=== PATIENT | female | born 1950 | race Caucasian/White ===

== ENCOUNTER 2016-05-18 14:56 | Outpatient (CLI) ==
[2012-10-30 01:27] VITALS: TEMP 98.6
[2016-04-29 20:22] VITALS: BMI 38.4
[2016-05-18 15:07] LABS: BASOPHILS % (AUTO) 0.2 % (0.0-3.0); EOSINOPHILS # (AUTO) 0.3 K/ul (0.0-0.7); EOSINOPHILS % (AUTO) 2.3 % (0.0-7.0); HEMOGLOBIN 10.3 g/dl (12.0-16.0); IMMATURE GRANULOCYTE % (AUTO) 0.3 % (0.0-5.0); LYMPHOCYTES # (AUTO) 1.9 K/uL (0.60-3.4); LYMPHOCYTES % (AUTO) 13.2 (10.0-50.0); MEAN CORPUSCULAR HEMOGLOBIN 27.5 pg (27.0-31.0); MEAN CORPUSCULAR HGB CONC 30.3 (31.8-35.4); MEAN CORPUSCULAR VOLUME 90.7 fl (81.0-99.0); MONOCYTES # (AUTO) 0.8 K/uL (0.4-2.0); MONOCYTES % (AUTO) 5.1 (0-10); NEUTROPHILS # (AUTO) 11.5 K/ul (2.0-6.9); NEUTROPHILS % (AUTO) 78.9; PLATELET COUNT 269 10^3/uL (140-440); RED BLOOD COUNT 3.75 10^6/ul (4.20-5.40); WHITE BLOOD COUNT 14.58 K/ul (4.6-10.2)
[2016-05-18 15:41] LABS: ALBUMIN/GLOBULIN RATIO 0.83; ANION GAP 12.7; BILIRUBIN,TOTAL 0.35 mg/dL (0.00-1.20); CALCIUM 9.3 mg/dL (8.2-10.2); CREATININE 0.75 mg/dL (0.60-1.30); POTASSIUM 3.7 mmol/L (3.5-5.10); TOTAL PROTEIN 6.6 g/dL (5.8-8.1)
== END 2016-05-18 14:57 | disposition home or self-care (01) ==
LOC: LAB 14:56
PROVIDERS: ATTEND Nurse Practitioner Family
DX: E78.5 Hyperlipidemia, unspecified (principal); E03.9 Hypothyroidism, unspecified; J44.9 Chronic obstructive pulmonary disease, unspecified; D64.9 Anemia, unspecified; R73.9 Hyperglycemia, unspecified; I10 Essential (primary) hypertension
CPT/HCPCS: 36415; 80053; 80061; 83036; 84443; 85025

== ENCOUNTER 2016-06-05 19:04 | Outpatient (CLI) ==
[2012-10-30 01:27] VITALS: TEMP 98.6
[2016-06-05 19:22] VITALS: BMI 38.0
== END 2016-06-05 19:05 | disposition home or self-care (01) ==
LOC: AMBL 19:04
PROVIDERS: ATTEND Emergency Medicine
DX: R06.9 Unspecified abnormalities of breathing (principal); R00.0 Tachycardia, unspecified; J44.9 Chronic obstructive pulmonary disease, unspecified

== ENCOUNTER 2016-06-05 19:16 | Inpatient (IN) ==
[2016-06-05] MEDS ORDERED: DUONEB NEB STA (19:20)
[2016-06-05] MEDS ORDERED: SOLU-MEDROL 125 MG IVP STA (19:20)
[2016-06-05 19:22] VITALS: BMI 38.0
[2016-06-05 19:43] LABS: BASOPHILS # (AUTO) 0.1 K/uL (0-0.2); BASOPHILS % (AUTO) 0.3 % (0.0-3.0); EOSINOPHILS # (AUTO) 0.3 K/ul (0.0-0.7); EOSINOPHILS % (AUTO) 1.8 % (0.0-7.0); HEMATOCRIT 32.9 % (37.0-47.0); HEMOGLOBIN 10.3 g/dl (12.0-16.0); IMMATURE GRANULOCYTE % (AUTO) 0.6 % (0.0-5.0); LYMPHOCYTES # (AUTO) 1.4 K/uL (0.60-3.4); LYMPHOCYTES % (AUTO) 7.9 (10.0-50.0); MEAN CORPUSCULAR HEMOGLOBIN 27.5 pg (27.0-31.0); MEAN CORPUSCULAR HGB CONC 31.3 (31.8-35.4); MEAN CORPUSCULAR VOLUME 87.7 fl (81.0-99.0); MONOCYTES # (AUTO) 0.9 K/uL (0.4-2.0); MONOCYTES % (AUTO) 5.1 (0-10); NEUTROPHILS # (AUTO) 15.4 K/ul (2.0-6.9); NEUTROPHILS % (AUTO) 84.3; PLATELET COUNT 308 10^3/uL (140-440); RED BLOOD COUNT 3.75 10^6/ul (4.20-5.40); WHITE BLOOD COUNT 18.18 K/ul (4.6-10.2)
--- NOTE | 2016-06-05 19:48 | ED.PDOC ---
General ED Provider: Dr. NAVJOT SANCHEZ Chief Complaint: Shortness of Air Stated Complaint: brought by ambulance for the worsening shortness of breath and also abdominal pain. Time Seen by Physician: 19:47 Mode of Arrival: Ambulance Information Source: Patient, EMT Nursing and Triage Documentation Reviewed and Agree: Yes Respiratory Complaint Exam - Shortness of Air Complaint/Exam Symptoms Are: Still present, Resolved Timing: Constant Initial Severity: Moderate Current Severity: Moderate Character: Reports: Dyspnea at rest Aggravating: Reports: Movement Alleviating: Reports: None Associated Signs and Symptoms: Reports: Cough, Wheezing, Calf swelling, Edema Related History: Reports: Similar episode History of Healthcare-Acquired Pneumonia: No Pulmonary Embolism Risk Factors: Reports: None Cardiac Risk Factors: Reports: None Pseudomonas Risk Factors: Reports: None Tuberculosis Risk Factors: Reports: None Home Oxygen Use: Yes Recent Stress Test: No Recent Echo/LV Function: No Respiratory Distress: Mild Stridor Present: No Tracheal Deviation: No Subcutaneous Emphysema: No Accessory Muscle Use: No Retractions: Not Present Diminished Breath Sounds: No Prolonged Expiratory Phase: Yes Unable to Speak Full Sentences: Yes Fatigue: No Leg Swelling: Yes Jt's Sign Present: No Grunting Respirations: No Differential Diagnoses: Pneumonia, Bronchitis, Other (diverticulitis) Review of Systems - Review Of Systems Constitutional: Reports: Fever, Malaise, Weakness Eyes: Reports: No symptoms Ears, Nose, Mouth, Throat: Reports: No symptoms Respiratory: Reports: Cough, Short of air Cardiac: Reports: No symptoms GI: Reports: Abdominal pain : Reports: No symptoms Musculoskeletal: Reports: No symptoms Skin: Reports: No symptoms Neurological: Reports: No symptoms Endocrine: Reports: No symptoms Hematologic/Lymphatic: Reports: No symptoms All Other Systems: Reviewed and Negative Past Medical History - Past Medical History Previously Healthy: Yes Endocrine: Reports: DM 2, Hypothyroid, Dyslipidemia Cardiovascular: Reports: CAD, Hypertension, CHF Respiratory: Reports: COPD Hematological: Reports: None Gastrointestinal: Reports: None Genitourinary: Reports: None Neuro/Psych: Reports: None Musculoskeletal: Reports: Arthritis, Back Pain Cancer: Reports: None Last Menstrual Period: na Other Pertinent Past Medical History: htn thy chol copd diverticulitis, PNA c- section - Surgical History General Surgical History: Reports: Unknown - Family History Family History: Reports: Unknown - Social History Smoking Status: Former smoker Hx Substance Use: Yes Alcohol Screening: None - Immunizations Tetanus Shot up to Date: No (unknown) Physical Exam - Physical Exam Appearance: Ill-appearing, Obese Ill-appearing: Mild Eyes: JM, EOMI, Conjunctiva clear ENT: Ears normal, Nose normal, Oropharynx normal Respiratory: Airway patent, Breath sounds clear, Breath sounds equal, Respirations nonlabored Cardiovascular: RRR, Pulses normal, No rub, No murmur GI/: Soft, No masses, Bowel sounds normal, No Organomegaly, Tender (left lower abdomen, ) Musculoskeletal: Normal strength, ROM intact, No edema, No calf tenderness Skin: Warm (left leg wound 1cm/1 cm, tender, no drainage, ), Dry, Normal color Neurological: Sensation intact, Motor intact, Reflexes intact, Cranial nerves intact, Alert, Oriented Psychiatric: Affect appropriate, Mood appropriate Interpretation - Radiology Interpretation Radiology Interpretation By: Radiologist Radiology Results: Positive (sigmoid diverticulitis) Exam Interpreted: CT Scan Physician Notification - Case Discussed Time of Notification: 21:56 (Dr Santos) Critical Care Note - Critical Care Note Total Time (mins): 0 Course - Course Hematology/Chemistry: 06/05/16 19:35 06/05/16 19:35 Orders, Labs, Meds: Lab Review 06/05/16 06/05/16 06/05/16 19:23 19:30 19:35 WBC 18.18 H RBC 3.75 L Hgb 10.3 L Hct 32.9 L MCV 87.7 MCH 27.5 MCHC 31.3 L RDW Coeff of [place] 16.5 H Plt Count 308 Immature Gran % (Auto) 0.6 Neut % (Auto) 84.3 Lymph % (Auto) 7.9 L [place] % (Auto) 5.1 Eos % (Auto) 1.8 Baso % (Auto) 0.3 Immature Gran # (Auto) 0.1 Neut # 15.4 H Lymph # 1.4 [place] # 0.9 Eos # 0.3 Baso # 0.1 D-Dimer 2.40 Puncture Site Rb O2 Saturation 100.0 ABG pH 7.535 H* ABG pCO2 42.5 ABG pO2 156.0 H ABG HCO3 35.9 H ABG Total CO2 37 H ABG Base Excess 13 H Cm Test + O2 Delivery Device Bnc Oxygen Liter Flow 4.00 FiO2 % 36.0 Sodium 139 Potassium 3.6 Chloride 98 Carbon Dioxide 30 Anion Gap 14.6 BUN 10 Creatinine 0.95 Estimated GFR (MDRD) 59.00 BUN/Creatinine Ratio 10.52 Glucose 135 H Calcium 9.5 Total Bilirubin 0.62 AST 18 ALT 18 Alkaline Phosphatase 75 Total Creatine Kinase 86 Troponin I < 0.0100 B-Natriuretic Peptide < 10 Total Protein 7.0 Albumin 2.8 L Globulin 4.2 Albumin/Globulin Ratio 0.67 Urine Color Urine Clarity Urine pH Ur Specific [place] Urine Protein Urine Glucose (UA) Urine Ketones Urine Blood Urine Nitrite Urine Bilirubin Urine Urobilinogen Ur Leukocyte Esterase Urine Microscopic RBC Ur Squamous Epith Cells Urine Bacteria Influenza A (Rapid) Negative Influenza B (Rapid) Negative 06/05/16 20:53 WBC RBC Hgb Hct MCV MCH MCHC RDW Coeff of [place] Plt Count Immature Gran % (Auto) Neut % (Auto) Lymph % (Auto) [place] % (Auto) Eos % (Auto) Baso % (Auto) Immature Gran # (Auto) Neut # Lymph # [place] # Eos # Baso # D-Dimer Puncture Site O2 Saturation ABG pH ABG pCO2 ABG pO2 ABG HCO3 ABG Total CO2 ABG Base Excess Cm Test O2 Delivery Device Oxygen Liter Flow FiO2 % Sodium Potassium Chloride Carbon Dioxide Anion Gap BUN Creatinine Estimated GFR (MDRD) BUN/Creatinine Ratio Glucose Calcium Total Bilirubin AST ALT Alkaline Phosphatase Total Creatine Kinase Troponin I B-Natriuretic Peptide Total Protein Albumin Globulin Albumin/Globulin Ratio Urine Color Yellow Urine Clarity Cloudy Urine pH 7.0 Ur Specific [place] 1.015 Urine Protein Trace Urine Glucose (UA) Negative Urine Ketones Trace Urine Blood Trace-intact Urine Nitrite Negative Urine Bilirubin 1+ Urine Urobilinogen 4.0 Ur Leukocyte Esterase Negative Urine Microscopic RBC 0-2 Ur Squamous Epith Cells 20-30 Urine Bacteria Trace Influenza A (Rapid) Influenza B (Rapid) Orders Category Date Time Status ABG DRAW REQUEST Stat CARDIO 06/05/16 19:23 Completed EKG-(ED ONLY) Stat CARDIO 06/05/16 19:23 Completed NEBULIZER TREATMENT Stat CARDIO 06/05/16 19:21 Completed ABG Stat LAB 06/05/16 19:23 Completed BLOOD CULTURE Stat LAB 06/05/16 19:27 Received BNP [B-TYPE NATRIURETIC PEPTIDE] Stat LAB 06/05/16 19:35 Completed CBC W/ AUTO DIFF Stat LAB 06/05/16 19:35 Completed COMPREHENSIVE METABOLIC PANEL Stat LAB 06/05/16 19:35 Completed CREATINE KINASE Stat LAB 06/05/16 19:35 Completed D-DIMER Stat LAB 06/05/16 19:35 Completed RAPID FLU A/B Stat LAB 06/05/16 19:30 Completed SPUTUM CULTURE Stat LAB 06/05/16 20:00 Received TROPONIN I Stat LAB 06/05/16 19:35 Completed UA [URINALYSIS C & S IF INDICATED] Stat LAB 06/05/16 20:53 Completed Ipratropium/Albuterol Neb [Duoneb] MEDS 06/05/16 19:20 Discontinued 1 vial NEB ONCE STA Methylprednisolone Sod Succ/Pf [Solu-Medrol 125 mg] MEDS 06/05/16 19:20 Discontinued 80 mg IVP ONCE STA CHEST, 1V AP ONLY Stat RADS 06/05/16 19:[address] ABDOMEN/PELVIS WO CONTRAST Stat RADS 06/05/16 20:03 Completed Medications Discontinued Medications Generic Name Dose Route Start Last Admin Trade Name Freq PRN Reason Stop Dose Admin Albuterol/Ipratropium 1 vial 06/05/16 19:20 06/05/16 19:58 Duoneb NEB 06/05/16 19:21 1 vial ONCE STA Administration Methylprednisolone Sodium Succinate 80 mg 06/05/16 19:20 06/05/16 19:38 Solu-Medrol 125 Mg IVP 06/05/16 19:21 80 mg ONCE STA Administration Vital Signs: Temp Pulse Resp BP Pulse Ox 06/05/16 20:03 100.0 F H 06/05/16 19:17 10.2 F L 110 H 36 H 151/94 H 98 Departure - Departure Time of Disposition: 21:57 Disposition: ADMITTED INPATIENT Discharge Problem: Sigmoid diverticulitis, Cellulitis of left lower extremity Instructions: Diverticulitis (ED) Condition: Stable Pt referred to PMD for follow-up: Yes Additional Instructions: Patient today tell that the left leg open wound is from the dog bite, couple days ago, own dog, it is alive, does not remember when was last tdap. Allergies/Adverse Reactions: Allergies No Known Allergies Allergy (Uncoded 04/29/16 17:28) Home Medications: Ambulatory Orders Albuterol Sulfate [Ventolin Hfa] 2 puff IH Q4HR PRN 02/17/16 Albuterol Sulfate 0.083% Neb [Albuterol 0.083% Neb] 1 vial NEB RTQ4H PRN Calcium Polycarbophil [Fiber-Caps] 4 cap PO DAILY PRN 06/05/16 Docusate Sodium [Colace] 300 mg PO BEDTIME 06/05/16 Ferrous Sulfate 650 mg PO BEDTIME 06/05/16 Levothyroxine Sodium [Synthroid] 75 mcg PO BEDTIME 06/05/16 Disposition Discussed With: Patient
[2016-06-05 19:56] LABS: ABG BASE EXCESS 13 (-2.0-2.0); ABG PCO2 42.5 mmHg (35-45); ABG PH 7.535 (7.35-7.45)
[2016-06-05 19:57] LABS: ABG HCO3 35.9 (22.0-26.0); ABG TCO2 37 (22.0-28.0)
[2016-06-05 19:57] LABS: FLU INTERNAL QC INTERNAL QC VALID; RAPID FLU A NEGATIVE (NEGATIVE); RAPID FLU B NEGATIVE (NEGATIVE)
[2016-06-05 20:10] LABS: ALANINE AMINOTRANSFERASE 18 U/L (12-78); ALBUMIN 2.8 g/dL (3.4-5.0); ALBUMIN/GLOBULIN RATIO 0.67; ALKALINE PHOSPHATASE 75 U/L (53-141); ANION GAP 14.6; ASPARTATE AMINO TRANSFERASE 18 U/L (15-37); BILIRUBIN,TOTAL 0.62 mg/dL (0.00-1.20); BLOOD UREA NITROGEN 10 mg/dL (7-18); BUN/CREATININE RATIO 10.52; CALCIUM 9.5 mg/dL (8.2-10.2); CARBON DIOXIDE 30 mmol/L (23-31); CHLORIDE 98 mmol/L (98-107); CREATINE KINASE 86 U/L; CREATININE 0.95 mg/dL (0.60-1.30); GLUCOSE 135 mg/dL (82-115); POTASSIUM 3.6 mmol/L (3.5-5.10); SODIUM 139 mmol/L (136-145)
--- NOTE | 2016-06-05 20:47 | CT ---
EXAM: CT of the abdomen and pelvis without contrast. HISTORY: Lower abdominal pain. PROCEDURE: Contiguous axial CT images of the abdomen and pelvis without contrast with coronal and s agittal reformats. FINDINGS: There is minimal bibasilar atelectasis. The liver, gallbladder, pancreas, spleen, adrenal glands and left kidney are normal in appearance. There is a fluid density cyst in the right kidney. There is a nonobstructive calcification in the cortex of the right kidney. The abdominal aorta is within normal limits in diameter. The appendix is normal in appearance. There is diverticulosis o f the colon. There is bowel wall thickening in the proximal sigmoid colon measuring up to 1.2 cm wi th adjacent inflammatory stranding consistent with diverticulitis. No free fluid or free air in the abdomen or pelvis. The bladder is minimally filled with no abnormality identified. The uterus is unremarkable. There are degenerative changes in the spine. Impression: Diverticulitis of the sigmoid colon as described. Nonobstructive right nephrolithiasis as described. Minimal bibasilar atelectasis.
--- NOTE | 2016-06-05 20:56 | DI ---
EXAM: Single view of the chest. History: Short of breath Comparison: Chest radiograph 04/29/2016 Findings: Heart size is normal. No focal consolidation. No appreciable pleural fluid and no pneum othorax. Calcified granulomas again seen within the thorax. No acute osseous abnormalities. Impression: No acute cardiopulmonary process.
[2016-06-05 20:58] LABS: BILIRUBIN,URINE 1+ (NEGATIVE); KETONES,URINE Trace (NEGATIVE); LEUKOCYTE ESTERASE ,URINE Negative (NEGATIVE); NITRITE,URINE Negative (NEGATIVE); PROTEIN,URINE Trace (NEGATIVE); URINE, BLOOD Trace-intact (NEGATIVE)
[2016-06-05 21:03] LABS: ADD URINE MICROSCOPIC YES
[2016-06-05 21:04] LABS: BACTERIA,URINE TRACE (NOT PRESENT)
[2016-06-05] MEDS ORDERED: TYLENOL PO PRN (22:02)
[2016-06-05] MEDS ORDERED: BOOSTRIX IM ONE (22:07)
[2016-06-05] MEDS ORDERED: FLAGYL 500 MG/100 ML 100 ML IV ONE (22:55)
[2016-06-05] MEDS ORDERED: FORTAZ ONE (22:56)
[2016-06-05] MEDS: SODIUM CHLORIDE 1,000 ML IV SCH (23:04)
[2016-06-05] MEDS: FLAGYL 500 MG/100 ML 500 MG in PREMIX 100 ML NS 1 BAG IV SCH (23:05)
[2016-06-06] MEDS: DUONEB NEB SCH ×5 (00:10→23:22)
[2016-06-06] MEDS: SODIUM CHLORIDE IV SCH ×4 (01:03→20:39)
[2016-06-06] MEDS: FORTAZ IV SCH ×4 (01:03→20:39)
[2016-06-06] MEDS ORDERED: FORTAZ ONE (04:26)
[2016-06-06] MEDS ORDERED: FLAGYL 500 MG/100 ML 100 ML IV ONE (04:27)
[2016-06-06] MEDS: FLAGYL 500 MG/100 ML 500 MG in PREMIX 100 ML NS 1 BAG IV SCH ×3 (04:33→21:56)
[2016-06-06 05:42] LABS: BASOPHILS % (AUTO) 0.2 % (0.0-3.0); LYMPHOCYTES # (AUTO) 0.8 K/uL (0.60-3.4); LYMPHOCYTES % (AUTO) 4.2 (10.0-50.0); MEAN CORPUSCULAR HEMOGLOBIN 27.6 pg (27.0-31.0); MEAN CORPUSCULAR HGB CONC 31.3 (31.8-35.4); MEAN CORPUSCULAR VOLUME 88.4 fl (81.0-99.0); MONOCYTES # (AUTO) 0.2 K/uL (0.4-2.0); MONOCYTES % (AUTO) 0.8 (0-10); NEUTROPHILS % (AUTO) 93.8; PLATELET COUNT 319 10^3/uL (140-440); RED BLOOD COUNT 3.62 10^6/ul (4.20-5.40); WHITE BLOOD COUNT 18.15 K/ul (4.6-10.2)
[2016-06-06 06:15] LABS: ALANINE AMINOTRANSFERASE 17 U/L (12-78); ALBUMIN 2.7 g/dL (3.4-5.0); ALBUMIN/GLOBULIN RATIO 0.66; ALKALINE PHOSPHATASE 75 U/L (53-141); ANION GAP 13.6; ASPARTATE AMINO TRANSFERASE 14 U/L (15-37); BILIRUBIN,TOTAL 0.65 mg/dL (0.00-1.20); BLOOD UREA NITROGEN 14 mg/dL (7-18); BUN/CREATININE RATIO 15.38; CALCIUM 9.4 mg/dL (8.2-10.2); CARBON DIOXIDE 29 mmol/L (23-31); CHLORIDE 98 mmol/L (98-107); CHOL/HDL RATIO 4.5 (4.5-5.5); CHOLESTEROL 166 mg/dL (0-200); CREATINE KINASE 87 U/L; CREATININE 0.91 mg/dL (0.60-1.30); GLUCOSE 189 mg/dL (82-115); HDL CHOLESTEROL 37 mg/dL (35-80); POTASSIUM 3.6 mmol/L (3.5-5.10); SODIUM 137 mmol/L (136-145); TOTAL PROTEIN 6.8 g/dL (5.8-8.1); TRIGLYCERIDES 78 mg/dL (30-150); VLDL CHOLESTEROL 16 mg/dL (2-30)
[2016-06-06] MEDS: SOLU-MEDROL 125 MG IVP SCH ×2 (08:37→20:40)
[2016-06-06] MEDS: LOVENOX SUBCUT SCH (08:37)
[2016-06-06 13:37] LABS: CREATINE KINASE 91 U/L
--- NOTE | 2016-06-06 16:04 | US ---
EXAM: Bilateral lower extremity venous doppler. HISTORY: Bilateral lower extremity pain and discoloration. COMPARISON: None available. TECHNIQUE: Multiple grayscale and color doppler images were obtained. FINDINGS: There is normal flow, compressibility and augmentation of flow within the right and left common femoral, greater saphenous, profunda, femoral, popliteal, posterior tibial, anterior tibial a nd peroneal veins. IMPRESSION: No evidence for right or left lower extremity deep vein thrombosis at the levels examined.
--- NOTE | 2016-06-06 18:08 | CT ---
EXAM: Noncontrast CT of the chest HISTORY: Cough, fever and shortness of breath COMPARISON: 06/05/2016 chest x-ray, 10/04/2014 CT TECHNIQUE: Noncontrast CT of the chest FINDINGS: There is mild right lower lobe atelectasis. Mild right upper lobe posterior tree in bud type opacit ies are seen on axial images 17 and 18 with a 5 mm nodule seen on axial image 16. Mild inferior rig ht upper lobe tree in bud type opacities are seen on axial images 24-27. Mild right middle lobe and right lower lobe tree in bud type opacities are also present. A right lower lobe calcified granulo ma is again seen. Minimal left upper lobe tree in bud type opacities seen posterior centrally on ax ial images 28-31. There is mild lingular atelectasis. No pneumothorax or pleural effusion is ident ified. Heart size is normal. Atherosclerotic calcifications are present, including the coronary arteries. Calcified mediastinal and right hilar lymph nodes are present. No mediastinal lymphadenopathy is s een. The thyroid is small or surgically absent. The gallbladder is mildly distended and without adjacent inflammatory changes. Splenic calcified gr anulomas are seen. Diverticulosis is partially imaged without evidence of diverticulitis. There ar e mild degenerative changes of the thoracic spine. IMPRESSION: Mild bilateral tree-in-bud type opacities compatible with small airway infection or inflammation. 5 mm right upper lobe pulmonary nodule which may be due to the inflammatory/infectious process. Fol low-up is recommended per the Fleischner Society guidelines as provided below. Mild atelectasis. Evidence of prior granulomatous infection. Atherosclerosis including the coronary arteries. Mildly distended gallbladder without CT evidence of acute cholecystitis. Comment: Fleischner Society Recommendations on Incidental Pulmonary Nodule Follow-up: -measurements are for average length and width, non solid (ground glass) or partly solid nodules may require longer follow-up. Low risk patient: (minimal or absent known risk factors) = 4mm- no follow up needed > 4-6mm- 12 mo, > 6-8mm- initial at 6-12 mo, then 18-24 mo if no change > 8mm- follow up CT at 3, 9, 24 mo, dynamic thin slice contrast CT, PET and/or biopsy High risk patient: (history of smoking or other risk factors) = 4mm- follow up CT at 12 mo > 4-6mm- initial CT at 6-12 mo then 18-24 mo if no change > 6-8mm- initial CT at 3-6, 9-12 then 18-24 mo > 8mm- same as low risk
[2016-06-07] MEDS: FLAGYL 500 MG/100 ML 500 MG in PREMIX 100 ML NS 1 BAG IV SCH ×3 (04:05→20:58)
[2016-06-07] MEDS: FORTAZ IV SCH ×3 (05:09→20:06)
[2016-06-07] MEDS: SODIUM CHLORIDE IV SCH ×3 (05:09→20:06)
[2016-06-07 05:28] LABS: HEMATOCRIT 29.7 % (37.0-47.0); HEMOGLOBIN 9.3 g/dl (12.0-16.0); LYMPHOCYTES # (AUTO) 1.3 K/uL (0.60-3.4); LYMPHOCYTES % (AUTO) 6.4 (10.0-50.0); MEAN CORPUSCULAR HEMOGLOBIN 27.8 pg (27.0-31.0); MEAN CORPUSCULAR HGB CONC 31.3 (31.8-35.4); MEAN CORPUSCULAR VOLUME 88.7 fl (81.0-99.0); MONOCYTES # (AUTO) 0.9 K/uL (0.4-2.0); MONOCYTES % (AUTO) 4.5 (0-10); NEUTROPHILS # (AUTO) 18.3 K/ul (2.0-6.9); NEUTROPHILS % (AUTO) 88.1; PLATELET COUNT 316 10^3/uL (140-440); RED BLOOD COUNT 3.35 10^6/ul (4.20-5.40); WHITE BLOOD COUNT 20.81 K/ul (4.6-10.2)
[2016-06-07] MEDS: DUONEB NEB SCH ×4 (05:35→23:18)
[2016-06-07 05:47] LABS: ALBUMIN 2.7 g/dL (3.4-5.0); ALBUMIN/GLOBULIN RATIO 0.75; ANION GAP 14.9; BILIRUBIN,TOTAL 0.26 mg/dL (0.00-1.20); BUN/CREATININE RATIO 15.21; CALCIUM 9.2 mg/dL (8.2-10.2); CREATININE 0.92 mg/dL (0.60-1.30); POTASSIUM 3.9 mmol/L (3.5-5.10); TOTAL PROTEIN 6.3 g/dL (5.8-8.1)
--- NOTE | 2016-06-07 09:09 | PN ---
CHIEF COMPLAINT: "I'm getting more short of breath", and also abdominal pain. " I had this pain previously." SOURCE OF HISTORY: Patient. HISTORY OF PRESENT ILLNESS: This is a 66 year old female who has chronic obstructive lung disease with respiratory failure with home oxygen. The patient also had a fever of 101.2 on presentation. The emergency room physician, Dr. Bailey, wanted to admit her to the hospital and I did advise him to wait until I get to see the patient, since this patient has an abdominal pain with diverticulitis which may need a surgical consultation. I did talk to the patient about that upon examining her that indeed she had tenderness and the CT scan does also show the diverticulitis. I re-informed the patient repeatedly that there is no surgeon to consult here at [facility] for the problem. She told me, however, that she does not want to be transferred and she will take the responsibility of staying here. I did again inform her that a times when we transfer the patient that the receiving facility or surgeon may make a comment that if she had been there a day or so before that she would not have this problem. The patient does understand that and again repeated her desire to stay at [facility]. Chest x-ray showed no acute cardiopulmonary processes and the Ct scan of the abdomen and pelvis showed diverticulitis of the sigmoid colon proximal portion about 1.2 cm in length with adjacent inflammatory stranding. CBC showed moderate leukocytosis 18,180, neutrophils 15, no immature cells or stabs. The patient was then admitted to the hospital for further treatment and diagnosis. PAST PERSONAL HISTORY: She had ventilation tubes inserted in both ears, hypertension, COPD, history of pneumonia, history of GERD, history of diverticulitis, anemia, . IV, Para IV, 1 , 0. FAMILY HISTORY: Father is still alive at 89 and is still self sufficient. The patient, however, is adopted. SOCIAL HISTORY: The patient is a and resides alone. She stopped smoking several years ago. MEDICATIONS: Prior to this admission Albuterol HFA two puffs every 4 hours prn Hydrochlorothiazide 25 mg daily Symbicort 160/4.5 mcg two puffs twice a day KCL 10 mEq twice a day Albuterol Sulfate 0.083% for nebulization in 3 cc vial one every 4 hours prn Ferrous Sulfate 325 mg tablet, two tablets at bedtime Fiber capsules 625 mg, four capsules daily Docusate Sodium 300 mg at bedtime Levothyroxine 75 mcg daily ALLERGIES: No known drug allergies. REVIEW OF SYSTEMS: CONSTITUTIONAL: The patient is with fever without any chills. She is more or less fatigued because of the shortness of breath that is increasing, as well as abdominal pain. SPEECH CORRECTION CONSULTANT: Denies any significant headaches. No history of seizures and no history of ataxia. VISUAL: Alexandre any double vision, blurred vision or transient loss of vision. AUDITORY: Hearing is adequate. He denies any tinnitus, pain or drainage. RESPIRATORY: The patient has increasing shortness of breath with cough. She had stopped smoking last April after the , so less than a month or a month. CARDIOVASCULAR: Denies any chest pain or chest tightness. GASTROINTESTINAL: The appetite has somewhat decreased. This patient is taking a laxative. She denies any diarrhea. She has abdominal pain, more so on the left lower quadrant. GENITOURINARY: She denies any burning on urination and she does have some frequency. MUSCULOSKELETAL: The patient has some leg cramps at times. She has pain on her knees and hips with getting up. INTEGUMENT: The patient claims to have a dog bite on the left lateral leg some two to three weeks ago. It was a dog that belongs to the family and the dog is still healthy at this time. Skin also on the legs are thicker from the edema. She denies any rash or pruritus. ENDOCRINE: Denies any polyuria, polydipsia. She denies any diabetes. HEMATOLOGIC: Denies any prolonged bleeding. PSYCHIATRIC: The patient's affect seemed to be normal, as well as the thought processes. PHYSICAL EXAMINATION: GENERAL: 66 year old female , obese with a BMI of 38.1 was admitted to the hospital because of increasing shortness of breath and abdominal pain in the last three to four days. VITAL SIGNS: Temperature at presentation 101.2, pulse rate 110, respiratory rate 36, oxygen saturation 98 on room air. Blood pressure 151/94. Pain in the abdomen on the pain scale, maybe one. HEAD: Unremarkable. FACE: Symmetrical and equal with no facial weakness and no remarkable tenderness in the frontal or maxillary sinus areas. EYES: Pupils equal/reactive to light about 3 mm in size. Conjunctivae slightly pale. Sclerae not icteric. EARS: Unremarkable. MOUTH: Unremarkable. THROAT: No inflammation, no tumors. NECK: No masses. No bruit. No tenderness. LUNGS: Breath sounds are heard in both sides with rales at both bases. Minimal expiratory wheeze. HEART: Audible and regular with good tones. No murmurs. ABDOMEN: Flat, protuberant and pendulous with marked tenderness in the left lower quadrant. There is some tenderness to the rest of the abdomen. Bowel sounds are active. LOWER EXTREMITIES: Markedly edematous legs with abnormal skin that has lost texture. The patient had a lacerated skin on the left lateral leg from a dog bite some two to three weeks ago and the dog belongs to the family and the dog still is alive and healthy. Pedal pulses are absent. UPPER EXTREMITIES: Symmetrical and equal. ASSESSMENT: 1. SIGMOID DIVERTICULITIS 2. CHRONIC OBSTRUCTIVE PULMONARY DISEASE WITH EXACERBATION 3. MARKEDLY ELEVATED BMI 4. BILATERAL CHRONIC LEG EDEMA 5. DOG BITE LEFT LATERAL LEG 6. HISTORY OF HYPERTENSION 7. HISTORY OF HYPOTHYROIDISM REPLACED 8. HISTORY OF DYSLIPIDEMIA 9. HISTORY OF MTDD
[2016-06-07] MEDS: LOVENOX SUBCUT SCH (09:43)
[2016-06-07] MEDS: SOLU-MEDROL 125 MG IVP SCH (09:44)
[2016-06-07] MEDS: SODIUM CHLORIDE 1,000 ML IV SCH (10:46)
[2016-06-07 16:29] LABS: C-PEPTIDE 16.6 ng/mL (1.1-4.4); INSULIN 165.8 uIU/mL (2.6-24.9)
[2016-06-08] MEDS: FORTAZ IV SCH ×3 (04:23→20:19)
[2016-06-08] MEDS: SODIUM CHLORIDE IV SCH ×3 (04:23→20:19)
[2016-06-08] MEDS: DUONEB NEB SCH ×4 (05:13→23:08)
[2016-06-08 05:16] LABS: BASOPHILS % (AUTO) 0.1 % (0.0-3.0); EOSINOPHILS % (AUTO) 0.1 % (0.0-7.0); HEMATOCRIT 29.9 % (37.0-47.0); HEMOGLOBIN 9.4 g/dl (12.0-16.0); LYMPHOCYTES # (AUTO) 2.7 K/uL (0.60-3.4); MEAN CORPUSCULAR HEMOGLOBIN 28.1 pg (27.0-31.0); MEAN CORPUSCULAR HGB CONC 31.4 (31.8-35.4); MEAN CORPUSCULAR VOLUME 89.3 fl (81.0-99.0); MONOCYTES % (AUTO) 5.5 (0-10); NEUTROPHILS # (AUTO) 13.9 K/ul (2.0-6.9); NEUTROPHILS % (AUTO) 78.3; PLATELET COUNT 321 10^3/uL (140-440); RED BLOOD COUNT 3.35 10^6/ul (4.20-5.40); WHITE BLOOD COUNT 17.78 K/ul (4.6-10.2)
[2016-06-08] MEDS: FLAGYL 500 MG/100 ML 500 MG in PREMIX 100 ML NS 1 BAG IV SCH ×3 (05:16→21:21)
[2016-06-08 05:38] LABS: ALBUMIN 2.6 g/dL (3.4-5.0); ALBUMIN/GLOBULIN RATIO 0.74; ANION GAP 13.4; BILIRUBIN,TOTAL 0.19 mg/dL (0.00-1.20); BUN/CREATININE RATIO 19.78; CALCIUM 8.8 mg/dL (8.2-10.2); CREATININE 0.91 mg/dL (0.60-1.30); POTASSIUM 3.4 mmol/L (3.5-5.10); TOTAL PROTEIN 6.1 g/dL (5.8-8.1)
--- NOTE | 2016-06-08 08:48 | PN ---
DATE OF VISIT: 06/07/16 The patient, today, is alert and not dyspneic, nor tachypneic. She claims that the pain in the abdomen is much less. The patient had not run any fever since 06/06/16. The patient was sitting on the commode when I examined her. There is still some tenderness in the left lower quadrant. LABS: The CBC today showed increasing WBC and this might be due to the steroid and the steroid is then discontinued today. The Tylenol also was discontinued. The WBC today was 20,810 and it was 18,118 on admission two days ago. The CMP is essentially unremarkable, except for sugar of 147 and Albumin of 2.7. VITAL SIGNS: The patient's vital signs today at 2 p.m. on 06/07/16 shows a temperature of 98.1, pulse 74, blood pressure 132/58, respiratory rate 22, no oxygen saturation recorded. There was one recorded at 10 a.m. at 98 with 2 Liters of nasal oxygen. LUNGS: Still has rales bilaterally, basal. HEART: Normal sinus rhythm. LOWER EXTREMITIES: The legs is still edematous and the patient is noncompliant as to being in bed. She always sits up and hangs her legs and her legs has significant edema now with some hypertrophic skin reaction to the edema. I reiterated to the patient that if she would develop an ulcer on the legs that it would be very difficult to heal. It is better prevented rather than treated. The prevention is to elevate the legs all of the time possible. She can be up and walking when she should be only sitting when she is going for the personal needs to the bathroom and also on eating. She could be up several times a day, as long as she is walking and go back to bed and elevate the legs. PROGNOSIS: Guarded. MTDD
[2016-06-08] MEDS: LOVENOX SUBCUT SCH (09:00)
[2016-06-08] MEDS ORDERED: FORTAZ IV SCH (13:00)
[2016-06-08] MEDS ORDERED: SODIUM CHLORIDE IV SCH (13:00)
[2016-06-08 15:16] LABS: BACTERIA IDENTIFICATION Final report (.)
[2016-06-08] MEDS ORDERED: FORTAZ IV ONE ×2 (16:19→20:19)
[2016-06-08] MEDS ORDERED: SODIUM CHLORIDE IV ONE ×2 (16:19→20:19)
[2016-06-08] MEDS: SODIUM CHLORIDE 1,000 ML IV SCH (20:15)
[2016-06-09] MEDS: SODIUM CHLORIDE 1,000 ML IV SCH (02:34)
[2016-06-09] MEDS ORDERED: SODIUM CHLORIDE IV ONE ×2 (04:02→13:23)
[2016-06-09] MEDS: SODIUM CHLORIDE IV SCH ×2 (04:02→13:23)
[2016-06-09] MEDS: FORTAZ IV SCH ×2 (04:02→13:23)
[2016-06-09] MEDS ORDERED: FORTAZ IV ONE ×2 (04:02→13:23)
[2016-06-09] MEDS: DUONEB NEB SCH ×2 (05:03→11:06)
[2016-06-09] MEDS: FLAGYL 500 MG/100 ML 500 MG in PREMIX 100 ML NS 1 BAG IV SCH ×2 (05:07→14:29)
[2016-06-09 06:47] LABS: BASOPHILS % (AUTO) 0.3 % (0.0-3.0); EOSINOPHILS # (AUTO) 0.2 K/ul (0.0-0.7); EOSINOPHILS % (AUTO) 1.4 % (0.0-7.0); HEMATOCRIT 32.8 % (37.0-47.0); HEMOGLOBIN 10.1 g/dl (12.0-16.0); IMMATURE GRANULOCYTE % (AUTO) 0.9 % (0.0-5.0); LYMPHOCYTES # (AUTO) 2.5 K/uL (0.60-3.4); LYMPHOCYTES % (AUTO) 17.7 (10.0-50.0); MEAN CORPUSCULAR HGB CONC 30.8 (31.8-35.4); MEAN CORPUSCULAR VOLUME 90.9 fl (81.0-99.0); MONOCYTES % (AUTO) 6.7 (0-10); NEUTROPHILS # (AUTO) 10.5 K/ul (2.0-6.9); PLATELET COUNT 309 10^3/uL (140-440); RED BLOOD COUNT 3.61 10^6/ul (4.20-5.40); WHITE BLOOD COUNT 14.39 K/ul (4.6-10.2)
[2016-06-09 07:16] LABS: ALBUMIN 2.7 g/dL (3.4-5.0); ALBUMIN/GLOBULIN RATIO 0.82; ANION GAP 12.5; BILIRUBIN,TOTAL 0.2 mg/dL (0.00-1.20); BUN/CREATININE RATIO 15.21; CALCIUM 8.4 mg/dL (8.2-10.2); CREATININE 0.92 mg/dL (0.60-1.30); POTASSIUM 3.5 mmol/L (3.5-5.10)
--- NOTE | 2016-06-09 09:28 | PN ---
DATE OF VISIT: 06/08/16 66 year old female who was admitted to the hospital because of sigmoid diverticulitis, as well as bronchitis bilateral. The findings were described as tree-in-bud type opacities. VITAL SIGNS: 06/08/16 at 6 p.m. showed a temperature of 98.1, pulse 72, blood pressure 136/64, respiratory rate 18, oxygen saturation 97 at 2 Liters. LUNGS:The patient does have diminished breath sounds with some rales at the left side. No obvious rales on the right. This patient was laying on the left side during auscultation. ABDOMEN: The abdomen is protuberant and she denies any remarkable tenderness to palpation in the left lower quadrant where she was quite exquisitely tender on admission. HEART: The heart is normal sinus rhythm. LOWER EXTREMITIES: Somewhat remarkable edema with thickened skin from a blister. I had advised this patient to be in bed and elevate the legs, but every time I had walked into the room this patient is sitting in the chair. When she is not sitting, she goes out and according to the nurses probably to smoke. She claims that she doesn't smoke. She stopped right after [place]. I had ordered nicotine and metabolite levels. I still do not have the report or results at this time. The WBC is still elevated at 17,780. The hemoglobin is down to 9.4, but more or less essentially the same as admission when you account for the hydration that she had received during this admission. The RDW Coefficient is elevated at 16.8. Electrolytes with slightly lower potassium. Her fasting Insulin level is 165.8 and her plasma C-peptid is 16.6. Her A1C was normal with an elevated sugar. This patient is not on any anti-diabetic medications. PROGNOSIS: Poor, since the patient is not compliant. MTDD
[2016-06-09] MEDS: LOVENOX SUBCUT SCH (09:40)
--- NOTE | 2016-06-09 13:20 | DI ---
EXAM: Two views of the chest. History: Bronchitis. Comparison: Chest radiograph 06/05/2016 Findings: Heart size is normal. No pneumothorax. Interval development of a mild left basilar infi ltrate and trace left pleural effusion. No acute osseous abnormalities. Impression: Interval development of mild left basilar infiltrate and trace left pleural effusion.
--- NOTE | 2016-06-09 13:45 | CT ---
Exam: CT abdomen and pelvis without contrast. Clinical indication: Follow-up sigmoid diverticulitis. TECHNIQUE: Axial unenhanced CT images of the abdomen and pelvis were obtained followed by coronal a nd sagittal reformats. Comparison is made to the prior study dated 06/05/2016. Findings: There is no free intra-abdominal gas or fluid. The previously noted inflammatory changes adjacent the proximal sigmoid colon which contains extensi ve diverticulosis is again seen and grossly unchanged in the short interval. There is no evidence o f acute complication. There is extensive colonic diverticulosis. The remainder of the bowel is unr emarkable. The gallbladder is absent. The liver, adrenals, pancreas, and spleen are unremarkable, other than incidental punctate splenic c alcifications consistent with old healed granulomatous disease. There is a small renal cortical cyst within the mid to inferior right kidney containing some thin pe ripheral calcifications. There is no evidence of renal calculi bilaterally. The bilateral kidneys are unremarkable. There are no enlarged abdominal or pelvic lymph nodes, by size criteria. There is a small calcified involuted uterine fibroid. The pelvic organs are otherwise grossly unremarkable, given the limitat ions of CT for evaluating them. There is a right lower lobe calcified pulmonary granuloma, consistent with incidental old healed gra nulomatous disease. There is some bibasilar areas of scarring. The remainder the visualized portio ns of the lower thorax are within normal limits. There is multilevel lumbar degenerative disc disease. Impression: 1. No gross interval change in the uncomplicated sigmoid diverticulitis. 2. Extensive colonic diverticulosis. 3. Otherwise unremarkable CT of the abdomen and pelvis, given the limitations of an unenhanced CT.
[2016-06-09 15:07] VITALS: BP 128/76
[2016-06-09 15:13] VITALS: TEMP 97
--- NOTE | 2016-06-13 13:12 | DS ---
PATIENT IDENTIFICATION: 66 year old female who is known to have chronic obstructive lung disease with respiratory failure with home oxygen was seen in the emergency room because of increasing shortness of breath, as well as abdominal pain since about three days ago or so. The patient, indeed, had tenderness in the abdomen, more on the left lower quadrant. CT scan of the abdomen showed some acute diverticulitis in the sigmoid colon. Lungs had bilateral basal rales and minimal expiratory wheezing. The patient's abdomen was markedly protuberant with tenderness in the left lower quadrant. The lower extremities were markedly edematous with chronic blisters on both legs, more on the left side. There was an area on the right lower anterior leg which appears to be lichenified. Pedal pulses are absent in the edematous feet. HOSPITAL COURSE: This patient was treated with Ceftazidime 1 gram every 8 hours IV and Flagyl 500 mg every 8 hours. The patient's WBC had remained elevated and a steroid injection was discontinued believing that may have contributed to the leukocytosis. Initial white cell count was 18,180 and did rise to 20,810. On the day of discharge, the WBC was down to 14,390. Arterial blood gases on admission showed a pH of 7.535, PCO2 42, PO2 156, bicarbonate 39.9, total CO2 37, oxygen saturation 100%, FIO2 36. The patient on the following day claimed that her abdomen is better and a less amount of pain and less tenderness. She is still using 2 Liters of oxygen, which she uses at home. The patient was sitting in the chair. I had discussed again with her with regards to her legs that the legs need to be elevated to prevent any ulceration, since there is already blisters and the skin is thickened. Her sugar was slightly elevated and the A1C was 5.4. The fasting Insulin level was 165.8 and the plasma C-peptid level was 16.6, both are markedly elevated. The patient remained afebrile for the rest of the hospital days and the abdomen was without any remarkable tenderness. The patient at the time of discharge was alert, ambulatory. She was not dyspneic, nor tachypneic, but is using 2 Liters of nasal oxygen. LUNGS: The lungs still have rales at the left base and none on the right. HEART: The heart is audible with good tones. ABDOMEN: The abdomen is markedly protuberant with no tenderness in the left lower quadrant. This patient has intertrigo in the abdominal skin folds. This patient was advised to wash it with soap and water and dry it with a liberal arts and human[employer] chair. LOWER EXTREMITIES: The lower extremities were essentially the same. The area of the dog bite on the left lateral leg is scabbing with no signs of active infection. The pedal pulses are still absent. The chemistry on discharge was essentially normal, except for slightly lower Albumin at 2.7. PLAN: 1. The patient is instructed to see the provider at the clinic this coming Monday. 2. She is prescribed Flagyl 500 mg three times a day. 3. Resume previous medications of Avelox 400 mg daily. 4. Keep the foot elevated above the heart as often as possible and as much as possible. FINAL DIAGNOSIS: 1. SIGMOID DIVERTICULITIS, IMPROVED 2. LEFT LOWER LOBE PNEUMONITIS, MAYBE 3. CHRONIC OBSTRUCTIVE PULMONARY DISEASE WITH RESPIRATORY FAILURE 4. ELEVATED BMI 38.1 5. INSULIN RESISTANT SYNDROME 6. BILATERAL LEG EDEMA, SEVERE 7. PERIPHERAL ARTERIAL DISEASE PROGNOSIS: Poor to guarded. MTDD
== END 2016-06-09 17:45 | disposition home or self-care (01) | DRG 391 ==
LOC: ED 19:16 → MEDSURG B 22:03
PROVIDERS: ADMIT General Practice; ATTEND General Practice
DX: K57.32 Diverticulitis of large intestine without perforation or abscess without bleeding (principal); J18.9 Pneumonia, unspecified organism; J44.1 Chronic obstructive pulmonary disease with (acute) exacerbation; J96.10 Chronic respiratory failure, unspecified whether with hypoxia or hypercapnia; L03.116 Cellulitis of left lower limb; R60.0 Localized edema; R23.8 Other skin changes; E88.81 Metabolic syndrome and other insulin resistance; E03.9 Hypothyroidism, unspecified; I73.9 Peripheral vascular disease, unspecified; S80.872A Other superficial bite, left lower leg, initial encounter; W54.0XXA Bitten by dog, initial encounter; Z99.81 Dependence on supplemental oxygen; Z79.899 Other long term (current) drug therapy; Z68.38 Body mass index [BMI] 38.0-38.9, adult; Z91.19 Patient's noncompliance with other medical treatment and regimen; Z87.891 Personal history of nicotine dependence
CPT/HCPCS: 36415; 80053; 80061; 80323; 81001; 82550; 82803; 83036; 83525; 83880; 84484; 84681; 85025; 85379; 87040; 87070; 87077; 87186; 87804; 90471; 93005; 93010; 94640; 96374; 97802; 99223; 99232; 99239; 99284

== ENCOUNTER 2016-08-02 03:57 | Inpatient (IN) | payer OTHER ==
[2016-08-02] MEDS ORDERED: XOPENEX 1.25 MG NEB STA (04:24)
[2016-08-02] MEDS ORDERED: SOLU-MEDROL 125 MG IVP STA (04:24)
[2016-08-02 04:50] LABS: ABG PH 7.474 (7.35-7.45)
[2016-08-02 04:51] LABS: ABG BASE EXCESS 8 (-2.0-2.0); ABG HCO3 31.1 (22.0-26.0); ABG PCO2 42.3 mmHg (35-45); ABG TCO2 32 (22.0-28.0)
[2016-08-02 04:54] LABS: BASOPHILS # (AUTO) 0.1 K/uL (0-0.2); BASOPHILS % (AUTO) 0.3 % (0.0-3.0); EOSINOPHILS # (AUTO) 0.2 K/ul (0.0-0.7); EOSINOPHILS % (AUTO) 1.1 % (0.0-7.0); HEMOGLOBIN 10.1 g/dl (12.0-16.0); IMMATURE GRANULOCYTE % (AUTO) 0.6 % (0.0-5.0); LYMPHOCYTES # (AUTO) 1.8 K/uL (0.60-3.4); LYMPHOCYTES % (AUTO) 10.1 (10.0-50.0); MEAN CORPUSCULAR HEMOGLOBIN 27.4 pg (27.0-31.0); MEAN CORPUSCULAR HGB CONC 31.6 (31.8-35.4); MEAN CORPUSCULAR VOLUME 86.7 fl (81.0-99.0); MONOCYTES # (AUTO) 1.2 K/uL (0.4-2.0); MONOCYTES % (AUTO) 6.8 (0-10); NEUTROPHILS # (AUTO) 14.6 K/ul (2.0-6.9); NEUTROPHILS % (AUTO) 81.1; PLATELET COUNT 326 10^3/uL (140-440); RED BLOOD COUNT 3.69 10^6/ul (4.20-5.40); WHITE BLOOD COUNT 17.98 K/ul (4.6-10.2)
[2016-08-02] MEDS: DUONEB NEB SCH ×4 (05:15→23:13)
[2016-08-02] MEDS ORDERED: DUONEB NEB ONE (05:15)
[2016-08-02 05:20] LABS: ALANINE AMINOTRANSFERASE 37 U/L (12-78); ALBUMIN 2.5 g/dL (3.4-5.0); ALBUMIN/GLOBULIN RATIO 0.51; ALKALINE PHOSPHATASE 106 U/L (53-141); ANION GAP 16.4; ASPARTATE AMINO TRANSFERASE 36 U/L (15-37); BILIRUBIN,TOTAL 0.94 mg/dL (0.00-1.20); BLOOD UREA NITROGEN 12 mg/dL (7-18); BUN/CREATININE RATIO 15.58; CALCIUM 9.6 mg/dL (8.2-10.2); CARBON DIOXIDE 27 mmol/L (23-31); CHLORIDE 95 mmol/L (98-107); CREATINE KINASE 67 U/L; CREATININE 0.77 mg/dL (0.60-1.30); GLUCOSE 111 mg/dL (82-115); POTASSIUM 3.4 mmol/L (3.5-5.10); SODIUM 135 mmol/L (136-145); TOTAL PROTEIN 7.4 g/dL (5.8-8.1)
--- NOTE | 2016-08-02 05:25 | CT ---
Exam: CT of the chest without contrast History: Dyspnea Technique: [address] of the chest without intravascular contrast FINDINGS: Nodular infiltrate in the anterior right upper lobe and right middle lobe. Consolidative change of the right middle lobe. The left lung is clear. Atherosclerotic calcification of the aor ta and coronary arteries. Granulomatous lymph node calcifications of the mediastinum and right hilu m. No pathologic lymph node enlargement or abundance. No acute findings of the chest wall soft tis sues or bony thorax. No acute findings of the upper abdomen. Impression: 1. Nodular and consolidative pneumonia of the right upper and right middle lobe.
--- NOTE | 2016-08-02 05:41 | ED.PDOC ---
General ED Provider: Dr. JULIETA ZAIDI-ER Chief Complaint: Shortness of Air Stated Complaint: im coughing up yellow stuff and im short of air Time Seen by Physician: 04:10 Mode of Arrival: Ambulance Information Source: Patient Exam Limitations: No limitations [facility] and Triage Documentation Reviewed and Agree: Yes Respiratory Complaint Exam - Shortness of Air Complaint/Exam Onset/Duration: 3 days Symptoms Are: Still present Timing: Constant Initial Severity: Mild Current Severity: Moderate Character: Reports: Dyspnea at rest, Dyspnea on exertion Aggravating: Reports: None Alleviating: Reports: Bronchodilators Associated Signs and Symptoms: Reports: Cough, Fever. Denies: Wheezing, Chest pain with cough, Chest pain, Chills, Diaphoresis, Nasal congestion, Dizziness, Calf swelling, Edema, Rapid breathing, Labored breathing, Decreased intake Related History: Reports: Similar episode History of Healthcare-Acquired Pneumonia: No Pseudomonas Risk Factors: Reports: Chronic Lung Disease Tuberculosis Risk Factors: Reports: Chronic Resp. Faliure Recent Stress Test: No Recent Echo/LV Function: No Respiratory Distress: None Stridor Present: No Tracheal Deviation: No Subcutaneous Emphysema: No Accessory Muscle Use: No Prolonged Expiratory Phase: No Unable to Speak Full Sentences: No Fatigue: No Leg Swelling: No Jt's Sign Present: No Grunting Respirations: No Kussmaul Respirations: No Differential Diagnoses: Pneumonia, Bronchitis Quality Indicator For Non-Traumatic Chest Pain/Syncope: EKG Performed Review of Systems - Review Of Systems Constitutional: Reports: Chills, Diaphoresis, Weakness Eyes: Reports: No symptoms Ears, Nose, Mouth, Throat: Reports: No symptoms Respiratory: Reports: Cough Cardiac: Reports: No symptoms GI: Reports: No symptoms : Reports: No symptoms Musculoskeletal: Reports: No symptoms Skin: Reports: No symptoms Neurological: Reports: No symptoms Endocrine: Reports: No symptoms Hematologic/Lymphatic: Reports: No symptoms All Other Systems: Reviewed and Negative Past Medical History - Past Medical History Previously Healthy: Yes Endocrine: Reports: DM 2, Hypothyroid, Dyslipidemia Cardiovascular: Reports: CAD, Hypertension, CHF Respiratory: Reports: COPD Hematological: Reports: None Gastrointestinal: Reports: None Genitourinary: Reports: None Neuro/Psych: Reports: None Musculoskeletal: Reports: Arthritis, Back Pain Cancer: Reports: None Last Menstrual Period: post menopausal Other Pertinent Past Medical History: htn thy chol copd diverticulitis, PNA c- section - Surgical History General Surgical History: Reports: Unknown - Family History Family History: Reports: Unknown - Social History Smoking Status: Former smoker Hx Substance Use: No Alcohol Screening: None - Immunizations Tetanus Shot up to Date: Yes (2016) Physical Exam - Physical Exam Appearance: Well-appearing, No pain distress, Well-nourished Eyes: JM, EOMI, Conjunctiva clear ENT: Ears normal, Nose normal, Oropharynx normal Neck: Supple Respiratory: Crackles, Rhonchi Cardiovascular: RRR, Pulses normal, No rub, No murmur GI/: Soft Musculoskeletal: Normal strength Skin: Warm, Dry, Normal color Neurological: Sensation intact Psychiatric: Affect appropriate, Mood appropriate Interpretation - Radiology Interpretation Radiology Interpretation By: Radiologist Radiology Results: Positive Exam Interpreted: CT Scan - EKG Interpretation Time of EKG #1: 05:40 Rate: Normal Rhythm: Sinus Ectopy: None [place]: NL ST Segment: Normal Physician Notification - Case Discussed Physician Notified: dr vargas Time of Notification: 05:44 Critical Care Note - Critical Care Note Total Time (mins): 0 Course - Course Hematology/Chemistry: 08/02/16 04:54 08/02/16 04:54 Orders, Labs, Meds: Lab Review 08/02/16 08/02/16 04:22 04:54 WBC 17.98 H RBC 3.69 L Hgb 10.1 L Hct 32.0 L MCV 86.7 MCH 27.4 MCHC 31.6 L RDW Coeff of [place] 15.7 H Plt Count 326 Immature Gran % (Auto) 0.6 Neut % (Auto) 81.1 Lymph % (Auto) 10.1 [place] % (Auto) 6.8 Eos % (Auto) 1.1 Baso % (Auto) 0.3 Immature Gran # (Auto) 0.1 Neut # 14.6 H Lymph # 1.8 [place] # 1.2 Eos # 0.2 Baso # 0.1 D-Dimer (Manual) 4194.27 Puncture Site Rb O2 Saturation 95.0 ABG pH 7.474 H ABG pCO2 42.3 ABG pO2 72.0 L ABG HCO3 31.1 H ABG Total CO2 32 H ABG Base Excess 8 H Cm Test + O2 Delivery Device Nc Oxygen Liter Flow 2.00 FiO2 % 28.0 Sodium 135 L Potassium 3.4 L Chloride 95 L Carbon Dioxide 27 Anion Gap 16.4 BUN 12 Creatinine 0.77 Estimated GFR (MDRD) 75.00 BUN/Creatinine Ratio 15.58 Glucose 111 Calcium 9.6 Total Bilirubin 0.94 AST 36 ALT 37 Alkaline Phosphatase 106 Total Creatine Kinase 67 Troponin I < 0.0100 B-Natriuretic Peptide < 10 Total Protein 7.4 Albumin 2.5 L Globulin 4.9 Albumin/Globulin Ratio 0.51 Orders Category Date Time Status ABG DRAW REQUEST Stat CARDIO 08/02/16 04:23 Completed EKG-(ED ONLY) Stat CARDIO 08/02/16 04:23 Completed NEBULIZER TREATMENT Stat CARDIO 08/02/16 04:24 Completed ED IV/MEDIPORT/POWERPORT .ONCE EMERGENCY 08/02/16 04:24 Active ABG Stat LAB 08/02/16 04:22 Completed B-TYPE NATRIURETIC PEPTIDE Stat LAB 08/02/16 04:54 Completed CBC W/ AUTO DIFF Stat LAB 08/02/16 04:54 Completed COMPREHENSIVE METABOLIC PANEL Stat LAB 08/02/16 04:54 Completed CREATINE KINASE Stat LAB 08/02/16 04:54 Completed D-DIMER Stat LAB 08/02/16 04:54 Completed TROPONIN I Stat LAB 08/02/16 04:54 Completed 0.9 % Sodium Chloride [Saline Flush] MEDS 08/02/16 04:24 Ordered 1 syr IVF PRN PRN Levalbuterol HCl [Xopenex 1.25 mg] MEDS 08/02/16 04:24 Discontinued 1 vial NEB ONCE STA Methylprednisolone Sod Succ/Pf [Solu-Medrol 125 mg] MEDS 08/02/16 04:24 Discontinued 125 [address] IVP ONCE [address] CHEST W/O CONTRAST Stat RADS 08/02/16 04:24 Completed Medications Generic Name Dose Route Start Last Admin Trade Name Freq PRN Reason Stop Dose Admin Sodium Chloride 1 syr 08/02/16 04:24 08/02/16 04:56 Saline Flush IVF 1 syr PRN PRN Administration To flush IV Discontinued Medications Generic Name Dose Route Start Last Admin Trade Name Freq PRN Reason Stop Dose Admin Levalbuterol HCl 1 vial 08/02/16 04:24 08/02/16 04:51 Xopenex 1.25 Mg NEB 08/02/16 04:25 1 vial ONCE STA Administration Methylprednisolone Sodium Succinate 125 mg 08/02/16 04:24 08/02/16 04:45 Solu-Medrol 125 Mg IVP 08/02/16 04:25 125 mg ONCE STA Administration Vital Signs: Temp Pulse Resp BP Pulse Ox 08/02/16 04:00 99.3 F 96 H 30 H 113/75 95 Departure - Departure Time of Disposition: 05:44 Disposition: ADMITTED INPATIENT Discharge Problem: Pneumonia Qualifiers: Pneumonia type: due to unspecified organism Laterality: right Lung location: middle lobe of lung Qualifier Code: (J18.1) Lobar pneumonia, unspecified organism Instructions: Community Acquired Pneumonia (ED) Condition: Good Pt referred to PMD for follow-up: Yes Allergies/Adverse Reactions: Allergies No Known Allergies Allergy (Uncoded 08/02/16 05:15) Home Medications: Ambulatory Orders Albuterol Sulfate [Ventolin Hfa] 2 puff IH Q4HR PRN 02/17/16 Calcium Polycarbophil [Fiber-Caps] 4 cap PO DAILY PRN 06/05/16 Docusate Sodium [Colace] 300 mg PO BEDTIME 06/05/16 Levothyroxine Sodium [Synthroid] 75 mcg PO BEDTIME 06/05/16 Disposition Discussed With: Patient
[2016-08-02] MEDS ORDERED: LEVAQUIN 750 MG in PREMIX 150 ML D5W 1 BAG IV STA (05:48)
[2016-08-02] MEDS ORDERED: ANTIVERT PO PRN (05:50)
[2016-08-02] MEDS ORDERED: LEVAQUIN 150 ML IV ONE (05:54)
[2016-08-02] MEDS ORDERED: SODIUM CHLORIDE 1,000 ML IV SCH (06:00)
[2016-08-02 06:39] VITALS: BMI 36.0
[2016-08-02] MEDS: SYMBICORT 160-4.5 MCG INHALER IH SCH ×2 (08:33→20:24)
[2016-08-02] MEDS: MICRO-K CAP PO SCH ×2 (08:33→20:25)
[2016-08-02] MEDS ORDERED: NON-FORMULARY MEDICATION (Potassium Chloride [Potassium Chloride] 10 MEQ) PO SCH ×22 (09:00)
[2016-08-02] MEDS ORDERED: LOVENOX SUBCUT SCH (09:00)
[2016-08-02] MEDS ORDERED: FERROUS SULFATE PO SCH ×2 (21:00)
[2016-08-02] MEDS ORDERED: SYNTHROID PO SCH (21:00)
[2016-08-02] MEDS ORDERED: COLACE PO SCH (21:00)
[2016-08-02] MEDS ORDERED: HYDROCHLOROTHIAZIDE PO SCH (21:00)
[2016-08-02 22:12] VITALS: TEMP 97.3
--- NOTE | 2016-08-02 22:31 | CT ---
EXAM: CT abdomen pelvis without intravenous contrast 08/02/2016. Sagittal and coronal reformatted images obtained HISTORY: Lower abdominal pain COMPARISON: 06/09/2016, 08/02/2016 FINDINGS: Please refer to report of CT chest for findings within the lung bases. The liver shows n o acute abnormality. Gallbladder appears contracted. The adrenal glands and kidneys show no acute abnormality. The spleen and pancreas show no acute abn ormality. There is no evidence of bowel obstruction. Normal appendix. Unremarkable urinary bladder. There is no free fluid. Extensive colonic diverticulosis. No free air identified. There has been interval development of ovoid mottled soft tissue and gas collection within the anter ior abdominal wall musculature. On axial series image 110 this area measures approximately 8.3 x 3. 4 cm diameter. This likely represents abscess. This is not well characterized due to lack of intrav enous contrast. Correlate with surgical history. No surgical history provided. IMPRESSION: 1. Acute diverticulitis of the sigmoid colon. There is no free air or free fluid within the anatom ic abdomen or pelvis. Inflammatory stranding / edema surrounds the sigmoid colon. 2. Interval development of a mixed soft tissue density and gas collection within the anterior abdom inal wall musculature. This likely represents abscess. Limited characterization due to the lack of intravenous contrast. Correlate with surgical history. 3. This would be amendable to percutaneous drainage. Contrast enhanced examination could also be c onsidered for further characterization.
[2016-08-02] MEDS ORDERED: FLAGYL 500 MG/100 ML 500 MG in PREMIX 100 ML NS 1 BAG IV SCH (23:00)
[2016-08-02] MEDS ORDERED: FLAGYL 500 MG/100 ML 100 ML IV ONE (23:04)
[2016-08-02 23:12] LABS: BASOPHILS % (AUTO) 0.1 % (0.0-3.0); EOSINOPHILS % (AUTO) 0.1 % (0.0-7.0); HEMATOCRIT 32.6 % (37.0-47.0); HEMOGLOBIN 10.5 g/dl (12.0-16.0); LYMPHOCYTES # (AUTO) 1.3 K/uL (0.60-3.4); LYMPHOCYTES % (AUTO) 6.7 (10.0-50.0); MEAN CORPUSCULAR HEMOGLOBIN 27.9 pg (27.0-31.0); MEAN CORPUSCULAR HGB CONC 32.2 (31.8-35.4); MEAN CORPUSCULAR VOLUME 86.5 fl (81.0-99.0); MONOCYTES % (AUTO) 5.1 (0-10); NEUTROPHILS # (AUTO) 17.2 K/ul (2.0-6.9); PLATELET COUNT 354 10^3/uL (140-440); RED BLOOD COUNT 3.77 10^6/ul (4.20-5.40); WHITE BLOOD COUNT 19.77 K/ul (4.6-10.2)
--- NOTE | 2016-08-03 00:33 | CT ---
EXAM: CT of the abdomen and pelvis without IV contrast. HISTORY: Abdominal pain. PROCEDURE: After the intravenous injection of contrast contiguous axial CT images of the abdomen an d pelvis were obtained with coronal and sagittal reformats. FINDINGS: Comparison made with CT of 08/02/2016 at 21 15. There is minimal bibasilar consolidation. The liver is normal in appearance. There is a gallstone in the gallbladder. The gallbladder is w ithin normal limits in size. The pancreas, adrenal glands and left kidney are normal in appearance. There is a 1.6 cm complex lesion in the middle pole of the right kidney. There is a fluid density cyst in the lower pole of the right kidney. There are multiple ill-defined low density lesions in t he spleen measuring up to 2.1 cm. The abdominal aorta is within normal limits in diameter. The appen wicho is normal in appearance. There is ill-defined bowel wall thickening in the proximal sigmoid colo n with adjacent inflammatory stranding consistent with diverticulitis. No free fluid or free air in the abdomen or pelvis. Redemonstrated is an intramuscular collection of fluid and air in the anterio r wall of the pelvis measuring 3.7 x 7.9 cm consistent with an abscess. There are degenerative mesa ges in the spine. Impression: Diverticulitis of the sigmoid colon as described. 7.9 x 3.7 cm abscess in the anterior wall of the pelvis as described. 1.6 cm complex lesion in the middle pole of the right kidney. Recommend outpatient ultrasound for f urther evaluation. Multiple ill-defined low density lesions in the spleen measuring up to 2.1 cm. Recommend outpatient ultrasound for further evaluation. Cholelithiasis as described. Minimal bibasilar atelectasis and/or pneumonia.
[2016-08-03 03:03] VITALS: BP 95/63
[2016-08-03] MEDS ORDERED: LEVAQUIN 750 MG in PREMIX 150 ML D5W 1 BAG IV SCH (09:00)
--- NOTE | 2016-08-03 10:45 | HP ---
CHIEF COMPLAINT: Shortness of breath, abdominal pain more on the left side aggravated by coughing. Coughing with some purulent sputum. SOURCE OF HISTORY: Patient and nurse triage at the emergency room and MD notes. HISTORY OF PRESENT ILLNESS: The patient claimed to have experienced increasing shortness of breath with cough in the last two days with slightly pale purulent sputum. She also did mention abdominal pain which more or less was aggravated by coughing. The area is tender to touch. The patient claimed to have been diagnosed with diverticulitis. The last bowel movement was three or four days ago. The patient was evaluated in the emergency room and subsequently admitted. CT scan of the chest showed nodular and consolidated pneumonia of the right upper and middle lobe. CBC was 17,980, neutrophils 14.6, no bands or stabs. D-Dimer was high at 4,194.27. Arterial blood gases acceptable. Cardiac enzymes normal. BNP normal, less than 10. Procalcitonin 0.28, still below normal. PAST PERSONAL HISTORY: The patient had tubes inserted in both ears. Hypertension, COPD with respiratory failure using oxygen two to three liters per minute at home. Past history of pneumonia. History of GERD, history of diverticulitis, anemia, , IV, Para III, -1. FAMILY HISTORY: Father is still alive at 101 and is still self sufficient. The patient, however, is adopted. SOCIAL HISTORY: The patient is a and resides alone. She stopped smoking at the beginning of this year. MEDICATIONS: Prior to this admission. Albuterol Sulfate two puffs every 4 hours prn HCTZ 25 mg daily Symbicort 160/4.5 mcg two puffs twice daily KCL 10 mEq tablet twice a day Fiber-Caps 625 mg tablet, four caps daily Levothyroxine Sodium 75 mcg daily Ferrous Sulfate 325 mg tablet, two tablets at bedtime Albuterol Sulfate 2.5 mg/3 cc per nebulizer every 4 to 6 hours prn Meclizine 25 mg tablet twice a day as needed Colace 100 mg capsule, three capsules daily ALLERGIES: No known drug allergies. REVIEW OF SYSTEMS: CONSTITUTIONAL: The patient had fever and weakness and maybe sweating. No actual shaking chills. FAN BLADE [employer]ER: Denies any headaches or dizziness. VISUAL: Denies any double vision, blurred vision or transient loss of vision. AUDITORY: Denies any pain, tinnitus or drainage in both ears and no significant hearing loss. RESPIRATORY: The patient had been coughing for the last three days with some slightly purulent sputum. She is complaining of increasing shortness of breath in spite of her oxygen use. She stopped smoking in the early part of this year. She denies any hemoptysis. CARDIOVASCULAR: Denies any chest pain or chest tightness. GASTROINTESTINAL: The patient does have pain in the lower abdomen, more on the left lower quadrant. The pain is aggravated by coughing. She denies any diarrhea, but somewhat constipated. Her last BM was three to four days ago. GENITOURINARY: Denies any burning on urination. She does have frequency. MUSCULOSKELETAL: Bilateral knee pain, as well as hips. She has problems getting up. She also does have muscular spasms intermittently. INTEGUMENT: No rash or pruritus. She had a history of dog bite. She says this happened some two to three weeks before the last admission and the dog was still fine at that point in time. ENDOCRINE: Denies any polyuria or polydipsia. HEMATOLOGIC: Denies any prolonged bleeding. PSYCHIATRIC: The patient's affect is normal. PHYSICAL EXAMINATION: GENERAL: We have a 66 year old female admitted to the hospital because of pneumonia on the right upper and middle lobe with increasing shortness of breath, plus low grade temperature. VITAL SIGNS: Temperature on the floor 98, pulse 91, blood pressure 108/69, respiratory rate 24, oxygen saturation 96 at two liters of oxygen per nasal. HEAD: Unremarkable. FACE: Symmetrical and equal with no facial weakness. No remarkable tenderness in the frontal or maxillary sinus areas to palpation under pressure. EYES: Pupils equal/reactive to light about 3 mm in size. Conjunctivae slightly pale. Sclerae not icteric. EARS: Unremarkable. MOUTH: Unremarkable. THROAT: No inflammation, tumors or exudates. NECK: No masses. No bruit. No tenderness. CHEST: Symmetrical and equal with satisfactory expansion. LUNGS: Breath sounds are heard in both sides, diminished. A few rales at both bases and some expiratory wheezing posteriorly. HEART: Audible and regular with good tones. No murmurs. ABDOMEN: Protuberant, pendulous with marked tenderness in the left lower quadrant. No remarkable tenderness in the right, as well as the upper abdomen. Bowel sounds are active. No masses palpable. LOWER EXTREMITIES: Markedly edematous legs with abnormal skin texture. Pedal pulses are absent. UPPER EXTREMITIES: Symmetrical and equal. ASSESSMENT: 1. RIGHT UPPER AND MIDDLE LOBE PNEUMONITIS 2. SIGMOID DIVERTICULITIS 3. CHRONIC OBSTRUCTIVE LUNG DISEASE WITH EXACERBATION 4. CHRONIC RESPIRATORY FAILURE WITH EXACERBATION 5. MARKEDLY ELEVATED BMI 6. BILATERAL CHRONIC LEG EDEMA 7. HISTORY OF HYPERTENSION 8. HISTORY OF HYPOTHYROIDISM, REPLACED 9. HISTORY OF DYSLIPIDEMIA 10. HISTORY OF 11. HISTORY OF CHRONIC TOBACCO USE AND ABUSE, STOPPED BEGINNING OF THIS YEAR PROGNOSIS: Guarded. MTDD
--- NOTE | 2016-08-03 10:51 | PN ---
DATE OF VISIT: 08/02/16 AT 1 P.M. The patient was admitted earlier and the patient claimed that she is feeling better after she had a bowel movement. She still has pain in the lower abdomen with soreness in the left lower quadrant. She is coughing less. She was seen at the emergency room early in the morning at 4:10 a.m. VITAL SIGNS: The last vital signs prior to 1 p.m. was 6:15 a.m. with a temperature 98.4, pulse 98, blood pressure 127/71, respiratory rate 24, oxygen saturation 96 at 2 liters. LUNGS: With diminished breath sounds with a few rales and some expiratory wheezing, but minimal The patient claimed that she is feeling better. JOVANYD
--- NOTE | 2016-08-19 09:03 | DS ---
PATIENT IDENTIFICATION: 66 year old female was admitted to the hospital via the emergency room complaining of increasing shortness of breath in the last two days with some purulent sputum. CT of the chest showed right upper and middle lobe pneumonitis. She also did complain of abdominal pain, more in the lower abdomen aggravated by coughing. This patient was known to have previous episodes of diverticulitis. HOSPITAL COURSE: The patient was alert, oriented and cooperative and not in any distress at the time of examination. LUNGS: Breath sounds were diminished in both sides with rales bilateral, basal and some expiratory wheezing. HEART: Normal sinus rhythm. ABDOMEN: Tender, more on the left lower quadrant. Bowel sounds are active. 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 The patient during midday claimed that she is feeling better, although she still has tenderness. Labs at the emergency room showed a WBC of 17,990 and the lab done in the evening of 08/02/2016 at 23:10 was 19,770, slightly higher than initial. Neutrophils had increased from 14.6 to 17. No significant stabs or bands. The D-Dimer was elevated at 4,194.27. CT ordered was noncontrasted in the emergency. The patient was given Levofloxacin 750 mg IV once in the emergency room and continued on daily. She also was given Lovenox 40 mg subcutaneously daily, as well as Methylprednisolone 125 mg IV once. She was continued on her Albuterol inhaler and Symbicort and the rest of the other medications. The patient on 08/02/2016 at 5:38 p.m. showed a temperature of 98.0, pulse 91, blood pressure 108/69, respiratory rate 24, oxygen saturation 96 at 2 Liters. Before that her temperature was also normal. Because of the persistent abdominal pain and some slightly raised area towards the left side of the abdomen from the midline, a CT scan of the abdomen was done without contrast. The scan was read as acute diverticulitis of the sigmoid colon. No free fluid in the pelvis. Soft tissue mass with gas in the anterior abdominal wall. Most likely represents an abscess. The radiologist mentioned that limited characterization because of lack of contrast. A contrasted study was then done and now shows 7.9 by 3.7 abscess in the anterior abdominal wall of the pelvis. I.6 cm complex lesion in the middle pole of the right kidney. Ultrasound was recommended. Cholelithiasis as described. Because of the abscess formation, this patient would most likely need a surgical consultation and transfer to another facility with surgical availability was pursued. I did talk to the hospitalist at [facility] and then indicated that this patient was admitted for right upper and middle lobe pneumonia with shortness of breath, but also had history of diverticulitis and now has an abdominal wall abscess with source undetermined. The hospitalist graciously accepted the patient for transfer. This patient was then transferred to [facility] with a diagnosis: 1. Right upper and middle lobe pneumonia 2. Abdominal wall abscess 3. Sigmoid diverticulitis, acute 4. History of chronic obstructive lung disease 5. History of chronic respiratory failure 6. Elevated BMI 7. History of hypertension 8. History of hypothyroidism, replaced 9. History of dyslipidemia 10. History of 11. History of chronic tobacco use and abuse, stopped recently PROGNOSIS: Guarded. MTDD
== END 2016-08-03 02:45 | disposition short-term general hospital (02) | DRG 194 ==
LOC: ED 03:57 → MEDSURG B 05:49
PROVIDERS: ADMIT General Practice; ATTEND General Practice
DX: J18.1 Lobar pneumonia, unspecified organism (principal); L02.211 Cutaneous abscess of abdominal wall; K57.32 Diverticulitis of large intestine without perforation or abscess without bleeding; K80.20 Calculus of gallbladder without cholecystitis without obstruction; N28.9 Disorder of kidney and ureter, unspecified; I10 Essential (primary) hypertension; E03.8 Other specified hypothyroidism; R06.02 Shortness of breath; E78.5 Hyperlipidemia, unspecified; R63.8 Other symptoms and signs concerning food and fluid intake; Z79.899 Other long term (current) drug therapy; Z87.09 Personal history of other diseases of the respiratory system; Z99.81 Dependence on supplemental oxygen; Z87.891 Personal history of nicotine dependence
CPT/HCPCS: 36415; 80053; 82550; 82803; 83880; 84145; 84484; 85025; 85379; 87040; 93005; 93010; 94640; 96374; 96375; 99223; 99239; 99285

== ENCOUNTER 2016-08-03 02:48 | Outpatient (CLI) ==
[2012-10-30 01:27] VITALS: TEMP 98.6
[2016-08-02 06:39] VITALS: BMI 36.0
== END 2016-08-03 02:49 | disposition home or self-care (01) ==
LOC: AMBL 02:48
PROVIDERS: ATTEND Emergency Medicine
DX: L02.211 Cutaneous abscess of abdominal wall (principal); J18.9 Pneumonia, unspecified organism; J96.00 Acute respiratory failure, unspecified whether with hypoxia or hypercapnia

== ENCOUNTER 2016-08-23 21:06 | Emergency (ER) | payer OTHER ==
[2016-08-23 21:32] VITALS: BP 82/48; TEMP 101.4; BMI 32.8
[2016-08-23 21:42] LABS: BASOPHILS % (AUTO) 0.2 % (0.0-3.0); EOSINOPHILS # (AUTO) 0.1 K/ul (0.0-0.7); EOSINOPHILS % (AUTO) 1.3 % (0.0-7.0); HEMATOCRIT 29.7 % (37.0-47.0); HEMOGLOBIN 9.6 g/dl (12.0-16.0); IMMATURE GRANULOCYTE % (AUTO) 0.3 % (0.0-5.0); LYMPHOCYTES # (AUTO) 1.3 K/uL (0.60-3.4); LYMPHOCYTES % (AUTO) 12.9 (10.0-50.0); MEAN CORPUSCULAR HEMOGLOBIN 28.5 pg (27.0-31.0); MEAN CORPUSCULAR HGB CONC 32.3 (31.8-35.4); MEAN CORPUSCULAR VOLUME 88.1 fl (81.0-99.0); MONOCYTES # (AUTO) 1.1 K/uL (0.4-2.0); MONOCYTES % (AUTO) 10.9 (0-10); NEUTROPHILS # (AUTO) 7.6 K/ul (2.0-6.9); NEUTROPHILS % (AUTO) 74.4; PLATELET COUNT 271 10^3/uL (140-440); RED BLOOD COUNT 3.37 10^6/ul (4.20-5.40); WHITE BLOOD COUNT 10.19 K/ul (4.6-10.2)
--- NOTE | 2016-08-23 21:50 | CT ---
EXAM: CT abdomen and pelvis without contrast HISTORY: Lower abdominal pain, history of diverticulitis TECHNIQUE: Multi-slice transaxial helical with coronal and sagittal reformed images COMPARISON: CT abdomen/pelvis from 08/02/2016 FINDINGS: There are small alveolar opacities in the right lower lobe, lingula, and middle lobe. Thes e are probably unchanged since the prior CT. The heart size is normal. No pericardial or pleural e ffusions are detected. A calcified granuloma is noted in the right lower lobe. The hepatic attenuation is minimally low diffusely relative to the spleen. The gallbladder is prese nt without biliary dilatation. The pancreas and adrenal glands are grossly normal. Calcified granu gege are detected in the otherwise normal spleen. The kidneys and ureters are grossly normal withi n the confines of a noncontrast exam. Hypodense renal lesions as seen on the prior CT are not visua lized without contrast. The nonopacified bladder is grossly normal. Diverticula arise from the large bowel diffusely. There is suggestion of mild focal fat stranding a djacent to the distal descending colon without drainable fluid collections are free air associated. There is a fluid collection within the ventral lower abdominal wall that is increased in size since the previous examination with multiple foci of gas measuring 16.6 x 5.1 x 8.5 cm. Loops of intesti ne extend close to the region of the ventral abdominal wall. Small bowel loops are mildly dilated d iffusely without distension. The appendix is normal. The uterus and adnexa are grossly normal. The bones are free of suspicious osteolytic or osteoblastic lesions. IMPRESSION: 1. Large gas containing fluid collection in the lower ventral abdominal wall, increased in size sin ce previous study. An abscess is a possibility.? Colocutaneous fistula. 2. Minimal diffuse hepatic steatosis. 3. Old granulomas disease. 4. Colonic diverticulosis and colonic diverticulitis at the distal descending colon.
[2016-08-23 22:04] LABS: ALBUMIN 2.4 g/dL (3.4-5.0); ALBUMIN/GLOBULIN RATIO 0.59; ANION GAP 14.2; BILIRUBIN,TOTAL 0.98 mg/dL (0.00-1.20); BUN/CREATININE RATIO 9.63; CALCIUM 8.8 mg/dL (8.2-10.2); CREATININE 0.83 mg/dL (0.60-1.30); POTASSIUM 3.2 mmol/L (3.5-5.10); TOTAL PROTEIN 6.5 g/dL (5.8-8.1)
[2016-08-23] MEDS ORDERED: MORPHINE 2 MG/ML SYRINGE IVP STA (22:36)
[2016-08-23] MEDS ORDERED: LEVAQUIN 500 MG in PREMIX 100 ML D5W 1 BAG IV STA (22:36)
[2016-08-23] MEDS ORDERED: ZOFRAN 4 MG/2 ML IVP STA (22:37)
--- NOTE | 2016-08-23 22:37 | ED.PDOC ---
General ED Provider: Dr. KARLY POLLOCK Chief Complaint: Abdominal Pain Stated Complaint: Patient states that she had an abdominal abscess 2 weeks ago for which she was seen in [facility]. Jenniferse has pain now across the abdomen and feels like it is Diverticulitis again. Time Seen by Physician: 21:30 Mode of Arrival: Ambulance Information Source: Patient, EMT Exam Limitations: No limitations Primary Care Provider: NAVJOT MCCURDY Nursing and Triage Documentation Reviewed and Agree: Yes GI Complaint Exam - Abdominal Pain Complaint/Exam Onset: Gradual Duration: 2 days Symptoms Are: Still present Timing: Constant Location of Pain: Discrete (lower abdomen) Radiates To: Reports: Back Character: Reports: Dull, Aching, Throbbing Aggravating: Reports: Movement Alleviating: Reports: Rest Associated Signs and Symptoms: Reports: Back pain, Nausea, Decreased activity. Denies: Diaphoresis, Fever, Cough, Chest pain, Dizziness, Constipation, Blood in stool, Dysuria, Urinary frequency, Decreased urine output, Decreased appetite , Vaginal bleeding, Vaginal discharge, Vomiting, Diarrhea, Sore throat AAA Risk Factors: Reports: None Cardiac Risk Factors: Reports: None Ectopic Risk Factors: Reports: None Ovarian Torsion Risk Factors: Reports: None Surgical Obstruction Risk Factors: Reports: Prior abdominal surgery Abdominal Findings: Absent: Pulsatile mass, Abdominal distention, Unequal femoral pulses, Rebound tenderness, Peritoneal signs, [place]'s [place] tender, CVA Tenderness, Hernia, Inguinal swelling Differential Diagnoses: Gastroenteritis Review of Systems - Review Of Systems Constitutional: Reports: No symptoms Eyes: Reports: No symptoms Ears, Nose, Mouth, Throat: Reports: No symptoms Respiratory: Reports: No symptoms Cardiac: Reports: No symptoms GI: Reports: Abdominal pain, Nausea, Poor appetite, Vomiting : Reports: No symptoms Musculoskeletal: Reports: No symptoms Skin: Reports: No symptoms Neurological: Reports: No symptoms Endocrine: Reports: No symptoms Hematologic/Lymphatic: Reports: No symptoms All Other Systems: Reviewed and Negative Past Medical History - Past Medical History Previously Healthy: Yes Endocrine: Reports: DM 2, Hypothyroid, Dyslipidemia Cardiovascular: Reports: CAD, Hypertension, CHF Respiratory: Reports: COPD Hematological: Reports: None Gastrointestinal: Reports: None Genitourinary: Reports: None Neuro/Psych: Reports: None Musculoskeletal: Reports: Arthritis, Back Pain Cancer: Reports: None Last Menstrual Period: UNKNOWN Other Pertinent Past Medical History: htn thy chol copd diverticulitis, PNA c- section - Surgical History General Surgical History: Reports: Other (Abscess drainage from lower abdomen. ) , Unknown - Family History Family History: Reports: Unknown - Social History Smoking Status: Current some day smoker Hx Substance Use: No Alcohol Screening: None - Immunizations Tetanus Shot up to Date: Yes Physical Exam - Physical Exam Appearance: Ill-appearing, Obese Ill-appearing: Mild Pain Distress: Moderate Eyes: JM, EOMI, Conjunctiva clear ENT: Ears normal, Nose normal, Oropharynx normal Neck: Supple Respiratory: Airway patent, Breath sounds clear, Breath sounds equal, Respirations nonlabored Cardiovascular: RRR GI/: Soft, Tender, Bowel sounds hyperactive Musculoskeletal: Normal strength, ROM intact, No edema, No calf tenderness Skin: Warm, Dry, Normal color Neurological: Sensation intact, Motor intact, Reflexes intact, Cranial nerves intact, Alert, Oriented Psychiatric: Anxious Interpretation - Radiology Interpretation Radiology Interpretation By: Radiologist Radiology Results: Positive (Large gas containing fluid collection in the Lower ventral Abdominal wall. increased in size from last study, Colonic diverticulosis and Diverticulitis distal descending colon .) Re-Evaluation - Re-Evaluation Time of Re-Evaluation: 22:52 Status: Improved Vital Signs Stable: Yes (117/66) Physician Notification - Case Discussed Physician Notified: Dr Mcbride Time of Notification: 12:05 (Admit to Hospitalist at [facility]. ) Critical Care Note - Critical Care Note Total Time (mins): 0 Course - Course Hematology/Chemistry: 08/23/16 21:35 08/23/16 21:35 Orders, Labs, Meds: Lab Review 08/23/16 08/23/16 21:35 22:40 WBC 10.19 RBC 3.37 L Hgb 9.6 L Hct 29.7 L MCV 88.1 MCH 28.5 MCHC 32.3 RDW Coeff of [place] 17.3 H Plt Count 271 Immature Gran % (Auto) 0.3 Neut % (Auto) 74.4 Lymph % (Auto) 12.9 [place] % (Auto) 10.9 H Eos % (Auto) 1.3 Baso % (Auto) 0.2 Immature Gran # (Auto) 0.0 Neut # 7.6 H Lymph # 1.3 [place] # 1.1 Eos # 0.1 Baso # 0.0 Sodium 134 L Potassium 3.2 L Chloride 95 L Carbon Dioxide 28 Anion Gap 14.2 BUN 8 Creatinine 0.83 Estimated GFR (MDRD) 69.00 BUN/Creatinine Ratio 9.63 Glucose 128 H Lactic Acid 7.9 Calcium 8.8 Total Bilirubin 0.98 AST 21 ALT 15 Alkaline Phosphatase 73 Total Protein 6.5 Albumin 2.4 L Globulin 4.1 Albumin/Globulin Ratio 0.59 Amylase 16 L Lipase 9 Orders Category Date Time Status ED IV/MEDIPORT/POWERPORT .ONCE EMERGENCY 08/23/16 21:08 Active AMYLASE Stat LAB 08/23/16 21:35 Completed BLOOD CULTURE Stat LAB 08/23/16 22:44 Results CBC W/ AUTO DIFF Stat LAB 08/23/16 21:35 Completed COMPREHENSIVE METABOLIC PANEL Stat LAB 08/23/16 21:35 Completed LACTIC ACID Stat LAB 08/23/16 22:40 Completed LIPASE Stat LAB 08/23/16 21:35 Completed 0.9 % Sodium Chloride [Saline Flush] MEDS 08/23/16 21:07 Discontinued 1 syr IVF PRN PRN Levofloxacin/D5w [Levaquin] 100 ml MEDS 08/23/16 22:42 Discontinued IV .STK-MED Levofloxacin/D5w [Levaquin] 500 mg MEDS 08/23/16 22:36 Discontinued Premix 100 ml D5w 1 bag IV ONCE Metronidazole/Sodium Chloride [Flagyl 500 mg/100 ml] MEDS 08/24/16 01:11 Discontinued 100 ml IV .STK-MED Metronidazole/Sodium Chloride [Flagyl 500 mg/100 ml] MEDS 08/24/16 01:05 Discontinued 500 mg Premix 100 ml Ns 1 bag IV ONCE Morphine Sulfate [Morphine 2 mg/ml Syringe] MEDS 08/23/16 22:36 Discontinued 2 mg IVP ONCE STA Morphine Sulfate [Morphine 2 mg/ml Syringe] MEDS 08/24/16 01:28 Discontinued 2 mg IVP ONCE STA Ondansetron HCl/Pf [Zofran 4 mg/2 ml] MEDS 08/23/16 22:37 Discontinued 4 mg IVP ONCE STA Sodium Chloride 0.9% [Sodium Chloride] 500 ml MEDS 08/23/16 22:52 Discontinued IV 30 mls/hr CT ABDOMEN/PELVIS WO CONTRAST Stat RADS 08/23/16 21:07 Completed Medications Discontinued Medications Generic Name Dose Route Start Last Admin Trade Name Freq PRN Reason Stop Dose Admin Levofloxacin/Dextrose 500 mg/ 100 mls @ 100 mls/hr 08/23/16 22:36 08/23/16 22 :50 Dextrose IV 08/23/16 23:35 100 mls/hr ONCE STA Administration Sodium Chloride 500 mls @ 30 mls/hr 08/23/16 22:52 08/23/16 23:45 Sodium Chloride IV 08/24/16 15:31 30 mls/hr .[id number] STA Administration Metronidazole 500 mg/ Sodium 100 mls @ 100 mls/hr 08/24/16 01:05 08/24/16 01: 17 Chloride IV 08/24/16 02:04 100 mls/hr ONCE STA Administration Morphine Sulfate 2 mg 08/23/16 22:36 08/23/16 22:59 Morphine 2 Mg/Ml Syringe IVP 08/23/16 22:37 2 mg ONCE STA Administration Morphine Sulfate 2 mg 08/24/16 01:28 08/24/16 02:11 Morphine 2 Mg/Ml Syringe IVP 08/24/16 01:29 2 mg ONCE STA Administration Ondansetron HCl 4 mg 08/23/16 22:37 08/23/16 22:58 Zofran 4 Mg/2 Ml IVP 08/23/16 22:38 4 mg ONCE STA Administration Sodium Chloride 1 syr 08/23/16 21:07 08/24/16 02:14 Saline Flush IVF 1 syr PRN PRN Administration To flush IV Vital Signs: Temp Pulse Resp BP Pulse Ox 08/23/16 21:22 101.4 F H 107 H 24 82/48 L 95 Departure - Departure Time of Disposition: 01:19 Disposition: TSF SHORT-TRM HOSP Discharge Problem: Abdominal pain Diverticulitis Qualifiers: Diverticulitis site: large intestine Diverticulitis bleeding: without bleeding Diverticulitis complication: with abscess Qualifier Code: (K57.20) Diverticulitis of large intestine with perforation and abscess without bleeding Condition: Good Pt referred to PMD for follow-up: Yes Allergies/Adverse Reactions: Allergies No Known Allergies Allergy (Uncoded 08/23/16 21:32) Home Medications: Ambulatory Orders Albuterol Sulfate [Ventolin Hfa] 2 puff IH Q4HR PRN 02/17/16 Levothyroxine Sodium [Synthroid] 75 mcg PO BEDTIME 06/05/16 Docusate Sodium [Colace] 300 mg PO DAILY 08/02/16
[2016-08-23] MEDS ORDERED: LEVAQUIN 100 ML IV ONE (22:42)
[2016-08-23] MEDS ORDERED: SODIUM CHLORIDE 500 ML IV STA (22:52)
[2016-08-24] MEDS ORDERED: FLAGYL 500 MG/100 ML 500 MG in PREMIX 100 ML NS 1 BAG IV STA (01:05)
[2016-08-24] MEDS ORDERED: FLAGYL 500 MG/100 ML 100 ML IV ONE (01:11)
[2016-08-24] MEDS ORDERED: MORPHINE 2 MG/ML SYRINGE IVP STA (01:28)
== END 2016-08-24 05:20 | disposition short-term general hospital (02) ==
LOC: ED 21:06
DX: K57.20 Diverticulitis of large intestine with perforation and abscess without bleeding (principal); E11.9 Type 2 diabetes mellitus without complications; I10 Essential (primary) hypertension; E03.9 Hypothyroidism, unspecified; E78.5 Hyperlipidemia, unspecified; I25.10 Atherosclerotic heart disease of native coronary artery without angina pectoris; I50.9 Heart failure, unspecified; J44.9 Chronic obstructive pulmonary disease, unspecified; F17.210 Nicotine dependence, cigarettes, uncomplicated; Z79.899 Other long term (current) drug therapy
CPT/HCPCS: 36415; 80053; 82150; 83605; 83690; 85025; 87040; 96365; 96367; 96375; 96376; 99285

== ENCOUNTER 2016-08-24 05:28 | Outpatient (CLI) ==
[2012-10-30 01:27] VITALS: TEMP 98.6
[2016-08-23 21:32] VITALS: BMI 32.8
== END 2016-08-24 05:29 ==
LOC: AMBL 05:28
PROVIDERS: ATTEND Internal Medicine Geriatric Medicine
DX: R10.30 Lower abdominal pain, unspecified (principal)

== ENCOUNTER 2016-09-14 17:04 | Outpatient (CLI) | payer OTHER ==
[2012-10-30 01:27] VITALS: TEMP 98.6
== END 2016-09-14 17:05 ==
LOC: AMBL 17:04
PROVIDERS: ATTEND Emergency Medicine
DX: Z48.03 Encounter for change or removal of drains (principal)

== ENCOUNTER 2016-09-16 10:54 | Outpatient (CLI) | payer OTHER ==
[2012-10-30 01:27] VITALS: TEMP 98.6
--- NOTE | 2016-09-16 12:08 | CT ---
EXAM: CT Abdomen with contrast. CT Pelvis with contrast. HISTORY: Abscess strain near the bladder. Possible change in position. COMPARISON: 08/23/2016. TECHNIQUE: Multiple axial images of the abdomen and pelvis were obtained following intravenous admi nistration of 75 mL of Omnipaque 350, low osmolar. Images were reformatted in the coronal plane. FINDINGS: Bibasilar scarring and calcified granulomatous changes noted. Degenerative changes prese nt in the spine. The liver, gallbladder, pancreas, spleen, adrenal glands, and kidneys without acute abnormality. Ri ght renal cyst noted in the lower pole cortex. There is moderate wall thickening of the sigmoid colon with adjacent inflammation which occurs in th e setting of diverticulosis. There is no evidence for bowel obstruction. There is evidence for per foration. Uterus demonstrates normal contour. Urinary bladder contains a 2 x 1.4 x 1.1 cm fluid de nsity collection in the superior wall best seen on axial image 73 and sagittal image 71. Circumscri bed fluid collection along the superficial aspect of the the rectus sheath in the midline of the pel vis measures approximately 7 x 2 cm on axial image 68 with some lobular extension into the more supe rficial subcutaneous tissues. Percutaneous pigtail drainage catheter is coiled within the superfici al subcutaneous tissues of the midline of the upper pelvis which appears to be external to the fluid collection. IMPRESSION: 1. Percutaneous drainage catheter appears to be superficial to the large lobular fluid collection/a bscess within the anterior pelvis. Collection has decreased in size since the prior study. 2. Acute sigmoid diverticulitis. 3. Fluid collection within the superior bladder wall likely represents intramural abscess.
== END 2016-09-16 10:55 | disposition home or self-care (01) ==
LOC: RAD 10:54
PROVIDERS: ATTEND Family Medicine
DX: Z46.89 Encounter for fitting and adjustment of other specified devices (principal); K65.1 Peritoneal abscess

== ENCOUNTER 2016-10-27 11:59 | Outpatient (CLI) ==
[2012-10-30 01:27] VITALS: TEMP 98.6
[2016-10-27 12:49] LABS: BASOPHILS # (AUTO) 0.1 K/uL (0-0.2); BASOPHILS % (AUTO) 0.6 % (0.0-3.0); EOSINOPHILS # (AUTO) 0.4 K/ul (0.0-0.7); EOSINOPHILS % (AUTO) 3.7 % (0.0-7.0); HEMATOCRIT 37.4 % (37.0-47.0); HEMOGLOBIN 12.2 g/dl (12.0-16.0); IMMATURE GRANULOCYTE % (AUTO) 0.6 % (0.0-5.0); LYMPHOCYTES # (AUTO) 2.4 K/uL (0.60-3.4); LYMPHOCYTES % (AUTO) 23.1 (10.0-50.0); MEAN CORPUSCULAR HEMOGLOBIN 29.2 pg (27.0-31.0); MEAN CORPUSCULAR HGB CONC 32.6 (31.8-35.4); MEAN CORPUSCULAR VOLUME 89.5 fl (81.0-99.0); MONOCYTES # (AUTO) 0.5 K/uL (0.4-2.0); MONOCYTES % (AUTO) 4.7 (0-10); NEUTROPHILS # (AUTO) 7.1 K/ul (2.0-6.9); NEUTROPHILS % (AUTO) 67.3; PLATELET COUNT 300 10^3/uL (140-440); RED BLOOD COUNT 4.18 10^6/ul (4.20-5.40); WHITE BLOOD COUNT 10.54 K/ul (4.6-10.2)
[2016-10-27 13:06] LABS: ALBUMIN 3.4 g/dL (3.4-5.0); ALBUMIN/GLOBULIN RATIO 0.85; ANION GAP 16.1; BILIRUBIN,TOTAL 0.39 mg/dL (0.00-1.20); BUN/CREATININE RATIO 8.33; CALCIUM 9.7 mg/dL (8.2-10.2); CREATININE 0.96 mg/dL (0.60-1.30); POTASSIUM 3.1 mmol/L (3.5-5.10); TOTAL PROTEIN 7.4 g/dL (5.8-8.1)
== END 2016-10-27 12:00 | disposition home or self-care (01) ==
LOC: LAB 11:59
PROVIDERS: ATTEND Emergency Medicine
DX: R91.1 Solitary pulmonary nodule (principal); J44.9 Chronic obstructive pulmonary disease, unspecified; E78.5 Hyperlipidemia, unspecified; I10 Essential (primary) hypertension
CPT/HCPCS: 36415; 80053; 85025

== ENCOUNTER 2017-01-09 21:43 | Emergency (ER) ==
[2017-01-09 21:58] VITALS: BP 113/70; TEMP 99.7; BMI 35.4
[2017-01-09] MEDS ORDERED: SODIUM CHLORIDE 1,000 ML IV STA (22:08)
[2017-01-09 22:24] LABS: BASOPHILS # (AUTO) 0.1 K/uL (0-0.2); BASOPHILS % (AUTO) 0.4 % (0.0-3.0); EOSINOPHILS # (AUTO) 0.6 K/ul (0.0-0.7); EOSINOPHILS % (AUTO) 4.4 % (0.0-7.0); HEMATOCRIT 31.4 % (37.0-47.0); HEMOGLOBIN 10.3 g/dl (12.0-16.0); IMMATURE GRANULOCYTE % (AUTO) 0.4 % (0.0-5.0); LYMPHOCYTES # (AUTO) 2.6 K/uL (0.60-3.4); MEAN CORPUSCULAR HEMOGLOBIN 29.1 pg (27.0-31.0); MEAN CORPUSCULAR HGB CONC 32.8 (31.8-35.4); MEAN CORPUSCULAR VOLUME 88.7 fl (81.0-99.0); MONOCYTES # (AUTO) 0.9 K/uL (0.4-2.0); MONOCYTES % (AUTO) 6.3 (0-10); NEUTROPHILS # (AUTO) 9.4 K/ul (2.0-6.9); NEUTROPHILS % (AUTO) 69.5; PLATELET COUNT 331 10^3/uL (140-440); RED BLOOD COUNT 3.54 10^6/ul (4.20-5.40); WHITE BLOOD COUNT 13.49 K/ul (4.6-10.2)
[2017-01-09 22:44] LABS: ALBUMIN 2.8 g/dL (3.4-5.0); ALBUMIN/GLOBULIN RATIO 0.6; ANION GAP 17.3; BILIRUBIN,TOTAL 0.6 mg/dL (0.00-1.20); BUN/CREATININE RATIO 7.6; CALCIUM 9.5 mg/dL (8.2-10.2); CREATININE 0.92 mg/dL (0.60-1.30); POTASSIUM 3.3 mmol/L (3.5-5.10); TOTAL PROTEIN 7.5 g/dL (5.8-8.1)
[2017-01-09 23:01] LABS: ERYTHROCYTE SEDIMENTATION RATE 100 mm/hr (0-20); ESR INTERNAL QC INTERNAL QC VALID
--- NOTE | 2017-01-09 23:48 | ED.PDOC ---
General ED Provider: Dr. JULIETA ZAIDI-ER Chief Complaint: Non-specific Complaint Stated Complaint: bk got drainage from my wound in my belly Time Seen by Physician: 21:50 Mode of Arrival: Wheelchair Information Source: Patient Exam Limitations: No limitations [facility] Nursing and Triage Documentation Reviewed and Agree: Yes Skin Complaint Exam - Skin/Soft Tissue Complaint/Exam Onset/Duration: 4 days Symptoms Are: Still present Timing: Constant Initial Severity: Mild Current Severity: Moderate Location: lower abdomen Character: Reports: Redness, Swelling, Raised, Painful Aggravating: Reports: Touch Alleviating: Reports: None Associated Signs and Symptoms: Reports: Drainage, Tenderness. Denies: Fever, Chills, Itching, Bruising, Red streaks, Joint swelling Related Surgical History: Reports: None Recent Exposure to Others w/Similar Symptoms: No Skin Findings: Present: Erythema Joint Tenderness Present: No Differential Diagnoses: Abscess, Infection Review of Systems - Review Of Systems Constitutional: Reports: No symptoms Eyes: Reports: No symptoms Ears, Nose, Mouth, Throat: Reports: No symptoms Respiratory: Reports: No symptoms Cardiac: Reports: No symptoms GI: Reports: No symptoms : Reports: No symptoms Musculoskeletal: Reports: No symptoms Skin: Reports: No symptoms Neurological: Reports: No symptoms Endocrine: Reports: No symptoms Hematologic/Lymphatic: Reports: No symptoms All Other Systems: Reviewed and Negative Past Medical History - Past Medical History Previously Healthy: Yes Endocrine: Reports: DM 2, Hypothyroid, Dyslipidemia Cardiovascular: Reports: CAD, Hypertension, CHF Respiratory: Reports: COPD Hematological: Reports: None Gastrointestinal: Reports: None Genitourinary: Reports: None Neuro/Psych: Reports: None Musculoskeletal: Reports: Arthritis, Back Pain Cancer: Reports: None Last Menstrual Period: UNKNOWN Other Pertinent Past Medical History: htn thy chol copd diverticulitis, PNA c- section - Surgical History General Surgical History: Reports: Other, Unknown - Family History Family History: Reports: Unknown - Social History Smoking Status: Former smoker Hx Substance Use: No Alcohol Screening: None Lives: With family - Immunizations Tetanus Shot up to Date: Yes Physical Exam - Physical Exam Appearance: Well-appearing, No pain distress, Well-nourished Pain Distress: Mild Eyes: JM, EOMI, Conjunctiva clear ENT: Ears normal, Nose normal, Oropharynx normal Neck: Supple Respiratory: Airway patent, Breath sounds clear, Breath sounds equal, Respirations nonlabored Cardiovascular: RRR, Pulses normal, No rub, No murmur GI/: Soft, No masses, Bowel sounds normal, No Organomegaly, Tender Musculoskeletal: Normal strength, ROM intact, No edema, No calf tenderness Skin: Warm Neurological: Sensation intact Psychiatric: Affect appropriate, Mood appropriate Interpretation - Radiology Interpretation Radiology Interpretation By: Radiologist Radiology Results: Positive Exam Interpreted: CT Scan Physician Notification - Case Discussed Physician Notified: [facility]--dr jes ramirez accepted in transfer Critical Care Note - Critical Care Note Total Time (mins): 0 Course - Course Hematology/Chemistry: 01/09/17 22:20 01/09/17 22:20 Orders, Labs, Meds: Lab Review 01/09/17 01/09/17 22:06 22:20 WBC 13.49 H RBC 3.54 L Hgb 10.3 L Hct 31.4 L MCV 88.7 MCH 29.1 MCHC 32.8 RDW Coeff of [place] 15.0 H Plt Count 331 Immature Gran % (Auto) 0.4 Neut % (Auto) 69.5 Lymph % (Auto) 19.0 [place] % (Auto) 6.3 Eos % (Auto) 4.4 Baso % (Auto) 0.4 Immature Gran # (Auto) 0.1 Neut # 9.4 H Lymph # 2.6 [place] # 0.9 Eos # 0.6 Baso # 0.1 ESR 100 H Puncture Site Rb O2 Saturation 99.0 ABG pH 7.460 H ABG pCO2 46.1 H ABG pO2 125.0 H ABG HCO3 32.8 H ABG Total CO2 34 H ABG Base Excess 9 H Cm Test + O2 Delivery Device Nc Oxygen Liter Flow 3.00 FiO2 % 32.0 Sodium 139 Potassium 3.3 L Chloride 97 L Carbon Dioxide 28 Anion Gap 17.3 BUN 7 Creatinine 0.92 Estimated GFR (MDRD) 61.00 BUN/Creatinine Ratio 7.60 Glucose 103 Calcium 9.5 Total Bilirubin 0.60 AST 19 ALT 19 Alkaline Phosphatase 94 Total Protein 7.5 Albumin 2.8 L Globulin 4.7 Albumin/Globulin Ratio 0.60 Amylase 18 L Lipase 13 Orders Category Date Time Status ABG DRAW REQUEST Stat CARDIO 01/09/17 22:06 Completed EKG-(ED ONLY) Stat CARDIO 01/09/17 22:06 Completed NPO REMINDER: IMAGING ONCE CARE 01/09/17 22:08 Completed TRANSFER TO OUTSIDE FACILITY .TO [facility] CARE 01/10/17 00:26 Active [facility] ([place], [place]) WRITE TRANSFER/SBAR NOTE ONCE CARE 01/10/17 00:26 Completed DISCHARGE ASSESSMENT ONCE DISCHARGE 01/10/17 00:26 Completed WRITE DISCHARGE NOTE ONCE DISCHARGE 01/10/17 00:26 Completed IV [ED IV/MEDIPORT/POWERPORT] .ONCE EMERGENCY 01/09/17 22:08 Active ABG Stat LAB 01/09/17 22:06 Completed AMYLASE Stat LAB 01/09/17 22:20 Completed BLOOD CULTURE Stat LAB 01/09/17 22:20 Received CBC W/ AUTO DIFF Stat LAB 01/09/17 22:20 Completed COMPREHENSIVE METABOLIC PANEL Stat LAB 01/09/17 22:20 Completed CRP [C-REACTIVE PROTEIN] Stat LAB 01/09/17 22:20 Received ESR Stat LAB 01/09/17 22:20 Completed LIPASE Stat LAB 01/09/17 22:20 Completed URINALYSIS C & S IF INDICATED Stat LAB 01/09/17 22:06 Uncollected 0.9 % Sodium Chloride [Saline Flush] MEDS 01/09/17 22:08 Ordered 1 syr IVF PRN PRN Sodium Chloride 0.9% [Sodium Chloride] 1,000 ml MEDS 01/09/17 22:08 Active IV 30 mls/hr CT ABDOMEN/PELVIS W CONTRAST Stat RADS 01/09/17 22:07 Completed Medications Generic Name Dose Route Start Last Admin Trade Name Freq PRN Reason Stop Dose Admin Sodium Chloride 1,000 mls @ 30 mls/hr 01/09/17 22:08 01/09/17 22:38 Sodium Chloride IV 01/11/17 07:27 30 mls/hr .[id number] STA Administration Sodium Chloride 1 syr 01/09/17 22:08 01/09/17 22:38 Saline Flush IVF 1 syr PRN PRN Administration To flush IV so after achieving an accepting physician(yogesh has seen before) we exhausted attempts to provide transfer to [facility] including helicopter, fixed wing aircraft- -we even notified the real estate administrator we needed transfer and he okd another crew coming in to take mr dang to [place] however we were notified they "couldnt find anyone to come in"--at this time we are still awaiting ems transfer--5:am" Vital Signs: Temp Pulse Resp BP Pulse Ox 01/09/17 21:46 99.7 F H 92 H 24 113/70 95 Departure - Departure Time of Disposition: 00:25 Disposition: TSF SHORT-TRM HOSP Discharge Problem: Diverticulitis of intestine with abscess Instructions: Abscess (ED) Condition: Fair Pt referred to PMD for follow-up: No Allergies/Adverse Reactions: Allergies No Known Allergies Allergy (Uncoded 01/09/17 21:59) Home Medications: Ambulatory Orders Albuterol Sulfate [Ventolin Hfa] 2 puff IH Q4HR PRN 02/17/16 Docusate Sodium [Colace] 300 mg PO DAILY 08/02/16 Levothyroxine Sodium 75 mcg PO DAILY 10/26/16 Linaclotide [Linzess] 145 mcg PO DAILY 01/09/17 Transfer Form Completed: Yes Disposition Discussed With: Patient
--- NOTE | 2017-01-09 23:56 | CT ---
EXAM: CT scan abdomen pelvis with contrast HISTORY: Possible wound infection COMPARISON: CT scan abdomen pelvis 09/16/2016 FINDINGS: Contiguous axial images were obtained through the abdomen pelvis following uneventful adm inistration intravenous contrast utilizing 3-mm collimation.. Sagittal and coronal reconstructions were imaged and reviewed.. Benign granulomatous changes are noted at the right lung base. The gallb ladder is fluid filled without cholelithiasis. There are benign granulomatous changes in the spleen with several small hypoattenuating lesions which have a benign appearance and are stable. Atheroscl erotic changes are seen involving the aorta without aneurysm. The kidneys excrete contrast in a norm al fashion bilaterally.. There is diverticulitis in the midsigmoid colon without abscess or free flu id.. A previously noted circumscribed fluid collection along the superficial aspect of the midline rectus sheath is not identified. Redemonstrated is a more superficial collection measuring 3.6 x 5.6 cm which tracks to the skin surface in the midline and also to the right of midline. IMPRESSION: Diverticulitis mid sigmoid colon. No free fluid. Resolution of previously noted fluid collection along the rectus sheath. Redemonstrated is a more ji perficial collection which tracks to the skin surface at two separate locations.
[2017-01-10 00:18] LABS: ABG BASE EXCESS 9 (-2.0-2.0); ABG HCO3 32.8 (22.0-26.0); ABG PCO2 46.1 mmHg (35-45); ABG TCO2 34 (22.0-28.0)
[2017-01-10 06:55] LABS: ADD URINE MICROSCOPIC YES; BILIRUBIN,URINE Negative (NEGATIVE); KETONES,URINE Negative (NEGATIVE); LEUKOCYTE ESTERASE ,URINE Negative (NEGATIVE); NITRITE,URINE Negative (NEGATIVE); PROTEIN,URINE Negative (NEGATIVE); URINE, BLOOD Trace-intact (NEGATIVE)
[2017-01-10 06:56] LABS: BACTERIA,URINE 1+ (NOT PRESENT)
[2017-01-10] MEDS ORDERED: ROCEPHIN 2 GM in SODIUM CHLORIDE 100 ML IV STA (07:43)
[2017-01-10] MEDS ORDERED: ROCEPHIN ONE (08:39)
== END 2017-01-10 08:10 | disposition short-term general hospital (02) ==
LOC: ED 21:43
DX: K57.80 Diverticulitis of intestine, part unspecified, with perforation and abscess without bleeding (principal); E11.9 Type 2 diabetes mellitus without complications; E78.5 Hyperlipidemia, unspecified; E03.9 Hypothyroidism, unspecified; I10 Essential (primary) hypertension; I25.10 Atherosclerotic heart disease of native coronary artery without angina pectoris; I50.9 Heart failure, unspecified; J44.9 Chronic obstructive pulmonary disease, unspecified; M19.90 Unspecified osteoarthritis, unspecified site; Z79.899 Other long term (current) drug therapy
CPT/HCPCS: 36415; 80053; 81001; 82150; 82803; 83690; 85025; 85651; 86140; 87040; 87086; 87186; 93005; 93010; 96365; 99285

== ENCOUNTER 2017-01-10 08:13 | Outpatient (CLI) ==
[2012-10-30 01:27] VITALS: TEMP 98.6
[2017-01-09 21:58] VITALS: BMI 35.4
== END 2017-01-10 08:14 | disposition home or self-care (01) ==
LOC: AMBL 08:13
PROVIDERS: ATTEND Internal Medicine
DX: L02.211 Cutaneous abscess of abdominal wall (principal)

== ENCOUNTER 2017-02-07 10:53 | Outpatient (CLI) | payer OTHER ==
[2012-10-30 01:27] VITALS: TEMP 98.6
--- NOTE | 2017-02-07 11:59 | CT ---
EXAM: CT ABDOMEN AND PELVIS HISTORY: Cutaneous abscess of the abdominal wall TECHNIQUE: CT abdomen and pelvis without intravenous contrast. Images were reconstructed using 5 mm section thickness. Reformations were prepared. COMPARISON: 01/09/2017 FINDINGS: Exam demonstrates a focal region of swelling of the mid infraumbilical rectus sheath measuring 2.1 x 2.3 x 2.5 cm. There is a connection between this apparent complex fluid collection and a nearby mid subcutaneous complex fluid collection which measures 3.8 x 1.7 x 3.4 cm. Both of these collections a ppeared to communicate with the cutaneous surface through a single sinuses channel measuring about 0. 82 cm in thickness. No internal gas is identified within the collections. When compared to the prio r exam, the overall appearance of this condition is not significantly improved or worsened. The erika pheral soft tissues were otherwise unremarkable. No ventral hernia is seen. Within limits of this unenhanced exam, no focal hepatic lesions were seen. A few splenic calcificati ons consistent with old granulomatous disease are present. Gallbladder, pancreas and adrenal glands appear normal. There is a small 1.7 cm cystic mass of the inferior right kidney which is probably a cyst. Kidneys and ureters were otherwise unremarkable. Mild atherosclerotic disease. There is no g astric distension. Normal appendix and general bowel gas pattern. There is diffuse colonic diverticu losis becoming more moderate at the distal descending and sigmoid levels. There is fat stranding yosvany und the sigmoid level diverticula. Uterus and urinary bladder are within normal limits. There is no ascites or pneumoperitoneum. Lung bases reveal a few small areas of linear scarring or atelectasis. IMPRESSION: 1. Stable rectus sheath and subcutaneous fluid collections with a sinus to the cutaneous surface. T hese may represent abscesses. 2. Diffuse colonic diverticulosis, moderate at the descending and sigmoid levels. There may be early diverticulitis at the sigmoid level.
== END 2017-02-07 10:54 | disposition home or self-care (01) ==
LOC: RAD 10:53
PROVIDERS: ATTEND Emergency Medicine
DX: L02.211 Cutaneous abscess of abdominal wall (principal)

== ENCOUNTER 2017-02-09 13:58 | Outpatient (CLI) ==
[2012-10-30 01:27] VITALS: TEMP 98.6
== END 2017-02-09 13:59 | disposition home or self-care (01) ==
LOC: LAB 13:58
PROVIDERS: ATTEND Emergency Medicine
DX: L02.211 Cutaneous abscess of abdominal wall (principal)
CPT/HCPCS: 87070; 87186

== ENCOUNTER 2017-05-09 17:21 | Inpatient (IN) ==
[2017-05-09] MEDS ORDERED: DUONEB NEB STA (17:45)
--- NOTE | 2017-05-09 18:51 | ED.PDOC ---
General ED Provider: Dr. MARY JANE PAEZ Chief Complaint: Respiratory Complaint Stated Complaint: respiratory Time Seen by Physician: 17:30 Mode of Arrival: Ambulance Information Source: Patient Exam Limitations: No limitations Primary Care Provider: NAVJOT SCHMIDTRuthann Nursing and Triage Documentation Reviewed and Agree: Yes Reviewed sepsis parameters & appropriate labs ordered?: Yes System Inflammatory Response Syndrome: Not Applicable Sepsis Protocol: For patient's 13 years and over: Temp is 96.8 and below OR 101 and greater Pulse >90 BPM Resp >20/minute Acutely Altered Mental Status Are patient's symptoms suggestive of a new infection, such as: -Pneumonia -Skin, Soft Tissue -Endocarditis -UTI -Bone, Joint Infection -Implantable Device -Acute Abdominal Infection -Wound Infection -Meningitis -Blood Stream Catheter Infection -Unknown System Inflammatory Response Syndrome: Not Applicable Respiratory Complaint Exam - Respiratory Complaint/Exam Onset/Duration: 1day Symptoms Are: Still present Timing: Constant Initial Severity: Moderate Current Severity: Moderate Location: Chest Character: Reports: Non-productive cough Aggravating: Reports: None Alleviating: Reports: None Associated Signs and Symptoms: Denies: Rapid breathing, Dyspnea, Fever, Chills, Chest pain, Pleuritic chest pain, Wheezing, Hemoptysis, Dizziness, Calf pain, Calf swelling, Edema, URI, Nasal congestion, Hoarseness, Sinus discomfort, Vomiting, Sore throat, Weight loss, Decreased oral intake, Increased thirst, Increased appetite, Increased urination Related History: Reports: Similar episode History of Healthcare-Acquired Pneumonia: No Related Surgical History: Reports: None Review of Systems - Review Of Systems Constitutional: Reports: No symptoms Eyes: Reports: No symptoms Ears, Nose, Mouth, Throat: Reports: No symptoms Respiratory: Reports: Cough Cardiac: Reports: No symptoms GI: Reports: No symptoms : Reports: No symptoms Musculoskeletal: Reports: No symptoms Skin: Reports: No symptoms Neurological: Reports: No symptoms Endocrine: Reports: No symptoms Hematologic/Lymphatic: Reports: No symptoms All Other Systems: Reviewed and Negative Past Medical History - Past Medical History Previously Healthy: Yes Endocrine: Reports: DM 2, Hypothyroid, Dyslipidemia Cardiovascular: Reports: CAD, Hypertension, CHF Respiratory: Reports: COPD Hematological: Reports: None Gastrointestinal: Reports: None Genitourinary: Reports: None Neuro/Psych: Reports: None Musculoskeletal: Reports: Arthritis, Back Pain Cancer: Reports: None Last Menstrual Period: n/a Other Pertinent Past Medical History: htn thy chol copd diverticulitis, PNA c- section - Surgical History General Surgical History: Reports: Other, Unknown - Family History Family History: Reports: Unknown - Social History Smoking Status: Former smoker Hx Substance Use: No Alcohol Screening: None Physical Exam - Physical Exam Appearance: Ill-appearing Ill-appearing: Moderate Pain Distress: Moderate Eyes: JM, EOMI, Conjunctiva clear ENT: Ears normal, Nose normal, Oropharynx normal Respiratory: Rhonchi, Wheezes Cardiovascular: RRR, Pulses normal, No rub, No murmur GI/: Soft, Nontender, No masses, Bowel sounds normal, No Organomegaly Musculoskeletal: Normal strength, ROM intact, No edema, No calf tenderness Skin: Warm, Dry, Normal color Neurological: Sensation intact, Motor intact, Reflexes intact, Cranial nerves intact, Alert, Oriented Psychiatric: Affect appropriate, Mood appropriate Critical Care Note - Critical Care Note Total Time (mins): 0 Course - Course Hematology/Chemistry: 05/09/17 18:15 05/09/17 18:15 Orders, Labs, Meds: Lab Review 05/09/17 05/09/17 05/09/17 17:43 18:01 18:15 WBC 7.36 RBC 3.47 L Hgb 10.7 L Hct 32.2 L MCV 92.8 MCH 30.8 MCHC 33.2 RDW Coeff of [place] 15.4 H Plt Count 190 Immature Gran % (Auto) 0.3 Neut % (Auto) 82.1 Lymph % (Auto) 8.6 L [place] % (Auto) 8.6 Eos % (Auto) 0.0 Baso % (Auto) 0.4 Immature Gran # (Auto) 0.0 Neut # 6.1 Lymph # 0.6 Newton # 0.6 Eos # 0.0 Baso # 0.0 Puncture Site R radial O2 Saturation 98.0 ABG pH 7.515 H* ABG pCO2 41.9 ABG pO2 91.0 ABG HCO3 33.8 H ABG Total CO2 35 H ABG Base Excess 11 H Cm Test + O2 Delivery Device nasal cannula Oxygen Liter Flow 3.00 Sodium Potassium Chloride Carbon Dioxide Anion Gap BUN Creatinine Estimated GFR (MDRD) BUN/Creatinine Ratio Glucose Lactic Acid Calcium Total Bilirubin AST ALT Alkaline Phosphatase Total Creatine Kinase CK-MB (CK-2) CK-MB (CK-2) % Troponin I Total Protein Albumin Globulin Albumin/Globulin Ratio Procalcitonin Influenza A (Rapid) Positive by naat H Influenza B (Rapid) Negative by naat 05/09/17 05/09/17 05/09/17 18:15 18:15 18:15 WBC RBC Hgb Hct MCV MCH MCHC RDW Coeff of [place] Plt Count Immature Gran % (Auto) Neut % (Auto) Lymph % (Auto) Newton % (Auto) Eos % (Auto) Baso % (Auto) Immature Gran # (Auto) Neut # Lymph # [place] # Eos # Baso # Puncture Site O2 Saturation ABG pH ABG pCO2 ABG pO2 ABG HCO3 ABG Total CO2 ABG Base Excess Cm Test O2 Delivery Device Oxygen Liter Flow Sodium 134 L Potassium 3.5 Chloride 96 L Carbon Dioxide 30 Anion Gap 11.5 BUN 10 Creatinine 0.82 Estimated GFR (MDRD) 69.00 BUN/Creatinine Ratio 12.19 Glucose 100 Lactic Acid 6.2 Calcium 8.8 Total Bilirubin 0.6 AST 18 ALT 6 L Alkaline Phosphatase 70 Total Creatine Kinase 330 CK-MB (CK-2) 3.4 CK-MB (CK-2) % 1.98180 Troponin I 0.0130 Total Protein 6.7 Albumin 2.9 L Globulin 3.8 Albumin/Globulin Ratio 0.76 Procalcitonin 0.09 Influenza A (Rapid) Influenza B (Rapid) Orders Category Date Time Status ADMIT PATIENT INPATIENT .TO [facility] (MONITORED BED) ADMISSION 05/09/17 18: 36 Active ABG DRAW REQUEST Stat CARDIO 05/09/17 17:43 Completed EKG-(ED ONLY) Stat CARDIO 05/09/17 17:42 Completed EKG-(IP & OP ONLY) DAILY CARDIO 05/10/17 06:00 Completed EKG-(IP & OP ONLY) DAILY CARDIO 05/11/17 06:00 Ordered EKG-(IP & OP ONLY) DAILY CARDIO 05/12/17 06:00 Ordered NEBULIZER TREATMENT Routine CARDIO 05/09/17 18:39 Active NEBULIZER TREATMENT Stat CARDIO 05/09/17 17:45 Completed TELEMETRY MONITORING TELE CARE 05/09/17 18:37 Active VITAL SIGNS Q8HR CARE 05/09/17 18:36 Active REGULAR DIET DIETARY 05/09/17 Dinner Ordered ABG Stat LAB 05/09/17 17:43 Completed BLOOD CULTURE (ED ONLY) Stat LAB 05/09/17 Ordered CBC W/ AUTO DIFF DAILY@0600 LAB 05/11/17 06:00 Ordered CBC W/ AUTO DIFF Stat LAB 05/09/17 18:15 Completed COMPREHENSIVE METABOLIC PANEL DAILY@0600 LAB 05/11/17 06:00 Ordered COMPREHENSIVE METABOLIC PANEL Stat LAB 05/09/17 18:15 Completed CREATINE KINASE Q8H LAB 05/10/17 01:00 Completed CREATINE KINASE Stat LAB 05/09/17 18:15 Completed LACTIC ACID Stat LAB 05/09/17 18:15 Completed MOLECULAR FLU A/B Stat LAB 05/09/17 18:01 Completed MOLECULAR GROUP A STREP Stat LAB 05/09/17 18:01 Completed PROCALCITONIN Stat LAB 05/09/17 18:15 Completed TROPONIN I Q8H LAB 05/10/17 01:00 Completed TROPONIN I Stat LAB 05/09/17 18:15 Completed Ceftriaxone Sodium [Rocephin] MEDS 05/09/17 20:01 Discontinued 1 gm .ROUTE .STK-MED ONE Ceftriaxone Sodium [Rocephin] 1 gm MEDS 05/09/17 19:00 Active 0.9 % Sodium Chloride [Sodium Chloride] 50 ml IV DAILY Docusate Sodium [Colace] MEDS 05/10/17 09:00 Discontinued 300 mg PO DAILY Enoxaparin Sodium [Lovenox] MEDS 05/10/17 09:00 Active 40 mg SUBCUT DAILY Hydrochlorothiazide MEDS 05/09/17 21:00 Active 25 mg PO BEDTIME Ipratropium/Albuterol Neb [Duoneb] MEDS 05/09/17 17:45 Discontinued 1 vial NEB ONCE STA Ipratropium/Albuterol Neb [Duoneb] MEDS 05/10/17 00:00 Active 1 vial NEB RTQ6H Levothyroxine Sodium [Synthroid] MEDS 05/10/17 09:00 Active 75 mcg PO QDAC Methylprednisolone Sod Succ/Pf [Solu-Medrol 40 mg] MEDS 05/09/17 21:00 Active 40 mg IVP Q12HR Potassium Chloride [Potassium Chloride] MEDS 05/09/17 21:00 Discontinued 10 meq PO BID Sodium Chloride 0.9% [Sodium Chloride] 1,000 ml MEDS 05/09/17 19:00 Active IV 75 mls/hr CT CHEST W/O CONTRAST Stat RADS 05/09/17 19:42 Completed Medications Generic Name Dose Route Start Last Admin Trade Name Freq PRN Reason Stop Dose Admin Albuterol/Ipratropium 1 vial 05/10/17 00:00 05/10/17 11:21 Dukenia BOYER 1 vial RTQ6H IBIS Administration Docusate Sodium 200 mg 05/10/17 09:24 05/10/17 09:27 Colace PO 200 mg BID IBIS Administration Enoxaparin Sodium 40 mg 05/10/17 09:00 05/10/17 09:23 Lovenox SUBCUT 40 mg DAILY IBIS Administration Hydrochlorothiazide 25 mg 05/09/17 21:00 05/09/17 21:50 Hydrochlorothiazide PO 25 mg BEDTIME IBIS Administration Ceftriaxone Sodium 1 gm/ 50 mls @ 75 mls/hr 05/09/17 19:00 05/10/17 09:22 Sodium Chloride IV 75 mls/hr DAILY IBIS Administration Sodium Chloride 1,000 mls @ 75 mls/hr 05/09/17 19:00 05/10/17 09:22 Sodium Chloride IV 75 mls/hr .[id number] IBIS Administration Levothyroxine Sodium 75 mcg 05/10/17 09:00 05/10/17 09:22 Synthroid PO 75 mcg QDAC IBIS Administration Methylprednisolone Sodium Succinate 40 mg 05/09/17 21:00 05/10/17 09:22 Solu-Medrol 40 Mg IVP 40 mg Q12HR IBIS Administration Oseltamivir Phosphate 75 mg 05/10/17 11:00 05/10/17 12:47 Tamiflu PO 05/14/17 22:59 75 mg Q12HR IBIS Administration Potassium Chloride 10 meq 05/10/17 09:00 05/10/17 09:22 Micro-K Cap PO 10 meq BID IBIS Administration Discontinued Medications Generic Name Dose Route Start Last Admin Trade Name Freq PRN Reason Stop Dose Admin Albuterol/Ipratropium 1 vial 05/09/17 17:45 05/09/17 18:15 Rula BOYER 05/09/17 17:46 1 vial ONCE STA Administration Docusate Sodium 300 mg 05/10/17 09:00 05/10/17 11:32 Colace PO Not Given DAILY IBIS Non-Formulary Medication 10 meq 05/09/17 21:00 05/09/17 21:51 Potassium Chloride [Potassium Chloride] PO 10 meq BID IBIS Administration Vital Signs: Temp Pulse Resp BP Pulse Ox 05/09/17 17:23 99.5 F 110 H 24 0/0 L 95 Departure - Departure Time of Disposition: 18:51 Disposition: ADMITTED INPATIENT Discharge Problem: COPD (chronic obstructive pulmonary disease) Condition: Good Pt referred to PMD for follow-up: Yes Allergies/Adverse Reactions: Allergies No Known Allergies Allergy (Uncoded 05/09/17 17:28) Home Medications: Ambulatory Orders Albuterol Sulfate [Ventolin Hfa] 2 puff IH Q4HR PRN 02/17/16 Levothyroxine Sodium 75 mcg PO DAILY 10/26/16 Linaclotide [Linzess] 145 mcg PO DAILY 01/09/17 Docusate Sodium [Colace] 200 mg PO BID 05/10/17 Disposition Discussed With: Patient
[2017-05-09] MEDS ORDERED: ROCEPHIN ONE (20:01)
[2017-05-09] MEDS: ROCEPHIN 1 GM in SODIUM CHLORIDE 50 ML IV SCH (20:12)
[2017-05-09] MEDS: SODIUM CHLORIDE 1,000 ML IV SCH (20:13)
--- NOTE | 2017-05-09 20:27 | CT ---
EXAM: CT of the chest without contrast. HISTORY: Shortness of breath. Cough. COMPARISON: 07/25/2016 TECHNIQUE: Continous axial as a 5 mm intervals obtained from the lung apices to the upper abdomen. Study was performed without IV contrast. Sagittal and coronal reformats were reviewed. FINDINGS: The lung windows show no lobar consolidation or effusion. There is thickening of the eder r fissure on the right. No definite pleural effusion. The pulmonary interstitium is normal. The ai rways are widely patent. The heart size is within normal limits. There are heavy coronary calcifica tions. There is no significant mediastinal or hilar adenopathy. There are a few calcified mediastin al lymph nodes. Limited views of the upper abdomen are unremarkable. The gallbladder is mildly distended. No stones are seen. IMPRESSION: 1. No acute pulmonary disease. 2. Coronary artery disease. 3. Distended gallbladder.
[2017-05-09] MEDS ORDERED: NON-FORMULARY MEDICATION (Potassium Chloride [Potassium Chloride] 10 MEQ) PO SCH (21:00)
[2017-05-09 21:38] VITALS: BMI 34.1
[2017-05-09] MEDS ORDERED: K-DUR ONE (21:48)
[2017-05-09] MEDS: HYDROCHLOROTHIAZIDE PO SCH (21:50)
[2017-05-09] MEDS: SOLU-MEDROL 40 MG IVP SCH (21:52)
[2017-05-09] MEDS ORDERED: DUONEB NEB ONE (23:04)
[2017-05-09] MEDS: DUONEB NEB SCH (23:04)
[2017-05-10] MEDS: DUONEB NEB SCH ×4 (04:48→23:32)
[2017-05-10] MEDS ORDERED: COLACE PO SCH (09:00)
[2017-05-10] MEDS: SYNTHROID PO SCH (09:22)
[2017-05-10] MEDS: SODIUM CHLORIDE 1,000 ML IV SCH ×2 (09:22→22:37)
[2017-05-10] MEDS: SOLU-MEDROL 40 MG IVP SCH ×2 (09:22→20:21)
[2017-05-10] MEDS: ROCEPHIN 1 GM in SODIUM CHLORIDE 50 ML IV SCH (09:22)
[2017-05-10] MEDS: MICRO-K CAP PO SCH ×2 (09:22→20:21)
[2017-05-10] MEDS: LOVENOX SUBCUT SCH (09:23)
[2017-05-10] MEDS: COLACE PO SCH ×2 (09:27→20:21)
[2017-05-10] MEDS: TAMIFLU PO SCH ×2 (12:47→20:22)
--- NOTE | 2017-05-10 14:42 | PN ---
DATE OF SERVICE: 05/10/17 SUBJECTIVE: The patient still coughing and congested but feels some better. No fever since admission. REVIEW OF SYSTEMS: CONSTITUTIONAL: No fever, no chills. HEENT: Normal. ENDOCRINE: No weight gain, no weight loss. CVS: No angina symptoms. No CHF symptoms. No palpitations. No atypical chest pain for CAD. No shortness of breath. No PND, no orthopnea. RESPIRATORY: No cough, no hemoptysis. GI: No nausea, no vomiting. No abdominal pain. : No hematuria. No polyuria. MUSCULOSKELETAL: No joint swelling. PSYCHIATRIC: Not anxious. No depression. No suicidal thoughts. No homicidal thoughts. SKIN: Intact. No rash. PHYSICAL EXAMINATION: V/S: Blood pressure 108/64, respiratory rate 16, heart rate 80, temperature 98.0 with saturation 96% on 2 liters. HEENT: Normocephalic, atraumatic. Mucosa dry. NECK: Supple. No JVD, no carotid bruit. No lymphadenopathy. LUNGS: Decreased and basilar crackles. Clear to auscultation. No rales or rhonchi. HEART: S1, S2 normal. No S3. No murmur, gallop or regurgitation. ABDOMEN: Soft, nontender. Bowel sounds active. No rigidity. No rebound or guarding. No CVA tenderness. EXTREMITIES: No clubbing, cyanosis. 1+ edema both longer extremity. MUSCULOSKELETAL: No joint swelling. NEUROLOGIC: Awake, alert, oriented times three. No focal deficit. LYMPHATIC: No lymph nodes palpable. SKIN: Intact. LABS: Sodium 134, potassium 3.5, chloride 96, bicarb 30, BUN 10, creatinine 0.82. Two sets of cardiac enzymes are negative. WBC 7.36, hgb 10.7, hct 32.2 and plt count 190. ASSESSMENT: 1. COPD exacerbation secondary to the influenza A 2. Dehydration 3. Anemia 4. Chronic anterior abdominal wall nonhealing fistula 5. History of diverticulitis 6. Depression 7. COPD 8. Hypertension PLAN: 1. Continue IV fluids 2. Daily I&Os 3. Rocephin 1 gram daily 4. Lovenox 5. DUO NEBS 6. Levothyroxine 7. Tamiflu 8. Potassium 9. IV fluids TIME SPENT: More than 35 minutes MTDD
--- NOTE | 2017-05-10 15:31 | HP ---
DATE OF SERVICE: 05/09/17 CHIEF COMPLAINT: Coughing, congestion and shortness of breath. HISTORY OF PRESENT ILLNESS: This is a 67 year old female with a history of COPD, shortness of breath and multiple medical problems came to the emergency room with the coughing and congestion which started three to four days, cough which is a productive getting yellow/green phlegm. The patient is using the home breathing treatments and not helping. The patient came to the emergency room with shortness of breath. The patient was seen by Dr. Medina in the emergency room. ABG was pH 7.515, pCO2 41.9, pO2 91. CT of the chest done showed no acute problems. Serology was positive for the influenza A. At that time the patient was admitted to the hospital for the dehydration, Flu A positive for the breathing treatments and IV antibiotics and steroids. REVIEW OF SYSTEMS: CONSTITUTIONAL: No fever, no chills. Weakness and tiredness. Aches. HEENT: Normal. ENDOCRINE: No weight gain; no weight loss. CVS: No chest pain. No PND, no orthopnea. No shortness of breath. No PND, no orthopnea. RESPIRATORY: Cough, Congestion. No hemoptysis. GI: No nausea, no vomiting. No abdominal pain. No melena. : No hematuria. No polyuria. MUSCULOSKELETAL: No joint swelling. PSYCHIATRIC: Not anxious. No depression. No suicidal thoughts. No homicidal thoughts. SKIN: Intact, no open lesions. PAST MEDICAL HISTORY: CAD Dyslipidemia Dependent edema COPD oxygen dependant GERD Diverticulosis Osteoarthritis Hypothyroidism Diabetes Depression Anxiety PAST SURGICAL HISTORY: PE tubes in the ears History of diverticulitis with abscess status post partial colectomy complicated with abscess and the fistula which drains to the anterior abdominal wall and the patient still has fistula. PERSONAL HISTORY: The patient does not smoke or drink. Family history is significant for the heart problems. MEDICATIONS: Ventolin Potassium Colace Levothyroxine Symbicort Hydrochlorothiazide Linzess Meclizine Albuterol ALLERGIES: No known medications. PHYSICAL EXAMINATION: V/S: Temperature 100.3, heart rate 110, blood pressure 151/86, respiratory rate 24, saturation 95 on 3 liters. GENERAL: Sick looking lady laying in the bed. HEENT: Atraumatic, normocephalic. No scleral icterus. Pallor positive. Mucosa dry. NECK: Supple. No JVD, no bruit. No lymphadenopathy. No thyromegaly. HEART: S1, S2 normal. No murmur. No cyanosis or clubbing. No ascites. LUNGS: Decreased and basilar crackles. Mild expiratory wheeze. Clear to auscultation. No rales or rhonchi. ABDOMEN: Soft, nontender. Bowel sounds are sluggish. Fistula site is healthy. No CVA tenderness. No rigidity or guarding. EXTREMITIES: No cyanosis, clubbing. 1+ edema. MUSCULOSKELETAL: Normal joints, no swelling. NEUROLOGIC: The patient is awake and alert and oriented times three. SKIN: Intact; no open lesions. LYMPHATIC: No lymph nodes palpable. LABS: WBC 7.36, hgb 10.7, hct 32.2, plt count 190, sodium 134, potassium 3.5, chloride 96, bicarb 30, BUN 10, creatinine 0.82 and glucose is 100. Lactic acid 6.2. ASSESSMENT: 1. Influenza A positive. 2. Dehydration 3. COPD exacerbation secondary to the bronchitis 4. Chronic nonhealing anterior abdominal wall fistula 5. Diabetes 6. Hypertension 7. Hypothyroidism 8. Dependant edema PLAN: 1. Admit patient to the regular floor 2. CBC and CMP today and daily 3. Cardiac enzymes and troponin 4. IV fluids 5. Tamiflu 6. Steroids 7. Breathing treatments 8. Daily I&O's 9. IV Fluids TIME SPENT: MORE THAN 70 minutes for the admission. [facility]
--- NOTE | 2017-05-10 18:23 | CT ---
EXAM: Noncontrast CT of the abdomen and pelvis. HISTORY: Lower midline wound drainage. COMPARISON: 02/07/2017 TECHNIQUE: Contiguous axial images at 3 mm intervals were obtained from lung bases through the pelvi s. No contrast was given. Coronal reformats were reviewed. FINDINGS: The study is limited without contrast. There is a small soft tissue density in the midline of the lower abdomen extend to the umbilicus. The soft tissue density measures 2.1 x 1.7 cm. There is an extension to the right side containing air. Findings suggest a fluid collection and/or absces s. Evaluation is limited with contrast. CHEST: The lung bases show no lobar consolidation or effusion. The heart size is within normal limi ts. ABDOMEN: Evaluation of the soft tissue organs is limited without contrast. LIVER: Noncontrast images of the liver show no solid mass lesion or intrahepatic ductal dilatation. BILIARY: The gallbladder is not well distended. No gallstones are noted. No pericholecystic fluid or inflammation. The common bile duct is normal. SPLEEN: The spleen is unremarkable. PANCREAS: The pancreas shows no mass lesion or peripancreatic inflammation. ADRENAL GLANDS: The adrenal glands are normal. RENAL: The kidneys show no hydronephrosis or nephrolithiasis. There are no obstructing ureteral sto farhan. No solid mass lesions are identified. RETROPERITONEUM: The aorta is unopacified. No aneurysm is identified. calcifications are seen. T here is no retroperitoneal or mesenteric adenopathy. BOWEL: The bowel is unopacified. There is no obstruction or inflammatory change. There is no free fluid or free air. No significant inflammatory changes are seen. Diffuse diverticulosis is seen wi thout evidence of acute diverticulitis. The appendix is identified and is normal. PELVIS: BLADDER: The bladder is not well distended which limits evaluation. GENITOURINARY STRUCTURES: The uterus and ovaries are unremarkable. OSSEOUS STRUCTURES: The osseous structures are normal for age. IMPRESSION 1. Small soft tissue density in the subcutaneous fat extend to the umbilicus which has appearance of a small abscess. Correlate with history and symptoms. No definite drainable fluid collections iden tified. 2. The appendix is normal. 3. Diverticulosis without evidence of acute diverticulitis.
[2017-05-10] MEDS: HYDROCHLOROTHIAZIDE PO SCH (20:22)
[2017-05-11] MEDS: DUONEB NEB SCH ×4 (05:06→23:04)
[2017-05-11] MEDS: SYNTHROID PO SCH (05:34)
[2017-05-11] MEDS: LOVENOX SUBCUT SCH (08:38)
[2017-05-11] MEDS: MICRO-K CAP PO SCH ×2 (08:38→20:54)
[2017-05-11] MEDS: ROCEPHIN 1 GM in SODIUM CHLORIDE 50 ML IV SCH (08:39)
[2017-05-11] MEDS: TAMIFLU PO SCH ×2 (08:39→20:54)
[2017-05-11] MEDS: COLACE PO SCH ×2 (08:39→20:54)
[2017-05-11] MEDS: SOLU-MEDROL 40 MG IVP SCH ×2 (09:24→20:53)
[2017-05-11] MEDS: ANTIVERT PO SCH ×3 (10:53→20:54)
[2017-05-11] MEDS: SODIUM CHLORIDE 1,000 ML IV SCH (11:30)
[2017-05-11] MEDS: FLAGYL 500 MG/100 ML 500 MG in PREMIX 100 ML NS 1 BAG IV SCH ×2 (12:39→20:56)
[2017-05-11] MEDS: NYSTOP POWDER TP SCH ×2 (15:28→20:56)
[2017-05-11] MEDS: HYDROCHLOROTHIAZIDE PO SCH (20:54)
[2017-05-12] MEDS: SODIUM CHLORIDE 1,000 ML IV SCH ×2 (01:54→18:08)
[2017-05-12] MEDS: DUONEB NEB SCH ×4 (03:27→23:50)
[2017-05-12] MEDS: FLAGYL 500 MG/100 ML 500 MG in PREMIX 100 ML NS 1 BAG IV SCH ×3 (05:37→21:02)
[2017-05-12] MEDS: SYNTHROID PO SCH (05:37)
[2017-05-12] MEDS: TAMIFLU PO SCH ×2 (08:28→21:02)
[2017-05-12] MEDS: MICRO-K CAP PO SCH ×2 (08:28→21:02)
[2017-05-12] MEDS: COLACE PO SCH ×2 (08:28→21:01)
[2017-05-12] MEDS: ANTIVERT PO SCH ×3 (08:29→21:02)
[2017-05-12] MEDS: LOVENOX SUBCUT SCH (08:29)
[2017-05-12] MEDS: NYSTOP POWDER TP SCH ×2 (08:30→21:04)
[2017-05-12] MEDS: ROCEPHIN 1 GM in SODIUM CHLORIDE 50 ML IV SCH (08:30)
[2017-05-12] MEDS: SOLU-MEDROL 40 MG IVP SCH ×2 (09:32→21:02)
[2017-05-12] MEDS: TESSALON PERLES PO SCH ×3 (11:50→21:02)
[2017-05-12] MEDS: ROBITUSSIN AC SYRUP PO PRN ×2 (11:50→18:50)
[2017-05-12] MEDS: HYDROCHLOROTHIAZIDE PO SCH (21:01)
[2017-05-13] MEDS: DUONEB NEB SCH ×4 (04:05→20:26)
[2017-05-13] MEDS: SYNTHROID PO SCH (06:05)
[2017-05-13] MEDS: FLAGYL 500 MG/100 ML 500 MG in PREMIX 100 ML NS 1 BAG IV SCH ×3 (06:05→21:05)
[2017-05-13] MEDS: TAMIFLU PO SCH ×2 (08:31→21:07)
[2017-05-13] MEDS: TESSALON PERLES PO SCH ×3 (08:31→21:08)
[2017-05-13] MEDS: SOLU-MEDROL 40 MG IVP SCH ×2 (08:32→20:55)
[2017-05-13] MEDS: ROCEPHIN 1 GM in SODIUM CHLORIDE 50 ML IV SCH (08:32)
[2017-05-13] MEDS: COLACE PO SCH ×2 (08:32→21:07)
[2017-05-13] MEDS: ANTIVERT PO SCH ×3 (08:32→21:08)
[2017-05-13] MEDS: MICRO-K CAP PO SCH ×2 (08:32→21:07)
[2017-05-13] MEDS: LOVENOX SUBCUT SCH (08:33)
[2017-05-13] MEDS: NYSTOP POWDER TP SCH ×2 (08:39→21:07)
[2017-05-13] MEDS: SODIUM CHLORIDE 1,000 ML IV SCH (08:41)
[2017-05-13] MEDS: HYDROCHLOROTHIAZIDE PO SCH (21:08)
[2017-05-13] MEDS ORDERED: SODIUM CHLORIDE 1,000 ML IV SCH (22:02)
[2017-05-14] MEDS: FLAGYL 500 MG/100 ML 500 MG in PREMIX 100 ML NS 1 BAG IV SCH ×3 (04:52→21:26)
[2017-05-14] MEDS: DUONEB NEB SCH ×4 (05:03→20:29)
[2017-05-14] MEDS: SYNTHROID PO SCH (05:47)
[2017-05-14] MEDS ORDERED: LASIX IVP STA (07:48)
[2017-05-14] MEDS: ROCEPHIN 1 GM in SODIUM CHLORIDE 50 ML IV SCH (08:50)
[2017-05-14] MEDS: SOLU-MEDROL 40 MG IVP SCH ×2 (08:51→21:29)
[2017-05-14] MEDS: LOVENOX SUBCUT SCH (08:51)
[2017-05-14] MEDS: NYSTOP POWDER TP SCH ×2 (08:51→21:28)
[2017-05-14] MEDS: ANTIVERT PO SCH ×3 (08:52→21:27)
[2017-05-14] MEDS: COLACE PO SCH ×2 (08:52→21:27)
[2017-05-14] MEDS: TESSALON PERLES PO SCH ×3 (08:52→21:27)
[2017-05-14] MEDS: MICRO-K CAP PO SCH ×2 (08:52→21:28)
[2017-05-14] MEDS: TAMIFLU PO SCH ×2 (08:52→21:27)
[2017-05-14] MEDS: HYDROCHLOROTHIAZIDE PO SCH (21:26)
[2017-05-15] MEDS: FLAGYL 500 MG/100 ML 500 MG in PREMIX 100 ML NS 1 BAG IV SCH ×3 (04:29→21:27)
[2017-05-15] MEDS: DUONEB NEB SCH ×4 (05:29→23:36)
[2017-05-15] MEDS: SYNTHROID PO SCH (05:37)
[2017-05-15] MEDS ORDERED: LASIX IVP STA (08:34)
[2017-05-15] MEDS: LOVENOX SUBCUT SCH (09:45)
[2017-05-15] MEDS: ROCEPHIN 1 GM in SODIUM CHLORIDE 50 ML IV SCH (09:45)
[2017-05-15] MEDS: SOLU-MEDROL 40 MG IVP SCH ×2 (09:46→21:26)
[2017-05-15] MEDS: TESSALON PERLES PO SCH ×3 (09:46→21:26)
[2017-05-15] MEDS: COLACE PO SCH ×2 (09:46→21:26)
[2017-05-15] MEDS: ANTIVERT PO SCH ×3 (09:46→21:26)
[2017-05-15] MEDS: NYSTOP POWDER TP SCH ×2 (09:47→21:27)
[2017-05-15] MEDS: MICRO-K CAP PO SCH ×2 (10:02→21:26)
--- NOTE | 2017-05-15 11:05 | US ---
EXAM: Limited abdominal ultrasound. History: Follow-up abscess. Comparison: CT abdomen pelvis 05/10/2017 Technique: Multiple sonographic images through the abdomen were obtained. Color duplex Doppler was used to interrogate vascular flow. Findings / impression: Within the subcutaneous soft tissues of the midline abdomen, there is a 2.6 c m x 1.1 cm x 1.5 cm area of fluid which could represent a residual abscess or seroma versus resolvin g hematoma.
--- NOTE | 2017-05-15 14:32 | PN ---
DATE OF SERVICE: 05/14/17 SUBJECTIVE: The patient was admitted with Flu and now has intraabdominal wall abscess with the fistula questionable. The patient had history of diverticulosis surgery, it went well. Still draining some clear fluid. Leg edema is worse today. Some shortness of breath. REVIEW OF SYSTEMS: CONSTITUTIONAL: No fever, no chills. HEENT: Normal. ENDOCRINE: No weight gain, no weight loss. CVS: No angina symptoms. No CHF symptoms. No palpitations. No atypical chest pain for CAD. No shortness of breath. No PND, no orthopnea. RESPIRATORY: No cough, no hemoptysis. GI: No nausea, no vomiting. No abdominal pain. : No hematuria. No polyuria. MUSCULOSKELETAL: No joint swelling. PSYCHIATRIC: Not anxious. No depression. No suicidal thoughts. No homicidal thoughts. SKIN: Intact. No rash. PHYSICAL EXAMINATION: V/S: Blood pressure 129/74, respiratory rate 16, heart rate 74 and temperature 97.4 with saturation 99 on 3 liters. HEENT: Normocephalic, atraumatic. Mucosa dry. Pallor positive. No icterus. NECK: Supple. No JVD, no carotid bruit. No lymphadenopathy. LUNGS: Bilateral entry is decreased and basilar crackles. No rales or rhonchi. HEART: S1, S2 normal. No S3. No murmur, gallop or regurgitation. ABDOMEN: Soft, nontender. Wound has some granulation tissue, scanty drainage. Bowel sounds active. No rigidity. No rebound or guarding. No CVA tenderness. EXTREMITIES: No clubbing, cyanosis. 2+ edema. MUSCULOSKELETAL: No joint swelling. NEUROLOGIC: Awake, alert, oriented times three. No focal deficit. LYMPHATIC: No lymph nodes palpable. SKIN: Intact. LABS: WBC 1.43, hgb 3.4, hct 103, bicarb 29, BUN 14, creatinine 0.82, WBC 6.32, hgb 9.5, hct 39.4, plt count 174. ASSESSMENT: 1. COPD exacerbation secondary to Flu A 2. Intraabdominal wall abscess 3. Dependent Edema 4. Hypothyroidism 5. Anemia 6. Depression 7. Noncompliance PLAN: 1. Given Lasix 20mg IV push 2. Stop the IV fluids 3. Continue Tamiflu 75mg Q 12hours 4. Lovenox 40mg daily 5. Rocephin 6. Flagyl 7. Solu-Medrol 40mg Q 12 hours. 8. Daily I&O's Will follow the patient in daily rounds. TIME SPENT: More than 35 minutes MTDD
[2017-05-15] MEDS: SODIUM CHLORIDE 1,000 ML IV SCH (15:32)
[2017-05-15] MEDS: HYDROCHLOROTHIAZIDE PO SCH (21:26)
[2017-05-16] MEDS: DUONEB NEB SCH ×2 (04:08→10:17)
[2017-05-16] MEDS: FLAGYL 500 MG/100 ML 500 MG in PREMIX 100 ML NS 1 BAG IV SCH (05:33)
[2017-05-16] MEDS: SYNTHROID PO SCH (05:33)
[2017-05-16] MEDS: NYSTOP POWDER TP SCH (09:28)
[2017-05-16] MEDS: SOLU-MEDROL 40 MG IVP SCH (09:28)
[2017-05-16] MEDS: ROCEPHIN 1 GM in SODIUM CHLORIDE 50 ML IV SCH (09:28)
[2017-05-16] MEDS: MICRO-K CAP PO SCH (09:28)
[2017-05-16] MEDS: TESSALON PERLES PO SCH (09:28)
[2017-05-16] MEDS: LOVENOX SUBCUT SCH (09:29)
[2017-05-16] MEDS: ANTIVERT PO SCH (09:29)
[2017-05-16] MEDS: COLACE PO SCH (09:29)
[2017-05-16 10:20] VITALS: BP 118/58; TEMP 98.6
--- NOTE | 2017-05-22 11:11 | DS ---
DATE OF SERVICE: 05/16/17 FINAL DIAGNOSIS: 1. COPD EXACERBATION SECONDARY TO INFLUENZA A POSITIVE 2. ANTERIOR ABDOMINAL WALL ABSCESS WITH QUESTIONABLE FISTULA WHICH IS A COMPLICATION FROM HER BOWEL RESECTION SURGERY FOR DIVERTICULITIS 3. DEPENDENT EDEMA 4. COPD 5. NONCOMPLIANCE 6. OBESITY 7. HYPOTHYROIDISM 8. CAD 9. DYSLIPIDEMIA 10. HISTORY OF DIVERTICULOSIS 11. HYPOTHYROIDISM 12. OSTEOARTHRITIS 13. PARTIAL COLECTOMY FOR DIVERTICULAR ABSCESS WITH COMPLICATIONS 14. HYPOKALEMIA WHICH HAS RESOLVED DISCHARGE INSTRUCTIONS: Discharge home. The patient does not want to be transferred for the anterior abdominal wall abscess to the surgeon. Followup appointment: Dr. Bailey at the [facility] at 05/23/17 at 1:30 p.m. Keep appointment with Ean Malik Jr., Surgeon/[facility]/[place], [place]. Ph: . The appointment has been made from the hospital. MEDICATIONS AT DISCHARGE: Albuterol Symbicort Colace Hydrochlorothiazide Levothyroxine Linzess Meclizine NEW PRESCRIPTIONS: Keflex 500 mg take one capsule by mouth twice daily for 5 days Flagyl 500 mg take one tablet by mouth every 8 hours for 5 days Prednisone 10 mg one p.o. twice daily with food for 5 days Nystatin (Nystop powder) apply to reddened skin folds as needed (hospital supply ) DIET INSTRUCTIONS: Cardiac and high protein diet. ACTIVITY: Get plenty of rest at home. Gradually increase your activity level according to your toleration. SMOKING: Former smoker DISEASE SPECIFIC EDUCATION: COPD, NEED FOR PNEUMONIA VACCINATION DISCUSSED AND VERBALIZED UNDERSTANDING. ANTERIOR ABDOMINAL WALL AND COMPLICATIONS DISCUSSED, VERBALIZED UNDERSTANDING HOSPITAL COURSE: This patient is a patient of mine with history of multiple medical problems and COPD, came to the Emergency Room with cough, congestion and shortness of breath , seen by Dr. Medina in the ER. ABG showed pH 7.515, pc02 41.9, p02 91. BUN and creatinine were normal. Influenza was normal. At that time the patient was admitted to the hospital with Influenza A positive, for breathing treatments and steroids. On admission, we noticed that her anterior abdominal wall was still oozing serous and foul-smelling fluid which was sent for culture. CT of abdomen showed abscess and fistula. The patient was started on Rocephin and Flagyl. Tamiflu was given, IV fluids and steroids. With the given treatment she was feeling better. The wound did grow E. coli and was sensitive to Rocephin. The patient clearly refused to be transferred to [facility]. We did explain that as the abscess would need drainage but she clearly mentioned that she did not want to be transferred to [facility] as she has difficulty going back and forth to [facility] because of her socioeconomic status and everything. The patient's request was kept in mind and she was not transferred. Gradually the patient started feeling better. Repeat ultrasound showed only 2 cm wide abscess. At that time, the patient was up and about walking but had some dependent edema, less short of breath. No fever, no chills. At that time she was discharged home with antibiotic Keflex, steroids and Flagyl. We did make an appointment at [facility] and appointment at [facility]. We will be seeing her in one week. TIME SPENT: MORE THAN 60 MINUTES TAMMIE
== END 2017-05-16 13:35 | disposition home or self-care (01) | DRG 191 ==
LOC: ED 17:21 → MEDSURG B 20:19
PROVIDERS: ADMIT Emergency Medicine; ATTEND Emergency Medicine
DX: J44.1 Chronic obstructive pulmonary disease with (acute) exacerbation (principal); T81.83XA Persistent postprocedural fistula, initial encounter; K63.2 Fistula of intestine; L02.211 Cutaneous abscess of abdominal wall; R05 Cough; J11.1 Influenza due to unidentified influenza virus with other respiratory manifestations; R06.02 Shortness of breath; E11.9 Type 2 diabetes mellitus without complications; I10 Essential (primary) hypertension; E03.9 Hypothyroidism, unspecified; B96.20 Unspecified Escherichia coli [E. coli] as the cause of diseases classified elsewhere; R60.0 Localized edema; E66.9 Obesity, unspecified; I25.10 Atherosclerotic heart disease of native coronary artery without angina pectoris; E87.6 Hypokalemia; F32.9 Major depressive disorder, single episode, unspecified; M19.90 Unspecified osteoarthritis, unspecified site; Z90.49 Acquired absence of other specified parts of digestive tract; Z91.19 Patient's noncompliance with other medical treatment and regimen; Z87.19 Personal history of other diseases of the digestive system; Z79.899 Other long term (current) drug therapy; Z16.11 Resistance to penicillins
CPT/HCPCS: 36415; 80053; 82550; 82553; 82803; 83605; 84145; 84484; 85025; 87070; 87186; 87502; 87651; 93005; 93010; 94640; 96365; 99284

== ENCOUNTER 2017-05-23 20:36 | Emergency (ER) | payer OTHER ==
[2017-05-23] MEDS ORDERED: SOLU-MEDROL 125 MG IVP STA (20:52)
[2017-05-23] MEDS ORDERED: DUONEB NEB ONE (20:52)
[2017-05-23 20:53] VITALS: BP 158/96; TEMP 98.7; BMI 30.1
--- NOTE | 2017-05-23 20:56 | ED.PDOC ---
General ED Provider: Dr. KARLY POLLOCK Chief Complaint: Shortness of Air Stated Complaint: Patient states she has a history of COPD was recently discharged from the hospital for copd excercerbation. She received steroids and antiboitcs. States she has anxiety and took someone elses lexapro. Time Seen by Physician: 20:53 Mode of Arrival: Ambulance Information Source: Patient, EMT Primary Care Provider[facility] Nursing and Triage Documentation Reviewed and Agree: Yes Reviewed sepsis parameters & appropriate labs ordered?: Yes System Inflammatory Response Syndrome: Pulse >90 BPM Sepsis Protocol: For patient's 13 years and over: Temp is 96.8 and below OR 101 and greater Pulse >90 BPM Resp >20/minute Acutely Altered Mental Status Are patient's symptoms suggestive of a new infection, such as: -Pneumonia -Skin, Soft Tissue -Endocarditis -UTI -Bone, Joint Infection -Implantable Device -Acute Abdominal Infection -Wound Infection -Meningitis -Blood Stream Catheter Infection -Unknown Review of Systems - Review Of Systems Constitutional: Reports: No symptoms Eyes: Reports: No symptoms Ears, Nose, Mouth, Throat: Reports: No symptoms Respiratory: Reports: Cough, Short of air, Wheezing Cardiac: Reports: No symptoms GI: Reports: No symptoms : Reports: No symptoms Musculoskeletal: Reports: No symptoms Skin: Reports: No symptoms Neurological: Reports: Anxiety Endocrine: Reports: No symptoms Hematologic/Lymphatic: Reports: No symptoms All Other Systems: Reviewed and Negative Past Medical History - Past Medical History Previously Healthy: Yes Endocrine: Reports: DM 2, Hypothyroid, Dyslipidemia Cardiovascular: Reports: CAD, Hypertension, CHF Respiratory: Reports: COPD Hematological: Reports: None Gastrointestinal: Reports: None Genitourinary: Reports: None Neuro/Psych: Reports: None Musculoskeletal: Reports: Arthritis, Back Pain Cancer: Reports: None Last Menstrual Period: YEARS Other Pertinent Past Medical History: htn thy chol copd diverticulitis, PNA c- section - Surgical History General Surgical History: Reports: Other, Unknown - Family History Family History: Reports: Unknown - Social History Smoking Status: Former smoker Hx Substance Use: No Alcohol Screening: None - Immunizations Tetanus Shot up to Date: Yes Physical Exam - Physical Exam Appearance: Ill-appearing Ill-appearing: Mild Eyes: JM, EOMI, Conjunctiva clear Neck: Supple Respiratory: Breath sounds diminished, Rhonchi, Wheezes Cardiovascular: RRR, Pulses normal, No rub, No murmur GI/: Soft, Nontender, No masses, Bowel sounds normal, No Organomegaly Musculoskeletal: Normal strength, ROM intact, No edema, No calf tenderness Skin: Warm, Dry, Normal color Neurological: Sensation intact, Motor intact, Reflexes intact, Cranial nerves intact, Alert, Oriented Psychiatric: Anxious Interpretation - Radiology Interpretation Radiology Interpretation By: ED Physician - EKG Interpretation Time of EKG #1: 21:01 Rate: Normal Rhythm: Sinus Ectopy: None [place]: [place] Interpretation: cannot rule out anterior infact age unknown. Physician Notification - Case Discussed Physician Notified: Dr Bailey Time of Notification: 22:30 (Discharge home with Anxiety medications. Has home health to change dressing. Continue home medications.) Critical Care Note - Critical Care Note Total Time (mins): 30 Course - Course Hematology/Chemistry: 05/23/17 21:10 05/23/17 21:10 Orders, Labs, Meds: Lab Review 05/23/17 05/23/17 05/23/17 21:09 21:10 21:10 WBC 18.47 H RBC 4.11 L Hgb 12.6 Hct 38.7 MCV 94.2 MCH 30.7 MCHC 32.6 RDW Coeff of [place] 15.1 H Plt Count 301 Immature Gran % (Auto) 0.4 Neut % (Auto) 79.3 Lymph % (Auto) 12.8 [place] % (Auto) 4.8 Eos % (Auto) 2.4 Baso % (Auto) 0.3 Immature Gran # (Auto) 0.1 Neut # 14.6 H Lymph # 2.4 [place] # 0.9 Eos # 0.5 Baso # 0.1 Puncture Site Rrrad O2 Saturation 94.0 L ABG pH 7.393 ABG pCO2 55.7 H ABG pO2 73.0 L ABG HCO3 33.9 H ABG Total CO2 36 H ABG Base Excess 9 H Cm Test + O2 Delivery Device Nc Oxygen Liter Flow 3.00 Sodium 139 Potassium 4.1 Chloride 98 Carbon Dioxide 30 Anion Gap 15.1 BUN 11 Creatinine 0.78 Estimated GFR (MDRD) 73.00 BUN/Creatinine Ratio 14.10 Glucose 96 Lactic Acid Calcium 9.5 Total Bilirubin 0.5 AST 15 ALT 16 Alkaline Phosphatase 59 Total Creatine Kinase 44 Troponin I 0.0110 Total Protein 7.2 Albumin 3.4 Globulin 3.8 Albumin/Globulin Ratio 0.89 Procalcitonin 05/23/17 05/23/17 21:10 21:10 WBC RBC Hgb Hct MCV MCH MCHC RDW Coeff of [place] Plt Count Immature Gran % (Auto) Neut % (Auto) Lymph % (Auto) [place] % (Auto) Eos % (Auto) Baso % (Auto) Immature Gran # (Auto) Neut # Lymph # [place] # Eos # Baso # Puncture Site O2 Saturation ABG pH ABG pCO2 ABG pO2 ABG HCO3 ABG Total CO2 ABG Base Excess Cm Test O2 Delivery Device Oxygen Liter Flow Sodium Potassium Chloride Carbon Dioxide Anion Gap BUN Creatinine Estimated GFR (MDRD) BUN/Creatinine Ratio Glucose Lactic Acid 7.5 Calcium Total Bilirubin AST ALT Alkaline Phosphatase Total Creatine Kinase Troponin I Total Protein Albumin Globulin Albumin/Globulin Ratio Procalcitonin < 0.05 Orders Category Date Time Status ABG DRAW REQUEST Stat CARDIO 05/23/17 21:09 Completed EKG-(ED ONLY) Stat CARDIO 05/23/17 20:50 Completed NEBULIZER TREATMENT Stat CARDIO 05/23/17 22:33 Completed ED APPLY O2 .ONCE EMERGENCY 05/23/17 20:50 Active ED IV/MEDIPORT/POWERPORT .ONCE EMERGENCY 05/23/17 20:50 Active ABG Stat LAB 05/23/17 21:09 Completed BLOOD CULTURE (ED ONLY) Stat LAB 05/23/17 21:10 Received CBC W/ AUTO DIFF Stat LAB 05/23/17 21:10 Completed COMPREHENSIVE METABOLIC PANEL Stat LAB 05/23/17 21:10 Completed CREATINE KINASE Stat LAB 05/23/17 21:10 Completed LACTIC ACID Stat LAB 05/23/17 21:10 Completed PROCALCITONIN Stat LAB 05/23/17 21:10 Completed TROPONIN I Stat LAB 05/23/17 21:10 Completed 0.9 % Sodium Chloride [Saline Flush] MEDS 05/23/17 20:50 Ordered 1 syr IVF PRN PRN Alprazolam [Xanax] MEDS 05/23/17 22:43 Discontinued 0.5 mg .ROUTE .STK-MED ONE Alprazolam [Xanax] MEDS 05/23/17 22:37 Discontinued 0.5 mg PO ONCE STA Ipratropium/Albuterol Neb [Duoneb] MEDS 05/23/17 20:52 Discontinued 1 vial NEB .STK-MED ONE Ipratropium/Albuterol Neb [Duoneb] MEDS 05/23/17 22:33 Discontinued 1 vial NEB ONCE STA Methylprednisolone Sod Succ/Pf [Solu-Medrol 125 mg] MEDS 05/23/17 20:52 Discontinued 125 mg IVP ONCE STA CHEST, 1V AP ONLY Stat RADS 05/23/17 20:50 Completed Medications Generic Name Dose Route Start Last Admin Trade Name Freq PRN Reason Stop Dose Admin Sodium Chloride 1 syr 05/23/17 20:50 05/23/17 21:30 Saline Flush IVF 1 syr PRN PRN Administration To flush IV Discontinued Medications Generic Name Dose Route Start Last Admin Trade Name Freq PRN Reason Stop Dose Admin Albuterol/Ipratropium 1 vial 05/23/17 22:33 05/23/17 22:35 Duoneb NEB 05/23/17 22:34 Not Given ONCE STA Alprazolam 0.5 mg 05/23/17 22:37 05/23/17 22:45 Xanax PO 05/23/17 22:38 0.5 mg ONCE STA Administration Methylprednisolone Sodium Succinate 125 mg 05/23/17 20:52 05/23/17 21:30 Solu-Medrol 125 Mg IVP 05/23/17 20:53 125 mg ONCE STA Administration Vital Signs: Temp Pulse Resp BP Pulse Ox 05/23/17 20:37 98.7 F 99 H 22 158/96 H 94 L Departure - Departure Time of Disposition: 22:44 Disposition: HOME SELF-CARE Discharge Problem: Anxiety COPD (chronic obstructive pulmonary disease) Qualifiers: COPD type: chronic bronchitis Chronic bronchitis type: unspecified Qualified Code(s): J42 - Unspecified chronic bronchitis Instructions: COPD (Chronic Obstructive Pulmonary Disease) (ED), Anxiety (ED) Condition: Stable Pt referred to PMD for follow-up: Yes IPMP verified?: No Additional Instructions: continue home medications Follow up with PCP in 1-2 days Take anxiety medications as prescribed. Prescriptions: Lorazepam [Ativan] 0.25 mg PO QID PRN #15 tablet PRN Reason: Anxiety Allergies/Adverse Reactions: Allergies No Known Allergies Allergy (Uncoded 05/09/17 17:28) Home Medications: Ambulatory Orders Albuterol Sulfate [Ventolin Hfa] 2 puff IH Q4HR PRN 10/12/16 Levothyroxine Sodium 75 mcg PO DAILY 10/26/16 Linaclotide [Linzess] 145 mcg PO DAILY 01/09/17 Docusate Sodium [Colace] 200 mg PO BID 05/10/17 Cephalexin [Keflex] 500 mg PO Q12HR #10 capsule 05/16/17 Metronidazole [Flagyl] 500 mg PO Q8HR #15 tablet 05/16/17 Prednisone 10 mg PO BIDWM #10 tablet 05/16/17 Lorazepam [Ativan] 0.25 mg PO QID PRN #15 tablet 05/23/17 Disposition Discussed With: Patient
--- NOTE | 2017-05-23 22:09 | DI ---
EXAM: Single view of the chest. History: Cough. Comparison: Chest radiograph 06/09/2016, chest CT 05/09/2017 Findings: Heart size is upper limits of normal. No focal consolidation. No appreciable pleural flu id and no pneumothorax. Calcified granulomas are again seen within the thorax. No acute osseous abn ormalities. Impression: No acute cardiopulmonary process.
[2017-05-23] MEDS ORDERED: DUONEB NEB STA (22:33)
[2017-05-23] MEDS ORDERED: XANAX PO STA (22:37)
[2017-05-23] MEDS ORDERED: XANAX ONE ×2 (22:43→22:45)
== END 2017-05-24 00:40 | disposition home or self-care (01) ==
LOC: ED 20:36
DX: F41.9 Anxiety disorder, unspecified (principal); J42 Unspecified chronic bronchitis; E11.9 Type 2 diabetes mellitus without complications; E03.9 Hypothyroidism, unspecified; E78.5 Hyperlipidemia, unspecified; I10 Essential (primary) hypertension; I50.9 Heart failure, unspecified; I25.10 Atherosclerotic heart disease of native coronary artery without angina pectoris; Z99.81 Dependence on supplemental oxygen; Z79.899 Other long term (current) drug therapy
CPT/HCPCS: 36415; 80053; 82550; 82803; 83605; 84145; 84484; 85025; 87040; 93005; 93010; 94640; 96374; 99284

== ENCOUNTER 2017-08-03 20:57 | Inpatient (IN) | payer OTHER ==
--- NOTE | 2017-08-03 23:12 | CT ---
Exam: CT of the abdomen and pelvis without contrast History: Constipation Technique: [address] of the abdomen and pelvis without intravascular contrast FINDINGS: The lung bases show scarring on the right. No infiltrative opacities are seen. The gallb ladder is distended without pericholecystic inflammation. The gallbladder long axis is at least 10 c m. The pancreas, spleen and adrenal glands appear normal. Kidneys and proximal collecting system are unremarkable. The appendix is normal. Zambrano colonic diverticulosis. Large stool retention of the tra nsverse and left segments. Pericolonic inflammatory changes present with possible wall thickening. Abrupt transition at the proximal sigmoid without mass. Colonic diverticulosis of the sigmoid. No f ree intraperitoneal gas or ascites. Colonic diverticulosis of the sigmoid. No free pelvic fluid. Normal pelvic genitourinary structures . No acute findings of the skeleton. Impression: 1. Critical result: Colonic obstruction in the proximal sigmoid with abrupt narrowing. No soft tis ave mass is seen. Stricture favored over a obstructing mass. 2. Descending colonic wall thickening and pericolonic edema. Possible obstruction related colitis. 3. Zambrano colonic diverticulosis Discussed with ordering physician at 2304 hours Central time.
--- NOTE | 2017-08-03 23:14 | CT ---
EXAM: CT pulmonary angiogram. HISTORY: Shortness of breath. Evaluate for pulmonary embolism. PROCEDURE: After the intravenous injection of contrast contiguous axial CT images of the chest were obtained with multiplanar and 3-D reformats. FINDINGS: There is normal enhancement of the pulmonary arteries with no evidence of pulmonary embolis m. The heart is within normal limits in size. The thoracic aorta is within normal limits in diamete r. There are calcified mediastinal and hilar lymph nodes and a calcified granuloma in the right lower lobe. There is minimal lingular, right middle lobe and right basilar atelectasis and/or pneumonia. T here are degenerative changes in the spine. The gallbladder is enlarged measuring 4.8 cm in diameter. There is questionable gallbladder wall thickening which is not well visualized by CT. There is feca l stasis in the colon. There is diverticulosis of the colon. Impression: No evidence of pulmonary embolism. Minimal bilateral atelectasis and/or pneumonia as described. Enlarged gallbladder with questionable gallbladder wall thickening as described. Recommend ultrasoun d for further evaluation if clinically indicated. Fecal stasis in the colon. Diverticulosis of the colon.
--- NOTE | 2017-08-03 23:15 | ED.PDOC ---
General ED Provider: Dr. JULIETA ZAIDI-ER Chief Complaint: Constipation Stated Complaint: i cant move my bowels Time Seen by Physician: 20:55 Mode of Arrival: Ambulance Information Source: Patient, EMT Exam Limitations: No limitations [facility] and Triage Documentation Reviewed and Agree: Yes Reviewed sepsis parameters & appropriate labs ordered?: Yes System Inflammatory Response Syndrome: Not Applicable Sepsis Protocol: For patient's 13 years and over: Temp is 96.8 and below OR 101 and greater Pulse >90 BPM Resp >20/minute Acutely Altered Mental Status Are patient's symptoms suggestive of a new infection, such as: -Pneumonia -Skin, Soft Tissue -Endocarditis -UTI -Bone, Joint Infection -Implantable Device -Acute Abdominal Infection -Wound Infection -Meningitis -Blood Stream Catheter Infection -Unknown GI Complaint Exam - Abdominal Pain Complaint/Exam Onset: Gradual Duration: several hours Symptoms Are: Still present Timing: Constant Initial Severity: Mild Current Severity: Mild Character: Reports: Dull Alleviating: Reports: None Associated Signs and Symptoms: Reports: Constipation Related History: Reports: Similar episode Cardiac Risk Factors: Reports: None Ectopic Risk Factors: Reports: None, Tubal ligation Surgical Obstruction Risk Factors: Denies: Bilious emesis, Projectile emesis Patient Rh Status: Unknown Differential Diagnoses: Constipation Review of Systems - Review Of Systems Constitutional: Reports: No symptoms Eyes: Reports: No symptoms Ears, Nose, Mouth, Throat: Reports: No symptoms Respiratory: Reports: No symptoms Cardiac: Reports: No symptoms GI: Reports: Constipated, Nausea : Reports: No symptoms Musculoskeletal: Reports: No symptoms Skin: Reports: No symptoms Neurological: Reports: No symptoms Endocrine: Reports: No symptoms Hematologic/Lymphatic: Reports: No symptoms All Other Systems: Reviewed and Negative Past Medical History - Past Medical History Previously Healthy: Yes Endocrine: Reports: DM 2, Hypothyroid, Dyslipidemia Cardiovascular: Reports: CAD, Hypertension, CHF Respiratory: Reports: COPD Hematological: Reports: None Gastrointestinal: Reports: None Genitourinary: Reports: None Neuro/Psych: Reports: None Musculoskeletal: Reports: Arthritis, Back Pain Cancer: Reports: None Last Menstrual Period: na Other Pertinent Past Medical History: htn thy chol copd diverticulitis, PNA c- section - Surgical History General Surgical History: Reports: Other, Unknown - Family History Family History: Reports: Unknown - Social History Smoking Status: Current some day smoker Hx Substance Use: No Alcohol Screening: Occasionally - Immunizations Tetanus Shot up to Date: No Physical Exam - Physical Exam Appearance: Well-appearing, No pain distress, Well-nourished Eyes: JM, EOMI, Conjunctiva clear ENT: Ears normal, Nose normal, Oropharynx normal Neck: Supple Respiratory: Airway patent, Breath sounds clear, Breath sounds equal, Respirations nonlabored Cardiovascular: RRR, Pulses normal, No rub, No murmur GI/: Soft, Nontender, No masses, Bowel sounds normal, No Organomegaly Musculoskeletal: Normal strength Skin: Warm, Dry, Normal color Neurological: Sensation intact, Motor intact, Reflexes intact, Cranial nerves intact, Alert, Oriented Psychiatric: Affect appropriate, Mood appropriate Interpretation - Radiology Interpretation Radiology Interpretation By: Radiologist Radiology Results: Positive Exam Interpreted: CT Scan - EKG Interpretation Time of EKG #1: 01:41 Rate: Normal Rhythm: Sinus Ectopy: None [place]: [place] ST Segment: Normal Interpretation: nsr Critical Care Note - Critical Care Note Total Time (mins): 1 Course - Course Hematology/Chemistry: 08/03/17 21:08 08/03/17 21:08 Orders, Labs, Meds: Lab Review 08/03/17 08/03/17 08/03/17 20:58 21:08 21:08 WBC 15.89 H RBC 4.00 L Hgb 12.3 Hct 36.0 L MCV 90.0 MCH 30.8 MCHC 34.2 RDW Coeff of [place] 14.4 Plt Count 408 Immature Gran % (Auto) 0.4 Neut % (Auto) 77.3 Lymph % (Auto) 14.3 [place] % (Auto) 6.4 Eos % (Auto) 1.3 Baso % (Auto) 0.3 Immature Gran # (Auto) 0.1 Neut # (Auto) 12.3 H Lymph # (Auto) 2.3 [place] # (Auto) 1.0 Eos # (Auto) 0.2 Baso # (Auto) 0.0 D-Dimer (Manual) Puncture Site Lb O2 Saturation 99.0 ABG pH 7.529 H* ABG pCO2 39.5 ABG pO2 114.0 H ABG HCO3 32.9 H ABG Total CO2 34 H ABG Base Excess 10 H Cm Test + O2 Delivery Device Bnc Oxygen Liter Flow 2.00 FiO2 % 28.0 Sodium 135 L Potassium 3.3 L Chloride 93 L Carbon Dioxide 26 Anion Gap 19.3 BUN 13 Creatinine 0.78 Estimated GFR (MDRD) 73.00 BUN/Creatinine Ratio 16.66 Glucose 118 H Calcium 10.0 Total Bilirubin 0.7 AST 9 L ALT 9 L Alkaline Phosphatase 84 Total Protein 7.0 Albumin 2.7 L Globulin 4.3 Albumin/Globulin Ratio 0.63 08/03/17 21:08 WBC RBC Hgb Hct MCV MCH MCHC RDW Coeff of [place] Plt Count Immature Gran % (Auto) Neut % (Auto) Lymph % (Auto) [place] % (Auto) Eos % (Auto) Baso % (Auto) Immature Gran # (Auto) Neut # (Auto) Lymph # (Auto) [place] # (Auto) Eos # (Auto) Baso # (Auto) D-Dimer (Manual) 3697.86 Puncture Site O2 Saturation ABG pH ABG pCO2 ABG pO2 ABG HCO3 ABG Total CO2 ABG Base Excess Cm Test O2 Delivery Device Oxygen Liter Flow FiO2 % Sodium Potassium Chloride Carbon Dioxide Anion Gap BUN Creatinine Estimated GFR (MDRD) BUN/Creatinine Ratio Glucose Calcium Total Bilirubin AST ALT Alkaline Phosphatase Total Protein Albumin Globulin Albumin/Globulin Ratio Orders Category Date Time Status ABG DRAW REQUEST Stat CARDIO 08/03/17 20:58 Completed EKG-(ED ONLY) Stat CARDIO 08/03/17 20:58 Completed NPO REMINDER: IMAGING ONCE CARE 08/03/17 22:05 Active Enema [ED ENEMA/RECTAL TUBE] .ONCE EMERGENCY 08/03/17 21:00 Active ABG Stat LAB 08/03/17 20:58 Completed CBC W/ AUTO DIFF Stat LAB 08/03/17 21:08 Completed COMPREHENSIVE METABOLIC PANEL Stat LAB 08/03/17 21:08 Completed D-DIMER Stat LAB 08/03/17 21:[address] ABDOMEN/PELVIS WO CONTRAST Stat RADS 08/03/17 20:[address] CHEST PE PROTOCOL Stat RADS 08/03/17 22:05 Completed Vital Signs: Temp Pulse Resp BP Pulse Ox 08/03/17 20:58 97.8 F 112 H 26 H 135/94 H 96 Departure - Departure Time of Disposition: 01:42 Disposition: ADMITTED INPATIENT Discharge Problem: Obstipation Instructions: Obstipation (ED) Condition: Good Pt referred to PMD for follow-up: Yes IPMP verified?: No Allergies/Adverse Reactions: Allergies No Known Allergies Allergy (Uncoded 03/29/18 21:08) Home Medications: Ambulatory Orders Albuterol Sulfate [Ventolin Hfa] 2 puff IH Q4HR PRN 02/17/16 Linaclotide [Linzess] 145 mcg PO DAILY 01/09/17 Docusate Sodium [Colace] 200 mg PO BID 05/10/17 Disposition Discussed With: Patient
[2017-08-04 02:42] VITALS: BMI 27.4
[2017-08-04] MEDS: SODIUM CHLORIDE 1,000 ML IV SCH ×2 (03:00→14:37)
[2017-08-04] MEDS: SYNTHROID PO SCH (05:33)
[2017-08-04] MEDS ORDERED: NON-FORMULARY MEDICATION (Potassium Chloride [Potassium Chloride] 10 MEQ) PO SCH (09:00)
[2017-08-04] MEDS ORDERED: ALBUTEROL SULFATE PO SCH (09:00)
[2017-08-04] MEDS ORDERED: SYNTHROID PO SCH (09:00)
[2017-08-04] MEDS: MICRO-K CAP PO SCH ×2 (09:40→17:32)
[2017-08-04] MEDS: COLACE PO SCH ×2 (09:40→20:26)
[2017-08-04] MEDS: LEXAPRO PO SCH (09:40)
[2017-08-04] MEDS: NON-FORMULARY MEDICATION (Linaclotide [Linzess] 145 MCG) PO SCH (09:42)
[2017-08-04] MEDS: SYMBICORT 160-4.5 MCG INHALER IH SCH ×2 (09:42→20:25)
[2017-08-04] MEDS: LOVENOX SUBCUT SCH (09:50)
[2017-08-04] MEDS: MILK OF MAGNESIA PO PRN (10:56)
[2017-08-04] MEDS ORDERED: ALBUTEROL 0.083% NEB NEB SCH (12:00)
[2017-08-04] MEDS: ROCEPHIN 1 GM in SODIUM CHLORIDE 50 ML IV SCH (14:36)
--- NOTE | 2017-08-04 16:06 | US ---
EXAM: Bilateral lower extremity venous Doppler History: Elevated D-dimer and bilateral leg swelling. Technique: Multiple sonographic images through the bilateral lower extremities were obtained. Color duplex Doppler was used to interrogate vascular flow. Findings: The bilateral common femoral, greater saphenous, profunda, superficial femoral, popliteal, peroneal, posterior tibial and anterior tibial veins demonstrate spontaneous flow with normal compre ssion and normal augmentation. Impression: No sonographic evidence for deep venous thrombosis.
[2017-08-04] MEDS: HYDROCHLOROTHIAZIDE PO SCH (20:26)
[2017-08-04] MEDS: DUONEB NEB SCH (22:12)
[2017-08-05] MEDS: SODIUM CHLORIDE 1,000 ML IV SCH (05:16)
[2017-08-05] MEDS: DUONEB NEB SCH ×3 (05:16→20:50)
[2017-08-05] MEDS: SYNTHROID PO SCH (05:47)
[2017-08-05] MEDS: LEXAPRO PO SCH (08:19)
[2017-08-05] MEDS: ROCEPHIN 1 GM in SODIUM CHLORIDE 50 ML IV SCH (08:19)
[2017-08-05] MEDS: COLACE PO SCH ×2 (08:19→20:30)
[2017-08-05] MEDS: MICRO-K CAP PO SCH ×2 (08:19→16:50)
[2017-08-05] MEDS: SYMBICORT 160-4.5 MCG INHALER IH SCH ×2 (08:19→21:15)
[2017-08-05] MEDS: NON-FORMULARY MEDICATION (Linaclotide [Linzess] 145 MCG) PO SCH (08:20)
[2017-08-05] MEDS: LOVENOX SUBCUT SCH (08:21)
--- NOTE | 2017-08-05 09:54 | CT ---
EXAM: CT ABDOMEN AND PELVIS HISTORY: Obstruction, follow-up TECHNIQUE: CT abdomen and pelvis without intravenous contrast. Images were reconstructed using 3 mm section thickness. Reformations were prepared. COMPARISON: 08/03/2017 FINDINGS: Diagnostic limitations exist without including contrast enhanced images. Liver and spleen reveal no acute abnormality. Mild distension of the gallbladder, nonspecific. Pancreas and adrenal glands wit hin normal limits. No hydronephrosis or evidence of ureteral obstruction. Mild atherosclerotic disea se. Scattered mesenteric lymph nodes. The stomach is within normal limits. Small bowel caliber is grossly within normal limits. Redemonst ration of probable stricture of the lower descending/proximal sigmoid colon best seen on axial image 21. There is diffuse colonic diverticulosis. The colonic wall is moderately thickened involving the transverse and descending with surrounding inflammatory changes of the abdominal fat. The colon debra iber proximal to this stricture is dilated. There is no ascites or definite pneumatosis. Uterus and urinary bladder within normal limits. No free air. IMPRESSION: Similar findings to that seen previously without notable improvement or worsening includi ng probable stricture at the distal descending/proximal sigmoid which may be inflammatory (colitis/di verticulitis) in nature. Other pathology not excluded. The small bowel caliber remains within earle l limits. There is no ascites, definite pneumatosis or free air.
[2017-08-05] MEDS: MILK OF MAGNESIA PO PRN (14:57)
[2017-08-05] MEDS ORDERED: K-DUR PO STA (18:31)
[2017-08-05] MEDS ORDERED: SODIUM CHLORIDE 1,000 ML IV SCH (18:31)
[2017-08-05] MEDS: HYDROCHLOROTHIAZIDE PO SCH (20:30)
[2017-08-06] MEDS: ATIVAN PO PRN ×2 (01:19→22:13)
[2017-08-06] MEDS: SYNTHROID PO SCH (05:40)
[2017-08-06] MEDS: DUONEB NEB SCH ×3 (06:15→22:10)
[2017-08-06] MEDS: SODIUM CHLORIDE 1,000 ML IV SCH (07:11)
[2017-08-06] MEDS: COLACE PO SCH ×2 (09:31→20:32)
[2017-08-06] MEDS: MICRO-K CAP PO SCH ×2 (09:32→16:55)
[2017-08-06] MEDS: LEXAPRO PO SCH (09:32)
[2017-08-06] MEDS: ROCEPHIN 1 GM in SODIUM CHLORIDE 50 ML IV SCH (09:33)
[2017-08-06] MEDS: LOVENOX SUBCUT SCH (09:35)
[2017-08-06] MEDS: NON-FORMULARY MEDICATION (Linaclotide [Linzess] 145 MCG) PO SCH (09:39)
[2017-08-06] MEDS: SYMBICORT 160-4.5 MCG INHALER IH SCH ×2 (09:40→20:33)
[2017-08-06] MEDS: HYDROCHLOROTHIAZIDE PO SCH (20:32)
[2017-08-06] MEDS: OMNICEF PO SCH (20:33)
[2017-08-07] MEDS: DUONEB NEB SCH ×3 (05:08→22:15)
[2017-08-07] MEDS: SYNTHROID PO SCH (05:43)
[2017-08-07] MEDS: COLACE PO SCH ×2 (09:39→20:52)
[2017-08-07] MEDS: SYMBICORT 160-4.5 MCG INHALER IH SCH ×2 (09:39→20:51)
[2017-08-07] MEDS: NON-FORMULARY MEDICATION (Linaclotide [Linzess] 145 MCG) PO SCH (09:40)
[2017-08-07] MEDS: LEXAPRO PO SCH (09:40)
[2017-08-07] MEDS: MICRO-K CAP PO SCH ×2 (09:41→20:52)
[2017-08-07] MEDS: LOVENOX SUBCUT SCH (09:42)
[2017-08-07] MEDS: OMNICEF PO SCH ×2 (09:42→20:52)
[2017-08-07] MEDS: ANTIVERT PO SCH (13:20)
[2017-08-07] MEDS: MILK OF MAGNESIA PO PRN (13:22)
[2017-08-07] MEDS ORDERED: MICRO-K CAP PO STA (14:29)
[2017-08-07] MEDS: HYDROCHLOROTHIAZIDE PO SCH (20:52)
--- NOTE | 2017-08-07 21:34 | CT ---
Exam: CT scan of the abdomen pelvis without contrast. Date: 08/07/2017. Comparison: 08/05/2017. HISTORY: Abdominal pain with small bowel obstruction. TECHNIQUE: Helical scan of the abdomen pelvis was performed without contrast. FINDINGS: The lung bases are clear with granulomatous calcifications. Degenerative changes are seen in the lumbar spine. The bony pelvis is intact. The spleen and liver have a uniform attenuation with granulomatous calcifications. The stomach, panc reas and adrenal glands are normal. The kidneys have a normal morphology. No calculi or hydronephros is is seen. No retroperitoneal adenopathy is present. Aorta has peripheral calcification and does n ot exceed 3 cm. The small bowel is normal. There is a large quantity of fecal material distending t he transverse colon and extending down to the proximal sigmoid colon with numerous diverticula presen t. There is subtle stranding of the fat surrounding the descending colon. There is redemonstration of fat filled descending colon and decompressed sigmoid colon with subtle increased attenuation in th e fat surrounding the sigmoid colon also noted. The bladder and uterus appear normal. There is no f ree pelvic fluid. The rectum inguinal regions are normal. Impression: No significant change when compared with 08/05/2017. There is marked distension of the t ransverse and descending colon with fecal material, down to the transition from the descending colon to the sigmoid colon. There are numerous diverticula with a subtle increased attenuation surrounding the descending and sigmoid colon. The findings are suggestive of a stricture at the descending colo n/sigmoid transition site which may be due to diverticulitis although other etiologies are not exclud ed. Colonoscopy may be necessary for further evaluation and possible decompression. Old granulomatous disease. ASVD.
[2017-08-07] MEDS: ATIVAN PO PRN (23:56)
[2017-08-08] MEDS: DUONEB NEB SCH (05:28)
[2017-08-08] MEDS: SYNTHROID PO SCH (05:33)
--- NOTE | 2017-08-08 09:27 | HP ---
DATE OF SERVICE: 08/04/17 CHIEF COMPLAINT: Shortness of breath. HISTORY OF PRESENT ILLNESS: This is a 67-year-old female who came to the emergency room via ambulance for shortness of breath and did not have breathing treatments. She is constipated, last bowel movement two days before. She has been coughing with congestion, getting clear to yellow phlegm. The patient has extensive medical history of COPD and recently had a bowel surgery for perforated diverticulosis complicated with a fistula. At that time, the patient was seen in the ER by Dr. Tabares. White count had left shift with 15,000, D. dimer 3,697. ABGs showed pH 7.529, pc02 39.5, p02 114. Chemistry potassium 3.3. CT of the chest with contrast showed questionable pneumonia, bibasilar. No pulmonary embolism. CT of abdomen and pelvis done which showed a lot of stool burden with questionable colonic obstruction with proximal sigmoid and abrupt narrowing; descending colonic wall thickening and pericolonic edema, question of colitis seen. Given history of the constipation and CT scan result, Dr. Tabares thought it was obstipation and patient admitted to [facility] for laxative treatments, antibiotics for pneumonia and treatment for shortness of breath. REVIEW OF SYSTEMS: CONSTITUTIONAL: Weakness, tiredness. No fever, no chills. HEENT: Normal. ENDOCRINE: No weight gain; no weight loss. CVS: No chest pain. No PND, no orthopnea. No shortness of breath. No PND, no orthopnea. RESPIRATORY: Cough and congestion. No hemoptysis. GI: Constipation. Abdominal pain. No nausea, no vomiting. No melena. : No hematuria. No polyuria. MUSCULOSKELETAL: No joint swelling. PSYCHIATRIC: Not anxious. No depression. No suicidal thoughts. No homicidal thoughts. SKIN: Intact, no open lesions. PAST MEDICAL HISTORY: CAD Hypertension Dyslipidemia Chronic leg edema COPD History of diverticulosis Osteoarthritis DJD spine Anxiety Depression PAST SURGICAL HISTORY: PE tubes and Patient did have partial colectomy for diverticulitis. After that, the patient was complicated with sinus tract. The patient still has wound on anterior wall of abdomen. PERSONAL HISTORY: Does not smoke; does not drink alcohol. FAMILY HISTORY: Significant for high blood pressure, diabetes. MEDICATIONS: Ventolin Hydrochlorothiazide Linzess Colace Lorazepam Potassium Levothyroxine Symbicort Escitalopram ALLERGIES: NKDA PHYSICAL EXAMINATION: V/S: BP 135/95, respiratory rate 26, heart rate 112, temperature 97.8. Saturation 96 on 2L. HEENT: Atraumatic, normocephalic. No scleral icterus. Mucosa dry. NECK: Supple. No JVD, no bruit. No lymphadenopathy. No thyromegaly. HEART: S1, S2 normal. No murmur. No cyanosis or clubbing. No ascites. LUNGS: Decreased with basilar crackles, mild wheezing. ABDOMEN: Soft, tenderness left upper quadrant. Bowel sounds are sluggish. No CVA tenderness. No rigidity or guarding. EXTREMITIES: 1+ edema. No cyanosis or clubbing MUSCULOSKELETAL: Normal joints, no swelling. NEUROLOGIC: The patient is awake and alert. SKIN: Intact; dry, no open lesions. LYMPHATIC: No lymph nodes palpable. LABS: White count 15.89, hemoglobin 12.3, hematocrit 36.0, platelet count 408. D. dimer 3697. ABG showed pH 7.529, pc02 39.5, p02 114. Sodium 135, potassium 3.3, chloride 93, bicarb 26, BUN 13, creatinine 0.7, glucose 118. ASSESSMENT: 1. OBSTIPATION, DISTAL COLONIC OBSTRUCTION WITH A LOT OF STOOL BURDEN 2. BIBASILAR PNEUMONIA 3. LEG EDEMA 4. ELEVATED D. DIMER 5. HYPERTENSION 6. DYSLIPIDEMIA 7. ANXIETY 8. ANTERIOR ABDOMINAL WALL FISTULA PLAN: 1. Admit patient to regular floor 2. CBC, CMP today and daily 3. Cardiac enzymes and troponin 4. IV fluids 5. Lovenox for DVT prophylaxis 6. Will start the patient on Rocephin 7. Continue Miralax 8. Followup with CT scan until improvement with obstipation TIME SPENT: MORE THAN 70 minutes MTDD
[2017-08-08] MEDS: COLACE PO SCH (09:33)
[2017-08-08] MEDS: ANTIVERT PO SCH (09:33)
[2017-08-08] MEDS: MICRO-K CAP PO SCH (09:33)
[2017-08-08] MEDS: NON-FORMULARY MEDICATION (Linaclotide [Linzess] 145 MCG) PO SCH (09:34)
[2017-08-08] MEDS: LEXAPRO PO SCH (09:34)
[2017-08-08] MEDS: OMNICEF PO SCH (09:34)
[2017-08-08] MEDS: LOVENOX SUBCUT SCH (09:37)
[2017-08-08] MEDS: SYMBICORT 160-4.5 MCG INHALER IH SCH (09:37)
--- NOTE | 2017-08-08 09:38 | PN ---
DATE OF SERVICE: 08/07/17 SUBJECTIVE: The patient is sitting on the bed eating. Still having left upper quadrant pain. Did move the bowel movements yesterday two times, small and liquid. REVIEW OF SYSTEMS: CONSTITUTIONAL: No fever, no chills. HEENT: Normal. ENDOCRINE: No weight gain, no weight loss. CVS: No angina symptoms. No CHF symptoms. No palpitations. No atypical chest pain for CAD. No shortness of breath. No PND, no orthopnea. RESPIRATORY: No cough, no hemoptysis. GI: No nausea, no vomiting. No abdominal pain. : No hematuria. No polyuria. MUSCULOSKELETAL: No joint swelling. PSYCHIATRIC: Not anxious. No depression. No suicidal thoughts. No homicidal thoughts. SKIN: Intact. No rash. PHYSICAL EXAMINATION: V/S: blood pressure 128/77, respiratory 16, heart rate 65, temperature 98.1. HEENT: Normocephalic, atraumatic. Mucosa dry. Pallor positive. No icterus. NECK: Supple. No JVD, no carotid bruit. No lymphadenopathy. LUNGS: Clear to auscultation. No rales or rhonchi. HEART: S1, S2 normal. No S3. No murmur, gallop or regurgitation. ABDOMEN: Soft, tenderness in the left upper quadrant is still present. Bowel sounds hyperactive. No rigidity. No rebound or guarding. No CVA tenderness. EXTREMITIES: No pedal edema. No clubbing or cyanosis MUSCULOSKELETAL: No joint swelling. NEUROLOGIC: Awake, alert, oriented times three. No focal deficit. LYMPHATIC: No lymph nodes palpable. SKIN: Intact. LABS: Sodium 137, potassium 3.3, chloride 101, bicarb 26, BUN 7, creatinine 0.71, WBC 10.20, hgb 10.5, hct 33.0, plt count 363. ASSESSMENT: 1. Questionable small bowel obstruction with obstipation 2. Hypokalemia 3. Anterior abdominal wall wound from fistula 4. History of diverticulitis with abscess drainage and the fistula formation 5. Hypertension 6. Dyslipidemia 7. Dizziness. PLAN: 1. CT abdomen and pelvis 2. Continue Omnicef 3. Lovenox for the DVT prophylaxis 4. Replace the Potassium 5. Out of bed to chair 6. Patient CT abdomen was showing stricture at the distal descending proximal sigmoid which maybe inflammatory colitis and diverticulitis in nature. Other pathology not excluded. The small bowel caliber remains within the normal limits. Given the patient's been moving slowly bowel movements and tolerating the feedings anticipating the bowels to open up but go ahead and get one more CAT scan and see how the patient is progressing. TIME SPENT: More than 35 minutes MTDD
--- NOTE | 2017-08-08 09:46 | PN ---
DATE OF SERVICE: 08/06/17 SUBJECTIVE: The patient was admitted for the obstipation and questionable small bowel obstruction. The patient been having small bowel movements here and there. No vomiting or diarrhea. Eating food and tolerating well but still has left upper quadrant pain. REVIEW OF SYSTEMS: CONSTITUTIONAL: No fever, no chills. HEENT: Normal. ENDOCRINE: No weight gain, no weight loss. CVS: No angina symptoms. No CHF symptoms. No palpitations. No atypical chest pain for CAD. No shortness of breath. No PND, no orthopnea. RESPIRATORY: No cough, no hemoptysis. GI: No nausea, no vomiting. No abdominal pain. : No hematuria. No polyuria. MUSCULOSKELETAL: No joint swelling. PSYCHIATRIC: Not anxious. No depression. No suicidal thoughts. No homicidal thoughts. SKIN: Intact. No rash. PHYSICAL EXAMINATION: V/S: Blood pressure 128/77, respiratory rate 18, heart rate 82 and temperature 99.1 with saturation 100% on 2 liters. HEENT: Normocephalic, atraumatic. Mucosa dry. pallor positive. No icterus. NECK: Supple. No JVD, no carotid bruit. No lymphadenopathy. LUNGS: Decreased and Clear to auscultation. No rales or rhonchi. HEART: S1, S2 normal. No S3. No murmur, gallop or regurgitation. ABDOMEN: Soft, left upper quadrant mild tenderness. Bowel sounds slightly hyperactive. No rigidity. No rebound or guarding. No CVA tenderness. EXTREMITIES: +1 edema. No clubbing or cyanosis MUSCULOSKELETAL: No joint swelling. NEUROLOGIC: Awake, alert, oriented times three. No focal deficit. LYMPHATIC: No lymph nodes palpable. SKIN: Intact. LABS: WBC 14.27, hgb 9.3, hct 27.9, plt count 305, sodium 136, potassium 3.1, chloride 102, bicarb 23, BUN 11, creatinine 0.62 and glucose 86. ASSESSMENT: 1. Questionable small bowel obstruction 2. Obstipation, having small bowel movements 3. Anterior abdominal wall abscess with history of diverticular abscess with abscess drainage with fistula formation 4. Hypothyroidism 5. Dizziness 6. Anxiety disorder PLAN: 1. Continue Lovenox 2. Omnicef 3. IV fluids 4. Replace the Potassium TIME SPENT: More than 35 minutes MTDD
--- NOTE | 2017-08-08 09:57 | PN ---
DATE OF SERVICE: 08/05/17 SUBJECTIVE: The patient is admitted with large bowel obstruction, obstipation and constipation. The patient has been having bowel movements and having some diarrhea, tolerating clear liquid diet. No nausea or vomiting. REVIEW OF SYSTEMS: CONSTITUTIONAL: No fever, no chills. HEENT: Normal. ENDOCRINE: No weight gain, no weight loss. CVS: No angina symptoms. No CHF symptoms. No palpitations. No atypical chest pain for CAD. No shortness of breath. No PND, no orthopnea. RESPIRATORY: No cough, no hemoptysis. GI: Some diarrhea. No nausea, no vomiting. No abdominal pain. : No hematuria. No polyuria. MUSCULOSKELETAL: No joint swelling. PSYCHIATRIC: Not anxious. No depression. No suicidal thoughts. No homicidal thoughts. SKIN: Intact. No rash. PHYSICAL EXAMINATION: V/S: BP 115/68, respiratory rate 20, heart rate 75, temperature 98.2, saturation 98 on 2L. HEENT: Normocephalic, atraumatic. Mucosa dry. Pallor positive. No icterus. NECK: Supple. No JVD, no carotid bruit. No lymphadenopathy. LUNGS: Decreased entry. Basilar crackles. HEART: S1, S2 normal. No S3. No murmur, gallop or regurgitation. ABDOMEN: Abdominal wall - the patient has a fistula - as of today it is not draining any pus. Soft, nontender. Bowel sounds hyperactive. No rigidity. No rebound or guarding. No CVA tenderness. EXTREMITIES: 1+ pedal edema. No clubbing or cyanosis MUSCULOSKELETAL: No joint swelling. NEUROLOGIC: Awake, alert, oriented times three. No focal deficit. LYMPHATIC: No lymph nodes palpable. SKIN: Intact and dry. LABS: White count 14.27, hemoglobin 9.2, hematocrit 27.9, platelet count 305. Sodium 136, potassium 3.1, chloride 102, bicarb 23, BUN 11, creatinine 0.62. ASSESSMENT: 1. OBSTIPATION, DISTAL COLONIC OBSTRUCTION WITH A LOT OF STOOL BURDEN. 2. HYPOKALEMIA 3. BIBASILAR PNEUMONIA PER CT SCAN 4. HISTORY OF DIVERTICULITIS WITH COMPLICATED SURGERY AND FISTULA FORMATION WHICH IS NOT DRAINING ANY PUS NOW 5. DEPRESSION, ANXIETY PLAN: 1. Rocephin 1 gm daily 2. Lovenox for DT prophylaxis 3. Duonebs 4. Synthroid 5. Ativan 6. Will decrease IV fluids to 40 mL/hr 7. Daily I & O's 8. The patient's hemoglobin did drop from 12.3 to 9.2, most likely from hemodilution but will keep monitoring it. Now will give extra dose of potassium today for 3.1 potassium, replace. 9. Will get a KUB in the morning. 10. Up and about walking. 11. CT scan did show bibasilar pneumonia being treated with Rocephin 1 gm daily. TIME SPENT: More than 35 minutes MTDD
[2017-08-08 11:45] VITALS: BP 117/74; TEMP 98.2
--- NOTE | 2017-08-13 22:37 | PCM.HOSP ---
- Initial Hospital Care [id number] 70 Minutes Bedside ([id number]): 08/04 - Subsequent Care [id number] 35 Minutes per Day ([id number]): 08/05. 08/06. 08/07 - Hospital Discharge [id number] More than 30 Minutes ([id number]): 08/08
--- NOTE | 2017-08-16 14:25 | DS ---
DATE OF SERVICE: 08/08/17 FINAL DIAGNOSIS: 1. Colic stricture with diverticulitis 2. Obstipation 3. Moderate to severe stool burden 4. History of diverticulitis with the status post drainage of the abscess with the fistula formation on the anterior abdominal wall. 5. Non-compliance with the treatment 6. COPD 7. Hypothyroidism 8. Dependant leg edema 9. Dizziness 10.Osteoarthritis 11.DJD spine DISCHARGE INSTRUCTIONS: Transfer the patient to [facility] for the higher care. Continue current medications. MEDICATIONS AT DISCHARGE: Breathing treatments Potassium Rocephin 1 gram daily IV fluids Lovenox for the DVT prophylaxis DUO NEBS DIET INSTRUCTIONS: NPO DISEASE SPECIFIC EDUCATION: Colon stricture and needing for the colonoscopy or questionable surgery been discussed with the patient and verbalized understanding. HOSPITAL COURSE: Olive Hansen who is 67 year old female with a complicated history of diverticulitis and abscess formation which needed the drainage and has fistula development. The patient came to the emergency room with being constipated for 4 -[address] abdomen showed the questionable colonic obstruction but with the moderate stool burden. At that time the patient was initially admitted to the [facility] for treating the obstipation and constipation with the questionable colonic obstruction. The patient was given a Mag Citrate and the patient started having the mild to moderate bowel movements. Meanwhile the WBC was getting better and tolerating the food. Did not have any problems. D-Dimer was high so CT chest with the PE protocol was done and did not show any PE. IV fluids were given, Rocephin 1gram was started and DUO NEBS were given. The patient did tolerate the diet well, slowly starting having a very small amount of the stools which is being monitored. The patient still kept having the left upper quadrant discomfort and says that CT scan repeat which again diverticulitis with questionable stricture. At that time we talked to the Dr. Issa at the [facility] as patient may need a colonoscopy or some kind of surgical procedure when she is being transferred. It was courteous enough for Dr. Issa to accept the patient. TIME SPENT: MORE THAN 60 MINUTES MTDD
== END 2017-08-08 10:20 | disposition short-term general hospital (02) | DRG 388 ==
LOC: ED 20:57 → MEDSURG B 08-04 01:45
PROVIDERS: ADMIT Emergency Medicine; ATTEND Emergency Medicine
DX: K56.699 Other intestinal obstruction unspecified as to partial versus complete obstruction (principal); J18.9 Pneumonia, unspecified organism; K57.32 Diverticulitis of large intestine without perforation or abscess without bleeding; K63.2 Fistula of intestine; L02.211 Cutaneous abscess of abdominal wall; K59.00 Constipation, unspecified; R11.0 Nausea; R06.02 Shortness of breath; R79.1 Abnormal coagulation profile; R10.12 Left upper quadrant pain; R10.812 Left upper quadrant abdominal tenderness; R60.0 Localized edema; R42 Dizziness and giddiness; E11.9 Type 2 diabetes mellitus without complications; I50.9 Heart failure, unspecified; J44.9 Chronic obstructive pulmonary disease, unspecified; E03.9 Hypothyroidism, unspecified; E87.6 Hypokalemia; F41.8 Other specified anxiety disorders; F17.210 Nicotine dependence, cigarettes, uncomplicated; M19.90 Unspecified osteoarthritis, unspecified site; M47.9 Spondylosis, unspecified; Z90.49 Acquired absence of other specified parts of digestive tract; Z79.899 Other long term (current) drug therapy; Z98.890 Other specified postprocedural states; Z91.19 Patient's noncompliance with other medical treatment and regimen
CPT/HCPCS: 36415; 80053; 82803; 85007; 85025; 85379; 87070; 87186; 93005; 93010; 94640; 99284

== ENCOUNTER 2017-08-08 10:21 | Outpatient (CLI) | payer OTHER ==
[2012-10-30 01:27] VITALS: TEMP 98.6
== END 2017-08-08 10:22 | disposition short-term general hospital (02) ==
LOC: AMBL 10:21
PROVIDERS: ATTEND Internal Medicine
DX: K59.00 Constipation, unspecified (principal); R10.9 Unspecified abdominal pain

== ENCOUNTER 2017-12-27 15:53 | Outpatient (CLI) | payer OTHER ==
[2012-10-30 01:27] VITALS: TEMP 98.6
== END 2017-12-27 15:54 | disposition home or self-care (01) ==
LOC: RHC-LAB 15:53
PROVIDERS: ATTEND Emergency Medicine
DX: E78.5 Hyperlipidemia, unspecified (principal); I10 Essential (primary) hypertension
CPT/HCPCS: 36415; 80053; 80061; 84443; 85025

== ENCOUNTER 2018-03-13 16:34 | Outpatient (CLI) ==
[2012-10-30 01:27] VITALS: TEMP 98.6
[2018-01-14 08:32] VITALS: BMI 27.8
== END 2018-03-13 16:35 | disposition home or self-care (01) ==
LOC: RHC-LAB 16:34
PROVIDERS: ATTEND Nurse Practitioner Family
DX: J44.9 Chronic obstructive pulmonary disease, unspecified (principal); I10 Essential (primary) hypertension; E03.9 Hypothyroidism, unspecified
CPT/HCPCS: 36415; 80053; 84443; 85025

== ENCOUNTER 2018-05-23 18:16 | Emergency (ER) ==
[2018-05-23 18:29] VITALS: BP 180/93; TEMP 98.4; BMI 26.5
--- NOTE | 2018-05-23 19:16 | ED.PDOC ---
General ED Provider: Dr. KARLY POLLOCK Chief Complaint: Respiratory Complaint Stated Complaint: Patient is a 68 year old Patient who comes to the ER and states that she has copd exaceration and that she has been short of breath with cough for 3 days. Also c/o pain to posterior left ribs when she inhales. c/o cough productive of pale yellow phlegm. Denies any Trauma. Uses her hand inhailer. Time Seen by Physician: 19:15 Mode of Arrival: Walk-In Information Source: Patient Exam Limitations: No limitations Primary Care Provider: NANY ALSTON Nursing and Triage Documentation Reviewed and Agree: Yes Does patient meet sepsis criteria?: No System Inflammatory Response Syndrome: Not Applicable Sepsis Protocol: For patient's 13 years and over: Temp is 96.8 and below OR 101 and greater Pulse >90 BPM Resp >20/minute Acutely Altered Mental Status Are patient's symptoms suggestive of a new infection, such as: -Pneumonia -Skin, Soft Tissue -Endocarditis -UTI -Bone, Joint Infection -Implantable Device -Acute Abdominal Infection -Wound Infection -Meningitis -Blood Stream Catheter Infection -Unknown Review of Systems - Review Of Systems Constitutional: Reports: No symptoms Eyes: Reports: No symptoms Ears, Nose, Mouth, Throat: Reports: No symptoms Respiratory: Reports: Cough, Short of air. Denies: Wheezing Cardiac: Reports: No symptoms GI: Reports: No symptoms Musculoskeletal: Reports: Back pain Neurological: Reports: Anxiety Endocrine: Reports: No symptoms Hematologic/Lymphatic: Reports: No symptoms All Other Systems: Reviewed and Negative Past Medical History - Past Medical History Previously Healthy: Yes Endocrine: Reports: DM 2, Hypothyroid, Dyslipidemia Cardiovascular: Reports: CAD, Hypertension, CHF Respiratory: Reports: COPD, Pneumonia Hematological: Reports: None Gastrointestinal: Reports: Diverticulitis Genitourinary: Reports: None Neuro/Psych: Reports: None Musculoskeletal: Reports: Arthritis, Back Pain Cancer: Reports: None Last Menstrual Period: n/a Other Pertinent Past Medical History: htn thy chol copd diverticulitis, PNA c- section - Surgical History General Surgical History: Reports: , Other (colostomy ) - Family History Family History: Reports: Unknown - Social History Smoking Status: Former smoker Hx Substance Use: No Alcohol Screening: None Physical Exam - Physical Exam Appearance: Well-appearing Eyes: JM, EOMI, Conjunctiva clear Neck: Supple Respiratory: Breath sounds diminished Cardiovascular: RRR, Pulses normal, No rub, No murmur GI/: Soft, Nontender, No masses, Bowel sounds normal, No Organomegaly Musculoskeletal: Normal strength, ROM intact, No edema, No calf tenderness Skin: Warm Neurological: Sensation intact, Alert, Oriented Psychiatric: Anxious Critical Care Note - Critical Care Note Total Time (mins): 0 Comments: Abg done @ 19:45 on 2 lpm bnc: PH 7.441, PCO2 43.9, PaO2 109, BE 6, HCO3 29.9, TCO2 31, SaO2 98%. Course - Course Hematology/Chemistry: 05/23/18 19:48 05/23/18 19:48 Orders, Labs, Meds: Lab Review 05/23/18 05/23/18 05/23/18 19:48 19:48 19:48 WBC 8.67 RBC 4.03 L Hgb 12.2 Hct 37.9 MCV 94.0 MCH 30.3 MCHC 32.2 RDW Coeff of [place] 13.7 Plt Count 255 Immature Gran % (Auto) 0.2 Neut % (Auto) 69.3 Lymph % (Auto) 16.3 [place] % (Auto) 6.6 Eos % (Auto) 7.0 Baso % (Auto) 0.6 Immature Gran # (Auto) 0.0 Neut # (Auto) 6.0 Lymph # (Auto) 1.4 [place] # (Auto) 0.6 Eos # (Auto) 0.6 Baso # (Auto) 0.1 Sodium 136.1 Potassium 3.94 Chloride 97.4 L Carbon Dioxide 32.5 H Anion Gap 10.14 BUN 9.0 Creatinine 0.79 Estimated GFR (MDRD) 72.00 BUN/Creatinine Ratio 11.39 Glucose 101.1 Lactic Acid 1.48 Calcium 9.32 Total Bilirubin 0.52 AST 15.9 ALT 15.1 Alkaline Phosphatase 79.0 Total Creatine Kinase 70.6 Troponin I < 0.012 Total Protein 6.82 Albumin 3.92 Globulin 2.90 Albumin/Globulin Ratio 1.35 Procalcitonin Influ A Molecular Assay Influ B Molecular Assay 05/23/18 05/23/18 19:48 20:20 WBC RBC Hgb Hct MCV MCH MCHC RDW Coeff of [place] Plt Count Immature Gran % (Auto) Neut % (Auto) Lymph % (Auto) [place] % (Auto) Eos % (Auto) Baso % (Auto) Immature Gran # (Auto) Neut # (Auto) Lymph # (Auto) [place] # (Auto) Eos # (Auto) Baso # (Auto) Sodium Potassium Chloride Carbon Dioxide Anion Gap BUN Creatinine Estimated GFR (MDRD) BUN/Creatinine Ratio Glucose Lactic Acid Calcium Total Bilirubin AST ALT Alkaline Phosphatase Total Creatine Kinase Troponin I Total Protein Albumin Globulin Albumin/Globulin Ratio Procalcitonin 0.05 Influ A Molecular Assay Negative by naat Influ B Molecular Assay Negative by naat Orders Category Date Time Status ABG DRAW REQUEST Stat CARDIO 05/23/18 19:27 Completed EKG-(ED ONLY) Stat CARDIO 05/23/18 19:25 Completed NEBULIZER TREATMENT Stat CARDIO 05/23/18 19:27 Completed BLOOD CULTURE (ED ONLY) Stat LAB 05/23/18 19:48 Results CBC W/ AUTO DIFF Stat LAB 05/23/18 19:48 Completed COMPREHENSIVE METABOLIC PANEL Stat LAB 05/23/18 19:48 Completed CREATINE KINASE Stat LAB 05/23/18 19:48 Completed FLU A/B MOLECULAR Stat LAB 05/23/18 20:20 Completed LACTIC ACID Stat LAB 05/23/18 19:48 Completed MOLECULAR GROUP A STREP Stat LAB 05/23/18 20:20 Completed PROCALCITONIN Stat LAB 05/23/18 19:48 Completed TROPONIN I Stat LAB 05/23/18 19:48 Completed 0.9 % Sodium Chloride [Saline Flush] MEDS 05/23/18 19:24 Discontinued 1 syr IVF PRN PRN Ipratropium/Albuterol Neb [Duoneb] MEDS 05/23/18 19:24 Discontinued 1 vial NEB ONCE STA Methylprednisolone Sod Succ/Pf [Solu-Medrol 125 mg] MEDS 05/23/18 19:33 Discontinued 125 [address] IVP ONCE STA CT CHEST W/O CONTRAST Stat RADS 05/23/18 19:28 Completed Medications Discontinued Medications Generic Name Dose Route Start Last Admin Trade Name Freq PRN Reason Stop Dose Admin Albuterol/Ipratropium 1 vial 05/23/18 19:24 05/23/18 20:20 Duoneb NEB 05/23/18 19:25 1 vial ONCE STA Administration Methylprednisolone Sodium Succinate 125 mg 05/23/18 19:33 05/23/18 19:55 Solu-Medrol 125 Mg IVP 05/23/18 19:34 125 mg ONCE STA Administration Sodium Chloride 1 syr 05/23/18 19:24 05/23/18 19:55 Saline Flush IVF 1 syr PRN PRN Administration To flush IV Vital Signs: Temp Pulse Resp BP Pulse Ox 05/23/18 18:18 98.4 F 87 24 180/93 H 96 Departure - Departure Time of Disposition: 20:50 Disposition: HOME SELF-CARE Discharge Problem: Bronchitis Instructions: Chronic Bronchitis (ED) Condition: Stable Pt referred to PMD for follow-up: Yes IPMP verified?: No Additional Instructions: Follow up with PCP in 3 days take Medications as prescribed Prescriptions: Doxycycline Hyclate 100 mg PO BID #14 capsule Prednisone 20 mg PO DAILYWM #5 tablet Allergies/Adverse Reactions: Allergies No Known Allergies Allergy (Uncoded 05/23/18 18:23) Home Medications: Ambulatory Orders Albuterol Sulfate [Ventolin Hfa] 2 puff IH Q4HR PRN 02/17/16 Meclizine HCl 50 mg PO DAILY 08/07/17 Albuterol Sulfate 0.083% Neb [Albuterol 0.083% Neb] 1 vial NEB RTQ4H PRN Doxycycline Hyclate 100 mg PO BID #14 capsule 05/23/18 Prednisone 20 mg PO DAILYWM #5 tablet 05/23/18 Disposition Discussed With: Patient
[2018-05-23] MEDS ORDERED: DUONEB NEB STA (19:24)
[2018-05-23] MEDS ORDERED: SOLU-MEDROL 125 MG IVP STA (19:33)
--- NOTE | 2018-05-23 20:45 | CT ---
EXAM: CT of the chest without contrast. HISTORY: Pain. COMPARISON: 08/03/2017. TECHNIQUE: Contiguous axial images were obtained from lung apices to the upper abdomen. Study was p erformed without contrast. Sagittal and coronal reformats were reviewed. FINDINGS: The lung windows show no definite lobar consolidation or effusion. Linear opacities seen in the lingula which has appearance of atelectasis or fibrosis. There is subpleural ground-glass opa [place] in the superior segment of the left lower lobe. No definite lobar consolidation. Calcified gra nulomas are seen. No suspicious nodules are identified. The airways are patent. There is no pleura l thickening or effusion. Calcified mediastinal lymph nodes seen. Heavy coronary artery calcificati ons are seen involving the left, right and circumflex arteries. Aortic valve is mildly calcified. Limited views of the upper abdomen are unremarkable. There is a right-sided colostomy. IMPRESSION: 1. No acute consolidation or effusion. 2. Subpleural ground-glass opacity in the superior segment left lower lobe may be due to focal infla mmatory process. Recommend short-term follow-up if clinically indicated. 3. Tri-vessel coronary artery calcifications.
== END 2018-05-23 21:00 | disposition home or self-care (01) ==
LOC: ED 18:16
DX: J40 Bronchitis, not specified as acute or chronic (principal); J44.9 Chronic obstructive pulmonary disease, unspecified; I10 Essential (primary) hypertension; R06.02 Shortness of breath; E11.9 Type 2 diabetes mellitus without complications; I25.10 Atherosclerotic heart disease of native coronary artery without angina pectoris; E78.5 Hyperlipidemia, unspecified; E03.9 Hypothyroidism, unspecified; Z87.19 Personal history of other diseases of the digestive system
CPT/HCPCS: 36415; 80053; 82550; 83605; 84145; 84484; 85025; 87040; 87502; 87651; 93005; 93010; 94640; 96374; 96375; 99283

== ENCOUNTER 2018-09-18 15:24 | Outpatient (CLI) | payer OTHER ==
[2012-10-30 01:27] VITALS: TEMP 98.6
== END 2018-09-18 15:25 | disposition home or self-care (01) ==
LOC: RHC-LAB 15:24
PROVIDERS: ATTEND Nurse Practitioner Family
DX: E55.9 Vitamin D deficiency, unspecified (principal); I10 Essential (primary) hypertension; E78.5 Hyperlipidemia, unspecified; E03.9 Hypothyroidism, unspecified
CPT/HCPCS: 36415; 80053; 80061; 82306; 84443; 85025

== ENCOUNTER 2019-02-20 14:56 | Inpatient (IN) ==
[2019-02-20] MEDS ORDERED: DUONEB NEB STA (15:03)
--- NOTE | 2019-02-20 15:58 | DI ---
EXAM: Single view of the chest. History: Short of breath Comparison: Chest radiograph 01/18/2018 Findings: Heart size is within normal limits. No focal consolidation. No appreciable pleural fluid and no pneumothorax. No acute osseous abnormalities. Calcified granuloma is seen within the right lower lobe. Impression: No acute cardiopulmonary process
[2019-02-20] MEDS ORDERED: POTASSIUM CHLORIDE 10 MEQ/100 ML PREMIX 10 MEQ/100 ML BAG IV STA (17:18)
[2019-02-20] MEDS ORDERED: K-DUR PO STA (17:19)
--- NOTE | 2019-02-20 18:35 | ED.PDOC ---
General ED Provider: Dr. MARY JANE PAEZ Chief Complaint: Shortness of Air Stated Complaint: S.O.B X 1 WEEK PROGREESIVELY WORSE ON HOME O2 AT ALL TIMES C/O COUGH AND S.O.B Time Seen by Physician: 15:00 Mode of Arrival: Stretcher Information Source: Patient and EMT Primary Care Provider: NANY ALSTON Nursing and Triage Documentation Reviewed and Agree: Yes Does patient meet sepsis criteria?: No System Inflammatory Response Syndrome: Not Applicable Sepsis Protocol: For patient's 13 years and over: Temp is 96.8 and below OR 101 and greater Pulse >90 BPM Resp >20/minute Acutely Altered Mental Status Are patient's symptoms suggestive of a new infection, such as: -Pneumonia -Skin, Soft Tissue -Endocarditis -UTI -Bone, Joint Infection -Implantable Device -Acute Abdominal Infection -Wound Infection -Meningitis -Blood Stream Catheter Infection -Unknown Respiratory Complaint Exam Respiratory Complaint/Exam Symptoms Are: Still present and Resolved Timing: Intermittent Initial Severity: Mild Current Severity: None Location: Nose, Throat and Chest Character: Reports Non-productive cough and Dry cough Aggravating: Reports None; Denies Weather and Deep breaths Alleviating: Reports Upright position and Spontaneous resolution; Denies Nasal suction and Steriods Associated Signs and Symptoms: Denies Dyspnea, Fever, Chills, Chest pain, Pleuritic chest pain, Wheezing, Hemoptysis, Dizziness, Nasal congestion, Hoarseness, Sinus discomfort, Vomiting and Sore throat Related History: Denies Allergic reaction History of Healthcare-Acquired Pneumonia: No Related Surgical History: Denies Tracheostomy, Valve Replacement, Defibrillator and Thoracotomy Pulmonary Embolism Risk Factors: Bedrest Cardiac Risk Factors: Reports None Pseudomonas Risk Factors: Reports None Tuberculosis Risk Factors: Reports None Status Asthmaticus Risk Factors: Reports None Home Oxygen Use: No Recent Stress Test: No Recent Echo/LV Function: No Current Antibiotic Use: No Current Asthma Medication Use: No Respiratory Distress: None Inadequate Respiratory Effort: No Dysphagia Present: No Stridor Present: No JVD Present: No Accessory Muscle Use: No Retractions: Not Present Diminished Breath Sounds: No Sinus Tenderness: None Grunting Respirations: No Kussmaul Respirations: No Differential Diagnoses: Pulmonary Edema, COPD Exacerbation, Pneumonia, Pulmonary Embolism and Bronchiolitis Review of Systems Review Of Systems Constitutional: Reports No symptoms Eyes: Reports No symptoms Ears, Nose, Mouth, Throat: Reports No symptoms Respiratory: Reports Cough and Short of air Cardiac: Reports No symptoms GI: Reports No symptoms : Reports No symptoms Musculoskeletal: Reports No symptoms Skin: Reports No symptoms Neurological: Reports No symptoms Endocrine: Reports No symptoms Hematologic/Lymphatic: Reports No symptoms All Other Systems: Reviewed and Negative [facility] Social History (Updated 02/20/19 @ 21:37 by Marichuy Martniez RN) Do you feel safe at home: Yes History of physical abuse: No Smoking and tobacco status: Current every day smoker Tobacco type: cigarettes Substance use type: does not use Physical Exam Physical Exam Appearance: Ill-appearing Ill-appearing: None Pain Distress: None Eyes: JM, EOMI and Conjunctiva clear ENT: Ears normal, Nose normal and Oropharynx normal Respiratory: Rhonchi and Wheezes Cardiovascular: RRR, Pulses normal, No rub and No murmur GI/: Soft, Nontender, No masses, Bowel sounds normal and No Organomegaly Musculoskeletal: Normal strength, ROM intact, No edema and No calf tenderness Skin: Warm, Dry and Normal color Neurological: Sensation intact, Motor intact, Reflexes intact, Cranial nerves intact, Alert and Oriented Psychiatric: Affect appropriate and Mood appropriate Interpretation Radiology Interpretation Radiology Interpretation By: Radiologist Radiology Results: No acute changes Re-Evaluation Re-Evaluation Time of Re-Evaluation: 16:00 Pain Level: 0 Appearance: NAD Lungs: Clear Skin: Warm and Dry Neuro: Alert and Oriented X3 CV: RRR Physician Notification Case Discussed Physician Notified: PMD Time of Notification: 19:00 Critical Care Note Critical Care Note Total Time (mins): 0 Course Course Hematology/Chemistry: 02/22/19 05:17 02/22/19 05:17 Orders, Labs, Meds: Lab Review 02/20/19 02/20/19 02/20/19 15:03 15:10 15:10 WBC RBC Hgb Hct MCV MCH MCHC RDW Coeff of [place] Plt Count Immature Gran % (Auto) Neut % (Auto) Lymph % (Auto) Terrell % (Auto) Eos % (Auto) Baso % (Auto) Immature Gran # (Auto) Neut # (Auto) Lymph # (Auto) Terrell # (Auto) Eos # (Auto) Baso # (Auto) D-Dimer (Manual) 623.18 Puncture Site Lbrach O2 Saturation 94.0 L ABG pH 7.436 ABG pCO2 56.6 H ABG pO2 73.0 L ABG HCO3 38.0 H ABG Total CO2 40 H ABG Base Excess 14 H O2 Delivery Device Nc Oxygen Liter Flow 2.50 Sodium 136.2 Potassium 2.99 L Chloride 90.8 L Carbon Dioxide 38.2 H Anion Gap 10.19 BUN 10.0 Creatinine 0.85 Estimated GFR (MDRD) 66.00 BUN/Creatinine Ratio 11.76 Glucose 112.5 H Calcium 8.89 Total Bilirubin 0.53 AST 20.6 ALT 17.7 Alkaline Phosphatase 78.5 Total Creatine Kinase 87.0 Troponin I < 0.012 Total Protein 6.86 Albumin 3.76 Globulin 3.10 Albumin/Globulin Ratio 1.21 Influ A Molecular Assay Influ B Molecular Assay 02/20/19 02/20/19 15:15 15:30 WBC 12.78 H RBC 3.79 L Hgb 11.6 L Hct 36.4 L MCV 96.0 MCH 30.6 MCHC 31.9 RDW Coeff of [place] 14.1 Plt Count 245 Immature Gran % (Auto) 0.4 Neut % (Auto) 73.7 Lymph % (Auto) 15.2 Terrell % (Auto) 7.0 Eos % (Auto) 3.3 Baso % (Auto) 0.4 Immature Gran # (Auto) 0.1 Neut # (Auto) 9.4 H Lymph # (Auto) 1.9 Terrell # (Auto) 0.9 Eos # (Auto) 0.4 Baso # (Auto) 0.1 D-Dimer (Manual) Puncture Site O2 Saturation ABG pH ABG pCO2 ABG pO2 ABG HCO3 ABG Total CO2 ABG Base Excess O2 Delivery Device Oxygen Liter Flow Sodium Potassium Chloride Carbon Dioxide Anion Gap BUN Creatinine Estimated GFR (MDRD) BUN/Creatinine Ratio Glucose Calcium Total Bilirubin AST ALT Alkaline Phosphatase Total Creatine Kinase Troponin I Total Protein Albumin Globulin Albumin/Globulin Ratio Influ A Molecular Assay Negative by naat Influ B Molecular Assay Negative by naat Orders Category Date Time Status ABG DRAW REQUEST Stat CARDIO 02/20/19 15:03 Completed EKG-(ED ONLY) Stat CARDIO 02/20/19 15:03 Completed NEBULIZER TREATMENT Stat CARDIO 02/20/19 15:04 Completed ACTIVITY .Early Mobilization for VTE Prevention CARE 02/20/19 19:25 Active INTAKE & OUTPUT Q8HR CARE 02/20/19 19:26 Active NPO REMINDER: IMAGING ONCE CARE 02/20/19 17:20 Completed VITAL SIGNS Q8HR CARE 02/20/19 19:26 Active REGULAR DIET DIETARY 02/20/19 Breakfast Ordered ABG Stat LAB 02/20/19 15:03 Completed BASIC METABOLIC PANEL DAILY@0600 LAB 02/21/19 07:35 Completed BASIC METABOLIC PANEL DAILY@0600 LAB 02/22/19 05:17 Completed CBC W/ AUTO DIFF DAILY@0600 LAB 02/21/19 07:35 Completed CBC W/ AUTO DIFF DAILY@0600 LAB 02/22/19 05:17 Completed CBC W/ AUTO DIFF Stat LAB 02/20/19 15:30 Completed COMPREHENSIVE METABOLIC PANEL Stat LAB 02/20/19 15:10 Completed CREATINE KINASE Stat LAB 02/20/19 15:10 Completed D-DIMER Stat LAB 02/20/19 15:10 Completed FLU A/B MOLECULAR Stat LAB 02/20/19 15:15 Completed TROPONIN I Stat LAB 02/20/19 15:10 Completed Enoxaparin Sodium [Lovenox] MEDS 02/21/19 09:00 Active 40 mg SUBCUT DAILY Ipratropium/Albuterol Neb [Duoneb] MEDS 02/20/19 15:03 Discontinued 3 ml NEB ONCE STA Potassium Chloride [K-Dur] MEDS 02/20/19 17:19 Discontinued 40 meq PO ONCE STA Potassium Chloride [Potassium Chloride 10 Meq/100 ml MEDS 02/20/19 17:18 Discontinued Premix] 10 meq in 100 ml IV ONCE Potassium Chloride in 0.9%NaCl [Sodium Chloride 0.9%- MEDS 02/20/19 19:30 Active KCl 20 Meq] 1,000 ml IV 75 mls/hr RESUSCITATION STATUS Routine OTHERS 02/20/19 19:25 Completed CHEST, 1V AP ONLY Stat RADS 02/20/19 15:[address] CHEST PE PROTOCOL Stat RADS 02/20/19 17:20 Completed Medications Generic Name Dose Route Start Last Admin Trade Name Freq PRN Reason Stop Dose Admin Albuterol/Ipratropium 3 ml 02/21/19 20:00 02/22/19 04:55 Duoneb NEB 3 ml RTQID IBIS Administration Budesonide/Formoterol Fumarate 2 puff 02/21/19 09:00 02/21/19 20:23 Symbicort 160-4.5 Mcg Inhaler IH 2 puff BID IBIS Administration Enoxaparin Sodium 40 mg 02/21/19 09:00 02/21/19 09:53 Lovenox SUBCUT 40 mg DAILY IBIS Administration Escitalopram Oxalate 20 mg 02/21/19 09:00 02/21/19 09:52 Lexapro PO 20 mg DAILY IBIS Administration Hydrochlorothiazide 25 mg 02/21/19 09:00 02/21/19 09:52 Hydrochlorothiazide PO 25 mg DAILY IBIS Administration Hydrocortisone Sodium Succinate 125 mg 02/20/19 22:00 02/22/19 07:29 Solu-Cortef 250 Mg IVP 125 mg Q8H IBIS Administration Potassium Chloride/Sodium Chloride 1,000 mls @ 75 mls/hr 02/20/19 19:30 02/22/19 04:57 Sodium Chloride 0.9%-Kcl 20 Meq IV 75 mls/hr .[id number] IBIS Administration CEFTRIAXONE/D5W 2 GM PREMIX 2 gm in 50 mls @ 75 mls/hr 02/20/19 22:00 02/21/19 22:00 Rocephin 2 Gm/50 Ml D5w IV 02/23/19 21:59 75 mls/hr BEDTIME IBIS Administration Azithromycin 500 mg/ Sodium 250 mls @ 125 mls/hr 02/20/19 22:00 02/21/19 20:23 Chloride IV 02/23/19 21:59 125 mls/hr BEDTIME IBIS Administration Levothyroxine Sodium 75 mcg 02/22/19 06:30 02/22/19 05:43 Synthroid PO 75 mcg QDAC IBIS Administration Lorazepam 0.5 mg 02/21/19 08:37 02/21/19 20:31 Ativan PO 0.5 mg BEDTIME PRN Administration Anxiety Non-Formulary Medication 10 mg 02/21/19 08:37 Melatonin PO BEDTIME PRN sleep Nystatin 1 applic 02/21/19 21:00 02/21/19 22:18 Nystop Powder TP 1 applic TID IBIS Administration Potassium Chloride 10 meq 02/21/19 09:00 02/21/19 20:23 Micro-K Cap PO 10 meq BID IBIS Administration Discontinued Medications Generic Name Dose Route Start Last Admin Trade Name Freq PRN Reason Stop Dose Admin Albuterol/Ipratropium 3 ml 02/20/19 15:03 02/20/19 15:25 Duoneb NEB 02/20/19 15:04 3 ml ONCE STA Administration Albuterol/Ipratropium 3 ml 02/21/19 12:00 02/21/19 12:10 Duoneb NEB 3 ml RTQ6H IBIS Administration Potassium Chloride 10 meq in 100 mls @ 100 mls/hr 02/20/19 17:18 02/20/19 18:43 Potassium Chloride 10 Meq/100 Ml Premix IV 02/20/19 18:17 100 mls/hr ONCE STA Administration Potassium Chloride 40 meq 02/20/19 17:19 02/20/19 18:40 K-Dur PO 02/20/19 17:20 40 meq ONCE STA Administration Vital Signs: Temp Pulse Resp BP Pulse Ox 02/20/19 14:56 99 F 98 H 30 H 124/76 94 L Discharge Plan Discharge Patient Disposition: ADMITTED INPATIENT Discharge Problem: COPD exacerbation, Acute hypokalemia ED Provider: KARLY POLLOCK Condition: Good Discharge Date/Time: 02/20/19 21:20
--- NOTE | 2019-02-20 19:07 | CT ---
Exam: CT angiography of the chest with intravenous contrast and 3-D MIP reformatted imaging. PE pro tocol Comparison: CT chest performed 05/23/2018. Reason for exam: Short of air. FINDINGS: No pneumothorax, pleural effusion, or focal airspace consolidation. Patchy ground-glass o pacities are seen in the left upper, left lower and right lower lobes. No saddle, large main, or large proximal emboli are seen. Evaluation of the distal pulmonary arteria l vasculature is limited secondary to timing of the contrast bolus. There are prominent appearing ly mph nodes seen in the axilla with a rounded appearance measuring up to 9 mm that do not meet radiogra the medical centerc size criteria for enlargement. The aorta appears normal in course and caliber. The heart is not enlarged. Impression: 1. No saddle, large main or large proximal emboli are seen. Evaluation of the distal and mid pulmon agustin arterial vasculature is limited secondary to timing of the contrast bolus. If clinical concern e xists, VQ imaging could be performed. 2. Patchy ground-glass airspace opacities in the left upper, left lower and right lower lobes likely inflammation or early infection. Consider follow up imaging to document resolution.
[2019-02-20] MEDS ORDERED: SOLU-CORTEF 100 MG 125 MG in SODIUM CHLORIDE 100 ML IV SCH (22:00)
[2019-02-20] MEDS: SODIUM CHLORIDE 0.9%-KCL 20 MEQ 1,000 ML IV SCH (22:07)
[2019-02-20] MEDS: SOLU-CORTEF 250 MG IVP SCH (22:09)
[2019-02-20] MEDS: ROCEPHIN 2 GM/50 ML D5W 2 GM/50 ML BAG IV SCH (22:13)
[2019-02-20 22:20] VITALS: BMI 36.3
[2019-02-20] MEDS: ZITHROMAX 500 MG in SODIUM CHLORIDE 250 ML IV SCH (23:04)
[2019-02-21] MEDS ORDERED: SOLU-MEDROL 125 MG IVP SCH (05:00)
[2019-02-21] MEDS: SOLU-CORTEF 250 MG IVP SCH ×3 (05:04→22:22)
[2019-02-21] MEDS: SYMBICORT 160-4.5 MCG INHALER IH SCH ×2 (09:52→20:23)
[2019-02-21] MEDS: LEXAPRO PO SCH (09:52)
[2019-02-21] MEDS: HYDROCHLOROTHIAZIDE PO SCH (09:52)
[2019-02-21] MEDS: MICRO-K CAP PO SCH ×2 (09:52→20:23)
[2019-02-21] MEDS: LOVENOX SUBCUT SCH (09:53)
[2019-02-21] MEDS ORDERED: DUONEB NEB SCH (12:00)
[2019-02-21] MEDS: SODIUM CHLORIDE 0.9%-KCL 20 MEQ 1,000 ML IV SCH (14:27)
[2019-02-21] MEDS: ZITHROMAX 500 MG in SODIUM CHLORIDE 250 ML IV SCH (20:23)
[2019-02-21] MEDS: ATIVAN PO PRN (20:31)
[2019-02-21] MEDS: ROCEPHIN 2 GM/50 ML D5W 2 GM/50 ML BAG IV SCH (22:00)
[2019-02-21] MEDS: NYSTOP POWDER TP SCH (22:18)
[2019-02-21] MEDS: DUONEB NEB SCH (22:45)
[2019-02-22] MEDS: DUONEB NEB SCH ×4 (04:55→20:28)
[2019-02-22] MEDS: SODIUM CHLORIDE 0.9%-KCL 20 MEQ 1,000 ML IV SCH ×2 (04:57→16:55)
[2019-02-22] MEDS: SYNTHROID PO SCH (05:43)
[2019-02-22] MEDS: SOLU-CORTEF 250 MG IVP SCH ×3 (07:29→22:57)
[2019-02-22] MEDS: HYDROCHLOROTHIAZIDE PO SCH (09:41)
[2019-02-22] MEDS: LEXAPRO PO SCH (09:42)
[2019-02-22] MEDS: LOVENOX SUBCUT SCH (09:43)
[2019-02-22] MEDS: NYSTOP POWDER TP SCH ×3 (09:46→22:57)
[2019-02-22] MEDS: MICRO-K CAP PO SCH ×2 (09:46→20:18)
[2019-02-22] MEDS: SYMBICORT 160-4.5 MCG INHALER IH SCH ×2 (09:51→22:56)
[2019-02-22] MEDS: ZITHROMAX 500 MG in SODIUM CHLORIDE 250 ML IV SCH (20:17)
[2019-02-22] MEDS: ATIVAN PO PRN (20:59)
[2019-02-23] MEDS: ROCEPHIN 2 GM/50 ML D5W 2 GM/50 ML BAG IV SCH ×2 (00:05→20:42)
[2019-02-23] MEDS: SOLU-CORTEF 250 MG IVP SCH ×3 (05:14→20:39)
[2019-02-23] MEDS: SYNTHROID PO SCH (05:51)
[2019-02-23] MEDS: DUONEB NEB SCH ×4 (05:56→19:30)
[2019-02-23] MEDS: SYMBICORT 160-4.5 MCG INHALER IH SCH ×2 (09:02→20:40)
[2019-02-23] MEDS: NYSTOP POWDER TP SCH ×3 (09:02→20:38)
[2019-02-23] MEDS: LOVENOX SUBCUT SCH (09:03)
[2019-02-23] MEDS: MICRO-K CAP PO SCH ×2 (09:03→20:38)
[2019-02-23] MEDS: HYDROCHLOROTHIAZIDE PO SCH (09:03)
[2019-02-23] MEDS: LEXAPRO PO SCH (09:03)
--- NOTE | 2019-02-23 10:21 | DI ---
EXAM: Chest PA and lateral HISTORY: Chronic obstructive pulmonary disease. COMPARRISON: 02/20/2019 FINDINGS: The heart is normal in size. Prominent epicardial fat pad at the left lung base is seen. Pulmonary vascularity is within normal limits. Minimal left basilar opacities are seen. No evidence of pleural effusion or pneumothorax is seen. Osseous structures are unremarkable. IMPRESSION: Minimal left basilar atelectasis versus early infiltrates.
[2019-02-23] MEDS: SODIUM CHLORIDE 0.9%-KCL 20 MEQ 1,000 ML IV SCH ×2 (13:11→13:15)
[2019-02-23] MEDS: ATIVAN PO PRN (20:41)
[2019-02-23] MEDS: ZITHROMAX 500 MG in SODIUM CHLORIDE 250 ML IV SCH (20:42)
[2019-02-24] MEDS: DUONEB NEB SCH ×3 (04:33→14:42)
[2019-02-24] MEDS: SODIUM CHLORIDE 0.9%-KCL 20 MEQ 1,000 ML IV SCH (04:40)
[2019-02-24] MEDS: SOLU-CORTEF 250 MG IVP SCH ×2 (05:44→12:48)
[2019-02-24] MEDS: SYNTHROID PO SCH (05:45)
[2019-02-24] MEDS: SYMBICORT 160-4.5 MCG INHALER IH SCH (09:23)
[2019-02-24] MEDS: LEXAPRO PO SCH (09:24)
[2019-02-24] MEDS: HYDROCHLOROTHIAZIDE PO SCH (09:24)
[2019-02-24] MEDS: MICRO-K CAP PO SCH (09:24)
[2019-02-24] MEDS: LOVENOX SUBCUT SCH (09:24)
[2019-02-24] MEDS: NYSTOP POWDER TP SCH ×2 (09:24→15:10)
[2019-02-24 13:48] VITALS: BP 132/64; TEMP 98.4
--- NOTE | 2019-03-04 13:31 | HP ---
DATE OF SERVICE: 02/20/19 CHIEF COMPLAINT: Shortness of breath, productive cough worse over the past one week. HISTORY OF PRESENT ILLNESS: Ms. Hansen is a pleasant established patient of Nancy Alec, who presented through the Emergency Department with a diagnosis of COPD exacerbation and hypokalemia. She reports a one week increasing shortness of breath with a minimal productive cough of yellow sputum. She does wear chronic 02. She has an established diagnosis of COPD. She did have some wheezing on admission. She did report to Dr. Santos that she is trying to quit smoking. She is down to approximately two cigarettes per day from two packs of cigarettes per day. She did have a CT of the chest done on admission that did show patchy airspace opacities in the left upper, left lower and right lower lobes likely infectious or early infectious. Consider followup imaging to document resolution. She did have labs completed on admission as well. Her white count on admission was elevated at 12.78. Her blood gases were completed. Her 02 saturation was 94%. Her pc02 was 56.6, pH 7.436, p02 73, HC03 was 38. C02 40 and her base excess was 14 on 2.5L/NC. She had a chemistry panel done as well. TSH was mildly abnormal at 0.215. Because of her ongoing symptoms and increasing shortness of breath, a decision was made to admit the patient for further evaluation and treatment of COPD exacerbation. PAST PERSONAL HISTORY: COPD on nasal oxygen History of respiratory failure Hypertension Hypothyroidism Dyslipidemia Anxiety and depression Diverticular disease with diverticulitis and an abscess surgically treated with a colostomy History of pneumonia Tubal ligation section FAMILY HISTORY: Unknown. She was adopted as a child. SOCIAL HISTORY: She is a , residing alone. She does have good support from her family. She continues to smoke approximately two cigarettes per day in spite of her COPD and respiratory failure. She denies any alcohol or ilicit drug use. MEDICATIONS: (CURRENT HOME) Albuterol nebulizers every four hours as needed Ventolin HFA 1-2 puffs every four to six hours as needed Symbicort two puffs inhalation twice a day Lexapro 20 mg daily Hydrochlorothiazide 25 mg daily Levothyroxine 75 mg daily Lorazepam 0.5 mg at bedtime as needed Meclizine 25 mg twice a day Melatonin 10 mg at bedtime Potassium Chloride 10 mEq twice a day ALLERGIES: NKDA REVIEW OF SYSTEMS: GENERAL: She denies any fever, chills, nightsweats or weight changes. HEENT: Denies headache, nasal drainage or sore throat, sinus symptoms or blurred vision. CARDIOVASCULAR: Denies any chest pain, irregular rhythm. No orthopnea. She does complain of chronic peripheral edema for which she takes Hydrochlorothiazide. RESPIRATORY: She does complain of an increase of shortness of breath in the past one week. Also complains of productive cough and congestion. She does have a history of COPD and chronic respiratory failure. GASTROINTESTINAL: No complaints of abdominal pain. She does have a history of diverticular disease. She does have a history of a colostomy. She does have a history of an abscess and rupture producing peritonitis in the past. GENITOURINARY: Denies any complaints of dysuria, hematuria, nocturia or urinary incontinence. MUSCULOSKELETAL: No reports of any unusual muscle pain, joint redness or swelling. NEUROLOGIC: No reports of dizziness, fatigue or neurological deficits. PSYCHIATRIC: Does have a history of depression. Denies any issues with suicidal thoughts or any homicidal thoughts. Denies any mood changes or anxiety. ENDOCRINE: No reports of any diabetes mellitus. Does have a history of hypothyroidism. No reports of increased thirst, urination, heat or cold intolerance. INTEGUMENTARY: No reports of rashes, lesions or skin changes. She does complain of severely dry skin to upper and lower extremities which is chronic for her. PHYSICAL EXAMINATION: GENERAL: She is alert and oriented. She is in no acute distress at this time. VITAL SIGNS: On admission, temperature 99, pulse rate 98, blood pressure 124/76, respiratory rate 30, 02 sat 94% on 2.5L/NC. On telemetry she is running sinus rhythm 79. Height 5'3", Weight 206 lbs. HEENT: Head normocephalic, atraumatic. Pupils equal/reactive to light. Conjunctivae clear. NECK: Supple. No lymphadenopathy or thyromegaly. No carotid bruits auscultated. CARDIOVASCULAR: S1, S2 regular rate and rhythm. Peripheral pulses are palpable. No JVD. She does have 1+ peripheral edema. Lower extremities are dry and scaly. LUNGS: Diminished bilaterally. She does have wheezing bilaterally. [address] at 2L/NC. ABDOMEN: She has a colostomy in the left lower quad, is pendulus. No significant tenderness. Bowel sounds are active. NEUROLOGIC: Cranial nerves 2-12 grossly intact without any overt neurological deficit. SKIN: Warm and dry. She does have scaly dry skin to upper and lower extremities. LABS AND DIAGNOSTIC TESTING: Have already been discussed. Her potassium was a bit low on admission and her chest x-ray and CT abnormalities have already been discussed. ASSESSMENT: 1. COPD EXACERBATION. 2. CHRONIC RESPIRATORY FAILURE. 3. ONGOING TOBACCO USE. THE PATIENT WAS ENCOURAGED AND DISCUSSED WITH REGARDING TOBACCO CESSATION. 4. HYPOKALEMIA. 5. HISTORY OF HYPERTENSION. 6. HISTORY OF HYPOTHYROIDISM. 7. HISTORY OF DIVERTICULITIS WITH ABSCESS WITH RUPTURE WITH COLOSTOMY. 8. HISTORY OF DYSLIPIDEMIA. 9. ANXIETY AND DEPRESSION. PLAN: 1. Potassium has been given for a replacement. 2. She has been started on IV antibiotics of Azithromycin and Ceftriaxone. 3. Nebulizers have been ordered as well as DVT prophylaxis. 4. Home medications have been ordered to be continued. 5. 02 has been continued. 6. Further orders and recommendations per Dr. Santos. TIME SPENT: GREATER THAN 65 MINUTES MTDD
--- NOTE | 2019-03-15 13:34 | DS ---
DATE OF SERVICE: 02/24/19 HISTORY OF PRESENT ILLNESS: 69 year old female who presented to the emergency room because of increasing shortness of breath in the last few days. The ER physician felt that she needed admission. Reason is acute exacerbation of chronic obstructive lung disease. The patient is still smoking. The patient on examination was alert, responsive, oriented and cooperative. She is dyspneic and tachypneic in spite of the nasal oxygen. The breath sounds are diminished both side with expiratory wheezing. Heart is audible with good tones. Sputum culture plus gram stain was obtained including a blood culture. This patient was then given 2 grams Rocephin initially and Zithromax 500mg intervenously daily and if not available oral 500mg daily for 3 days. The Rocephin is given 1 gram after the initially 2mg loading dose daily. The patient's temperature had been towards normal and the respiratory rate also had been in the upper normal. Her blood pressure was stable and the patient was eating mostly 75% of the meals. The wheezing has decreased remarkably and the patient the day before and on the day of discharge has practically no wheezing at all. The breath sounds are still diminished. The patient told me that she wants to go home because she feels much better. The patient indeed on examination is alert and feeling better and cheerful. Lungs has no wheezing, breath sounds are markedly diminished. Heart is normal sinus rhythm. Abdomen has no tenderness. The patient was instructed to follow with Nancy Michael and continue all her medications. FINAL DIAGNOSES: 1. COPD with acute exacerbation 2. Chronic respiratory failure 3. Chronic tobacco use and abuse, persistent 4. Mild hypokalemia 5. History of abdominal surgery secondary to diverticulitis with abscess with colostomy left lower quadrant. 6. History of hypertension 7. History of hyperthyroidism, elevated BMI PLAN: 1. This patient was advised to stop smoking Since medication whether two kinds or three kinds of medication does not change the prognosis. The only treatment that might change to the trajectory is change in lifestyle. This consists of stopping smoking, decreasing weight. The patient seems to be nonchalant about these advised. Her lungs problems are significant. The problem will probably continue to deteriorate without the patient's participation in the treatment of her problems. TIME SPENT: GREATER THAN 30 MINUTES MTDD
--- NOTE | 2019-03-21 09:26 | PN ---
DATE OF SERVICE: 02/21/19 SUBJECTIVE: The patient today is alert and oriented times four still with nasal oxygen. She claimed that she is some slightly better. Temperature 99 orally, pulse 91, blood pressure 124/71, respiratory rate 18 and no oxygen saturation recorded. Telemetry heart rate is 101, GA interval, EKG 0.14, EKG QRS 0.12. LUNGS: breath sounds are markedly diminished bilaterally. She also has some expiratory wheezing posteriorly. Wheezing is more in the upper posterior chest wall. ABDOMEN: Protuberant. Colostomy left lower quadrant. Bowel sounds are active. No remarkable tenderness in the abdomen. LOWER EXTREMITY: 1+ pitting edema. The patient did consume 75% of lunch. She did 20cc of fluid, 75% of dinner and 240cc of fluid. MTDD
--- NOTE | 2019-03-21 09:47 | PN ---
DATE OF SERVICE: 02/22/19 SUBJECTIVE: The patient continued to improve and she is afebrile today. Still using nasal oxygen. Her temperature is 98.1 at 2pm orally and pulse rate was 93, blood pressure 121/61, respiratory rate 20 and oxygen saturation is 100% on 2 liters of oxygen. She always had been on 2 liters of nasal canula. LUNGS: Breath sounds are still diminished with minimal wheezing expiratory. HEART: Audible with good tones. ABDOMEN: Nontender LOWER EXTREMITIES: No tenderness in the calf muscles. The patient denies any nausea or diarrhea and had been eating. The patient will be continued on the antibiotics. The patient is also receiving Methylprednisolone 125mg every 8 hours intervenously. She is also on Azithromycin 500mg IV, Ceftriaxone 2 grams initially and then 1 grams Q 24 hours. The patient's CBC showed slight to moderate increase in WBC probably secondary to the steroid injection every 8 hours. Chemistry shows electrolytes are normal., CO2 slightly elevated 33.6 this is lower than yesterday. Blood sugar is 164 probably secondary to steroid medications. Lungs have minimal wheeze in the left upper posterior chest urias. Breath sounds are still markedly diminished. The patient is feeling better. MTDD
--- NOTE | 2019-03-21 09:59 | PN ---
DATE OF SERVICE: 02/23/19 SUBJECTIVE: The patient is alert, oriented with movement of all extremities. She claimed to be feeling better. She did eat and has no diarrhea per colostomy. She denies any chest pain or abdominal pain. She has no problems swallowing food. Electrolytes today 02/23/19 is normal with slightly elevated CO2 30.5 much lower than yesterday. Her blood sugar is 144.7 and serum calcium is lower 8.30. The rest of the chemistries are unremarkable. The Procalcitonin is less than 0.05. No urinalysis done today. WBC 16,080. Moderate anemia 10.6 grams hgb, 34.6 hct. MCV slightly elevated 991, MCH is 30.4. She claims to be feeling much better and appetite is better and no abdominal pain, still with nasal oxygen. VITAL SIGNS: Temperature 98.3 orally, pulse rate 79, blood pressure 122/70, oxygen saturation 96 at 2 liters of nasal oxygen. LUNGS: still has moderately diminished breath sounds. Very Minimal expiratory wheeze on the right upper posterior chest field. No rales. HEART: Audible with good tones. ABDOMEN: Protuberant with no significant tenderness and no bruit. Bowel sounds are active. CONDITION: Improved. MTDD
== END 2019-02-24 16:22 | disposition home or self-care (01) | DRG 191 ==
LOC: ED 14:56 → MEDSURG A 19:59 → MEDSURG B 02-23 10:04
PROVIDERS: ADMIT General Practice; ATTEND General Practice
DX: F41.3 Other mixed anxiety disorders; E78.5 Hyperlipidemia, unspecified; J96.10 Chronic respiratory failure, unspecified whether with hypoxia or hypercapnia; Z72.0 Tobacco use; J44.1 Chronic obstructive pulmonary disease with (acute) exacerbation; R06.02 Shortness of breath; E87.6 Hypokalemia; I10 Essential (primary) hypertension; R05 Cough

== ENCOUNTER 2019-05-14 23:31 | Inpatient (IN) ==
[2019-05-14 23:40] VITALS: BMI 41.8
[2019-05-14] MEDS ORDERED: DUONEB NEB STA (23:51)
[2019-05-14] MEDS ORDERED: XOPENEX 1.25 MG NEB STA (23:51)
--- NOTE | 2019-05-15 00:45 | CT ---
EXAM: CT scan thorax without contrast HISTORY: Dyspnea COMPARISON: CT scan thorax 02/20/2019 FINDINGS: Contiguous axial images obtained through the thorax without contrast utilizing 5-mm collim ation. Sagittal and coronal reconstructions were imaged and reviewed.. The thoracic inlet is unremar kable. The heart is normal in size with coronary calcification. Calcified lymph nodes are seen in t he pretracheal right hilar region. Benign granulomatous changes at the right lung base.. There is s carring versus atelectasis within the inferior lingular segment.. Pleural-based nodular opacity [place] uring 1.5 cm medial right lung base may represent round atelectasis and merits follow-up.. There is a right upper quite colostomy.. Bone windows reveals no evidence of lytic or blastic lesions. IMPRESSION: Atelectasis versus scarring inferior lingular segment. Probable round atelectasis medial right lung base which merits follow-up. No consolidation or effusion. Coronary ASVD.
--- NOTE | 2019-05-15 00:48 | ED.PDOC ---
General ED Provider: Dr. JULIETA VILLEDA Chief Complaint: Extremity Swelling/Pain Stated Complaint: im sob and my legs are swelling Time Seen by Physician: 01:24 Mode of Arrival: Ambulance Information Source: Patient and EMT Primary Care Provider: NANY ALSTON APRN Nursing and Triage Documentation Reviewed and Agree: Yes Does patient meet sepsis criteria?: No System Inflammatory Response Syndrome: Not Applicable Sepsis Protocol: For patient's 13 years and over: Temp is 96.8 and below OR 101 and greater Pulse >90 BPM Resp >20/minute Acutely Altered Mental Status Are patient's symptoms suggestive of a new infection, such as: -Pneumonia -Skin, Soft Tissue -Endocarditis -UTI -Bone, Joint Infection -Implantable Device -Acute Abdominal Infection -Wound Infection -Meningitis -Blood Stream Catheter Infection -Unknown Respiratory Complaint Exam Respiratory Complaint/Exam Onset/Duration: 24 hrs Symptoms Are: Still present Timing: Constant Initial Severity: Mild Current Severity: Moderate Location: Chest Character: Reports Non-productive cough Aggravating: Reports None Alleviating: Reports Bronchodilators Associated Signs and Symptoms: Reports Wheezing and Calf swelling Status Asthmaticus Risk Factors: Reports None Home Oxygen Use: Yes Recent Stress Test: No Recent Echo/LV Function: No Current Antibiotic Use: No Current Asthma Medication Use: Yes Respiratory Distress: Mild Inadequate Respiratory Effort: No Dysphagia Present: No Stridor Present: No JVD Present: No Accessory Muscle Use: No Retractions: Not Present Diminished Breath Sounds: Yes Sinus Tenderness: None Grunting Respirations: No Kussmaul Respirations: No Differential Diagnoses: Pulmonary Edema Non-Traumatic Chest Pain Syncope: EKG Performed Review of Systems Review Of Systems Constitutional: Reports No symptoms Eyes: Reports No symptoms Ears, Nose, Mouth, Throat: Reports No symptoms Respiratory: Reports No symptoms Cardiac: Reports No symptoms GI: Reports No symptoms : Reports No symptoms Musculoskeletal: Reports No symptoms Skin: Reports No symptoms Neurological: Reports No symptoms Endocrine: Reports No symptoms Hematologic/Lymphatic: Reports No symptoms All Other Systems: Reviewed and Negative [facility] Medical History Chronic obstructive pulmonary disease Hypokalemia Hypothyroidism Obesity Social History Smoking and tobacco status: Current every day smoker Tobacco type: cigarettes Smoking cigarettes per day: 3 Substance use type: does not use Female Reproductive History Menstrual Hx Hysterectomy: No Hx Tubal Ligation: Yes Physical Exam Physical Exam Appearance: Well-appearing Ill-appearing: Mild Pain Distress: Mild Eyes: JM, EOMI and Conjunctiva clear ENT: Ears normal, Nose normal and Oropharynx normal Neck: Supple Respiratory: Airway patent, Breath sounds clear, Breath sounds equal and Breath sounds diminished Cardiovascular: RRR and Pulses normal GI/: Soft, Nontender, No masses and Bowel sounds normal Musculoskeletal: Normal strength, ROM intact, No edema, Limited ROM and Edema Skin: Warm, Dry and Normal color Neurological: Sensation intact Psychiatric: Affect appropriate and Mood appropriate Interpretation Radiology Interpretation Radiology Interpretation By: ED Physician Radiology Results: Negative Exam Interpreted: CT Scan EKG Interpretation Time of EKG #1: 01:23 Rate: Tachy Rhythm: Sinus Ectopy: None [place]: NL ST Segment: Normal Interpretation: sinus tachy Critical Care Note Critical Care Note Total Time (mins): 0 Course Course Hematology/Chemistry: 05/15/19 00:05 05/15/19 00:05 Orders, Labs, Meds: Lab Review 05/15/19 05/15/19 05/15/19 00:05 00:05 01:03 WBC 12.84 H RBC 3.70 L Hgb 10.9 L Hct 35.5 L MCV 95.9 MCH 29.5 MCHC 30.7 L RDW Coeff of [place] 15.9 H Plt Count 251 Immature Gran % (Auto) 0.3 Neut % (Auto) 72.9 Lymph % (Auto) 16.3 [place] % (Auto) 6.2 Eos % (Auto) 4.0 Baso % (Auto) 0.3 Immature Gran # (Auto) 0.0 Neut # (Auto) 9.4 H Lymph # (Auto) 2.1 [place] # (Auto) 0.8 Eos # (Auto) 0.5 Baso # (Auto) 0.0 Puncture Site Rbrac O2 Saturation 95.0 ABG pH 7.422 ABG pCO2 52.0 H ABG pO2 73.0 L ABG HCO3 33.9 H ABG Total CO2 35 H ABG Base Excess 9 H Cm Test + O2 Delivery Device Bnc Oxygen Liter Flow 3.00 FiO2 % 32.0 Sodium 137.6 Potassium 3.66 Chloride 94.8 L Carbon Dioxide 37.1 H Anion Gap 9.36 BUN 14.3 Creatinine 0.96 Estimated GFR (MDRD) 57.00 BUN/Creatinine Ratio 14.89 Glucose 139.0 H Calcium 9.01 Total Bilirubin 0.45 AST 20.0 ALT 13.9 Alkaline Phosphatase 89.7 NT-Pro-B Natriuret Pep 30.000 Total Protein 7.09 Albumin 3.83 Globulin 3.26 Albumin/Globulin Ratio 1.17 Orders Category Date Time Status ABG DRAW REQUEST Stat CARDIO 05/14/19 23:51 Completed EKG-(ED ONLY) Stat CARDIO 05/15/19 01:10 Completed NEBULIZER TREATMENT Stat CARDIO 05/14/19 23:51 Completed ED PROJECT SAFETY MANAGER APPLIED .ONCE EMERGENCY 05/14/19 23:50 Active ED IV/MEDIPORT/POWERPORT .ONCE EMERGENCY 05/14/19 23:51 Active ABG Stat LAB 05/14/19 23:51 Completed CBC W/ AUTO DIFF Stat LAB 05/14/19 23:50 Completed COMPREHENSIVE METABOLIC PANEL Stat LAB 05/14/19 23:50 Completed NT-PROBNP Stat LAB 05/14/19 23:50 Completed 0.9 % Sodium Chloride [Saline Flush] MEDS 05/14/19 23:51 Active 1 syr IVF PRN PRN Ipratropium/Albuterol Neb [Duoneb] MEDS 05/14/19 23:51 Discontinued 3 ml NEB ONCE STA Levalbuterol HCl [Xopenex 1.25 mg] MEDS 05/14/19 23:51 Discontinued 1.25 mg NEB ONCE STA CT CHEST W/O CONTRAST Stat RADS 05/14/19 23:50 Completed Medications Generic Name Dose Route Start Last Admin Trade Name Freq PRN Reason Stop Dose Admin Sodium Chloride 1 syr 05/14/19 23:51 Saline Flush IVF PRN PRN To flush IV Discontinued Medications Generic Name Dose Route Start Last Admin Trade Name Freq PRN Reason Stop Dose Admin Albuterol/Ipratropium 3 ml 05/14/19 23:51 05/15/19 00:23 Duoneb NEB 05/14/19 23:52 3 ml ONCE STA Administration Levalbuterol HCl 1.25 mg 05/14/19 23:51 05/15/19 01:03 Xopenex 1.25 Mg NEB 05/14/19 23:52 1.25 mg ONCE STA Administration Vital Signs: Temp Pulse Resp BP Pulse Ox 05/14/19 23:31 98.4 F 117 H 24 119/72 97 Discharge Plan Discharge Patient Disposition: ADMITTED INPATIENT Discharge Problem: COPD exacerbation, Edema of lower extremity Prescriptions: No Action levothyroxine 75 MCG tablet 75 mcg PO DAILY Qty: 30 RF: 1 potassium chloride 10 mEq tablet extended release 10 meq PO BID Qty: 180 RF: 0 albuterol sulfate [Ventolin HFA] 90 mcg/actuation HFA aerosol inhaler 1 - 2 puff inhalation Q4-6H PRN (Reason: shortness of breath or wheezing) Qty: 1 RF: 5 albuterol sulfate 1 VIAL solution for nebulization 1 vial NEB RTQ4H PRN (Reason: shortness of air) RF: 0 melatonin 10 mg Tablet 10 mg PO BEDTIME PRN (Reason: Sleep) RF: 0 nystatin [Nystop] 100,000 unit/gram Powder 1 applic topical TID Qty: 1 RF: 0 lorazepam [Ativan] 0.5 mg Tablet 0.5 mg PO BEDTIME PRN (Reason: SLEEP/ANXIETY) RF: 0 furosemide [Lasix] 20 mg Tablet 20 mg PO DAILY RF: 0 Symbicort 160-4.5 mcg/actuation Hfa Aerosol Inhaler 2 puff INHALATION BID RF: 0 meclizine 25 mg tablet 25 mg PO BID Qty: 60 RF: 2 escitalopram oxalate [Lexapro] 20 mg tablet 10 mg PO QDAY RF: 0 silver sulfadiazine [Silvadene] 1 % cream 1 applic TP BID Qty: 400 RF: 0 ED Provider: JULIETA VILLEDA Condition: Fair
[2019-05-15] MEDS ORDERED: ANCEF 1 GM in SODIUM CHLORIDE 50 ML IV SCH ×2 (01:30→13:00)
[2019-05-15] MEDS ORDERED: ANCEF ONE (01:46)
[2019-05-15] MEDS: SOLU-MEDROL 40 MG IVP SCH ×3 (02:34→17:45)
[2019-05-15] MEDS: ATIVAN PO PRN ×2 (04:53→23:30)
[2019-05-15] MEDS: SYNTHROID PO SCH (05:53)
[2019-05-15] MEDS: ANTIVERT PO SCH ×2 (08:13→21:37)
[2019-05-15] MEDS: LEXAPRO PO SCH (08:14)
[2019-05-15] MEDS: SYMBICORT 160-4.5 MCG INHALER IH SCH ×2 (08:15→21:37)
[2019-05-15] MEDS: LOVENOX SUBCUT SCH (08:16)
[2019-05-15] MEDS: NYSTOP POWDER TP SCH ×3 (08:16→21:37)
[2019-05-15] MEDS ORDERED: LASIX TAB PO SCH (09:00)
[2019-05-15] MEDS ORDERED: MICRO-K CAP PO SCH (09:00)
[2019-05-15] MEDS: ANCEF 1 GM/50 ML D5W 1 GM/50 ML BAG IV SCH ×2 (13:30→21:38)
--- NOTE | 2019-05-15 13:32 | US ---
EXAM: Ultrasound venous Doppler right and left lower extermity HISTORY: Leg swelling COMPARISON: 08/04/2017 TECHNIQUE: Venous duplex ultrasound of the right and left lower extremity was performed using color, carlisle-scale, and Doppler flow imaging. FINDINGS: There is normal color flow and compression of the right and left common femoral, greater s aphenous, profunda femoral, femoral, popliteal, (right) peroneal veins without evidence of intralumin al thrombus. The left peroneal vein and the bilateral posterior tibial and anterior tibial veins not visualized. IMPRESSION: No evidence for right or left lower extremity deep venous thrombosis at the visualized l evels, with veins in the bilateral calf not visualized
[2019-05-15] MEDS: MICRO-K CAP PO SCH (16:35)
--- NOTE | 2019-05-15 17:47 | PCM ---
Chief Complaint Chief Complaint: "Couldn't breathe & my legs---swelling and redness getting worse" History of Present Illness History of Present Illness: Olive Hansen is a 69 yo female patient of Nancy Michael APRN, presenting to [facility] 05/14/2019 approx. 23:00 via EMS w/ dyspnea and increasing edema and redness of bilateral lower extremities w/ onset in last 3-5 days. Patient notes increasing difficulty sleeping in her home hospital bed the last 3-5 days w/ SOB and recliner orthopnea. There has also been associated worsening of her chronic stasis dermatitis, and probable PAD per ER physician, Dr. Tabares. Pt. notes "elevate my head and then my legs, but I could never get comfortable enough to breath" w/ home O2 @ 3L/NC. There is associated intermittent fatigue and weakness, rare cough w/ small amount clear sputum, BRIGGS, wheezing, and unknown amount of wt. gain per pt. "d/t increased swelling" in BLE over the last 2-4 weeks. Patient has chronic stasis dermatitis and probable PAD; notes tightness in BLE w/ clear fluid weeping intermittently (not enough for dressings??) but denies pain. Legs are swollen enough that she has difficulty ambulating at home, but feels she is stable. Old records reviewed and note patient saw her PCP, Ms Michael, recently w/ stable COPD at that time but treated for BLE cellulitis w/ Doxycycline & Silvadene cream w/ symptoms now worsening. 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 ), shortness of air and wheeze; No hemoptysis and pain with breathing Cardiovascular: orthopnea and edema; No chest pain, left arm pain, diaphoresis, palpitations and syncope Gastrointestinal: other (Has 08/07/2017 colostomy -- no issues.); No abdominal pain, nausea, vomiting, diarrhea, melena, hematemesis, hematochezia and constipation Genitourinary: frequency (d/t Lasix.) and pelvic pain; No dysuria, hematuria, incontinence and flank pain Last Menstrual Cycle: Post Menopausal Neurological: numbness (Chronic numbness Left little finger & lateral ring finger), weakness (Uses walker when out in public w/ a seat; usually stays at home.), problems with walking (see weakness comment.), tremor (" a little shaky at times") and other; No headache, dizziness, seizure, speech difficulty and fainting Musculoskeletal: No pain and swelling in joints Skin: rash, pruritus (bilateral LE's at times. ), wounds (Chronic stasis dermatitis BLE's. ) and other; No lacerations and bruising Hematology: easy bruising and other; No easy bleeding and swollen glands Endocrine: weight changes ("extra fluid in my lower legs for 2-4 weeks---not sure."), excessive thirst and polyuria (Lasix use.) Psychiatric: depression (mild) and anxiety ("Sometimes" ); No sleeplessness, hopelessness, suicidal and hallucinations Habits: tobacco use ("1/3 PPD --1 - 1.5 PPD for 50 yrs and sometimes less."); No substance use and alcohol use Allergies Allergies Allergy/AdvReac Type Severity Reaction Status Date / Time No Known Allergies Allergy Uncoded 05/14/19 23:40 Medications Medications: Medications Generic Name Dose Route Start Last Admin Trade Name Freq PRN Reason Stop Dose Admin Albuterol Sulfate 2.5 mg 05/15/19 18:00 Albuterol 0.083% Neb NEB RTQ4H IBIS Budesonide/Formoterol Fumarate 2 puff 05/15/19 09:00 05/15/19 08:15 Symbicort 160-4.5 Mcg Inhaler IH 2 puff BID IBIS Administration Enoxaparin Sodium 40 mg 05/15/19 09:00 05/15/19 08:16 Lovenox SUBCUT 40 mg DAILY IBIS Administration Escitalopram Oxalate 10 mg 05/15/19 09:00 05/15/19 08:14 Lexapro PO 10 mg DAILY IBIS Administration Furosemide 20 mg 05/16/19 06:30 Lasix Tab PO QDAC IBIS Cefazolin Sodium/Dextrose 1 gm in 50 mls @ 75 mls/hr 05/15/19 13:00 05/15/19 13:30 Ancef 1 Gm/50 Ml D5w IV 05/18/19 12:59 75 mls/hr Q8HR IBIS Administration Levothyroxine Sodium 75 mcg 05/15/19 06:30 05/15/19 05:53 Synthroid PO 75 mcg DAILY@0630 IBIS Administration Lorazepam 0.5 mg 05/15/19 01:31 05/15/19 04:53 Ativan PO 0.5 mg BEDTIME PRN Administration Anxiety Meclizine HCl 25 mg 05/15/19 09:00 05/15/19 08:13 Antivert PO 25 mg BID IBIS Administration Methylprednisolone Sodium Succinate 40 mg 05/15/19 01:30 05/15/19 09:14 Solu-Medrol 40 Mg IVP 40 mg Q8H IBIS Administration Nystatin 1 applic 05/15/19 09:00 05/15/19 14:24 Nystop Powder TP 1 applic TID IBIS Administration Potassium Chloride 10 meq 05/15/19 17:30 05/15/19 16:35 Micro-K Cap PO 10 meq BIDWM IBIS Administration Sodium Chloride 1 syr 05/14/19 23:51 05/15/19 09:15 Saline Flush IVF 1 syr PRN PRN Administration To flush IV Body Composition Height: 5 ft 3 in Weight: 235 lb Body Mass Index (BMI): 41.8 Physical Examination Head: Normocephalic. NO signs of injury or trauma. Ears: Bilateral canals patent w/o inflammation, drainage, or cerumen. TM's w/ landmarks and w/o erythema, bulging, or fluid. Hearing very limited to loud speech; no hearing aids. Eyes: PERRLA. Vision w/o glasses/contacts. No conjunctival erythema, cobblestoning, or icterus. No discharge or periorbital edema. Nose: Nasal mucosa pink, moist, w/o d/c or bleeding. No sneezing. Throat: Pharynx moderately injected in smoker; no lesions; scant pale lt. [place] PND; Tonsils w/o enlargement or abnormalities. Mouth: Oral mucosa pink & moist. NO lesions. Few noted dental carries. Neurological: A/OX4. Ambulation w/ 1 assist. Waddling gait slightly unsteady. Cranial nerves II-XII intact. Sensation L little finger and lateral ring finger w/ paraethesias (chronic). No tremors noted. Reflexes intact 1+/4+ and =. Neck: Supple, soft, and NT. NO lymphadenopathy. No masses. Chest: No Chest wall tenderness to palpation. NO deformities noted. Lungs: Diminished breath sounds bilaterally ++ No wheezes, rales, rhonci, or crackles. Respiration regular w/ increased dyspnea with major movements. O2 at 3L/NC at present. No retractions noted. NB blance briskly. Heart: RRR. NO murmurs or gallops. S1, S2 present. PPP and equal 1+/2+. 1+ bilateral feet and ankle edema. Abdomen: Obese, soft, NT, NM, No organomegaly. JOCELIN/SO present. RUQ Colostomy present w/ bag intact over healthy stoma w/ moderate amount deep medium soft to watery stool present in bag. Upper Extremities: HERNANDEZ well w/o discomfort. No swelling. No joint tenderness, redness, or swelling. Spine non-tender to palpation w/ some arthritic deformity. Lower Extremities: Moves BLE slowly and w/ effort. Swelling bilateral lower leg, ankle and feet w/ edema. (see SKIN). Very mild tenderness over bilateral gao areas. SKIN: Generally very dry & flaky. Erythematous w/ stasis dermatitis changes of bilateral lower legs w/ edema and clear serous occasional oozing higinio. when moving/ambulating. No blatant lesions/ulcers noted. Lab/Tests/Diagnostic Imaging Lab/Tests/Diagnostic Imaging: Lab Review 05/15/19 05/15/19 05/15/19 00:05 00:05 01:03 WBC 12.84 H RBC 3.70 L Hgb 10.9 L Hct 35.5 L MCV 95.9 MCH 29.5 MCHC 30.7 L RDW Coeff of [place] 15.9 H Plt Count 251 Immature Gran % (Auto) 0.3 Neut % (Auto) 72.9 Lymph % (Auto) 16.3 Mora % (Auto) 6.2 Eos % (Auto) 4.0 Baso % (Auto) 0.3 Immature Gran # (Auto) 0.0 Neut # (Auto) 9.4 H Lymph # (Auto) 2.1 Mora # (Auto) 0.8 Eos # (Auto) 0.5 Baso # (Auto) 0.0 Puncture Site Rbrac O2 Saturation 95.0 ABG pH 7.422 ABG pCO2 52.0 H ABG pO2 73.0 L ABG HCO3 33.9 H ABG Total CO2 35 H ABG Base Excess 9 H Cm Test + O2 Delivery Device Bnc Oxygen Liter Flow 3.00 FiO2 % 32.0 Sodium 137.6 Potassium 3.66 Chloride 94.8 L Carbon Dioxide 37.1 H Anion Gap 9.36 BUN 14.3 Creatinine 0.96 Estimated GFR (MDRD) 57.00 BUN/Creatinine Ratio 14.89 Glucose 139.0 H Calcium 9.01 Total Bilirubin 0.45 AST 20.0 ALT 13.9 Alkaline Phosphatase 89.7 NT-Pro-B Natriuret Pep 30.000 Total Protein 7.09 Albumin 3.83 Globulin 3.26 Albumin/Globulin Ratio 1.17 05/15/19 05/15/19 04:10 04:10 WBC 13.07 H RBC 3.66 L Hgb 10.7 L Hct 34.9 L MCV 95.4 MCH 29.2 MCHC 30.7 L RDW Coeff of [place] 15.7 H Plt Count 267 Immature Gran % (Auto) 0.5 Neut % (Auto) 82.4 H Lymph % (Auto) 10.1 Mora % (Auto) 3.7 Eos % (Auto) 2.8 Baso % (Auto) 0.5 Immature Gran # (Auto) 0.1 Neut # (Auto) 10.8 H Lymph # (Auto) 1.3 Mora # (Auto) 0.5 Eos # (Auto) 0.4 Baso # (Auto) 0.1 Puncture Site O2 Saturation ABG pH ABG pCO2 ABG pO2 ABG HCO3 ABG Total CO2 ABG Base Excess Cm Test O2 Delivery Device Oxygen Liter Flow FiO2 % Sodium 136.2 Potassium 3.73 Chloride 95.3 L Carbon Dioxide 35.9 H Anion Gap 8.73 BUN 13.4 Creatinine 0.93 Estimated GFR (MDRD) 60.00 BUN/Creatinine Ratio 14.40 Glucose 126.1 H Calcium 8.93 Total Bilirubin 0.46 AST 18.3 ALT 13.8 Alkaline Phosphatase 91.7 NT-Pro-B Natriuret Pep Total Protein 7.12 Albumin 3.91 Globulin 3.21 Albumin/Globulin Ratio 1.21 Orders Category Date Time Status ADMIT PATIENT INPATIENT .TO [facility] (MONITORED BED) ADMISSION 05/15/19 01:24 Active ABG DRAW REQUEST Stat CARDIO 01/07/20 23:51 Completed EKG-(ED ONLY) Stat CARDIO 05/15/19 01:10 Completed NEBULIZER TREATMENT Stat CARDIO 05/14/19 23:51 Completed OXYGEN Routine CARDIO 05/15/19 01:26 Active ACTIVITY .BR with BRP CARE 05/15/19 01:25 Completed ELEVATE AFFECTED EXTREMITY .ONCE CARE 05/15/19 01:29 Active INTAKE & OUTPUT Q8HR CARE 05/15/19 01:25 Completed TELEMETRY MONITORING TELE CARE 05/15/19 01:24 Active VITAL SIGNS Q8HR CARE 05/15/19 01:25 Completed CARDIAC DIET DIETARY 05/15/19 Breakfast Ordered CONSULT INFIRMARY ATTENDANT ONCE INFIRMARY ATTENDANT 05/15/19 02:49 Active ED SIEVE MAKER APPLIED .ONCE EMERGENCY 05/14/19 23:50 Active ED IV/MEDIPORT/POWERPORT .ONCE EMERGENCY 05/14/19 23:51 Active ABG Stat LAB 05/14/19 23:51 Completed CBC W/ AUTO DIFF DAILY@0600 LAB 05/15/19 04:10 Completed CBC W/ AUTO DIFF DAILY@0600 LAB 05/16/19 06:00 Ordered CBC W/ AUTO DIFF Stat LAB 05/14/19 23:50 Completed COMPREHENSIVE METABOLIC PANEL DAILY@0600 LAB 05/15/19 04:10 Completed COMPREHENSIVE METABOLIC PANEL DAILY@0600 LAB 05/16/19 06:00 Ordered COMPREHENSIVE METABOLIC PANEL Stat LAB 05/14/19 23:50 Completed NT-PROBNP Stat LAB 05/14/19 23:50 Completed 0.9 % Sodium Chloride [Saline Flush] MEDS 05/14/19 23:51 Active 1 syr IVF PRN PRN Albuterol Sulfate 0.083% Neb [Albuterol 0.083% Neb] MEDS 05/15/19 18:00 Ordered 2.5 mg NEB RTQ4H Budesonide/Formoterol Fumarate [Symbicort 160-4.5 Mcg MEDS 05/15/19 09:00 Active Inhaler] 2 puff IH BID Cefazolin Sodium [Ancef] MEDS 05/15/19 01:46 Discontinued 1 gm .ROUTE .STK-MED ONE Cefazolin Sodium [Ancef] 1 gm MEDS 05/15/19 01:30 Discontinued 0.9 % Sodium Chloride [Sodium Chloride] 50 ml IV Q8H Cefazolin Sodium/Dextrose,Iso [Ancef 1 gm/50 ml D5w] MEDS 05/15/19 13:00 Active 1 gm in 50 ml IV Q8HR Enoxaparin Sodium [Lovenox] MEDS 05/15/19 09:00 Active 40 mg SUBCUT DAILY Escitalopram Oxalate [Lexapro] MEDS 05/15/19 09:00 Active 10 mg PO DAILY Furosemide [Lasix Tab] MEDS 05/15/19 09:00 Discontinued 20 mg PO DAILY Furosemide [Lasix Tab] MEDS 05/16/19 06:30 Active 20 mg PO QDAC Ipratropium/Albuterol Neb [Duoneb] MEDS 05/14/19 23:51 Discontinued 3 ml NEB ONCE STA Levalbuterol HCl [Xopenex 1.25 mg] MEDS 05/14/19 23:51 Discontinued 1.25 mg NEB ONCE STA Levothyroxine Sodium [Synthroid] MEDS 05/15/19 06:30 Active 75 mcg PO DAILY@0630 Lorazepam [Ativan] MEDS 05/15/19 01:31 Active 0.5 mg PO BEDTIME PRN Meclizine HCl [Antivert] MEDS 05/15/19 09:00 Active 25 mg PO BID Methylprednisolone Sod Succ/Pf [Solu-Medrol 40 mg] MEDS 05/15/19 01:30 Active 40 mg IVP Q8H Nystatin [Nystop Powder] MEDS 05/15/19 09:00 Active 1 applic TP TID Potassium Chloride [Micro-K Cap] MEDS 05/15/19 09:00 Discontinued 10 meq PO BID Potassium Chloride [Micro-K Cap] MEDS 05/15/19 17:30 Active 10 meq PO BIDWM RESUSCITATION STATUS Routine OTHERS 05/15/19 01:[address] CHEST W/O CONTRAST Stat RADS 05/14/19 23:50 Completed U/S VENOUS SCAN JESSE LEGS Routine RADS 05/15/19 01:30 Completed PT CONSULT Routine THERAPIES 05/15/19 Ordered Medications Generic Name Dose Route Start Last Admin Trade Name Freq PRN Reason Stop Dose Admin Albuterol Sulfate 2.5 mg 05/15/19 18:00 Albuterol 0.083% Neb NEB RTQ4H IBIS Budesonide/Formoterol Fumarate 2 puff 05/15/19 09:00 05/15/19 08:15 Symbicort 160-4.5 Mcg Inhaler IH 2 puff BID IBIS Administration Enoxaparin Sodium 40 mg 05/15/19 09:00 05/15/19 08:16 Lovenox SUBCUT 40 mg DAILY IBIS Administration Escitalopram Oxalate 10 mg 05/15/19 09:00 05/15/19 08:14 Lexapro PO 10 mg DAILY IBIS Administration Furosemide 20 mg 05/16/19 06:30 Lasix Tab PO QDAC IBIS Cefazolin Sodium/Dextrose 1 gm in 50 mls @ 75 mls/hr 05/15/19 13:00 05/15/19 13:30 Ancef 1 Gm/50 Ml D5w IV 05/18/19 12:59 75 mls/hr Q8HR IBIS Administration Levothyroxine Sodium 75 mcg 05/15/19 06:30 05/15/19 05:53 Synthroid PO 75 mcg DAILY@0630 IBIS Administration Lorazepam 0.5 mg 05/15/19 01:31 05/15/19 04:53 Ativan PO 0.5 mg BEDTIME PRN Administration Anxiety Meclizine HCl 25 mg 05/15/19 09:00 05/15/19 08:13 Antivert PO 25 mg BID IBIS Administration Methylprednisolone Sodium Succinate 40 mg 05/15/19 01:30 05/15/19 09:14 Solu-Medrol 40 Mg IVP 40 mg Q8H IBIS Administration Nystatin 1 applic 05/15/19 09:00 05/15/19 14:24 Nystop Powder TP 1 applic TID IBIS Administration Potassium Chloride 10 meq 05/15/19 17:30 05/15/19 16:35 Micro-K Cap PO 10 meq BIDWM IBIS Administration Sodium Chloride 1 syr 05/14/19 23:51 05/15/19 09:15 Saline Flush IVF 1 syr PRN PRN Administration To flush IV Discontinued Medications Generic Name Dose Route Start Last Admin Trade Name Freq PRN Reason Stop Dose Admin Albuterol/Ipratropium 3 ml 05/14/19 23:51 05/15/19 00:23 Duoneb NEB 05/14/19 23:52 3 ml ONCE STA Administration Furosemide 20 mg 05/15/19 09:00 05/15/19 08:13 Lasix Tab PO 20 mg DAILY IBIS Administration Cefazolin Sodium 1 gm/ Sodium 50 mls @ 75 mls/hr 05/15/19 01:30 05/15/19 02:33 Chloride IV 05/18/19 01:29 75 mls/hr Q8H IBIS Administration Levalbuterol HCl 1.25 mg 05/14/19 23:51 05/15/19 01:03 Xopenex 1.25 Mg NEB 05/14/19 23:52 1.25 mg ONCE STA Administration Potassium Chloride 10 meq 05/15/19 09:00 05/15/19 08:14 Micro-K Cap PO 10 meq BID IBIS Administration Vital Signs Temp Pulse Pulse Resp BP Pulse Ox 05/15/19 13:45 98.6 F 100 H 18 128/64 95 05/15/19 10:19 98 05/15/19 08:00 3 L 05/15/19 05:20 98.7 F 105 H 22 145/75 H 93 L 05/15/19 02:19 98.7 F 118 H 110 H 24 96 05/14/19 23:31 98.4 F 117 H 24 119/72 97 Assessment (1) COPD with acute bronchitis: Status: Chronic Code(s): J44.1 - Chronic obstructive pulmonary disease with (acute) exacerbation SNOMED Code(s): 39540045 (2) Chronic respiratory failure with hypoxia, on home oxygen therapy: Status: Chronic Code(s): J96.11 - Chronic respiratory failure with hypoxia; Z99.81 - Dependence on supplemental oxygen SNOMED Code(s): 311116853 (3) Bilateral lower leg cellulitis: Status: Acute Code(s): L03.116 - Cellulitis of left lower limb SNOMED Code(s): 814380131 (4) Stasis dermatitis of both legs: Status: Chronic Code(s): I83.11 - Varicose veins of right lower extremity with inflammation; I83.12 - Varicose veins of left lower extremity with inflammation SNOMED Code(s): 32507729 (5) Tobacco abuse disorder: Status: Chronic Code(s): Z72.0 - Tobacco use SNOMED Code(s): 65142278 (6) Tobacco abuse counseling: Status: Acute Code(s): Z71.6 - Tobacco abuse counseling SNOMED Code(s): 760408761 (7) Hypertension, essential, benign: Status: Chronic Code(s): I10 - Essential (primary) hypertension SNOMED Code(s): 5050302 (8) Hypothyroidism: Status: Chronic SNOMED Code(s): 83807205 Qualifiers: Hypothyroidism type: unspecified Qualified Code(s): E03.9 - Hypothyroidism, unspecified (9) Colostomy care: Status: Acute Code(s): Z43.3 - Encounter for attention to colostomy SNOMED Code(s): 382485139 (10) Colostomy present on admission: Status: Chronic Code(s): Z93.3 - Colostomy status SNOMED Code(s): 692553237 (11) Depression with anxiety: Status: Acute Code(s): F41.8 - Other specified anxiety disorders SNOMED Code(s): 57375859 (12) Decreased mobility and endurance: Status: Acute Code(s): Z74.09 - Other reduced mobility SNOMED Code(s): 3039797 (13) Edema of both lower extremities due to peripheral venous insufficiency: Status: Acute Code(s): I87.2 - Venous insufficiency (chronic) (peripheral) SNOMED Code(s): 82880350443287122 Plan Plan: Chronic Resp Failure with hypoxia, on constant home --O2 per protocol; Patient has heavy smell of tobacco smoke w/ toxic house of same smell reported to ER MD. No nicotine patch on as ordered per PCP.: Will discuss Smoking Cessation tomorrow as patient not willing for more conversation at this time.; Monitor labs, VS & O2 Sat. Exacerbation COPD--See #1.; Note chronic anemia d/t chronic disease COPD. Will con't IV steroids as benefits outweigh risks at this time.; Con't Symbicort (home med) w/ Albuterol HHN Q4hr.; Con't O2 per protocol/NC at present. BLE cellulitis w/ Chronic Stasis Dermatitis--Just completed Doxycycline tx for 10 days. Con't Cefazolin IV ordered per ER and transition to PO ATB upon d/c as indicated.; nursing staff to assist with needed body cleanliness; Cont. home Nystatin powder tid; Wound clinic referral upon d/c. Edema BLE likely d/t peripheral Venous Insufficiency--Pending results for admission Venous US BLE. DVT prophylaxis at present Lovenox; refuses TEDS or SCD's at present. Con't home meds (Lasix); Lovenox while in hospital. Nursing staff to ambulate patient to chair and 5 other times a day w/ assistance. Benign Essential HTN--Stable.; Monitor VS; Con't home meds; Cardiac diet. Decreased Mobility & Endurance w/ High Risk Falls--HFR precautions; PT evaluation ordered. Patient seems to be content to just sit all the time and go from bed to bedside commode; admits to very limited physical activity at home. Case mgmt, Johnny, present during SUBSTANCE ABUSE THERAPIST visit and will look at other alternatives for asst. w/ ADL's upon d/c. Patient is intent on returning home to live by herself and she thinks she is doing okay. Have talked briefly of fall risk complications--fx hip, fx bones, SDH, and other complications. Patient thinks she is managind well by herself. Tobacco Abuse Disorder w/ Counseling -- See #1. Due to patient disposition today, will have counseling talk tomorrow; hopefully will be more receptive then. No smoking zone w/ nicotine patch refused. Depression w/ Anxiety--Stable at present. NO SI or hallucinations.; Con't home meds. Hypothyroidism --Con't home meds. Colostomy POA--Site appears healthy. Colostomy care given w/ nursing asst. No issues at present. Disposition Expected length of stay 48-72 hrs. Pt. Care Time today : 1 hr. including Case Management and Nurse Huddle. [facility] Medical History (Updated 05/16/19 @ 14:27 by ASHLEY GUZMAN) BPV (benign positional vertigo) (Chronic) Chronic obstructive pulmonary disease Chronic respiratory failure with hypoxia, on home oxygen therapy (Chronic) Colostomy present on admission (Chronic ~05/16/19) Decreased mobility and endurance (Acute) Depression with anxiety (Acute) Diverticular disease (Inactive) Dyslipidemia (Inactive) Edema of both lower extremities due to peripheral venous insufficiency (Acute) History of home oxygen therapy (Inactive) History of pneumonia (Acute) Hypertension, essential, benign (Chronic) Hypothyroidism (Chronic) Obesity Stasis dermatitis of both legs (Chronic) Tobacco abuse disorder (Chronic) Social History (Updated 05/15/19 @ 03:12 by MEKHI KUMARI RN) Smoking and tobacco status: Current every day smoker Tobacco type: cigarettes Smoking cigarettes per day: 7 Substance use type: does not use Adopted: Yes Household members: children Housing: house Lives independently: No (lives with family) Current diet type/program: regular Caffeine: Yes Female Reproductive History Menstrual Hx Hysterectomy: No Hx Tubal Ligation: Yes
[2019-05-15] MEDS: ALBUTEROL 0.083% NEB NEB SCH ×2 (19:00→21:10)
[2019-05-16] MEDS: SOLU-MEDROL 40 MG IVP SCH ×3 (01:19→18:27)
[2019-05-16] MEDS: ALBUTEROL 0.083% NEB NEB SCH ×6 (02:05→21:30)
[2019-05-16] MEDS: SYNTHROID PO SCH (05:50)
[2019-05-16] MEDS: LASIX TAB PO SCH (05:50)
[2019-05-16] MEDS: ANCEF 1 GM/50 ML D5W 1 GM/50 ML BAG IV SCH ×3 (05:50→20:56)
--- NOTE | 2019-05-16 07:31 | PCM.PROG ---
Time Seen by Provider: 05/15/19 01:35 Subjective: Patient seen for daily rounds @ 6:20AM 05/16/2019. Patient sitting up at bedside noting she is breathing easier this AM. Cough is still present higinio after Q4hr neb treatments w/ occasional clear sputum. O2 remains at 3L/NC. Patient complains that she is hungry, but otherwise denies any other issues at this time. Denies pain, headache, dizziness, SOB except her "usual" BRIGGS, N/V, abdominal pain, diarrhea, constipation, BLE discomfort, or other new issues. Sleep is usual as at home w/ occasional restlessness. Notes her legs don't feel as swollen today. Nursing staff reports patient is mainly staying in bed and is upset that she has to call them when she wants to move to the commode. Concerns by HS nurse that her 2 family members will soon be moving out of the patient residence and patient will be left alone w/ poor mobility. Patient remains on HFR protocol. Objective: Vitals: T=97.9 F, P=85, R=20, PO=536/73, SPO2=95 General: Sitting up at bedside w/ O2 NC intact. HEENT: PERRLA: No redness or discharge. Pharynx w/o injection, PND, lesions. No nasal discharge or sneezing. Very ALTURAS. Neck: Supple; NT. No masses or lymphadenopathy. Lungs: BS present throughout w/ bibasilar crackles s/p recent Albuterol Neb [place]. No cough, wheezing, or rhonchi. Resp. easy and regular at rest w/ O2 @ 3L/NC. CVS: RRR; No murmurs, gallops, or irregularities. PPP 1+/4+ w/ 1+ to trace edema. Abdomen: Obese. Colostomy bag intact RUQ area w/ healthy pink stoma and moderate amt med-dark brown liquid stool. NT, NM, JOCELIN/SO present. M/S: HERNANDEZ fairly well w/ BLE limited due to edema, osteoarthritis, obesity, and mild weakness. BLE w/ tenderness to palpation of gao areas and 1+ edema. Neurological: A/O X4. Responds when spoken to (visitor using a loud voice). Responds best when addressed from her front and able to see you are speaking with her. Gait waddling w/ needed rollator for stability and 1 asst staff. No evidence of pain at present. Skin: Generalized dryness of skin w/ flaking. BLE mild nielsen red stasis dermatitis presentation w/ mild intermittent clear serous weepage increased w/ movement. No ulcerations. Last Vital Signs Temp 97.9 F 05/16/19 04:54 Pulse 85 05/16/19 04:54 Resp 20 05/16/19 04:54 BP 134/73 05/16/19 04:54 Pulse Ox 95 05/16/19 04:54 Lab/Tests/Diagnostic Imaging: [] Laboratory Last Values WBC 19.53 K/ul (4.6-10.2) H D 05/16/19 05:03 RBC 3.30 10^6/ul (4.20-5.40) L 05/16/19 05:03 Hgb 9.6 g/dl (12.0-16.0) L 05/16/19 05:03 Hct 31.5 % (37.0-47.0) L 05/16/19 05:03 MCV 95.5 fl (81.0-99.0) 05/16/19 05:03 MCH 29.1 pg (27.0-31.0) 05/16/19 05:03 MCHC 30.5 (31.8-35.4) L 05/16/19 05:03 RDW Coeff of [place] 15.3 % (11.6-14.8) H 05/16/19 05:03 Plt Count 260 10^3/uL (140-440) 05/16/19 05:03 Immature Gran % (Auto) 0.9 % (0.0-5.0) 05/16/19 05:03 Neut % (Auto) 91.3 % (42.2-75.2) H 05/16/19 05:03 Lymph % (Auto) 4.7 (10.0-50.0) L 05/16/19 05:03 [place] % (Auto) 2.9 (0-10) 05/16/19 05:03 Eos % (Auto) 0.0 % (0.0-7.0) 05/16/19 05:03 Baso % (Auto) 0.2 % (0.0-3.0) 05/16/19 05:03 Immature Gran # (Auto) 0.2 (0.0-1.0) 05/16/19 05:03 Neut # (Auto) 17.9 K/ul (2.0-6.9) H 05/16/19 05:03 Lymph # (Auto) 0.9 K/uL (0.60-3.4) 05/16/19 05:03 [place] # (Auto) 0.6 K/uL (0.4-2.0) 05/16/19 05:03 Eos # (Auto) 0.0 K/ul (0.0-0.7) 05/16/19 05:03 Baso # (Auto) 0.0 K/uL (0-0.2) 05/16/19 05:03 Puncture Site Rbrac 05/15/19 01:03 O2 Saturation 95.0 % (95-100) 05/15/19 01:03 ABG pH 7.422 (7.35-7.45) 05/15/19 01:03 ABG pCO2 52.0 mmHg (35-45) H 05/15/19 01:03 ABG pO2 73.0 mmHg (85-100) L 05/15/19 01:03 ABG HCO3 33.9 (22.0-26.0) H 05/15/19 01:03 ABG Total CO2 35 (22.0-28.0) H 05/15/19 01:03 ABG Base Excess 9 (-2.0-2.0) H 05/15/19 01:03 Cm Test + 05/15/19 01:03 O2 Delivery Device [facility] 05/15/19 01:03 Oxygen Liter Flow 3.00 05/15/19 01:03 FiO2 % 32.0 % 05/15/19 01:03 Sodium 136.6 mmol/L (134.5-145) 05/16/19 05:03 Potassium 4.62 mmol/L (3.5-5.1) 05/16/19 05:03 Chloride 96.4 mmol/L (98-107) L 05/16/19 05:03 Carbon Dioxide 34.0 mmol/L (22-30.0) H 05/16/19 05:03 Anion Gap 10.82 05/16/19 05:03 BUN 19.4 mg/dL (7-17) H 05/16/19 05:03 Creatinine 0.90 mg/dL (0.60-1.30) 05/16/19 05:03 Estimated GFR (MDRD) 62.00 mL/min 05/16/19 05:03 BUN/Creatinine Ratio 21.55 05/16/19 05:03 Glucose 192.9 mg/dL (74-106) H 05/16/19 05:03 Hemoglobin A1c 5.78 (4.0-6.0) 05/16/19 05:03 Calcium 9.04 mg/dL (8.4-10.2) 05/16/19 05:03 Total Bilirubin 0.32 mg/dL (0.2-1.3) 05/16/19 05:03 AST 16.8 U/L (14-36) 05/16/19 05:03 ALT 13.9 U/L (0-35) 05/16/19 05:03 Alkaline Phosphatase 66.4 U/L (53-141) D 05/16/19 05:03 NT-Pro-B Natriuret Pep 30.000 pg/mL (0-124) 05/15/19 00:05 Total Protein 6.54 g/dL (6.3-8.2) 05/16/19 05:03 Albumin 3.44 g/dL (3.5-5.0) L 05/16/19 05:03 Globulin 3.10 05/16/19 05:03 Albumin/Globulin Ratio 1.10 05/16/19 05:03 Urine Color Yellow (YELLOW) 05/16/19 07:53 Urine Clarity Clear (CLEAR) 05/16/19 07:53 Urine pH 5.5 (5-9) 05/16/19 07:53 Ur Specific [place] 1.025 (1.005-1.030) 05/16/19 07:53 Urine Protein Negative (NEGATIVE) 05/16/19 07:53 Urine Glucose (UA) Negative (NEGATIVE) 05/16/19 07:53 Urine Ketones Negative (NEGATIVE) 05/16/19 07:53 Urine Blood Negative (NEGATIVE) 05/16/19 07:53 Urine Nitrite Negative (NEGATIVE) 05/16/19 07:53 Urine Bilirubin Negative (NEGATIVE) 05/16/19 07:53 Urine Urobilinogen 0.2 (0.2) 05/16/19 07:53 Ur Leukocyte Esterase Negative (NEGATIVE) 05/16/19 07:53 Diagnostic Imaging U/S REPORT : [id number] Patient: LUISA CHAVARRIA Acct:[id number] Medical Record: [id number] : 1950 Loc: [facility] Room/Bed: Age/Sex: 69 / F ADM Status: ADM IN Date of Service: 05/15/19 Ordering Physician: JULIETA VILLEDA MD Procedure(s): U/S VENOUS SCAN JESSE LEGS Report Number(s): [id number] Accession Number(s): [id number] cc: NANY ALSTON APRN; JULIETA VILLEDA MD EXAM: Ultrasound venous Doppler right and left lower extremity HISTORY: Leg swelling COMPARISON: 08/04/2017 TECHNIQUE: Venous duplex ultrasound of the right and left lower extremity was performed using color, carlisle-scale, and Doppler flow imaging. FINDINGS: There is normal color flow and compression of the right and left common femoral, greater saphenous, profunda femoral, femoral, popliteal, (right) peroneal veins without evidence of intraluminal thrombus. The left peroneal vein and the bilateral posterior tibial and anterior tibial veins not visualized. IMPRESSION: No evidence for right or left lower extremity deep venous thrombosis at the visualized levels, with veins in the bilateral calf not visualized Dictated By: ION VERMA Signed By: ION VERMA MD Dictated Date/Time: 05/15/19 1326 (1) Hyperglycemia, drug-induced: Status: Acute Code(s): R73.9 - Hyperglycemia, unspecified; T50.905A - Adverse effect of unspecified drugs, medicaments and biological substances, initial encounter SNOMED Code(s): 501597342 (2) Chronic respiratory failure with hypoxia, on home oxygen therapy: Status: Chronic Code(s): J96.11 - Chronic respiratory failure with hypoxia; Z99.81 - Dependence on supplemental oxygen SNOMED Code(s): 546658663 (3) COPD with acute bronchitis: Status: Chronic Code(s): J44.1 - Chronic obstructive pulmonary disease with (acute) exacerbation SNOMED Code(s): 80477508 (4) Bilateral lower leg cellulitis: Status: Acute Code(s): L03.116 - Cellulitis of left lower limb SNOMED Code(s): 125195486 (5) Edema of both lower extremities due to peripheral venous insufficiency: Status: Acute Code(s): I87.2 - Venous insufficiency (chronic) (peripheral) SNOMED Code(s): 88586688168613773 (6) Stasis dermatitis of both legs: Status: Chronic Code(s): I83.11 - Varicose veins of right lower extremity with inflammation; I83.12 - Varicose veins of left lower extremity with inflammation SNOMED Code(s): 40372927 (7) Hypertension, essential, benign: Status: Chronic Code(s): I10 - Essential (primary) hypertension SNOMED Code(s): 9341608 (8) Decreased mobility and endurance: Status: Acute Code(s): Z74.09 - Other reduced mobility SNOMED Code(s): 9994516 (9) Tobacco abuse disorder: Status: Chronic Code(s): Z72.0 - Tobacco use SNOMED Code(s): 00149474 (10) Tobacco abuse counseling: Status: Acute Code(s): Z71.6 - Tobacco abuse counseling SNOMED Code(s): 744506304 (11) Depression with anxiety: Status: Acute Code(s): F41.8 - Other specified anxiety disorders SNOMED Code(s): 52923998 (12) Hypothyroidism: Status: Chronic SNOMED Code(s): 42435439 (13) Colostomy care: Status: Acute Code(s): Z43.3 - Encounter for attention to colostomy SNOMED Code(s): 203495210 (14) Colostomy present on admission: Status: Chronic Code(s): Z93.3 - Colostomy status SNOMED Code(s): 843494112 Plan: Hyperglycemia d/t drugs--FBS this AM 192 w/ pt. denying DM hx. Suspect elevation d/t steroid IV tx. Will add Metformin ER 500mg PO QAM at present as pt. unwilling to do insulin. SBGM AC & HS. Will check Hgb A1C w/ this AM labs. Chronic Resp Failure with hypoxia, on constant home --O2 Patient again counseled on need for smoking cessation and education for family living with her for a few days to be smoking outside the home. Nursing staff has been diligent bathing and washing patient hair to get all smoke off her body. Secondary smoke exposure avoidance emphasized. Patient has tried nicotine patch but unwilling at present. Chantix has been denied recently via her insurance plan. 25 minutes on Tobacco Cessation plan.; Monitor VS & O2 Sat.; Con't O2 per protocol to also be used when ad tyesha. Exacerbation COPD--See #1.; Note chronic anemia d/t chronic disease COPD and Leukocytosis increasing w/ additional doses of steroids as expected. Will con't IV steroids as benefits outweigh risks at this time.; Con't Symbicort w/ Albuterol HHN Q4hr.; Con't O2 per protocol/NC at present.; Serious COPD issues that needs stop tobacco, secondary smoke exposure, and overeating. BLE cellulitis w/ Chronic Stasis Dermatitis--Con't Cefazolin IV and transition to PO ATB upon d/c as indicated.; Gentle Aquatic type soap cleanser to legs BID w/Nystatin powder tid; Wound clinic referral upon d/c. Edema BLE likely d/t peripheral Venous Insufficiency--Admit Venous US BLE negative for DVT. Con't home meds (Lasix); Lovenox while in hospital. No TEDS d/t cellulitis/dermatitis; nursing staff to ambulate patient to chair and 5 other times a day w/ assistance. Benign Essential HTN--Stable.; Monitor VS; Con't home meds; Cardiac diet. Decreased Mobility & Endurance w/ High Risk Falls--Con't HFR precautions; PT evaluation and then increase patient activity. These will all be challenging goals as the patient complains frequently re: having to call for assistance for bedside commode w/ safety concerns and HFR protocol explained numerous times to her by all staff. Case mgmt, Johnny, aware of challenges w/ mobility and family soon moving out to leave patient on her own. Patient reality concerning her safety seems to be mainly denial. Discussed w/ [facility] staff and they will consult patient for evaluation and assist as allowed for the patient. Tobacco Abuse Disorder w/ Counseling -- See #1. Depression w/ Anxiety--Stable at present. NO SI or hallucinations.; Con't home meds. Hypothyroidism --Con't home meds. Colostomy POA--Site appears healthy. Colostomy care given w/ nursing asst. No issues at present. Disposition Expected length of stay 48-72 hrs. Pt. Care Time today : 1 hr. 30minutes including Case Management, Nurse Huddle, and [facility] di scussions/planning.
[2019-05-16] MEDS: NYSTOP POWDER TP SCH ×3 (08:02→20:55)
[2019-05-16] MEDS: SYMBICORT 160-4.5 MCG INHALER IH SCH ×2 (08:02→20:55)
[2019-05-16] MEDS: GLUCOPHAGE PO SCH (08:03)
[2019-05-16] MEDS: MICRO-K CAP PO SCH ×2 (08:03→16:36)
[2019-05-16] MEDS: LOVENOX SUBCUT SCH (08:04)
[2019-05-16] MEDS: ANTIVERT PO SCH ×2 (08:04→22:00)
[2019-05-16] MEDS: LEXAPRO PO SCH (08:04)
--- NOTE | 2019-05-16 15:35 | RS.PTINEVL ---
Subjective - Patient information Date of Evaluation: 05/16/19 Date of Arrival on Unit: 05/15/19 Admitted From:: Home Diagnosis: COPD exacerbation, cellulitis BLE Usual Living Arrangement: Alone Living Arrangement Comments: lives in small apt alone, has 4 hours a week of homemaking assist. Home Environment: Apartment, Level/No stairs Medical History: Hypertension, COPD, Arthritis Medical History Comments:: depression, anxiety Surgical History: Colostomy Medications: see chart Subjective Information/ Patient Comments:: pt states that she gets SOA when walking. States she uses O2 at home and has RWX at home. - Level of function Abilities prior to this admission: pt amb short distances with rwx. Current Level of Function: Partially Dependent Current Equipment Used at Home: Oxygen, colostomy supplies Interventions - Objective Patient Orientation: Person, Place, Time Current Interventions: IV's, Oxygen, Telemetry Observation: pt with pitting edema BLE with erythema and dry flaky skin Range of Motion - ROM Right Upper Extremity AROM: WFL's Left Upper Extremity AROM: WFL's Right Lower Extremity AROM: WFL's Left Lower Extremity AROM: WFL's Muscle Strength - Muscle Strength Right Upper Extremity Strength: Mild Weakness (grossly 4-/5) Left Upper Extremity Strength: Mild Weakness (grossly 4-/5) Right Lower Extremity Strength: Mild Weakness (hip flex 4-/5, knee flex/ext 4/5, ankle DF/PF 4/5) Left Lower Extremity Strength: Mild Weakness (hip flex 4-/5, knee flex/ext 4/5, ankle DF/PF 4/5) Sensation - Sensation Right Upper Extremity Sensation: Intact/Normal Left Upper Extremity Sensation: Intact/Normal Right Lower Extremity Sensation: Impaired Left Lower Extremity Sensation: Impaired Comments: n/t BLE Palpation Palpation Findings: Tenderness Comments:: BLE tender to palpation Balance - Sitting Balance and Reactions Static Sitting Balance: Good Dynamic Sitting Balance: Fair - Standing Balance and Reactions Static Standing Balance: Fair Dynamic Standing Balance: Poor Standing Equilibrium Reactions: Delayed Left, Delayed Right Standing Protective Reactions: Delayed Left, Delayed Right Functional Mobility - Bed Mobility Comments:: pt seen sitting up at edge of bed - Transfers Sit to Stand: CGA Stand to Sit: CGA - Safety Awareness Safety Awareness: Poor ISAIAS INDEX SCORE: n/a Ambulation - Ambulation Assistive Device Used: Rolling Walker Orthotic/Prosthetic Device: No Distance: 95ft with O2 3liters Assistance needed with Ambulation: CGA Gait Deviations: Forward posture, Short stride Ambulation Comments: pt requires cues for PLB, and step length. Factors Affecting Ambulation: Decreased Balance, Breathing/O2 Saturation, Weakness, Decreased Safety, Limited Endurance Treatment time - Time with patient Length of Evaluation: 21 Total treatment time: 27 Patient Education - Education Patient Education: Activity Modification, Education of Plan of Care Teaching Recipient: Patient Teaching Methods: Discussion Comments: discussion with patient regarding importance of participating with PT to improve her strength. Assessment - Assessment Problem List:: Decreased level of function, Requires training/education, Decreased safety/Risk of falls, Weakness Rehab Potential: Fair Further Therapy Indicated?: Yes Candidate for Swing Bed for Therapy Services?: Do not feel pt would be a candidate for swing bed due to being close to baseline level of function and history of noncompliance. Evaluation Complexity: HISTORY: Medium, EXAM OF BODY SYSTEMS: Medium, CLINICAL PRESENTATION: Medium, CLINICAL DECISION MAKING: Medium Patient's Goal(s): Go home Short Term Goals GOAL #1: pt demonstrate independence with rolling and bridging Goal to be met by: 05/18/19 GOAL #2: Transfer sup to/from sit CGA Goal to be met by: 05/18/19 GOAL #3: Transfer sit to/from stand CGA Goal to be met by: 05/18/19 GOAL #4: pt amb with rwx and O2 110ft with CGA with no LOB Goal to be met by: 05/18/19 Nursing Home Goals GOAL #1: Sup to/from sit to/from stand SBA Goal to be met by: 05/20/19 GOAL #2: pt amb functional household distances with rwx and O2 independently Goal to be met by: 05/20/19 GOAL #3: Improve dyn stand balance fair Goal to be met by: 05/20/19 Plan Plan of Care: Therapeutic EX, Therapeutic Activity Other:: gait training Frequency of Treatment: 1-2 X day, as tolerated Duration of Treatment: 4 days Treatment Diagnosis (ICD 10 Codes): R 26.2 difficulty walking. R 26.81 impaired balance Has the Physician been added for Co-signature?: Yes
[2019-05-17] MEDS: ATIVAN PO PRN ×2 (00:14→23:01)
[2019-05-17] MEDS: ALBUTEROL 0.083% NEB NEB SCH ×6 (01:04→21:25)
[2019-05-17] MEDS: SOLU-MEDROL 40 MG IVP SCH ×3 (02:15→17:10)
[2019-05-17] MEDS: ANCEF 1 GM/50 ML D5W 1 GM/50 ML BAG IV SCH ×3 (04:37→20:56)
[2019-05-17] MEDS: SYNTHROID PO SCH (05:35)
[2019-05-17] MEDS: LASIX TAB PO SCH (05:35)
[2019-05-17] MEDS: ANTIVERT PO SCH ×2 (09:37→20:57)
[2019-05-17] MEDS: SYMBICORT 160-4.5 MCG INHALER IH SCH ×2 (09:37→20:55)
[2019-05-17] MEDS: GOLD BOND ULTIMATE HEALING TP SCH ×2 (09:37→20:56)
[2019-05-17] MEDS: MICRO-K CAP PO SCH ×2 (09:37→17:10)
[2019-05-17] MEDS: LEXAPRO PO SCH (09:37)
[2019-05-17] MEDS: GLUCOPHAGE PO SCH (09:37)
[2019-05-17] MEDS: LOVENOX SUBCUT SCH (09:39)
[2019-05-17] MEDS: NYSTOP POWDER TP SCH ×3 (09:46→20:56)
--- NOTE | 2019-05-17 16:52 | PCM.PROG ---
Date Seen by Provider: 05/17/19 Time Seen by Provider: 16:10 Subjective: Olive Hansen found resting in bed in semi-shah's position. States she slept better last night and that her day was good. Notes intermittent tight cough w/ occasional production of clear thick sputum. Denies SOB at rest. BRIGGS has slightly lessened w/ O2 per NC @ 3L. She has been up in chair for meals and walked only a few times in her room declining her nurse. She denies fever, N/V, abdominal pain, diarrhea, constipation, dysuria, or other new symptoms. Her BLE cellulitis is behzad red w/ increased warmth to touch today and slight weeping of clear serous fluid. Her bilateral feet and lower leg edema is 1+ and much unchanged from yesterday. She denies leg pain, or itching. Legs have been frequently resting in bed instead of dependent to reduce the swelling. Remains on HFR precautions. Nursing staff reports SBGM readings after starting Metformin now 137-224 w/ patient still refusing SSI; O2 Sats last 24 hrs 90-98% on O2 3L/NC; patient reported resistant to ambulating w/ asst in room despite lots of staff encouragement for same. Objective: Vitals: T=98 F, P=106, R=22, BJ=040/76, SPO2=98 General: Lying semi-fowlers position in bed w/ feet up in bed. No signs of distress or discomfort noted. Speaks freely when ASSISTANT IN NURSING enters room. In good spirits. HEENT: PERRLA: No redness or discharge. Pharynx w/o injection, PND, lesions. No nasal discharge or sneezing. Very [place]. Neck: Supple; NT. No masses or lymphadenopathy. Lungs: BS somewhat diminished throughout w/ bibasilar crackles. Rare TNP cough on exam. No wheezing, or rhonchi. Respiration easy and regular w/o retractions at rest. O2 Sat currently 83% after coughing spell w/ increase 92% in 2-3 minutes w/ O2 @ 3L/NC. CVS: RRR; No murmurs, gallops, or irregularities. PPP 1+/4+ w/ 1+ bilateral edema. Abdomen: Obese. Colostomy bag intact RUQ area w/ healthy pink stoma and moderate amt med-dark brown liquid stool. NT, NM, JOCELIN/SO present. M/S: HERNANDEZ fairly well w/ BLE limited due to edema, osteoarthritis, obesity, and mild weakness. BLE w/ no tenderness to palpation of gao areas and 1+ edema bilaterally knees to feet. Neurological: A/O X4. Responds when spoken to (visitor using a loud voice). Responds best when addressed from her front and able to see you are speaking with her. No evidence of pain at present. Skin: Generalized dryness of skin w/ notable Rx cream BLE w/ recent flaky skin in region removed w/ nurse gentle cleansing of the area. No bleeding. LLE has 2 10cent size dried old scabs w/ mild serous fluid oozing. BLE mild nielsen red stasis dermatitis slightly warmer to touch than yesterday. Lab/Tests/Diagnostic Imaging: No new result for radiology today. Laboratory Results WBC 20.87 K/ul (4.6-10.2) H 05/17/19 05:12 RBC 3.39 10^6/ul (4.20-5.40) L 05/17/19 05:12 Hgb 9.9 g/dl (12.0-16.0) L 05/17/19 05:12 Hct 32.0 % (37.0-47.0) L 05/17/19 05:12 MCV 94.4 fl (81.0-99.0) 05/17/19 05:12 MCH 29.2 pg (27.0-31.0) 05/17/19 05:12 MCHC 30.9 (31.8-35.4) L 05/17/19 05:12 RDW Coeff of [place] 15.8 % (11.6-14.8) H 05/17/19 05:12 Plt Count 301 10^3/uL (140-440) 05/17/19 05:12 Immature Gran % (Auto) 1.5 % (0.0-5.0) 05/17/19 05:12 Neut % (Auto) 89.9 % (42.2-75.2) H 05/17/19 05:12 Lymph % (Auto) 4.9 (10.0-50.0) L 05/17/19 05:12 [place] % (Auto) 3.6 (0-10) 05/17/19 05:12 Eos % (Auto) 0.0 % (0.0-7.0) 05/17/19 05:12 Baso % (Auto) 0.1 % (0.0-3.0) 05/17/19 05:12 Immature Gran # (Auto) 0.3 (0.0-1.0) 05/17/19 05:12 Neut # (Auto) 18.8 K/ul (2.0-6.9) H 05/17/19 05:12 Lymph # (Auto) 1.0 K/uL (0.60-3.4) 05/17/19 05:12 [place] # (Auto) 0.8 K/uL (0.4-2.0) 05/17/19 05:12 Eos # (Auto) 0.0 K/ul (0.0-0.7) 05/17/19 05:12 Baso # (Auto) 0.0 K/uL (0-0.2) 05/17/19 05:12 Puncture Site Rbrac 05/15/19 01:03 O2 Saturation 95.0 % (95-100) 05/15/19 01:03 ABG pH 7.422 (7.35-7.45) 05/15/19 01:03 ABG pCO2 52.0 mmHg (35-45) H 05/15/19 01:03 ABG pO2 73.0 mmHg (85-100) L 05/15/19 01:03 ABG HCO3 33.9 (22.0-26.0) H 05/15/19 01:03 ABG Total CO2 35 (22.0-28.0) H 05/15/19 01:03 ABG Base Excess 9 (-2.0-2.0) H 05/15/19 01:03 Cm Test + 05/15/19 01:03 O2 Delivery Device [facility] 05/15/19 01:03 Oxygen Liter Flow 3.00 05/15/19 01:03 FiO2 % 32.0 % 05/15/19 01:03 Sodium 136.4 mmol/L (134.5-145) 05/17/19 05:12 Potassium 4.41 mmol/L (3.5-5.1) 05/17/19 05:12 Chloride 98.3 mmol/L (98-107) 05/17/19 05:12 Carbon Dioxide 31.2 mmol/L (22-30.0) H 05/17/19 05:12 Anion Gap 11.31 05/17/19 05:12 BUN 19.1 mg/dL (7-17) H 05/17/19 05:12 Creatinine 0.83 mg/dL (0.60-1.30) 05/17/19 05:12 Estimated GFR (MDRD) 68.00 mL/min 05/17/19 05:12 BUN/Creatinine Ratio 23.01 05/17/19 05:12 Glucose 151.0 mg/dL (74-106) H 05/17/19 05:12 Hemoglobin A1c 5.78 (4.0-6.0) 05/16/19 05:03 Calcium 8.90 mg/dL (8.4-10.2) 05/17/19 05:12 Total Bilirubin 0.29 mg/dL (0.2-1.3) 05/17/19 05:12 AST 18.2 U/L (14-36) 05/17/19 05:12 ALT 11.6 U/L (0-35) 05/17/19 05:12 Alkaline Phosphatase 64.7 U/L (53-141) 05/17/19 05:12 NT-Pro-B Natriuret Pep 30.000 pg/mL (0-124) 05/15/19 00:05 Total Protein 6.82 g/dL (6.3-8.2) 05/17/19 05:12 Albumin 3.67 g/dL (3.5-5.0) 05/17/19 05:12 Globulin 3.15 05/17/19 05:12 Albumin/Globulin Ratio 1.16 05/17/19 05:12 Urine Color Yellow (YELLOW) 05/16/19 07:53 Urine Clarity Clear (CLEAR) 05/16/19 07:53 Urine pH 5.5 (5-9) 05/16/19 07:53 Ur Specific [place] 1.025 (1.005-1.030) 05/16/19 07:53 Urine Protein Negative (NEGATIVE) 05/16/19 07:53 Urine Glucose (UA) Negative (NEGATIVE) 05/16/19 07:53 Urine Ketones Negative (NEGATIVE) 05/16/19 07:53 Urine Blood Negative (NEGATIVE) 05/16/19 07:53 Urine Nitrite Negative (NEGATIVE) 05/16/19 07:53 Urine Bilirubin Negative (NEGATIVE) 05/16/19 07:53 Urine Urobilinogen 0.2 (0.2) 05/16/19 07:53 Ur Leukocyte Esterase Negative (NEGATIVE) 05/16/19 07:53 (1) COPD with acute bronchitis: Status: Chronic Code(s): J44.1 - Chronic obstructive pulmonary disease with (acute) exacerbation SNOMED Code(s): 20596153 (2) Chronic respiratory failure with hypoxia, on home oxygen therapy: Status: Chronic Code(s): J96.11 - Chronic respiratory failure with hypoxia; Z99.81 - Dependence on supplemental oxygen SNOMED Code(s): 181345802 (3) Bilateral lower leg cellulitis: Status: Acute Code(s): L03.116 - Cellulitis of left lower limb SNOMED Code(s): 618557768 (4) Stasis dermatitis of both legs: Status: Chronic Code(s): I83.11 - Varicose veins of right lower extremity with inflammation; I83.12 - Varicose veins of left lower extremity with inflammation SNOMED Code(s): 99641588 (5) Tobacco abuse disorder: Status: Chronic Code(s): Z72.0 - Tobacco use SNOMED Code(s): 97794945 (6) Tobacco abuse counseling: Status: Acute Code(s): Z71.6 - Tobacco abuse counseling SNOMED Code(s): 467588695 (7) Hypertension, essential, benign: Status: Chronic Code(s): I10 - Essential (primary) hypertension SNOMED Code(s): 4062897 (8) Hypothyroidism: Status: Chronic SNOMED Code(s): 03911362 (9) Colostomy care: Status: Acute Code(s): Z43.3 - Encounter for attention to colostomy SNOMED Code(s): 310869313 (10) Colostomy present on admission: Status: Chronic Code(s): Z93.3 - Colostomy status SNOMED Code(s): 327118835 (11) Depression with anxiety: Status: Acute Code(s): F41.8 - Other specified anxiety disorders SNOMED Code(s): 02261991 (12) Decreased mobility and endurance: Status: Acute Code(s): Z74.09 - Other reduced mobility SNOMED Code(s): 9032995 (13) Edema of both lower extremities due to peripheral venous insufficiency: Status: Acute Code(s): I87.2 - Venous insufficiency (chronic) (peripheral) SNOMED Code(s): 26865771827000728 Plan: * Hyperglycemia d/t drugs--BGM 137-224 w/ recent 120's for last 24 hrs after starting Metformin ER 500mg PO daily. Somewhat improving w/ pt. denying DM hx. Suspect elevation d/t steroid IV tx. Will add Metformin ER 500mg PO QAM at present as pt. unwilling to do insulin. SBGM AC & HS. Hgb A1C result 5.78. Hyperglycemia 2/t steroid therapy. * Chronic Resp Failure with hypoxia, on constant home --O2 protocol w/ 3L/NC working well. Patient has been counseled on need for smoking cessation and education for family living with her for a few days to be smoking outside the home. Emphasized the need again for pt. smoking cessation and no one smoking in her home; dangers of smoking reinforced. (Chantix has been denied recently via her insurance plan.) Monitor VS & O2 Sat.; Con't O2 per protocol to also be used when ad tyesha. * Exacerbation COPD--See #1.; Note stable chronic anemia d/t chronic disease COPD and Leukocytosis increasing w/ additional doses of steroids as expected. Will con't IV steroids as benefits outweigh risks at this time.; Con't Symbicort w/ Albuterol HHN Q4hr.; Con't O2 per protocol/NC at present.; Serious COPD issues that needs stop tobacco, secondary smoke exposure, and overeating. * BLE cellulitis w/ Chronic Stasis Dermatitis--Con't Cefazolin IV and transition to PO ATB upon d/c as indicated.; Gentle Aquatic type soap cleanser to legs BID w/Gold Franco Cream followed by Nystatin powder tid; Wound clinic referral upon d/c. * Edema BLE likely d/t peripheral Venous Insufficiency--Admission Venous US BLE negative for DVT. Con't home meds (Lasix); Lovenox while in hospital. Patient refusing TEDS d/t cellulitis/dermatitis; nursing staff to ambulate patient to chair and 5 other times a day w/ assistance w/ patient not always participating. However, she has started ambulation and exercise w/ pt. walking 75 feet in the hallway and able to rest in chair and then return to her room w/ 1 asst and using rollator. Would be beneficial for [facility] w/ PT at home upon d/c. Will discuss w/ PT. * Benign Essential HTN--Stable.; Monitor VS; Con't home meds; Cardiac diet. * Decreased Mobility & Endurance w/ High Risk Falls--Con't HFR precautions; PT evaluation and then increase patient activity. These will all be challenging goals as the patient complains frequently re: having to call for assistance for bedside commode w/ safety concerns and HFR protocol explained numerous times to her by all staff. Case mgmt, Johnny, aware of challenges w/ mobility and family soon moving out to leave patient on her own. Patient reality concerning her safety seems to be mainly denial. Discussed w/ [facility] staff and they will consult patient for evaluation and assist as allowed for the patient. PT as ordered see Edema BLE entry & PT documentation. * Tobacco Abuse Disorder w/ Counseling -- See #1. * Depression w/ Anxiety--Stable at present. NO SI or hallucinations.; Con't home meds. * Hypothyroidism --Con't home meds. * Colostomy POA--Site appears healthy. Colostomy care given w/ nursing asst. No issues at present. Disposition Expected length of stay 48-72 hrs. Plan d/c tomorrow w/ 3rd day of IV antibiotic therapy completed. Home RX Keflex 500mg PO QID X 5 days w/ Diflucan 400mg PO daily now, then d/c w/ 200mg PO daily X 14 days; this may also help with the current BLE cellulitis. Will need steroids w/o taper on d/c and follow-up w/ PCP in 3days to adjust meds as needed. Will send home as refuses SNF or any other living arrangements---requesting help from Case Mgmt for [facility] animal care giver and will benefit w/ nurse evaluation and medication management. Pt. Care Time today : 55 minutes including Case Management, Nurse Huddle, and discharge discussions/plans.
[2019-05-17] MEDS ORDERED: DIFLUCAN PO ONE (18:06)
[2019-05-18] MEDS: SOLU-MEDROL 40 MG IVP SCH ×2 (01:02→09:01)
[2019-05-18] MEDS: ALBUTEROL 0.083% NEB NEB SCH ×4 (02:09→13:49)
[2019-05-18] MEDS: SYNTHROID PO SCH (05:51)
[2019-05-18] MEDS: LASIX TAB PO SCH (05:51)
[2019-05-18] MEDS: ANCEF 1 GM/50 ML D5W 1 GM/50 ML BAG IV SCH (05:51)
[2019-05-18] MEDS: GOLD BOND ULTIMATE HEALING TP SCH (09:02)
[2019-05-18] MEDS: SYMBICORT 160-4.5 MCG INHALER IH SCH (09:03)
[2019-05-18] MEDS: NYSTOP POWDER TP SCH (09:03)
[2019-05-18] MEDS: ANTIVERT PO SCH (09:04)
[2019-05-18] MEDS: LEXAPRO PO SCH (09:04)
[2019-05-18] MEDS: GLUCOPHAGE PO SCH (09:04)
[2019-05-18] MEDS: MICRO-K CAP PO SCH (09:04)
[2019-05-18] MEDS: LOVENOX SUBCUT SCH (09:04)
[2019-05-18 14:20] VITALS: BP 124/68; TEMP 98.1
--- NOTE | 2019-05-18 15:06 | PCM.DC ---
Final Diagnosis: Acute exacerbation of COPD complicated w/ chronic respiratory failure Bilateral LE Cellulitis. (1) COPD with acute bronchitis: Status: Chronic Code(s): J44.1 - Chronic obstructive pulmonary disease with (acute) exacerbation SNOMED Code(s): 65319282 (2) Chronic respiratory failure with hypoxia, on home oxygen therapy: Status: Chronic Code(s): J96.11 - Chronic respiratory failure with hypoxia; Z99.81 - Dependence on supplemental oxygen SNOMED Code(s): 040657779 (3) Bilateral lower leg cellulitis: Status: Acute Code(s): L03.116 - Cellulitis of left lower limb SNOMED Code(s): 023777220 (4) Edema of both lower extremities due to peripheral venous insufficiency: Status: Acute Code(s): I87.2 - Venous insufficiency (chronic) (peripheral) SNOMED Code(s): 60540446094427430 (5) Stasis dermatitis of both legs: Status: Chronic Code(s): I83.11 - Varicose veins of right lower extremity with inflammation; I83.12 - Varicose veins of left lower extremity with inflammation SNOMED Code(s): 49906725 (6) Tobacco abuse disorder: Status: Chronic Code(s): Z72.0 - Tobacco use SNOMED Code(s): 31773735 (7) Tobacco abuse counseling: Status: Acute Code(s): Z71.6 - Tobacco abuse counseling SNOMED Code(s): 346618838 (8) Hypertension, essential, benign: Status: Chronic Code(s): I10 - Essential (primary) hypertension SNOMED Code(s): 8988186 (9) Hypothyroidism: Status: Chronic SNOMED Code(s): 60036930 Qualifiers: Hypothyroidism type: unspecified Qualified Code(s): E03.9 - Hypothyroidism, unspecified (10) Colostomy care: Status: Acute Code(s): Z43.3 - Encounter for attention to colostomy SNOMED Code(s): 199661001 (11) Colostomy present on admission: Status: Chronic Code(s): Z93.3 - Colostomy status SNOMED Code(s): 822897009 (12) Depression with anxiety: Status: Acute Code(s): F41.8 - Other specified anxiety disorders SNOMED Code(s): 24700640 (13) Decreased mobility and endurance: Status: Acute Code(s): Z74.09 - Other reduced mobility SNOMED Code(s): 0835377 Reason for Hospitalization: Shortness of Breath increasing w/ use of chronic home O@ per NC. Not responding to steroids and antibiotics. Needed further antibiotics, IV Steroids and round the clock nebulizer treatments. Most si gnificant was for patient to get out of her home environment where her temporary live-in daughter who is a heavy smoker and smokes in the house would not be around her to improve her lung function. Patient has considerably cut down on her tobacco use and doesn't smoke in hospital w/ Nicotine patch use. Prognosis at Discharge: Prognosis is fair due to patient muliple health issues, living environment that is smoke filled, limited exercise and socialization, fatigue due to disease w/ difficulty taking nebs and probably medications, and likely poor living conditions w/ limited finances. Case Management has a Senior program that hopefully help her with some MD visits and continue or increase her home helper services. Patient was not receptive to [facility] program, but was introduced to it by their staff and may be her next admission will consider the program. She a frequent and well-known to this facility and probably return unless major changes happen in her life. Condition at Discharge: Physical had been improving w/ the first noted episode of late night confusion, anxiety, yelling and anger with the nurses over bed alarm going off, and having to be held in the hospital. Patient became very angry, called her daughter and said she was going home NOW! Daughter came to hospital and slept at her bedside w/ the patient rescued with a familiar face of a daughter she obviously loves very much. By morning she settled and was ready for transfer by her daughter to SNF. Since she has been living at home alone with much interaction with her daughter, there may have been masking in the past of some serious dementia or other physical or mental health issues. Condition will be guarded because of these events. Hopefully she will continue to improve as she absorbs more antibiotics in her system. Medications at Discharge: Ambulatory Orders Medication Instructions Recorded albuterol sulfate 1 vial NEB RTQ4H PRN 05/23/18 levothyroxine 75 mcg PO DAILY #30 tab-cap 12/26/18 melatonin 10 mg PO BEDTIME PRN 02/21/19 nystatin [Nystop] 1 applic TOPICAL TID #1 g 02/24/19 meclizine 25 mg tablet 25 mg PO BID #60 tab-cap 02/27/19 escitalopram oxalate 20 mg tablet 10 mg PO QDAY 03/06/19 silver sulfadiazine 1 % topical 1 applic TP BID #400 gm 03/06/19 cream potassium chloride 10 mEq 10 meq PO BID #180 tab-cap 04/12/19 tablet,extended release albuterol sulfate 90 mcg/actuation 1 - 2 puff INHALATION Q4-6H PRN #1 05/13/19 aerosol inhaler ih Symbicort 2 puff INHALATION BID 05/14/19 furosemide [Lasix] 20 mg PO DAILY 05/14/19 lorazepam [Ativan] 0.5 mg PO BEDTIME PRN 05/14/19 cephalexin 500 mg PO QID #20 cap 05/18/19 fluconazole 200 mg PO ONCE #1 tab NS MDD Take 05/18/19 after antibiotics done metformin 500 mg PO DAILY #10 tab 05/18/19 prednisone 40 mg PO DAILY #20 tab NS 05/18/19 Lab/Diagnostics: Laboratory Results WBC 16.15 K/ul (4.6-10.2) H 05/18/19 07:08 RBC 3.10 10^6/ul (4.20-5.40) L 05/18/19 07:08 Hgb 9.1 g/dl (12.0-16.0) L 05/18/19 07:08 Hct 29.3 % (37.0-47.0) L 05/18/19 07:08 MCV 94.5 fl (81.0-99.0) 05/18/19 07:08 MCH 29.4 pg (27.0-31.0) 05/18/19 07:08 MCHC 31.1 (31.8-35.4) L 05/18/19 07:08 RDW Coeff of [place] 15.9 % (11.6-14.8) H 05/18/19 07:08 Plt Count 259 10^3/uL (140-440) 05/18/19 07:08 Immature Gran % (Auto) 3.7 % (0.0-5.0) 05/18/19 07:08 Neut % (Auto) 85.6 % (42.2-75.2) H 05/18/19 07:08 Lymph % (Auto) 6.2 (10.0-50.0) L 05/18/19 07:08 Gilchrist % (Auto) 4.3 (0-10) 05/18/19 07:08 Eos % (Auto) 0.1 % (0.0-7.0) 05/18/19 07:08 Baso % (Auto) 0.1 % (0.0-3.0) 05/18/19 07:08 Immature Gran # (Auto) 0.6 (0.0-1.0) 05/18/19 07:08 Neut # (Auto) 13.8 K/ul (2.0-6.9) H 05/18/19 07:08 Lymph # (Auto) 1.0 K/uL (0.60-3.4) 05/18/19 07:08 Gilchrist # (Auto) 0.7 K/uL (0.4-2.0) 05/18/19 07:08 Eos # (Auto) 0.0 K/ul (0.0-0.7) 05/18/19 07:08 Baso # (Auto) 0.0 K/uL (0-0.2) 05/18/19 07:08 Puncture Site Rbrac 05/15/19 01:03 O2 Saturation 95.0 % (95-100) 05/15/19 01:03 ABG pH 7.422 (7.35-7.45) 05/15/19 01:03 ABG pCO2 52.0 mmHg (35-45) H 05/15/19 01:03 ABG pO2 73.0 mmHg (85-100) L 05/15/19 01:03 ABG HCO3 33.9 (22.0-26.0) H 05/15/19 01:03 ABG Total CO2 35 (22.0-28.0) H 05/15/19 01:03 ABG Base Excess 9 (-2.0-2.0) H 05/15/19 01:03 Cm Test + 05/15/19 01:03 O2 Delivery Device Banner 05/15/19 01:03 Oxygen Liter Flow 3.00 05/15/19 01:03 FiO2 % 32.0 % 05/15/19 01:03 Sodium 135.8 mmol/L (134.5-145) 05/18/19 07:08 Potassium 4.05 mmol/L (3.5-5.1) 05/18/19 07:08 Chloride 98.1 mmol/L (98-107) 05/18/19 07:08 Carbon Dioxide 30.2 mmol/L (22-30.0) H 05/18/19 07:08 Anion Gap 11.55 05/18/19 07:08 BUN 18.8 mg/dL (7-17) H 05/18/19 07:08 Creatinine 0.78 mg/dL (0.60-1.30) 05/18/19 07:08 Estimated GFR (MDRD) 73.00 mL/min 05/18/19 07:08 BUN/Creatinine Ratio 24.10 05/18/19 07:08 Glucose 178.7 mg/dL (74-106) H 05/18/19 07:08 Hemoglobin A1c 5.78 (4.0-6.0) 05/16/19 05:03 Calcium 8.13 mg/dL (8.4-10.2) L 05/18/19 07:08 Total Bilirubin 0.25 mg/dL (0.2-1.3) 05/18/19 07:08 AST 15.0 U/L (14-36) 05/18/19 07:08 ALT 11.6 U/L (0-35) 05/18/19 07:08 Alkaline Phosphatase 63.4 U/L (53-141) 05/18/19 07:08 NT-Pro-B Natriuret Pep 30.000 pg/mL (0-124) 05/15/19 00:05 Total Protein 6.06 g/dL (6.3-8.2) L 05/18/19 07:08 Albumin 3.24 g/dL (3.5-5.0) L 05/18/19 07:08 Globulin 2.82 05/18/19 07:08 Albumin/Globulin Ratio 1.14 05/18/19 07:08 Urine Color Yellow (YELLOW) 05/16/19 07:53 Urine Clarity Clear (CLEAR) 05/16/19 07:53 Urine pH 5.5 (5-9) 05/16/19 07:53 Ur Specific [place]ma 1.025 (1.005-1.030) 05/16/19 07:53 Urine Protein Negative (NEGATIVE) 05/16/19 07:53 Urine Glucose (UA) Negative (NEGATIVE) 05/16/19 07:53 Urine Ketones Negative (NEGATIVE) 05/16/19 07:53 Urine Blood Negative (NEGATIVE) 05/16/19 07:53 Urine Nitrite Negative (NEGATIVE) 05/16/19 07:53 Urine Bilirubin Negative (NEGATIVE) 05/16/19 07:53 Urine Urobilinogen 0.2 (0.2) 05/16/19 07:53 Ur Leukocyte Esterase Negative (NEGATIVE) 05/16/19 07:53 The following are radiology results from tests performed this visit at [facility]: Diagnostic Imaging CT Report : [id number] Patient: LUISA CHAVARRIA Acct:[id number] Medical Record: [id number] : 1950 Loc: ED Age/Sex: 69 / F ADM Status: REG ER Date of Service: 05/14/19 Ordering Physician: JULIETA VILLEDA MD Procedure(s): CT CHEST W/O CONTRAST Report Number(s): [id number] Accession Number(s): [id number] cc: NANY MICHAEL APRN; JULIETA VILLEDA MD EXAM: CT scan thorax without contrast HISTORY: Dyspnea COMPARISON: CT scan thorax 02/20/2019 FINDINGS: Contiguous axial images obtained through the thorax without contrast utilizing 5-mm collimation. Sagittal and coronal reconstructions were imaged and reviewed.. The thoracic inlet is unremarkable. The heart is normal in size with coronary calcification. Calcified lymph nodes are seen in the pretracheal right hilar region. Benign granulomatous changes at the right lung base.. There is scarring versus atelectasis within the inferior lingular segment.. Pleural-based nodular opacity measuring 1.5 cm medial right lung base may represent round atelectasis and merits follow-up.. There is a right upper quite colostomy.. Bone windows reveals no evidence of lytic or blastic lesions. IMPRESSION: Atelectasis versus scarring inferior lingular segment. Probable round atelectasis medial right lung base which merits follow-up. No consolidation or effusion. Coronary ASVD. Dictated and Signed By: TERESA KOVACS Dictated Date/Time: 05/15/1933 Transcribed Date/Time: 01/08/20 0034 Signed Date/Time: 05/15/19 0045 Bilateral Venous Doppler Study Lower Extremities Patient: LUISA CHAVARRIA Acct:[id number] Medical Record: [id number] : 1950 Loc: [facility] Room/Bed: Age/Sex: 69 / F ADM Status: ADM IN Date of Service: 05/15/19 Ordering Physician: JULIETA VILLEDA MD Procedure(s): U/S VENOUS SCAN JESSE LEGS Report Number(s): [id number] Accession Number(s): [id number] cc: NANY MICHAEL APRN; JULIETA VILLEDA MD EXAM: Ultrasound venous Doppler right and left lower extermity HISTORY: Leg swelling COMPARISON: 08/04/2017 TECHNIQUE: Venous duplex ultrasound of the right and left lower extremity was performed using color, carlisle-scale, and Doppler flow imaging. FINDINGS: There is normal color flow and compression of the right and left common femoral, greater saphenous, profunda femoral, femoral, popliteal, (right) peroneal veins without evidence of intraluminal thrombus. The left peroneal vein and the bilateral posterior tibial and anterior tibial veins not visualized. IMPRESSION: No evidence for right or left lower extremity deep venous thrombosis at the visualized levels, with veins in the bilateral calf not visualized Dictated and Signed By: ION VERMA MD Dictated Date/Time: 05/15/19 1326 Transcribed Date/Time: 05/15/19 1326 Signed Date/Time: 05/15/19 1332 Education Provided to Patient and Family: 1. Medications on d/c, activity, smoking cessation, secondary smoking exposure cessation, setting alarm for nebulizer treatments every 4 hrs when her cough, chest congestio, or SOB are worsening, and medication compliance discussed at length with patient at is assocation with her staying well and out of breathing distress. Wear O2/NC @ 2L all the time even when outside the home. 2. Important to call PCP Nany Michael APRN and make appt. for 3 days or sooner problems. Importance of keeping appts. and working with her provider as a team. Together Everyone Achieves More--and the goal is to keep her at her best help! 3. Refused Flu & Pneumovax again this visit---recommend talking w/ PCP next visit and get her vaccinations up to date for her wellness and health safety. Says she will. 4. Force fluids. Eat healthy as directed --COPD diet. 5. Recommend referral from her PCP to see higher level of wound care as present treatments are not responding well. Wound culture was done in hospital and is so far showing No growth. Needs help at home with wound care, but per patient that will never happen. [facility] nurse if available to assess her skin and help with dressings and also assess patient and monitor meds. 6. Handouts also given for most of these education points. Patient verbalizes understanding and except for vaccines on d/c agrees w/ plan of care. Unfortunately her family was never present while she was hospitalized and only came very briefly a few minutes before leaving for d/c. Follow-ups: 1. F-U w/ PCP, Nany Michael APRN, in 3 days or sooner problems. 2. F-U in ER or call 911 if symptoms return and are worsened. See symptoms to call PCP for and those to come to ER in handouts given and discussed. 3. Referral to grants specialist for chronic cellulitis not responding to current therapies. Discharge Disposition: Home Hospital Course: Day 1 05/15/2019 Luisa Chavarria is a 69 yo female patient of Nany Michael APRN, presenting to [facility] ER 05/14/2019 approx. 23:00 via EMS w/ dyspnea and increasing edema and redness of bilateral lower extremities w/ onset in last 3-5 days. Patient notes increasing difficulty sleeping in her home hospital bed the last 3-5 days w/ SOB and recliner orthopnea. There has also been associated worsening of her chronic stasis dermatitis, and probable PAD per ER physician, Dr. Tabares. Pt. notes "elevate my head and then my legs, but I could never get comfortable enough to breath" w/ home O2 @ 3L/NC. There is associated intermittent fatigue and weakness, rare cough w/ small amount clear sputum, BRIGGS, wheezing, and unknown amount of wt. gain per pt. "d/t increased swelling" in BLE over the last 2-4 weeks. Patient has chronic stasis dermatitis and probable PAD; notes tightness in BLE w/ clear fluid weeping intermittently (not enough for dressings??) but denies pain. Legs are swollen enough that she has difficulty ambulating at home, but feels she is stable. Old records reviewed and note patient saw her PCP, Ms Michael, recently w/ stable COPD at that time but treated for BLE cellulitis w/ Doxycycline & Silvadene cream w/ symptoms now worsening. Plan: Chronic Resp Failure with hypoxia, on constant home --O2 per protocol; Patient has heavy smell of tobacco smoke w/ toxic house of same smell reported to ER MD. No nicotine patch on as ordered per PCP.: Will discuss Smoking Cessation tomorrow as patient not willing for more conversation at this time.; Monitor labs, VS & O2 Sat. Exacerbation COPD--See #1.; Note chronic anemia d/t chronic disease COPD. Will con't IV steroids as benefits outweigh risks at this time.; Con't Symbicort (home med) w/ Albuterol HHN Q4hr.; Con't O2 per protocol/NC at present. BLE cellulitis w/ Chronic Stasis Dermatitis--Just completed Doxycycline tx for 10 days. Con't Cefazolin IV ordered per ER and transition to PO ATB upon d/c as indicated.; nursing staff to assist with needed body cleanliness; Cont. home Nystatin powder tid; Wound clinic referral upon d/c. Edema BLE likely d/t peripheral Venous Insufficiency--Pending results for admission Venous US BLE. DVT prophylaxis at present Lovenox; refuses TEDS or SCD's at present. Con't home meds (Lasix); Lovenox while in hospital. Nursing staff to ambulate patient to chair and 5 other times a day w/ assistance. Benign Essential HTN--Stable.; Monitor VS; Con't home meds; Cardiac diet. Decreased Mobility & Endurance w/ High Risk Falls--HFR precautions; PT evaluation ordered. Patient seems to be content to just sit all the time and go from bed to bedside commode; admits to very limited physical activity at home. Case mgmt, Johnny, present during [employer] visit and will look at other alternatives for asst. w/ ADL's upon d/c. Patient is intent on returning home to live by herself and she thinks she is doing okay. Have talked briefly of fall risk complications--fx hip, fx bones, SDH, and other complications. Patient thinks she is managind well by herself. Tobacco Abuse Disorder w/ Counseling -- See #1. Due to patient disposition today, will have counseling talk tomorrow; hopefully will be more receptive then. No smoking zone w/ nicotine patch refused. Depression w/ Anxiety--Stable at present. NO SI or hallucinations.; Con't home meds. Hypothyroidism --Con't home meds. Colostomy POA--Site appears healthy. Colostomy care given w/ nursing asst. No issues at present. Day 2 05/16/2019 Patient seen for daily rounds @ 6:20AM 05/16/2019. Patient sitting up at bedside noting she is breathing easier this AM. Cough is still present higinio after Q4hr neb treatments w/ occasional clear sputum. O2 remains at 3L/NC. Patient complains that she is hungry, but otherwise denies any other issues at this time. Denies pain, headache, dizziness, SOB except her "usual" BRIGGS, N/V, abdominal pain, diarrhea, constipation, BLE discomfort, or other new issues. Sleep is usual as at home w/ occasional restlessness. Notes her legs don't feel as swollen today. Nursing staff reports patient is mainly staying in bed and is upset that she has to call them when she wants to move to the commode. Concerns by HS nurse that her 2 family members will soon be moving out of the patient residence and patient will be left alone w/ poor mobility. Patient remains on HFR protocol. Objective: Vitals: T=97.9 F, P=85, R=20, TU=834/73, SPO2=95 General: Sitting up at bedside w/ O2 NC intact. HEENT: PERRLA: No redness or discharge. Pharynx w/o injection, PND, lesions. No nasal discharge or sneezing. Very [place]. Neck: Supple; NT. No masses or lymphadenopathy. Lungs: BS present throughout w/ bibasilar crackles s/p recent Albuterol Neb [place]. No cough, wheezing, or rhonchi. Resp. easy and regular at rest w/ O2 @ 3L/NC. CVS: RRR; No murmurs, gallops, or irregularities. PPP 1+/4+ w/ 1+ to trace edema. Abdomen: Obese. Colostomy bag intact RUQ area w/ healthy pink stoma and moderate amt med-dark brown liquid stool. NT, NM, JOCELIN/SO present. M/S: HERNANDEZ fairly well w/ BLE limited due to edema, osteoarthritis, obesity, and mild weakness. BLE w/ tenderness to palpation of gao areas and 1+ edema. Neurological: A/O X4. Responds when spoken to (visitor using a loud voice). Responds best when addressed from her front and able to see you are speaking with her. Gait waddling w/ needed rollator for stability and 1 asst staff. No evidence of pain at present. Skin: Generalized dryness of skin w/ flaking. BLE mild nielsen red stasis dermatitis presentation w/ mild intermittent clear serous weepage increased w/ movement. No ulcerations. Plan: Hyperglycemia d/t drugs--FBS this AM 192 w/ pt. denying DM hx. Suspect elevation d/t steroid IV tx. Will add Metformin ER 500mg PO QAM at present as pt. unwilling to do insulin. SBGM AC & HS. Will check Hgb A1C w/ this AM labs. Chronic Resp Failure with hypoxia, on constant home --O2 Patient again counseled on need for smoking cessation and education for family living with her for a few days to be smoking outside the home. Nursing staff has been diligent bathing and washing patient hair to get all smoke off her body. Secondary smoke exposure avoidance emphasized. Patient has tried nicotine patch but unwilling at present. Chantix has been denied recently via her insurance plan. 25 minutes on Tobacco Cessation plan.; Monitor VS & O2 Sat.; Con't O2 per protocol to also be used when ad tyesha. Exacerbation COPD--See #1.; Note chronic anemia d/t chronic disease COPD and Leukocytosis increasing w/ additional doses of steroids as expected. Will con't IV steroids as benefits outweigh risks at this time.; Con't Symbicort w/ A lbuterol HHN Q4hr.; Con't O2 per protocol/NC at present.; Serious COPD issues that needs stop tobacco, secondary smoke exposure, and overeating. BLE cellulitis w/ Chronic Stasis Dermatitis--Con't Cefazolin IV and transition to PO ATB upon d/c as indicated.; Gentle Aquatic type soap cleanser to legs BID w/Nystatin powder tid; Wound clinic referral upon d/c. Edema BLE likely d/t peripheral Venous Insufficiency--Admit Venous US BLE negative for DVT. Con't home meds (Lasix); Lovenox while in hospital. No TEDS d/t cellulitis/dermatitis; nursing staff to ambulate patient to chair and 5 other times a day w/ assistance. Benign Essential HTN--Stable.; Monitor VS; Con't home meds; Cardiac diet. Decreased Mobility & Endurance w/ High Risk Falls--Con't HFR precautions; PT evaluation and then increase patient activity. These will all be challenging goals as the patient complains frequently re: having to call for assistance for bedside commode w/ safety concerns and HFR protocol explained numerous times to her by all staff. Case mgmt, Johnny, aware of challenges w/ mobility and family soon moving out to leave patient on her own. Patient reality concerning her safety seems to be mainly denial. Discussed w/ [facility] staff and they will consult patient for evaluation and assist as allowed for the patient. Tobacco Abuse Disorder w/ Counseling -- See #1. Depression w/ Anxiety--Stable at present. NO SI or hallucinations.; Con't home meds. Hypothyroidism --Con't home meds. Colostomy POA--Site appears healthy. Colostomy care given w/ nursing asst. No issues at present. Day 3 05/17/2019 Luisa Chavarria found resting in bed in semi-shah's position. States she slept better last night and that her day was good. Notes intermittent tight cough w/ occasional production of clear thick sputum. Denies SOB at rest. BRIGGS has slightly lessened w/ O2 per NC @ 3L. She has been up in chair for meals and walked only a few times in her room declining her nurse. However, PT notes she walked [address], sat in chair and rested, and then walked 35 feet back to her room w/ O2. She denies fever, N/V, abdominal pain, diarrhea, constipation, dysuria, or other new symptoms. Her BLE cellulitis is behzad red w/ increased warmth to touch today and slight weeping of clear serous fluid. Her bilateral feet and lower leg edema is 1+ and much unchanged from yesterday. She denies leg pain, or itching. Legs have been frequently resting in bed instead of dependent to reduce the swelling. Remains on HFR precautions. Nursing staff reports SBGM readings after starting Metformin now 137-224 w/ patient still refusing SSI; O2 Sats last 24 hrs 96-98% on O2 3L/NC; patient reported resistant to ambulating w/ asst in room despite lots of staff encouragement for same. Objective: Vitals: T=98 F, P=106, R=22, AH=368/76, SPO2=98 General: Lying semi-fowlers position in bed w/ feet up in bed. No signs of distress or discomfort noted. Good eye contact. Speaks w/o difficulty. HEENT: PERRLA: No redness or discharge. Pharynx w/o injection, PND, lesions. No nasal discharge or sneezing. Very [place]IK. Neck: Supple; NT. No masses or lymphadenopathy. Lungs: CTA w/ good breath sounds. No wheezing or rales. Note faint diminished bibasilar crackles. Rare TNP cough on exam. Wearing O2 @ 3L/NC. CVS: RRR; No murmurs, gallops, or irregularities. PPP 1+/4+ w/ 1+ bilateral edema. Abdomen: Obese. Colostomy bag intact RUQ area w/ healthy pink stoma and moderate amt med-dark brown liquid stool. NT, NM, JOCELIN/SO present. M/S: HERNANDEZ fairly well w/ BLE limited due to edema, osteoarthritis, obesity, and mild weakness. BLE w/ no tenderness to palpation of gao areas and 1+ edema bilaterally knees to feet. Neurological: A/O X4. Responds when spoken to (visitor using a loud voice). Responds best when addressed from her front and able to see you are speaking with her. No evidence of pain at present. Skin: Generalized dryness of skin w/ notable Rx cream BLE w/ recent flaky skin in region removed w/ nurse gentle cleansing of the area. No bleeding. LLE has 2 10cent size dried old scabs w/ mild serous fluid oozing. BLE mild nielsen red stasis dermatitis slightly warmer to touch than yesterday. Plan: *Hyperglycemia d/t drugs--BGM 137-224 w/ recent 120's for last 24 hrs after starting Metformin ER 500mg PO daily. Somewhat improving w/ pt. denying DM hx. Suspect elevation d/t steroid IV tx. Will add Metformin ER 500mg PO QAM at present as pt. unwilling to do insulin. SBGM AC & HS. Hgb A1C result 5.78. Hyperglycemia 2/t steroid therapy. *Chronic Resp Failure with hypoxia, on constant home --O2 protocol w/ 3L/NC working well. Patient has been counseled on need for smoking cessation and education for family living with her for a few days to be smoking outside the home. Emphasized the need again for pt. smoking cessation and no one smoking in her home; dangers of smoking reinforced. (Chantix has been denied recently via her insurance plan.) Monitor VS & O2 Sat.; Con't O2 per protocol to also be used when ad tyesha. *Exacerbation COPD--See #1.; Note stable chronic anemia d/t chronic disease COPD and Leukocytosis increasing w/ additional doses of steroids as expected. Will con't IV steroids as benefits outweigh risks at this time.; Con't Symbicort w/ Albuterol HHN Q4hr.; Con't O2 per protocol/NC at present.; Serious COPD issues that needs stop tobacco, secondary smoke exposure, and overeating. * BLE cellulitis w/ Chronic Stasis Dermatitis--Con't Cefazolin IV and transition to PO ATB upon d/c as indicated.; Gentle Aquatic type soap cleanser to legs BID w/Gold Franco Cream followed by Nystatin powder tid; Wound clinic referral upon d/c. *Edema BLE likely d/t peripheral Venous Insufficiency--Admission Venous US BLE negative for DVT. Con't home meds (Lasix); Lovenox while in hospital. Patient refusing TEDS d/t cellulitis/dermatitis; nursing staff to ambulate patient to chair and 5 other times a day w/ assistance w/ patient not always participating. However, she has started ambulation and exercise w/ pt. walking 75 feet in the hallway and able to rest in chair and then return to her room w/ 1 asst and using rollator. Would be beneficial for HHC w/ PT at home upon d/c. Will discuss w/ PT. *Benign Essential HTN--Stable.; Monitor VS; Con't home meds; Cardiac diet. *Decreased Mobility & Endurance w/ High Risk Falls--Con't HFR precautions; PT evaluation and then increase patient activity. These will all be challenging goals as the patient complains frequently re: having to call for assistance for bedside commode w/ safety concerns and HFR protocol explained numerous times to her by all staff. Case mgmt, Johnny, aware of challenges w/ mobility and family soon moving out to leave patient on her own. Patient reality concerning her safety seems to be mainly denial. Discussed w/ [facility] staff and they will consult patient for evaluation and assist as allowed for the patient. PT as ordered see Edema BLE entry & PT documentation. *Tobacco Abuse Disorder w/ Counseling -- See #1. *Depression w/ Anxiety--Stable at present. NO SI or hallucinations.; Con't home meds. *Hypothyroidism --Con't home meds. *Colostomy POA--Site appears healthy. Colostomy care given w/ nursing asst. No issues at present. Disposition Expected length of stay 48-72 hrs. Plan d/c tomorrow w/ 3rd day of IV antibiotic therapy completed. Home RX Keflex 500mg PO QID X 5 days w/ Diflucan 400mg PO daily now, then d/c w/ 200mg PO daily X 14 days; this may also help with the current BLE cellulitis. Will need steroids w/o taper on d/c and follow-up w/ PCP in 3days to adjust meds as needed. Will send home as refuses SNF or any other living arrangements---requesting help from Case Malachi for [facility] care services manager and will benefit w/ nurse evaluation and medication management Plan: Plan is unchanged from entry for Day #3 in above HOSPITAL COURSE note. See PATIENT EDUCATION section, also Disposition Time 75 minutes for travel arrangements as patient was noting she couldn't go home due to a dirty home and then next time because she had no one to come and get her. She had begun first thing in the AM telling WINDOWS SECURITY ANALYST and nurses that she wasn't going home today as her house wasn't clean. WINDOWS SECURITY ANALYST examined patient and talked with her 3-4 times assuring her that her lungs were clear now and pulse Ox was reading 96,97, and 98% each time we checked her. Time spent in reviewing chart, lab and radiology reports this visit and past to reassure patient of her improvement of COPD and that her BLE edema and cellulitis were chronic issues needing a second opinion and some [facility] assistance for her. Patient left in good spirits and was stable.
== END 2019-05-18 15:07 | disposition home or self-care (01) | DRG 204 ==
LOC: ED 23:31 → MEDSURG B 05-15 01:41
PROVIDERS: ADMIT Nurse Practitioner Family; ATTEND Nurse Practitioner Family
DX: J44.1 Chronic obstructive pulmonary disease with (acute) exacerbation; I83.11 Varicose veins of right lower extremity with inflammation; Z93.3 Colostomy status; L03.116 Cellulitis of left lower limb; Z99.81 Dependence on supplemental oxygen; I10 Essential (primary) hypertension; Z43.3 Encounter for attention to colostomy; T50.905A Adverse effect of unspecified drugs, medicaments and biological substances, initial encounter; I87.2 Venous insufficiency (chronic) (peripheral); Z71.6 Tobacco abuse counseling; Z72.0 Tobacco use; F41.8 Other specified anxiety disorders; Z74.09 Other reduced mobility; I83.12 Varicose veins of left lower extremity with inflammation; E03.9 Hypothyroidism, unspecified; J96.11 Chronic respiratory failure with hypoxia; R06.02 Shortness of breath

== ENCOUNTER 2019-06-10 23:20 | Inpatient (IN) ==
[2019-06-11] LABS: HEMATOCRIT 33.5 % (37.0-47.0)
--- NOTE | 2019-06-11 00:57 | ED.PDOC ---
General ED Provider: Dr. JULIETA VILLEDA Chief Complaint: Extremity Swelling/Pain Stated Complaint: my legs are swollen and red----the insurance company told me to come to the er Time Seen by Physician: 00:59 Mode of Arrival: Ambulance Information Source: Patient Primary Care Provider: NANY ALSTON APRN Nursing and Triage Documentation Reviewed and Agree: Yes Does patient meet sepsis criteria?: No System Inflammatory Response Syndrome: Not Applicable Sepsis Protocol: For patient's 13 years and over: Temp is 96.8 and below OR 101 and greater Pulse >90 BPM Resp >20/minute Acutely Altered Mental Status Are patient's symptoms suggestive of a new infection, such as: -Pneumonia -Skin, Soft Tissue -Endocarditis -UTI -Bone, Joint Infection -Implantable Device -Acute Abdominal Infection -Wound Infection -Meningitis -Blood Stream Catheter Infection -Unknown Skin Complaint Exam Skin Rash/Itching Complaint/Exam Onset/Duration: 3 days Symptoms Are: Still present Initial Severity: Mild Current Severity: Mild Location: lower extremities Aggravating: Reports None Alleviating: Reports None Skin Findings: Present Dry scaly skin and Weeping skin Review of Systems Review Of Systems Constitutional: Reports No symptoms Eyes: Reports No symptoms Ears, Nose, Mouth, Throat: Reports No symptoms Respiratory: Reports No symptoms Cardiac: Reports No symptoms GI: Reports No symptoms : Reports No symptoms Musculoskeletal: Reports No symptoms Skin: Reports Rash Neurological: Reports No symptoms Endocrine: Reports No symptoms Hematologic/Lymphatic: Reports No symptoms All Other Systems: Reviewed and Negative [facility] Medical History (Updated 06/11/19 @ 00:59 by JULIETA VILLEDA MD) BPV (benign positional vertigo) (Chronic) Chronic obstructive pulmonary disease Chronic respiratory failure with hypoxia, on home oxygen therapy (Chronic) Colostomy present on admission (Chronic ~05/16/19) Decreased mobility and endurance (Acute) Depression with anxiety (Acute) Diverticular disease (Inactive) Dyslipidemia (Inactive) Edema of both lower extremities due to peripheral venous insufficiency (Acute) History of home oxygen therapy (Inactive) History of pneumonia (Acute) Hypertension, essential, benign (Chronic) Hypothyroidism (Chronic) Obesity Stasis dermatitis of both legs (Chronic) Tobacco abuse disorder (Chronic) Social History (Updated 05/15/19 @ 03:12 by MEKHI KUMARI RN) Smoking and tobacco status: Current every day smoker Tobacco type: cigarettes Smoking cigarettes per day: 7 Substance use type: does not use Adopted: Yes Household members: children Housing: house Lives independently: No (lives with family) Current diet type/program: regular Caffeine: Yes Female Reproductive History Menstrual Hx Hysterectomy: No Hx Tubal Ligation: Yes Physical Exam Physical Exam Appearance: Reports Well-appearing Ill-appearing: Severe Pain Distress: None Eyes: Reports JM, EOMI and Conjunctiva clear ENT: Reports Ears normal, Nose normal and Oropharynx normal Neck: Supple Respiratory: Reports Airway patent, Breath sounds clear, Breath sounds equal and Breath sounds diminished Cardiovascular: Reports RRR and Pulses normal GI/: Reports Soft and Nontender Musculoskeletal: Reports Normal strength, ROM intact, Limited ROM and Edema Skin: Reports Warm Neurological: Reports Sensation intact, Motor intact, Reflexes intact, Cranial nerves intact, Alert and Oriented Psychiatric: Reports Affect appropriate and Mood appropriate Interpretation Radiology Interpretation Radiology Interpretation By: ED Physician Radiology Results: Negative Exam Interpreted: CXR Critical Care Note Critical Care Note Total Time (mins): 0 Course Course Hematology/Chemistry: 06/10/19 23:50 06/10/19 23:50 Orders, Labs, Meds: Lab Review 06/10/19 06/10/19 06/10/19 23:35 23:50 23:50 WBC 9.10 RBC 3.53 L Hgb 10.4 L Hct 33.5 L MCV 94.9 MCH 29.5 MCHC 31.0 L RDW Coeff of [place] 16.7 H Plt Count 259 Immature Gran % (Auto) 0.5 Neut % (Auto) 69.8 Lymph % (Auto) 18.4 [place] % (Auto) 6.6 Eos % (Auto) 4.5 Baso % (Auto) 0.2 Immature Gran # (Auto) 0.1 Neut # (Auto) 6.4 Lymph # (Auto) 1.7 [place] # (Auto) 0.6 Eos # (Auto) 0.4 Baso # (Auto) 0.0 Puncture Site Lbrach O2 Saturation 96.0 ABG pH 7.432 ABG pCO2 52.6 H ABG pO2 83.0 L ABG HCO3 35.1 H ABG Total CO2 37 H ABG Base Excess 11 H Cm Test + O2 Delivery Device Nc Oxygen Liter Flow 2.00 FiO2 % 28.0 Sodium 135.8 Potassium 3.64 Chloride 95.4 L Carbon Dioxide 35.3 H Anion Gap 8.74 BUN 10.0 Creatinine 0.77 Estimated GFR (MDRD) 74.00 BUN/Creatinine Ratio 12.98 Glucose 128.2 H Calcium 9.01 Total Bilirubin 0.40 AST 23.3 ALT 17.9 Alkaline Phosphatase 105.6 NT-Pro-B Natriuret Pep 45.900 Total Protein 6.56 Albumin 3.77 Globulin 2.79 Albumin/Globulin Ratio 1.35 Orders Category Date Time Status ABG DRAW REQUEST Stat CARDIO 06/10/19 23:36 Completed EKG-(ED ONLY) Stat CARDIO 06/10/19 23:35 Completed ED IV/MEDIPORT/POWERPORT .ONCE EMERGENCY 06/10/19 23:35 Active ABG Stat LAB 06/10/19 23:35 Completed CBC W/ AUTO DIFF Stat LAB 06/10/19 23:50 Completed COMPREHENSIVE METABOLIC PANEL Stat LAB 06/10/19 23:50 Completed NT-PROBNP Stat LAB 06/10/19 23:50 Completed 0.9 % Sodium Chloride [Saline Flush] MEDS 06/10/19 23:35 Active 1 syr IVF PRN PRN CHEST, 2 VIEWS PA & LAT Stat RADS 06/11/19 00:02 Ordered Medications Generic Name Dose Route Start Last Admin Trade Name Freq PRN Reason Stop Dose Admin Sodium Chloride 1 syr 06/10/19 23:35 Saline Flush IVF PRN PRN To flush IV Vital Signs: Temp Pulse Resp BP Pulse Ox 06/10/19 23:21 99.4 F 109 H 36 H 125/79 97 Discharge Plan Discharge Patient Disposition: ADMITTED INPATIENT Discharge Problem: Cellulitis of both lower extremities Prescriptions: No Action levothyroxine 75 MCG tablet 75 mcg PO DAILY Qty: 30 RF: 1 potassium chloride 10 mEq tablet extended release 10 meq PO BID Qty: 180 RF: 0 albuterol sulfate [Ventolin HFA] 90 mcg/actuation HFA aerosol inhaler 1 - 2 puff inhalation Q4-6H PRN (Reason: shortness of breath or wheezing) Qty: 1 RF: 5 albuterol sulfate 2.5 mg /3 mL (0.083 %) solution for nebulization 2.5 mg NEB Q4-6H PRN (Reason: shortness of air) Qty: 180 RF: 3 escitalopram oxalate [Lexapro] 20 mg tablet 10 mg PO QDAY Qty: 30 RF: 2 melatonin 10 mg Tablet 10 mg PO BEDTIME PRN (Reason: Sleep) RF: 0 lorazepam [Ativan] 0.5 mg Tablet 0.5 mg PO BEDTIME PRN (Reason: SLEEP/ANXIETY) RF: 0 Symbicort 160-4.5 mcg/actuation Hfa Aerosol Inhaler 2 puff INHALATION BID RF: 0 meclizine 25 mg Tablet 25 mg PO BID RF: 0 furosemide 20 mg Tablet 20 mg PO QAM RF: 0 silver sulfadiazine [Silvadene] 1 % cream 1 applic TP BID PRN (Reason: ON LEGS) RF: 0 nystatin [Nystop] 100,000 unit/gram powder 1 applic topical TID PRN (Reason: TO EXCORIATED AREAS) RF: 0 ED Provider: JULIETA VILLEDA Condition: Fair
[2019-06-11] MEDS ORDERED: TYLENOL PO PRN (01:02)
[2019-06-11] MEDS ORDERED: SILVADENE CREAM TP PRN (01:04)
--- NOTE | 2019-06-11 01:04 | DI ---
EXAM: Two-view chest HISTORY: Shortness of breath COMPARISON: Two-view chest 02/23/19 FINDINGS: The heart is normal in size. Atherosclerotic changes are seen involving the aortic arch. Patchy densities at the left lung base. The right lung is clear. No acute osseous abnormalities. IMPRESSION: Stable cardiomediastinal silhouette. Patchy consolidation left lung base.
[2019-06-11] MEDS ORDERED: CLEOCIN IV SCH (01:30)
[2019-06-11] MEDS ORDERED: CLEOCIN 600 MG/50 ML D5W 600 MG/50 ML BAG IV SCH ×2 (01:30→02:30)
[2019-06-11] MEDS: ALBUTEROL 0.083% NEB NEB PRN ×5 (01:40→23:07)
[2019-06-11 01:44] VITALS: BMI 42.7
[2019-06-11] MEDS ORDERED: CLEOCIN IV ONE (02:14)
[2019-06-11] MEDS ORDERED: [UNRECOGNIZED DRUG - OTHER] IV ONE (02:14)
[2019-06-11] MEDS: ATIVAN PO PRN ×2 (02:23→20:29)
[2019-06-11 05:35] LABS: HEMATOCRIT 34.1 % (37.0-47.0)
[2019-06-11] MEDS: LASIX TAB PO SCH (06:22)
[2019-06-11] MEDS: SYNTHROID PO SCH (06:22)
[2019-06-11] MEDS ORDERED: LASIX TAB PO SCH (09:00)
[2019-06-11] MEDS ORDERED: SYNTHROID PO SCH (09:00)
[2019-06-11] MEDS: MICRO-K CAP PO SCH ×2 (09:35→17:55)
[2019-06-11] MEDS: ANTIVERT PO SCH ×2 (09:35→20:29)
[2019-06-11] MEDS: SYMBICORT 160-4.5 MCG INHALER IH SCH ×2 (09:35→20:29)
[2019-06-11] MEDS: LEXAPRO PO SCH (09:35)
[2019-06-11] MEDS: LOVENOX SUBCUT SCH (09:37)
--- NOTE | 2019-06-11 12:49 | PCM ---
Chief Complaint Chief Complaint: "My legs were draining and cracking open." History of Present Illness History of Present Illness: Olive Hansen is a 69 yo female patient of Nancy Michael APRN, well-known to [facility] w/ hx of Cellulitis BLE, Peripheral BLE edema d/t peripheral venous insufficiency, Chronic respiratory failure on home O2 (3L/NC), COPD, HTN, Colostomy POA, Hypothyroidism, Decreased mobility & endurance, Hypothyroidism, and Tobacco abuse disorder who presented to [facility] ER 06/10/19 23:21 w/ c/o's gradual worsening BLE cellulitis "pain, clear serous weeping & cracking sores" over the last week. She notes mild-moderate intermittent aching BLE w/ increasing tightness of entire lower extremities. She denies any skipping of doses of lasix; compliance w/ low sodium diet is questionable. Patient notes she is unable to do her routine BLE wound care as most of the time there is no one there to help her apply the Silvadene cream. Her legs are swollen enough that she has difficulty ambulating at home, but feels she is stable. ER MD noted in report that he saw bedbugs on her legs and signs of cockroaches, not a new finding with this patient. Patient adamantly denies bedbugs or cockroaches. She primarily lives by herself with family moving in and out when they have no other means for housing. Family does not help her with her healthcare. [facility] in the [place] area provides her a caregiver a couple times a week. She needs more wound care support, but states she has no transportation to even see her PCP. [facility] reviewed w/ patient; she is adopted w/ no known siblings and no known family history information. Review of Systems Constitutional: Reports fatigue ("all the time"-chronic); Denies fever, chills, weakness, sweats and loss of appetite Eyes: Denies blurred vision, double-vision, discharge, itching, pain and redness Ears: Reports hearing loss ([place] bilaterally; no hearing aids; states she gets fluid behind her eardrums.); Denies pain, bleeding, drainage and ringing Nose: Denies bleeding, congestion and discharge Throat: Denies pain, swelling and voice change Mouth: Denies bleeding, pain and swelling Respiratory: Reports cough ("usual cough" w/ occasional clear sticky sputum higinio in AM.), shortness of air (at times and BRIGGS; uses home O2 ) and wheeze (" a little bit"); Denies hemoptysis and pain with breathing Cardiovascular: Reports orthopnea (usual 2 pillow orthopnea "for yrs.") and edema ("huge swelling for a week or so"); Denies chest pain, left arm pain, diaphoresis, PND, palpitations and syncope Gastrointestinal: Reports other (Has colostomy w/ no problems.); Denies abdominal pain, nausea, vomiting, diarrhea, melena, hematemesis, hematochezia, dysphagia and constipation Genitourinary: Denies dysuria, hematuria, frequency, incontinence, flank pain, vaginal discharge, abnormal bleeding and pelvic pain Last Menstrual Cycle: Post-menopausal Neurological: Reports headache (rare headache ), problems with walking (walks slowly holding on to items; rolling walker only when goes out in the public. ) and tremor (occasional intentional tremors.); Denies dizziness, seizure, numbness, weakness, speech difficulty and fainting Musculoskeletal: Denies pain and swelling in joints Skin: Reports rash (chronic cellulitis BLE w/ weeping, cracking, and scaling skin. ) and pruritus (intermittent BLE); Denies lacerations, wounds, bruising and other Hematology: Reports easy bruising; Denies easy bleeding and swollen glands Endocrine: Denies weight changes, cold intolerance, heat intolerance, excessive thirst, excessive hunger and polyuria Psychiatric: Reports depression (fairly controlled w/ meds), anxiety (fairly controlled w/ meds) and sleeplessness (Uses melatonin to get to sleep, but sometimes has troubles falling back asleep.); Denies hopelessness, suicidal and hallucinations Habits: Reports tobacco use (2 cigarettes /day w/o patches or other aids at present. ); Denies substance use and alcohol use Allergies Allergies Allergy/AdvReac Type Severity Reaction Status Date / Time No Known Allergies Allergy Uncoded 06/10/19 23:37 [facility] Medical History Bilateral lower leg cellulitis (Inactive) BPV (benign positional vertigo) (Chronic) Chronic obstructive pulmonary disease Chronic respiratory failure with hypoxia, on home oxygen therapy (Chronic) Colostomy present on admission (Chronic ~01/09/20) Decreased mobility and endurance (Acute) Depression with anxiety (Acute) Diverticular disease (Inactive) Edema of both lower extremities due to peripheral venous insufficiency (Acute) History of home oxygen therapy (Inactive) History of pneumonia (Acute) Hyperlipidemia (Acute) Hypertension, essential, benign (Chronic) Hypothyroidism (Chronic) Obesity Stasis dermatitis of both legs (Chronic) Tobacco abuse disorder (Chronic) Surgical History History of section (Unknown) History of intestinal surgery (Acute) History of tubal ligation (Acute) Social History Smoking and tobacco status: Current every day smoker Tobacco type: cigarettes Smoking cigarettes per day: 7 Substance use type: does not use Adopted: Yes Household members: children Housing: house Lives independently: No (lives with family) Number of children: 4 Highest education level completed: some college, no degree Current occupational status: retired History of recent travel: No Do you think of yourself as: straight/heterosexual Current gender identity: female Current diet type/program: regular Caffeine: Yes Medications Medications: Medications Generic Name Dose Route Start Last Admin Trade Name Freq PRN Reason Stop Dose Admin Acetaminophen 650 mg 06/11/19 01:02 Tylenol PO Q4H PRN Mild Pain Albuterol Sulfate 2.5 mg 06/11/19 01:04 06/11/19 10:01 Albuterol 0.083% Neb NEB 2.5 mg Q4-6H PRN Administration Wheezing Budesonide/Formoterol Fumarate 2 puff 06/11/19 09:00 06/11/19 09:35 Symbicort 160-4.5 Mcg Inhaler IH 2 puff BID IBIS Administration Enoxaparin Sodium 40 mg 06/11/19 09:00 06/11/19 09:37 Lovenox SUBCUT 40 mg DAILY IBIS Administration Escitalopram Oxalate 10 mg 06/11/19 09:00 06/11/19 09:35 Lexapro PO 10 mg DAILY IBIS Administration Furosemide 20 mg 06/11/19 06:30 06/11/19 06:22 Lasix Tab PO 20 mg QDAC IBIS Administration Clindamycin Phosphate 600 mg in 50 mls @ 100 mls/hr 06/11/19 12:00 Cleocin 600 Mg/50 Ml D5w IV 06/14/19 02:29 Q6HR IBIS Levothyroxine Sodium 75 mcg 06/11/19 06:30 06/11/19 06:22 Synthroid PO 75 mcg QDAC IBIS Administration Lorazepam 0.5 mg 06/11/19 01:04 06/11/19 02:23 Ativan PO 0.5 mg BEDTIME PRN Administration Anxiety Meclizine HCl 25 mg 06/11/19 09:00 06/11/19 09:35 Antivert PO 25 mg BID IBIS Administration Non-Formulary Medication 10 mg 06/11/19 01:04 Melatonin PO BEDTIME PRN Insomnia Potassium Chloride 10 meq 06/11/19 08:00 06/11/19 09:35 Micro-K Cap PO 10 meq BIDWM IBIS Administration Silver Sulfadiazine 1 applic 06/11/19 01:04 Silvadene Cream TP BID PRN Rash Sodium Chloride 1 syr 06/10/19 23:35 Saline Flush IVF PRN PRN To flush IV Body Composition Height: 5 ft 3 in Weight: 241 lb 10.026 oz Body Mass Index (BMI): 42.7 Vital Signs Temperature: 98.6 F Pulse Rate: 90 Respiratory Rate: 18 Blood Pressure: 150/90 O2 Sat by Pulse Oximetry: 95 Physical Examination Appearance: Reports Well-appearing, No pain distress and Obese Ill-appearing: None Pain Distress: Mild (BLE knees down.) Eyes: Reports JM, Conjunctiva clear, Conjunctiva inflammed and Conjunctiva pale ENT: Reports Ears normal, Nose normal and Oropharynx normal; Denies Rhinorrhea, Epistaxis, Erythema, Exudate and Dry mucosa Neck: Supple Respiratory: Reports Airway patent, Breath sounds clear, Breath sounds equal, Breath sounds diminished and Respirations nonlabored; Denies Crackles, Rhonchi, Wheezes and Retractions Cardiovascular: Reports RRR, Pulses normal, No rub and No murmur GI/: Reports Soft, Nontender, No masses, Bowel sounds normal (Colostomy present on exam w/ healthy stoma; colostomy bag filled w/ medium brown soft to liquid stool.) and No Organomegaly Musculoskeletal: Reports No edema (1+ edema BLE), Limited ROM (moderately limited d/t obesity and lower extremity edema and COPD BRIGGS) and Limited strength (1+/4+ all 4 extremities. ) Skin: Reports Warm, Dry and Normal color (BLE knees down w/ large scaling areas on erythematous base w/ clear serous weeping superficial areas; no scabbing.); Denies Diaphoretic and Cyanotic Neurological: Reports Sensation intact, Motor intact, Reflexes intact, Cranial nerves intact, Alert and Oriented (X4) Psychiatric: Reports Affect appropriate and Mood appropriate; Denies Anxious and Depressed Lab/Tests/Diagnostic Imaging Lab/Tests/Diagnostic Imaging: Lab Review 06/10/19 06/10/19 06/10/19 23:35 23:50 23:50 WBC 9.10 RBC 3.53 L Hgb 10.4 L Hct 33.5 L MCV 94.9 MCH 29.5 MCHC 31.0 L RDW Coeff of [place] 16.7 H Plt Count 259 Immature Gran % (Auto) 0.5 Neut % (Auto) 69.8 Lymph % (Auto) 18.4 [place] % (Auto) 6.6 Eos % (Auto) 4.5 Baso % (Auto) 0.2 Immature Gran # (Auto) 0.1 Neut # (Auto) 6.4 Lymph # (Auto) 1.7 [place] # (Auto) 0.6 Eos # (Auto) 0.4 Baso # (Auto) 0.0 Puncture Site Lbrach O2 Saturation 96.0 ABG pH 7.432 ABG pCO2 52.6 H ABG pO2 83.0 L ABG HCO3 35.1 H ABG Total CO2 37 H ABG Base Excess 11 H Cm Test + O2 Delivery Device Nc Oxygen Liter Flow 2.00 FiO2 % 28.0 Sodium 135.8 Potassium 3.64 Chloride 95.4 L Carbon Dioxide 35.3 H Anion Gap 8.74 BUN 10.0 Creatinine 0.77 Estimated GFR (MDRD) 74.00 BUN/Creatinine Ratio 12.98 Glucose 128.2 H Calcium 9.01 Total Bilirubin 0.40 AST 23.3 ALT 17.9 Alkaline Phosphatase 105.6 NT-Pro-B Natriuret Pep 45.900 Total Protein 6.56 Albumin 3.77 Globulin 2.79 Albumin/Globulin Ratio 1.35 06/11/19 06/11/19 05:25 05:25 WBC 9.57 RBC 3.57 L Hgb 10.3 L Hct 34.1 L MCV 95.5 MCH 28.9 MCHC 30.2 L RDW Coeff of [place] 16.6 H Plt Count 249 Immature Gran % (Auto) 0.7 Neut % (Auto) 72.2 Lymph % (Auto) 17.0 [place] % (Auto) 5.9 Eos % (Auto) 4.0 Baso % (Auto) 0.2 Immature Gran # (Auto) 0.1 Neut # (Auto) 6.9 Lymph # (Auto) 1.6 [place] # (Auto) 0.6 Eos # (Auto) 0.4 Baso # (Auto) 0.0 Puncture Site O2 Saturation ABG pH ABG pCO2 ABG pO2 ABG HCO3 ABG Total CO2 ABG Base Excess Cm Test O2 Delivery Device Oxygen Liter Flow FiO2 % Sodium 137.9 Potassium 3.69 Chloride 95.3 L Carbon Dioxide 37.1 H Anion Gap 9.19 BUN 9.8 Creatinine 0.79 Estimated GFR (MDRD) 72.00 BUN/Creatinine Ratio 12.40 Glucose 131.5 H Calcium 9.18 Total Bilirubin 0.36 AST 23.0 ALT 18.6 Alkaline Phosphatase 95.1 NT-Pro-B Natriuret Pep Total Protein 6.32 Albumin 3.61 Globulin 2.71 Albumin/Globulin Ratio 1.33 06/11/2019 CXR Stable cardiomediastinal silhouette; Patchy consolidation left lung base. VITAL SIGNS Vital Signs Temp Pulse Resp BP Pulse Ox 06/11/19 12:48 98.6 F 90 18 150/90 H 95 06/11/19 06:00 98.6 F 90 18 150/90 H 95 06/11/19 01:39 98.3 F 100 H 20 96 06/10/19 23:21 99.4 F 109 H 36 H 125/79 97 Orders Category Date Time Status ADMIT PATIENT INPATIENT .TO [facility] (MONITORED BED) ADMISSION 06/11/19 01:00 Active ABG DRAW REQUEST Stat CARDIO 06/10/19 23:36 Completed EKG-(ED ONLY) Stat CARDIO 06/10/19 23:35 Completed NEBULIZER TREATMENT Routine CARDIO 06/11/19 01:04 Active NEBULIZER TREATMENT Routine CARDIO 06/11/19 01:04 Completed OXYGEN Routine CARDIO 06/11/19 01:03 Active ACTIVITY .BR with BRP CARE 06/11/19 01:02 Active ELEVATE AFFECTED EXTREMITY .ONCE CARE 06/11/19 01:02 Active INTAKE & OUTPUT Q8HR CARE 06/11/19 01:02 Active NEW BEGINNINGS SCREEN .PRN CARE 06/11/19 01:44 Active PHARMACIST CONSULT ONCE CARE 06/11/19 01:44 Active TELEMETRY MONITORING TELE CARE 06/11/19 01:00 Active VITAL SIGNS Q8HR CARE 06/11/19 01:02 Active CARDIAC DIET DIETARY 06/11/19 Breakfast Ordered CONSULT LABORER SHAFT SINKING ONCE LABORER SHAFT SINKING 06/11/19 01:44 Active ED IV/MEDIPORT/POWERPORT .ONCE EMERGENCY 06/10/19 23:35 Active ABG Stat LAB 06/10/19 23:35 Completed CBC W/ AUTO DIFF DAILY@0600 LAB 06/11/19 05:25 Completed CBC W/ AUTO DIFF DAILY@0600 LAB 06/12/19 06:00 Ordered CBC W/ AUTO DIFF Stat LAB 06/10/19 23:50 Completed COMPREHENSIVE METABOLIC PANEL DAILY@0600 LAB 06/11/19 05:25 Completed COMPREHENSIVE METABOLIC PANEL DAILY@0600 LAB 06/12/19 06:00 Ordered COMPREHENSIVE METABOLIC PANEL Stat LAB 06/10/19 23:50 Completed NT-PROBNP Stat LAB 06/10/19 23:50 Completed 0.9 % Sodium Chloride [Saline Flush] MEDS 06/10/19 23:35 Active 1 syr IVF PRN PRN Acetaminophen [Tylenol] MEDS 06/11/19 01:02 Active 650 mg PO Q4H PRN Albuterol Sulfate 0.083% Neb [Albuterol 0.083% Neb] MEDS 06/11/19 01:04 Active 2.5 mg NEB Q4-6H PRN Budesonide/Formoterol Fumarate [Symbicort 160-4.5 Mcg MEDS 06/11/19 09:00 Active Inhaler] 2 puff IH BID Clindamycin Phosphate Inj [Cleocin] MEDS 06/11/19 01:30 Discontinued 600 mg IV Q6H Clindamycin Phosphate/D5w [Cleocin 300 mg/50 ml D5w] MEDS 06/11/19 02:14 Discontinued 600 mg in 100 ml IV .STK-MED Clindamycin Phosphate/D5w [Cleocin 600 mg/50 ml D5w] MEDS 06/11/19 01:30 Di scontinued 600 mg in 50 ml IV Q6H Clindamycin Phosphate/D5w [Cleocin 600 mg/50 ml D5w] MEDS 06/11/19 02:30 Discontinued 600 mg in 50 ml IV Q6H Clindamycin Phosphate/D5w [Cleocin 600 mg/50 ml D5w] MEDS 06/11/19 12:00 Active 600 mg in 50 ml IV Q6HR Enoxaparin Sodium [Lovenox] MEDS 06/11/19 09:00 Active 40 mg SUBCUT DAILY Escitalopram Oxalate [Lexapro] MEDS 06/11/19 09:00 Active 10 mg PO DAILY Furosemide [Lasix Tab] MEDS 06/11/19 09:00 Discontinued 20 mg PO QAM Furosemide [Lasix Tab] MEDS 06/11/19 06:30 Active 20 mg PO QDAC Levothyroxine Sodium [Synthroid] MEDS 06/11/19 09:00 Discontinued 75 mcg PO DAILY Levothyroxine Sodium [Synthroid] MEDS 06/11/19 06:30 Active 75 mcg PO QDAC Lorazepam [Ativan] MEDS 06/11/19 01:04 Active 0.5 mg PO BEDTIME PRN Meclizine HCl [Antivert] MEDS 06/11/19 09:00 Active 25 mg PO BID Potassium Chloride [Micro-K Cap] MEDS 06/11/19 08:00 Active 10 meq PO BIDWM Silver Sulfadiazine [Silvadene Cream] MEDS 06/11/19 01:04 Active 1 applic TP BID PRN melatonin MEDS 06/11/19 01:04 Active 10 mg PO BEDTIME PRN RESUSCITATION STATUS Routine OTHERS 06/11/19 01:02 Completed RESUSCITATION STATUS Routine OTHERS 06/11/19 01:44 Ordered CHEST, 2 VIEWS PA & LAT Stat RADS 06/11/19 00:02 Completed Medications Generic Name Dose Route Start Last Admin Trade Name Alfredoq PRN Reason Stop Dose Admin Acetaminophen 650 mg 06/11/19 01:02 Tylenol PO Q4H PRN Mild Pain Albuterol Sulfate 2.5 mg 06/11/19 01:04 06/11/19 10:01 Albuterol 0.083% Neb NEB 2.5 mg Q4-6H PRN Administration Wheezing Budesonide/Formoterol Fumarate 2 puff 06/11/19 09:00 06/11/19 09:35 Symbicort 160-4.5 Mcg Inhaler IH 2 puff BID IBIS Administration Enoxaparin Sodium 40 mg 06/11/19 09:00 06/11/19 09:37 Lovenox SUBCUT 40 mg DAILY IBIS Administration Escitalopram Oxalate 10 mg 06/11/19 09:00 06/11/19 09:35 Lexapro PO 10 mg DAILY IBIS Administration Furosemide 20 mg 06/11/19 06:30 06/11/19 06:22 Lasix Tab PO 20 mg QDAC IBIS Administration Clindamycin Phosphate 600 mg in 50 mls @ 100 mls/hr 06/11/19 12:00 Cleocin 600 Mg/50 Ml D5w IV 06/14/19 02:29 Q6HR IBIS Levothyroxine Sodium 75 mcg 06/11/19 06:30 06/11/19 06:22 Synthroid PO 75 mcg QDAC IBIS Administration Lorazepam 0.5 mg 06/11/19 01:04 06/11/19 02:23 Ativan PO 0.5 mg BEDTIME PRN Administration Anxiety Meclizine HCl 25 mg 06/11/19 09:00 06/11/19 09:35 Antivert PO 25 mg BID IBIS Administration Non-Formulary Medication 10 mg 06/11/19 01:04 Melatonin PO BEDTIME PRN Insomnia Potassium Chloride 10 meq 06/11/19 08:00 06/11/19 09:35 Micro-K Cap PO 10 meq BIDWM IBIS Administration Silver Sulfadiazine 1 applic 06/11/19 01:04 Silvadene Cream TP BID PRN Rash Sodium Chloride 1 syr 06/10/19 23:35 Saline Flush IVF PRN PRN To flush IV Discontinued Medications Generic Name Dose Route Start Last Admin Trade Name Freq PRN Reason Stop Dose Admin Clindamycin Phosphate 600 mg 06/11/19 01:30 Cleocin IV 06/14/19 01:29 Q6H IBIS Furosemide 20 mg 06/11/19 09:00 Lasix Tab PO QAM IBIS Clindamycin Phosphate 600 mg in 50 mls @ 100 mls/hr 06/11/19 01:30 06/11/19 03:38 Cleocin 600 Mg/50 Ml D5w IV 06/14/19 01:29 Not Given Q6H IBIS Clindamycin Phosphate 600 mg in 50 mls @ 100 mls/hr 06/11/19 02:30 06/11/19 02:18 Cleocin 600 Mg/50 Ml D5w IV 06/14/19 02:29 100 mls/hr Q6H IBIS Administration Levothyroxine Sodium 75 mcg 06/11/19 09:00 Synthroid PO DAILY IBIS Assessment (1) Cellulitis of both lower extremities: Status: Acute Code(s): L03.115 - Cellulitis of right lower limb SNOMED Code(s): 458624757 (2) Edema of both lower extremities due to peripheral venous insufficiency: Status: Acute Code(s): I87.2 - Venous insufficiency (chronic) (peripheral) SNOMED Code(s): 48622873025566419 (3) Chronic obstructive pulmonary disease: Status: None SNOMED Code(s): 27710237 Qualifiers: COPD type: unspecified COPD Qualified Code(s): J44.9 - Chronic obstructive pulmonary disease, unspecified (4) Chronic respiratory failure with hypoxia, on home oxygen therapy: Status: Chronic Code(s): J96.11 - Chronic respiratory failure with hypoxia; Z99.81 - Dependence on supplemental oxygen SNOMED Code(s): 027036433 (5) Hypertension, essential, benign: Status: Chronic Code(s): I10 - Essential (primary) hypertension SNOMED Code(s): 2427704 (6) Hypothyroidism: Status: Chronic SNOMED Code(s): 23541040 Qualifiers: Hypothyroidism type: unspecified Qualified Code(s): E03.9 - Hypothyroidism, unspecified (7) Tobacco abuse disorder: Status: Chronic Code(s): Z72.0 - Tobacco use SNOMED Code(s): 89607448 (8) Tobacco abuse counseling: Status: Acute Code(s): Z71.6 - Tobacco abuse counseling SNOMED Code(s): 729452428 (9) Decreased mobility and endurance: Status: Acute Code(s): Z74.09 - Other reduced mobility SNOMED Code(s): 5561877 (10) Hyperlipidemia: Status: Acute Code(s): E78.5 - Hyperlipidemia, unspecified SNOMED Code(s): 30656236 Qualifiers: Hyperlipidemia type: unspecified Qualified Code(s): E78.5 - Hyperlipidemia, unspecified (11) Depression with anxiety: Status: Acute Code(s): F41.8 - Other specified anxiety disorders SNOMED Code(s): 57977507 (12) Colostomy care: Status: Acute Code(s): Z43.3 - Encounter for attention to colostomy SNOMED Code(s): 008247528 (13) Colostomy present on admission: Status: Chronic Code(s): Z93.3 - Colostomy status SNOMED Code(s): 308156492 (14) BPV (benign positional vertigo): Status: Chronic Code(s): H81.13 - Benign paroxysmal vertigo, bilateral SNOMED Code(s): 845062472 Qualifiers: Laterality: unspecified laterality Qualified Code(s): H81.10 - Benign paroxysmal vertigo, unspecified ear Plan Plan: BLE cellulitis, Chronic w/ worsening inflammation likely aggravated by bedbug & heart infestation at home per ER MD. Last hospitalization included cellulitis tx w/ IV Cefazolin and d/c on 5 days of Keflex 500mg PO QID.; Con't Clindamycin 600mg IV Q6hrs; nursing staff to assist with needed body cleanliness but patient has already delayed her bath twice today. Not likely that she has done any significant wound care at home as she has difficulty caring for herself due to morbid obesity, COPD, and other comorbidities (see PMH). If any drainage from legs, do wound culture prior to starting any antibiotics or treatment; Wound care IBIS TID =Cleanse BLE gently w/ warm NS or [place] using wetted gauze, pat dry, then apply Triamcinolone acetonide ointment 0.1% sparingly to entire area of dermatitis, apply saturated but not dripping 4X4 gauze pads entire area and wrap w/ 6 Carloz gauze wrap in figure 8 fashion not so tightly to diminish circulation. Apply SCDs over dressings. The wet dressing & SCDs are left in place for two to three hours. Apply light application of Barrier ointment after removal of dressings to moisturize and seal in attained hydration. Then re-apply SCDs.; elevate the affected extremity/extremities when seated and avoid prolonged standing; Keep TEDs & SCDs on patient at all times Appreciate Case Management assistance in health dept notification of infestations and approaching patient for at least 2-3 month SNF care where she can get assistance w/ her wound care; patient seems somewhat agreeable at present. Going to OP wound clinic or other medical visits are very challenging w/ her resources and lack of family support. Will keep her legs elevated as much as possible and SCD's to assist w/ edema. Edema BLE likely d/t peripheral Venous Insufficiency-- Con't home Lasix; add spiranolactone 12.5mg Q AM X 2 doses. No signs of DVT at this time; Lovenox while in hospital. Nursing staff to ambulate patient to chair and 5 other times a day w/ assistance. Keep legs elevated most of the time. Monitor labs & VS. Chronic Resp Failure with hypoxia, on constant home --O2 per protocol; Patient has heavy smell of tobacco smoke w/ toxic house of same smell reported to ER . No nicotine patch on as ordered per PCP.: Will discuss Smoking Cessation tomorrow as patient not willing for more conversation at this time.; Monitor labs, VS & O2 Sat. COPD --Stable at present w/ O2 cont'd @ 3L/NC; Note chronic anemia d/t chronic disease COPD. No steroids needed at present. Con't nebs as ordered for home. O2 per protocol. Hold Symbicort at present; past hospitalizations does well for a few days w/ nebs. Benign Essential HTN--Stable.; Monitor VS; Con't home meds; Cardiac diet. Hypothyroidism --Stable w/o symptoms or c/o's; Con't home meds. Tobacco Abuse Disorder w/ Counseling --Improving. Patient now decreased to 2 cigarettes per day and does not reak of tobacco smoke as on her previous admission. Tobacco cessation reviewed briefly w/ patient verbalizing understanding and refusing Nicotine patch at this time. Wants to go w/o smoking w/o tx. Praised patient for decreasing her smoking and encouraged to continue to completely d/c tobacco use and secondary smoke during this hospitalization or shortly after. Decreased Mobility & Endurance w/ High Risk Falls--Unchanged from previous hospitalization. HFR precautions; Patient seems to be content to just sit all the time and go from bed to bedside commode; admits to very limited physical activity at home. Case mgmt, Johnny, present during [employer] visit and will look at other alternatives for asst. w/ ADL's upon d/c and including d/c to SNF. Have talked briefly of fall risk complications--fx hip, fx bones, SDH, and other complications. Patient thinks she is managing well by herself. Depression w/ Anxiety--Stable at present. NO SI or hallucinations.; Con't home meds. Colostomy POA--Stable; Site appears healthy. Colostomy care given w/ nursing asst. No issues at present. BPV --stable; no symptoms at present; Cont home meclizine. Disposition Expected length of stay 48-72 hrs. Pt. Care Time today : 1 hr. including Case Management and Nurse Huddle. [facility] Medical History Bilateral lower leg cellulitis (Inactive) BPV (benign positional vertigo) (Chronic) Chronic obstructive pulmonary disease Chronic respiratory failure with hypoxia, on home oxygen therapy (Chronic) Colostomy present on admission (Chronic ~05/16/19) Decreased mobility and endurance (Acute) Depression with anxiety (Acute) Diverticular disease (Inactive) Edema of both lower extremities due to peripheral venous insufficiency (Acute) History of home oxygen therapy (Inactive) History of pneumonia (Acute) Hyperlipidemia (Acute) Hypertension, essential, benign (Chronic) Hypothyroidism (Chronic) Obesity Stasis dermatitis of both legs (Chronic) Tobacco abuse disorder (Chronic) Social History Smoking and tobacco status: Current every day smoker Tobacco type: cigarettes Smoking cigarettes per day: 7 Substance use type: does not use Adopted: Yes Household members: children Housing: house Lives independently: No (lives with family) Number of children: 4 Highest education level completed: some college, no degree Current occupational status: retired History of recent travel: No Do you think of yourself as: straight/heterosexual Current gender identity: female Current diet type/program: regular Caffeine: Yes Female Reproductive History Menstrual Hx Hysterectomy: No Hx Tubal Ligation: Yes
[2019-06-11] MEDS: CLEOCIN 600 MG/50 ML D5W 600 MG/50 ML BAG IV SCH ×3 (13:27→23:04)
[2019-06-11] MEDS: KENALOG 0.1% TP SCH ×2 (17:57→21:28)
[2019-06-12 04:43] LABS: HEMATOCRIT 32.8 % (37.0-47.0)
[2019-06-12] MEDS: ALBUTEROL 0.083% NEB NEB PRN ×4 (04:52→23:05)
[2019-06-12] MEDS: LASIX TAB PO SCH (05:56)
[2019-06-12] MEDS: CLEOCIN 600 MG/50 ML D5W 600 MG/50 ML BAG IV SCH ×5 (05:57→23:44)
[2019-06-12] MEDS: SYNTHROID PO SCH (05:57)
[2019-06-12] MEDS: SYMBICORT 160-4.5 MCG INHALER IH SCH ×2 (09:20→21:19)
[2019-06-12] MEDS: MICRO-K CAP PO SCH ×2 (09:20→17:04)
[2019-06-12] MEDS: LEXAPRO PO SCH (09:21)
[2019-06-12] MEDS: LOVENOX SUBCUT SCH (09:21)
[2019-06-12] MEDS: ANTIVERT PO SCH ×2 (09:21→21:19)
[2019-06-12] MEDS: KENALOG 0.1% TP SCH ×3 (09:30→21:20)
--- NOTE | 2019-06-12 12:41 | PCM.PROG ---
Date Seen by Provider: 06/12/19 Time Seen by Provider: 11:05 Subjective: Patient sitting up at bedside taking neb tx. States she is feeling "fine." No c/o's offered. Notes her leg swelling is going down some and she has her leg dressings 2-3 times/day. Denies BLE pain except to touch, itching, or increased clear fluid weeping. Is happy to have nursing staff helping her with her dressings. Denies breathing problems, CP, palpitations, abdominal pain, N/V, diarrhea or other new symptoms. Using O2 chronically at 2-3 L/NC. Appetite very good. Patient is still optomistic and discussing ST SNF transfer to assist with her wounds and ADL's; Johnny, case management, assisting w/ SNF. Objective: Vitals: T=98.1 F, P=97, R=19, IZ=813/81, SPO2=97 General: Sitting up at bedside w/ O2 NC intact. HEENT: PERRLA: No redness or discharge. Pharynx w/o injection, PND, lesions. No nasal discharge or sneezing. Very AKUTAN. Neck: Supple; NT. No masses or lymphadenopathy. Lungs: BS present throughout w/ scattered faint wheezes during Albuterol Neb TX. No cough, crackles, or rhonchi. Resp. easy and regular at rest w/ O2 @ 2L/NC. CVS: RRR; No murmurs, gallops, or irregularities. PPP 1+/4+ w/ 1+ lower extremities edema. Abdomen: Obese. Colostomy bag intact RUQ area w/ healthy pink stoma and moderate amt med-dark brown liquid stool. NT, NM, JOCELIN/SO present. M/S: HERNANDEZ fairly well w/ BLE limited due to edema, osteoarthritis, obesity, and mild weakness. BLE w/ tenderness to palpation of gao areas and 1+ edema. Neurological: A/O X4. Responds when spoken to (visitor using a loud voice). Responds best when addressed from her front and able to see you are speaking with her. No evidence of pain at present. Skin: Generalized dryness of skin w/ flaking. BLE mild nielsen red stasis dermatitis presentation w/ mild intermittent clear serous weeping increased w/ movement. No ulcerations. Lab/Tests/Diagnostic Imaging: Laboratory Last Values WBC 7.90 K/ul (4.6-10.2) 06/12/19 04:20 RBC 3.44 10^6/ul (4.20-5.40) L 06/12/19 04:20 Hgb 10.0 g/dl (12.0-16.0) L 06/12/19 04:20 Hct 32.8 % (37.0-47.0) L 06/12/19 04:20 MCV 95.3 fl (81.0-99.0) 06/12/19 04:20 MCH 29.1 pg (27.0-31.0) 06/12/19 04:20 MCHC 30.5 (31.8-35.4) L 06/12/19 04:20 RDW Coeff of [place] 17.0 % (11.6-14.8) H 06/12/19 04:20 Plt Count 258 10^3/uL (140-440) 06/12/19 04:20 Immature Gran % (Auto) 0.5 % (0.0-5.0) 06/12/19 04:20 Neut % (Auto) 66.3 % (42.2-75.2) 06/12/19 04:20 Lymph % (Auto) 19.6 (10.0-50.0) 06/12/19 04:20 [place] % (Auto) 7.5 (0-10) 06/12/19 04:20 Eos % (Auto) 5.8 % (0.0-7.0) 06/12/19 04:20 Baso % (Auto) 0.3 % (0.0-3.0) 06/12/19 04:20 Immature Gran # (Auto) 0.0 (0.0-1.0) 06/12/19 04:20 Neut # (Auto) 5.2 K/ul (2.0-6.9) 06/12/19 04:20 Lymph # (Auto) 1.6 K/uL (0.60-3.4) 06/12/19 04:20 [place] # (Auto) 0.6 K/uL (0.4-2.0) 06/12/19 04:20 Eos # (Auto) 0.5 K/ul (0.0-0.7) 06/12/19 04:20 Baso # (Auto) 0.0 K/uL (0-0.2) 06/12/19 04:20 Puncture Site Lbrach 06/10/19 23:35 O2 Saturation 96.0 % (95-100) 06/10/19 23:35 ABG pH 7.432 (7.35-7.45) 06/10/19 23:35 ABG pCO2 52.6 mmHg (35-45) H 06/10/19 23:35 ABG pO2 83.0 mmHg (85-100) L 06/10/19 23:35 ABG HCO3 35.1 (22.0-26.0) H 06/10/19 23:35 ABG Total CO2 37 (22.0-28.0) H 06/10/19 23:35 ABG Base Excess 11 (-2.0-2.0) H 06/10/19 23:35 Cm Test + 06/10/19 23:35 O2 Delivery Device Nc 06/10/19 23:35 Oxygen Liter Flow 2.00 06/10/19 23:35 FiO2 % 28.0 % 06/10/19 23:35 Sodium 137.5 mmol/L (134.5-145) 06/12/19 04:20 Potassium 4.01 mmol/L (3.5-5.1) 06/12/19 04:20 Chloride 96.5 mmol/L (98-107) L 06/12/19 04:20 Carbon Dioxide 36.3 mmol/L (22-30.0) H 06/12/19 04:20 Anion Gap 8.71 06/12/19 04:20 BUN 14.3 mg/dL (7-17) 06/12/19 04:20 Creatinine 0.88 mg/dL (0.60-1.30) 06/12/19 04:20 Estimated GFR (MDRD) 64.00 mL/min 06/12/19 04:20 BUN/Creatinine Ratio 16.25 06/12/19 04:20 Glucose 154.2 mg/dL (74-106) H 06/12/19 04:20 Calcium 8.64 mg/dL (8.4-10.2) 06/12/19 04:20 Total Bilirubin 0.41 mg/dL (0.2-1.3) 02/05/20 04:20 AST 17.4 U/L (14-36) 06/12/19 04:20 ALT 16.6 U/L (0-35) 06/12/19 04:20 Alkaline Phosphatase 92.9 U/L (53-141) 06/12/19 04:20 NT-Pro-B Natriuret Pep 45.900 pg/mL (0-124) 06/10/19 23:50 Total Protein 6.29 g/dL (6.3-8.2) L 06/12/19 04:20 Albumin 3.51 g/dL (3.5-5.0) 06/12/19 04:20 Globulin 2.78 06/12/19 04:20 Albumin/Globulin Ratio 1.26 06/12/19 04:20 (1) Cellulitis of both lower extremities: Status: Acute Code(s): L03.115 - Cellulitis of right lower limb SNOMED Code(s): 854955355 (2) Edema of both lower extremities due to peripheral venous insufficiency: Status: Acute Code(s): I87.2 - Venous insufficiency (chronic) (peripheral) SNOMED Code(s): 62823547291151456 (3) Chronic obstructive pulmonary disease: Status: None SNOMED Code(s): 61793747 (4) Chronic respiratory failure with hypoxia, on home oxygen therapy: Status: Chronic Code(s): J96.11 - Chronic respiratory failure with hypoxia; Z99.81 - Dependence on supplemental oxygen SNOMED Code(s): 898312192 (5) Hypertension, essential, benign: Status: Chronic Code(s): I10 - Essential (primary) hypertension SNOMED Code(s): 4754696 (6) Hypothyroidism: Status: Chronic SNOMED Code(s): 72191793 (7) Tobacco abuse disorder: Status: Chronic Code(s): Z72.0 - Tobacco use SNOMED Code(s): 53447655 (8) Tobacco abuse counseling: Status: Acute Code(s): Z71.6 - Tobacco abuse counseling SNOMED Code(s): 250048497 (9) Decreased mobility and endurance: Status: Acute Code(s): Z74.09 - Other reduced mobility SNOMED Code(s): 3228468 (10) Hyperlipidemia: Status: Acute Code(s): E78.5 - Hyperlipidemia, unspecified SNOMED Code(s): 74905970 (11) Depression with anxiety: Status: Acute Code(s): F41.8 - Other specified anxiety disorders SNOMED Code(s): 73573600 (12) Colostomy care: Status: Acute Code(s): Z43.3 - Encounter for attention to colostomy SNOMED Code(s): 538811851 (13) Colostomy present on admission: Status: Chronic Code(s): Z93.3 - Colostomy status SNOMED Code(s): 370891361 (14) BPV (benign positional vertigo): Status: Chronic Code(s): H81.13 - Benign paroxysmal vertigo, bilateral SNOMED Code(s): 636169623 Plan: BLE cellulitis, Chronic slightly improved since admission and 2-3 dressing changes. w/ worsening inflammation likely aggravated by bedbug & heart infestation at home per ER MD. Con't Clindamycin 600mg IV Q6hrs; Wound culture BLE still needs to be obtained w/ RN reminded per Case Management, Johnny; Con't w/ needed body cleanliness and avoid patient manipulation to delay her care. Con't wound care as directed---Not done appropriately earlier today from scant wraps---Nursing to please read and follow this directions as they are proven effective by best care-- Wound care IBIS TID =Cleanse BLE gently w/ warm NS or Burows using wetted gauze, pat dry, then apply Triamcinolone acetonide ointment 0.1% sparingly to entire area of dermatitis, apply saturated but not dripping 4X4 gauze pads entire area and wrap w/ 6 Carloz gauze wrap in figure 8 fashion not so tightly to diminish circulation. Apply SCDs over dressings. The wet dressing & SCDs are left in place for two to three hours. Apply light application of Barrier ointment after removal of dressings to moisturize and seal in attained hydration. Then re-apply SCDs.; elevate the affected extremity/extremities when seated and avoid prolonged standing; Keep TEDs & SCDs on patient at all times Appreciate Case Management assistance in health dept notification of infestations and approaching patient for at least 2-3 month SNF care where she can get assistance w/ her wound care; patient seems somewhat agreeable at present. Going to OP wound clinic or other medical visits are very challenging w/ her resources and lack of family support. Will keep her legs elevated as much as possible and SCD's to assist w/ edema. Edema BLE likely d/t peripheral Venous Insufficiency-- Very slowly improving. Con't Lasix and spiranolactone 12.5mg Q AM X 2 doses. No signs of DVT at this time; Lovenox while in hospital. Nursing staff to ambulate patient to chair and 5 other times a day w/ assistance. Keep legs elevated most of the time. Monitor labs & VS. Chronic Resp Failure with hypoxia, on constant home --Stable. O2 per protocol; D/C Tobacco; Decline nicotine patch; Monitor labs, VS & O2 Sat. COPD --Stable at present w/ O2 cont'd @ 2L/NC; Note chronic anemia d/t chronic disease COPD. No steroids needed at present. Con't nebs as ordered for home. O2 per protocol. Hold Symbicort at present; past hospitalizations does well for a few days w/ nebs; pt is doing well at this time. Benign Essential HTN--Stable.; Monitor VS; Con't home meds; Cardiac diet. Hypothyroidism --Stable w/o symptoms or c/o's; Con't home meds. Tobacco Abuse Disorder w/ Counseling - STable w/o tobacco use as per pt. plan. Decreased Mobility & Endurance w/ High Risk Falls--Unchanged from yesterday. HFR precautions. Keep legs elevated; up in chair w/ legs elevated for all meals. Depression w/ Anxiety--Stable at present. NO SI or hallucinations.; Con't home meds. Colostomy POA--Stable; Site appears healthy. Colostomy care given w/ nursing asst. No issues at present. BPV --stable; no symptoms at present; Cont home meclizine.
[2019-06-12] MEDS: ATIVAN PO PRN (23:51)
[2019-06-13] MEDS: ALBUTEROL 0.083% NEB NEB PRN ×2 (04:55→10:11)
[2019-06-13] MEDS: LASIX TAB PO SCH (05:39)
[2019-06-13] MEDS: SYNTHROID PO SCH (05:39)
[2019-06-13] MEDS: CLEOCIN 600 MG/50 ML D5W 600 MG/50 ML BAG IV SCH ×2 (05:39→11:54)
[2019-06-13] MEDS: SYMBICORT 160-4.5 MCG INHALER IH SCH (08:08)
[2019-06-13] MEDS: MICRO-K CAP PO SCH (08:09)
[2019-06-13] MEDS: LEXAPRO PO SCH (08:09)
[2019-06-13] MEDS: ANTIVERT PO SCH (08:09)
[2019-06-13] MEDS: LOVENOX SUBCUT SCH (08:12)
--- NOTE | 2019-06-13 10:38 | PCM.DC ---
Final Diagnosis: Chronic BLE Cellulitis BLE, exacerbation (1) Cellulitis of both lower extremities: Status: Acute Code(s): L03.115 - Cellulitis of right lower limb SNOMED Code(s): 926924255 (2) Edema of both lower extremities due to peripheral venous insufficiency: Status: Acute Code(s): I87.2 - Venous insufficiency (chronic) (peripheral) SNOMED Code(s): 94412278996262361 (3) Chronic obstructive pulmonary disease: Status: None SNOMED Code(s): 39151330 Qualifiers: COPD type: unspecified COPD Qualified Code(s): J44.9 - Chronic obstructive pulmonary disease, unspecified (4) Chronic respiratory failure with hypoxia, on home oxygen therapy: Status: Chronic Code(s): J96.11 - Chronic respiratory failure with hypoxia; Z99.81 - Dependence on supplemental oxygen SNOMED Code(s): 824903556 (5) Hypertension, essential, benign: Status: Chronic Code(s): I10 - Essential (primary) hypertension SNOMED Code(s): 1506262 (6) Hypothyroidism: Status: Chronic SNOMED Code(s): 92729034 Qualifiers: Hypothyroidism type: unspecified Qualified Code(s): E03.9 - Hypothyro idism, unspecified (7) Tobacco abuse disorder: Status: Chronic Code(s): Z72.0 - Tobacco use SNOMED Code(s): 72394404 (8) Tobacco abuse counseling: Status: Acute Code(s): Z71.6 - Tobacco abuse counseling SNOMED Code(s): 816676966 (9) Decreased mobility and endurance: Status: Acute Code(s): Z74.09 - Other reduced mobility SNOMED Code(s): 5690372 (10) Hyperlipidemia: Status: Acute Code(s): E78.5 - Hyperlipidemia, unspecified SNOMED Code(s): 89934698 Qualifiers: Hyperlipidemia type: unspecified Qualified Code(s): E78.5 - Hyperlipidemia, unspecified (11) Depression with anxiety: Status: Acute Code(s): F41.8 - Other specified anxiety disorders SNOMED Code(s): 07796804 (12) Colostomy care: Status: Acute Code(s): Z43.3 - Encounter for attention to colostomy SNOMED Code(s): 666704727 (13) Colostomy present on admission: Status: Chronic Code(s): Z93.3 - Colostomy status SNOMED Code(s): 286599009 (14) BPV (benign positional vertigo): Status: Chronic Code(s): H81.13 - Benign paroxysmal vertigo, bilateral SNOMED Code(s): 466074137 Qualifiers: Laterality: unspecified laterality Qualified Code(s): H81.10 - Benign paroxysmal vertigo, unspecified ear Reason for Hospitalization: Worsening BLE cellulitis w/ bedbugs and heart irritation noted by ER MD. Patient is unable to do her TID wound care w/ status worsening. Prognosis at Discharge: Stable and hopeful w/ transfer to SNF and routine wound care, personal hygiene assistance, and medication management as very needed. Condition at Discharge: Fair--Chronic condition affected by personal cleanliness and inability to do her needed wound care chronically. Medications at Discharge: Ambulatory Orders Medication Instructions Recorded levothyroxine 75 mcg PO DAILY #30 tab-cap 12/26/18 melatonin 10 mg PO BEDTIME PRN 02/21/19 potassium chloride 10 mEq 10 meq PO BID #180 tab-cap 04/12/19 tablet,extended release albuterol sulfate 90 mcg/actuation 1 - 2 puff INHALATION Q4-6H PRN #1 05/13/19 aerosol inhaler ih Symbicort 2 puff INHALATION BID 05/14/19 lorazepam [Ativan] 0.5 mg PO BEDTIME PRN 05/14/19 albuterol sulfate 2.5 mg NEB Q4-6H PRN #180 ml 05/20/19 escitalopram oxalate 20 mg tablet 10 mg PO QDAY #30 tab 05/22/19 furosemide 20 mg PO QAM 06/10/19 meclizine 25 mg PO BID 06/10/19 nystatin [Nystop] 1 applic TOPICAL TID PRN 06/10/19 silver sulfadiazine [Silvadene] 1 applic TP BID PRN 06/10/19 levothyroxine 06/11/19 Lab/Diagnostics: Laboratory Results WBC 7.90 K/ul (4.6-10.2) 06/12/19 04:20 RBC 3.44 10^6/ul (4.20-5.40) L 06/12/19 04:20 Hgb 10.0 g/dl (12.0-16.0) L 06/12/19 04:20 Hct 32.8 % (37.0-47.0) L 06/12/19 04:20 MCV 95.3 fl (81.0-99.0) 06/12/19 04:20 MCH 29.1 pg (27.0-31.0) 06/12/19 04:20 MCHC 30.5 (31.8-35.4) L 06/12/19 04:20 RDW Coeff of [place] 17.0 % (11.6-14.8) H 06/12/19 04:20 Plt Count 258 10^3/uL (140-440) 06/12/19 04:20 Immature Gran % (Auto) 0.5 % (0.0-5.0) 06/12/19 04:20 Neut % (Auto) 66.3 % (42.2-75.2) 06/12/19 04:20 Lymph % (Auto) 19.6 (10.0-50.0) 06/12/19 04:20 [place] % (Auto) 7.5 (0-10) 06/12/19 04:20 Eos % (Auto) 5.8 % (0.0-7.0) 06/12/19 04:20 Baso % (Auto) 0.3 % (0.0-3.0) 06/12/19 04:20 Immature Gran # (Auto) 0.0 (0.0-1.0) 06/12/19 04:20 Neut # (Auto) 5.2 K/ul (2.0-6.9) 06/12/19 04:20 Lymph # (Auto) 1.6 K/uL (0.60-3.4) 06/12/19 04:20 [place] # (Auto) 0.6 K/uL (0.4-2.0) 06/12/19 04:20 Eos # (Auto) 0.5 K/ul (0.0-0.7) 06/12/19 04:20 Baso # (Auto) 0.0 K/uL (0-0.2) 06/12/19 04:20 Puncture Site Lbrach 06/10/19 23:35 O2 Saturation 96.0 % (95-100) 06/10/19 23:35 ABG pH 7.432 (7.35-7.45) 06/10/19 23:35 ABG pCO2 52.6 mmHg (35-45) H 06/10/19 23:35 ABG pO2 83.0 mmHg (85-100) L 06/10/19 23:35 ABG HCO3 35.1 (22.0-26.0) H 06/10/19 23:35 ABG Total CO2 37 (22.0-28.0) H 06/10/19 23:35 ABG Base Excess 11 (-2.0-2.0) H 06/10/19 23:35 Cm Test + 06/10/19 23:35 O2 Delivery Device Nc 06/10/19 23:35 Oxygen Liter Flow 2.00 06/10/19 23:35 FiO2 % 28.0 % 06/10/19 23:35 Sodium 137.5 mmol/L (134.5-145) 06/12/19 04:20 Potassium 4.01 mmol/L (3.5-5.1) 06/12/19 04:20 Chloride 96.5 mmol/L (98-107) L 06/12/19 04:20 Carbon Dioxide 36.3 mmol/L (22-30.0) H 06/12/19 04:20 Anion Gap 8.71 06/12/19 04:20 BUN 14.3 mg/dL (7-17) 06/12/19 04:20 Creatinine 0.88 mg/dL (0.60-1.30) 06/12/19 04:20 Estimated GFR (MDRD) 64.00 mL/min 06/12/19 04:20 BUN/Creatinine Ratio 16.25 06/12/19 04:20 Glucose 154.2 mg/dL (74-106) H 06/12/19 04:20 Calcium 8.64 mg/dL (8.4-10.2) 06/12/19 04:20 Total Bilirubin 0.41 mg/dL (0.2-1.3) 06/12/19 04:20 AST 17.4 U/L (14-36) 06/12/19 04:20 ALT 16.6 U/L (0-35) 06/12/19 04:20 Alkaline Phosphatase 92.9 U/L (53-141) 06/12/19 04:20 NT-Pro-B Natriuret Pep 45.900 pg/mL (0-124) 06/10/19 23:50 Total Protein 6.29 g/dL (6.3-8.2) L 06/12/19 04:20 Albumin 3.51 g/dL (3.5-5.0) 06/12/19 04:20 Globulin 2.78 06/12/19 04:20 Albumin/Globulin Ratio 1.26 06/12/19 04:20 Education Provided to Patient and Family: Transfer to [place] w/ care per SNF MD. BLE Wound C&S from clear serous drainage pending 06/12/19; last hospitalization culture was negative 05/17/19. Continue Clindamycin 600mg PO Q 6 hrs X10 days and then re-evaluation per MD. Wound care TID=Cleanse BLE gently w/ warm NS or Burows using wetted gauze, pat dry, then apply Triamcinolone acetonide ointment 0.1% sparingly to entire area of dermatitis, apply saturated but not dripping 4X4 gauze pads entire area and wrap w/ 6 Carloz gauze wrap in figure 8 fashion not so tightly to diminish circulation. Apply SCDs over dressings. The wet dressing & SCDs are left in place for two to three hours. Apply light application of Barrier ointment after removal of dressings to moisturize and seal in attained hydration. Then re-apply SCDs.or if not available PRETTY's--not too tight; elevate the affected extremity/extremities when seated and avoid prolonged standing; Keep TEDs & SCDs on patient at all times. Have encouraged patient to be compliant w/ treatments and her care. She tends to be very manipulative at times. Continue home O2 therapy 2-3L/NC. Follow-ups: F-U w/ [facility], after d/c from SNF. [facility]charge Disposition: [facility] Hospital Course: Olive Hansen is a 69 yo female patient of Nancy Michael APRN, well-known to [facility] w/ hx of Cellulitis BLE, Peripheral BLE edema d/t peripheral venous insufficiency, Chronic respiratory failure on home O2 (3L/NC), COPD, HTN, Colostomy POA, Hypothyroidism, Decreased mobility & endurance, Hypothyroidism, and Tobacco abuse disorder who presented to [facility] ER 06/10/19 23:21 w/ c/o's gradual worsening BLE cellulitis "pain, clear serous weeping & cracking sores" over the last week. She notes mild-moderate intermittent aching BLE w/ increasing tightness of entire lower extremities. She denies any skipping of doses of lasix; compliance w/ low sodium diet is questionable. It did not appear that she had been doing any wound care w/ her Silvadene. She is now living alone w/ multiple health issues and very limited mobility due to morbid obesity, also. She had no complaints re: respiratory/COPD issues upon admission. Her legs have been swollen tight and red w/ clear serous oozing. She has been afebrile and only complaint was BLE TTT gao/dermatitis areas. Since Day 1 the patient has been pleasant, but manipulative w/ her care. ER MD noted in report that he saw bedbugs on her legs and signs of cockroaches, not a new finding with this patient. [facility] in the [place] area provides her a caregiver a couple times a week. She needs more wound care support, but states she has no transportation to even see her PCP. Day 2 revealed no changes in her status except that her BLE edema had lessened some. 06/11/19 wt 241 lbs. Pt. was to be daily weights, but was refusing weight 06/12 & 06/13. Spironolactone was not added to her regimen w/ Lasix 20mg given PO daily. This seemed to be helping as edema did subside some, but do to wt. refusal cannot accurately assess. Clinadmycin 600mg IV Q 6 hrs. due to the limited administration time is also difficult to assess at this time, but per her Wound cultures w/ preliminary findings Heavy growth of both Gram+ Cocci and Gram-Rods was agreed to be the best choice per pharmacy consult at this time. Plan: [facility] to assume care w/ transfer to SNF today per facility transport. Edema BLE likely d/t peripheral Venous Insufficiency -- Chronic w/ exacerbation; Stable w/Very slowly improving. Con't Lasix; may need another agent, i.e spironolactone . No signs of DVT at this time; Lovenox while in hospital;last dose 06/13/2019 AM. Chronic Resp Failure with hypoxia, on constant home --Stable. O2 per protocol; Patient was down to 2 cigarettes/day and has declined nicotine patch. states she is stopping her nicotine use. COPD --Stable at present w/ O2 cont'd @ 2L/NC; Note chronic anemia d/t chronic disease COPD. No steroids were needed this hospitalization. Pt. COPD seems best controlled when she is doing nebs routinely and is able to omit her Symbicort inhaler when in hospital. Benign Essential HTN--Stable.; Does well w/ home meds; Heart healthy diet. Hypothyroidism --Stable w/o symptoms or c/o's; Con't home meds. Tobacco Abuse Disorder w/ Counseling - STable w/o tobacco use as per pt. plan. Decreased Mobility & Endurance w/ High Risk Falls--May benefit from PT. Patient lives alone and mainly stays isolated moving not very far from one little area at home. HFR precautions advised w/ her medications taken. Depression w/ Anxiety--Stable at present. NO SI or hallucinations.; Con't home meds. Colostomy POA--Stable; Site appears healthy. Colostomy care given w/ nursing asst. No issues at present. BPV --stable; no symptoms at present; Cont home meclizine.
[2019-06-13] MEDS ORDERED: NYSTOP POWDER TP PRN (11:47)
[2019-06-13] MEDS: KENALOG 0.1% TP SCH (11:51)
[2019-06-13 14:34] VITALS: BP 140/75; TEMP 98
== END 2019-06-13 16:30 | DRG 300 ==
LOC: ED 23:20 → MEDSURG B 06-11 01:02
PROVIDERS: ADMIT Nurse Practitioner Family; ATTEND Nurse Practitioner Family
DX: Z68.41 Body mass index [BMI] 40.0-44.9, adult; R53.83 Other fatigue; H81.10 Benign paroxysmal vertigo, unspecified ear; Z74.09 Other reduced mobility; A49.01 Methicillin susceptible Staphylococcus aureus infection, unspecified site; Z99.81 Dependence on supplemental oxygen; I87.2 Venous insufficiency (chronic) (peripheral); D64.9 Anemia, unspecified; Z79.899 Other long term (current) drug therapy; L03.115 Cellulitis of right lower limb; E66.01 Morbid (severe) obesity due to excess calories; Z93.3 Colostomy status; F17.210 Nicotine dependence, cigarettes, uncomplicated; J44.9 Chronic obstructive pulmonary disease, unspecified; F41.8 Other specified anxiety disorders; E03.9 Hypothyroidism, unspecified; E78.5 Hyperlipidemia, unspecified; Z71.6 Tobacco abuse counseling; J96.11 Chronic respiratory failure with hypoxia; I10 Essential (primary) hypertension; L03.116 Cellulitis of left lower limb

== ENCOUNTER 2020-04-24 17:04 | Inpatient (IN) ==
--- NOTE | 2020-04-24 17:38 | ED.PDOC ---
General <HUMBERTO EMERSON MD - Last Filed: 04/24/20 19:00> ED Provider: Dr. HUMBERTO EMERSON Chief Complaint: Shortness of Air Stated Complaint: 70 year old female smoker presents with increasing SOB, cough and BRIGGS over last 5-7 days. She stopped smoking 4-5 days ago but has continued to have SOB. Denies, fever, chills or sweats, n/v/d, chest pains, or urinary sx. She does note productive cough with increasing SOB and BRIGGS. PMH + for COPD, last admitted 8-9 months ago for similar exacerbation. Time Seen by Physician: 17:35 Mode of Arrival: Stretcher Information Source: Patient Exam Limitations: No limitations Primary Care Provider: LIZA MOSS MD Referred to ED by: Other (self) Nursing and Triage Documentation Reviewed and Agree: Yes Does patient meet sepsis criteria?: No System Inflammatory Response Syndrome: Not Applicable Sepsis Protocol: For patient's 13 years and over: Temp is 96.8 and below OR 101 and greater Pulse >90 BPM Resp >20/minute Acutely Altered Mental Status Are patient's symptoms suggestive of a new infection, such as: -Pneumonia -Skin, Soft Tissue -Endocarditis -UTI -Bone, Joint Infection -Implantable Device -Acute Abdominal Infection -Wound Infection -Meningitis -Blood Stream Catheter Infection -Unknown Respiratory Complaint Exam <HUMBERTO EMERSON MD - Last Filed: 04/24/20 19:00> Shortness of Air Complaint/Exam Onset/Duration: 4-5 days onset with acute exacerbation over last few days Symptoms Are: Worse Timing: Constant Initial Severity: Mild Current Severity: Moderate Character: Reports Dyspnea at rest, Dyspnea on exertion and Orthopnea Aggravating: Reports Movement, Deep breaths and URI Alleviating: Reports None Associated Signs and Symptoms: Reports Cough, Wheezing and Labored breathing Related History: Reports Similar episode History of Healthcare-Acquired Pneumonia: No Pulmonary Embolism Risk Factors: Reports Smoking Cardiac Risk Factors: Reports Smoking Pseudomonas Risk Factors: Reports Chronic Lung Disease Tuberculosis Risk Factors: Reports Chronic Resp. Faliure Home Oxygen Use: Yes Recent Stress Test: No Recent Echo/LV Function: No Respiratory Distress: Moderate Stridor Present: No Tracheal Deviation: No Accessory Muscle Use: No Retractions: Not Present Diminished Breath Sounds: Yes Prolonged Expiratory Phase: Yes Unable to Speak Full Sentences: Yes Leg Swelling: Yes Jt's Sign Present: No Grunting Respirations: No Kussmaul Respirations: No Differential Diagnoses: CHF, COPD Exacerbation and Pneumonia Quality Indicator For Non-Traumatic Chest Pain/Syncope: EKG Performed Review of Systems <HUMBERTO EMERSON MD - Last Filed: 04/24/20 19:00> Review Of Systems Constitutional: Reports Malaise and Weakness Eyes: Reports No symptoms Ears, Nose, Mouth, Throat: Reports No symptoms Respiratory: Reports Cough, Short of air and Wheezing Cardiac: Reports No symptoms GI: Reports No symptoms : Reports No symptoms Musculoskeletal: Reports No symptoms Skin: Reports No symptoms Neurological: Reports No symptoms Endocrine: Reports No symptoms Hematologic/Lymphatic: Reports No symptoms All Other Systems: Reviewed and Negative PFSH <HUMBERTO EMERSON MD - Last Filed: 04/24/20 19:00> Medical History Acquired hypothyroidism Acute anemia Acute respiratory failure with hypoxia Benzodiazepine dependence Bilateral lower leg cellulitis BPV (benign positional vertigo) Bronchopneumonia, unspecified organism Chronic obstructive pulmonary disease Chronic respiratory failure with hypoxia, on home oxygen therapy Colostomy present on admission (~05/16/19) Decreased mobility and endurance Depression with anxiety Diverticular disease Edema of both lower extremities due to peripheral venous insufficiency Elevated white blood cell count, unspecified Encounter for tobacco use cessation counseling Foul smelling vaginal discharge Generalized edema Hematuria Hematuria History of home oxygen therapy History of pneumonia Hyperlipidemia Hypertension, essential, benign 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 Major depressive disorder, recurrent, unspecified Obesity Respiratory syncytial virus as the cause of diseases classified elsewhere Stasis dermatitis of both legs Tobacco abuse Tobacco abuse disorder Venous insufficiency (chronic) (peripheral) Vitamin D deficiency Social History (Updated 11/06/19 @ 14:10 by DESTINI FULLER LPN) Smoking and tobacco status: Current every day smoker Tobacco type: cigarettes Smoking cigarettes per day: 7 Tobacco: How many years used: 50 Second hand smoke exposure: Yes Smoking risk assessment performed: No Alcohol intake: never Substance use type: does not use Yanira/buddhism: SHINTO Special yanira needs: No Agree to transfusion: Yes Adopted: Yes Caregiver/support person: Yes Household members: children Housing: house Lives independently: No (lives with family) Number of children: 4 Highest education level completed: some college, no degree Financial difficulty paying for basics: not applicable service: No Current occupational status: retired Current occupational exposures/hazards: No Pets and animals: Yes Leisure activites: other History of recent travel: No Sexually active: No Do you think of yourself as: straight/heterosexual Current gender identity: female Seatbelt use: never Helmet use: No (N/A) Drives intoxicated or rides with intoxicated feedmobile driver: No Current diet type/program: regular Caffeine: Yes Water heater temperature set < 120 degrees: Yes Working smoke detector in home: Yes Fire extinguisher in home: Yes Carbon monoxide detector in home: Yes Firearms in home: No Surgical History (Updated 11/18/19 @ 09:02 by VeriTran PR) History of section (Unknown) History of intestinal surgery History of tubal ligation Female Reproductive History Menstrual Hx Hysterectomy: No Hx Tubal Ligation: Yes Physical Exam <HUMBERTO EMERSON MD - Last Filed: 04/24/20 19:00> Physical Exam Appearance: Reports Ill-appearing and Obese Ill-appearing: Moderate Pain Distress: Moderate Eyes: Reports JM, EOMI and Conjunctiva clear ENT: Reports Ears normal, Nose normal and Oropharynx normal Neck: Supple Respiratory: Reports Airway patent, Breath sounds equal, Breath sounds diminishe d, Wheezes and Other (labored breathing) Cardiovascular: Reports RRR, Pulses normal, No rub, No murmur and Tachycardia GI/: Reports Soft, Nontender, No masses, Bowel sounds normal and No Organomegaly Musculoskeletal: Reports ROM intact, No edema, No calf tenderness and Limited ROM Skin: Reports Warm, Dry and Normal color Neurological: Reports Sensation intact, Motor intact, Reflexes intact, Cranial nerves intact, Alert and Oriented Psychiatric: Reports Affect appropriate and Mood appropriate Interpretation <HUMBERTO EMERSON MD - Last Filed: 04/24/20 19:00> Radiology Interpretation Radiology Interpretation By: Radiologist Exam Interpreted: Portable CXR [place] Reporter Time of [place]creage Reporter Interpretation: 17:35 Rate: Tachy Rhythm: Sinus Ectopy: None EKG Interpretation Time of EKG #1: 17:51 Rate: Tachy Rhythm: Sinus Ectopy: None [place]: NL ST Segment: Other Interpretation: Nonspecific changes Re-Evaluation <HUMBERTO EMERSON MD - Last Filed: 04/24/20 19:00> Re-Evaluation Time of Re-Evaluation: 18:30 Status: Improved Vital Signs Stable: Yes Appearance: NAD Lungs: Other (decreased BS) Skin: Warm and Dry Neuro: Alert and Oriented X3 CV: Other (tachycardic) Critical Care Note <HUMBERTO EMERSON MD - Last Filed: 04/24/20 19:00> Critical Care Note Total Critical Care Time (mins): 20 Course <HUMBERTO EMERSON MD - Last Filed: 04/24/20 19:00> Course Hematology/Chemistry: 04/24/20 17:53 04/24/20 17:53 Orders, Labs, Meds: Lab Review 04/24/20 04/24/20 04/24/20 17:53 17:53 17:53 WBC 16.60 H RBC 4.12 L Hgb 11.4 L Hct 37.2 MCV 90.3 MCH 27.7 MCHC 30.6 L RDW Coeff of [place] 17.6 H Plt Count 276 Immature Gran % (Auto) 0.4 Neut % (Auto) 84.7 H Lymph % (Auto) 6.0 L [place] % (Auto) 7.3 Eos % (Auto) 1.4 Baso % (Auto) 0.2 Neut # (Auto) 14.0 H Lymph # (Auto) 1.0 [place] # (Auto) 1.2 Eos # (Auto) 0.2 Baso # (Auto) 0.0 Immature Gran # (Auto) 0.1 PT 11.3 H INR 1.07 Puncture Site Base Excess O2 Saturation ABG pH ABG pCO2 ABG pO2 ABG HCO3 ABG Total CO2 Hemoglobin Oxyhemoglobin Carboxyhemoglobin Total Hemoglobin O2 Delivery Device Oxygen Liter Flow Sodium 138.0 Potassium 3.97 Chloride 92.7 L Carbon Dioxide 37.7 H Anion Gap 11.57 BUN 12.3 Creatinine 0.89 Estimated GFR (MDRD) 63.00 BUN/Creatinine Ratio 13.82 Glucose 132.3 H Lactic Acid Calcium 10.06 Total Bilirubin 0.96 AST 24.0 ALT 15.3 Alkaline Phosphatase 126.1 Total Creatine Kinase 74.5 Troponin I < 0.012 NT-Pro-B Natriuret Pep 48.300 Total Protein 8.52 H Albumin 4.24 Globulin 4.28 Albumin/Globulin Ratio 0.99 Procalcitonin D-Dimer Adenovirus (PCR) B. pertussis DNA (PCR) B.parapertussis DNA PCR C. pneumoniae DNA (PCR) Coronavirus OC43 (PCR) Coronavirus HKU1 (PCR) Coronavirus 229E (PCR) Coronavirus NL63 (PCR) Human Metapneumovir PCR Influenza Type A (PCR) Influenza B (RT-PCR) M. pneumoniae (PCR) Parainfluenza 1 (PCR) Parainfluenza 2 (PCR) Parainfluenza 3 (PCR) Parainfluenza 4 (PCR) RSV (PCR) Entero/Rhino (PCR) SARS-CoV-2 (PCR) 04/24/20 04/24/20 04/24/20 17:53 17:53 17:53 WBC RBC Hgb Hct MCV MCH MCHC RDW Coeff of [place] Plt Count Immature Gran % (Auto) Neut % (Auto) Lymph % (Auto) [place] % (Auto) Eos % (Auto) Baso % (Auto) Neut # (Auto) Lymph # (Auto) [place] # (Auto) Eos # (Auto) Baso # (Auto) Immature Gran # (Auto) PT INR Puncture Site Base Excess O2 Saturation ABG pH ABG pCO2 ABG pO2 ABG HCO3 ABG Total CO2 Hemoglobin Oxyhemoglobin Carboxyhemoglobin Total Hemoglobin O2 Delivery Device Oxygen Liter Flow Sodium Potassium Chloride Carbon Dioxide Anion Gap BUN Creatinine Estimated GFR (MDRD) BUN/Creatinine Ratio Glucose Lactic Acid 1.78 Calcium Total Bilirubin AST ALT Alkaline Phosphatase Total Creatine Kinase Troponin I NT-Pro-B Natriuret Pep Total Protein Albumin Globulin Albumin/Globulin Ratio Procalcitonin 0.87 D-Dimer 765.47 H Adenovirus (PCR) B. pertussis DNA (PCR) B.parapertussis DNA PCR C. pneumoniae DNA (PCR) Coronavirus OC43 (PCR) Coronavirus HKU1 (PCR) Coronavirus 229E (PCR) Coronavirus NL63 (PCR) Human Metapneumovir PCR Influenza Type A (PCR) Influenza B (RT-PCR) M. pneumoniae (PCR) Parainfluenza 1 (PCR) Parainfluenza 2 (PCR) Parainfluenza 3 (PCR) Parainfluenza 4 (PCR) RSV (PCR) Entero/Rhino (PCR) SARS-CoV-2 (PCR) 04/24/20 04/24/20 18:14 19:30 WBC RBC Hgb Hct MCV MCH MCHC RDW Coeff of [place] Plt Count Immature Gran % (Auto) Neut % (Auto) Lymph % (Auto) [place] % (Auto) Eos % (Auto) Baso % (Auto) Neut # (Auto) Lymph # (Auto) [place] # (Auto) Eos # (Auto) Baso # (Auto) Immature Gran # (Auto) PT INR Puncture Site Rbrach Base Excess 17.4 H O2 Saturation 96.7 ABG pH 7.39 ABG pCO2 70.0 H ABG pO2 88.0 ABG HCO3 42.4 H ABG Total CO2 44.5 H Hemoglobin 0.9 Oxyhemoglobin 95.6 Carboxyhemoglobin 2.7 H Total Hemoglobin 11.2 L O2 Delivery Device Nc Oxygen Liter Flow 6.00 Sodium Potassium Chloride Carbon Dioxide Anion Gap BUN Creatinine Estimated GFR (MDRD) BUN/Creatinine Ratio Glucose Lactic Acid Calcium Total Bilirubin AST ALT Alkaline Phosphatase Total Creatine Kinase Troponin I NT-Pro-B Natriuret Pep Total Protein Albumin Globulin Albumin/Globulin Ratio Procalcitonin D-Dimer Adenovirus (PCR) Not detected B. pertussis DNA (PCR) Not detected B.parapertussis DNA PCR Not detected C. pneumoniae DNA (PCR) Not detected Coronavirus OC43 (PCR) Not detected Coronavirus HKU1 (PCR) Not detected Coronavirus 229E (PCR) Not detected Coronavirus NL63 (PCR) Not detected Human Metapneumovir PCR Not detected Influenza Type A (PCR) Not detected Influenza B (RT-PCR) Not detected M. pneumoniae (PCR) Not detected Parainfluenza 1 (PCR) Not detected Parainfluenza 2 (PCR) Not detected Parainfluenza 3 (PCR) Not detected Parainfluenza 4 (PCR) Not detected RSV (PCR) Not detected Entero/Rhino (PCR) Not detected SARS-CoV-2 (PCR) Not detected Orders Category Date Time Status ABG DRAW REQUEST Stat CARDIO 04/24/20 17:40 Completed EKG-(ED ONLY) Stat CARDIO 20 17:39 Completed METERED DOSE INHALATION Routine CARDIO 04/24/20 19:15 Ordered ED APPLY O2 .ONCE EMERGENCY 1820 17:40 Active ED APPLY O2 .ONCE EMERGENCY 20 18:07 Active ED BELT LOOP CUTTER APPLIED .ONCE EMERGENCY 1820 17:40 Active ED VITAL SIGNS Q1HR EMERGENCY 18 17:40 Active ABG COOX Stat LAB 04/24/20 18:14 Completed BLOOD CULTURE (ED ONLY) Stat LAB 04/24/20 17:53 Received CBC W/ AUTO DIFF Stat LAB 04/24/20 17:53 Completed COMPREHENSIVE METABOLIC PANEL Stat LAB 04/24/20 17:53 Completed CREATINE KINASE Stat LAB 04/24/20 17:53 Completed D-DIMER Stat LAB 04/24/20 17:53 Completed LACTIC ACID Stat LAB 04/24/20 17:53 Completed NT-PROBNP Stat LAB 04/24/20 17:53 Completed PROCALCITONIN Stat LAB 04/24/20 17:53 Completed PT WITH INR Stat LAB 04/24/20 17:53 Completed RESPIRATORY PANEL 2.1 (PCR) Stat LAB 04/24/20 19:30 Completed SPUTUM CULTURE Stat LAB 04/24/20 18:15 Received TROPONIN I Stat LAB 04/24/20 17:53 Completed URINALYSIS C & S IF INDICATED Stat LAB 04/24/20 17:39 Uncollected Albuterol Inhaler(with Spacer) [Ventolin Hfa (Per Puff- MEDS 04/24/20 17:43 Discontinued with Spacer)] 2 puff IH ONCE STA Ceftriaxone/D5w 1 gm Premix [Rocephin 1 gm/50 ml D5w] MEDS 04/24/20 19:00 Active 1 gm in 50 ml IV DAILY Ipratropium Inhaler(Spacer) [Atrovent Hfa Inhaler (Per MEDS 04/24/20 18:15 Discontinued Puff-with Spacer)] 2 puff IH ONCE STA Methylprednisolone Sod Succ/Pf [Solu-Medrol 125 mg] MEDS 04/24/20 17:43 Discontinued 125 mg IVP ONCE STA Ringers Lactated Solution [Lactated Ringers] 1,000 ml MEDS 04/24/20 17:39 Discontinued IV BOLUS Vancomycin 1 gm MEDS 04/24/20 18:31 Discontinued 0.9 % Sodium Chloride [Sodium Chloride] 250 ml IV ONCE CHEST, 1V AP ONLY Stat RADS 04/24/20 17:39 Completed Medications Generic Name Dose Route Start Last Admin Trade Name Freq PRN Reason Stop Dose Admin CEFTRIAXONE/D5W 1 GM PREMIX 1 gm in 50 mls @ 75 mls/hr 04/24/20 19:00 04/24/20 20:20 Rocephin 1 Gm/50 Ml D5w IV 04/27/20 18:59 75 mls/hr DAILY IBIS Administration Discontinued Medications Generic Name Dose Route Start Last Admin Trade Name Freq PRN Reason Stop Dose Admin Albuterol Sulfate 2 puff 04/24/20 17:43 04/24/20 18:55 Albuterol Sulfate (Ventolin Hfa) 18 Gm 1 Puff With Spacer IH 04/24/20 17:44 2 puff ONCE STA Administration Lactated Ringer's 1,000 mls @ 1,000 mls/hr 04/24/20 17:39 04/24/20 18:39 Lactated Ringers IV 04/24/20 18:38 150 mls/hr BOLUS STA Administration Vancomycin HCl 1 gm/ Sodium 250 mls @ 250 mls/hr 04/24/20 18:31 Chloride IV 04/24/20 19:30 ONCE STA Ipratropium Hulbert 2 puff 04/24/20 18:15 04/24/20 18:55 Ipratropium [place]bert 12.9 Gm Hfa Inhaler Per Puff With Spacer IH 04/24/20 18:16 2 puff ONCE STA Administration Methylprednisolone Sodium Succinate 125 mg 04/24/20 17:43 04/24/20 18:55 Methylprednisolone Sod Succ/Pf 125 Mg/2 Ml Vial IVP 04/24/20 17:44 125 mg ON[place] [address] Diagnostic Imaging Diagnostic Imaging Report : [id number] Signed Patient: LUISA CHAVARRIA CAcct:[id number] Record: [id number] : 1950Loc: EDRoom/Bed: Age/Sex: 70 / FADM Status: REG ERDate of Service: 04/24/20 Ordering Physician: HUMBERTO EMERSON MD Procedure(s): CHEST, 1V AP ONLY Report Number(s): [id number] Accession Number(s): [id number] cc: LIZA MOSS MD; HUMBERTO EMERSON MD EXAM: Single view of the chest. History: Short of breath Comparison: Chest radiograph 06/11/2019 Findings: Heart is mildly enlarged. Patchy bilateral lung infiltrates. No appreciable pleural fluid and no pneumothorax. No acute osseous abnormalities. Impression: Patchy bilateral lung infiltrates suspicious for pneumonia Dictated By:KALEIGH ESCAMILLA Signed By:KALEIGH ESCAMILLA Dictated Date/Time: 04/24/201814 Transcribed Date/Time: 04/24/201814 Signed Date/Time: 04/24/201819 Vital Signs: Temp Pulse Resp BP Pulse Ox 04/24/20 17:05 98.6 F 107 H 32 H 158/107 H 97 <JULIETA VILLEDA MD - Last Filed: 04/24/20 21:00> Course Orders, Labs, Meds: Lab Review 04/24/20 04/24/20 04/24/20 17:53 17:53 17:53 WBC 16.60 H RBC 4.12 L Hgb 11.4 L Hct 37.2 MCV 90.3 MCH 27.7 MCHC 30.6 L RDW Coeff of [place] 17.6 H Plt Count 276 Immature Gran % (Auto) 0.4 Neut % (Auto) 84.7 H Lymph % (Auto) 6.0 L [place] % (Auto) 7.3 Eos % (Auto) 1.4 Baso % (Auto) 0.2 Neut # (Auto) 14.0 H Lymph # (Auto) 1.0 [place] # (Auto) 1.2 Eos # (Auto) 0.2 Baso # (Auto) 0.0 Immature Gran # (Auto) 0.1 PT 11.3 H INR 1.07 Puncture Site Base Excess O2 Saturation ABG pH ABG pCO2 ABG pO2 ABG HCO3 ABG Total CO2 Hemoglobin Oxyhemoglobin Carboxyhemoglobin Total Hemoglobin O2 Delivery Device Oxygen Liter Flow Sodium 138.0 Potassium 3.97 Chloride 92.7 L Carbon Dioxide 37.7 H Anion Gap 11.57 BUN 12.3 Creatinine 0.89 Estimated GFR (MDRD) 63.00 BUN/Creatinine Ratio 13.82 Glucose 132.3 H Lactic Acid Calcium 10.06 Total Bilirubin 0.96 AST 24.0 ALT 15.3 Alkaline Phosphatase 126.1 Total Creatine Kinase 74.5 Troponin I < 0.012 NT-Pro-B Natriuret Pep 48.300 Total Protein 8.52 H Albumin 4.24 Globulin 4.28 Albumin/Globulin Ratio 0.99 Procalcitonin D-Dimer Adenovirus (PCR) B. pertussis DNA (PCR) B.parapertussis DNA PCR C. pneumoniae DNA (PCR) Coronavirus OC43 (PCR) Coronavirus HKU1 (PCR) Coronavirus 229E (PCR) Coronavirus NL63 (PCR) Human Metapneumovir PCR Influenza Type A (PCR) Influenza B (RT-PCR) M. pneumoniae (PCR) Parainfluenza 1 (PCR) Parainfluenza 2 (PCR) Parainfluenza 3 (PCR) Parainfluenza 4 (PCR) RSV (PCR) Entero/Rhino (PCR) SARS-CoV-2 (PCR) 04/24/20 04/24/20 04/24/20 17:53 17:53 17:53 WBC RBC Hgb Hct MCV MCH MCHC RDW Coeff of [place] Plt Count Immature Gran % (Auto) Neut % (Auto) Lymph % (Auto) [place] % (Auto) Eos % (Auto) Baso % (Auto) Neut # (Auto) Lymph # (Auto) [place] # (Auto) Eos # (Auto) Baso # (Auto) Immature Gran # (Auto) PT INR Puncture Site Base Excess O2 Saturation ABG pH ABG pCO2 ABG pO2 ABG HCO3 ABG Total CO2 Hemoglobin Oxyhemoglobin Carboxyhemoglobin Total Hemoglobin O2 Delivery Device Oxygen Liter Flow Sodium Potassium Chloride Carbon Dioxide Anion Gap BUN Creatinine Estimated GFR (MDRD) BUN/Creatinine Ratio Glucose Lactic Acid 1.78 Calcium Total Bilirubin AST ALT Alkaline Phosphatase Total Creatine Kinase Troponin I NT-Pro-B Natriuret Pep Total Protein Albumin Globulin Albumin/Globulin Ratio Procalcitonin 0.87 D-Dimer 765.47 H Adenovirus (PCR) B. pertussis DNA (PCR) B.parapertussis DNA PCR C. pneumoniae DNA (PCR) Coronavirus OC43 (PCR) Coronavirus HKU1 (PCR) Coronavirus 229E (PCR) Coronavirus NL63 (PCR) Human Metapneumovir PCR Influenza Type A (PCR) Influenza B (RT-PCR) M. pneumoniae (PCR) Parainfluenza 1 (PCR) Parainfluenza 2 (PCR) Parainfluenza 3 (PCR) Parainfluenza 4 (PCR) RSV (PCR) Entero/Rhino (PCR) SARS-CoV-2 (PCR) 04/24/20 04/24/20 18:14 19:30 WBC RBC Hgb Hct MCV MCH MCHC RDW Coeff of [place] Plt Count Immature Gran % (Auto) Neut % (Auto) Lymph % (Auto) [place] % (Auto) Eos % (Auto) Baso % (Auto) Neut # (Auto) Lymph # (Auto) [place] # (Auto) Eos # (Auto) Baso # (Auto) Immature Gran # (Auto) PT INR Puncture Site Rbrach Base Excess 17.4 H O2 Saturation 96.7 ABG pH 7.39 ABG pCO2 70.0 H ABG pO2 88.0 ABG HCO3 42.4 H ABG Total CO2 44.5 H Hemoglobin 0.9 Oxyhemoglobin 95.6 Carboxyhemoglobin 2.7 H Total Hemoglobin 11.2 L O2 Delivery Device Nc Oxygen Liter Flow 6.00 Sodium Potassium Chloride Carbon Dioxide Anion Gap BUN Creatinine Estimated GFR (MDRD) BUN/Creatinine Ratio Glucose Lactic Acid Calcium Total Bilirubin AST ALT Alkaline Phosphatase Total Creatine Kinase Troponin I NT-Pro-B Natriuret Pep Total Protein Albumin Globulin Albumin/Globulin Ratio Procalcitonin D-Dimer Adenovirus (PCR) Not detected B. pertussis DNA (PCR) Not detected B.parapertussis DNA PCR Not detected C. pneumoniae DNA (PCR) Not detected Coronavirus OC43 (PCR) Not detected Coronavirus HKU1 (PCR) Not detected Coronavirus 229E (PCR) Not detected Coronavirus NL63 (PCR) Not detected Human Metapneumovir PCR Not detected Influenza Type A (PCR) Not detected Influenza B (RT-PCR) Not detected M. pneumoniae (PCR) Not detected Parainfluenza 1 (PCR) Not detected Parainfluenza 2 (PCR) Not detected Parainfluenza 3 (PCR) Not detected Parainfluenza 4 (PCR) Not detected RSV (PCR) Not detected Entero/Rhino (PCR) Not detected SARS-CoV-2 (PCR) Not detected Orders Category Date Time Status ABG DRAW REQUEST Stat CARDIO 04/24/20 17:40 Completed EKG-(ED ONLY) Stat CARDIO 04/24/20 17:39 Completed METERED DOSE INHALATION Routine CARDIO 04/24/20 19:15 Ordered ED APPLY O2 .ONCE EMERGENCY 20 17:40 Active ED APPLY O2 .ONCE EMERGENCY 20 18:07 Active ED BELT LOOP CUTTER APPLIED .ONCE EMERGENCY 04/24/20 17:40 Active ED VITAL SIGNS Q1HR EMERGENCY 04/24/20 17:40 Active ABG COOX Stat LAB 04/24/20 18:14 Completed BLOOD CULTURE (ED ONLY) Stat LAB 04/24/20 17:53 Received CBC W/ AUTO DIFF Stat LAB 04/24/20 17:53 Completed COMPREHENSIVE METABOLIC PANEL Stat LAB 04/24/20 17:53 Completed CREATINE KINASE Stat LAB 04/24/20 17:53 Completed D-DIMER Stat LAB 04/24/20 17:53 Completed LACTIC ACID Stat LAB 04/24/20 17:53 Completed NT-PROBNP Stat LAB 04/24/20 17:53 Completed PROCALCITONIN Stat LAB 04/24/20 17:53 Completed PT WITH INR Stat LAB 04/24/20 17:53 Completed RESPIRATORY PANEL 2.1 (PCR) Stat LAB 04/24/20 19:30 Completed SPUTUM CULTURE Stat LAB 04/24/20 18:15 Received TROPONIN I Stat LAB 04/24/20 17:53 Completed URINALYSIS C & S IF INDICATED Stat LAB 04/24/20 17:39 Uncollected Albuterol Inhaler(with Spacer) [Ventolin Hfa (Per Puff- MEDS 04/24/20 17:43 Discontinued with Spacer)] 2 puff IH ONCE STA Ceftriaxone/D5w 1 gm Premix [Rocephin 1 gm/50 ml D5w] MEDS 04/24/20 19:00 Active 1 gm in 50 ml IV DAILY Ipratropium Inhaler(Spacer) [Atrovent Hfa Inhaler (Per MEDS 04/24/20 18:15 Discontinued Puff-with Spacer)] 2 puff IH ONCE STA Methylprednisolone Sod Succ/Pf [Solu-Medrol 125 mg] MEDS 04/24/20 17:43 Discontinued 125 mg IVP ONCE STA Ringers Lactated Solution [Lactated Ringers] 1,000 ml MEDS 04/24/20 17:39 Discontinued IV BOLUS Vancomycin 1 gm MEDS 04/24/20 18:31 Discontinued 0.9 % Sodium Chloride [Sodium Chloride] 250 ml IV ONCE CHEST, 1V AP ONLY Stat RADS 04/24/20 17:39 Completed Medications Generic Name Dose Route Start Last Admin Trade Name Freq PRN Reason Stop Dose Admin CEFTRIAXONE/D5W 1 GM PREMIX 1 gm in 50 mls @ 75 mls/hr 04/24/20 19:00 04/24/20 20:20 Rocephin 1 Gm/50 Ml D5w IV 04/27/20 18:59 75 mls/hr DAILY IBIS Administration Discontinued Medications Generic Name Dose Route Start Last Admin Trade Name Freq PRN Reason Stop Dose Admin Albuterol Sulfate 2 puff 04/24/20 17:43 04/24/20 18:55 Albuterol Sulfate (Ventolin Hfa) 18 Gm 1 Puff With Spacer IH 04/24/20 17:44 2 puff ONCE STA Administration Lactated Ringer's 1,000 mls @ 1,000 mls/hr 04/24/20 17:39 04/24/20 18:39 Lactated Ringers IV 04/24/20 18:38 150 mls/hr BOLUS STA Administration Vancomycin HCl 1 gm/ Sodium 250 mls @ 250 mls/hr 04/24/20 18:31 Chloride IV 04/24/20 19:30 ONCE STA Ipratropium Hulbert 2 puff 04/24/20 18:15 04/24/20 18:55 Ipratropium Hulbert 12.9 Gm Hfa Inhaler Per Puff With Spacer IH 04/24/20 18:16 2 puff ONCE STA Administration Methylprednisolone Sodium Succinate 125 mg 04/24/20 17:43 04/24/20 18:55 Methylprednisolone Sod Succ/Pf 125 Mg/2 Ml Vial IVP 04/24/20 17:44 125 mg ONCE STA Administration Vital Signs: Temp Pulse Resp BP Pulse Ox 04/24/20 17:05 98.6 F 107 H 32 H 158/107 H 97 Discharge Plan Discharge Patient Disposition: ADMITTED INPATIENT Discharge Problem: Bronchopneumonia, unspecified organism Prescriptions: No Action albuterol sulfate 2.5 mg /3 mL (0.083 %) solution for nebulization 2.5 mg NEB Q4-6H PRN (Reason: shortness of air) Qty: 180 RF: 3 potassium chloride 10 mEq tablet extended release 10 meq PO BID Qty: 60 RF: 1 furosemide 20 mg tablet 20 mg PO QAM Qty: 90 RF: 0 budesonide-formoterol [Symbicort] 160-4.5 mcg/actuation HFA aerosol inhaler 2 puff INHALATION BID Qty: 10.2 RF: 2 nystatin [Nystop] 100,000 unit/gram powder 1 applic topical TID PRN (Reason: TO EXCORIATED AREAS) Qty: 60 RF: 0 hydroxyzine HCl 50 mg tablet 50 mg PO .daily Qty: 30 RF: 1 meclizine 25 mg tablet 25 mg PO BID PRN (Reason: dizziness) Qty: 60 RF: 0 escitalopram oxalate [Lexapro] 20 mg tablet 20 mg PO QDAY Qty: 90 RF: 0 acetaminophen 325 mg capsule 650 mg PO Q4H PRN (Reason: PAin or fever) RF: 0 levothyroxine 75 mcg tablet 75 mcg PO DAILY Qty: 90 RF: 1 albuterol sulfate [Ventolin HFA] 90 mcg/actuation HFA aerosol inhaler 1 - 2 puff inhalation Q4-6H PRN (Reason: shortness of breath or wheezing) Qty: 1 RF: 5 ED Provider: DEJUAN-JULIETA LANGLEY Condition: Fair <HUMBERTO EMERSON MD - Last Filed: 04/24/20 19:00> Physician Progress Note: 70 year old female smoker presents with increasing SOB, cough and BRIGGS for lst 7 days, acutely worse over last 4-5 days. Stopped smoking 4-5 days ago, no known covid exposures with negative COVID screen. Will need full ED workup, possible transfer to higher level of care depending on transfer availability and resuscitation status. Will start tx for CAP and see how she progresses. Case will be signed out to Dr. Tabares for final disposition and/or transfer pending Covid Testing.
[2020-04-24] MEDS ORDERED: LACTATED RINGERS 1,000 ML IV STA (17:39)
[2020-04-24] MEDS ORDERED: SOLU-MEDROL 125 MG IVP STA (17:43)
[2020-04-24] MEDS ORDERED: VENTOLIN HFA (PER PUFF-WITH SPACER) IH STA (17:43)
[2020-04-24 17:57] LABS: BASOPHILS % (AUTO) 0.2 % (0.0-3.0); EOSINOPHILS # (AUTO) 0.2 K/ul (0.0-0.7); EOSINOPHILS % (AUTO) 1.4 % (0.0-7.0); HEMATOCRIT 37.2 % (37.0-47.0); HEMOGLOBIN 11.4 g/dl (12.0-16.0); IMMATURE GRANULOCYTE # (AUTO) 0.1 (0.0-1.0); IMMATURE GRANULOCYTE % (AUTO) 0.4 % (0.0-5.0); MEAN CORPUSCULAR HEMOGLOBIN 27.7 pg (27.0-31.0); MEAN CORPUSCULAR HGB CONC 30.6 (31.8-35.4); MEAN CORPUSCULAR VOLUME 90.3 fl (81.0-99.0); MONOCYTES # (AUTO) 1.2 K/uL (0.4-2.0); MONOCYTES % (AUTO) 7.3 (0-10); NEUTROPHILS % (AUTO) 84.7 % (42.2-75.2); PLATELET COUNT 276 10^3/uL (140-440); RDW COEFFICIENT OF VARIATION 17.6 % (11.6-14.8); RED BLOOD COUNT 4.12 10^6/ul (4.20-5.40)
[2020-04-24] MEDS ORDERED: COMBIVENT RESPIMAT INHALER IH SCH (18:00)
[2020-04-24 18:10] LABS: ALANINE AMINOTRANSFERASE 15.3 U/L (0-35); ALBUMIN 4.24 g/dL (3.5-5.0); ALKALINE PHOSPHATASE 126.1 U/L (53-141); BILIRUBIN,TOTAL 0.96 mg/dL (0.2-1.3); BLOOD UREA NITROGEN 12.3 mg/dL (7-17); CALCIUM 10.06 mg/dL (8.4-10.2); CHLORIDE 92.7 mmol/L (98-107); CREATINE KINASE 74.5 U/L (30-135); CREATININE 0.89 mg/dL (0.60-1.30); GLUCOSE 132.3 mg/dL (74-106); POTASSIUM 3.97 mmol/L (3.5-5.1); TOTAL PROTEIN 8.52 g/dL (6.3-8.2)
[2020-04-24 18:15] LABS: ABG PH 7.39 (7.35-7.45)
[2020-04-24] MEDS ORDERED: ATROVENT HFA INHALER (PER PUFF-WITH SPACER) IH STA (18:15)
[2020-04-24 18:16] LABS: PROTHROMBIN TIME 11.3 SEC (9.3-11.0)
[2020-04-24 18:17] LABS: CARBON DIOXIDE 37.7 mmol/L (22-30.0)
--- NOTE | 2020-04-24 18:20 | DI ---
EXAM: Single view of the chest. History: Short of breath Comparison: Chest radiograph 06/11/2019 Findings: Heart is mildly enlarged. Patchy bilateral lung infiltrates. No appreciable pleural flui d and no pneumothorax. No acute osseous abnormalities. Impression: Patchy bilateral lung infiltrates suspicious for pneumonia
[2020-04-24 18:22] LABS: TROPONIN I < 0.012 ng/ml (0.0000-0.120)
[2020-04-24] MEDS ORDERED: VANCOMYCIN 1 GM in SODIUM CHLORIDE 250 ML IV STA (18:31)
[2020-04-24] MEDS: ROCEPHIN 1 GM/50 ML D5W 1 GM/50 ML BAG IV SCH (20:20)
[2020-04-24] MEDS ORDERED: TYLENOL PO PRN ×2 (21:01→21:13)
[2020-04-24] MEDS ORDERED: ANTIVERT PO PRN (21:06)
--- NOTE | 2020-04-24 21:53 | PCM ---
Chief Complaint Chief Complaint: i am sob History of Present Illness History of Present Illness: THIs is a 70 yr old lady with hx of tobacco use and chronic resp failure on home oxygen who presented to the ed with 4 days of cough productive of yellow sputum and dyspnea. Cxr revealed pneumonia and gases revealed hypoxia wiht hypercarbia. Review of Systems Constitutional: Reports Weakness Eyes: Reports No symptoms Nose: Reports No symptoms Throat: Reports No symptoms Mouth: Reports No symptoms Respiratory: Reports Cough and Shortness of air Cardiovascular: Reports No symptoms Gastrointestinal: Reports No symptoms Genitourinary: Reports No symptoms Neurological: Reports No symptoms Musculoskeletal: Reports No symptoms Skin: Reports No symptoms Immunology: Reports No symptoms Hematology: Reports No symptoms Endocrine: Reports No symptoms Psychiatric: Reports No symptoms Habits: Reports Tobacco use Allergies Allergies Allergy/AdvReac Type Severity Reaction Status Date / Time No Known Allergies Allergy Uncoded 04/24/20 17:20 [facility] Medical History Acquired hypothyroidism Acute anemia Acute respiratory failure with hypoxia Benzodiazepine dependence Bilateral lower leg cellulitis BPV (benign positional vertigo) Bronchopneumonia, unspecified organism Chronic obstructive pulmonary disease Chronic respiratory failure with hypoxia, on home oxygen therapy Colostomy present on admission (~05/16/19) Decreased mobility and endurance Depression with anxiety Diverticular disease Edema of both lower extremities due to peripheral venous insufficiency Elevated white blood cell count, unspecified Encounter for tobacco use cessation counseling Foul smelling vaginal discharge Generalized edema Hematuria Hematuria History of home oxygen therapy History of pneumonia Hyperlipidemia Hypertension, essential, benign Hypothyroidism FCI use of drug Major depressive disorder, recurrent, unspecified Obesity Respiratory syncytial virus as the cause of diseases classified elsewhere Stasis dermatitis of both legs Tobacco abuse Tobacco abuse disorder Venous insufficiency (chronic) (peripheral) Vitamin D deficiency Surgical History History of section (Unknown) History of intestinal surgery History of tubal ligation Social History Smoking and tobacco status: Current every day smoker Tobacco type: cigarettes Smoking cigarettes per day: 7 Tobacco: How many years used: 50 Second hand smoke exposure: Yes Smoking risk assessment performed: No Alcohol intake: never Substance use type: does not use Yanira/restorationist: EPISCOPAL Special yanira needs: No Agree to transfusion: Yes Adopted: Yes Caregiver/support person: Yes Household members: children Housing: house Lives independently: No (lives with family) Number of children: 4 Highest education level completed: some college, no degree Financial difficulty paying for basics: not applicable service: No Current occupational status: retired Current occupational exposures/hazards: No Pets and animals: Yes Leisure activites: other History of recent travel: No Sexually active: No Do you think of yourself as: straight/heterosexual Current gender identity: female Seatbelt use: never Helmet use: No (N/A) Drives intoxicated or rides with intoxicated rear load truck driver: No Current diet type/program: regular Caffeine: Yes Water heater temperature set < 120 degrees: Yes Working smoke detector in home: Yes Fire extinguisher in home: Yes Carbon monoxide detector in home: Yes Firearms in home: No Medications Medications: Medications Generic Name Dose Route Start Last Admin Trade Name Freq PRN Reason Stop Dose Admin Acetaminophen 650 mg 04/24/20 21:01 Acetaminophen 325 Mg Tablet PO Q4H PRN Mild Pain Acetaminophen 650 mg 04/24/20 21:13 Acetaminophen 325 Mg Tablet PO Q4H PRN Mild Pain Albuterol Sulfate 2 puff 04/25/20 09:00 Albuterol Sulfate 8.5 Gm Inhaler (Single Patient Use) IH QID IBIS Budesonide/Formoterol Fumarate 2 puff 04/25/20 09:00 Budesonide/Formoterol Fumarate 160/4.5 Mcg Inhaler IH BID IBIS Enoxaparin Sodium 40 mg 04/25/20 09:00 Enoxaparin Sodium 40 Mg/0.4 Ml Syr SUBCUT DAILY IBIS Escitalopram Oxalate 20 mg 04/25/20 09:00 Escitalopram Oxalate 10 Mg Tablet PO DAILY IBIS Furosemide 20 mg 04/25/20 09:00 Furosemide 20 Mg Tablet PO QAM IBIS Hydroxyzine HCl 50 mg 04/24/20 21:30 Hydroxyzine Hcl 25 Mg Tablet PO DAILY IBIS CEFTRIAXONE/D5W 1 GM PREMIX 1 gm in 50 mls @ 75 mls/hr 04/24/20 19:00 04/24/20 20:20 Rocephin 1 Gm/50 Ml D5w IV 04/27/20 18:59 75 mls/hr DAILY IBIS Administration Doxycycline Hyclate 100 mg/ 100 mls @ 50 mls/hr 12/18/20 22:30 Sodium Chloride IV 04/27/20 22:29 Q12HR [facility] Ipratropium Bosler 2 puff 04/25/20 09:00 Ipratropium Bosler 12.9 Gm Inhaler Single Patient Use IH QID IBIS Levothyroxine Sodium 75 mcg 04/25/20 06:30 Levothyroxine Sodium 75 Mcg Tablet PO QDAC IBIS Meclizine HCl 25 mg 04/24/20 21:06 Meclizine Hcl 25 Mg Tablet PO BID PRN Vertigo Methylprednisolone Sodium Succinate 40 mg 04/25/20 05:00 Methylprednisolone Sod Succ/Pf 40 Mg/Ml Vial IVP Q8HR IBIS Nystatin 1 applic 04/24/20 21:06 Nystatin 15 Gm Powder TP TID PRN Rash Potassium Chloride 10 meq 04/25/20 09:00 Potassium Chloride 10 Meq Capsule.Er PO BID IBIS Body Composition Height: 5 ft 3 in Weight: 221 lb 1.978 oz Body Mass Index (BMI): 39.2 Vital Signs Temperature: 98.6 F Pulse Rate: 107 Respiratory Rate: 32 Blood Pressure: 158/107 O2 Sat by Pulse Oximetry: 97 Physical Examination Appearance: Reports Ill-appearing Ill-appearing: Mild Pain Distress: None Eyes: Reports JM, EOMI and Conjunctiva clear ENT: Reports Ears normal Neck: Supple Respiratory: Reports Crackles and Rhonchi Cardiovascular: Reports RRR, Pulses normal and No rub GI/: Reports Soft and Nontender Musculoskeletal: Reports Normal strength Skin: Reports Warm, Dry and Normal color Neurological: Reports Sensation intact, Motor intact, Reflexes intact, Cranial nerves intact, Alert and Oriented Psychiatric: Reports Affect appropriate and Mood appropriate Lab/Tests/Diagnostic Imaging Lab/Tests/Diagnostic Imaging: Lab Review 04/24/20 04/24/20 04/24/20 17:53 17:53 17:53 WBC 16.60 H RBC 4.12 L Hgb 11.4 L Hct 37.2 MCV 90.3 MCH 27.7 MCHC 30.6 L RDW Coeff of [place] 17.6 H Plt Count 276 Immature Gran % (Auto) 0.4 Neut % (Auto) 84.7 H Lymph % (Auto) 6.0 L [place] % (Auto) 7.3 Eos % (Auto) 1.4 Baso % (Auto) 0.2 Neut # (Auto) 14.0 H Lymph # (Auto) 1.0 [place] # (Auto) 1.2 Eos # (Auto) 0.2 Baso # (Auto) 0.0 Immature Gran # (Auto) 0.1 PT 11.3 H INR 1.07 Puncture Site Base Excess O2 Saturation ABG pH ABG pCO2 ABG pO2 ABG HCO3 ABG Total CO2 Hemoglobin Oxyhemoglobin Carboxyhemoglobin Total Hemoglobin O2 Delivery Device Oxygen Liter Flow Sodium 138.0 Potassium 3.97 Chloride 92.7 L Carbon Dioxide 37.7 H Anion Gap 11.57 BUN 12.3 Creatinine 0.89 Estimated GFR (MDRD) 63.00 BUN/Creatinine Ratio 13.82 Glucose 132.3 H Lactic Acid Calcium 10.06 Total Bilirubin 0.96 AST 24.0 ALT 15.3 Alkaline Phosphatase 126.1 Total Creatine Kinase 74.5 Troponin I < 0.012 NT-Pro-B Natriuret Pep 48.300 Total Protein 8.52 H Albumin 4.24 Globulin 4.28 Albumin/Globulin Ratio 0.99 Procalcitonin D-Dimer Adenovirus (PCR) B. pertussis DNA (PCR) B.parapertussis DNA PCR C. pneumoniae DNA (PCR) Coronavirus OC43 (PCR) Coronavirus HKU1 (PCR) Coronavirus 229E (PCR) Coronavirus NL63 (PCR) Human Metapneumovir PCR Influenza Type A (PCR) Influenza B (RT-PCR) M. pneumoniae (PCR) Parainfluenza 1 (PCR) Parainfluenza 2 (PCR) Parainfluenza 3 (PCR) Parainfluenza 4 (PCR) RSV (PCR) Entero/Rhino (PCR) SARS-CoV-2 (PCR) 04/24/20 04/24/20 04/24/20 17:53 17:53 17:53 WBC RBC Hgb Hct MCV MCH MCHC RDW Coeff of [place] Plt Count Immature Gran % (Auto) Neut % (Auto) Lymph % (Auto) [place] % (Auto) Eos % (Auto) Baso % (Auto) Neut # (Auto) Lymph # (Auto) [place] # (Auto) Eos # (Auto) Baso # (Auto) Immature Gran # (Auto) PT INR Puncture Site Base Excess O2 Saturation ABG pH ABG pCO2 ABG pO2 ABG HCO3 ABG Total CO2 Hemoglobin Oxyhemoglobin Carboxyhemoglobin Total Hemoglobin O2 Delivery Device Oxygen Liter Flow Sodium Potassium Chloride Carbon Dioxide Anion Gap BUN Creatinine Estimated GFR (MDRD) BUN/Creatinine Ratio Glucose Lactic Acid 1.78 Calcium Total Bilirubin AST ALT Alkaline Phosphatase Total Creatine Kinase Troponin I NT-Pro-B Natriuret Pep Total Protein Albumin Globulin Albumin/Globulin Ratio Procalcitonin 0.87 D-Dimer 765.47 H Adenovirus (PCR) B. pertussis DNA (PCR) B.parapertussis DNA PCR C. pneumoniae DNA (PCR) Coronavirus OC43 (PCR) Coronavirus HKU1 (PCR) Coronavirus 229E (PCR) Coronavirus NL63 (PCR) Human Metapneumovir PCR Influenza Type A (PCR) Influenza B (RT-PCR) M. pneumoniae (PCR) Parainfluenza 1 (PCR) Parainfluenza 2 (PCR) Parainfluenza 3 (PCR) Parainfluenza 4 (PCR) RSV (PCR) Entero/Rhino (PCR) SARS-CoV-2 (PCR) 04/24/20 04/24/20 18:14 19:30 WBC RBC Hgb Hct MCV MCH MCHC RDW Coeff of [place] Plt Count Immature Gran % (Auto) Neut % (Auto) Lymph % (Auto) [place] % (Auto) Eos % (Auto) Baso % (Auto) Neut # (Auto) Lymph # (Auto) [place] # (Auto) Eos # (Auto) Baso # (Auto) Immature Gran # (Auto) PT INR Puncture Site Rbrach Base Excess 17.4 H O2 Saturation 96.7 ABG pH 7.39 ABG pCO2 70.0 H ABG pO2 88.0 ABG HCO3 42.4 H ABG Total CO2 44.5 H Hemoglobin 0.9 Oxyhemoglobin 95.6 Carboxyhemoglobin 2.7 H Total Hemoglobin 11.2 L O2 Delivery Device Nc Oxygen Liter Flow 6.00 Sodium Potassium Chloride Carbon Dioxide Anion Gap BUN Creatinine Estimated GFR (MDRD) BUN/Creatinine Ratio Glucose Lactic Acid Calcium Total Bilirubin AST ALT Alkaline Phosphatase Total Creatine Kinase Troponin I NT-Pro-B Natriuret Pep Total Protein Albumin Globulin Albumin/Globulin Ratio Procalcitonin D-Dimer Adenovirus (PCR) Not detected B. pertussis DNA (PCR) Not detected B.parapertussis DNA PCR Not detected C. pneumoniae DNA (PCR) Not detected Coronavirus OC43 (PCR) Not detected Coronavirus HKU1 (PCR) Not detected Coronavirus 229E (PCR) Not detected Coronavirus NL63 (PCR) Not detected Human Metapneumovir PCR Not detected Influenza Type A (PCR) Not detected Influenza B (RT-PCR) Not detected M. pneumoniae (PCR) Not detected Parainfluenza 1 (PCR) Not detected Parainfluenza 2 (PCR) Not detected Parainfluenza 3 (PCR) Not detected Parainfluenza 4 (PCR) Not detected RSV (PCR) Not detected Entero/Rhino (PCR) Not detected SARS-CoV-2 (PCR) Not detected Orders Category Date Time Status ADMIT PATIENT INPATIENT .TO MEDSURG (MONITORED BED) ADMISSION 04/24/20 21: 00 Active ABG DRAW REQUEST DAILY@0600 CARDIO 04/25/20 06:00 Ordered ABG DRAW REQUEST DAILY@0600 CARDIO 04/26/20 06:00 Ordered ABG DRAW REQUEST DAILY@0600 CARDIO 04/27/20 06:00 Ordered ABG DRAW REQUEST DAILY@0600 CARDIO 04/28/20 06:00 Ordered ABG DRAW REQUEST Stat CARDIO 04/24/20 17:40 Completed EKG-(ED ONLY) Stat CARDIO 04/24/20 17:39 Completed METERED DOSE INHALATION Routine CARDIO 04/24/20 19:15 Ordered OXYGEN Routine CARDIO 04/24/20 21:02 Ordered VAPOTHERM Routine CARDIO 04/24/20 21:09 Ordered ACTIVITY .BR with BRP CARE 04/24/20 21:01 Active INTAKE & OUTPUT Q8HR CARE 04/24/20 21:01 Active TELEMETRY MONITORING TELE CARE 04/24/20 21:00 Active VITAL SIGNS Q8HR CARE 04/24/20 21:01 Active REGULAR DIET DIETARY 04/24/20 Breakfast Ordered ED APPLY O2 .ONCE EMERGENCY 04/24/20 17:40 Active ED APPLY O2 .ONCE EMERGENCY 04/24/20 18:07 Active ED LEVER TENDER APPLIED .ONCE EMERGENCY 04/24/20 17:40 Active ED VITAL SIGNS Q1HR EMERGENCY 04/24/20 17:40 Active ABG COOX DAILY@0600 LAB 04/25/20 06:00 Ordered ABG COOX DAILY@0600 LAB 04/26/20 06:00 Ordered ABG COOX Stat LAB 04/24/20 18:14 Completed BLOOD CULTURE (ED ONLY) Stat LAB 04/24/20 17:53 Received CBC W/ AUTO DIFF DAILY@0600 LAB 04/25/20 06:00 Ordered CBC W/ AUTO DIFF DAILY@0600 LAB 04/26/20 06:00 Ordered CBC W/ AUTO DIFF Stat LAB 04/24/20 17:53 Completed COMPREHENSIVE METABOLIC PANEL DAILY@0600 LAB 04/25/20 06:00 Ordered COMPREHENSIVE METABOLIC PANEL DAILY@0600 LAB 04/26/20 06:00 Ordered COMPREHENSIVE METABOLIC PANEL Stat LAB 04/24/20 17:53 Completed CREATINE KINASE Stat LAB 04/24/20 17:53 Completed D-DIMER Stat LAB 04/24/20 17:53 Completed LACTIC ACID Stat LAB 04/24/20 17:53 Completed NT-PROBNP Stat LAB 04/24/20 17:53 Completed PROCALCITONIN Stat LAB 04/24/20 17:53 Completed PT WITH INR Stat LAB 04/24/20 17:53 Completed RESPIRATORY PANEL 2.1 (PCR) Stat LAB 04/24/20 19:30 Completed SPUTUM CULTURE Stat LAB 04/24/20 18:15 Received TROPONIN I Stat LAB 04/24/20 17:53 Completed URINALYSIS C & S IF INDICATED Stat LAB 04/24/20 17:39 Uncollected Acetaminophen [Tylenol] MEDS 04/24/20 21:01 Active 650 mg PO Q4H PRN Acetaminophen [Tylenol] MEDS 04/24/20 21:13 Active 650 mg PO Q4H PRN Albuterol Inhaler (Single Pt) [Proair Hfa (Single MEDS 04/25/20 09:00 Active Patient Use)] 2 puff IH QID Albuterol Inhaler(with Spacer) [Ventolin Hfa (Per Puff- MEDS 04/24/20 17:43 Discontinued with Spacer)] 2 puff IH ONCE STA Budesonide/Formoterol Fumarate [Symbicort 160-4.5 Mcg MEDS 04/25/20 09:00 Active Inhaler] 2 puff IH BID Ceftriaxone/D5w 1 gm Premix [Rocephin 1 gm/50 ml D5w] MEDS 04/24/20 19:00 Active 1 gm in 50 ml IV DAILY Ceftriaxone/D5w 1 gm Premix [Rocephin 1 gm/50 ml D5w] MEDS 04/25/20 09:00 Discontinued 1 gm in 50 ml IV DAILY Doxycycline Hyclate Inj [Doxy-100] 100 mg MEDS 04/24/20 22:30 Active 0.9 % Sodium Chloride [Sodium Chloride] 100 ml IV Q12HR Enoxaparin Sodium [Lovenox] MEDS 04/25/20 09:00 Active 40 mg SUBCUT DAILY Escitalopram Oxalate [Lexapro] MEDS 04/25/20 09:00 Active 20 mg PO DAILY Furosemide [Lasix Tab] MEDS 04/25/20 09:00 Active 20 mg PO QAM Hydroxyzine HCl [Atarax] MEDS 04/24/20 21:30 Active 50 mg PO DAILY Ipratropium Inhaler(Single Pt) [Atrovent Hfa Inhaler ( MEDS 04/25/20 09:00 Active Single Patient Use)] 2 puff IH QID Ipratropium Inhaler(Spacer) [Atrovent Hfa Inhaler (Per MEDS 04/24/20 18:15 Discontinued Puff-with Spacer)] 2 puff IH ONCE STA Levothyroxine Sodium [Synthroid] MEDS 04/25/20 06:30 Active 75 mcg PO QDAC Meclizine HCl [Antivert] MEDS 04/24/20 21:06 Active 25 mg PO BID PRN Methylprednisolone Sod Succ/Pf [Solu-Medrol 125 mg] MEDS 04/24/20 17:43 Discontinued 125 mg IVP ONCE STA Methylprednisolone Sod Succ/Pf [Solu-Medrol 40 mg] MEDS 04/25/20 05:00 Active 40 mg IVP Q8HR Nystatin [Nystop Powder] MEDS 04/24/20 21:06 Active 1 applic TP TID PRN Potassium Chloride [Micro-K Cap] MEDS 04/25/20 09:00 Active 10 meq PO BID Ringers Lactated Solution [Lactated Ringers] 1,000 ml MEDS 04/24/20 17:39 Discontinued IV BOLUS Vancomycin 1 gm MEDS 04/24/20 18:31 Discontinued 0.9 % Sodium Chloride [Sodium Chloride] 250 ml IV ONCE RESUSCITATION STATUS Routine OTHERS 04/24/20 21:01 Ordered CHEST, 1V AP ONLY Stat RADS 04/24/20 17:39 Completed CHEST, 2 VIEWS PA & LAT Stat RADS 04/25/20 07:00 Ordered Medications Generic Name Dose Route Start Last Admin Trade Name Freq PRN Reason Stop Dose Admin Acetaminophen 650 mg 04/24/20 21:01 Acetaminophen 325 Mg Tablet PO Q4H PRN Mild Pain Acetaminophen 650 mg 04/24/20 21:13 Acetaminophen 325 Mg Tablet PO Q4H PRN Mild Pain Albuterol Sulfate 2 puff 04/25/20 09:00 Albuterol Sulfate 8.5 Gm Inhaler (Single Patient Use) IH QID IBIS Budesonide/Formoterol Fumarate 2 puff 04/25/20 09:00 Budesonide/Formoterol Fumarate 160/4.5 Mcg Inhaler IH BID IBIS Enoxaparin Sodium 40 mg 04/25/20 09:00 Enoxaparin Sodium 40 Mg/0.4 Ml Syr SUBCUT DAILY [facility] Escitalopram Oxalate 20 mg 04/25/20 09:00 Escitalopram Oxalate 10 Mg Tablet PO DAILY IBIS Furosemide 20 mg 04/25/20 09:00 Furosemide 20 Mg Tablet PO QAM [facility] Hydroxyzine HCl 50 mg 04/24/20 21:30 Hydroxyzine Hcl 25 Mg Tablet PO DAILY IBIS CEFTRIAXONE/D5W 1 GM PREMIX 1 gm in 50 mls @ 75 mls/hr 04/24/20 19:00 04/24/20 20:20 Rocephin 1 Gm/50 Ml D5w IV 04/27/20 18:59 75 mls/hr DAILY [facility] Administration Doxycycline Hyclate 100 mg/ 100 mls @ 50 mls/hr 04/24/20 22:30 Sodium Chloride IV 04/27/20 22:29 Q12HR [facility] Ipratropium [place] 2 puff 04/25/20 09:00 Ipratropium [place] 12.9 Gm Inhaler Single Patient Use IH QID [facility] Levothyroxine Sodium 75 mcg 04/25/20 06:30 Levothyroxine Sodium 75 Mcg Tablet PO QDAC [facility] Meclizine HCl 25 mg 04/24/20 21:06 Meclizine Hcl 25 Mg Tablet PO BID PRN Vertigo Methylprednisolone Sodium Succinate 40 mg 04/25/20 05:00 Methylprednisolone Sod Succ/Pf 40 Mg/Ml Vial IVP Q8HR [facility] Nystatin 1 applic 04/24/20 21:06 Nystatin 15 Gm Powder TP TID PRN Rash Potassium Chloride 10 meq 04/25/20 09:00 Potassium Chloride 10 Meq Capsule.Er PO BID IBIS Discontinued Medications Generic Name Dose Route Start Last Admin Trade Name Freq PRN Reason Stop Dose Admin Albuterol Sulfate 2 puff 04/24/20 17:43 04/24/20 18:55 Albuterol Sulfate (Ventolin Hfa) 18 Gm 1 Puff With Spacer IH 04/24/20 17:44 2 puff ONCE STA Administration Lactated Ringer's 1,000 mls @ 1,000 mls/hr 04/24/20 17:39 04/24/20 18:39 Lactated Ringers IV 04/24/20 18:38 150 mls/hr BOLUS STA Administration Vancomycin HCl 1 gm/ Sodium 250 mls @ 250 mls/hr 04/24/20 18:31 04/24/20 21:31 Chloride IV 04/24/20 19:30 250 mls/hr ONCE STA Administration CEFTRIAXONE/D5W 1 GM PREMIX 1 gm in 50 mls @ 75 mls/hr 04/25/20 09:00 Rocephin 1 Gm/50 Ml D5w IV 04/28/20 08:59 DAILY IBIS Ipratropium [place] 2 puff 04/24/20 18:15 04/24/20 18:55 Ipratropium [place] 12.9 Gm Hfa Inhaler Per Puff With Spacer IH 04/24/20 18:16 2 puff ONCE STA Administration Methylprednisolone Sodium Succinate 125 mg 04/24/20 17:43 04/24/20 18:55 Methylprednisolone Sod Succ/Pf 125 Mg/2 Ml Vial IVP 04/24/20 17:44 125 mg ONCE STA Administration Assessment (1) Acute respiratory failure: Status: Acute Code(s): J96.00 - Acute respiratory failure, unspecified whether with hypoxia or hypercapnia SNOMED Code(s): 83484197 (2) Community acquired bacterial pneumonia: Status: Acute Code(s): J15.9 - Unspecified bacterial pneumonia SNOMED Code(s): 171072661 Plan Plan: antbx, steroids, vapotherm for oxygenation, dnr----see orders
[2020-04-24 22:34] VITALS: BMI 39.1
[2020-04-24] MEDS: DOXY-100 100 MG in SODIUM CHLORIDE 100 ML IV SCH (22:59)
[2020-04-24] MEDS: ATARAX PO SCH (22:59)
[2020-04-25] MEDS: VENTOLIN HFA (PER PUFF-WITH SPACER) IH SCH ×5 (05:00→19:20)
[2020-04-25] MEDS: SOLU-MEDROL 40 MG IVP SCH ×3 (05:00→21:18)
[2020-04-25] MEDS ORDERED: VENTOLIN HFA (PER PUFF-WITH SPACER) IH SCH ×2 (06:00→10:00)
[2020-04-25 06:18] LABS: BASOPHILS # (AUTO) 0.1 K/uL (0-0.2); BASOPHILS % (AUTO) 0.3 % (0.0-3.0); EOSINOPHILS # (AUTO) 0.1 K/ul (0.0-0.7); EOSINOPHILS % (AUTO) 0.3 % (0.0-7.0); HEMATOCRIT 35.2 % (37.0-47.0); HEMOGLOBIN 10.7 g/dl (12.0-16.0); IMMATURE GRANULOCYTE # (AUTO) 0.1 (0.0-1.0); IMMATURE GRANULOCYTE % (AUTO) 0.8 % (0.0-5.0); LYMPHOCYTES # (AUTO) 0.8 K/uL (0.60-3.4); LYMPHOCYTES % (AUTO) 4.9 (10.0-50.0); MEAN CORPUSCULAR HEMOGLOBIN 27.3 pg (27.0-31.0); MEAN CORPUSCULAR HGB CONC 30.4 (31.8-35.4); MEAN CORPUSCULAR VOLUME 89.8 fl (81.0-99.0); MONOCYTES # (AUTO) 0.3 K/uL (0.4-2.0); MONOCYTES % (AUTO) 1.8 (0-10); NEUTROPHILS # (AUTO) 14.8 K/ul (2.0-6.9); NEUTROPHILS % (AUTO) 91.9 % (42.2-75.2); PLATELET COUNT 281 10^3/uL (140-440); RDW COEFFICIENT OF VARIATION 17.4 % (11.6-14.8); RED BLOOD COUNT 3.92 10^6/ul (4.20-5.40); WHITE BLOOD COUNT 16.08 K/ul (4.6-10.2)
[2020-04-25] MEDS: SYNTHROID PO SCH (06:18)
[2020-04-25 06:25] LABS: ALBUMIN 3.93 g/dL (3.5-5.0); ALKALINE PHOSPHATASE 109.7 U/L (53-141); BILIRUBIN,TOTAL 0.61 mg/dL (0.2-1.3); BLOOD UREA NITROGEN 15.1 mg/dL (7-17); CALCIUM 9.7 mg/dL (8.4-10.2); CARBON DIOXIDE 35.2 mmol/L (22-30.0); CREATININE 0.76 mg/dL (0.60-1.30); GLUCOSE 153.1 mg/dL (74-106); POTASSIUM 4.38 mmol/L (3.5-5.1); SODIUM 136.4 mmol/L (134.5-145); TOTAL PROTEIN 7.8 g/dL (6.3-8.2)
[2020-04-25] MEDS: SYMBICORT 160-4.5 MCG INHALER IH SCH ×2 (08:17→20:40)
[2020-04-25] MEDS: LEXAPRO PO SCH (08:18)
[2020-04-25] MEDS: ATARAX PO SCH (08:18)
[2020-04-25] MEDS: LASIX TAB PO SCH (08:18)
[2020-04-25] MEDS: MICRO-K CAP PO SCH ×2 (08:18→20:39)
[2020-04-25] MEDS: LOVENOX SUBCUT SCH (08:19)
[2020-04-25] MEDS ORDERED: PROAIR HFA (SINGLE PATIENT USE) IH SCH (09:00)
[2020-04-25] MEDS ORDERED: ROCEPHIN 1 GM/50 ML D5W 1 GM/50 ML BAG IV SCH (09:00)
[2020-04-25] MEDS ORDERED: ATROVENT HFA INHALER (SINGLE PATIENT USE) IH SCH (09:00)
[2020-04-25] MEDS: DOXY-100 100 MG in SODIUM CHLORIDE 100 ML IV SCH ×2 (09:11→20:39)
--- NOTE | 2020-04-25 09:41 | DI ---
EXAM: Chest two views HISTORY: Pneumonia, follow-up FINDINGS: Compared to 04/24/2020. Prominent heart size is again noted. There is diffuse, chronic a ppearing interstitial accentuation. There is mild left base density probably improved since prior st udy. This could represent residual pneumonia. Probable trace left pleural effusion, decreased. No pneumothorax. Mild interstitial accentuation in the central lung zones IMPRESSION: 1. Improving left base density.
[2020-04-25] MEDS: ATROVENT HFA INHALER (PER PUFF-WITH SPACER) IH SCH ×3 (09:55→19:20)
[2020-04-25 11:11] LABS: ABG PH 7.43 (7.35-7.45)
[2020-04-25] MEDS: ROCEPHIN 1 GM/50 ML D5W 1 GM/50 ML BAG IV SCH (11:18)
[2020-04-25 12:49] LABS: BILIRUBIN,URINE Negative (NEGATIVE); CLARITY,URINE Clear (CLEAR); COLOR,URINE Yellow (YELLOW); GLUCOSE, URINE (UA) Negative (NEGATIVE); KETONES,URINE Negative (NEGATIVE); LEUKOCYTE ESTERASE ,URINE Negative (NEGATIVE); NITRITE,URINE Negative (NEGATIVE); PROTEIN,URINE 2+ (NEGATIVE); URINE, BLOOD Trace-intact (NEGATIVE); UROBILINOGEN,URINE 0.2 (0.2)
[2020-04-25 12:58] LABS: BACTERIA,URINE 1+ (NOT PRESENT); SQUAMOUS EPITHELIAL CELL,UR 0-2 (0-5); URINE RBC, MICROSCOPIC 0-2 (0-2)
--- NOTE | 2020-04-25 16:56 | PCM.PROG ---
Objective: Vitals: T=97.7 F, P=101, R=20, XF=070/66, SPO2=93 HEENT: ATNC, EOMI Neck: supple Lungs: better air movement, still wheezing CVS: RRR Abdomen: Obese, nontender, colostomy working well Extremities: No CCRP. 2+ edema bilaterally Neurological: no focal deficits Skin: Inframammary candidiasis Lab/Tests/Diagnostic Imaging: CBC WBC 16.1, H/H: 10.7/35.2 Na: 136, K: 4.4, CL: 97, C02: 35 ABG on 5L NC: pH: 7.43 P02:62, PC02: 61 [place] [address] Diagnostic Imaging Diagnostic Imaging Report : [id number] Signed Patient: LUISA CHAVARRIA CAcct:[id number] Record: [id number] : 1950Loc: [facility] ARoom/Bed: 1 Age/Sex: 70 / FADM Status: ADM INDate of Service: 04/25/20 Ordering Physician: JULIETA VILLEDA MD Procedure(s): CHEST, 2 VIEWS PA & LAT Report Number(s): [id number] Accession Number(s): [id number] cc: LIZA MOSS MD; JULIETA VILLEDA MD EXAM: Chest two views HISTORY: Pneumonia, follow-up FINDINGS: Compared to 04/24/2020. Prominent heart size is again noted. There is diffuse, chronic appearing interstitial accentuation. There is mild left base density probably improved since prior study. This could represent residual pneumonia. Probable trace left pleural effusion, decreased. No pneumothorax. Mild interstitial accentuation in the central lung zones IMPRESSION: 1. Improving left base density. Dictated By:LUCY LAW Signed By:LUCY LAW Dictated Date/Time: 04/25/20933 Transcribed Date/Time: 04/25/20933 Signed Date/Time: 04/25/20940 Assesmment: Slowly improving on current tx. Will CPM and re-asses in am. (1) Acute respiratory failure: Status: Acute Code(s): J96.00 - Acute respiratory failure, unspecified whether with hypoxia or hypercapnia SNOMED Code(s): 70007830 (2) Community acquired bacterial pneumonia: Status: Acute Code(s): J15.9 - Unspecified bacterial pneumonia SNOMED Code(s): 188946037
[2020-04-26] MEDS: ATROVENT HFA INHALER (PER PUFF-WITH SPACER) IH SCH ×4 (04:50→19:20)
[2020-04-26] MEDS: VENTOLIN HFA (PER PUFF-WITH SPACER) IH SCH ×4 (04:50→19:20)
[2020-04-26] MEDS: SOLU-MEDROL 40 MG IVP SCH ×3 (05:31→20:15)
[2020-04-26] MEDS: SYNTHROID PO SCH (05:36)
[2020-04-26] MEDS: LASIX TAB PO SCH (05:36)
[2020-04-26 07:04] LABS: ALANINE AMINOTRANSFERASE 18.5 U/L (0-35); ALBUMIN 3.86 g/dL (3.5-5.0); ALKALINE PHOSPHATASE 98.5 U/L (53-141); ASPARTATE AMINO TRANSFERASE 28.9 U/L (14-36); BILIRUBIN,TOTAL 0.4 mg/dL (0.2-1.3); BLOOD UREA NITROGEN 26.7 mg/dL (7-17); CALCIUM 9.73 mg/dL (8.4-10.2); CHLORIDE 97.7 mmol/L (98-107); CREATININE 0.98 mg/dL (0.60-1.30); GLUCOSE 148.2 mg/dL (74-106); POTASSIUM 4.32 mmol/L (3.5-5.1); SODIUM 139.1 mmol/L (134.5-145); TOTAL PROTEIN 7.69 g/dL (6.3-8.2)
[2020-04-26 07:06] LABS: BASOPHILS # (AUTO) 0.1 K/uL (0-0.2); BASOPHILS % (AUTO) 0.3 % (0.0-3.0); HEMATOCRIT 36.9 % (37.0-47.0); HEMOGLOBIN 11.1 g/dl (12.0-16.0); IMMATURE GRANULOCYTE # (AUTO) 0.5 (0.0-1.0); IMMATURE GRANULOCYTE % (AUTO) 2.5 % (0.0-5.0); LYMPHOCYTES # (AUTO) 1.4 K/uL (0.60-3.4); LYMPHOCYTES % (AUTO) 7.1 (10.0-50.0); MEAN CORPUSCULAR HEMOGLOBIN 27.3 pg (27.0-31.0); MEAN CORPUSCULAR HGB CONC 30.1 (31.8-35.4); MEAN CORPUSCULAR VOLUME 90.9 fl (81.0-99.0); NEUTROPHILS # (AUTO) 16.4 K/ul (2.0-6.9); NEUTROPHILS % (AUTO) 85.1 % (42.2-75.2); PLATELET COUNT 324 10^3/uL (140-440); RDW COEFFICIENT OF VARIATION 17.4 % (11.6-14.8); RED BLOOD COUNT 4.06 10^6/ul (4.20-5.40); WHITE BLOOD COUNT 19.27 K/ul (4.6-10.2)
[2020-04-26] MEDS: LOVENOX SUBCUT SCH (08:57)
[2020-04-26] MEDS: DOXY-100 100 MG in SODIUM CHLORIDE 100 ML IV SCH ×2 (08:57→20:15)
[2020-04-26] MEDS: LEXAPRO PO SCH (08:59)
[2020-04-26] MEDS: ATARAX PO SCH ×3 (08:59→20:14)
[2020-04-26] MEDS: MICRO-K CAP PO SCH ×2 (08:59→20:15)
--- NOTE | 2020-04-26 08:59 | PCM.PROG ---
Objective: S: "I feel better today" Much more alert, breathing improved, less labored O: Vitals: T=98.0 F, P=78, R=20, FX=245/68, SPO2=93 HEENT: ATNC, EOMI, PERRLA Neck: supple, pharynx clear Lungs: Better air exchange today, less congestion. Mild to moderate inframammary candidiasis CVS: RRR Abdomen: Soft, nontender Extremities: No CCRP, edema down to 1+ Neurological: No focal deficits Skin: Inframammary candidiasis Lab/Tests/Diagnostic Imaging: CBC: Wbc: 19.2, H/H: 11.1/36.9, NA: 139, K+:4.3, Cl:97, C02: 39, BUN: 26 Cr: 0.98 A/P: COPD exacerbation: Improving slowly. Increased WBC most likely related to steroids, will follow as she is improving clinically. Anticipate discharge in 24-48 hours. (1) Acute respiratory failure: Status: Acute Code(s): J96.00 - Acute respiratory failure, unspecified whether with hypoxia or hypercapnia SNOMED Code(s): 63993607 (2) Community acquired bacterial pneumonia: Status: Acute Code(s): J15.9 - Unspecified bacterial pneumonia SNOMED Code(s): 700583625
[2020-04-26] MEDS: NYSTOP POWDER TP PRN (09:00)
[2020-04-26] MEDS: SYMBICORT 160-4.5 MCG INHALER IH SCH ×2 (09:02→20:15)
[2020-04-26] MEDS: ROCEPHIN 1 GM/50 ML D5W 1 GM/50 ML BAG IV SCH (11:13)
[2020-04-26] MEDS: LOTRISONE 45 GM TP SCH ×2 (14:39→20:33)
[2020-04-27] MEDS: ATROVENT HFA INHALER (PER PUFF-WITH SPACER) IH SCH ×4 (04:55→20:00)
[2020-04-27] MEDS: VENTOLIN HFA (PER PUFF-WITH SPACER) IH SCH ×4 (04:55→20:00)
[2020-04-27] MEDS: LASIX TAB PO SCH (05:37)
[2020-04-27] MEDS: SOLU-MEDROL 40 MG IVP SCH ×3 (05:37→22:41)
[2020-04-27] MEDS: SYNTHROID PO SCH (05:37)
--- NOTE | 2020-04-27 07:48 | PCM.PROG ---
S: Patient improving, does not feel that she is yet at/near baseline. O: T: 97.7 P: 67 R: 21 BP: 144/71 Labs/CXR: ordered, pending A: HEENT: NCAT, PERRLA, EOMI Neck: normal appearance Lungs: lung sounds significantly diminished but likely at/near baseline, mild wheezing CVS: RRR Abdomen: Obese, NABS, nontender, colostomy working well Extremities: 2+ edema bilaterally Neurological: no focal deficits noted Skin: Inflamammary candidiasis noted, likely at/near her baseline P: Labs/CXR ordered Patient feels that another day of IV antibiotics/steroids would bring her back to near her baseline. She said she would arrange transportation home tomorrow at about 1000, assuming her condition warrants discharge. She accidentally discontinued her IV overnight, will have another started. Continue current treatment. Would consider discharge in the AM with PO abx/steroid pack to taper. Gomez Rosales MD
[2020-04-27] MEDS: NYSTOP POWDER TP PRN (09:03)
[2020-04-27] MEDS: SYMBICORT 160-4.5 MCG INHALER IH SCH ×2 (09:03→20:19)
[2020-04-27] MEDS: LOTRISONE 45 GM TP SCH ×2 (09:03→20:21)
[2020-04-27] MEDS: LOVENOX SUBCUT SCH (09:04)
[2020-04-27] MEDS: MICRO-K CAP PO SCH ×2 (09:04→17:01)
[2020-04-27] MEDS: LEXAPRO PO SCH (09:04)
--- NOTE | 2020-04-27 09:49 | DI ---
EXAM: CHEST FRONTAL VIEW HISTORY: Cough. COMPARISON: 04/25/2020 FINDINGS: Prominent heart size is stable. There is at least mild density over the left base which m ay represent atelectasis or pneumonia. Questionable trace left pleural effusion. Lungs are otherwis e grossly clear. IMPRESSION: Left base density may represent atelectasis or pneumonia.
[2020-04-27 09:52] LABS: HEMATOCRIT 34.3 % (37.0-47.0); HEMOGLOBIN 10.4 g/dl (12.0-16.0); MEAN CORPUSCULAR HEMOGLOBIN 27.4 pg (27.0-31.0); MEAN CORPUSCULAR HGB CONC 30.3 (31.8-35.4); MEAN CORPUSCULAR VOLUME 90.5 fl (81.0-99.0); PLATELET COUNT 317 10^3/uL (140-440); RDW COEFFICIENT OF VARIATION 17.5 % (11.6-14.8); RED BLOOD COUNT 3.79 10^6/ul (4.20-5.40); WHITE BLOOD COUNT 22.12 K/ul (4.6-10.2)
[2020-04-27 10:01] LABS: BLOOD UREA NITROGEN 31.4 mg/dL (7-17); CALCIUM 9.07 mg/dL (8.4-10.2); CHLORIDE 95.7 mmol/L (98-107); CREATININE 0.98 mg/dL (0.60-1.30); GLUCOSE 175.4 mg/dL (74-106); POTASSIUM 4.37 mmol/L (3.5-5.1); SODIUM 138.8 mmol/L (134.5-145)
[2020-04-27 10:20] LABS: ANISOCYTOSIS NOT PRESENT (NOT PRESENT)
[2020-04-27] MEDS: ROCEPHIN 1 GM/50 ML D5W 1 GM/50 ML BAG IV SCH (10:21)
[2020-04-27] MEDS: DOXY-100 100 MG in SODIUM CHLORIDE 100 ML IV SCH ×2 (11:06→20:18)
[2020-04-27] MEDS: ATARAX PO SCH (20:18)
[2020-04-27] MEDS: NYSTOP POWDER TP SCH (20:22)
[2020-04-28] MEDS: ATROVENT HFA INHALER (PER PUFF-WITH SPACER) IH SCH ×3 (04:50→14:34)
[2020-04-28] MEDS: VENTOLIN HFA (PER PUFF-WITH SPACER) IH SCH ×3 (04:50→14:34)
[2020-04-28] MEDS: SOLU-MEDROL 40 MG IVP SCH ×2 (05:46→14:21)
[2020-04-28] MEDS: SYNTHROID PO SCH (05:47)
[2020-04-28] MEDS: LASIX TAB PO SCH (05:47)
[2020-04-28] MEDS: DOXY-100 100 MG in SODIUM CHLORIDE 100 ML IV SCH (09:07)
[2020-04-28] MEDS: NYSTOP POWDER TP SCH (09:08)
[2020-04-28] MEDS: LEXAPRO PO SCH (09:08)
[2020-04-28] MEDS: LOTRISONE 45 GM TP SCH ×2 (09:08→09:43)
[2020-04-28] MEDS: SYMBICORT 160-4.5 MCG INHALER IH SCH (09:09)
[2020-04-28] MEDS: LOVENOX SUBCUT SCH (09:09)
[2020-04-28] MEDS: MICRO-K CAP PO SCH (09:27)
[2020-04-28] MEDS: ROCEPHIN 1 GM/50 ML D5W 1 GM/50 ML BAG IV SCH (10:58)
[2020-04-28 14:56] VITALS: BP 139/78; TEMP 99.3
--- NOTE | 2020-06-30 15:28 | PCM.DC ---
Final Diagnosis:Lt Basilar Pneumonia-Community Aquired Pneumoni Respiratory Failure - Resolved (1) Acute respiratory failure: Status: Acute Code(s): J96.00 - Acute respiratory failure, unspecified whether with hypoxia or hypercapnia SNOMED Code(s): 31801935 (2) Community acquired bacterial pneumonia: Status: Acute Code(s): J15.9 - Unspecified bacterial pneumonia SNOMED Code(s): 172151890 Medications at Discharge: Ambulatory Orders Medication Instructions Recorded albuterol sulfate 2.5 mg NEB Q4-6H PRN #180 ml 05/20/19 albuterol sulfate 90 mcg/actuation 1 - 2 puff INHALATION Q4-6H PRN #1 11/06/19 aerosol inhaler ih potassium chloride 10 mEq 10 meq PO BID #60 tab 11/15/19 tablet,extended release nystatin 100,000 unit/gram topical 1 applic TOPICAL TID PRN #60 gm 02/27/20 powder escitalopram oxalate 20 mg tablet 20 mg PO QDAY #90 tab 04/09/20 furosemide 20 mg tablet 20 mg PO QAM #90 tab 04/27/20 levothyroxine 75 mcg tablet 75 mcg PO DAILY #90 tab-cap 04/27/20 guaifenesin [Mucinex] 600 mg PO BID #14 tab 04/28/20 budesonide-formoterol HFA 160 2 puff INHALATION BID #10.2 gm 05/04/20 mcg-4.5 mcg/actuation aerosol inhaler meclizine 25 mg tablet 25 mg PO BID PRN #60 tab 06/01/20 lorazepam 0.5 mg tablet 0.5 mg PO QHS PRN #30 tab 06/15/20 cephalexin 500 mg capsule 500 mg PO BID 10 Days #20 cap 06/25/20
--- NOTE | 2020-06-30 15:37 | PCM.DC ---
Final Diagnosis: Community Acquired Pneumonia Respiratory Failure-Resolved Status at time of Discharge: Stable and improved (1) Acute respiratory failure: Status: Acute Code(s): J96.00 - Acute respiratory failure, unspecified whether with hypoxia or hypercapnia SNOMED Code(s): 72494705 (2) Community acquired bacterial pneumonia: Status: Acute Code(s): J15.9 - Unspecified bacterial pneumonia SNOMED Code(s): 862075632 Reason for Hospitalization: Presented to the emergency room prior to admission for evaluation and treatment for acute worsening shortness of breath. Hx of COPD and hypercarbic respiratory distress In the ER was treated with Respiratory therapy treatments, IV Steroids and antibiotics Patient made progressive improvement and indicated on day of discharge she was feeling much better and ready to go home Prognosis at Discharge: Fair Condition at Discharge: Stable and improved Medications at Discharge: Ambulatory Orders Medication Instructions Recorded albuterol sulfate 2.5 mg NEB Q4-6H PRN #180 ml 05/20/19 albuterol sulfate 90 mcg/actuation 1 - 2 puff INHALATION Q4-6H PRN #1 11/06/19 aerosol inhaler ih potassium chloride 10 mEq 10 meq PO BID #60 tab 11/15/19 tablet,extended release nystatin 100,000 unit/gram topical 1 applic TOPICAL TID PRN #60 gm 02/27/20 powder escitalopram oxalate 20 mg tablet 20 mg PO QDAY #90 tab 04/09/20 furosemide 20 mg tablet 20 mg PO QAM #90 tab 04/27/20 levothyroxine 75 mcg tablet 75 mcg PO DAILY #90 tab-cap 04/27/20 guaifenesin [Mucinex] 600 mg PO BID #14 tab 04/28/20 budesonide-formoterol HFA 160 2 puff INHALATION BID #10.2 gm 05/04/20 mcg-4.5 mcg/actuation aerosol inhaler meclizine 25 mg tablet 25 mg PO BID PRN #60 tab 06/01/20 lorazepam 0.5 mg tablet 0.5 mg PO QHS PRN #30 tab 06/15/20 cephalexin 500 mg capsule 500 mg PO BID 10 Days #20 cap 06/25/20 Lab/Diagnostics: see results on chart Follow-ups: Follow up PCP in 1 week
== END 2020-04-28 16:43 | disposition home or self-care (01) | DRG 195 ==
LOC: ED 17:04 → MEDSURG A 21:33
PROVIDERS: ADMIT Family Medicine Addiction Medicine; ATTEND Family Medicine
DX: J44.9 Chronic obstructive pulmonary disease, unspecified; R05 Cough; R53.1 Weakness; R06.02 Shortness of breath; J18.0 Bronchopneumonia, unspecified organism

== ENCOUNTER 2021-03-01 08:47 | Inpatient (IN) ==
[2021-03-01] MEDS ORDERED: DUONEB NEB ONE (08:56)
--- NOTE | 2021-03-01 09:02 | ED.PDOC ---
General ED Provider: Dr. RUBÉN CHING MD Chief Complaint: Shortness of Air Stated Complaint: shortness of breath Time Seen by Provider: 03/01/21 09:01 Mode of Arrival: Ambulance Information Source: Patient Primary Care Provider: EFREN CABALLERO PA-C Nursing and Triage Documentation Reviewed and Agree: Yes Does patient meet sepsis criteria?: No System Inflammatory Response Syndrome: Not Applicable Sepsis Protocol: For patient's 13 years and over: Temp is 96.8 and below OR 101 and greater Pulse >90 BPM Resp >20/minute Acutely Altered Mental Status Are patient's symptoms suggestive of a new infection, such as: -Pneumonia -Skin, Soft Tissue -Endocarditis -UTI -Bone, Joint Infection -Implantable Device -Acute Abdominal Infection -Wound Infection -Meningitis -Blood Stream Catheter Infection -Unknown Respiratory Complaint Exam Shortness of Air Complaint/Exam Onset/Duration: yesterday Symptoms Are: Worse Timing: Constant (progressively worsening) Initial Severity: Mild Current Severity: Moderate Character: Reports Dyspnea at rest and Orthopnea Aggravating: Reports Movement, Deep breaths and Recumbent position Alleviating: Reports Bronchodilators, Oxygen and Upright position Associated Signs and Symptoms: Reports Cough, Wheezing, Nasal congestion, Calf pain (chronic), Calf swelling (chronic with cellulitis), Edema (chronic to knee), Rapid breathing and Labored breathing; Denies Chest pain with cough, Fever, Chills, Diaphoresis or Dizziness Related History: Reports Similar episode and Obesity History of Healthcare-Acquired Pneumonia: No Pulmonary Embolism Risk Factors: Reports Smoking (<1/2 ppd) Cardiac Risk Factors: Reports Smoking, Elevated lipids, Hypertension and CHF Pseudomonas Risk Factors: Reports Chronic Lung Disease and Repeat Antibx in 3 months Tuberculosis Risk Factors: Reports Smoking Respiratory Distress: Moderate Stridor Present: No Tracheal Deviation: Yes Subcutaneous Emphysema: No Accessory Muscle Use: Yes Retractions: Supraclavicular, Intercostal, Diaphragmatic and Inadequate effort Prolonged Expiratory Phase: Yes Unable to Speak Full Sentences: Yes Fatigue: Yes Leg Swelling: Yes Review of Systems Review Of Systems Constitutional: Reports No symptoms Respiratory: Reports Short of air and Wheezing All Other Systems: Reviewed and Negative [facility] Medical History Acquired hypothyroidism Acute anemia Acute respiratory failure with hypoxia Benzodiazepine dependence Bilateral lower leg cellulitis BPV (benign positional vertigo) Bronchopneumonia, unspecified organism Chronic obstructive pulmonary disease Chronic obstructive pulmonary disease Chronic respiratory failure with hypoxia, on home oxygen therapy Colostomy present on admission (~05/16/19) Current every day nicotine vaping Decreased mobility and endurance Depression with anxiety Diverticular disease Edema of both lower extremities due to peripheral venous insufficiency Elevated white blood cell count, unspecified Encounter for tobacco use cessation counseling Fatigue Foul smelling vaginal discharge Generalized anxiety disorder Generalized edema Hematuria Hematuria History of epistaxis History of home oxygen therapy History of pneumonia Hospital discharge follow-up Hyperlipidemia Hypertension, essential, benign 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 Major depressive disorder, recurrent, unspecified Obesity Respiratory syncytial virus as the cause of diseases classified elsewhere Stasis dermatitis of both legs Tachycardia Tobacco abuse Tobacco abuse disorder Tobacco use Venous insufficiency (chronic) (peripheral) Vitamin D deficiency Social History Smoking and tobacco status: Current every day smoker Tobacco type: cigarettes Smoking cigarettes per day: 7 Tobacco: How many years used: 50 Second hand smoke exposure: Yes Smoking risk assessment performed: No Alcohol intake: never Substance use type: does not use Yanira/religious: JUDAISM Special yanira needs: No Agree to transfusion: Yes Adopted: Yes Caregiver/support person: Yes Household members: children Housing: house Lives independently: No (lives with family) Number of children: 4 Highest education level completed: some college, no degree Financial difficulty paying for basics: not applicable service: No Current occupational status: retired Current occupational exposures/hazards: No Pets and animals: Yes Leisure activites: other History of recent travel: No Sexually active: No Do you think of yourself as: straight/heterosexual Current gender identity: female Seatbelt use: never Helmet use: No (N/A) Drives intoxicated or rides with intoxicated package car driver: No Current diet type/program: regular Caffeine: Yes Water heater temperature set < 120 degrees: Yes Working smoke detector in home: Yes Fire extinguisher in home: Yes Carbon monoxide detector in home: Yes Firearms in home: No Surgical History History of section (Unknown) History of intestinal surgery History of tubal ligation Female Reproductive History Menstrual Hx Hysterectomy: No Hx Tubal Ligation: No Physical Exam Physical Exam Appearance: Reports Obese Ill-appearing: Moderate Pain Distress: None Eyes: Reports JM, EOMI and Conjunctiva clear ENT: Reports Nose normal Neck: Nonsupple (age-appropriate) Respiratory: Reports Airway patent Cardiovascular: Reports RRR GI/: Reports Soft, Nontender and Bowel sounds normal Musculoskeletal: Reports Normal strength and ROM intact Skin: Reports Warm, Dry and Normal color Neurological: Reports Sensation intact, Motor intact, Cranial nerves intact, Alert and Oriented Psychiatric: Reports Affect appropriate and Mood appropriate Interpretation EKG Interpretation Time of EKG #1: 09:29 Rate: Tachy (105) Rhythm: Other (Accelerated Junctional (105)) Ectopy: None [place]: NL ST Segment: Normal (appears WNL, but difficult to fully assess due to the presence of signficant artifact) Interpretation: significant artifact present Critical Care Note Critical Care Note Total Critical Care Time (mins): 0 Course Course Hematology/Chemistry: 03/02/21 05:05 03/02/21 05:05 Orders, Labs, Meds: Lab Review 03/01/21 03/01/21 03/01/21 09:05 09:15 09:15 WBC 20.05 H RBC 4.05 L Hgb 11.4 L Hct 36.7 L MCV 90.6 MCH 28.1 MCHC 31.1 L RDW Coeff of [place] 15.1 H Plt Count 204 Immature Gran % (Auto) 0.3 Neut % (Auto) 89.8 H Lymph % (Auto) 3.4 L [place] % (Auto) 5.3 Eos % (Auto) 1.0 Baso % (Auto) 0.2 Neut # (Auto) 18.0 H Lymph # (Auto) 0.7 [place] # (Auto) 1.1 Eos # (Auto) 0.2 Baso # (Auto) 0.1 Immature Gran # (Auto) 0.1 Puncture Site R rad Base Excess 9.1 H O2 Saturation 94.3 ABG pH 7.36 ABG pCO2 61.0 H ABG pO2 75.0 L ABG HCO3 34.5 H ABG Total CO2 36.4 H Cm Test Y Hemoglobin 0.9 Oxyhemoglobin 93.8 L Carboxyhemoglobin 2.6 H Total Hemoglobin 12.0 O2 Delivery Device Cannula Oxygen Liter Flow 4.00 Sodium 133.9 L Potassium 4.02 Chloride 92.0 L Carbon Dioxide 33.4 H Anion Gap 12.52 BUN 14.6 Creatinine 0.97 Estimated GFR (MDRD) 57.00 BUN/Creatinine Ratio 15.05 Glucose 158.2 H Lactic Acid Calcium 8.96 Magnesium 1.96 Total Bilirubin 1.09 AST 25.9 ALT 15.1 Alkaline Phosphatase 82.5 Total Creatine Kinase 118.2 CK-MB (CK-2) 2.730 H CK-MB (CK-2) % 2.3000 NT-Pro-B Natriuret Pep 411.000 H Total Protein 7.67 Albumin 4.16 Globulin 3.51 Albumin/Globulin Ratio 1.18 Procalcitonin TSH 1.350 Urine Color Urine Clarity Urine pH Ur Specific [place] Urine Protein Urine Glucose (UA) Urine Ketones Urine Blood Urine Nitrite Urine Bilirubin Urine Urobilinogen Ur Leukocyte Esterase Urine Microscopic RBC Urine Microscopic WBC Ur Squamous Epith Cells Hyaline Casts Urine Mucus Adenovirus (PCR) B. pertussis DNA (PCR) B.parapertussis DNA PCR C. pneumoniae DNA (PCR) Coronavirus OC43 (PCR) Coronavirus HKU1 (PCR) Coronavirus 229E (PCR) Coronavirus NL63 (PCR) Human Metapneumovir PCR Influenza Type A (PCR) Influenza B (RT-PCR) M. pneumoniae (PCR) Parainfluenza 1 (PCR) Parainfluenza 2 (PCR) Parainfluenza 3 (PCR) Parainfluenza 4 (PCR) RSV (PCR) Entero/Rhino (PCR) SARS-CoV-2 (PCR) 03/01/21 03/01/21 03/01/21 09:15 09:15 10:53 WBC RBC Hgb Hct MCV MCH MCHC RDW Coeff of [place] Plt Count Immature Gran % (Auto) Neut % (Auto) Lymph % (Auto) [place] % (Auto) Eos % (Auto) Baso % (Auto) Neut # (Auto) Lymph # (Auto) [place] # (Auto) Eos # (Auto) Baso # (Auto) Immature Gran # (Auto) Puncture Site Base Excess O2 Saturation ABG pH ABG pCO2 ABG pO2 ABG HCO3 ABG Total CO2 Cm Test Hemoglobin Oxyhemoglobin Carboxyhemoglobin Total Hemoglobin O2 Delivery Device Oxygen Liter Flow Sodium Potassium Chloride Carbon Dioxide Anion Gap BUN Creatinine Estimated GFR (MDRD) BUN/Creatinine Ratio Glucose Lactic Acid 1.94 Calcium Magnesium Total Bilirubin AST ALT Alkaline Phosphatase Total Creatine Kinase CK-MB (CK-2) CK-MB (CK-2) % NT-Pro-B Natriuret Pep Total Protein Albumin Globulin Albumin/Globulin Ratio Procalcitonin 2.10 H TSH Urine Color Urine Clarity Urine pH Ur Specific [place] Urine Protein Urine Glucose (UA) Urine Ketones Urine Blood Urine Nitrite Urine Bilirubin Urine Urobilinogen Ur Leukocyte Esterase Urine Microscopic RBC Urine Microscopic WBC Ur Squamous Epith Cells Hyaline Casts Urine Mucus Adenovirus (PCR) Not detected B. pertussis DNA (PCR) Not detected B.parapertussis DNA PCR Not detected C. pneumoniae DNA (PCR) Not detected Coronavirus OC43 (PCR) Not detected Coronavirus HKU1 (PCR) Not detected Coronavirus 229E (PCR) Not detected Coronavirus NL63 (PCR) Not detected Human Metapneumovir PCR Not detected Influenza Type A (PCR) Not detected Influenza B (RT-PCR) Not detected M. pneumoniae (PCR) Not detected Parainfluenza 1 (PCR) Not detected Parainfluenza 2 (PCR) Not detected Parainfluenza 3 (PCR) Not detected Parainfluenza 4 (PCR) Detected H RSV (PCR) Not detected Entero/Rhino (PCR) Not detected SARS-CoV-2 (PCR) Not detected 03/01/21 14:10 WBC RBC Hgb Hct MCV MCH MCHC RDW Coeff of [place] Plt Count Immature Gran % (Auto) Neut % (Auto) Lymph % (Auto) [place] % (Auto) Eos % (Auto) Baso % (Auto) Neut # (Auto) Lymph # (Auto) [place] # (Auto) Eos # (Auto) Baso # (Auto) Immature Gran # (Auto) Puncture Site Base Excess O2 Saturation ABG pH ABG pCO2 ABG pO2 ABG HCO3 ABG Total CO2 Cm Test Hemoglobin Oxyhemoglobin Carboxyhemoglobin Total Hemoglobin O2 Delivery Device Oxygen Liter Flow Sodium Potassium Chloride Carbon Dioxide Anion Gap BUN Creatinine Estimated GFR (MDRD) BUN/Creatinine Ratio Glucose Lactic Acid Calcium Magnesium Total Bilirubin AST ALT Alkaline Phosphatase Total Creatine Kinase CK-MB (CK-2) CK-MB (CK-2) % NT-Pro-B Natriuret Pep Total Protein Albumin Globulin Albumin/Globulin Ratio Procalcitonin TSH Urine Color Yellow Urine Clarity Clear Urine pH 7.0 Ur Specific [place] 1.015 Urine Protein Negative Urine Glucose (UA) Negative Urine Ketones Negative Urine Blood 1+ H Urine Nitrite Negative Urine Bilirubin Negative Urine Urobilinogen 0.2 Ur Leukocyte Esterase Negative Urine Microscopic RBC 5-10 Urine Microscopic WBC 2-5 Ur Squamous Epith Cells 5-10 Hyaline Casts 2-5 Urine Mucus 2+ Adenovirus (PCR) B. pertussis DNA (PCR) B.parapertussis DNA PCR C. pneumoniae DNA (PCR) Coronavirus OC43 (PCR) Coronavirus HKU1 (PCR) Coronavirus 229E (PCR) Coronavirus NL63 (PCR) Human Metapneumovir PCR Influenza Type A (PCR) Influenza B (RT-PCR) M. pneumoniae (PCR) Parainfluenza 1 (PCR) Parainfluenza 2 (PCR) Parainfluenza 3 (PCR) Parainfluenza 4 (PCR) RSV (PCR) Entero/Rhino (PCR) SARS-CoV-2 (PCR) Orders Category Date Time Status ABG DRAW REQUEST Stat CARDIO 03/01/21 09:02 Completed EKG-(ED ONLY) Stat CARDIO 03/01/21 08:59 Completed OXYGEN Routine CARDIO 03/01/21 15:58 Active INTAKE & OUTPUT Q8HR CARE 03/01/21 15:56 Active IP: INSERT SALINE LOCK ONCE CARE 03/01/21 15:56 Active NPO REMINDER: IMAGING ONCE CARE 03/01/21 12:12 Completed NPO REMINDER: IMAGING ONCE CARE 03/01/21 13:19 Completed VITAL SIGNS Q8HR CARE 03/01/21 15:56 Active ABG COOX Stat LAB 03/01/21 09:05 Completed BLOOD CULTURE (ED ONLY) Stat LAB 03/01/21 11:30 Received CBC W/ AUTO DIFF Stat LAB 03/01/21 09:15 Completed COMPREHENSIVE METABOLIC PANEL Stat LAB 03/01/21 09:15 Completed CREATINE KINASE Stat LAB 03/01/21 09:15 Completed LACTIC ACID Stat LAB 03/01/21 10:53 Completed MAGNESIUM Stat LAB 03/01/21 09:15 Completed MOLECULAR GROUP A STREP Stat LAB 03/01/21 10:40 Completed NT-PROBNP Stat LAB 03/01/21 09:15 Completed PROCALCITONIN Stat LAB 03/01/21 09:15 Completed RESPIRATORY PANEL 2.1 (PCR) Stat LAB 03/01/21 09:15 Completed THYROID STIMULATING HORMONE Stat LAB 03/01/21 09:15 Completed URINALYSIS C & S IF INDICATED Stat LAB 03/01/21 14:10 Completed Ceftriaxone/D5w 1 gm Premix [Rocephin 1 gm/50 ml D5w] MEDS 03/01/21 11:07 Discontinued 1 gm in 50 ml IV ONCE Diphenhydramine Inj [Benadryl] MEDS 03/01/21 11:04 Discontinued 50 mg IVP ONCE ONE Famotidine Inj [Pepcid] MEDS 03/01/21 11:04 Discontinued 20 mg IVP ONCE ONE Furosemide [Lasix] MEDS 03/01/21 11:04 Discontinued 40 mg IVP ONCE ONE Ipratropium/Albuterol Neb [Duoneb] MEDS 03/01/21 08:56 Discontinued 3 ml NEB ONCE ONE Methylprednisolone Sod Succ/Pf [Solu-Medrol 125 mg] MEDS 03/01/21 11:08 Discontinued 125 mg IVP ONCE STA RESUSCITATION STATUS Routine OTHERS 03/01/21 15:56 Completed CHEST, 1V AP ONLY Stat RADS 03/01/21 08:[address] ABDOMEN/PELVIS W CONTRAST Stat RADS 03/01/21 12:[address] CHEST W/CONTRAST Stat RADS 03/01/21 13:19 Completed Medications Generic Name Dose Route Start Last Admin Trade Name Freq PRN Reason Stop Dose Admin Albuterol Sulfate 2 puff 03/01/21 18:01 Albuterol Sulfate (Ventolin Hfa) 18 Gm 1 Puff With Spacer IH RTQID PRN Bronchodialation Budesonide/Formoterol Fumarate 2 puff 03/01/21 21:00 03/01/21 20:41 Budesonide/Formoterol Fumarate 160/4.5 Mcg Inhaler IH 2 puff BID IBIS Administration Cholecalciferol 1,000 unit 03/01/21 17:30 03/01/21 17:43 Cholecalciferol (Vitamin D3) 1,000 Unit (25 Mcg) Tablet PO 1,000 unit DAILY IBIS Administration Diphenhydramine HCl 25 mg 03/01/21 17:09 03/02/21 00:00 Diphenhydramine Hcl 25 Mg Capsule PO 25 mg Q6H PRN Administration Allergy Symptoms Fluoxetine HCl 40 mg 03/01/21 17:30 03/01/21 17:43 Fluoxetine Hcl 20 Mg Capsule PO 40 mg DAILY IBIS Administration Guaifenesin 600 mg 03/01/21 21:00 03/01/21 20:40 Guaifenesin 600 Mg Tablet.Er PO 600 mg BID IBIS Administration Hydroxyzine HCl 50 mg 03/01/21 21:00 03/01/21 20:40 Hydroxyzine Hcl 25 Mg Tablet PO 50 mg BEDTIME IBIS Administration Levofloxacin/Dextrose 750 mg in 150 mls @ 100 mls/hr 03/01/21 16:30 03/01/21 17:16 Levaquin 750 Mg/150 Ml D5w IV 03/05/21 10:29 100 mls/hr DAILY IBIS Administration CEFEPIME 2 GM/D5W 2 gm in 50 mls @ 100 mls/hr 03/01/21 19:00 03/02/21 03:49 Maxipime 2 Gm/50 Ml D5w IV 03/04/21 18:59 100 mls/hr Q8H IBIS Administration Levothyroxine Sodium 75 mcg 03/02/21 06:30 03/02/21 06:01 Levothyroxine Sodium 75 Mcg Tablet PO 75 mcg QDAC IBIS Administration Meclizine HCl 25 mg 03/01/21 17:09 Meclizine Hcl 25 Mg Tablet PO BID PRN Dizziness Metoprolol Succinate 25 mg 03/01/21 17:30 03/01/21 17:43 Metoprolol Succinate 25 Mg Tab.Er.24h PO 25 mg DAILY IBIS Administration Multivitamins 1 tab 03/02/21 09:00 Multivitamin 1 Tab PO DAILY IBIS Mupirocin 1 applic 03/01/21 21:00 03/01/21 20:40 Mupirocin 22 Gm Oint TP 03/04/21 20:59 Not Given BID IBIS Nystatin 1 applic 03/01/21 17:09 Nystatin 15 Gm Powder TP TID PRN Rash Potassium Chloride 10 meq 03/01/21 17:30 03/01/21 20:40 Potassium Chloride 10 Meq Capsule.Er PO 10 meq BID IBIS Administration Discontinued Medications Generic Name Dose Route Start Last Admin Trade Name Freq PRN Reason Stop Dose Admin Albuterol Sulfate 2 puff 03/01/21 17:09 Albuterol Sulfate (Ventolin Hfa) 18 Gm 1 Puff With Spacer IH Q4-6H PRN Bronchodialation Albuterol/Ipratropium 3 ml 03/01/21 08:56 03/01/21 09:18 Ipratropium/Albuterol Vial.Neb NEB 03/01/21 08:57 3 ml ONCE ONE Administration Diphenhydramine HCl 50 mg 03/01/21 11:04 03/01/21 11:45 Diphenhydramine Inj 50 Mg/Ml Vial IVP 03/01/21 11:05 50 mg ONCE ONE Administration Famotidine 20 mg 03/01/21 11:04 03/01/21 11:44 Famotidine Inj 20 Mg/2 Ml Vial IVP 03/01/21 11:05 20 mg ONCE ONE Administration Furosemide 40 mg 03/01/21 11:04 03/01/21 11:45 Furosemide Inj 40 Mg/4 Ml Vial IVP 03/01/21 11:05 40 mg ONCE ONE Administration CEFTRIAXONE/D5W 1 GM PREMIX 1 gm in 50 mls @ 75 mls/hr 03/01/21 11:07 03/01/21 11:47 Rocephin 1 Gm/50 Ml D5w IV 03/01/21 11:46 75 mls/hr ONCE ONE Administration Methylprednisolone Sodium Succinate 125 mg 03/01/21 11:08 03/01/21 11:43 Methylprednisolone Sod Succ/Pf 125 Mg/2 Ml Vial IVP 03/01/21 11:09 125 mg ONCE STA Administration Vital Signs: Temp Pulse Resp BP Pulse Ox 03/01/21 08:47 97.6 F 116 H 28 H 153/69 H 95 Discharge Plan Discharge Patient Disposition: ADMITTED INPATIENT Discharge Problem: Pneumonia ED Provider: RUBÉN CHING Condition: Good Physician Progress Note: []
[2021-03-01 09:12] LABS: ABG O2 HGB 93.8 % (95-100); ABG PH 7.36 (7.35-7.45); BEecf 9.1 (-2.0-3.0); COHb 2.6 (0.5-1.5); HCO3 34.5 (21-28); MetHb 0.9 (0-1.5); TCO2 36.4 (19-24); sO2 94.3 % (94-98)
[2021-03-01 09:20] LABS: BORDETELLA PARAPERTUSSIS (PCR) NOT DETECTED (NOT DETECT); BORDETELLA PERTUSSIS (PCR) NOT DETECTED (NOT DETECT); CHLAMYDIA PNEUMONIAE (PCR) NOT DETECTED (NOT DETECT); CORONAVIRUS 229E (PCR) NOT DETECTED (NOT DETECT); CORONAVIRUS HKU1 (PCR) NOT DETECTED (NOT DETECT); CORONAVIRUS NL63 (PCR) NOT DETECTED (NOT DETECT); CORONAVIRUS OC43 (PCR) NOT DETECTED (NOT DETECT); HUMAN METAPNEUMOVIRUS (PCR) NOT DETECTED (NOT DETECT); HUMAN RHINOVIRUS/ENTEROV (PCR) NOT DETECTED (NOT DETECT); INFLUENZA B (PCR) NOT DETECTED (NOT DETECT); MYCOPLASMA PNEUMONIAE (PCR) NOT DETECTED (NOT DETECT); PARAINFLUENZA VIRUS 1 (PCR) NOT DETECTED (NOT DETECT); PARAINFLUENZA VIRUS 2 (PCR) NOT DETECTED (NOT DETECT); PARAINFLUENZA VIRUS 3 (PCR) NOT DETECTED (NOT DETECT); RESPIRATORY SYNCYTIAL V (PCR) NOT DETECTED (NOT DETECT); SARS_COV_2 (PCR) NOT DETECTED (NOT DETECT)
[2021-03-01 09:21] LABS: BASOPHILS # (AUTO) 0.1 K/uL (0-0.2); BASOPHILS % (AUTO) 0.2 % (0.0-3.0); EOSINOPHILS # (AUTO) 0.2 K/ul (0.0-0.7); HEMATOCRIT 36.7 % (37.0-47.0); HEMOGLOBIN 11.4 g/dl (12.0-16.0); IMMATURE GRANULOCYTE # (AUTO) 0.1 (0.0-1.0); IMMATURE GRANULOCYTE % (AUTO) 0.3 % (0.0-5.0); LYMPHOCYTES # (AUTO) 0.7 K/uL (0.60-3.4); LYMPHOCYTES % (AUTO) 3.4 (10.0-50.0); MEAN CORPUSCULAR HEMOGLOBIN 28.1 pg (27.0-31.0); MEAN CORPUSCULAR HGB CONC 31.1 (31.8-35.4); MEAN CORPUSCULAR VOLUME 90.6 fl (81.0-99.0); MONOCYTES # (AUTO) 1.1 K/uL (0.4-2.0); MONOCYTES % (AUTO) 5.3 (0-10); NEUTROPHILS % (AUTO) 89.8 % (42.2-75.2); PLATELET COUNT 204 10^3/uL (140-440); RDW COEFFICIENT OF VARIATION 15.1 % (11.6-14.8); RED BLOOD COUNT 4.05 10^6/ul (4.20-5.40); WHITE BLOOD COUNT 20.05 K/ul (4.6-10.2)
[2021-03-01 09:31] LABS: ALANINE AMINOTRANSFERASE 15.1 U/L (0-35); ALBUMIN 4.16 g/dL (3.5-5.0); ALKALINE PHOSPHATASE 82.5 U/L (53-141); ASPARTATE AMINO TRANSFERASE 25.9 U/L (14-36); BILIRUBIN,TOTAL 1.09 mg/dL (0.2-1.3); BLOOD UREA NITROGEN 14.6 mg/dL (7-17); CALCIUM 8.96 mg/dL (8.4-10.2); CARBON DIOXIDE 33.4 mmol/L (22-30.0); CREATINE KINASE 118.2 U/L (30-135); CREATININE 0.97 mg/dL (0.60-1.30); GLUCOSE 158.2 mg/dL (74-106); MAGNESIUM 1.96 mg/dL (1.6-2.3); POTASSIUM 4.02 mmol/L (3.5-5.1); SODIUM 133.9 mmol/L (134.5-145); TOTAL PROTEIN 7.67 g/dL (6.3-8.2)
--- NOTE | 2021-03-01 09:42 | DI ---
EXAM: Single frontal view of the chest HISTORY: Shortness of breath. COMPARISON: Chest x-ray 05/29/[address] chest 07/12/2020 FINDINGS: Cardiomediastinal silhouette is unremarkable and unchanged. There is no pneumothorax. The re is bilateral lower lobe ground-glass. This has worsened since 05/29/2020. The osseous structures are unchanged. IMPRESSION: Worsening bilateral lower lobe ground-glass opacities suggestive of worsening edema vers us infection.
[2021-03-01 09:46] LABS: CREATINE KINASE MB 2.73 ng/ml (0.0-2.38)
[2021-03-01 10:01] LABS: THYROID STIMULATING HORMONE 1.35 uIU/L (0.465-4.68)
[2021-03-01 10:08] LABS: ADENOVIRUS (PCR) NOT DETECTED (NOT DETECT); PARAINFLUENZA VIRUS 4 (PCR) DETECTED (NOT DETECT)
[2021-03-01] MEDS ORDERED: SOLU-MEDROL 125 MG 125 MG in SODIUM CHLORIDE 50 ML IV ONE (11:04)
[2021-03-01] MEDS ORDERED: PEPCID IVP ONE (11:04)
[2021-03-01] MEDS ORDERED: BENADRYL IVP ONE (11:04)
[2021-03-01] MEDS ORDERED: LASIX IVP ONE (11:04)
[2021-03-01] MEDS ORDERED: ROCEPHIN 1 GM/50 ML D5W 1 GM/50 ML BAG IV ONE (11:07)
[2021-03-01] MEDS ORDERED: SOLU-MEDROL 125 MG IVP STA (11:08)
[2021-03-01 14:31] LABS: BILIRUBIN,URINE Negative (NEGATIVE); CLARITY,URINE Clear (CLEAR); COLOR,URINE Yellow (YELLOW); GLUCOSE, URINE (UA) Negative (NEGATIVE); KETONES,URINE Negative (NEGATIVE); LEUKOCYTE ESTERASE ,URINE Negative (NEGATIVE); NITRITE,URINE Negative (NEGATIVE); PROTEIN,URINE Negative (NEGATIVE); URINE, BLOOD 1+ (NEGATIVE); UROBILINOGEN,URINE 0.2 (0.2)
--- NOTE | 2021-03-01 14:38 | CT ---
EXAM: CT chest with contrast. HISTORY: Shortness of breath. COMPARISON: 07/12/2020. TECHNIQUE: Multiple axial images of the chest were obtained following intravenous administration of 100 mL Visipaque 320, low osmolar. Images were reformatted in the sagittal and coronal planes. FINDINGS: Calcified mediastinal and hilar lymph nodes present. Heart mildly enlarged. Atherosclerotic calcifications in the aorta and coronary arteries. No perica rdial effusion. No aortic dissection. No large pulmonary arterial filling defect. There is extensive right lower lobe with more diffuse ground glass opacities and nodular densities in the right lower lobe. There is consolidation in the right middle lobe with air bronchograms which h as increased from prior chest CT. There is stable lingular consolidation. A few small foci of conso lidation noted in the left lower lobe. Small nodular densities throughout remainder of the lungs. No pleural effusion or the pneumothorax. Limited images of the upper abdomen demonstrate several ill-defined low density splenic lesions which have been present previously, including abdominal CT dated 01/09/2017. Refer same day abdominal CT report for details. There is no acute osseous abnormality. IMPRESSION: Extensive bilateral pneumonia, greatest in the right lower lobe. Follow up within 3 months recommend ed for reassessment. All CT scans are performed using dose optimization techniques as appropriate to the performed exam an d include at least one of the following: Automated exposure control, adjustment of the mA and/or kV according t o size, and the use of iterative reconstruction technique.
[2021-03-01 14:40] LABS: MUCUS,URINE 2+ (NOT PRESENT)
--- NOTE | 2021-03-01 14:42 | CT ---
EXAM: CT abdomen pelvis with contrast HISTORY: Perirectal versus pilonidal cyst/abscess COMPARISON: CT abdomen pelvis 08/07/2017 TECHNIQUE: Serial axial images of the abdomen pelvis were performed after 100 mL is of Visipaque IV contrast was administered. These were obtained from the lung bases through the inferior pelvis. FINDINGS: The lung bases demonstrate dependent left lower lobe consolidation. There is mild scatter ed ground-glass and extensive consolidation in the right lower lobe and right middle lobe.. The liver is unremarkable. The gallbladder is distended. Adrenal glands are unremarkable. The kidn eys are normal. Spleen is unremarkable. Pancreas is unremarkable. The stomach is mildly distended. There is a right lateral abdominal wall defect with hernia containing bowel. This is consistent with a partial colectomy and colostomy. The distal colon in the pelvis is unremarkable with few divertic lotus. Urinary bladder is distended. The os is unremarkable. There is no free air, free fluid or lym phadenopathy. There is no visualized abscess or fluid collection with minimal skin thickening near t he rectum. The osseous structures demonstrate mild degenerative disease. IMPRESSION: 1. There is no visualized abscess in the abdomen, pelvis or peroneal region. There is mild skin thi ckening in the region of the rectum that may represent a component of mild inflammation. 2. Lower lobe ground-glass and consolidations concerning for pneumonia. 3. Right colostomy with herniation of bowel and fat at the ostomy site. All CT scans are performed using dose optimization techniques as appropriate to the performed exam an d include at least one of the following: Automated exposure control, adjustment of the mA and/or kV according t o size, and the use of iterative reconstruction technique.
[2021-03-01 16:52] VITALS: BMI 42.4
[2021-03-01] MEDS ORDERED: BENADRYL PO PRN (17:09)
[2021-03-01] MEDS ORDERED: VENTOLIN HFA (PER PUFF-WITH SPACER) IH PRN ×2 (17:09→18:01)
[2021-03-01] MEDS ORDERED: NYSTOP POWDER TP PRN (17:09)
[2021-03-01] MEDS ORDERED: ANTIVERT PO PRN (17:09)
[2021-03-01] MEDS: LEVAQUIN 750 MG/150 ML D5W 750 MG/150 ML BAG IV SCH (17:16)
--- NOTE | 2021-03-01 17:28 | PCM ---
Chief Complaint Chief Complaint: Cough shortness of breath pneumonia History of Present Illness History of Present Illness: 70-year-old female presented to the emergency room on March 01 at 9:00 in the morning. Patient is a primary patient of [facility]. The patient vitals show temperature 97.6, pulse 116, respiratory rate 28, blood pressure 153/69 and pulse ox of 95.She presented with shortness of breath starting yesterday worsening in the last 24 hours. Symptoms are constant and worsening. Initial severity was mild and has progressed to moderate. She reports dyspnea at rest and orthopnea. Deep breaths and recumbent position aggr avate the symptoms and they are improved by bronchodilators oxygen and being upright position. The patient has cough, wheezing, nasal congestion, chronic calf pain, chronic calf pain with a chronic cellulitic/stasis dermatitis/edematous process. Patient has rapid breathing labored breathing and denied chest pain with cough denied fever, denied chills, denied diaphoresis. Similar history of pneumonia. Patient has smoked less than half pack per day for a long time. Cardiac risk factors include smoking, elevated lipids, hypertension and CHF. Patient has chronic lung disease and antibiotics in the last 3 months. She has moderate respiratory distress, they listed tracheal deviation as yes on the respiratory complaint. Retractions include supraclavicular, intercostal, diaphragmatic and an inadequate effort for breathing. She has a prolonged respiratory phase and difficulty speaking sentences with fatigue as well. Patient has known history of hypothyroidism, anemia, acute respiratory failure with hypoxia, benzodiazepine dependence, bilateral lower leg cellulitis, benign positional vertigo, bronchopneumonia, COPD, chronic respiratory failure with hypoxia, colostomy, nicotine vaping use, decreased mobility and endurance, depression with anxiety, diverticular disease, edema bilateral lower extremities, chronic elevated white blood cell count unspecified, fatigue, recurrent hematuria, home oxygen therapy, hypertension, hyperlipidemia, long-term use of controlled medications, vitamin D deficiency, venous insufficiency. Current everyday smoker vaping more than 50 years. Surg ical history reviewed and noncontributory. EKG was completed and she had an accelerated junctional rhythm at 105. Tachycardia noted. No ectopy. Mildred was normal. EKG ST appear within normal limits she had artifact present. Labs showed white blood cell count 20.05 which is longstanding. Hemoglobin 11.4, hematocrit of 36.7 and platelets of 204. RDW 15.1 MCV normal at 90.6. Neutrophils 89.8% with an elevated neutrophil count and a lymphocytopenia. The patient had a ABG with pH of 7.368 PCO2 of 61 and HCO3 of 34.5 and a total CO2 of 36.4. Sodium 133.9 chloride listed as 92 carbon dioxide 33.4, BUN 14.6, creatinine 0.97, glucose 158.2, calcium 8.96, magnesium 1.96, AST 25.9, ALT 15.1, NT proBNP of 411, albumin of 4.16 and a TSH of 1.35 which is normal. The patient had a PCR test which showed positive parainfluenza 4 and negative COVID- 19. ABG interpretation of chronic compensated primary respiratory acidosis with metabolic alkalosis. The patient was given a DuoNeb in the ER. ER physician reached out to me around 2:00 today and noted the patient has been having the symptoms since yesterday. Worsening dyspnea. There was no D-dimer collected. Labs as noted above she just finished a Levaquin course for bilateral lower extremity cellulitis. Her procalcitonin was elevated at 2.10 with a lactic acid of 1.94. She has a history of Pseudomonas listed. He noted as they sat her down to get her into the emergency room that she had some purulent drainage from the rectal region. She has had an ostomy and does not have a open anus. These regions were CAT scan to include the chest and abdomen pelvis. Chest x-ray showed worsening bilateral lobe groundglass opacities edema versus infection noted at [address] results returned IMPRESSION: Extensive bilateral pneumonia, greatest in the right lower lobe. Follow up within 3 months recommended for reassessment. Abd IMPRESSION:1. There is no visualized abscess in the abdomen, pelvis or peroneal region. There is mild skin thickening in the region of the rectum that may represent a component of mild inflammation. 2. Lower lobe ground-glass and consolidations concerning for pneumonia. 3. Right colostomy with herniation of bowel and fat at the ostomy site. I will cover patient for Pseudomonas but not necessarily MRSA. She has no known history of colonization, no received IV antibiotics during the hospitalization in the last 3 months, no recent influenza-like illness, no presence of empyema, no end-stage renal disease, no living in crowded conditions, no incarceration or injection drug use. I will cover for the Pseudomonas because she has had this historically. I will thus cover with Levaquin 750 mg IV daily x5 days as well as cefepime 2 g every 8 hours. I will get blood cultures x2, sputum culture x1 labs in the morning CBC CMP. I will add a D-dimer to now. We will continue using albuterol and ipratropium through shared canister. Differential includes PE based on sudden onset elevated blood pressure. I did not have the EKG to review for S1Q3T3 phenomenon. Lovenox 40mg subcut daily encouraged for DVT prophy. REVIEW OF SYMPTOMS: (Positives bolded) General: weight loss,fever, chills, night sweats, fatigue,appetite loss HEENT: blurry vision, eye pain, eye discharge, dry eyes, decreased vision,sore throattinnitus, bloody nose, hearing loss, sinus pain/pressure, ear pain/pressure. Respiratory: shortness of breath,cough,hemoptysis, wheezing, pleurisy,BRIGGS Cardiovascular:chest pain, PND, palpitation, edema,orthopnea,syncope, swelling of extremities Gastro:Nausea, vomiting, diarrhea, hematemesis, abdominal pain, constipation Genito:hematuria, dysuria, glycosuria, hesitancy, frequency, incontinence [place]:Arthralgia, myalgia, muscle weakness, joint swelling, NSAID use Skin:rash, pruritis, sores, nail changes, skin thickening, change in wart/mole, itching, rash, new lesions,pruritus, nail changes Neuro: Migraine, numbness, ataxia, tremor, vertigo,weakness, memory loss, Irritability, dizziness Endocrine:excessive thirst, polyuria, cold intolerance, heat intolerance, goiter Psychiatric: depression, anxiety, anti-depressants,alcohol abuse, drug abuse, insomnia,change in sleep pattern and mood changes Heme/lymph:easy bruising, bleeding gums, blood clots, swollen glands, lymphedema, Allergic/immune:allergic rhinitis, hay fever, asthma, hives Vital Signs - 24 hr 03/01/21 08:47 03/01/21 16:42 03/01/21 17:28 Temperature 97.6 F 98.0 F 98.0 F Pulse Rate 116 H 104 H 104 H Respiratory Rate 28 H 28 H 28 H Blood Pressure 153/69 H 153/69 H O2 Sat by Pulse Oximetry 95 98 98 Constitutional:Appearance-Respiratory distress mild to moderate, sitting in bedside chair, cannot lay flat. Using NC, pursed lip breathing. Accessory muscle use for neck and chest. Orientation- Oriented x 3, alert Build and Nutrition-[morbidly obese]General- Patient is pleasant and cooperative with the interview and exam. Hard of hearing is present. Integumentary: General-No rashes, ulcers or lesions above waist. Unable to evaluate buttock as patient would not stand, did not want support/assistance. Bilateral LE with chronic lymphedematous changes, chronic stasis, stasis dermatitis, hemosiderin staining. Nails thickened, long and e/o alf, chronic insufficiency.. DP pulse 1+, PT 1+. Palpation- Normal skin mois ture/turgor wrists/hands/arms. thickened/coarse, dry skin beyond knees bilaterally. Skin is warm to touch, appropriate. Capillary refill is normal bilateral Upper and lower extremity. Head/Neck:Head- normocephalic and atraumatic.Neck- without visible/palpable lumps or pulsations.Palpation- No bony tenderness about head/neck along frontal, occipital, temporal, parietal, mastoid, jawline, zygoma, orbit or any other location. NO temporal artery tenderness. No TMJ tenderness. Neck Supple.Thyroid-No thyromegaly, no nodules Eye:Bilaterally PERRLA, EOMI. No discharge. Upper and lower eyelids are normal. Sclera/conjunctiva normal without discharge. Cornea is normal and clear. Lens is normal. Eyeball appears normal. No ciliary flushing, no conjunctival injection. ENMT:Pinna- normal without tenderness or erythema.External auditory canal Left-normal without erythema or discharge, no excessive cerumen.External auditory canal Right-normal without erythema or discharge, no excessive cerumen.TM left- Whitaker/pearly, normal light reflex and anatomyTM Right- Whitaker/pearly, normal light reflex and anatomyHearing Assessment-normal to conversational speech.Nose and sinus- No sinus tenderness along frontal/maxillary region. External appearance normal and midline.Nares- bilateral quiet airflow, no discharge.Nasal mucosa- No bleeding noted and no ulcerations observed. [place], moist. Turbinates non boggy.Lips-normal color, moist without cracks/lesionsOral Cavity/Palate- hard/soft palate intact without lesions, oral mucosa pink and moist. Dentition assessed [] and discussed appropriate oral care. Tongue normal midline.Oropharynx- no pharyngeal erythema, Uvula midline. No post nasal drip. No exudate.Salivary glands- Non tender to palpation CHEST/LUNG:Inspection- symmetric chest wall no pectus deformity. increased effort, Distant heart sounds. Wheezes, crackles and rhonchi throughout. E/O chronic lung related disease. Accessory muscles utilzed. Palpation- nontender sternum, ribline. No abnormal pulsations.Auscultation- Breath sounds coarse throughout tracheal sounds, bronchial sounds overlying sternum, Bronchovessicular sounds between scapulae posteriorly, vessicular breath sounds heard throughout periphery. Adventitious sounds- wheezes, rales, rhonchi.throughout. Coarse. I:E 1:2. Pursed lip. Wet sounds. No egophany. CARDIOVASCULAR:Carotid artery-normal, no bruits or abnormal pulsations. Jugular vein- no pulsations.Palpation/Percussion- Normal PMI, no palpable thrill Auscultation- Regular rate and rhythm. No murmur noted in sitting, supine positions.Extremities- no digital clubbing, cyanosis, edema, increased warmth. ABDOMEN:Inspection- normal and no visible pulsations. Normal contour. Auscultation- Bowel sounds normal, no abdominal bruits.Palpation/Percussion- soft, non-tender, no rebound tenderness, no rigidity (guarding), no jar tenderness, no masses.Ostomy site RLQ abdomen. [place] in place. Peripheral Vascular:Upper extremityLeft- Normal temperature with pink nailbeds and no ulcerations.Upper extremity Right-Normal temperature with pink nailbeds and no ulcerations.Lower extremity- coarse, thickened skiin, chronic changes present. Chronic 2+ edema, pitting edema, thickened skin, scaley. Edema- 2+ pitting edema. Musculoskeletal:Generalized-No generalized swelling or edema of upper extremities, Lower extremities as noted above. Limited ROM of bilateral shoulders/hips. Limited ambuiation. normal high climber, normal elbow extension/flexion. Limited ROM of knees and ankles as well due to chronic changes in skin. Upper extremity- Symmetrical posture. Forward sitting. No visible deformity. Reduced Shoulder ROM. Reduced shoulder abduction/foward flexion. NO tenderness overlying shoulder, lateral/medial epicondyle. Jack Machine Operator 5/5 and strength 5/5 bilateral UE. Elbow palpated, no tenderness overlying olecranon. Normal supination, pronation to active/passive ROM and to resisted rotation. Lower extremity- Hip: Not tender to palpation, no pain. Chronic bilateral LE s welling, edema and erythema of surrounding tissue/. Reduced hip ROM. Reduced knee extension/flexion. Ankle:ROM reduced. Bilateral LE tender to palpation along foot to knee. Neurological:General- Moves all 4 extremities symmetrically. Symmetrical face and body posture.Cranial nerves- individually evaluated II-XII and intact. PERRLA, Normal EOMI, visual/special senses appear intact, Face is symmetrical and normal sensation/movement, normal tongue, normal strength/posture of neck musculature. Neuropsych:Oriented- Person, place, time. (AAOx3),Mood/affect- normal and congruent. Able to articulate well.Speech-Normal speech, normal rate, normal tone, normal use of language, volume and coherence.Thought content- normal with ability to perform basic computations and apply abstract thought/reason. Associations- intact, no SI/HI, no hallucinations, delusions, obsessions. Judgment/insight- Appropriate.Memory-Recall intact, remote and recent memory intact.Knowledge- Age appropriate fund of knowledge, concentration and attention span normal. Lymphatic: Head/Neck- normal size and non tender to palpation. Allergies Allergies Allergy/AdvReac Type Severity Reaction Status Date / Time No Known Allergies Allergy Unknown Uncoded 03/01/21 08:58 [facility] Medical History (Updated 03/03/21 @ 10:30 by LUIS MIGUEL FONG MD) Anemia Bilateral lower leg cellulitis BPV (benign positional vertigo) CHF (congestive heart failure) Chronic obstructive pulmonary disease Chronic respiratory failure with hypoxia, on home oxygen therapy Chronic venous stasis dermatitis of both lower extremities Colostomy present on admission (~05/16/19) COVID-19 Decreased mobility and endurance Diverticular disease Edema of both lower extremities due to peripheral venous insufficiency Elevated white blood cell count, unspecified Generalized anxiety disorder History of epistaxis Hyperlipidemia Hypertension, essential, benign Hypothyroidism Major depressive disorder, recurrent, unspecified Morbid obesity with BMI of 40.0-44.9, adult On home oxygen therapy Stasis dermatitis of both legs Tobacco abuse disorder Tobacco use Venous insufficiency (chronic) (peripheral) Vitamin D deficiency Surgical History (Updated 03/02/21 @ 11:39 by HEATHER MAHONEY, RN) History of section (Unknown) History of intestinal surgery History of tubal ligation Social History Smoking and tobacco status: Current every day smoker Tobacco type: cigarettes Smoking cigarettes per day: 7 Tobacco: How many years used: 50 Second hand smoke exposure: Yes Smoking risk assessment performed: No Alcohol intake: never Substance use type: does not use Yanira/buddhism: ROMAN CATHOLIC Special yanira needs: No Agree to transfusion: Yes Adopted: Yes Caregiver/support person: Yes Household members: children Housing: house Lives independently: No (lives with family) Number of children: 4 Highest education level completed: some college, no degree Financial difficulty paying for basics: not applicable service: No Current occupational status: retired Current occupational exposures/hazards: No Pets and animals: Yes Leisure activites: other History of recent travel: No Sexually active: No Do you think of yourself as: straight/heterosexual Current gender identity: female Seatbelt use: never Helmet use: No (N/A) Drives intoxicated or rides with intoxicated taxi driver: No Current diet type/program: regular Caffeine: Yes Water heater temperature set < 120 degrees: Yes Working smoke detector in home: Yes Fire extinguisher in home: Yes Carbon monoxide detector in home: Yes Firearms in home: No Medications Medications: Medications Generic Name Dose Route Start Last Admin Trade Name Freq PRN Reason Stop Dose Admin Albuterol Sulfate 2 puff 03/01/21 17:09 Albuterol Sulfate (Ventolin Hfa) 18 Gm 1 Puff With Spacer IH Q4-6H PRN Bronchodialation Budesonide/Formoterol Fumarate 2 puff 03/01/21 21:00 Budesonide/Formoterol Fumarate 160/4.5 Mcg Inhaler IH BID IBIS Cholecalciferol 1,000 unit 03/01/21 17:30 Cholecalciferol (Vitamin D3) 1,000 Unit (25 Mcg) Tablet PO DAILY IBIS Diphenhydramine HCl 25 mg 03/01/21 17:09 Diphenhydramine Hcl 25 Mg Capsule PO Q6H PRN Allergy Symptoms Fluoxetine HCl 40 mg 03/01/21 17:30 Fluoxetine Hcl 20 Mg Capsule PO DAILY IBIS Guaifenesin 600 mg 03/01/21 21:00 Guaifenesin 600 Mg Tablet.Er PO BID IBIS Hydroxyzine HCl 50 mg 03/01/21 21:00 Hydroxyzine Hcl 25 Mg Tablet PO BEDTIME IBIS Levofloxacin/Dextrose 750 mg in 150 mls @ 100 mls/hr 03/01/21 16:30 03/01/21 17:16 Levaquin 750 Mg/150 Ml D5w IV 03/05/21 10:29 100 mls/hr DAILY IBIS Administration CEFTRIAXONE/D5W 1 GM PREMIX 1 gm in 50 mls @ 75 mls/hr 03/02/21 09:00 Rocephin 1 Gm/50 Ml D5w IV 03/05/21 08:59 DAILY IIBS Levothyroxine Sodium 75 mcg 03/02/21 06:30 Levothyroxine Sodium 75 Mcg Tablet PO QDAC IBIS Meclizine HCl 25 mg 03/01/21 17:09 Meclizine Hcl 25 Mg Tablet PO BID PRN Dizziness Metoprolol Succinate 25 mg 03/01/21 17:30 Metoprolol Succinate 25 Mg Tab.Er.24h PO DAILY IBIS Multivitamins 1 tab 03/02/21 09:00 Multivitamin 1 Tab PO DAILY IBIS Mupirocin 1 applic 03/01/21 21:00 Mupirocin 22 Gm Oint TP 03/04/21 20:59 BID IBIS Nystatin 1 applic 03/01/21 17:09 Nystatin 15 Gm Powder TP TID PRN Rash Potassium Chloride 10 meq 03/01/21 17:30 Potassium Chloride 10 Meq Capsule.Er PO BID IBIS Body Composition Height: 5 ft 2 in Weight: 232 lb Body Mass Index (BMI): 42.4 Vital Signs Temperature: 98.0 F Pulse Rate: 104 Respiratory Rate: 28 Blood Pressure: 153/69 O2 Sat by Pulse Oximetry: 98 Lab/Tests/Diagnostic Imaging Lab/Tests/Diagnostic Imaging: Lab Review 03/01/21 03/01/21 03/01/21 09:05 09:15 09:15 WBC 20.05 H RBC 4.05 L Hgb 11.4 L Hct 36.7 L MCV 90.6 MCH 28.1 MCHC 31.1 L RDW Coeff of [place] 15.1 H Plt Count 204 Immature Gran % (Auto) 0.3 Neut % (Auto) 89.8 H Lymph % (Auto) 3.4 L Stanley % (Auto) 5.3 Eos % (Auto) 1.0 Baso % (Auto) 0.2 Neut # (Auto) 18.0 H Lymph # (Auto) 0.7 Stanley # (Auto) 1.1 Eos # (Auto) 0.2 Baso # (Auto) 0.1 Immature Gran # (Auto) 0.1 Puncture Site R rad Base Excess 9.1 H O2 Saturation 94.3 ABG pH 7.36 ABG pCO2 61.0 H ABG pO2 75.0 L ABG HCO3 34.5 H ABG Total CO2 36.4 H Cm Test Y Hemoglobin 0.9 Oxyhemoglobin 93.8 L Carboxyhemoglobin 2.6 H Total Hemoglobin 12.0 O2 Delivery Device Cannula Oxygen Liter Flow 4.00 Sodium 133.9 L Potassium 4.02 Chloride 92.0 L Carbon Dioxide 33.4 H Anion Gap 12.52 BUN 14.6 Creatinine 0.97 Estimated GFR (MDRD) 57.00 BUN/Creatinine Ratio 15.05 Glucose 158.2 H Lactic Acid Calcium 8.96 Magnesium 1.96 Total Bilirubin 1.09 AST 25.9 ALT 15.1 Alkaline Phosphatase 82.5 Total Creatine Kinase 118.2 CK-MB (CK-2) 2.730 H CK-MB (CK-2) % 2.3000 NT-Pro-B Natriuret Pep 411.000 H Total Protein 7.67 Albumin 4.16 Globulin 3.51 Albumin/Globulin Ratio 1.18 Procalcitonin TSH 1.350 Urine Color Urine Clarity Urine pH Ur Specific [place] Urine Protein Urine Glucose (UA) Urine Ketones Urine Blood Urine Nitrite Urine Bilirubin Urine Urobilinogen Ur Leukocyte Esterase Urine Microscopic RBC Urine Microscopic WBC Ur Squamous Epith Cells Hyaline Casts Urine Mucus Adenovirus (PCR) B. pertussis DNA (PCR) B.parapertussis DNA PCR C. pneumoniae DNA (PCR) Coronavirus OC43 (PCR) Coronavirus HKU1 (PCR) Coronavirus 229E (PCR) Coronavirus NL63 (PCR) Human Metapneumovir PCR Influenza Type A (PCR) Influenza B (RT-PCR) M. pneumoniae (PCR) Parainfluenza 1 (PCR) Parainfluenza 2 (PCR) Parainfluenza 3 (PCR) Parainfluenza 4 (PCR) RSV (PCR) Entero/Rhino (PCR) SARS-CoV-2 (PCR) 03/01/21 03/01/21 03/01/21 09:15 09:15 10:53 WBC RBC Hgb Hct MCV MCH MCHC RDW Coeff of [place] Plt Count Immature Gran % (Auto) Neut % (Auto) Lymph % (Auto) Stanley % (Auto) Eos % (Auto) Baso % (Auto) Neut # (Auto) Lymph # (Auto) Stanley # (Auto) Eos # (Auto) Baso # (Auto) Immature Gran # (Auto) Puncture Site Base Excess O2 Saturation ABG pH ABG pCO2 ABG pO2 ABG HCO3 ABG Total CO2 Cm Test Hemoglobin Oxyhemoglobin Carboxyhemoglobin Total Hemoglobin O2 Delivery Device Oxygen Liter Flow Sodium Potassium Chloride Carbon Dioxide Anion Gap BUN Creatinine Estimated GFR (MDRD) BUN/Creatinine Ratio Glucose Lactic Acid 1.94 Calcium Magnesium Total Bilirubin AST ALT Alkaline Phosphatase Total Creatine Kinase CK-MB (CK-2) CK-MB (CK-2) % NT-Pro-B Natriuret Pep Total Protein Albumin Globulin Albumin/Globulin Ratio Procalcitonin 2.10 H TSH Urine Color Urine Clarity Urine pH Ur Specific [place] Urine Protein Urine Glucose (UA) Urine Ketones Urine Blood Urine Nitrite Urine Bilirubin Urine Urobilinogen Ur Leukocyte Esterase Urine Microscopic RBC Urine Microscopic WBC Ur Squamous Epith Cells Hyaline Casts Urine Mucus Adenovirus (PCR) Not detected B. pertussis DNA (PCR) Not detected B.parapertussis DNA PCR Not detected C. pneumoniae DNA (PCR) Not detected Coronavirus OC43 (PCR) Not detected Coronavirus HKU1 (PCR) Not detected Coronavirus 229E (PCR) Not detected Coronavirus NL63 (PCR) Not detected Human Metapneumovir PCR Not detected Influenza Type A (PCR) Not detected Influenza B (RT-PCR) Not detected M. pneumoniae (PCR) Not detected Parainfluenza 1 (PCR) Not detected Parainfluenza 2 (PCR) Not detected Parainfluenza 3 (PCR) Not detected Parainfluenza 4 (PCR) Detected H RSV (PCR) Not detected Entero/Rhino (PCR) Not detected SARS-CoV-2 (PCR) Not detected 03/01/21 14:10 WBC RBC Hgb Hct MCV MCH MCHC RDW Coeff of [place] Plt Count Immature Gran % (Auto) Neut % (Auto) Lymph % (Auto) Stanley % (Auto) Eos % (Auto) Baso % (Auto) Neut # (Auto) Lymph # (Auto) Stanley # (Auto) Eos # (Auto) Baso # (Auto) Immature Gran # (Auto) Puncture Site Base Excess O2 Saturation ABG pH ABG pCO2 ABG pO2 ABG HCO3 ABG Total CO2 Cm Test Hemoglobin Oxyhemoglobin Carboxyhemoglobin Total Hemoglobin O2 Delivery Device Oxygen Liter Flow Sodium Potassium Chloride Carbon Dioxide Anion Gap BUN Creatinine Estimated GFR (MDRD) BUN/Creatinine Ratio Glucose Lactic Acid Calcium Magnesium Total Bilirubin AST ALT Alkaline Phosphatase Total Creatine Kinase CK-MB (CK-2) CK-MB (CK-2) % NT-Pro-B Natriuret Pep Total Protein Albumin Globulin Albumin/Globulin Ratio Procalcitonin TSH Urine Color Yellow Urine Clarity Clear Urine pH 7.0 Ur Specific [place] 1.015 Urine Protein Negative Urine Glucose (UA) Negative Urine Ketones Negative Urine Blood 1+ H Urine Nitrite Negative Urine Bilirubin Negative Urine Urobilinogen 0.2 Ur Leukocyte Esterase Negative Urine Microscopic RBC 5-10 Urine Microscopic WBC 2-5 Ur Squamous Epith Cells 5-10 Hyaline Casts 2-5 Urine Mucus 2+ Adenovirus (PCR) B. pertussis DNA (PCR) B.parapertussis DNA PCR C. pneumoniae DNA (PCR) Coronavirus OC43 (PCR) Coronavirus HKU1 (PCR) Coronavirus 229E (PCR) Coronavirus NL63 (PCR) Human Metapneumovir PCR Influenza Type A (PCR) Influenza B (RT-PCR) M. pneumoniae (PCR) Parainfluenza 1 (PCR) Parainfluenza 2 (PCR) Parainfluenza 3 (PCR) Parainfluenza 4 (PCR) RSV (PCR) Entero/Rhino (PCR) SARS-CoV-2 (PCR) Orders Category Date Time Status [facility] ADMISSION 03/01/21 16:51 Active ABG DRAW REQUEST Stat CARDIO 03/01/21 09:02 Completed EKG-(ED ONLY) Stat CARDIO 03/01/21 08:59 Completed METERED DOSE INHALATION Routine CARDIO 03/01/21 17:12 Ordered OXYGEN Routine CARDIO 03/01/21 15:58 Active INTAKE & OUTPUT Q8HR CARE 03/01/21 15:56 Active IP: INSERT SALINE LOCK ONCE CARE 03/01/21 15:56 Active NPO REMINDER: IMAGING ONCE CARE 03/01/21 12:12 Completed NPO REMINDER: IMAGING ONCE CARE 03/01/21 13:19 Completed TELEMETRY MONITORING TELE CARE 03/01/21 16:53 Active VITAL SIGNS Q8HR CARE 03/01/21 15:56 Active VTE PREVENTION .SCD On AM/Off PM CARE 03/01/21 16:01 Active VTE PREVENTION .PRETTY 24 Hours CARE 03/01/21 16:01 Active CARDIAC DIET DIETARY 03/01/21 Dinner Ordered ABG COOX Stat LAB 03/01/21 09:05 Completed BASIC METABOLIC PANEL DAILY@0600 LAB 03/02/21 06:00 Ordered BASIC METABOLIC PANEL DAILY@0600 LAB 03/03/21 06:00 Ordered BLOOD CULTURE (ED ONLY) Stat LAB 03/01/21 11:30 Received CBC W/ AUTO DIFF DAILY@0600 LAB 03/02/21 06:00 Ordered CBC W/ AUTO DIFF DAILY@0600 LAB 03/03/21 06:00 Ordered CBC W/ AUTO DIFF Stat LAB 03/01/21 09:15 Completed COMPREHENSIVE METABOLIC PANEL Stat LAB 03/01/21 09:15 Completed CREATINE KINASE Stat LAB 03/01/21 09:15 Completed LACTIC ACID Stat LAB 03/01/21 10:53 Completed MAGNESIUM Stat LAB 03/01/21 09:15 Completed MOLECULAR GROUP A STREP Stat LAB 03/01/21 10:40 Completed NT-PROBNP Stat LAB 03/01/21 09:15 Completed PROCALCITONIN Stat LAB 03/01/21 09:15 Completed RESPIRATORY PANEL 2.1 (PCR) Stat LAB 03/01/21 09:15 Completed THYROID STIMULATING HORMONE Stat LAB 03/01/21 09:15 Completed URINALYSIS C & S IF INDICATED Stat LAB 03/01/21 14:10 Completed Albuterol Inhaler(with Spacer) [Ventolin Hfa (Per Puff- MEDS 03/01/21 17:09 Active with Spacer)] 2 puff IH Q4-6H PRN Budesonide/Formoterol Fumarate [Symbicort 160-4.5 Mcg MEDS 03/01/21 21:00 Active Inhaler] 2 puff IH BID Ceftriaxone/D5w 1 gm Premix [Rocephin 1 gm/50 ml D5w] MEDS 03/02/21 09:00 Active 1 gm in 50 ml IV DAILY Ceftriaxone/D5w 1 gm Premix [Rocephin 1 gm/50 ml D5w] MEDS 03/01/21 11:07 Discontinued 1 gm in 50 ml IV ONCE Cholecalciferol (Vitamin D3) [Vitamin D] MEDS 03/01/21 17:30 Active 1,000 unit PO DAILY Diphenhydramine HCl [Benadryl] MEDS 03/01/21 17:09 Active 25 mg PO Q6H PRN Diphenhydramine Inj [Benadryl] MEDS 03/01/21 11:04 Discontinued 50 mg IVP ONCE ONE Famotidine Inj [Pepcid] MEDS 03/01/21 11:04 Discontinued 20 mg IVP ONCE ONE Fluoxetine HCl [Prozac] MEDS 03/01/21 17:30 Active 40 mg PO DAILY Furosemide [Lasix] MEDS 03/01/21 11:04 Discontinued 40 mg IVP ONCE ONE Guaifenesin [Mucinex] MEDS 03/01/21 21:00 Active 600 mg PO BID Hydroxyzine HCl [Atarax] MEDS 03/01/21 21:00 Active 50 mg PO BEDTIME Ipratropium/Albuterol Neb [Duoneb] MEDS 03/01/21 08:56 Discontinued 3 ml NEB ONCE ONE Levofloxacin/D5w [Levaquin 750 mg/150 ml D5w] MEDS 03/01/21 16:30 Active 750 mg in 150 ml IV DAILY Levothyroxine Sodium [Synthroid] MEDS 03/02/21 06:30 Active 75 mcg PO QDAC Meclizine HCl [Antivert] MEDS 03/01/21 17:09 Active 25 mg PO BID PRN Methylprednisolone Sod Succ/Pf [Solu-Medrol 125 mg] MEDS 03/01/21 11:08 Discontinued 125 mg IVP ONCE STA Metoprolol Succinate [Toprol Xl] MEDS 03/01/21 17:30 Active 25 mg PO DAILY Multivitamin [Multivitamin Tablet] MEDS 03/02/21 09:00 Active 1 tab PO DAILY Mupirocin [Bactroban] MEDS 03/01/21 21:00 Active 1 applic TP BID Nystatin [Nystop Powder] MEDS 03/01/21 17:09 Active 1 applic TP TID PRN Potassium Chloride [Micro-K Cap] MEDS 03/01/21 17:30 Active 10 meq PO BID RESUSCITATION STATUS Routine OTHERS 03/01/21 15:56 Completed RESUSCITATION STATUS Routine OTHERS 03/01/21 16:52 Ordered CHEST, 1V AP ONLY Stat RADS 03/01/21 08:[address] ABDOMEN/PELVIS W CONTRAST Stat RADS 03/01/21 12:[address] CHEST W/CONTRAST Stat RADS 03/01/21 13:19 Completed Medications Generic Name Dose Route Start Last Admin Trade Name Freq PRN Reason Stop Dose Admin Albuterol Sulfate 2 puff 03/01/21 17:09 Albuterol Sulfate (Ventolin Hfa) 18 Gm 1 Puff With Spacer IH Q4-6H PRN Bronchodialation Budesonide/Formoterol Fumarate 2 puff 03/01/21 21:00 Budesonide/Formoterol Fumarate 160/4.5 Mcg Inhaler IH BID IBIS Cholecalciferol 1,000 unit 03/01/21 17:30 Cholecalciferol (Vitamin D3) 1,000 Unit (25 Mcg) Tablet PO DAILY IBIS Diphenhydramine HCl 25 mg 03/01/21 17:09 Diphenhydramine Hcl 25 Mg Capsule PO Q6H PRN Allergy Symptoms Fluoxetine HCl 40 mg 03/01/21 17:30 Fluoxetine Hcl 20 Mg Capsule PO DAILY IBIS Guaifenesin 600 mg 03/01/21 21:00 Guaifenesin 600 Mg Tablet.Er PO BID IBIS Hydroxyzine HCl 50 mg 03/01/21 21:00 Hydroxyzine Hcl 25 Mg Tablet PO BEDTIME IBIS Levofloxacin/Dextrose 750 mg in 150 mls @ 100 mls/hr 03/01/21 16:30 03/01/21 17:16 Levaquin 750 Mg/150 Ml D5w IV 03/05/21 10:29 100 mls/hr DAILY IBIS Administration CEFTRIAXONE/D5W 1 GM PREMIX 1 gm in 50 mls @ 75 mls/hr 03/02/21 09:00 Rocephin 1 Gm/50 Ml D5w IV 03/05/21 08:59 DAILY IBIS Levothyroxine Sodium 75 mcg 03/02/21 06:30 Levothyroxine Sodium 75 Mcg Tablet PO QDAC IBIS Meclizine HCl 25 mg 03/01/21 17:09 Meclizine Hcl 25 Mg Tablet PO BID PRN Dizziness Metoprolol Succinate 25 mg 03/01/21 17:30 Metoprolol Succinate 25 Mg Tab.Er.24h PO DAILY [facility] Multivitamins 1 tab 03/02/21 09:00 Multivitamin 1 Tab PO DAILY IBIS Mupirocin 1 applic 03/01/21 21:00 Mupirocin 22 Gm Oint TP 03/04/21 20:59 BID IBIS Nystatin 1 applic 03/01/21 17:09 Nystatin 15 Gm Powder TP TID PRN Rash Potassium Chloride 10 meq 03/01/21 17:30 Potassium Chloride 10 Meq Capsule.Er PO BID IBIS Discontinued Medications Generic Name Dose Route Start Last Admin Trade Name Freq PRN Reason Stop Dose Admin Albuterol/Ipratropium 3 ml 03/01/21 08:56 03/01/21 09:18 Ipratropium/Albuterol Vial.Neb NEB 03/01/21 08:57 3 ml ONCE ONE Administration Diphenhydramine HCl 50 mg 03/01/21 11:04 03/01/21 11:45 Diphenhydramine Inj 50 Mg/Ml Vial IVP 03/01/21 11:05 50 mg ONCE ONE Administration Famotidine 20 mg 03/01/21 11:04 03/01/21 11:44 Famotidine Inj 20 Mg/2 Ml Vial IVP 03/01/21 11:05 20 mg ONCE ONE Administration Furosemide 40 mg 03/01/21 11:04 03/01/21 11:45 Furosemide Inj 40 Mg/4 Ml Vial IVP 03/01/21 11:05 40 mg ONCE ONE Administration CEFTRIAXONE/D5W 1 GM PREMIX 1 gm in 50 mls @ 75 mls/hr 03/01/21 11:07 03/01/21 11:47 Rocephin 1 Gm/50 Ml D5w IV 03/01/21 11:46 75 mls/hr ONCE ONE Administration Methylprednisolone Sodium Succinate 125 mg 03/01/21 11:08 03/01/21 11:43 Methylprednisolone Sod Succ/Pf 125 Mg/2 Ml Vial IVP 03/01/21 11:09 125 mg ONCE STA Administration Assessment (1) Pneumonia: Status: Acute Code(s): J18.9 - Pneumonia, unspecified organism SNOMED Code(s): 467843178 (2) Pseudomonas infection: Status: Acute Code(s): A49.8 - Other bacterial infections of unspecified site SNOMED Code(s): 75375656 (3) Boil of buttock: Status: Acute Code(s): L02.32 - Furuncle of buttock SNOMED Code(s): 94856104 (4) Leukocytosis: Status: Acute Code(s): D72.829 - Elevated white blood cell count, unspecified SNOMED Code(s): 499808829 (5) SIRS (systemic inflammatory response syndrome): Status: Acute Code(s): R65.10 - Systemic inflammatory response syndrome (SIRS) of non-infectious origin without acute organ dysfunction SNOMED Code(s): 907508307 (6) Body mass index (BMI) of 40.1 to 44.9 in adult: Status: Acute Code(s): Z68.41 - Body mass index [BMI] 40.0-44.9, adult SNOMED Code(s): 173645940 (7) Abscess of buttock: Status: Acute Code(s): L02.31 - Cutaneous abscess of buttock SNOMED Code(s): 13338180 (8) Anemia: Status: Acute Code(s): D64.9 - Anemia, unspecified SNOMED Code(s): 309715286 (9) Hyponatremia: Status: Acute Code(s): E87.1 - Hypo-osmolality and hyponatremia SNOMED Code(s): 62851824 (10) Hyperglycemia: Status: Acute Code(s): R73.9 - Hyperglycemia, unspecified SNOMED Code(s): 13047576 (11) Elevated d-dimer: Status: Acute Code(s): R79.89 - Other specified abnormal findings of blood chemistry SNOMED Code(s): 724703201 (12) Acquired hypothyroidism: Status: Acute Code(s): E03.9 - Hypothyroidism, unspecified SNOMED Code(s): 931772248 (13) Venous stasis: Status: Acute Code(s): I87.8 - Other specified disorders of veins SNOMED Code(s): 60972136 (14) Hyperlipidemia: Status: Acute Code(s): E78.5 - Hyperlipidemia, unspecified SNOMED Code(s): 77793044 Qualifiers: Hyperlipidemia type: unspecified Qualified Code(s): E78.5 - Hyperlipidemia, unspecified (15) Hypertension, essential, benign: Status: Acute Code(s): I10 - Essential (primary) hypertension SNOMED Code(s): 3099961 (16) Hypothyroidism: Status: Acute Code(s): E03.9 - Hypothyroidism, unspecified SNOMED Code(s): 19377706 Qualifiers: Hypothyroidism type: unspecified Qualified Code(s): E03.9 - Hypothyroidism, unspecified (17) Electronic cigarette use: Status: Acute Code(s): Z78.9 - Other specified health status SNOMED Code(s): 628808760 Plan Plan: Pneumonia/SIRS/Elevated Procalcitonin/History of COPD: The patient presented to the emergency room today with evidence of pneumonia and worsening respiratory status. The patient has a port score of at least 81 with risk class III 0.9 to 3% mortality. Outpatient or inpatient treatment is reasonable. I do not believe she needs the SCU but I do believe based on her COPD CHF and buttock a bscess that she will require IV antibiotics. I have reviewed her labs and she has a chronic leukocytosis in the 20-22 range. Chronic anemia in the 8.3-11.4 range. Normal platelets. ABG looked okay. pH was 7.36. She did have some hypoxia with PO2 of 75 and CO2 was at 61. Patient has numerous medical problems which increases the concern for her pneumonia. Mild hyponatremia is present renal function is okay. Her lactic acid was negative at 1.94 but her procalcitonin was positive at 2.10. She had a history of Pseudomonas infection of the skin and because of this I will cover her with Levaquin and cefepime. She has not had any IV antibiotics she has not reported any history of staph infection. We will not need to cover at this time for MRSA pneumonia. Imaging was reviewed and chest x-ray showed worsening bilateral lower lobe groundglass opacities suggesting of edema and/or infection. She was given some Lasix and some fluid diuresis occurred. She was started on antibiotics as requested. She did receive a CT of the abdomen and pelvis with contrast. No abscess noted. Pneumonia noted. Chest CT extensive bilateral pneumonia greatest in the right lower lobe. Initial vital signs are reassuring. I will start patient on Levaquin 750 mg IV daily x5 days and we will use cefepime 2 g every 8 hours. This should cover for Pseudomonas as well as possibly for the buttock abscess. Chronic leukocytosis etiology unknown. Chronic major medical problems reviewed with patient and nursing. Patient does have numerous medical problems that increase likelihood of complications. Covid negative. - Admit to inpatient status - Telemetery - am cbc/cmp - F/U with sputum and blood cultures. - Colostomy care - DASH diet encouraged. - OOB, incentive spirometry - Albuterol q 4 hours prn - Lovenox 40 mg subcutaneously daily for DVT Prophy -Continue budesonide Po medication. Continue Mucinex twice daily Buttock boil: Await culture. We will cover with Levaquin and cefepime for now. History of Pseudomonas. This should cover pseudomonal infection. Imaging did not show any concerning process. -Continue to monitor Antibiotics as listed Venous stasis/stasis dermatitis/lymphedema: Just finished a round of Levaquin. I have continued another round of Levaquin. We will continue to follow-up with patient. At present legs are chronically edematous, chronically thickened scales and she has evidence of chronic lymphedema. I do not suspect any secondary infection. We will add some Bactroban to the legs. We will try to ke ep the legs elevated. History of Pseudomonas skin infection. Cefepime added. So far no area to culture. We will continue to monitor. Leukocytosis: I believe a peripheral smear and possibly flow cytometry may be beneficial to the patient as an outpatient. Etiology unknown. This may be a result of chronic venous stasis and chronic skin changes of the lower extremities. - Monitor CBC CHF: Limit fluids via IV. We will monitor fluids and daily weights. Hypokalemia: K+cl- 10meq BID w/meals. Stable at present monitor. BMI 42.4: Discussed the federal guidelines suggest a healthy goal BMI of 18.5- 24.9 for people 18 65 and 23-30 for people age 65 and older. Overweight is considered BMI 25-30, Obesity 30-40 and Morbid obesity is defined as >100 lb overweight or BMI >40. With a BMI above goal, it is recommended to utilize a diet/exercise program to get back into the appropriate range. Consider referral to transit operator. For BMI >40 consider referral to bariatrics. If not already monitoring intake. I would recommend at least to keep a food diary. Document everything that is consumed into a food diary. Studies have shown that patients can lose up to 2x the weight by keeping track of foods. Offered handout on weight loss techniques. Apps that may be of benefit include [employer], Lose it. Regular exercise encouraged. Start with walking 5-10 minutes at a pace that is difficult to carry a conversation. - F/U as outpatient Anemia: Normocytic anemia. We will continue to monitor. - Daily CBC - Monitor for worsening. Hyponatremia: Patient has a mild hyponatremia. We will monitor with daily CMP. - CMP daily. Hyperglycemia: Sugars <126 fasting <200 random. MOnitor w/ CMP. Goal <150. - Monitor CMP daily. Depression/anxeity: Continue home medications to include Prozac 40 mg daily. Continue Atarax at bedtime. HLD: Patient is not currently on a statin. We will address this as an outpatient. Blood pressure is controlled. Home medications reviewed with patient today. She is on metoprolol succinate 25 mg daily we will continue this during hospital stay. Monitor blood pressure. Patient goal of less than 150/90 at this time as she has no history of diabetes. Essential HTN: Acquired hypothyroidism: Most recent TSH 1.350 normal. Goal TSH for patient 1- 3. We will continue home medications levothyroxine 75 mcg daily. Diet: Cardiac 1800kcl DASH DVT Prophy: 40mg subcut lovenox. Nicotine dependence/Vaping: Tobacco Cessation discussed today for 2 minutes. We reviewed lifestyle choices and discussed quitting. Ready to quit status discussed. The risks and hazards of continued tobacco abuse were discussed with the patient today and total tobacco cessation as recommended. It was clearly and unambiguously explained that continued tobacco usage will adversely affect overall morbidity and mortality of the patient. Patient was informed that tobacco use can lead to numerous cancers, worsening of cardiovascular and pulmonary systems and that lung damage is often permanent and irreversible. I advised the patient to inform me if any further assistance is requested, as we can offer counseling services, nicotine replacement inhaled, patch, lozenge, gum, or prescription medications to include Chantix or Wellbutrin for assistance. I will reassess the interest in tobacco cessation at the next and all subsequent visit. - Nicotine d/w patient - Patches d/w patient. Decline Disposition: Expected length of stay 3 to 4 days. Patient has bilateral pneumonia and buttock abscess. We are waiting on cultures of sputum as well as of purulent drainage from the buttock. I will check a D-dimer and if positive will consider CT PE protocol chest. The patient is expected to stay as noted above 3 to 4 days. We will continue to work on weight. We will diurese with Jackie. We will focus on overall care. Patient has numerous medical problems that need to be addressed as an outpatient. 70 minutes spent rounding with patient today, d/w ER, review labs, imaging, telemetry, review w/ nursing. Not including documentation time.
[2021-03-01] MEDS: TOPROL XL PO SCH (17:43)
[2021-03-01] MEDS: MICRO-K CAP PO SCH ×2 (17:43→20:40)
[2021-03-01] MEDS: VITAMIN D PO SCH (17:43)
[2021-03-01] MEDS: PROZAC PO SCH (17:43)
[2021-03-01] MEDS: MAXIPIME 2 GM/50 ML D5W 2 GM/50 ML BAG IV SCH (20:39)
[2021-03-01] MEDS: BACTROBAN TP SCH (20:40)
[2021-03-01] MEDS: ATARAX PO SCH (20:40)
[2021-03-01] MEDS: MUCINEX PO SCH (20:40)
[2021-03-01] MEDS: SYMBICORT 160-4.5 MCG INHALER IH SCH (20:41)
[2021-03-02] MEDS: MAXIPIME 2 GM/50 ML D5W 2 GM/50 ML BAG IV SCH ×3 (03:49→20:58)
[2021-03-02 05:08] LABS: HEMATOCRIT 33.4 % (37.0-47.0); HEMOGLOBIN 10.6 g/dl (12.0-16.0); MEAN CORPUSCULAR HEMOGLOBIN 28.6 pg (27.0-31.0); MEAN CORPUSCULAR HGB CONC 31.7 (31.8-35.4); PLATELET COUNT 181 10^3/uL (140-440); RDW COEFFICIENT OF VARIATION 14.8 % (11.6-14.8); RED BLOOD COUNT 3.71 10^6/ul (4.20-5.40); WHITE BLOOD COUNT 20.24 K/ul (4.6-10.2)
[2021-03-02 05:33] LABS: ALBUMIN 3.73 g/dL (3.5-5.0); ALKALINE PHOSPHATASE 51.2 U/L (53-141); ASPARTATE AMINO TRANSFERASE 34.7 U/L (14-36); BILIRUBIN,TOTAL 0.92 mg/dL (0.2-1.3); BLOOD UREA NITROGEN 25.6 mg/dL (7-17); CALCIUM 9.09 mg/dL (8.4-10.2); CARBON DIOXIDE 33.2 mmol/L (22-30.0); CHLORIDE 91.4 mmol/L (98-107); CREATININE 0.98 mg/dL (0.60-1.30); GLUCOSE 108.1 mg/dL (74-106); POTASSIUM 4.54 mmol/L (3.5-5.1); TOTAL PROTEIN 7.19 g/dL (6.3-8.2)
[2021-03-02 05:34] LABS: ALANINE AMINOTRANSFERASE 14.2 U/L (0-35)
[2021-03-02 05:35] LABS: SODIUM 131.8 mmol/L (134.5-145)
[2021-03-02 05:40] LABS: ANISOCYTOSIS NOT PRESENT (NOT PRESENT)
[2021-03-02] MEDS: SYNTHROID PO SCH (06:01)
--- NOTE | 2021-03-02 06:49 | PCM.PROG ---
Date Seen by Provider: 03/02/21 Time Seen by Provider: 06:45 Subjective: 70-year-old female hospital day #2 with suspected CHF exacerbation as well as pneumonia. Patient has chronic poor health body mass index 42.4 and evidence of chronic venous stasis with stasis dermatitis of bilateral lower extremities. I was able to obtain EKG from the patient ER stay. Ventricular rate 105, quite a bit of artifact. [place] appears normal QRS appears normal. P waves are hidden within the artifact. I do not appreciate Q waves. There is no evidence of ST changes that are acute. The patient is currently on Levaquin and cefepime to cover for history of Pseudomonas and current pneumonia. This is now antibiotic day #2 hospital day #2. Overnight vitals showed afebrile status 97.6 to 99.6. Pulse rate has ranged from 100-1 16 yesterday and is 83 this morning. Blood pressures were elevated 133/69 141/75 and was 124/66 this morning. Patient has a respiratory rate of 20 and she was 28 in the emergency room. O2 saturations 95 to 98% on 4 L nasal cannula. Telemetry junctional rhythm QRS interval 0.06. Labs this morning continue to show a markedly elevated white blood cell count of 20.24, hemoglobin of 10.6 and a platelet count of 181. She has a predominant neutrophilia and a lymphocytosis. Mild hyponatremia with sodium of 131.8, potassium normal 4.54, chloride low at 91.4 and creatinine 0.98 and stable. GFR 56. Glucose 108.1. Calcium 9.09. AST ALT normal at 34.7 14.2 with alk phos mildly low at 51.2. Her D-dimer was elevated yesterday at 1210.64. With her sudden onset of symptoms I was concerned with possibility of PE. She has pain in bilateral calves and has been following with wound care. Chronic venous stasis stasis dermatitis and evidence of lymphedematous changes. Urine yesterday 1+ blood 5-10 reds 2-5 whites 5-10 squamous and hyaline and mucus present. She does have parainfluenza for infection as noted at admit. Chest CT was done yesterday with contrast but not a CTA. Extensive bilateral pneumonia was noted greatest in the right lower lobe. She denied any aspirat ion. We are still waiting for the CTA to make sure that there is no evidence of pulmonary embolism. I received a call from nursing last night noting they did not have a big enough IV to give her the contrast. I asked for them to try again in the morning. Blood cultures and sputum cultures were collected. The patient noted yesterday evening legs are always tender. Chronic venous stasis. She has not had any changes to diet recently. During the encounter last night she did ask for regular sugar instead of artificial sweetener. We will provide this. She has recently completed a course of Levaquin as noted due to leg infection concern through wound care. She now has evidence of pneumonia. I have her on Levaquin and cefepime to cover for Pseudomonas. She remains dyspneic and has difficulty tolerating liquids and foods. Port Score for patient 81 points Risk Class III mortality 0.9-2.8%. recommended outpatient vs inpatient treatment depending on clinical judgement. She was poorly tolerating liquids, BRIGGS at rest and worsening. Based on presentation inpatient admission criteria were met. SIRS criteria were met with Pulse >100, WBC >12 (but chronically), RR >20. Overnight nursing notes were reviewed suspected viral and secondary bacterial pneumonia. Patient alert and oriented up with assist x1. She has colostomy bag right lower abdomen. She remains on 4 L and is short of breath at rest. Lungs are quite coarse and wheezy and scattered rhonchi. Chronic tobacco use chronic COPD. Bilateral lower extremities 2+ pitting edema chronically with lymphedematous changes as noted. DANIEL Olson note [id number] reviewed patient remains alert oriented fully speech clear respiratory labor as seen before. Increases with any exertion. Diminished bases productive cough white sputum. Telemetry in place. We discussed compression during evaluation patient noted it was too painful. We discussed elevation of legs as able. Ap[place]aca was placed in the emergency room and patient requested this to remain we will monitor this. Colostomy intact liquid brown stool nondiarrhea. Fall precautions remain. 22-gauge saline lock right hand. Note at 2048 suggested that the Maxipime was little bit late due to the Levaquin infusion. This was documented appropriately. Patient is being rolled over a couple hours to prevent sores. Patient was unable to stand during evaluation yesterday and did not want to get into the bed. I have asked nursing if they are going to do a buttock evaluation these let me know. I was informed of the patient's elevated D-dimer last night around 2240. We will attempt a larger IV this morning. To nurses attempted last night were unsuccessful. We may consider having [employer] DEVELOPER come in today for larger. Patient slept from midnight. Attempted daily weight this morning and patient declined due to feeling short of breath. We will continue using inhalers while in hospital. I will add prednisone 40 mg daily p.o. Expected length of stay another 48 hours or until blood/sputum cultures returned and patient showing signs of improvement. Abx Day 2: Levaquin 750mg IV, cefepime 2grams q 8 hours. New Problem: Elevated Ddimer (many reasons as to why, pending CTA) Pending Sputum/Blood culture. REVIEW OF SYMPTOMS: (Positives bolded) General: weight loss,fever, chills, night sweats, fatigue,appetite loss HEENT: blurry vision, eye pain, eye discharge, dry eyes, decreased vision,sore throattinnitus, bloody nose, hearing loss, sinus pain/pressure, ear pain/pressure. Respiratory: shortness of breath,cough,hemoptysis, wheezing, pleurisy,BRIGGS Cardiovascular:chest pain, PND, palpitation, edema,orthopnea,syncope, swelling of extremities Gastro:Nausea, vomiting, diarrhea, hematemesis, abdominal pain, constipation Genito:hematuria, dysuria, glycosuria, hesitancy, frequency, incontinence, +Colostomy, [place]:Arthralgia, myalgia, muscle weakness, joint swelling, NSAID use Skin:rash bilateral LE chronic venous stasis/stasiis derm, pruritis, sores, nail changes, skin thickening, change in wart/mole, itching, rash, new lesions, pruritus, nail changes Neuro: Migraine, numbness, ataxia, tremor, vertigo,weakness, memory loss, Irritability, dizziness Endocrine:excessive thirst, polyuria, cold intolerance, heat intolerance, goiter Psychiatric: depression, anxiety, anti-depressants,alcohol abuse, drug abuse, insomnia,change in sleep pattern and mood changes Heme/lymph:easy bruising, bleeding gums, blood clots, swollen glands, lymphedema, Allergic/immune:allergic rhinitis, hay fever, asthma, hives Objective: Vital Signs - 24 hr 03/01/21 08:47 03/01/21 16:42 03/01/21 17:28 Temperature 97.6 F 98.0 F 98.0 F Pulse Rate 116 H 104 H 104 H Respiratory Rate 28 H 28 H 28 H Blood Pressure 153/69 H 153/69 H O2 Sat by Pulse Oximetry 95 98 98 03/01/21 20:00 03/01/21 21:10 03/02/21 05:13 Temperature 99.6 F 98.0 F Pulse Rate 100 H 83 Respiratory Rate 20 20 Blood Pressure 141/75 H 124/66 O2 Sat by Pulse Oximetry 97 95 95 Constitutional:Appearance-Respiratory distress mild to moderate, Using NC, pursed lip breathing. Accessory muscle use for neck and chest. Unchanged from 03/01/21. Orientation- Oriented x 3, alert Build and Nutrition-[morbidly obese]General- Patient is pleasant and cooperative with the interview and exam. Hard of hearing is present. Integumentary: General-No rashes, ulcers or lesions above waist. Unable to evaluate buttock as patient would not stand, did not want support/assistance. Bilateral LE with chronic lymphedematous changes, chronic stasis, stasis dermatitis, hemosiderin staining. Nails thickened, long and e/o half-way, chronic insufficiency.. DP pulse 1+, PT 1+. Palpation- Normal skin moisture/turgor wrists/hands/arms. thickened/coarse, dry skin beyond knees bilaterally. Skin is warm to touch, appropriate. Capillary refill is normal bilateral Upper and lower extremity. Head/Neck:Head- normocephalic and atraumatic.Neck- without visible/palpable lumps or pulsations.Palpation- No bony tenderness about head/neck along frontal, occipital, temporal, parietal, mastoid, jawline, zygoma, orbit or any other location. NO temporal artery tenderness. No TMJ tenderness. Neck Supple.Thyroid-No thyromegaly, no nodules Eye:Bilaterally PERRLA, EOMI. No discharge. Upper and lower eyelids are earle l. Sclera/conjunctiva normal without discharge. Cornea is normal and clear. Lens is normal. Eyeball appears normal. No ciliary flushing, no conjunctival injection. ENMT:Oropharynx- no pharyngeal erythema, Uvula midline. No post nasal drip. No exudate.Salivary glands- Non tender to palpation CHEST/LUNG:Inspection- symmetric chest wall no pectus deformity. increased effort, Distant heart sounds. Wheezes, crackles and rhonchi throughout. E/O chronic lung related disease. Accessory muscles utilzed. Palpation- nontender sternum, ribline. No abnormal pulsations.Auscultation- Breath sounds coarse throughout tracheal sounds, bronchial sounds overlying sternum, Bronchovessicular sounds between scapulae posteriorly, vessicular breath sounds heard throughout periphery. Adventitious sounds- wheezes, rales, rhonchi.throughout. Coarse. CARDIOVASCULAR:Carotid artery-normal, no bruits or abnormal pulsations. Jugular vein- no pulsations.Palpation/Percussion- Normal PMI, no palpable thrill Auscultation- Regular rate and rhythm. No murmur noted in sitting, supine positions.Extremities- no digital clubbing, cyanosis, edema, increased warmth. ABDOMEN:Inspection- normal and no visible pulsations. Normal contour. Auscultation- Bowel sounds normal, no abdominal bruits.Palpation/Percussion- soft, non-tender, no rebound tenderness, no rigidity (guarding), no jar tenderness, no masses.Ostomy site RLQ abdomen. Apodaca in place. Gastrostomy site RLQ intact c/d/i. Non tender. Peripheral Vascular:Upper extremityLeft- Normal temperature with pink nailbeds and no ulcerations.Upper extremity Right-Normal temperature with pink nailbeds and no ulcerations.Lower extremity- coarse, thickened skiin, chronic changes present. Chronic 2+ edema, pitting edema, thickened skin, scaley. Edema- 3+ pitting edema. Musculoskeletal:Generalized-No generalized swelling or edema of upper extremities, Lower extremities as noted above. Limited ROM of bilateral shoulders/hips. Limited ambuiation. 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 Limited ROM of knees and ankles as well due to chronic changes in skin. Neurological:General- Moves all 4 extremities symmetrically. Symmetrical face and body posture.Cranial nerves- individually evaluated II-XII and intact. PERRLA, Normal EOMI, visual/special senses appear intact, Face is symmetrical and normal sensation/movement, normal tongue, normal strength/posture of neck musculature. Neuropsych:Oriented- Person, place, time. (AAOx3),Mood/affect- normal and congruent. Able to articulate well.Speech-Normal speech, normal rate, normal tone, normal use of language, volume and coherence.Thought content- normal wit h ability to perform basic computations and apply abstract thought/reason. Associations- intact, no SI/HI, no hallucinations, delusions, obsessions. Judgment/insight- Appropriate.Memory-Recall intact, remote and recent memory intact.Knowledge- Age appropriate fund of knowledge, concentration and attention span normal. Lymphatic: Head/Neck- normal size and non tender to palpation. Laboratory Last Values WBC 20.24 K/ul (4.6-10.2) H 03/02/21 05:05 RBC 3.71 10^6/ul (4.20-5.40) L 03/02/21 05:05 Hgb 10.6 g/dl (12.0-16.0) L 03/02/21 05:05 Hct 33.4 % (37.0-47.0) L 03/02/21 05:05 MCV 90.0 fl (81.0-99.0) 03/02/21 05:05 MCH 28.6 pg (27.0-31.0) 03/02/21 05:05 MCHC 31.7 (31.8-35.4) L 03/02/21 05:05 RDW Coeff of [place] 14.8 % (11.6-14.8) 03/02/21 05:05 Plt Count 181 10^3/uL (140-440) 03/02/21 05:05 Immature Gran % (Auto) 0.3 % (0.0-5.0) 03/01/21 09:15 Neut % (Auto) 89.8 % (42.2-75.2) H 03/01/21 09:15 Lymph % (Auto) 3.4 (10.0-50.0) L 03/01/21 09:15 [place] % (Auto) 5.3 (0-10) 03/01/21 09:15 Eos % (Auto) 1.0 % (0.0-7.0) 03/01/21 09:15 Baso % (Auto) 0.2 % (0.0-3.0) 03/01/21 09:15 Neut # (Auto) 18.0 K/ul (2.0-6.9) H 03/01/21 09:15 Lymph # (Auto) 0.7 K/uL (0.60-3.4) 03/01/21 09:15 [place] # (Auto) 1.1 K/uL (0.4-2.0) 03/01/21 09:15 Eos # (Auto) 0.2 K/ul (0.0-0.7) 03/01/21 09:15 Baso # (Auto) 0.1 K/uL (0-0.2) 03/01/21 09:15 Immature Gran # (Auto) 0.1 (0.0-1.0) 03/01/21 09:15 Neutrophils % (Manual) 91.0 % (42.2-75.2) H 03/02/21 05:05 Band Neutrophils % 3.0 % (0.0-5.0) 03/02/21 05:05 Lymphocytes % (Manual) 2.0 % (10.0-50.0) L 03/02/21 05:05 Monocytes % (Manual) 4.0 % (0.0-10.0) 03/02/21 05:05 Anisocytosis Not present (NOT PRESENT) 03/02/21 05:05 Puncture Site R rad 03/01/21 09:05 Base Excess 9.1 (-2.0-3.0) H 03/01/21 09:05 O2 Saturation 94.3 % (94-98) 03/01/21 09:05 ABG pH 7.36 (7.35-7.45) 03/01/21 09:05 ABG pCO2 61.0 mmHg (35-45) H 03/01/21 09:05 ABG pO2 75.0 mmHg (85-100) L 03/01/21 09:05 ABG HCO3 34.5 (21-28) H 03/01/21 09:05 ABG Total CO2 36.4 (19-24) H 03/01/21 09:05 Cm Test Y 03/01/21 09:05 Hemoglobin 0.9 (0-1.5) 03/01/21 09:05 Oxyhemoglobin 93.8 % (95-100) L 03/01/21 09:05 Carboxyhemoglobin 2.6 (0.5-1.5) H 03/01/21 09:05 Total Hemoglobin 12.0 g/dl (11.7-17.4) 03/01/21 09:05 O2 Delivery Device Cannula 03/01/21 09:05 Oxygen Liter Flow 4.00 03/01/21 09:05 Sodium 131.8 mmol/L (134.5-145) L 03/02/21 05:05 Potassium 4.54 mmol/L (3.5-5.1) 03/02/21 05:05 Chloride 91.4 mmol/L (98-107) L 03/02/21 05:05 Carbon Dioxide 33.2 mmol/L (22-30.0) H 03/02/21 05:05 Anion Gap 11.74 03/02/21 05:05 BUN 25.6 mg/dL (7-17) H 03/02/21 05:05 Creatinine 0.98 mg/dL (0.60-1.30) 03/02/21 05:05 Estimated GFR (MDRD) 56.00 mL/min 03/02/21 05:05 BUN/Creatinine Ratio 26.12 03/02/21 05:05 Glucose 108.1 mg/dL (74-106) H D 03/02/21 05:05 Lactic Acid 1.94 mmol/L (0.7-2.1) 03/01/21 10:53 Calcium 9.09 mg/dL (8.4-10.2) 03/02/21 05:05 Magnesium 1.96 mg/dL (1.6-2.3) 03/01/21 09:15 Total Bilirubin 0.92 mg/dL (0.2-1.3) 03/02/21 05:05 AST 34.7 U/L (14-36) 03/02/21 05:05 ALT 14.2 U/L (0-35) 03/02/21 05:05 Alkaline Phosphatase 51.2 U/L (53-141) L D 03/02/21 05:05 Total Creatine Kinase 118.2 U/L (30-135) 03/01/21 09:15 CK-MB (CK-2) 2.730 ng/ml (0.0-2.38) H 03/01/21 09:15 CK-MB (CK-2) % 2.3000 03/01/21 09:15 NT-Pro-B Natriuret Pep 411.000 pg/mL (0-124) H 03/01/21 09:15 Total Protein 7.19 g/dL (6.3-8.2) 03/02/21 05:05 Albumin 3.73 g/dL (3.5-5.0) 03/02/21 05:05 Globulin 3.46 03/02/21 05:05 Albumin/Globulin Ratio 1.07 03/02/21 05:05 Procalcitonin 2.10 ng/mL (0.09) H 03/01/21 09:15 TSH 1.350 uIU/L (0.465-4.68) 03/01/21 09:15 D-Dimer 1210.64 ng/mL (<500) H 03/01/21 21:30 Urine Color Yellow (YELLOW) 03/01/21 14:10 Urine Clarity Clear (CLEAR) 03/01/21 14:10 Urine pH 7.0 (5-9) 03/01/21 14:10 Ur Specific [place] 1.015 (1.005-1.030) 03/01/21 14:10 Urine Protein Negative (NEGATIVE) 03/01/21 14:10 Urine Glucose (UA) Negative (NEGATIVE) 03/01/21 14:10 Urine Ketones Negative (NEGATIVE) 03/01/21 14:10 Urine Blood 1+ (NEGATIVE) H 03/01/21 14:10 Urine Nitrite Negative (NEGATIVE) 03/01/21 14:10 Urine Bilirubin Negative (NEGATIVE) 03/01/21 14:10 Urine Urobilinogen 0.2 (0.2) 03/01/21 14:10 Ur Leukocyte Esterase Negative (NEGATIVE) 03/01/21 14:10 Urine Microscopic RBC 5-10 (0-2) 03/01/21 14:10 Urine Microscopic WBC 2-5 (0-2) 03/01/21 14:10 Ur Squamous Epith Cells 5-10 (0-5) 03/01/21 14:10 Hyaline Casts 2-5 (NOT PRESENT) 03/01/21 14:10 Urine Mucus 2+ (NOT PRESENT) 03/01/21 14:10 Adenovirus (PCR) Not detected (NOT DETECT) 03/01/21 09:15 B. pertussis DNA (PCR) Not detected (NOT DETECT) 03/01/21 09:15 B.parapertussis DNA PCR Not detected (NOT DETECT) 03/01/21 09:15 C. pneumoniae DNA (PCR) Not detected (NOT DETECT) 03/01/21 09:15 Coronavirus OC43 (PCR) Not detected (NOT DETECT) 03/01/21 09:15 Coronavirus HKU1 (PCR) Not detected (NOT DETECT) 03/01/21 09:15 Coronavirus 229E (PCR) Not detected (NOT DETECT) 03/01/21 09:15 Coronavirus NL63 (PCR) Not detected (NOT DETECT) 03/01/21 09:15 Human Metapneumovir PCR Not detected (NOT DETECT) 03/01/21 09:15 Influenza Type A (PCR) Not detected (NOT DETECT) 03/01/21 09:15 Influenza B (RT-PCR) Not detected (NOT DETECT) 03/01/21 09:15 M. pneumoniae (PCR) Not detected (NOT DETECT) 03/01/21 09:15 Parainfluenza 1 (PCR) Not detected (NOT DETECT) 03/01/21 09:15 Parainfluenza 2 (PCR) Not detected (NOT DETECT) 03/01/21 09:15 Parainfluenza 3 (PCR) Not detected (NOT DETECT) 03/01/21 09:15 Parainfluenza 4 (PCR) Detected (NOT DETECT) H 03/01/21 09:15 RSV (PCR) Not detected (NOT DETECT) 03/01/21 09:15 Entero/Rhino (PCR) Not detected (NOT DETECT) 03/01/21 09:15 SARS-CoV-2 (PCR) Not detected (NOT DETECT) 03/01/21 09:15 Sputum and Blood cultures Pending. CTA should be done this am. Below (1) Pneumonia: Status: Acute Code(s): J18.9 - Pneumonia, unspecified organism SNOMED Code(s): 796128108 (2) Pseudomonas infection: Status: Acute Code(s): A49.8 - Other bacterial infections of unspecified site SNOMED Code(s): 30063536 (3) Stasis dermatitis of both legs: Status: Inactive Code(s): I87.2 - Venous insufficiency (chronic) (peripheral) SNOMED Code(s): 06995204 (4) Current every day nicotine vaping: Code(s): Z72.0 - Tobacco use SNOMED Code(s): 804065002 (5) Chronic obstructive pulmonary disease: Code(s): J44.9 - Chronic obstructive pulmonary disease, unspecified SNOMED Code(s): 55053094 (6) Generalized anxiety disorder: Code(s): F41.1 - Generalized anxiety disorder SNOMED Code(s): 51058176 (7) Major depressive disorder, recurrent, unspecified: Code(s): F33.9 - Major depressive disorder, recurrent, unspecified SNOMED Code(s): 47338390 (8) Acquired hypothyroidism: Code(s): E03.9 - Hypothyroidism, unspecified SNOMED Code(s): 719741962 (9) Generalized edema: Code(s): R60.1 - Generalized edema SNOMED Code(s): 909995947 (10) Body mass index (BMI) of 40.1 to 44.9 in adult: Status: Inactive Code(s): Z68.41 - Body mass index [BMI] 40.0-44.9, adult SNOMED Code(s): 396549071 (11) Chronic respiratory failure with hypoxia, on home oxygen therapy: Code(s): J96.11 - Chronic respiratory failure with hypoxia; Z99.81 - Dependence on supplemental oxygen SNOMED Code(s): 829845014 (12) Colostomy present on admission: Code(s): Z93.3 - Colostomy status SNOMED Code(s): 577301215 (13) Boil of buttock: Status: Acute Code(s): L02.32 - Furuncle of buttock SNOMED Code(s): 75079619 (14) Leukocytosis: Status: Acute Code(s): D72.829 - Elevated white blood cell count, unspecified SNOMED Code(s): 480491467 (15) Hypertension, essential, benign: Status: Acute Code(s): I10 - Essential (primary) hypertension SNOMED Code(s): 6420313 Plan: Pneumonia/SIRS/Elevated Procalcitonin/History of COPD: HD #2 Pneumonia. Doing somewhat better. Chronic tobacco. Elevated Ddimer noted. Refused CTA. Abx day #2 Levaquin 750 IV, cefepime q 8 hours IV. Patient is no different. She has not been out of the bedside chair. Discussed incentive spirom, discussed OOB, discussed ambulation. She did not want to do that. She noted she felt too weak. Did not want therapy yet. We will continue another 24-48 hours of abx, will work on overall care. At present patient is no worse to may be a bit better. Inhalers to continue. Nursing found a vape on her person. Counseled regarding need to avoid tobacco. She wants full diet, does not want DASH diet. Does not want any limits. Poor compliance with care, poor interaction. Lives with daughter, notes that daughter does not help her much. Weakness is worsening per her report. Apodaca in place. - Admit to inpatient status - Telemetery - am cbc/cmp - F/U with sputum and blood cultures. - Colostomy care - DASH diet encouraged. - OOB, incentive spirometry - Albuterol q 4 hours prn - Lovenox 40 mg subcutaneously daily for DVT Prophy -Continue budesonide Po medication. Continue Mucinex twice daily Buttock boil: Await culture results. Continue levaquin and cefepime to cover for likely GI/?Pseudomoonal. She will not stand long to allow buttock eval. Will not get into hospital bed. -Continue to monitor Antibiotics as listed Venous stasis/stasis dermatitis/lymphedema: Completed course of Levaquin prior to hospital stay. Legs chronic poor stasis. She will not elevate legs. She continues to have thickened, lymphedematous tissues. Continue to monitor. Wound therapy. Without elevation of legs, without compression (refused both), limited ability to help. Declined doppler LE (they hurt too much).. I discussed with her the need to check for clots. She is aware of the risk of clots but does not want to do the test. Leukocytosis: Chronic infection, chronic poor health. May benefit from peripheral smear and maybe flow cytometry as OP. Etiology unknown ?Chronic infection. This may be a result of chronic venous stasis and chronic skin changes of the lower extremities. - Monitor CBC CHF: Limit fluids via IV. We will monitor fluids and daily weights. - Monitor - Daily weight encouraged - I+O monitored. Hypokalemia: K+cl- 10meq BID w/meals. Stable at present monitor.03/02 CMP K+ 4.54. Anemia: Normocytic anemia. 10.6 hgb down from 11.4. MCV 90.0 and rdw 14.8. We will continue to monitor. - Daily CBC - Monitor for worsening. Hyponatremia: Patient has a mild hyponatremia. 131.8. We will monitor with daily CMP. - CMP daily. Hyperglycemia: Sugars <126 fasting <200 random. MOnitor w/ CMP. Goal <150. - Monitor CMP daily. Depression/anxeity: Continue home medications to include Prozac 40 mg daily. Continue Atarax at bedtime. HLD: Patient is not currently on a statin. Declined by patient to add one. R/B/A to meds d/w patient, SE reviewed, handout offered regarding medications listed. Declined. We will address this as an outpatient. Blood pressure is controlled. Home medications reviewed with patient again today. She is on metoprolol succinate 25 mg daily we will continue this during hospital stay. Monitor blood pressure. Patient goal of less than 150/90 at this time as she has no history of diabetes. Essential HTN: At goal, monitor. - Tele. - Vitals q 8 hours Acquired hypothyroidism: Most recent TSH 1.350 normal. Goal TSH for patient 1- 3. We will continue home medications levothyroxine 75 mcg daily. Diet: Cardiac 1800kcl DASH (DECLINED) Asks for salt. DVT Prophy: 40mg subcut lovenox. Nicotine dependence/Vaping: Tobacco Cessation discussed today for 3 minutes. Declined patches/gum/lozenges. Declined meds wellbutrin and chantix. in for assistance. I will reassess the interest in tobacco cessation at the next and all subsequent visit. - Nicotine d/w patient - Patches d/w patient. Declined other forms to include nicotrol. - No, she cannot vape in hospital. Disposition: Expected length of stay 3 days. Patient has bilateral pneumonia and buttock abscess. She is on levaquin and cefepime. We are awaiting sputum/blood cultures. Patient lack of compliance/involvement reviewed today. Ddimer returned +. Declined CT PE protocol. Called and talked with radiology. Low risk for large vessel clot. Declined PE protocol CT, doppler LE, VQ scan. She is on lovenox 40mg subcut. The patient and I discussed dispo. "I cannot go home. NObody there to help me." We will continue to work on weight. I again encouraged OOB. Encouraged incentive spirom. Encouraged ambulation/activity. She notes she is too weak. We will continue to focus on fluid reduction. Daily weights encouraged. 35 minutes spent rounding with patient today, d/w ER, review labs, imaging, telemetry, review w/ nursing. Not including documentation time.
[2021-03-02] MEDS: TOPROL XL PO SCH (08:56)
[2021-03-02] MEDS: MULTIVITAMIN TABLET PO SCH (08:56)
[2021-03-02] MEDS: MUCINEX PO SCH ×2 (08:56→20:55)
[2021-03-02] MEDS: VITAMIN D PO SCH (08:56)
[2021-03-02] MEDS: MICRO-K CAP PO SCH ×2 (08:56→16:54)
[2021-03-02] MEDS: PROZAC PO SCH (08:56)
[2021-03-02] MEDS: BACTROBAN TP SCH ×2 (08:57→21:13)
[2021-03-02] MEDS: SYMBICORT 160-4.5 MCG INHALER IH SCH ×2 (08:57→20:55)
[2021-03-02] MEDS ORDERED: ROCEPHIN 1 GM/50 ML D5W 1 GM/50 ML BAG IV SCH (09:00)
[2021-03-02] MEDS: LEVAQUIN 750 MG/150 ML D5W 750 MG/150 ML BAG IV SCH (09:00)
[2021-03-02] MEDS: ATARAX PO PRN (12:11)
[2021-03-02] MEDS: ATARAX PO SCH (20:54)
[2021-03-03] MEDS: MAXIPIME 2 GM/50 ML D5W 2 GM/50 ML BAG IV SCH ×3 (04:50→20:27)
[2021-03-03] MEDS: SYNTHROID PO SCH (06:53)
[2021-03-03] MEDS: MICRO-K CAP PO SCH ×2 (09:20→17:20)
[2021-03-03] MEDS: TOPROL XL PO SCH (09:20)
[2021-03-03] MEDS: MUCINEX PO SCH ×3 (09:20→20:28)
[2021-03-03] MEDS: MULTIVITAMIN TABLET PO SCH (09:20)
[2021-03-03] MEDS: PROZAC PO SCH (09:21)
[2021-03-03] MEDS: BACTROBAN TP SCH ×2 (09:21→21:55)
[2021-03-03] MEDS: SYMBICORT 160-4.5 MCG INHALER IH SCH ×2 (09:21→20:27)
[2021-03-03] MEDS: VITAMIN D PO SCH (09:21)
[2021-03-03] MEDS: LEVAQUIN 750 MG/150 ML D5W 750 MG/150 ML BAG IV SCH (09:21)
--- NOTE | 2021-03-03 09:28 | PCM.PROG ---
Date Seen by Provider: 03/03/21 Time Seen by Provider: 09:24 Subjective: 70-year-old female hospital day #3. Antibiotic day #3 cefepime 2 g every 8 hours and Levaquin 750 mg IV daily. We will complete 5 days of antibiotics. The patient has a history of Pseudomonas, although this was a wound infection and not pneumonia. She is receiving albuterol as needed. Home medicines were continued. She was on lovenox, but I do not see this on orders. I have reordered it. Vital signs overnight reviewed. She remains afebrile. Heart rate listed as 73-83.Blood pressure stable 124/66, 112/71, 124/70, 114/68. Oxygen saturations currently at 96 to 99% on 4 L nasal cannula. Remote telemetry shows normal sinus rhythm. QRS intervals stable and less than 0.12. UT intervals of less than 0.2. Input and output data reviewed the patient has had several voids. She still has a catheter in place. These are being monitored. Patient had 1050 output yesterday. This is reasonable. Meal consumption listed as zero over the last 24 hours. She was n.p.o. for CTA yesterday. When she got to the imaging facility she declined the procedure. I did talk with radiology yesterday. They noted the previous CT with contrast showed no clot in the main arteries. I cannot see the subsegmental's. She was started on Lovenox initially. Again I noted on orders that this was not present. I have resumed this. Morning labs have fallen off of the orders. I have reordered morning labs as well.Nursing notes reviewed. Nursing contacted me yesterday with some anxiety. I did allow for Atarax as needed dosing. [address] scan as noted. Patient is being turned every 2 hours. There is no evidence of sacral decubitus ulcers. Skin is monitored. Telemetry is monitored continuously. This morning at five 10 in the morning patient slept and set upright in the chair all night. I have asked for daily weights. Her legs are elevated this morning. Both legs remain edematous. She is not on IV fluids outside of IV antibiotics. She is on daily Lasix we will continue this. Case management note from yesterday reviewed. Admitted with bilateral pulmonary pneumonia. Known chronic respiratory failure. Generalized edema venous insufficiency stasis dermatitis of both legs. She remains alert and oriented x4, hard of hearing. She is sitting in recliner breathing is better today. Labs are monitored. She reported to case management difficulty breathing with legs elevated. Labored respirations at rest and with exertion. Respirations moist productive at times thick clear secretions. Unable to lie in the bed. Skin is very dry scaly and cracked. Cultures are pending. Culture of purulence from the buttock has returned as E. coli. It is sensitive to Levaquin and to cephalosporins. We will continue current treatment for 5 days.Blood cultures preliminary negative. Strep negative. Sputum culture still pending. Likely complete 7 days of Levaquin to cover for skin and pneumonia. I will likely stop cefepime in next 24 hours once sputum culture returns. Talked with nursing at 945. The patient has refused labs x2 this morning. It appears that the Lovenox order had fallen off and transition from the emergency room to the hospital. I made sure they were aware and they will give Lovenox this morning. Lengthy discussion with patient this morning. We discussed the need to check labs and weights. Case management in room at time of discussion. Patient did not want any more sticks today. We discussed need for labs and that I cannot assess and adjust her care if we do not have new information. Patient did not want to go home, patient did not want group home. After lengthy discussion she was agreeable to consider 1 week at group home versus swing bed. She agreed to physical therapy and Occupational Therapy. I have made sure that the Lovenox order was on board and made sure that therapy orders were placed. I have resumed Lasix and given IV Lasix today. REVIEW OF SYMPTOMS: (Positives bolded) General: weight loss,fever, chills, night sweats,fatigue,appetite loss HEENT: blurry vision, eye pain, eye discharge, dry eyes, decreased vision,sore throattinnitus, bloody nose, hearing loss, sinus pain/pressure, ear pain/pressure. Respiratory: shortness of breath,cough,hemoptysis, wheezing, pleurisy,BRIGGS Cardiovascular:chest pain, PND, palpitation,edema,orthopnea,syncope, swelling of extremities Gastro:Nausea,vomiting, diarrhea, hematemesis, abdominal pain, constipation Genito:hematuria, dysuria, glycosuria, hesitancy, frequency, incontinence, +Colostomy, Apodaca [place]:Arthralgia, myalgia, muscle weakness, joint swelling, NSAID use Skin:rash bilateral LE chronic venous stasis/stasiis derm, pruritis,sores, nail changes, skin thickening,change in wart/mole, itching, rash, new lesions, pruritus, nail changes Neuro: Migraine, numbness, ataxia, tremor, vertigo,weakness, memory loss, Irritability, dizziness Endocrine:excessive thirst, polyuria, cold intolerance, heat intolerance, goiter Psychiatric: depression, anxiety, anti-depressants,alcohol abuse, drug abuse, insomnia,change in sleep pattern and mood changes Objective: Vital Signs - 24 hr 03/02/21 10:00 03/02/21 14:00 03/02/21 21:16 Temperature 97.6 F 97.4 F L Pulse Rate 76 73 Respiratory Rate 20 20 Blood Pressure 112/71 124/70 O2 Sat by Pulse Oximetry 98 96 99 03/03/21 05:17 03/03/21 05:56 Temperature 97.3 F L Pulse Rate 78 Respiratory Rate Blood Pressure 114/68 O2 Sat by Pulse Oximetry 97 97 Constitutional:Appearance-Respiratory distress none, pursed lip breathing. Patient remains in bedside chair. Her legs are actually elevated this am. Skin unchanged bilateral lower extremities. Nails long, needing tending. Bilateral UE dry, crusty. Using NC 4L, pursed lip breathing.No Accessory muscle use for neck and chest this am.. Orientation- Oriented x 3, alertBuild and Nutrition- [morbidly obese]General- Patient is hard of hearing. She has declined several aspects of her care. Integumentary: Still Unable to personally evaluate buttock. Will not stand, will not get into bed. Bilateral LE with chronic lymphedematous changes, chronic stasis, stasis dermatitis, hemosiderin staining. Nails thickened, long and e/o terminal gauger, chronic insufficiency.. DP pulse 1+, PT 1+.Palpation- Normal skin moisture/turgor wrists/hands/arms. thickened/coarse, dry skin beyond knees bilaterally. Skin is warm to touch, appropriate. Capillary refill is normal bilateral Upper and lower extremity. No open areas today. ctival injection. ENMT:Nose and sinus- No sinus tenderness along frontal/maxillary region. External appearance normal and midline.Nares- bilateral quiet airflow, no discharge.Nasal mucosa- No bleeding noted and no ulcerations observed. [place], moist. Turbinates non boggy.Lips-normal color, moist without cracks/lesions Oral Cavity/Palate- hard/soft palate intact without lesions, oral mucosa pink and moist. Tongue normal midline.Oropharynx- no pharyngeal erythema, Uvula midline. No post nasal drip. No exudate.Salivary glands- Non tender to palpation CHEST/LUNG:Inspection- symmetric chest wall no pectus deformity. increased effort, Distant heart sounds. Wheezes, crackles and rhonchi throughout. E/O chronic lung related disease. Accessory muscles utilzed.Palpation- nontender sternum, ribline. No abnormal pulsations.Auscultation- Breath sounds coarse throughout tracheal sounds, bronchial sounds overlying sternum, Bronchovessicular sounds between scapulae posteriorly, vessicular breath sounds heard throughout periphery.Adventitious sounds- wheezes, rales, rhonchi.throughout. Coarse. Lung sounds are improving. Crackles are larger, less fine. We discussed incentive spirom. Discussed deeper breathing. "I am just too tired honey." CARDIOVASCULAR:Carotid artery-normal, no bruits or abnormal pulsations. Jugular vein- no pulsations.Palpation/Percussion- Normal PMI, no palpable thrillAuscultation- Regular rate and rhythm. No murmur noted in sitting, supine positions.Extremities- no digital clubbing, cyanosis, edema, increased warmth. ABDOMEN:Inspection- normal and no visible pulsations. Normal contour.Aus cultation- Bowel sounds normal, no abdominal bruits.Palpation/Percussion- soft, non-tender, no rebound tenderness, no rigidity (guarding), no jar tenderness, no masses.Ostomy site RLQ abdomen. Apodaca in place. Unchanged. Cream along lower abdomen. Peripheral Vascular Lower extremity- coarse, thickened skiin, chronic changes present. Chronic 2+ edema, pitting edema, thickened skin, scaley.Edema- 2+ to 3+ bialteral LE pitting edema. Musculoskeletal:Generalized-Limited ROM of bilateral shoulders/hips. Limited ambuiation. 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 Limited ROM shoulders, Limited ROM of knees and ankles as well due to chronic changes in skin. Decreased effort. Neurological:General- Moves all 4 extremities symmetrically. Symmetrical face and body posture.Cranial nerves- individually evaluated II-XII and intact. PERRLA, Normal EOMI, visual/special senses appear intact, Face is symmetrical and normal sensation/movement, normal tongue, normal strength/posture of neck musculature. Neuropsych:Oriented- Person, place, time. (AAOx3),Mood/affect- Minimally involved. Flat. Speech-Normal speech, normal rate, normal tone, Associations- intact, no SI/HI, no hallucinations, delusions, obsessions.Judgment/insight- Limited. Lymphatic: Head/Neck- normal size and non tender to palpation. Labs: As of documentation, patient had declined labs, weight today. Declined CT PE protocol yesterday. (1) Pneumonia: Status: Acute Code(s): J18.9 - Pneumonia, unspecified organism SNOMED Code(s): 767273217 (2) Pseudomonas infection: Status: Acute Code(s): A49.8 - Other bacterial infections of unspecified site SNOMED Code(s): 41415415 (3) Stasis dermatitis of both legs: Status: Inactive Code(s): I87.2 - Venous insufficiency (chronic) (peripheral) SNOMED Code(s): 80577051 (4) Current every day nicotine vaping: Code(s): Z72.0 - Tobacco use SNOMED Code(s): 801369198 (5) Chronic obstructive pulmonary disease: Code(s): J44.9 - Chronic obstructive pulmonary disease, unspecified SNOMED Code(s): 42077443 (6) Generalized anxiety disorder: Code(s): F41.1 - Generalized anxiety disorder SNOMED Code(s): 90496165 (7) Major depressive disorder, recurrent, unspecified: Code(s): F33.9 - Major depressive disorder, recurrent, unspecified SNOMED Code(s): 04528653 (8) Acquired hypothyroidism: Code(s): E03.9 - Hypothyroidism, unspecified SNOMED Code(s): 823143686 (9) Generalized edema: Code(s): R60.1 - Generalized edema SNOMED Code(s): 740175223 (10) Body mass index (BMI) of 40.1 to 44.9 in adult: Status: Inactive Code(s): Z68.41 - Body mass index [BMI] 40.0-44.9, adult SNOMED Code(s): 206765747 (11) Chronic respiratory failure with hypoxia, on home oxygen therapy: Code(s): J96.11 - Chronic respiratory failure with hypoxia; Z99.81 - Dependence on supplemental oxygen SNOMED Code(s): 627644300 (12) Colostomy present on admission: Code(s): Z93.3 - Colostomy status SNOMED Code(s): 229320761 (13) Boil of buttock: Status: Acute Code(s): L02.32 - Furuncle of buttock SNOMED Code(s): 85323404 (14) Leukocytosis: Status: Acute Code(s): D72.829 - Elevated white blood cell count, unspecified SNOMED Code(s): 204452978 (15) Hypertension, essential, benign: Status: Acute Code(s): I10 - Essential (primary) hypertension SNOMED Code(s): 5671684 (16) COVID-19 vaccine dose declined: Status: Acute Code(s): Z28.21 - Immunization not carried out because of patient refusal SNOMED Code(s): 280939307544 Plan: Pneumonia/SIRS/Elevated Procalcitonin/History of COPD: HD #3 Pneumonia and ABX Day #3 levaquin 750mg IV and cefepime 2 G q 8 hours IV. patient has been woefully non compliant with care. She has not been mean but she is not following with directives/guidance of healthcare team. She has declined CT PE protocol, Doppler lower extremities, we have discussed physical therapy and she has not wanted this, she does not want to go home, does not want nursing facility. I noted we need to make a decision in the next day or 2 as to how to help her. She does not want to get out of bedside chair. She does not want to elevate her legs. She does not want to use incentive spirometer. She does not want to ambulate. I discussed removal of the [place]aca and she does not want to remove that.Labs today were reviewed and the metabolic panel is better. Hyponatremia has resolved. Potassium is stable. White blood cell count has dropped from 20.24-19.68 hemoglobin has gone from 10.6-10.1 and the platelets have actually increased from 1 81-1 98 suggesting dilutional process is not present. She does not have maintenance fluids. We will give her 20 mg of Lasix IV as well as continue her home oral Lasix. I would like daily weights. Patient declined going back in the bed the way we discussed putting her into the wheelchair. She feels she is too weak to stand too weak to transfer. We discussed home life and she said her daughter is useless and will not help her. I asked why the patient cannot help herself and she stared at me blankly and then said I can hear you honey. It appears that she likes to use the hearing when it is convenient. I suspect need for short-term nursing facility discharge. Blood cultures negative to date. Sputum cultures have not been collected as patient has not provided sample. No further drainage from the buttock. Vital signs are stable. - Admit to inpatient status - Telemetery - am cbc/cmp - F/U with blood cultures. - Colostomy care - DASH diet encouraged. - OOB, incentive spirometry - Albuterol q 4 hours prn - Ipratropium 4x daily. - Lovenox 40 mg subcutaneously daily for DVT Prophy -Continue budesonide Po medication. Continue Mucinex twice daily Buttock boil:E. Coli. Sensitive to levaquin. Continue x 7 days. She will not get into hospital bed. She wwill not allow me to evaluate area. Levaquin 750mg IV x 5-7 days to cover for CAP and for wound. -Continue to monitor Antibiotics as listed Venous stasis/stasis dermatitis/lymphedema: Completed course of Levaquin prior to hospital stay. At present I do not feel she has infection in legs. Would like doppler. Declined by patient. She will not elevate legs. Will not get into bed. She continues to have thickened, lymphedematous tissues. Continue to monitor. Wound therapy encouraged. . Without elevation of legs, without compression (refused both), limited ability to help. Declined doppler LE (pain). Leukocytosis:Chronic infection, chronic poor health. May benefit from periph eral smear and maybe flow cytometry as OP. Etiology unknown ?Chronic infection. This may be a result of chronic venous stasis and chronic skin changes of the lower extremities. - Monitor CBC Levels <20 today. CHF:Limit fluids via IV. We will monitor fluids and daily weights. - Monitor - Daily weight encouraged - I+O monitored. Hypokalemia:K+cl- 10meq BID w/meals. Remains stable on supplement. 4.14 today. - Daily CMP. Anemia: Normocytic anemia. 10.1 MCV 91.8 and rdw 15.1. We will continue to monitor. - Daily CBC - Monitor for worsening. Hyponatremia: <RESOLVED> Monitor - CMP daily. Hyperglycemia:Sugars <126 fasting <200 random. MOnitor w/ CMP. Goal <150. - Monitor CMP daily. Depression/anxeity:Continue home medications to include Prozac 40 mg daily. Continue Atarax at bedtime. HLD: Patient is not currently on a statin. Declined by patient to add one. R/B/A to meds d/w patient, SE reviewed, Essential HTN: At goal, monitor. - Tele. - Vitals q 8 hours Acquired hypothyroidism: Most recent TSH 1.350 normal. Goal TSH for patient 1- 3. We will continue home medications levothyroxine 75 mcg daily. Stable. - Continue home meds. Diet:Cardiac 1800kcl DASH (DECLINED) Asks for salt. Asks for coffee 4 creams and 4 sugars. DVT Prophy:40mg subcut lovenox. Nicotine dependence/Vaping: Tobacco Cessation discussed today for 1 minutes. Declined patches/gum/lozenges again. Declined meds wellbutrin and chantix. - Nicotine d/w patient - Patches d/w patient. Declined other forms to include nicotrol. - D/w patient she cannot vape in hospital. Disposition:Expected length of stay 1-2 more days.Social issues discussed with patient. She does not really want to go home she does not want to go to a group home and she likely is not a candidate for swing. We will discuss physical therapy. We will finish 5 days of antibiotics in the hospital and allow patient to have another 1 or 2 days to evaluate what her goals are. She is declining most of what we have to offer. This limits our ability to help her. She is aware of the limitations but still feels she does not have the strength to cooperate/participate. She does not feel she has home help. I discussed home health. She said no. I noted she cannot stay in the hospital as that does not work. I have tried to help her and she has essentially thrown up roadblocks and brought me the entire time. She is aware and she thinks tomorrow will be a better day. I again encouraged OOB. Encouraged incentive spirom. Encouraged ambulation/activity. She notes she is too weak. We will continue to focus on fluid reduction. Daily weights encouraged. 35 minutes spent rounding with joleen garcia today, d/w nursing reviewed labs, imaging, telemetry, and talked with patient./ Not including documentation time.
[2021-03-03] MEDS: LOVENOX SUBCUT SCH (10:05)
[2021-03-03] MEDS ORDERED: LASIX IVP STA (10:26)
[2021-03-03] MEDS ORDERED: LASIX TAB PO SCH (10:30)
[2021-03-03] MEDS: ATROVENT HFA INHALER (PER PUFF-WITH SPACER) IH SCH ×3 (11:09→23:00)
[2021-03-03 12:17] LABS: BASOPHILS % (AUTO) 0.1 % (0.0-3.0); EOSINOPHILS % (AUTO) 0.1 % (0.0-7.0); HEMATOCRIT 32.3 % (37.0-47.0); HEMOGLOBIN 10.1 g/dl (12.0-16.0); IMMATURE GRANULOCYTE # (AUTO) 0.2 (0.0-1.0); IMMATURE GRANULOCYTE % (AUTO) 1.1 % (0.0-5.0); LYMPHOCYTES % (AUTO) 5.1 (10.0-50.0); MEAN CORPUSCULAR HEMOGLOBIN 28.7 pg (27.0-31.0); MEAN CORPUSCULAR HGB CONC 31.3 (31.8-35.4); MEAN CORPUSCULAR VOLUME 91.8 fl (81.0-99.0); MONOCYTES % (AUTO) 5.1 (0-10); NEUTROPHILS # (AUTO) 17.4 K/ul (2.0-6.9); NEUTROPHILS % (AUTO) 88.5 % (42.2-75.2); PLATELET COUNT 198 10^3/uL (140-440); RDW COEFFICIENT OF VARIATION 15.1 % (11.6-14.8); RED BLOOD COUNT 3.52 10^6/ul (4.20-5.40); WHITE BLOOD COUNT 19.68 K/ul (4.6-10.2)
[2021-03-03 12:34] LABS: ALANINE AMINOTRANSFERASE 13.4 U/L (0-35); ALBUMIN 3.64 g/dL (3.5-5.0); ALKALINE PHOSPHATASE 67.4 U/L (53-141); ASPARTATE AMINO TRANSFERASE 22.6 U/L (14-36); BILIRUBIN,TOTAL 0.46 mg/dL (0.2-1.3); BLOOD UREA NITROGEN 34.9 mg/dL (7-17); CALCIUM 9.93 mg/dL (8.4-10.2); CARBON DIOXIDE 39.6 mmol/L (22-30.0); CHLORIDE 91.5 mmol/L (98-107); CREATININE 1.13 mg/dL (0.60-1.30); GLUCOSE 83.5 mg/dL (74-106); POTASSIUM 4.14 mmol/L (3.5-5.1); SODIUM 135.8 mmol/L (134.5-145); TOTAL PROTEIN 7.02 g/dL (6.3-8.2)
[2021-03-03] MEDS: ATARAX PO SCH (20:27)
[2021-03-04] MEDS: ATROVENT HFA INHALER (PER PUFF-WITH SPACER) IH SCH ×4 (05:10→20:40)
[2021-03-04 05:39] LABS: HEMATOCRIT 33.7 % (37.0-47.0); HEMOGLOBIN 10.4 g/dl (12.0-16.0); MEAN CORPUSCULAR HEMOGLOBIN 28.5 pg (27.0-31.0); MEAN CORPUSCULAR HGB CONC 30.9 (31.8-35.4); MEAN CORPUSCULAR VOLUME 92.3 fl (81.0-99.0); PLATELET COUNT 220 10^3/uL (140-440); RDW COEFFICIENT OF VARIATION 15.2 % (11.6-14.8); RED BLOOD COUNT 3.65 10^6/ul (4.20-5.40)
[2021-03-04] MEDS: SYNTHROID PO SCH (05:50)
[2021-03-04] MEDS: LASIX TAB PO SCH (05:50)
[2021-03-04] MEDS: MAXIPIME 2 GM/50 ML D5W 2 GM/50 ML BAG IV SCH ×3 (05:50→20:46)
[2021-03-04 05:52] LABS: ALANINE AMINOTRANSFERASE 18.4 U/L (0-35); ALBUMIN 3.76 g/dL (3.5-5.0); ALKALINE PHOSPHATASE 71.6 U/L (53-141); ASPARTATE AMINO TRANSFERASE 30.6 U/L (14-36); BILIRUBIN,TOTAL 0.4 mg/dL (0.2-1.3); BLOOD UREA NITROGEN 36.7 mg/dL (7-17); CALCIUM 9.41 mg/dL (8.4-10.2); CARBON DIOXIDE 37.3 mmol/L (22-30.0); CHLORIDE 92.5 mmol/L (98-107); CREATININE 1.28 mg/dL (0.60-1.30); GLUCOSE 110.7 mg/dL (74-106); POTASSIUM 3.87 mmol/L (3.5-5.1); SODIUM 136.7 mmol/L (134.5-145); TOTAL PROTEIN 7.2 g/dL (6.3-8.2)
[2021-03-04 06:06] LABS: ANISOCYTOSIS NOT PRESENT (NOT PRESENT)
--- NOTE | 2021-03-04 07:06 | PCM.PROG ---
Date Seen by Provider: 03/04/21 Time Seen by Provider: 07:00 Subjective: 70-year-old female hospital day 4, antibiotic day #08/10 cefepime 2 g every 8 hours 08/12 Levaquin 750 mg IV daily. Patient has decreased p.o. intake worsening lung function, bilateral pneumonia, elevated ddimer, chronic venous stasis. She has declined CT PE protocol 03/02/21, labs yesterday 03/03/21, weight yesterday 03/03/2021. I checked through the orders yesterday and found her home Lasix was not continued I gave her oral and IV Lasix yesterday to help with fluid. Additionally the Lovenox that was requested upon admission had not been ordered and I added that back to the regimen. Yesterday afternoon the patient finally agreed to labs white count had dropped from 20.24-19.68, hemoglobin from 10.6-10.1 and platelets up from 181-198. Metabolic panel showed a stable sodium of 135.8, potassium 4.14, creatinine 1.13 glucose of 83.5 GFR 47 AST 22.6 ALT 13.4. Labs this morning showed a further decline in white blood cell count to 16.60, hemoglobin increased to 10.4 and platelets increased to 220.Metabolic panel showed stable sodium 136.7. Potassium 3.7. The creatinine has increased further to 1.28 up from 0.98 on March 02. GFR 41. Glucose mildly elevated at 110.7. Remainder of metabolic panel within assessable limits.Vital signs over the last 24 hours were reviewed patient remains afebrile. Heart rate ranged from 73-82. Blood pressure 114/68, 109/68, 123/64 and 102/53. Oxygen 94 to 96% on 4 L nasal cannula. Patient is on oxygen at home and this is about where she has been at home. Telemetry reviewed over the last 24 hours. Sinus rhythm with artifact sinus arrhythmia, QRS interval 0.06- .09. AK interval borderline for a first-degree block 0.16-.20. We did get a weight yesterday after patient declined this. She is down 1 pound from March 01 weight. Body mass index remains approximately 42. She had 1500 mL out in 24 hours which is approximately 0.6 milliliters per kilogram per hour over the last 24 hours. She ate approximately 75% of her breakfast but did not eat her dinner. She is already had 300 mils out in the last 7 hours. This is 0.41 mL/kg/h output. This is a little bit lower than we like to see. Patient still has the Apod[place] in place. We asked her if she wanted us to remove that and she said no. Overnight nursing documentation reviewed and nurse Paz provided documentation at 1818 patient resting in chair preferred to sit with legs down despite 2-3+ pitting edema and lymphedematous changes bilateral lower extremities. She noted she could not breathe well with legs up. She has declined and delayed most care in the last 48 hours. She did not want to take a.m. meds this morning bilateral lower extremities remain edematous. Dusky red and scaly unchanged from previous days. Refused lab several times yesterday as well as weights. Ultimately able to get them after talking to her several times and myself asking specifically for her to help so we can get her improved. Needs encouragement for ambulation. She did not want short-term nursing facility, did not want to go home. Patient has been noninvolved with her own care. Remains short of breath with ambulation. Nursing note 1914: Nurse Wesley. Patient sitting in chair labored respirations at rest increased with exertion. Oxygen in place 4 L unchanged from what I mentioned above. O2 95% breath sounds coarse diminished occasional nonproductive cough. They have not collected sputum as patient has not produced any. Apodaca cath draining clear yellow fluid. Patient likes the cath in place. This helps her not have to get up. Nursing note March 04 6:17 AM patient was taken to the wheelchair scale and when brought back to the room refused to get out of the wheelchair and refused to get back into recliner or bed. Nurses were unable to weigh the wheelchair. Patient will not elevate legs. No complaints of pain. I had a lengthy discussion with case management yesterday about disposition for the patient. Current diagnoses maintained bilateral pneumonia, E. coli buttock wound. Blood cultures have been negative and sputum cultures not yet been obtained. Wound culture of buttock wound did grow E. coli sensitive to Levaquin. Patient has history of Pseudomonas. Chronic medical problems include COPD, chronic oxygen dependency due to chronic respiratory failure, chronic edema, stasis dermatitis both legs, anxiety, depressive disorder, hypothyroidism, morbid obesity, chronic tobacco use. In fact she has actually used a vape in the hospital and this had to be confiscated to be given back to her at discharge. History of anemia and a right lower quadrant colostomy. During the time of my visit as well as during the time of case management visit she sat in bedside chair with legs dangling. Respirations remain unchanged moist pursed lip breathing. Bilateral upper extr emities dry and flaky. No abdominal pain or nausea no vomiting no diarrhea. Apodaca draining clear liquid. I did consult PT and OT yesterday. Goal for today is to consider swing versus short-term nursing facility. As noted Lovenox was resumed. She did have a positive D-dimer but refused a CT PE protocol I did talk to radiology about the previous CT chest and they noted there was no evidence of large artery abnormalities suggestive of embolism. Patient has not worsened acutely. Telemetry has been stable. Patient refused therapy after I left the room. Low suspicion the patient will participate with therapy for swing bed. At this time white count is improving. Labs look more stable. Anemia is improving. I have no cultures to direct care I believe de-escalation of therapy is reasonable. We can finish IV antibiotics cefepime day 5 tomorrow and can consider change to PO levaquiin if patient wishes to decline further care. I have offered the patient the option to go home with oral antibiotics and home health, short-term nursing facility as well as swing bed. She has not wanted any of these. Very poor compliance, very poor involvement despite encouragement several times by myself, nurses and case management. The patient and I had a 20-minute conversation today about her health. She notes there is nobody to help her at home, nobody cares for her and that nobody is offering any assistance. I noted for the last 4 days we have tried everything we can do to offer assistance and she has thrown up roadblocks and declined or denied or delayed nearly everything we have tried to help her with. I asked her why she said no to physical therapy she said she is too weak and cannot do it. I asked how she could know that as she has not even tried. She notes she just got too sick she is too weak and even at home could not get to her potty chair. I said the goal of therapy the goal of the hospitalization is to improve health, to improve strength, to give back independence and to allow her to live life. The [place]aca that is in place is hurting her and the fact that she is now not even getting up to use the restroom. This morning she refused to get out of the wheelchair as it was too much for her. I gave her options #1 short-term nursing facility or stay overnight until we can finish the IV antibiotics tomorrow and she can go home. She said she cannot go home because nobody is there to help her to do anything. She noted her daughter will cook cannot cook. She noted her daughter will help her. I brought back up the fact that she declined her morning meds, declined imaging, declined labs, declined weight, declined therapy, declines to get in bed, declined to get out of the wheelchair this morning. I asked her outside of the IVs that we have in her arm what are we doing for her that she cannot do at home? The IV in the right hand was removed by nursing at patient's insistence yesterday even after we discussed to leave it in place while in hospital. The patient is actively fighting against our abilities to help her. Several times as I was talking she would stop me and say I cannot hear you yet she answered my questions. She is not actively suicidal but I think she is giving up. We discussed depression and she does not want to take additional medications. We discussed new beginnings and she did not want that. I asked her what she wanted and she said she does not know. She mentioned one of the nurses and how she seemed to take no "crap from nobody" overconfident and how she would not take anything from anybody and that she had a no cares attitude and ruled the roost. I said to the corollary, our team of nurses are confident and know what they are doing. This particular nurse is a seasoned nurse and is an amazing asset to the team. I noted to the patient that she had the same qualities within her if she would just let them out. We discussed the need to start to stand. Patient balked at this and said it takes too much energy. I said just like a toddler learning to walk. You have to stand before you can walk. She has allowed her health to deteriorate to the point where she does not want to do anything. She understood this. I said individuals like the nurse she described are champions for her health. I noted this is a cooperative (emphasis on co/with) event and at this point it is not that she does not want to cooperate its the fact that she is actively fighting against a team approach. Again she said she could not hear me. I believe she says this at opportune times when the conversation gets too close to home or to upsetting. I do not think the patient is a candidate for swing bed at this time. She can finish IV antibiotics tomorrow. If she is unwilling to cooperate with therapy I believe the best course of action is for patient to go home. She is adamant that she cannot go home as nobody will help her there. I brought up the fact that we are doing everything to help her here and she has refused several things. She then asked for a coffee with for creamers and for sugars. And then she asked me to hand or her bedside click or that had slipped off her leg. I happily obliged and discussed the above with nursing. REVIEW OF SYMPTOMS: (Positives bolded) General: weight loss,fever, chills, night sweats,fatigue,appetite loss HEENT: blurry vision, eye pain, eye discharge, dry eyes, decreased vision,sore throattinnitus, bloody nose, hearing loss, sinus pain/pressure, ear p ain/pressure. Respiratory: shortness of breath,cough,hemoptysis, wheezing, pleurisy,BRIGGS Cardiovascular:chest pain,PND,palpitation,edema,orthopnea,syncope, swelling of extremities Gastro:Nausea,vomiting, diarrhea, hematemesis, abdominal pain, constipation Genito:hematuria, dysuria, glycosuria, hesitancy, frequency, incontinence, +Colostomy, Apodaca [place]:Arthralgia, myalgia, muscle weakness, joint swelling, NSAID use Skin:rash bilateral LE chronic venous stasis/stasiis derm, pruritis,sores, nail changes, skin thickening,change in wart/mole, itching, rash, new lesions, pruritus, nail changes Neuro: Migraine, numbness, ataxia, tremor, vertigo,weakness, memory loss, Irritability, dizziness Endocrine:excessive thirst, polyuria, cold intolerance, heat intolerance, goiter Psychiatric: depression, anxiety, anti-depressants,alcohol abuse, drug abuse, insomnia,change in sleep pattern and mood changes Review of systems essentially unchanged. Patient reports feeling blah. Very short answers very limited involvement in own care. Objective: Vital Signs - 24 hr 03/03/21 10:00 03/03/21 13:58 03/03/21 14:00 Temperature 98 F Pulse Rate 82 Respiratory Rate 20 Blood Pressure 109/68 O2 Sat by Pulse Oximetry 98 100 98 03/03/21 20:00 03/03/21 21:58 03/04/21 05:26 Temperature 98.1 F 98.2 F Pulse Rate 73 74 Respiratory Rate 22 22 Blood Pressure 123/64 102/53 L O2 Sat by Pulse Oximetry 94 L 94 L 96 03/04/21 05:39 Temperature Pulse Rate Respiratory Rate Blood Pressure O2 Sat by Pulse Oximetry 94 L Constitutional:Appearance-Respiratory distress mild to moderate better but persists, O2 NC 4L. Patient remains in bedside chair. Hard of hearing. Asked me to repeat several times. Her legs remain unelevated. Skin unchanged bilateral lower extremities. Chronic lymphedematous changes, scaling, poor care overall. Using NC 4L, pursed lip breathing. Accessory muscle not used today. Orientation - Oriented x 3, alertBuild and Nutrition-[morbidly obese]General- Patient is not cooperative with the interview and exam. Integumentary: General-No rashes, ulcers or lesions above waist. bilateral UE dry, scaly, thickened. LE lymphedematous changes 3+ PE to bilateral knees. Still unable to evaluate buttock as patient would not stand, would not get into the bed, would not leave bedside chair, would not sit forward to allow me to evaluate. Bilateral LE with chronic lymphedematous changes, chronic stasis, stasis dermatitis, hemosiderin staining. Nails thickened, long and e/o chcf, chronic insufficiency.. DP pulse 1+, PT 1+.Palpation- Normal skin moisture/turgor wrists/hands/arms. thickened/coarse, dry skin beyond knees bilaterally. Skin is warm to touch, appropriate. Capillary refill is normal bilateral Upper and lower extremity. ENMT:Nose and sinus- No sinus tenderness along frontal/maxillary region. External appearance normal and midline.Nares- bilateral quiet airflow, no discharge.Nasal mucosa- No bleeding noted and no ulcerations observed. [place], moist. Turbinates non boggy.Lips-normal color, moist without cracks/lesions Oral Cavity/Palate- hard/soft palate intact without lesions, oral mucosa pink and moist. Dentition assessed [] and discussed appropriate oral care. Tongue normal midline.Oropharynx- no pharyngeal erythema, Uvula midline. No post nasal drip. No exudate.Salivary glands- Non tender to palpation CHEST/LUNG:Inspection- symmetric chest wall no pectus deformity. increased effort, Distant heart sounds. Wheezes, crackles and rhonchi throughout. E/O chronic lung related disease. Accessory muscles utilzed.Palpation- nontender sternum, ribline. No abnormal pulsations.Auscultation- Breath sounds coarse throughout tracheal sounds, bronchial sounds overlying sternum, Bronchovessicular sounds between scapulae posteriorly, vessicular breath sounds heard throughout periphery.Adventitious sounds- wheezes, rales, rhonchi.throughout. Coarse. CARDIOVASCULAR:Carotid artery-normal, no bruits or abnormal pulsations. Jugular vein- no pulsations.Palpation/Percussion- Normal PMI, no palpable thrillAuscultation- Regular rate and rhythm. No murmur noted in sitting, supine positions.Extremities- no digital clubbing, cyanosis, edema, increased warmth. ABDOMEN:Inspection- normal and no visible pulsations. Normal contour. Auscultation- Bowel sounds normal, no abdominal bruits.Palpation/Percussion- soft, non-tender, no rebound tenderness, no rigidity (guarding), no jar tenderness, no masses.Ostomy site RLQ abdomen. Apodaca in place.REMOVED this am. Peripheral Vascular:Upper extremityLeft- Normal temperature with pink nailbeds and no ulcerations.Upper extremity Right-Normal temperature with pink nailbeds and no ulcerations.Lower extremity- coarse, thickened skiin, chronic changes present. Chronic 2+ edema, pitting edema, thickened skin, scaley.Edema- 3+ bialteral LE pitting edema. Musculoskeletal:Generalized-Limited ROM of bilateral shoulders/hips. Limited ambuiation. 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 Limited ROM shoulders, Limited ROM of knees and ankles as well due to chronic changes in skin. Decreased effort. Patient performs minimal activities. Neurological:General- Moves all 4 extremities symmetrically. Symmetrical face and body posture.Cranial nerves- individually evaluated II-XII and intact. PERRLA, Normal EOMI, visual/special senses appear intact, Face is symmetrical and normal sensation/movement, normal tongue, normal strength/posture of neck musculature. Neuropsych:Oriented- Person, place, time. (AAOx3),Mood/affect- Minimally involved. Flat.Speech-Normal speech, normal rate, normal tone,Associations- intact, no SI/HI, no hallucinations, delusions, obsessions.Judgment/insight- Limited. Lymphatic: Head/Neck- normal size and non tender to palpation. Laboratory Last Values WBC 16.60 K/ul (4.6-10.2) H 03/04/21 05:20 RBC 3.65 10^6/ul (4.20-5.40) L 03/04/21 05:20 Hgb 10.4 g/dl (12.0-16.0) L 03/04/21 05:20 Hct 33.7 % (37.0-47.0) L 03/04/21 05:20 MCV 92.3 fl (81.0-99.0) 03/04/21 05:20 MCH 28.5 pg (27.0-31.0) 03/04/21 05:20 MCHC 30.9 (31.8-35.4) L 03/04/21 05:20 RDW Coeff of [place] 15.2 % (11.6-14.8) H 03/04/21 05:20 Plt Count 220 10^3/uL (140-440) 03/04/21 05:20 Immature Gran % (Auto) 1.1 % (0.0-5.0) 03/03/21 12:12 Neut % (Auto) 88.5 % (42.2-75.2) H 03/03/21 12:12 Lymph % (Auto) 5.1 (10.0-50.0) L 03/03/21 12:12 Reynolds % (Auto) 5.1 (0-10) 03/03/21 12:12 Eos % (Auto) 0.1 % (0.0-7.0) 03/03/21 12:12 Baso % (Auto) 0.1 % (0.0-3.0) 03/03/21 12:12 Neut # (Auto) 17.4 K/ul (2.0-6.9) H 03/03/21 12:12 Lymph # (Auto) 1.0 K/uL (0.60-3.4) 03/03/21 12:12 Reynolds # (Auto) 1.0 K/uL (0.4-2.0) 03/03/21 12:12 Eos # (Auto) 0.0 K/ul (0.0-0.7) 03/03/21 12:12 Baso # (Auto) 0.0 K/uL (0-0.2) 03/03/21 12:12 Immature Gran # (Auto) 0.2 (0.0-1.0) 03/03/21 12:12 Neutrophils % (Manual) 87.0 % (42.2-75.2) H 03/04/21 05:20 Band Neutrophils % 3.0 % (0.0-5.0) 03/02/21 05:05 Lymphocytes % (Manual) 12.0 % (10.0-50.0) 03/04/21 05:20 Monocytes % (Manual) 4.0 % (0.0-10.0) 03/02/21 05:05 Eosinophils % (Manual) 1.0 % (0.0-5.0) 03/04/21 05:20 Anisocytosis Not present (NOT PRESENT) 03/04/21 05:20 Puncture Site R rad 03/01/21 09:05 Base Excess 9.1 (-2.0-3.0) H 03/01/21 09:05 O2 Saturation 94.3 % (94-98) 03/01/21 09:05 ABG pH 7.36 (7.35-7.45) 03/01/21 09:05 ABG pCO2 61.0 mmHg (35-45) H 03/01/21 09:05 ABG pO2 75.0 mmHg (85-100) L 03/01/21 09:05 ABG HCO3 34.5 (21-28) H 03/01/21 09:05 ABG Total CO2 36.4 (19-24) H 03/01/21 09:05 Cm Test Y 03/01/21 09:05 Hemoglobin 0.9 (0-1.5) 03/01/21 09:05 Oxyhemoglobin 93.8 % (95-100) L 03/01/21 09:05 Carboxyhemoglobin 2.6 (0.5-1.5) H 03/01/21 09:05 Total Hemoglobin 12.0 g/dl (11.7-17.4) 03/01/21 09:05 O2 Delivery Device Cannula 03/01/21 09:05 Oxygen Liter Flow 4.00 03/01/21 09:05 Sodium 136.7 mmol/L (134.5-145) 03/04/21 05:20 Potassium 3.87 mmol/L (3.5-5.1) 03/04/21 05:20 Chloride 92.5 mmol/L (98-107) L 03/04/21 05:20 Carbon Dioxide 37.3 mmol/L (22-30.0) H 03/04/21 05:20 Anion Gap 10.77 03/04/21 05:20 BUN 36.7 mg/dL (7-17) H 03/04/21 05:20 Creatinine 1.28 mg/dL (0.60-1.30) 03/04/21 05:20 Estimated GFR (MDRD) 41.00 mL/min 03/04/21 05:20 BUN/Creatinine Ratio 28.67 03/04/21 05:20 Glucose 110.7 mg/dL (74-106) H 03/04/21 05:20 Lactic Acid 1.94 mmol/L (0.7-2.1) 03/01/21 10:53 Calcium 9.41 mg/dL (8.4-10.2) 03/04/21 05:20 Magnesium 1.96 mg/dL (1.6-2.3) 03/01/21 09:15 Total Bilirubin 0.40 mg/dL (0.2-1.3) 03/04/21 05:20 AST 30.6 U/L (14-36) 03/04/21 05:20 ALT 18.4 U/L (0-35) 03/04/21 05:20 Alkaline Phosphatase 71.6 U/L (53-141) 03/04/21 05:20 Total Creatine Kinase 118.2 U/L (30-135) 03/01/21 09:15 CK-MB (CK-2) 2.730 ng/ml (0.0-2.38) H 03/01/21 09:15 CK-MB (CK-2) % 2.3000 03/01/21 09:15 NT-Pro-B Natriuret Pep 411.000 pg/mL (0-124) H 03/01/21 09:15 Total Protein 7.20 g/dL (6.3-8.2) 03/04/21 05:20 Albumin 3.76 g/dL (3.5-5.0) 03/04/21 05:20 Globulin 3.44 03/04/21 05:20 Albumin/Globulin Ratio 1.09 03/04/21 05:20 Procalcitonin 2.10 ng/mL (0.09) H 03/01/21 09:15 TSH 1.350 uIU/L (0.465-4.68) 03/01/21 09:15 D-Dimer 1210.64 ng/mL (<500) H 03/01/21 21:30 Urine Color Yellow (YELLOW) 03/01/21 14:10 Urine Clarity Clear (CLEAR) 03/01/21 14:10 Urine pH 7.0 (5-9) 03/01/21 14:10 Ur Specific [place] 1.015 (1.005-1.030) 03/01/21 14:10 Urine Protein Negative (NEGATIVE) 03/01/21 14:10 Urine Glucose (UA) Negative (NEGATIVE) 03/01/21 14:10 Urine Ketones Negative (NEGATIVE) 03/01/21 14:10 Urine Blood 1+ (NEGATIVE) H 03/01/21 14:10 Urine Nitrite Negative (NEGATIVE) 03/01/21 14:10 Urine Bilirubin Negative (NEGATIVE) 03/01/21 14:10 Urine Urobilinogen 0.2 (0.2) 03/01/21 14:10 Ur Leukocyte Esterase Negative (NEGATIVE) 03/01/21 14:10 Urine Microscopic RBC 5-10 (0-2) 03/01/21 14:10 Urine Microscopic WBC 2-5 (0-2) 03/01/21 14:10 Ur Squamous Epith Cells 5-10 (0-5) 03/01/21 14:10 Hyaline Casts 2-5 (NOT PRESENT) 03/01/21 14:10 Urine Mucus 2+ (NOT PRESENT) 03/01/21 14:10 Adenovirus (PCR) Not detected (NOT DETECT) 03/01/21 09:15 B. pertussis DNA (PCR) Not detected (NOT DETECT) 03/01/21 09:15 B.parapertussis DNA PCR Not detected (NOT DETECT) 03/01/21 09:15 C. pneumoniae DNA (PCR) Not detected (NOT DETECT) 03/01/21 09:15 Coronavirus OC43 (PCR) Not detected (NOT DETECT) 03/01/21 09:15 Coronavirus HKU1 (PCR) Not detected (NOT DETECT) 03/01/21 09:15 Coronavirus 229E (PCR) Not detected (NOT DETECT) 03/01/21 09:15 Coronavirus NL63 (PCR) Not detected (NOT DETECT) 03/01/21 09:15 Human Metapneumovir PCR Not detected (NOT DETECT) 03/01/21 09:15 Influenza Type A (PCR) Not detected (NOT DETECT) 03/01/21 09:15 Influenza B (RT-PCR) Not detected (NOT DETECT) 03/01/21 09:15 M. pneumoniae (PCR) Not detected (NOT DETECT) 03/01/21 09:15 Parainfluenza 1 (PCR) Not detected (NOT DETECT) 03/01/21 09:15 Parainfluenza 2 (PCR) Not detected (NOT DETECT) 03/01/21 09:15 Parainfluenza 3 (PCR) Not detected (NOT DETECT) 03/01/21 09:15 Parainfluenza 4 (PCR) Detected (NOT DETECT) H 03/01/21 09:15 RSV (PCR) Not detected (NOT DETECT) 03/01/21 09:15 Entero/Rhino (PCR) Not detected (NOT DETECT) 03/01/21 09:15 SARS-CoV-2 (PCR) Not detected (NOT DETECT) 03/01/21 09:15 (1) Pneumonia: Status: Acute Code(s): J18.9 - Pneumonia, unspecified organism SNOMED Code(s): 153282005 (2) Pseudomonas infection: Status: Acute Code(s): A49.8 - Other bacterial infections of unspecified site SNOMED Code(s): 55336125 (3) Boil of buttock: Status: Acute Code(s): L02.32 - Furuncle of buttock SNOMED Code(s): 86243728 (4) Leukocytosis: Status: Acute Code(s): D72.829 - Elevated white blood cell count, unspecified SNOMED Code(s): 162909547 (5) SIRS (systemic inflammatory response syndrome): Status: Acute Code(s): R65.10 - Systemic inflammatory response syndrome (SIRS) of non-infectious origin without acute organ dysfunction SNOMED Code(s): 442292217 (6) Body mass index (BMI) of 40.1 to 44.9 in adult: Status: Acute Code(s): Z68.41 - Body mass index [BMI] 40.0-44.9, adult SNOMED Code(s): 881479347 (7) Abscess of buttock: Status: Acute Code(s): L02.31 - Cutaneous abscess of buttock SNOMED Code(s): 68706823 (8) Anemia: Status: Acute Code(s): D64.9 - Anemia, unspecified SNOMED Code(s): 396520405 (9) Hyponatremia: Status: Acute Code(s): E87.1 - Hypo-osmolality and hyponatremia SNOMED Code(s): 91410115 (10) Hyperglycemia: Status: Acute Code(s): R73.9 - Hyperglycemia, unspecified SNOMED Code(s): 48682518 (11) Elevated d-dimer: Status: Acute Code(s): R79.89 - Other specified abnormal findings of blood chemistry SNOMED Code(s): 311389100 (12) Acquired hypothyroidism: Status: Acute Code(s): E03.9 - Hypothyroidism, unspecified SNOMED Code(s): 300524424 (13) Venous stasis: Status: Acute Code(s): I87.8 - Other specified disorders of veins SNOMED Code(s): 28030117 (14) Hyperlipidemia: Status: Acute Code(s): E78.5 - Hyperlipidemia, unspecified SNOMED Code(s): 56134729 (15) Hypertension, essential, benign: Status: Acute Code(s): I10 - Essential (primary) hypertension SNOMED Code(s): 7269209 (16) Hypothyroidism: Status: Acute Code(s): E03.9 - Hypothyroidism, unspecified SNOMED Code(s): 13401577 (17) Electronic cigarette use: Status: Acute Code(s): Z78.9 - Other specified health status SNOMED Code(s): 165990433 Plan: Pneumonia/SIRS/Elevated Procalcitonin/History of COPD: Minimal change from yesterday. The patient has continued to decline many aspects of her care. We discussed getting a Doppler of her lower extremities did not want to do that. We discussed getting a VQ scan she did not want to do that. I discussed there could be a clot and she said she did not want to do any more imaging. She is aware she was able to report to me that she understands there is a risk. I di scussed the case previously with radiology team and they said that there is no evidence of large vessel pulmonary emboli. Current plan is to finish antibiotics today and tomorrow and discharged to short-term nursing facility. Patient did not want to use incentive spirometer. Patient did not want to work with physical therapy. Patient did not want to get out of the bedside chair. Patient did not want to elevate the legs. Patient has denied labs. She notes nothing tastes good. She has a history of Pseudomonas and I do want to finish 5 days of cefepime to cover. We will finish a total of 7 days of Levaquin to cover her for the buttock abscess as well as pneumonia. Blood cultures negative to date. Sputum cultures have not been collected. - Admit to inpatient status - Telemetery - am cbc/cmp - F/U with sputum and blood cultures. - Colostomy care - DASH diet encouraged. - OOB, incentive spirometry - Albuterol q 4 hours prn - Lovenox 40 mg subcutaneously daily for DVT Prophy -Continue budesonide Po medication. Continue Mucinex twice daily Buttock boil:E. Coli.. Levaquin sensitive. We will finish 7 days levaquin. History of Pseudomonas. Imaging did not show any concerning process. No further/obvious drainage. -Continue to monitor Antibiotics as listed Venous stasis/stasis dermatitis/lymphedema: Just finished a round of Levaquin prior to hospital admit. I have continued another round of Levaquin. We will continue to follow-up with patient. At present legs are chronically edematous, chronically thickened scales and she has evidence of chronic lymphedema. I do not suspect any secondary infection. We will add some Bactroban to the legs. We will continue try to keep the legs elevated. History of Pseudomonas skin infection. Cefepime added. There are no open areas on the legs to culture. Legs are chronically poor. This is worsened by her own lack of ambulation, and involvement in care. Leukocytosis:Improving. I believe a peripheral smear and possibly flow cytometry may be beneficial to the patient as an outpatient. Etiology unknown. This may be a result of chronic venous stasis and chronic skin changes of the lower extremities.CBC down to 16..60 on 03/04/21. - Monitor CBC CHF:Limit fluids via IV. We will monitor fluids and daily weights. Hypokalemia:We will continue to monitor. K+cl- 10meq BID w/meals. Stable at present monitor. 3.87 today - Daily CMP BMI 42.4:Discussed the federal guidelines suggest a healthy goal BMI of 18.5- 24.9 for people 18 65 and 23-30 for people age 65 and older. Overweight is considered BMI 25-30, Obesity 30-40 and Morbid obesity is defined as >100 lb overweight or BMI >40. With a BMI above goal, it is recommended to utilize a diet/exercise program to get back into the appropriate range. Consider referral to welfare interviewer. For BMI >40 consider referral to bariatrics. If not already monitoring intake. I would recommend at least to keep a food diary. Document everything that is consumed into a food diary. Studies have shown that patients can lose up to 2x the weight by keeping track of foods. Offered handout on weight loss techniques. Apps that may be of benefit include [employer], Lose it. Regular exercise encouraged. Start with walking 5-10 minutes at a pace that is difficult to carry a conversation. - F/U as outpatient Anemia: Normocytic anemia. 10.4 hgb mcv 92.3. We will continue to monitor. - Daily CBC - Monitor for worsening. Hyponatremia: Patient had a mild hyponatremia. Resolved on 03/03/21. Sodium 135.8 and is 136.7 today. <RESOLVED> MONITOR We will monitor with daily CMP. - CMP daily. Hyperglycemia:Sugars <126 fasting <200 random. MOnitor w/ CMP. Goal <150. - Monitor CMP daily. Depression/anxeity:Continue home medications to include Prozac 40 mg daily. Continue Atarax at bedtime. Continue atarax once daily for panic/anxiety. HLD: Patient is not currently on a statin. We will address this as an outpatient. Discussed again today, declined. Essential HTN: Chronic/stable at present. Goal <140/90. NO changes for now, monitor. Acquired hypothyroidism: Most recent TSH 1.350 normal. Goal TSH for patient 1- 3. We will continue home medications levothyroxine 75 mcg daily. Diet:Cardiac 1800kcl DASH DVT Prophy:40mg subcut lovenox. Nicotine dependence/Vaping: Tobacco Cessation discussed today for another 2 minutes. We reviewed lifestyle choices and discussed quitting. Ready to quit status discussed. The risks and hazards of continued tobacco abuse were discussed with the patient today and total tobacco cessation as recommended. It was clearly and unambiguously explained that continued tobacco usage will adversely affect overall morbidity and mortality of the patient. Patient was informed that tobacco use can lead to numerous cancers, worsening of cardiovascular and pulmonary systems and that lung damage is often permanent and irreversible. I advised the patient to inform me if any further assistance is requested, as we can offer counseling services, nicotine replacement inhaled, patch, lozenge, gum, or prescription medications to include Chantix or Wellbutrin for assistance. I will reassess the interest in tobacco cessation at the next and all subsequent visit. - Nicotine d/w patient DECLINE (no patches, no gum, no wellbutrin, no chantix) Disposition:Expected length of stay 24 hours. Patient has bilateral pneumonia and buttock abscess. There are no sputum cultures, patient is not providing any. BC negative x 4 days. Buttock drainage resolved. D-dimer elevated, declined CTA again today and doppler LE. Declined VQ 03/05/21. The patient is expected to stay until abx complete tomorroww. Change to levaquin PO and complete 2 more days. We will continue to focus on overall care despite patient not involved/active with her own care. Patient has numerous medical problems that need to be addressed as an outpatient. 35 minutes spent rounding with patient today, d/w nursing, case management, reviewed labs, imaging, telemetry, and d/w patient. Not including documentation time.
[2021-03-04] MEDS: LEVAQUIN 750 MG/150 ML D5W 750 MG/150 ML BAG IV SCH (09:50)
[2021-03-04] MEDS: MULTIVITAMIN TABLET PO SCH (09:55)
[2021-03-04] MEDS: PROZAC PO SCH (09:55)
[2021-03-04] MEDS: BACTROBAN TP SCH (09:55)
[2021-03-04] MEDS: TOPROL XL PO SCH (09:55)
[2021-03-04] MEDS: VITAMIN D PO SCH (09:57)
[2021-03-04] MEDS: MICRO-K CAP PO SCH ×2 (09:58→17:37)
[2021-03-04] MEDS: SYMBICORT 160-4.5 MCG INHALER IH SCH ×2 (09:58→20:47)
[2021-03-04] MEDS: MUCINEX PO SCH ×2 (10:02→20:47)
[2021-03-04] MEDS: LOVENOX SUBCUT SCH (10:03)
[2021-03-04] MEDS: ATARAX PO PRN (14:33)
[2021-03-04] MEDS: ATARAX PO SCH (20:47)
[2021-03-05] MEDS: MAXIPIME 2 GM/50 ML D5W 2 GM/50 ML BAG IV SCH ×3 (04:35→16:52)
[2021-03-05] MEDS: ATROVENT HFA INHALER (PER PUFF-WITH SPACER) IH SCH ×2 (05:20→11:05)
[2021-03-05] MEDS: LASIX TAB PO SCH (06:10)
[2021-03-05] MEDS: SYNTHROID PO SCH (06:10)
[2021-03-05] MEDS: PROZAC PO SCH (09:35)
[2021-03-05] MEDS: LEVAQUIN 750 MG/150 ML D5W 750 MG/150 ML BAG IV SCH (09:35)
[2021-03-05] MEDS: VITAMIN D PO SCH (09:35)
[2021-03-05] MEDS: TOPROL XL PO SCH (09:35)
[2021-03-05] MEDS: MICRO-K CAP PO SCH (09:36)
[2021-03-05] MEDS: MULTIVITAMIN TABLET PO SCH (09:36)
[2021-03-05] MEDS: MUCINEX PO SCH (09:36)
[2021-03-05] MEDS: LOVENOX SUBCUT SCH (09:37)
[2021-03-05] MEDS: SYMBICORT 160-4.5 MCG INHALER IH SCH (09:37)
[2021-03-05 10:36] LABS: BORDETELLA PARAPERTUSSIS (PCR) NOT DETECTED (NOT DETECT); BORDETELLA PERTUSSIS (PCR) NOT DETECTED (NOT DETECT); CHLAMYDIA PNEUMONIAE (PCR) NOT DETECTED (NOT DETECT); CORONAVIRUS 229E (PCR) NOT DETECTED (NOT DETECT); CORONAVIRUS HKU1 (PCR) NOT DETECTED (NOT DETECT); CORONAVIRUS NL63 (PCR) NOT DETECTED (NOT DETECT); CORONAVIRUS OC43 (PCR) NOT DETECTED (NOT DETECT); HUMAN METAPNEUMOVIRUS (PCR) NOT DETECTED (NOT DETECT); HUMAN RHINOVIRUS/ENTEROV (PCR) NOT DETECTED (NOT DETECT); INFLUENZA B (PCR) NOT DETECTED (NOT DETECT); MYCOPLASMA PNEUMONIAE (PCR) NOT DETECTED (NOT DETECT); PARAINFLUENZA VIRUS 1 (PCR) NOT DETECTED (NOT DETECT); PARAINFLUENZA VIRUS 2 (PCR) NOT DETECTED (NOT DETECT); PARAINFLUENZA VIRUS 3 (PCR) NOT DETECTED (NOT DETECT); RESPIRATORY SYNCYTIAL V (PCR) NOT DETECTED (NOT DETECT); SARS_COV_2 (PCR) NOT DETECTED (NOT DETECT)
[2021-03-05 11:23] LABS: ADENOVIRUS (PCR) NOT DETECTED (NOT DETECT); PARAINFLUENZA VIRUS 4 (PCR) DETECTED (NOT DETECT)
[2021-03-05] MEDS: ATARAX PO PRN (11:48)
[2021-03-05 14:17] VITALS: BP 118/67; TEMP 97.8
--- NOTE | 2021-03-05 16:06 | PCM.DC ---
Final Diagnosis: Bilateral Pneumonia/SIRS Parainfluenza Virus 4 (PCR): COVID NEGATIVE Weakness/Unable to care for self. Buttock Abscess Chronic Venous Stasis/dermatitis Essential HTN Hyperlipidemia BMI 42 Elevated Ddimer: Declined CTA chest Acquired hypothyroid History of CHF Covid Vaccination decline History of hyponatremia Anemia (Normocytic) Non compliance/Lack of cooperation with self care. Vape Pen removed from patient room. Deconditioning Gastrostomy tube status. (1) Pneumonia: Status: Acute Code(s): J18.9 - Pneumonia, unspecified organism SNOMED Code(s): 506046561 (2) Pseudomonas infection: Status: Acute Code(s): A49.8 - Other bacterial infections of unspecified site SNOMED Code(s): 04888655 (3) Stasis dermatitis of both legs: Status: Inactive Code(s): I87.2 - Venous insufficiency (chronic) (peripheral) SNOMED Code(s): 83533964 (4) Current every day nicotine vaping: Code(s): Z72.0 - Tobacco use SNOMED Code(s): 417073424 (5) Chronic obstructive pulmonary disease: Code(s): J44.9 - Chronic obstructive pulmonary disease, unspecified SNOMED Code(s): 50364117 (6) Generalized anxiety disorder: Code(s): F41.1 - Generalized anxiety disorder SNOMED Code(s): 27010920 (7) Major depressive disorder, recurrent, unspecified: Code(s): F33.9 - Major depressive disorder, recurrent, unspecified SNOMED Code(s): 40307418 Qualifiers: Active/Remission status: remission status unspecified Qualified Code(s): F33.9 - Major depressive disorder, recurrent, unspecified (8) Acquired hypothyroidism: Code(s): E03.9 - Hypothyroidism, unspecified SNOMED Code(s): 862489644 (9) Generalized edema: Code(s): R60.1 - Generalized edema SNOMED Code(s): 857168080 (10) Body mass index (BMI) of 40.1 to 44.9 in adult: Status: Inactive Code(s): Z68.41 - Body mass index [BMI] 40.0-44.9, adult SNOMED Code(s): 123942459 (11) Chronic respiratory failure with hypoxia, on home oxygen therapy: Code(s): J96.11 - Chronic respiratory failure with hypoxia; Z99.81 - Dependence on supplemental oxygen SNOMED Code(s): 051254698 (12) Colostomy present on admission: Code(s): Z93.3 - Colostomy status SNOMED Code(s): 625092246 (13) Boil of buttock: Status: Acute Code(s): L02.32 - Furuncle of buttock SNOMED Code(s): 30966234 (14) Leukocytosis: Status: Acute Code(s): D72.829 - Elevated white blood cell count, unspecified SNOMED Code(s): 322999072 (15) Hypertension, essential, benign: Status: Acute Code(s): I10 - Essential (primary) hypertension SNOMED Code(s): 3665409 Reason for Hospitalization: Bilateral Pneumonia/Weakness. Prognosis/Condition at Discharge: Guarded/poor. Poor involvement with own care. Limited ambulation/mobility. Medications at Discharge: Ambulatory Orders Medication Instructions Recorded nystatin 100,000 unit/gram topical 1 applic TOPICAL TID PRN #60 gm 02/27/20 powder (Nystop) guaifenesin 600 mg tablet, 600 mg PO BID #14 tab 04/28/20 extended release 12 hr (Mucinex) cholecalciferol (vitamin D3) 25 25 mcg PO QDAY 07/30/20 mcg (1,000 unit) capsule diphenhydramine HCl 25 mg capsule 25 mg PO Q6H PRN 09/10/20 (Benadryl) multivitamin 1 tab PO QAM 09/10/20 potassium chloride 10 mEq See Rx Instructions .ROUTE 09/24/20 tablet,extended release .COMPLEX #180 tab hydroxyzine HCl 50 mg tablet 50 mg PO QHS #90 tab 10/19/20 fluoxetine 40 mg capsule (Prozac) 40 mg PO QDAY #90 cap 12/01/20 mupirocin 2 % topical ointment 1 applic TOPICAL BID #22 g 01/22/21 furosemide 20 mg tablet 20 mg PO QAM #90 tab 01/25/21 meclizine 25 mg tablet 25 mg PO BID PRN #60 tab 01/25/21 budesonide-formoterol HFA 160 2 puff INHALATION BID #10.2 g 01/27/21 mcg-4.5 mcg/actuation aerosol inhaler (Symbicort) metoprolol succinate 25 mg 25 mg PO QDAY #90 tab 02/08/21 tablet,extended release 24 hr albuterol sulfate 90 mcg/actuation 2 puff INHALATION Q4-6H PRN #18 g 02/09/21 aerosol inhaler (Ventolin HFA) levothyroxine 75 mcg capsule 75 mcg PO QDAY #90 cap 02/12/21 hydroxyzine HCl 25 mg tablet 25 mg PO DAILY PRN #14 tab 03/05/21 ipratropium bromide 17 2 puff INHALATION Q6H #12.9 g 03/05/21 mcg/actuation HFA aerosol inhaler (Atrovent HFA) levofloxacin 750 mg tablet 750 mg PO DAILY 2 Days #2 tab 03/05/21 Lab/Diagnostics: Laboratory Last Values WBC 16.60 K/ul (4.6-10.2) H 03/04/21 05:20 RBC 3.65 10^6/ul (4.20-5.40) L 03/04/21 05:20 Hgb 10.4 g/dl (12.0-16.0) L 03/04/21 05:20 Hct 33.7 % (37.0-47.0) L 03/04/21 05:20 MCV 92.3 fl (81.0-99.0) 03/04/21 05:20 MCH 28.5 pg (27.0-31.0) 03/04/21 05:20 MCHC 30.9 (31.8-35.4) L 03/04/21 05:20 RDW Coeff of [place] 15.2 % (11.6-14.8) H 03/04/21 05:20 Plt Count 220 10^3/uL (140-440) 03/04/21 05:20 Immature Gran % (Auto) 1.1 % (0.0-5.0) 03/03/21 12:12 Neut % (Auto) 88.5 % (42.2-75.2) H 03/03/21 12:12 Lymph % (Auto) 5.1 (10.0-50.0) L 03/03/21 12:12 [place] % (Auto) 5.1 (0-10) 03/03/21 12:12 Eos % (Auto) 0.1 % (0.0-7.0) 03/03/21 12:12 Baso % (Auto) 0.1 % (0.0-3.0) 03/03/21 12:12 Neut # (Auto) 17.4 K/ul (2.0-6.9) H 03/03/21 12:12 Lymph # (Auto) 1.0 K/uL (0.60-3.4) 03/03/21 12:12 [place] # (Auto) 1.0 K/uL (0.4-2.0) 03/03/21 12:12 Eos # (Auto) 0.0 K/ul (0.0-0.7) 03/03/21 12:12 Baso # (Auto) 0.0 K/uL (0-0.2) 03/03/21 12:12 Immature Gran # (Auto) 0.2 (0.0-1.0) 03/03/21 12:12 Neutrophils % (Manual) 87.0 % (42.2-75.2) H 03/04/21 05:20 Band Neutrophils % 3.0 % (0.0-5.0) 03/02/21 05:05 Lymphocytes % (Manual) 12.0 % (10.0-50.0) 03/04/21 05:20 Monocytes % (Manual) 4.0 % (0.0-10.0) 03/02/21 05:05 Eosinophils % (Manual) 1.0 % (0.0-5.0) 03/04/21 05:20 Anisocytosis Not present (NOT PRESENT) 03/04/21 05:20 Puncture Site R rad 03/01/21 09:05 Base Excess 9.1 (-2.0-3.0) H 03/01/21 09:05 O2 Saturation 94.3 % (94-98) 03/01/21 09:05 ABG pH 7.36 (7.35-7.45) 03/01/21 09:05 ABG pCO2 61.0 mmHg (35-45) H 03/01/21 09:05 ABG pO2 75.0 mmHg (85-100) L 03/01/21 09:05 ABG HCO3 34.5 (21-28) H 03/01/21 09:05 ABG Total CO2 36.4 (19-24) H 03/01/21 09:05 Cm Test Y 03/01/21 09:05 Hemoglobin 0.9 (0-1.5) 03/01/21 09:05 Oxyhemoglobin 93.8 % (95-100) L 03/01/21 09:05 Carboxyhemoglobin 2.6 (0.5-1.5) H 03/01/21 09:05 Total Hemoglobin 12.0 g/dl (11.7-17.4) 03/01/21 09:05 O2 Delivery Device Cannula 03/01/21 09:05 Oxygen Liter Flow 4.00 03/01/21 09:05 Sodium 136.7 mmol/L (134.5-145) 03/04/21 05:20 Potassium 3.87 mmol/L (3.5-5.1) 03/04/21 05:20 Chloride 92.5 mmol/L (98-107) L 03/04/21 05:20 Carbon Dioxide 37.3 mmol/L (22-30.0) H 03/04/21 05:20 Anion Gap 10.77 03/04/21 05:20 BUN 36.7 mg/dL (7-17) H 03/04/21 05:20 Creatinine 1.28 mg/dL (0.60-1.30) 03/04/21 05:20 Estimated GFR (MDRD) 41.00 mL/min 03/04/21 05:20 BUN/Creatinine Ratio 28.67 03/04/21 05:20 Glucose 110.7 mg/dL (74-106) H 03/04/21 05:20 Lactic Acid 1.94 mmol/L (0.7-2.1) 03/01/21 10:53 Calcium 9.41 mg/dL (8.4-10.2) 03/04/21 05:20 Magnesium 1.96 mg/dL (1.6-2.3) 03/01/21 09:15 Total Bilirubin 0.40 mg/dL (0.2-1.3) 03/04/21 05:20 AST 30.6 U/L (14-36) 03/04/21 05:20 ALT 18.4 U/L (0-35) 03/04/21 05:20 Alkaline Phosphatase 71.6 U/L (53-141) 03/04/21 05:20 Total Creatine Kinase 118.2 U/L (30-135) 03/01/21 09:15 CK-MB (CK-2) 2.730 ng/ml (0.0-2.38) H 03/01/21 09:15 CK-MB (CK-2) % 2.3000 03/01/21 09:15 NT-Pro-B Natriuret Pep 411.000 pg/mL (0-124) H 03/01/21 09:15 Total Protein 7.20 g/dL (6.3-8.2) 03/04/21 05:20 Albumin 3.76 g/dL (3.5-5.0) 03/04/21 05:20 Globulin 3.44 03/04/21 05:20 Albumin/Globulin Ratio 1.09 03/04/21 05:20 Procalcitonin 2.10 ng/mL (0.09) H 03/01/21 09:15 TSH 1.350 uIU/L (0.465-4.68) 03/01/21 09:15 D-Dimer 1210.64 ng/mL (<500) H 03/01/21 21:30 Urine Color Yellow (YELLOW) 03/01/21 14:10 Urine Clarity Clear (CLEAR) 03/01/21 14:10 Urine pH 7.0 (5-9) 03/01/21 14:10 Ur Specific [place] 1.015 (1.005-1.030) 03/01/21 14:10 Urine Protein Negative (NEGATIVE) 03/01/21 14:10 Urine Glucose (UA) Negative (NEGATIVE) 03/01/21 14:10 Urine Ketones Negative (NEGATIVE) 03/01/21 14:10 Urine Blood 1+ (NEGATIVE) H 03/01/21 14:10 Urine Nitrite Negative (NEGATIVE) 03/01/21 14:10 Urine Bilirubin Negative (NEGATIVE) 03/01/21 14:10 Urine Urobilinogen 0.2 (0.2) 03/01/21 14:10 Ur Leukocyte Esterase Negative (NEGATIVE) 03/01/21 14:10 Urine Microscopic RBC 5-10 (0-2) 03/01/21 14:10 Urine Microscopic WBC 2-5 (0-2) 03/01/21 14:10 Ur Squamous Epith Cells 5-10 (0-5) 03/01/21 14:10 Hyaline Casts 2-5 (NOT PRESENT) 03/01/21 14:10 Urine Mucus 2+ (NOT PRESENT) 03/01/21 14:10 Adenovirus (PCR) Not detected (NOT DETECT) 03/05/21 10:25 B. pertussis DNA (PCR) Not detected (NOT DETECT) 03/05/21 10:25 B.parapertussis DNA PCR Not detected (NOT DETECT) 03/05/21 10:25 C. pneumoniae DNA (PCR) Not detected (NOT DETECT) 03/05/21 10:25 Coronavirus OC43 (PCR) Not detected (NOT DETECT) 03/05/21 10:25 Coronavirus HKU1 (PCR) Not detected (NOT DETECT) 03/05/21 10:25 Coronavirus 229E (PCR) Not detected (NOT DETECT) 03/05/21 10:25 Coronavirus NL63 (PCR) Not detected (NOT DETECT) 03/05/21 10:25 Human Metapneumovir PCR Not detected (NOT DETECT) 03/05/21 10:25 Influenza Type A (PCR) Not detected (NOT DETECT) 03/05/21 10:25 Influenza B (RT-PCR) Not detected (NOT DETECT) 03/05/21 10:25 M. pneumoniae (PCR) Not detected (NOT DETECT) 03/05/21 10:25 Parainfluenza 1 (PCR) Not detected (NOT DETECT) 03/05/21 10:25 Parainfluenza 2 (PCR) Not detected (NOT DETECT) 03/05/21 10:25 Parainfluenza 3 (PCR) Not detected (NOT DETECT) 03/05/21 10:25 Parainfluenza 4 (PCR) Detected (NOT DETECT) H 03/05/21 10:25 RSV (PCR) Not detected (NOT DETECT) 03/05/21 10:25 Entero/Rhino (PCR) Not detected (NOT DETECT) 03/05/21 10:25 SARS-CoV-2 (PCR) Not detected (NOT DETECT) 03/05/21 10:25 Buttock Culture: E. Coli. Sensitive to levaquin. Blood culture negative x [address] CHEST 03/01/21 w/ contrast. IMPRESSION: Extensive bilateral pneumonia, greatest in the right lower lobe. Follow up within 3 months recommended for reassessment. CT abd/pelvis w/ contrast 03/01/21 IMPRESSION: 1. There is no visualized abscess in the abdomen, pelvis or peroneal region. There is mild skin thickening in the region of the rectum that may represent a component of mild inflammation. 2. Lower lobe ground-glass and consolidations concerning for pneumonia. 3. Right colostomy with herniation of bowel and fat at the ostomy site. CXR 03/01/21: IMPRESSION: Worsening bilateral lower lobe ground-glass opacities suggestive of worsening edema versus infection. Education Provided to Patient and Family: 1. Bilateral Pneumonia 2. Abx - Levaquin - Cefepime 3. Avoidance of Vaping 4. BMI/weight loss 5. Medicatoin overview. 6. Encouraged ambulation/activity. Encouraged cooperation with care and participation in care. Follow-ups: D/C Transfer to [facility]. Discharge Disposition: SNF Hospital Course: 70-year-old female hospital day #5 admitted on March 01, [address] William Zepeda. The patient was noted to have bilateral pneumonia, chronic venous stasis, history of Pseudomonas infection, abscess of the buttock, leukocytosis chronic, SIRS, body mass index greater than 40, hyponatremia, hyperglycemia, elevated D-dimer, acquired hypothyroidism, hyperlipidemia, hypertension and chronic use electronic cigarettes. Blood cultures were collected, sputum culture was ordered but never collected. She was started on Lovenox for DVT prophylaxis. Due to history of Pseudomonas cefepime 2 g every 8 hours and Levaquin 750 p.o. daily was started to cover her for her buttock wound as well as pneumonia. She was noted to have chronic venous stasis of bilateral lower extremities, lymphedematous changes. Chronic leukocytosis etiol ogy unknown. History of CHF. She is on Lasix and weights were monitored. Chronic anemia stable, chronic hyponatremia stable, hyperglycemia stable, nicotine use with a vape being found during hospital stay. CT of chest w/ contrast done 03/01/21 showed CAP bilaterally, abdomen/pelviis showed no source for the infection. She was noted to have a +Ddimer on 03/02. Refused CTA. I contacted and d/w the radiology team and they felt no PE was present. She declined doppler LE. Declined getting into bed, declined CTA, declined labs several times. Declined to get out of WC. Declined phys/occ therapy. The patient declined CT PE protocol on March 02, declines to get in bed throughout the entire hospital stay, declined daily weights, declined labs several times. We had a long discussion on March 04 about patient's willingness to cooperate with her own care. She declined many of the steps and procedures tests and imaging that we needed. She has been saline locked and she has asked that her IV be removed. We discussed that we needed IV in place for abx as she has been a difficult stick. Ultimately she was adamant and one of the 2 IVs were removed (right hand). She did not want to go home, she did not want to go to short- term nursing facility. Ultimately she did agree to go to short-term nursing facility. I noted that her unwillingness to cooperate with our imaging and labs , fluids. Daily weight, getting out of the wheelchair meant that she could go home. She could get the same lack of services at her own home, if she was not going to use any healthcare services. Patient and nursing, as well as patient and case management, have discussed similar aspects of the patient's health. The patient does not want to cooperate or participate in any strenuous activity. She does decline physical therapy as well. On day of discharge she remained afebrile, heart rate 54 through 70 blood pressure 102/53, 125/71, 127/71, 120/68. Respiratory rate of 1822. Oxygen saturation 96 to 98% on 4 L nasal cannula. Patient refused telemetry after 7 AM yesterday morning. Again patient is refusing nearly every aspect of care. She does not feel ready to go home but she refuses to participate in her own healthcare. Decreased urine output yesterday with 750 mils total output. She does have a catheter in place which will be removed. This was not present before hospitalization. She liked it because she no longer had to actually get out of bed. She is already had 325 mils out this morning which was half of what she had yesterday. Overnight nursing notes reviewed. As of 7:00 yesterday patient refused to get out of the wheelchair that we used to weigh her. Urine remains clear. At 1426 therapy and to see the patient she agreed to getting back into the chair encouraged to put feet up but refused skin assessed no open areas all Monitored continue at 1435 patient up to chair with therapy requested Atarax to calm down. At 2009 patient sitting up in recliner feeling tired and weak. Oxygen remains in place. Lungs diminished and coarse with rhonchi noted which is unchanged from my previous evaluation. Shortness of breath at rest worsens with any exertion 3+ edema bilateral lower extremity chronic purple- tinged thick scaly legs in dependent position patient will not elevate them because she says it hurts her breathing. Offered to assist patient to bed pat ient refused. More comfortable in the chair. 629 this morning recliner all night attempted to elevate legs and patient refused to put them back down. Patient did not want to get back into bed. Patient weight is actually down from 235 noted at admission. She is down 6 pounds. It appears her baseline ranges from 221 April 2020 all up to 242. She appears to be within a reasonable range. There are no new labs as of this morning. We will finish patient's IV antibiotics today. Today will be cefepime day 5 and Levaquin we will continue 2 more days. The goal in the [place] [facility] is to encourage strength ambulation. We will remove the [place] as she does not require this. It is a convenience to her but not a requirement. Gastrostomy site appears to be intact and stable. Upon evaluation this morning patient was asleep laying across her bedside table sitting in recliner. She was easily awoken to name and then noted she could not understand me. She would not understand me without me dropping my mask. I did lower the mask and talk to her today. She noted she did not refuse labs this morning but they could not get any. She did transfer chairs from the wheelchair to the chair with therapy yesterday else no other therapy so far. Patient is ready for discharge. Plan: 1. D/C to [facility]. 2. Cefepime 2 g now repeat dose at noon-1:00. 1 dose of Cefepine at [facility] this evening. Today is the last dose of cefepime. 3.Levaquin 750 IV last dose today. Number 2 days Levaquin 750 p.o. to start 03/06/21 4.Apodaca to be removed 5.Transfer to [facility] for strengthening. Expected length of stay 1 to 2 weeks. Patient is aware she will be on quarantine due to lack of vaccination status. OT/PT/ST Eval and treat. 6.CBC/CMP in 48 hours then q week. 7. Resume home meds 8. Avoidance of tobacco 9. Encouraged activity. Vital Signs - 24 hr 03/04/21 20:00 03/04/21 21:35 03/05/21 05:41 Temperature 98 F 98.0 F Pulse Rate 69 70 Respiratory Rate 21 20 20 Blood Pressure 127/71 120/68 O2 Sat by Pulse Oximetry 96 96 95 03/05/21 05:54 03/05/21 10:00 03/05/21 14:00 Temperature 97.6 F 97.8 F Pulse Rate 76 83 Respiratory Rate 20 20 Blood Pressure 103/61 118/67 O2 Sat by Pulse Oximetry 95 95 96 Constitutional:Appearance-Respiratory distress mild to moderate persists, O2 NC 4L. Patient remains in bedside chair. Asleep and laying on table as I walked in. Hard of hearing. Her legs are not elevated. Skin unchanged bilateral lower extremities. Chronic lymphedematous changes, scaling, poor care overall. Using NC 4L, pursed lip breathing. Accessory muscle not used today. Orientation- Oriented x 3, alertBuild and Nutrition-[morbidly obese]General- Patient is not cooperative with the interview and exam. Integumentary: General-No rashes, ulcers or lesions above waist. bilateral UE dry, scaly, thickened. LE lymphedematous changes 3+ PE to bilateral knees. Still unable to evaluate buttock as patient would not stand, would not get into the bed, would not leave bedside chair, would not sit forward to allow me to evaluate. Bilateral LE with chronic lymphedematous changes, chronic stasis, stasis dermatitis, hemosiderin staining. 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 DP pulse 1+, PT 1+.Palpation- Normal skin moisture/turgor wrists/hands/arms. thickened/coarse, dry skin beyond knees bilaterally. Skin is warm to touch, appropriate. Capillary refill is normal bilateral Upper and lower extremity. Head/Neck:Head- normocephalic and atraumatic.Neck- without visible/palpable lumps or pulsations.Palpation- No bony tenderness about head/neck along frontal, occipital, temporal, parietal, mastoid, jawline, zygoma, orbit or any other location. NO temporal artery tenderness. No TMJ tenderness. Neck Supple. Eye:Bilaterally PERRLA, EOMI. No discharge. Upper and lower eyelids are normal. Sclera/conjunctiva normal without discharge. Cornea is normal and clear. Lens is normal. Eyeball appears normal. No ciliary flushing, no conjunctival injection. ENMT:Nose and sinus- No sinus tenderness along frontal/maxillary region. External appearance normal and midline.Nares- bilateral quiet airflow, no discharge.Nasal mucosa- No bleeding noted and no ulcerations observed. [place], moist. Turbinates non boggy.Lips-normal color, moist without cracks/lesions Oral Cavity/Palate- hard/soft palate intact without lesions, oral mucosa pink and moist. Dentition assessed [] and discussed appropriate oral care. Tongue normal midline.Oropharynx- no pharyngeal erythema, Uvula midline. No post nasal drip. No exudate.Salivary glands- Non tender to palpation CHEST/LUNG:Inspection- symmetric chest wall no pectus deformity. increased effort, Distant heart sounds. Wheezes, crackles and rhonchi throughout. E/O chronic lung related disease. Accessory muscles utilzed.Palpation- nontender sternum, ribline. No abnormal pulsations.Auscultation- Breath sounds coarse throughout tracheal sounds, bronchial sounds overlying sternum, Bronchovessicular sounds between scapulae posteriorly, vessicular breath sounds heard throughout periphery.Adventitious sounds- wheezes, rales, rhonchi.throughout. Coarse. CARDIOVASCULAR:Carotid artery-normal, no bruits or abnormal pulsations. Jugular vein- no pulsations.Palpation/Percussion- Normal PMI, no palpable thrillAuscultation- Regular rate and rhythm. No murmur noted in sitting, supine positions.Extremities- no digital clubbing, cyanosis, edema, increased warmth. ABDOMEN:Inspection- normal and no visible pulsations. Normal contour. Auscultation- Bowel sounds normal, no abdominal bruits.Palpation/Percussion- soft, non-tender, no rebound tenderness, no rigidity (guarding), no jar tenderness, no masses.Ostomy site RLQ abdomen. Apodaca in place.REMOVED this am. Peripheral Vascular:Upper extremityLeft- Normal temperature with pink nailbeds and no ulcerations.Upper extremity Right-Normal temperature with pink nailbeds and no ulcerations.Lower extremity- coarse, thickened skiin, chronic changes present. Chronic 2+ edema, pitting edema, thickened skin, scaley.Edema- 3+ bialteral LE pitting edema. Musculoskeletal:Generalized-Limited ROM of bilateral shoulders/hips. Limited ambuiation. normal researcher, normal elbow extension/flexion. Limited ROM shoulders, Limited ROM of knees and ankles as well due to chronic changes in skin. Decreased effort. Patient performs minimal activities. Neurological:General- Moves all 4 extremities symmetrically. Symmetrical face and body posture.Cranial nerves- individually evaluated II-XII and intact. PERRLA, Normal EOMI, visual/special senses appear intact, Face is symmetrical and normal sensation/movement, normal tongue, normal strength/posture of neck musculature. Neuropsych:Oriented- Person, place, time. (AAOx3),Mood/affect- Minimally involved. Flat.Speech-Normal speech, normal rate, normal tone,Associations- intact, no SI/HI, no hallucinations, delusions, obsessions.Judgment/insight- Limited. Lymphatic: Head/Neck- normal size and non tender to palpation. Plan: 1. D/C to [facility]. 2. Cefepime 2 g now repeat dose at noon-1:00. 1 dose of Cefepine at [facility] this evening. Today is the last dose of cefepime. 3.Levaquin 750 IV last dose today. Number 2 days Levaquin 750 p.o. to start 03/06/21 4.Apodaca to be removed 5.Transfer to [facility] for strengthening. Expected length of stay 1 to 2 weeks. Patient is aware she will be on quarantine due to lack of vaccination status. OT/PT/ST Eval and treat. 6.CBC/CMP in 48 hours then q week. 7. Resume home meds 8. Avoidance of tobacco 9. Encouraged activity. 32 minutes spent with patient today d/w patient the d/c, talked with nursing, case management today.
== END 2021-03-05 15:30 | DRG 193 ==
LOC: ED 08:47 → MEDSURG A 15:57
PROVIDERS: ADMIT Family Medicine; ATTEND Family Medicine
DX: Z20.822 Contact with and (suspected) exposure to COVID-19; D72.829 Elevated white blood cell count, unspecified; E03.9 Hypothyroidism, unspecified; R79.89 Other specified abnormal findings of blood chemistry; D64.9 Anemia, unspecified; J44.9 Chronic obstructive pulmonary disease, unspecified; Z72.0 Tobacco use; L02.32 Furuncle of buttock; Z93.3 Colostomy status; Z68.41 Body mass index [BMI] 40.0-44.9, adult; R73.9 Hyperglycemia, unspecified; J96.11 Chronic respiratory failure with hypoxia; R60.1 Generalized edema; F41.1 Generalized anxiety disorder; I10 Essential (primary) hypertension; I87.8 Other specified disorders of veins; Z78.9 Other specified health status; E87.1 Hypo-osmolality and hyponatremia; L02.31 Cutaneous abscess of buttock; R65.11 Systemic inflammatory response syndrome (SIRS) of non-infectious origin with acute organ dysfunction; J18.9 Pneumonia, unspecified organism; I87.2 Venous insufficiency (chronic) (peripheral); E78.5 Hyperlipidemia, unspecified; Z28.21 Immunization not carried out because of patient refusal; A49.8 Other bacterial infections of unspecified site; F33.9 Major depressive disorder, recurrent, unspecified; Z99.81 Dependence on supplemental oxygen

== ENCOUNTER 2021-05-13 12:30 | Inpatient (IN) ==
--- NOTE | 2021-05-13 12:45 | ED.PDOC ---
General ED Provider: Dr. JULIETA BARNES Chief Complaint: Respiratory Complaint Stated Complaint: INCREASED DYSPNEA AND WORSENEING OF HER COPD After patient presents to department home caregiver advised nursing staff patient had "sore areas" on Labia. Supposedly she previously wore depends and stated she itched in her labial region and scratched the area which she believes caused the areas of irritation Time Seen by Provider: 05/13/21 12:45 Mode of Arrival: Ambulance Information Source: Patient Exam Limitations: No limitations Primary Care Provider: LUIS MIGUEL FONG MD Nursing and Triage Documentation Reviewed and Agree: Yes Does patient meet sepsis criteria?: No System Inflammatory Response Syndrome: Not Applicable Sepsis Protocol: For patient's 13 years and over: Temp is 96.8 and below OR 101 and greater Pulse >90 BPM Resp >20/minute Acutely Altered Mental Status Are patient's symptoms suggestive of a new infection, such as: -Pneumonia -Skin, Soft Tissue -Endocarditis -UTI -Bone, Joint Infection -Implantable Device -Acute Abdominal Infection -Wound Infection -Meningitis -Blood Stream Catheter Infection -Unknown Respiratory Complaint Exam Shortness of Air Complaint/Exam Onset/Duration: 24 Respiratory Complaint/Exam Onset/Duration: 24 hrs Symptoms Are: Still present Timing: Constant Initial Severity: Mild Current Severity: Moderate Location: Chest Character: Reports Productive cough and Bronchospastic cough Aggravating: Reports Exertion, URI and Deep breaths Alleviating: Reports Bronchodilators and Upright position Associated Signs and Symptoms: Reports Rapid breathing, Dyspnea and Wheezing Related History: Reports Similar episode History of Healthcare-Acquired Pneumonia: No Pulmonary Embolism Risk Factors: None Cardiac Risk Factors: Reports None Pseudomonas Risk Factors: Reports None Tuberculosis Risk Factors: Reports None Home Oxygen Use: Yes Recent Stress Test: No Recent Echo/LV Function: No Current Antibiotic Use: No Current Asthma Medication Use: Yes Respiratory Distress: None Inadequate Respiratory Effort: No Dysphagia Present: No Stridor Present: No JVD Present: No Retractions: Not Present Diminished Breath Sounds: Yes Sinus Tenderness: None Grunting Respirations: No Kussmaul Respirations: No Differential Diagnoses: COPD Exacerbation and SARS Non-Traumatic Chest Pain Syncope: EKG Performed Review of Systems Review Of Systems Constitutional: Reports Malaise and Weakness Eyes: Reports No symptoms Ears, Nose, Mouth, Throat: Reports No symptoms Respiratory: Reports Cough, Short of air and Wheezing Cardiac: Reports No symptoms GI: Reports No symptoms : Reports No symptoms Musculoskeletal: Reports No symptoms Skin: Reports No symptoms Neurological: Reports Anxiety Endocrine: Reports No symptoms All Other Systems: Reviewed and Negative [facility] Medical History (Updated 05/13/21 @ 17:58 by LUIS MIGUEL FONG MD) Anemia Bilateral lower leg cellulitis BPV (benign positional vertigo) CHF (congestive heart failure) Chronic obstructive pulmonary disease Chronic respiratory failure with hypoxia, on home oxygen therapy Chronic venous stasis dermatitis of both lower extremities Colostomy present on admission (~05/16/19) COVID-19 Decreased mobility and endurance Diverticular disease Edema of both lower extremities due to peripheral venous insufficiency Elevated white blood cell count, unspecified Generalized anxiety disorder History of epistaxis Hyperlipidemia Hypertension, essential, benign Hypothyroidism Major depressive disorder, recurrent, unspecified Morbid obesity with BMI of 40.0-44.9, adult On home oxygen therapy Stasis dermatitis of both legs Tobacco abuse disorder Tobacco use Venous insufficiency (chronic) (peripheral) Vitamin D deficiency Social History Smoking and tobacco status: Current every day smoker Tobacco type: cigarettes Smoking cigarettes per day: 7 Tobacco: How many years used: 50 Second hand smoke exposure: Yes Smoking risk assessment performed: No Alcohol intake: never Substance use type: does not use Yanira/catholic: UATSDIN Special yanira needs: No Agree to transfusion: Yes Adopted: Yes Caregiver/support person: Yes Household members: children Housing: house Lives independently: No (lives with family) Number of children: 4 Highest education level completed: some college, no degree Financial difficulty paying for basics: not applicable service: No Current occupational status: retired Current occupational exposures/hazards: No Pets and animals: Yes Leisure activites: other History of recent travel: No Sexually active: No Do you think of yourself as: straight/heterosexual Current gender identity: female Seatbelt use: never Helmet use: No (N/A) Drives intoxicated or rides with intoxicated city route driver: No Current diet type/program: regular Caffeine: Yes Water heater temperature set < 120 degrees: Yes Working smoke detector in home: Yes Fire extinguisher in home: Yes Carbon monoxide detector in home: Yes Firearms in home: No Surgical History History of section (Unknown) History of intestinal surgery History of tubal ligation Female Reproductive History Menstrual Hx Hysterectomy: No Hx Tubal Ligation: No Physical Exam Physical Exam Appearance: Reports Ill-appearing and Obese Ill-appearing: Mild Pain Distress: Mild Eyes: Reports JM, EOMI and Conjunctiva clear ENT: Reports Ears normal, Nose normal and Oropharynx normal Neck: Supple Respiratory: Reports Airway patent, Breath sounds clear, Breath sounds diminished and Wheezes Cardiovascular: Reports RRR, Pulses normal, No rub, No murmur and Irregular rhythm GI/: Reports Soft, Nontender, Bowel sounds normal and Other (circular area of ulcer like lesions on labia=pictures taken) Musculoskeletal: Reports Normal strength Skin: Reports Warm, Dry and Normal color Neurological: Reports Sensation intact, Motor intact, Reflexes intact, Cranial nerves intact, Alert and Oriented Psychiatric: Reports Affect appropriate, Mood appropriate and Anxious Interpretation EKG Interpretation Time of EKG #1: 12:58 Rate: Normal Rhythm: Sinus Ectopy: None [place]: Left Interpretation: Junctional ST depression Physician Notification Case Discussed Physician Notified: Dr Granger Time of Notification: 16:00 Critical Care Note Critical Care Note Total Critical Care Time (mins): 30 Course Course Hematology/Chemistry: 05/13/21 13:02 05/13/21 13:02 Orders, Labs, Meds: Lab Review 05/13/21 05/13/21 05/13/21 12:51 13:02 13:02 WBC 22.47 H RBC 3.66 L Hgb 10.3 L Hct 33.2 L MCV 90.7 MCH 28.1 MCHC 31.0 L RDW Coeff of [place] 15.7 H Plt Count 269 Immature Gran % (Auto) 0.7 Neut % (Auto) 87.6 H Lymph % (Auto) 4.5 L [place] % (Auto) 5.7 Eos % (Auto) 1.2 Baso % (Auto) 0.3 Neut # (Auto) 19.7 H Lymph # (Auto) 1.0 [place] # (Auto) 1.3 Eos # (Auto) 0.3 Baso # (Auto) 0.1 Immature Gran # (Auto) 0.2 PT 11.8 H INR 1.14 APTT 28.1 Puncture Site L rad Base Excess 9.9 H O2 Saturation 93.1 L ABG pH 7.42 ABG pCO2 53.0 H ABG pO2 66.0 L ABG HCO3 34.4 H ABG Total CO2 36.0 H Cm Test Y Hemoglobin 1.5 Oxyhemoglobin 92.0 L Carboxyhemoglobin 2.6 H Total Hemoglobin 10.5 L O2 Delivery Device Cannula Oxygen Liter Flow 4.00 Sodium Potassium Chloride Carbon Dioxide Anion Gap BUN Creatinine Estimated GFR (MDRD) BUN/Creatinine Ratio Glucose Lactic Acid Uric Acid Calcium Magnesium Total Bilirubin AST ALT Alkaline Phosphatase Total Creatine Kinase Troponin I NT-Pro-B Natriuret Pep Total Protein Albumin Globulin Albumin/Globulin Ratio Lipase Procalcitonin TSH D-Dimer Urine Color Urine Clarity Urine pH Ur Specific [place] Urine Protein Urine Glucose (UA) Urine Ketones Urine Blood Urine Nitrite Urine Bilirubin Urine Urobilinogen Ur Leukocyte Esterase Urine Microscopic RBC Urine Microscopic WBC Ur Squamous Epith Cells Urine Mucus Urine Opiates Screen Ur Oxycodone Screen Urine Methadone Screen Ur Propoxyphene Screen Ur Barbiturates Screen U Tricyclic Antidepress Ur Phencyclidine Scrn Ur Amphetamine Screen U Methamphetamines Scrn U Benzodiazepines Scrn Urine Cocaine Screen U Cannabinoids Screen Adenovirus (PCR) B. pertussis DNA (PCR) B.parapertussis DNA PCR C. pneumoniae DNA (PCR) Coronavirus OC43 (PCR) Coronavirus HKU1 (PCR) Coronavirus 229E (PCR) Coronavirus NL63 (PCR) Human Metapneumovir PCR Influenza Type A (PCR) Influ A Molecular Assay Influenza B (RT-PCR) Influ B Molecular Assay M. pneumoniae (PCR) Parainfluenza 1 (PCR) Parainfluenza 2 (PCR) Parainfluenza 3 (PCR) Parainfluenza 4 (PCR) RSV (PCR) Entero/Rhino (PCR) SARS-CoV-2 (PCR) 05/13/21 05/13/21 05/13/21 13:02 13:02 13:02 WBC RBC Hgb Hct MCV MCH MCHC RDW Coeff of [place] Plt Count Immature Gran % (Auto) Neut % (Auto) Lymph % (Auto) [place] % (Auto) Eos % (Auto) Baso % (Auto) Neut # (Auto) Lymph # (Auto) [place] # (Auto) Eos # (Auto) Baso # (Auto) Immature Gran # (Auto) PT INR APTT Puncture Site Base Excess O2 Saturation ABG pH ABG pCO2 ABG pO2 ABG HCO3 ABG Total CO2 Cm Test Hemoglobin Oxyhemoglobin Carboxyhemoglobin Total Hemoglobin O2 Delivery Device Oxygen Liter Flow Sodium 134.3 L Potassium 4.48 Chloride 93.2 L Carbon Dioxide 34.9 H Anion Gap 10.68 BUN 13.4 Creatinine 1.10 Estimated GFR (MDRD) 49.00 BUN/Creatinine Ratio 12.18 Glucose 126.1 H Lactic Acid Uric Acid 5.42 Calcium 9.52 Magnesium 2.05 Total Bilirubin 1.58 H AST 19.1 ALT 12.9 Alkaline Phosphatase 100.5 Total Creatine Kinase 66.0 Troponin I < 0.012 NT-Pro-B Natriuret Pep Total Protein 7.74 Albumin 4.12 Globulin 3.62 Albumin/Globulin Ratio 1.13 Lipase 16.7 L Procalcitonin 0.16 H TSH D-Dimer 582.40 H Urine Color Urine Clarity Urine pH Ur Specific [place] Urine Protein Urine Glucose (UA) Urine Ketones Urine Blood Urine Nitrite Urine Bilirubin Urine Urobilinogen Ur Leukocyte Esterase Urine Microscopic RBC Urine Microscopic WBC Ur Squamous Epith Cells Urine Mucus Urine Opiates Screen Ur Oxycodone Screen Urine Methadone Screen Ur Propoxyphene Screen Ur Barbiturates Screen U Tricyclic Antidepress Ur Phencyclidine Scrn Ur Amphetamine Screen U Methamphetamines Scrn U Benzodiazepines Scrn Urine Cocaine Screen U Cannabinoids Screen Adenovirus (PCR) B. pertussis DNA (PCR) B.parapertussis DNA PCR C. pneumoniae DNA (PCR) Coronavirus OC43 (PCR) Coronavirus HKU1 (PCR) Coronavirus 229E (PCR) Coronavirus NL63 (PCR) Human Metapneumovir PCR Influenza Type A (PCR) Influ A Molecular Assay Influenza B (RT-PCR) Influ B Molecular Assay M. pneumoniae (PCR) Parainfluenza 1 (PCR) Parainfluenza 2 (PCR) Parainfluenza 3 (PCR) Parainfluenza 4 (PCR) RSV (PCR) Entero/Rhino (PCR) SARS-CoV-2 (PCR) 05/13/21 05/13/21 05/13/21 13:02 13:02 13:02 WBC RBC Hgb Hct MCV MCH MCHC RDW Coeff of [place] Plt Count Immature Gran % (Auto) Neut % (Auto) Lymph % (Auto) [place] % (Auto) Eos % (Auto) Baso % (Auto) Neut # (Auto) Lymph # (Auto) [place] # (Auto) Eos # (Auto) Baso # (Auto) Immature Gran # (Auto) PT INR APTT Puncture Site Base Excess O2 Saturation ABG pH ABG pCO2 ABG pO2 ABG HCO3 ABG Total CO2 Cm Test Hemoglobin Oxyhemoglobin Carboxyhemoglobin Total Hemoglobin O2 Delivery Device Oxygen Liter Flow Sodium Potassium Chloride Carbon Dioxide Anion Gap BUN Creatinine Estimated GFR (MDRD) BUN/Creatinine Ratio Glucose Lactic Acid 1.70 Uric Acid Calcium Magnesium Total Bilirubin AST ALT Alkaline Phosphatase Total Creatine Kinase Troponin I NT-Pro-B Natriuret Pep 90.200 Total Protein Albumin Globulin Albumin/Globulin Ratio Lipase Procalcitonin TSH 0.577 D-Dimer Urine Color Urine Clarity Urine pH Ur Specific [place] Urine Protein Urine Glucose (UA) Urine Ketones Urine Blood Urine Nitrite Urine Bilirubin Urine Urobilinogen Ur Leukocyte Esterase Urine Microscopic RBC Urine Microscopic WBC Ur Squamous Epith Cells Urine Mucus Urine Opiates Screen Ur Oxycodone Screen Urine Methadone Screen Ur Propoxyphene Screen Ur Barbiturates Screen U Tricyclic Antidepress Ur Phencyclidine Scrn Ur Amphetamine Screen U Methamphetamines Scrn U Benzodiazepines Scrn Urine Cocaine Screen U Cannabinoids Screen Adenovirus (PCR) B. pertussis DNA (PCR) B.parapertussis DNA PCR C. pneumoniae DNA (PCR) Coronavirus OC43 (PCR) Coronavirus HKU1 (PCR) Coronavirus 229E (PCR) Coronavirus NL63 (PCR) Human Metapneumovir PCR Influenza Type A (PCR) Influ A Molecular Assay Influenza B (RT-PCR) Influ B Molecular Assay M. pneumoniae (PCR) Parainfluenza 1 (PCR) Parainfluenza 2 (PCR) Parainfluenza 3 (PCR) Parainfluenza 4 (PCR) RSV (PCR) Entero/Rhino (PCR) SARS-CoV-2 (PCR) 05/13/21 05/13/21 05/13/21 13:05 13:05 14:10 WBC RBC Hgb Hct MCV MCH MCHC RDW Coeff of [place] Plt Count Immature Gran % (Auto) Neut % (Auto) Lymph % (Auto) [place] % (Auto) Eos % (Auto) Baso % (Auto) Neut # (Auto) Lymph # (Auto) [place] # (Auto) Eos # (Auto) Baso # (Auto) Immature Gran # (Auto) PT INR APTT Puncture Site Base Excess O2 Saturation ABG pH ABG pCO2 ABG pO2 ABG HCO3 ABG Total CO2 Cm Test Hemoglobin Oxyhemoglobin Carboxyhemoglobin Total Hemoglobin O2 Delivery Device Oxygen Liter Flow Sodium Potassium Chloride Carbon Dioxide Anion Gap BUN Creatinine Estimated GFR (MDRD) BUN/Creatinine Ratio Glucose Lactic Acid Uric Acid Calcium Magnesium Total Bilirubin AST ALT Alkaline Phosphatase Total Creatine Kinase Troponin I NT-Pro-B Natriuret Pep Total Protein Albumin Globulin Albumin/Globulin Ratio Lipase Procalcitonin TSH D-Dimer Urine Color Dark Urine Clarity Clear Urine pH 7.0 Ur Specific [place] 1.025 Urine Protein 2+ H Urine Glucose (UA) Negative Urine Ketones Negative Urine Blood 1+ H Urine Nitrite Negative Urine Bilirubin 1+ H Urine Urobilinogen 4.0 H Ur Leukocyte Esterase Negative Urine Microscopic RBC 2-5 Urine Microscopic WBC 0-2 Ur Squamous Epith Cells 0-2 Urine Mucus 2+ Urine Opiates Screen Negative Ur Oxycodone Screen Negative Urine Methadone Screen Negative Ur Propoxyphene Screen Negative Ur Barbiturates Screen Negative U Tricyclic Antidepress Negative Ur Phencyclidine Scrn Negative Ur Amphetamine Screen Negative U Methamphetamines Scrn Negative U Benzodiazepines Scrn Positive H Urine Cocaine Screen Negative U Cannabinoids Screen Negative Adenovirus (PCR) Not detected B. pertussis DNA (PCR) Not detected B.parapertussis DNA PCR Not detected C. pneumoniae DNA (PCR) Not detected Coronavirus OC43 (PCR) Not detected Coronavirus HKU1 (PCR) Not detected Coronavirus 229E (PCR) Not detected Coronavirus NL63 (PCR) Not detected Human Metapneumovir PCR Not detected Influenza Type A (PCR) Not detected Influ A Molecular Assay Negative by naat Influenza B (RT-PCR) Not detected Influ B Molecular Assay Negative by naat M. pneumoniae (PCR) Not detected Parainfluenza 1 (PCR) Not detected Parainfluenza 2 (PCR) Not detected Parainfluenza 3 (PCR) Not detected Parainfluenza 4 (PCR) Not detected RSV (PCR) Not detected Entero/Rhino (PCR) Detected H SARS-CoV-2 (PCR) Not detected Orders Category Date Time Status ADMIT PATIENT INPATIENT .TO MEDSUR (MONITORED BED) ADMISSION 05/13/21 15:32 Active ABG DRAW REQUEST Stat CARDIO 05/13/21 12:45 Completed EKG-(ED ONLY) Stat CARDIO 05/13/21 12:45 Completed OXYGEN Routine CARDIO 05/13/21 12:45 Active TELEMETRY MONITORING TELE CARE 05/13/21 15:32 Active IV [ED IV/MEDIPORT/POWERPORT] .ONCE EMERGENCY 05/13/21 12:46 Active ABG COOX Stat LAB 05/13/21 12:51 Completed BLOOD CULTURE (ED ONLY) Stat LAB 05/13/21 13:02 Received CBC W/ AUTO DIFF Stat LAB 05/13/21 13:02 Completed CMP [COMPREHENSIVE METABOLIC PANEL] Stat LAB 05/13/21 13:02 Completed CPK [CREATINE KINASE] Stat LAB 05/13/21 13:02 Completed D-DIMER Stat LAB 05/13/21 13:02 Completed FLU A & B MOLECULAR [FLU A/B MOLECULAR] Stat LAB 05/13/21 13:05 Completed LACTIC ACID Stat LAB 05/13/21 13:02 Completed LIPASE Stat LAB 05/13/21 13:02 Completed MAGNESIUM Stat LAB 05/13/21 13:02 Completed PARTIAL THROMBOPLASTIN TIME Stat LAB 05/13/21 13:02 Completed PROCALCITONIN Stat LAB 05/13/21 13:02 Completed PT WITH INR Stat LAB 05/13/21 13:02 Completed RESPIRATORY PANEL 2.1 (PCR) Stat LAB 05/13/21 13:05 Completed RPR [RAPID PLASMA REAGIN] Stat LAB 05/13/21 13:02 Received SPUTUM CULTURE Stat LAB 05/13/21 13:05 Received TROPONIN I Stat LAB 05/13/21 13:02 Completed UA [URINALYSIS C & S IF INDICATED] Stat LAB 05/13/21 14:10 Completed URIC ACID Stat LAB 05/13/21 13:02 Completed URINE DRUG SCREEN (RAPID FOR ED) [DRUG SCREEN, URINE, LAB 05/13/21 13:05 Completed RAPID] Stat 0.9 % Sodium Chloride [Saline Flush] MEDS 05/13/21 12:45 Active 1 syr IVF PRN PRN Azithromycin [Zithromax] MEDS 05/13/21 15:17 Discontinued 500 mg PO ONCE STA Ceftriaxone/D5w 1 gm Premix [Rocephin 1 gm/50 ml D5w] MEDS 05/13/21 15:14 Discontinued 1 gm in 50 ml IV ONCE CHEST, 1V AP ONLY Stat RADS 05/13/21 12:45 Completed Medications Generic Name Dose Route Start Last Admin Trade Name Freq PRN Reason Stop Dose Admin Acetaminophen 500 mg 05/13/21 17:47 Acetaminophen 500 Mg Tablet PO Q6H PRN pain/fever Albuterol Sulfate 2 puff 05/13/21 16:38 05/13/21 18:02 Albuterol Sulfate (Ventolin Hfa) 18 Gm 1 Puff With Spacer IH 2 puff Q4-6H PRN Administration Cough Budesonide/Formoterol Fumarate 2 puff 05/13/21 21:00 05/13/21 21:18 Budesonide/Formoterol Fumarate 160/4.5 Mcg Inhaler IH 2 puff BID IBIS Administration Cholecalciferol 1,000 unit 05/14/21 09:00 Cholecalciferol (Vitamin D3) 1,000 Unit (25 Mcg) Tablet PO DAILY [facility] Enoxaparin Sodium 40 mg 05/14/21 09:00 Enoxaparin Sodium 40 Mg/0.4 Ml Syr SUBCUT DAILY [facility] Fluoxetine HCl 40 mg 05/14/21 09:00 Fluoxetine Hcl 20 Mg Capsule PO DAILY [facility] Guaifenesin 600 mg 05/13/21 21:00 05/13/21 21:18 Guaifenesin 600 Mg Tablet.Er PO 600 mg BID IBIS Administration Hydroxyzine HCl 50 mg 05/13/21 21:00 05/13/21 21:19 Hydroxyzine Hcl 25 Mg Tablet PO 50 mg BEDTIME IBIS Administration CEFEPIME 2 GM/D5W 2 gm in 50 mls @ 100 mls/hr 05/13/21 21:00 05/13/21 21:22 Maxipime 2 Gm/50 Ml D5w IV 05/16/21 20:59 100 mls/hr Q12HR IBIS Administration Levofloxacin/Dextrose 750 mg in 150 mls @ 100 mls/hr 05/13/21 18:00 05/13/21 22:10 Levaquin 750 Mg/150 Ml D5w IV 05/16/21 17:59 100 mls/hr DAILY IBIS Administration Vancomycin HCl 1 gm/ Sodium 250 mls @ 250 mls/hr 05/13/21 19:00 Chloride IV 05/16/21 18:59 Q12HR IBIS Ipratropium [place] 2 puff 05/13/21 18:00 05/13/21 18:02 Ipratropium [place] 12.9 Gm Hfa Inhaler Per Puff With Spacer IH 2 puff RTQ6H IBIS Administration Levothyroxine Sodium 75 mcg 05/14/21 06:30 Levothyroxine Sodium 75 Mcg Tablet PO QDAC [facility] Losartan Potassium 50 mg 05/13/21 18:00 05/13/21 18:48 Losartan Potassium 25 Mg Tablet PO 50 mg DAILY IBIS Administration Meclizine HCl 25 mg 05/13/21 16:38 Meclizine Hcl 25 Mg Tablet PO BID PRN Dizziness Metoprolol Succinate 25 mg 05/14/21 09:00 Metoprolol Succinate 25 Mg Tab.Er.24h PO DAILY IBIS Mupirocin 1 applic 05/13/21 21:00 05/13/21 21:18 Mupirocin 22 Gm Oint TP 05/16/21 20:59 1 applic BID IBIS Administration Nystatin 1 applic 05/13/21 16:38 Nystatin 15 Gm Powder TP TID PRN rash Potassium Chloride 10 meq 05/14/21 08:30 Potassium Chloride 10 Meq Capsule.Er PO DAILYWM IBIS Sodium Chloride 1 syr 05/13/21 12:45 0.9% Sodium Chloride 10 Ml Disp.Syrin IVF PRN PRN To flush IV Triamcinolone Acetonide 1 applic 05/13/21 17:46 Triamcinolone Acetonide 80 Gm Cream TP BID PRN vulva ulcer Discontinued Medications Generic Name Dose Route Start Last Admin Trade Name Freq PRN Reason Stop Dose Admin Azithromycin 500 mg 05/13/21 15:17 05/13/21 15:21 Azithromycin 250 Mg Tablet PO 05/13/21 15:18 500 mg ONCE STA Administration CEFTRIAXONE/D5W 1 GM PREMIX 1 gm in 50 mls @ 75 mls/hr 05/13/21 15:14 05/13/21 15:19 Rocephin 1 Gm/50 Ml D5w IV 05/13/21 15:53 75 mls/hr ONCE STA Administration Vancomycin HCl 1 gm/ Sodium 250 mls @ 250 mls/hr 05/13/21 07:00 05/13/21 22:40 Chloride IV 05/16/21 06:59 Not Given Q12HR IBIS Ipratropium [place] 2 puff 05/13/21 17:00 05/13/21 17:43 Ipratropium [place] 12.9 Gm Hfa Inhaler Per Puff With Spacer IH Not Given Q6H IBIS Penicillin G Benzathine 2,400,000 unit 05/13/21 16:48 05/13/21 17:55 Penicillin G Benzathine 1,200,000 Unit/2 Ml Disp.Syrin IM 05/13/21 16:49 2,400,000 unit ONCE STA Administration Vital Signs: Temp Pulse Resp BP Pulse Ox 05/13/21 14:55 87 18 142/85 H 98 05/13/21 13:16 88 28 H 170/99 H 94 L 05/13/21 12:31 96.4 F L 105 H 28 H 173/102 H 87 L Discharge Plan Discharge Patient Disposition: ADMITTED INPATIENT Discharge Problem: Pneumonia, Ulcer of vagina ED Provider: JULIETA BARNES Condition: Stable Physician Progress Note: []
[2021-05-13 13:09] LABS: BASOPHILS # (AUTO) 0.1 K/uL (0-0.2); BASOPHILS % (AUTO) 0.3 % (0.0-3.0); EOSINOPHILS # (AUTO) 0.3 K/ul (0.0-0.7); EOSINOPHILS % (AUTO) 1.2 % (0.0-7.0); HEMATOCRIT 33.2 % (37.0-47.0); HEMOGLOBIN 10.3 g/dl (12.0-16.0); IMMATURE GRANULOCYTE # (AUTO) 0.2 (0.0-1.0); IMMATURE GRANULOCYTE % (AUTO) 0.7 % (0.0-5.0); LYMPHOCYTES % (AUTO) 4.5 (10.0-50.0); MEAN CORPUSCULAR HEMOGLOBIN 28.1 pg (27.0-31.0); MEAN CORPUSCULAR VOLUME 90.7 fl (81.0-99.0); MONOCYTES # (AUTO) 1.3 K/uL (0.4-2.0); MONOCYTES % (AUTO) 5.7 (0-10); NEUTROPHILS # (AUTO) 19.7 K/ul (2.0-6.9); NEUTROPHILS % (AUTO) 87.6 % (42.2-75.2); PLATELET COUNT 269 10^3/uL (140-440); RDW COEFFICIENT OF VARIATION 15.7 % (11.6-14.8); RED BLOOD COUNT 3.66 10^6/ul (4.20-5.40); WHITE BLOOD COUNT 22.47 K/ul (4.6-10.2)
[2021-05-13 13:09] LABS: ABG PH 7.42 (7.35-7.45); BEecf 9.9 (-2.0-3.0); COHb 2.6 (0.5-1.5); HCO3 34.4 (21-28); MetHb 1.5 (0-1.5); sO2 93.1 % (94-98); tHb 10.5 g/dl (11.7-17.4)
[2021-05-13 13:12] LABS: BORDETELLA PARAPERTUSSIS (PCR) NOT DETECTED (NOT DETECT); BORDETELLA PERTUSSIS (PCR) NOT DETECTED (NOT DETECT); CHLAMYDIA PNEUMONIAE (PCR) NOT DETECTED (NOT DETECT); CORONAVIRUS 229E (PCR) NOT DETECTED (NOT DETECT); CORONAVIRUS HKU1 (PCR) NOT DETECTED (NOT DETECT); CORONAVIRUS NL63 (PCR) NOT DETECTED (NOT DETECT); CORONAVIRUS OC43 (PCR) NOT DETECTED (NOT DETECT); HUMAN METAPNEUMOVIRUS (PCR) NOT DETECTED (NOT DETECT); INFLUENZA B (PCR) NOT DETECTED (NOT DETECT); MYCOPLASMA PNEUMONIAE (PCR) NOT DETECTED (NOT DETECT); PARAINFLUENZA VIRUS 1 (PCR) NOT DETECTED (NOT DETECT); PARAINFLUENZA VIRUS 2 (PCR) NOT DETECTED (NOT DETECT); PARAINFLUENZA VIRUS 3 (PCR) NOT DETECTED (NOT DETECT); PARAINFLUENZA VIRUS 4 (PCR) NOT DETECTED (NOT DETECT); RESPIRATORY SYNCYTIAL V (PCR) NOT DETECTED (NOT DETECT); SARS_COV_2 (PCR) NOT DETECTED (NOT DETECT)
[2021-05-13 13:29] LABS: ALANINE AMINOTRANSFERASE 12.9 U/L (0-35); ALBUMIN 4.12 g/dL (3.5-5.0); ALKALINE PHOSPHATASE 100.5 U/L (53-141); ASPARTATE AMINO TRANSFERASE 19.1 U/L (14-36); BILIRUBIN,TOTAL 1.58 mg/dL (0.2-1.3); BLOOD UREA NITROGEN 13.4 mg/dL (7-17); CALCIUM 9.52 mg/dL (8.4-10.2); CARBON DIOXIDE 34.9 mmol/L (22-30.0); CHLORIDE 93.2 mmol/L (98-107); GLUCOSE 126.1 mg/dL (74-106); LIPASE 16.7 U/L (23-300); MAGNESIUM 2.05 mg/dL (1.6-2.3); POTASSIUM 4.48 mmol/L (3.5-5.1); SODIUM 134.3 mmol/L (134.5-145); TOTAL PROTEIN 7.74 g/dL (6.3-8.2); URIC ACID 5.42 mg/dL (2.5-6.2)
[2021-05-13 13:36] LABS: PARTIAL THROMBOPLASTIN TIME 28.1 SEC (23.9-40.0); PROTHROMBIN TIME 11.8 SEC (9.3-11.0)
[2021-05-13 13:38] LABS: MOLECULAR FLU A NEGATIVE BY NAAT (NEGATIVE); MOLECULAR FLU B NEGATIVE BY NAAT (NEGATIVE)
[2021-05-13 13:50] LABS: TROPONIN I < 0.012 ng/ml (0.0000-0.120)
[2021-05-13 14:00] LABS: ADENOVIRUS (PCR) NOT DETECTED (NOT DETECT); HUMAN RHINOVIRUS/ENTEROV (PCR) DETECTED (NOT DETECT)
--- NOTE | 2021-05-13 14:35 | DI ---
EXAM: Chest radiograph; single view 05/13/2021 HISTORY: Shortness of breath COMPARISON: CT chest 03/01/2021. FINDINGS/IMPRESSION: Trachea is midline. Cardiomediastinal silhouette is unchanged. Confluent opacity in the left lung base may represent pleural effusion with adjacent atelectasis and/ or pneumonia. Atelectasis in the right lung. Increased interstitial markings represent pulmonary ed adalid versus pneumonitis versus chronic changes. Possible small right pleural effusion. No pneumothor ax. Osseous structures are intact.
[2021-05-13 14:41] LABS: BILIRUBIN,URINE 1+ (NEGATIVE); CLARITY,URINE Clear (CLEAR); COLOR,URINE Dark (YELLOW); GLUCOSE, URINE (UA) Negative (NEGATIVE); KETONES,URINE Negative (NEGATIVE); LEUKOCYTE ESTERASE ,URINE Negative (NEGATIVE); NITRITE,URINE Negative (NEGATIVE); PROTEIN,URINE 2+ (NEGATIVE); URINE, BLOOD 1+ (NEGATIVE)
[2021-05-13 14:49] LABS: MUCUS,URINE 2+ (NOT PRESENT); SQUAMOUS EPITHELIAL CELL,UR 0-2 (0-5)
[2021-05-13 14:50] LABS: URINE WBC, MICROSCOPIC 0-2 (0-2)
[2021-05-13 14:51] LABS: AMPHETAMINE SCREEN,URINE NEGATIVE (NEGATIVE); BARBITURATE SCREEN,URINE NEGATIVE (NEGATIVE); BENZODIAZEPINES SCREEN,URINE POSITIVE (NEGATIVE); CANNABINOID SCREEN,URINE NEGATIVE (NEGATIVE); COCAIN SCREEN,URINE NEGATIVE (NEGATIVE); METHADONE URINE SCREEN NEGATIVE (NEGATIVE); METHAMPHETAMINES SCREEN,URINE NEGATIVE (NEGATIVE); OPIATE SCREEN,URINE NEGATIVE (NEGATIVE); OXYCODONE URINE SCREEN NEGATIVE (NEGATIVE); PHENCYCLIDINE SCREEN,URINE NEGATIVE (NEGATIVE); PROPOXYPHENE URINE SCREEN NEGATIVE (NEGATIVE); TRICYCLIC ANTIDEPRESSANTS URIN NEGATIVE (NEGATIVE)
[2021-05-13] MEDS ORDERED: ROCEPHIN 1 GM/50 ML D5W 1 GM/50 ML BAG IV STA (15:14)
[2021-05-13] MEDS ORDERED: ZITHROMAX PO STA (15:17)
[2021-05-13 16:22] VITALS: BMI 37.6
[2021-05-13] MEDS ORDERED: ANTIVERT PO PRN (16:38)
[2021-05-13] MEDS ORDERED: NYSTOP POWDER TP PRN (16:38)
[2021-05-13] MEDS ORDERED: BICILLIN C R IM STA (16:42)
[2021-05-13] MEDS ORDERED: BICILLIN L-A IM STA (16:48)
[2021-05-13] MEDS ORDERED: ATROVENT HFA INHALER (PER PUFF-WITH SPACER) IH SCH (17:00)
[2021-05-13] MEDS ORDERED: ATROVENT HFA INHALER (SINGLE PATIENT USE) IH SCH (17:00)
--- NOTE | 2021-05-13 17:29 | PCM ---
Chief Complaint Chief Complaint: Shortness of breath. History of Present Illness History of Present Illness: 71-year-old female presented to the emergency room today with chief complaint of respiratory complaint. The patient met with Dr. Arce at 1245 with reports of increased dyspnea and worsening of COPD. Vitals in the emergency room showed temperature 96.4, pulse 105, respiratory rate 28 blood pressure 173/102. Based on vitals she has met SIRS criteria. Oxygen saturation 87% upon arrival. Second set of vitals at 1316 showed pulse and dropped to 88 respiratory rate 170/99 pulse ox 94. Third set of vitals 1455 pulse 87, respiratory rate 18, blood pressure 142/85 and pulse ox of 98%. Symptoms worsening over the last 24 hours still present. Timing is constant mild to moderate chest discomfort, productive cough and bronchospastic cough, worse with exertion, worse with deep breath. Runny nose cough sore throat congestion present. History of similar exacerbation February 25 admitted by me. Chronic home oxygen use. ER listed no Pseudomonas risk factors. No dysphagia no aspiration. No retractions positive diminished breath sounds differential diagnosis included COPD exacerbation pneumonia SARS. EKG was performed and reported as unchanged and nonacute. I do not have EKG at this time. Review of systems reports malaise and weakness shortness of breath wheezing and cough. Past family social history reviewed. Patient has a lengthy medical problem which contributes to her overall health. Body mass index of 37.6, venous insufficiency, tobacco abuse disorder, home oxygen, hypertension, hyperlipidemia, generalized anxiety, chronic bilateral lower extremity edema, noncompliance, COPD, colostomy, CHF. Current everyday smoker of 7 cigarettes/day. Ill-appearing obese female patent airway breath sounds clear breath sounds diminished and wheezes noted. No murmur no irregular rhythm mentioned. EKG interpreted by ER left axis junctional ST depression. Labs showed white blood cell count 22.47 hemoglobin 10.3 platelets 269. Predominant neutrophilia of 87.6%. INR 1.14 PTT 20.1 PT 11.8. ABG showed pH 7.42, O2 saturation 93.1 PO2 66 HCO3 34.3 CO2 36. Mixed respiratory acidosis / metabolic alkalosis. CrCL 51-70ml/min based on [place] galt/weight adjustment. Chemistry panel showed sodium mildly low 134.3, normal potassium 4.48, chloride was low at 93.2 creatinine mildly elevated at 1.0 with a GFR 49 and glucose of 126.1. Calcium normal 9.52. Magnesium normal 2.05 AST and ALT normal at 19.1 and 12.9. Alk phos normal 100.5. Troponin was negative x1. Lipase -16.7. Procalcitonin was negative D-dimer was mildly elevated at 582.4. Lactic acid - 1.70 drug screen positive for benzos. Respiratory PCR negative for flu negative for COVID positive for rhinovirus. Urine dark specific gravity 1.0251+ blood 2+ protein 1+ bili. Patient will be admitted to inpatient status we will check labs in the morning. She was given azithromycin and Rocephin in the emergency room. Patient had a history of staph infections within the groin. I will add vancomycin as well. Blood cultures and sputum cultures have been collected through the ER. I will add strep pneumo urine antigen as well as Legionella urine antigen. Additionally we will cover for staph due to recent hospitalization with IV antibiotics during a hospitalization in the last 3 months. Sputum culture has been obtained. She is at risk for Pseudomonas with IV antibiotics during hospitalization in the prior 3 months. I will change antibiotics to Levaquin and cefepime and vancomycin. This regimen should cover for pneumococcal as well as staph and pseudomonas. It was also reported to me that the patient caregiver has noted 3 ulcers on the vagina. There is no history of sexual abuse. There is no way that anybody has been around her to sexually abused her and at this point it appears to be excoriation pressure and ulceration. She does wear depends, she is incontinent of urine pretty frequently. During recent hospitalization patient was woefully noncompliant with her fluids with her legs and she refused to get in the hospital bed. Port score 92 points risk class IV 8.2 to 9.3% mortality hospitalization recommended with inpatient admission based on risk alone.Curb 65 score is a bit more controlled with one-point low risk group 2.7% 30-day mortality. Patient's risks are higher than this based on her presentation. Imaging within the emergency room showed chest x-ray confluent opacity in the left lung base pleural effusion with adjacent atelectasis and or pneumonia. Atelectasis in the right lung. Interstitial markings increased could be pulmonary edema versus pneumonitis versus chronic changes. Her D-dimer was elevated no CT was done. I will order a CT scan. Admission similar to that on March 01. Similar findings, similar elevation of white blood cell count. Patient remained in the hospital from 1024 through 1028 discharged to the halfway where she was mostly noncompliant. REVIEW OF SYMPTOMS: (Positives bolded) General: weight loss,fever, chills, night sweats, fatigue,appetite loss HEENT: blurry vision, eye pain, eye discharge, dry eyes, decreased vision,sore throattinnitus, bloody nose, hearing loss, sinus pain/pressure, ear pain/pressure. Respiratory: shortness of breath,cough,hemoptysis, wheezing, pleurisy,BRIGGS Cardiovascular:chest pain, PND, palpitation, edema,orthopnea,syncope, swelling of extremities Gastro:Nausea, vomiting, diarrhea, hematemesis, abdominal pain, constipation Genito:hematuria, dysuria, glycosuria, hesitancy, frequency, incontinence Musckelo:Arthralgia, myalgia, muscle weakness, joint swelling, NSAID use Skin:rash, pruritis, sores, nail changes, skin thickening, change in wart/mole, itching, rash, new lesions,pruritus, nail changes, vulvar lesions Neuro: Migraine, numbness, ataxia, tremor, vertigo,weakness, memory loss, Irritability, dizziness Endocrine:excessive thirst, polyuria, cold intolerance, heat intolerance, goiter Psychiatric: depression, anxiety, anti-depressants,alcohol abuse, drug abuse, insomnia,change in sleep pattern and mood changes Heme/lymph:easy bruising, bleeding gums, blood clots, swollen glands, lymphedema, Allergic/immune:allergic rhinitis, hay fever, asthma, hives Vital Signs - 24 hr 05/13/21 12:31 05/13/21 13:16 05/13/21 14:55 Temperature 96.4 F L Pulse Rate 105 H 88 87 Respiratory Rate 28 H 28 H 18 Blood Pressure 173/102 H 170/99 H 142/85 H O2 Sat by Pulse Oximetry 87 L 94 L 98 05/13/21 16:05 05/13/21 16:11 05/13/21 16:27 Temperature 97.5 F L Pulse Rate 103 H 89 Respiratory Rate 32 H 24 Blood Pressure 160/83 H O2 Sat by Pulse Oximetry 91 L 95 95 05/13/21 17:29 Temperature 97.5 F L Pulse Rate 89 Respiratory Rate 24 Blood Pressure 160/83 H O2 Sat by Pulse Oximetry 95 Constitutional:Appearance-Respiratory distress mild to moderate, sitting on bed, cannot lay flat. Using NC, pursed lip breathing. Accessory muscle use for neck and chest.Orientation- Oriented x 3, alertBuild and Nutrition-[morbidly obese]General- Patient is pleasant and cooperative with the interview and exam. Hard of hearing is present. Integumentary: General- rashes, ulcers noted within vulva (see pictures) Unable to evaluate buttock as patient would not stand, did not want support/assistance. Under breast region without any type of rash today, panus without rash. Bilateral LE with chronic lymphedematous changes, chronic stasis, stasis dermatitis, hemosiderin staining. Nails thickened, long and e/o [facility], chronic insufficiency.. DP pulse 1+, PT 1+.Palpation- Normal skin turgor wrists/hands/arms but extremely dry shoulders to wrists and bilateral LE. thickened/coarse, dry skin beyond knees bilaterally. Skin is warm to touch, appropriate. Capillary refill is normal bilateral Upper and lower extremity. Head/Neck:Head- normocephalic and atraumatic.Neck- without visible/palpable lumps or pulsations.Palpation- No bony tenderness about head/neck along frontal, occipital, temporal, parietal, mastoid, jawline, zygoma, orbit or any other location. NO temporal artery tenderness. No TMJ tenderness. Neck Supple.Thyroid-No thyromegaly, no nodules Eye:Bilaterally PERRLA, EOMI. No discharge. Upper and lower eyelids are normal. Sclera/conjunctiva normal without discharge. Cornea is normal and clear. Lens is normal. Eyeball appears normal. No ciliary flushing, no conjunctival injection. ENMT:Pinna- normal without tenderness or erythema.External auditory canal Left-normal without erythema or discharge, no excessive cerumen.External auditory canal Right-normal without erythema or discharge, no excessive cerumen.TM left- Whitaker/pearly, normal light reflex and anatomyTM Right- Whitaker/pearly, normal light reflex and anatomyHearing Assessment-normal to conversational speech.Nose and sinus- No sinus tenderness along frontal/maxillary region. External appearance normal and midline.Nares- bilateral quiet airflow, no discharge.Nasal mucosa- No bleeding noted and no ulcerations observed. [place], moist. Turbinates non boggy.Lips-normal color, moist without cracks/lesionsOral Cavity/Palate- hard/soft palate intact without lesions, oral mucosa pink and moist. Tongue normal midline.Oropharynx- no pharyngeal erythema, Uvula midline. No post nasal drip. No exudate.Salivary glands- Non tender to palpation CHEST/LUNG:Inspection- symmetric chest wall no pectus deformity. increased effort, Distant heart sounds. Wheezes, crackles and rhonchi throughout. E/O chronic lung related disease. Accessory muscles utilzed.Palpation- nontender sternum, ribline. No abnormal pulsations.Auscultation- Breath sounds coarse throughout tracheal sounds, bronchial sounds overlying sternum, Bronchovessicular sounds between scapulae posteriorly, vessicular breath sounds heard throughout periphery.Adventitious sounds- wheezes, rales, rhonchi.throughout. Coarse. I:E 1:2. Pursed lip. Wet sounds. No egophany. CARDIOVASCULAR:Carotid artery-normal, no bruits or abnormal pulsations. Jugular vein- no pulsations.Palpation/Percussion- Normal PMI, no palpable thrillAuscultation- Regular rate and rhythm. No murmur noted in sitting, supine positions.Extremities- no digital clubbing, cyanosis, edema, increased warmth. ABDOMEN:Inspection- normal and no visible pulsations. Normal contour. Auscultation- Bowel sounds normal, no abdominal bruits.Palpation/Percussion- soft, non-tender, no rebound tenderness, no rigidity (guarding), no jar tenderness, no masses.Ostomy site RLQ abdomen. No tenderness. Mild e/o herniation/weakness Peripheral Vascular:Upper extremityLeft- cool temperature with pink nailbeds and no ulcerations.Thickened dry skin shoulders downUpper extremity Right- cooltemperature with pink nailbeds and no ulcerations.Thickened dry skin shoulders down. Lower extremity- coarse, thickened skiin, chronic changes present. Chronic 2+ edema, pitting edema, thickened skin, scaley.Edema- 2+ pitting edema. Musculoskeletal:Generalized-No generalized swelling or edema of upper extremities, Lower extremities as noted above. Limited ROM of bilateral shoulders/hips. Limited ambuiation. 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 Limited ROM of knees and ankles as well due to chronic changes in skin.Upper extremity- Symmetrical posture. Forward sitting. No visible deformity. Reduced Shoulder ROM. Reduced shoulder abduction/foward flexion. NO tenderness overlying shoulder, lateral/medial epicondyle. Stitcher Feeder 5/5 and strength 5/5 bilateral UE. Elbow palpated, no tenderness overlying olecranon. Normal supination, pronation to active/passive ROM and to resisted rotation. Lower extremity- Hip: Not tender to palpation, no pain. Chronic bilateral LE swelling, edema and erythema of surrounding tissue/. Reduced hip ROM. Reduced knee extension/flexion. Ankle:ROM reduced. Bilateral LE tender to palpation along foot to knee. : #3 large vulvar lesions and # [3] smaller lesions. Please see nurse photograph. Edges are smooth. ?Aphthous ulcers vs possible sypilitic lesions. Neurological:General- Moves all 4 extremities symmetrically. Symmetrical face and body posture.Cranial nerves- individually evaluated II-XII and intact. PERRLA, Normal EOMI, visual/special senses appear intact, Face is symmetrical and normal sensation/movement, normal tongue, normal strength/posture of neck musculature. Neuropsych:Oriented- Person, place, time. (AAOx3),Mood/affect- normal and congruent. Able to articulate well.Speech-Normal speech, normal rate, normal tone, normal use of language, volume and coherence.Thought content- normal with ability to perform basic computations and apply abstract thought/reason. Associations- intact, no SI/HI, no hallucinations, delusions, obsessions. Judgment/insight- Appropriate.Memory-Recall intact, remote and recent memory intact.Knowledge- Age appropriate fund of knowledge, concentration and attention span normal. Lymphatic: Head/Neck- normal size and non tender to palpation. Allergies Allergies Allergy/AdvReac Type Severity Reaction Status Date / Time No Known Allergies Allergy Unknown Uncoded 05/13/21 12:45 [facility] Medical History (Updated 05/13/21 @ 17:58 by LUIS MIGUEL FONG MD) Anemia Bilateral lower leg cellulitis BPV (benign positional vertigo) CHF (congestive heart failure) Chronic obstructive pulmonary disease Chronic respiratory failure with hypoxia, on home oxygen therapy Chronic venous stasis dermatitis of both lower extremities Colostomy present on admission (~05/16/19) COVID-19 Decreased mobility and endurance Diverticular disease Edema of both lower extremities due to peripheral venous insufficiency Elevated white blood cell count, unspecified Generalized anxiety disorder History of epistaxis Hyperlipidemia Hypertension, essential, benign Hypothyroidism Major depressive disorder, recurrent, unspecified Morbid obesity with BMI of 40.0-44.9, adult On home oxygen therapy Stasis dermatitis of both legs Tobacco abuse disorder Tobacco use Venous insufficiency (chronic) (peripheral) Vitamin D deficiency Surgical History History of section (Unknown) History of intestinal surgery History of tubal ligation Social History Smoking and tobacco status: Current every day smoker Tobacco type: cigarettes Smoking cigarettes per day: 7 Tobacco: How many years used: 50 Second hand smoke exposure: Yes Smoking risk assessment performed: No Alcohol intake: never Substance use type: does not use Yanira/pentecostalism: [employer] Special yanira needs: No Agree to transfusion: Yes Adopted: Yes Caregiver/support person: Yes Household members: children Housing: house Lives independently: No (lives with family) Number of children: 4 Highest education level completed: some college, no degree Financial difficulty paying for basics: not applicable service: No Current occupational status: retired Current occupational exposures/hazards: No Pets and animals: Yes Leisure activites: other History of recent travel: No Sexually active: No Do you think of yourself as: straight/heterosexual Current gender identity: female Seatbelt use: never Helmet use: No (N/A) Drives intoxicated or rides with intoxicated spike driver: No Current diet type/program: regular Caffeine: Yes Water heater temperature set < 120 degrees: Yes Working smoke detector in home: Yes Fire extinguisher in home: Yes Carbon monoxide detector in home: Yes Firearms in home: No Medications Medications: Medications Generic Name Dose Route Start Last Admin Trade Name Freq PRN Reason Stop Dose Admin Albuterol Sulfate 2 puff 05/13/21 16:38 Albuterol Sulfate (Ventolin Hfa) 18 Gm 1 Puff With Spacer IH Q4-6H PRN Cough Budesonide/Formoterol Fumarate 2 puff 05/13/21 21:00 Budesonide/Formoterol Fumarate 160/4.5 Mcg Inhaler IH BID [facility] Cholecalciferol 1,000 unit 05/14/21 09:00 Cholecalciferol (Vitamin D3) 1,000 Unit (25 Mcg) Tablet PO DAILY [facility] Enoxaparin Sodium 40 mg 05/14/21 09:00 Enoxaparin Sodium 40 Mg/0.4 Ml Syr SUBCUT DAILY [facility] Fluoxetine HCl 40 mg 05/14/21 09:00 Fluoxetine Hcl 20 Mg Capsule PO DAILY [facility] Guaifenesin 600 mg 05/13/21 21:00 Guaifenesin 600 Mg Tablet.Er PO BID [facility] Hydroxyzine HCl 50 mg 05/13/21 21:00 Hydroxyzine Hcl 25 Mg Tablet PO BEDTIME [facility] Azithromycin 500 mg/ Sodium 250 mls @ 125 mls/hr 05/14/21 09:00 Chloride IV 05/17/21 08:59 DAILY [facility] Ceftriaxone Sodium 1 gm/ 100 mls @ 150 mls/hr 05/14/21 09:00 Sodium Chloride IV 05/17/21 08:59 DAILY [facility] Ipratropium [place] 2 puff 05/13/21 17:00 Ipratropium [place] 12.9 Gm Hfa Inhaler Per Puff With Spacer IH Q6H [facility] Levothyroxine Sodium 75 mcg 05/14/21 06:30 Levothyroxine Sodium 75 Mcg Tablet PO QDAC [facility] Meclizine HCl 25 mg 05/13/21 16:38 Meclizine Hcl 25 Mg Tablet PO BID PRN Dizziness Metoprolol Succinate 25 mg 05/14/21 09:00 Metoprolol Succinate 25 Mg Tab.Er.24h PO DAILY [facility] Mupirocin 1 applic 05/13/21 21:00 Mupirocin 22 Gm Oint TP 05/16/21 20:59 BID IBIS Nystatin 1 applic 05/13/21 16:38 Nystatin 15 Gm Powder TP TID PRN rash Potassium Chloride 10 meq 05/14/21 08:30 Potassium Chloride 10 Meq Capsule.Er PO DAILYWM [facility] Sodium Chloride 1 syr 05/13/21 12:45 0.9% Sodium Chloride 10 Ml Disp.Syrin IVF PRN PRN To flush IV Body Composition Height: 5 ft 3 in Weight: 212 lb 8 oz Body Mass Index (BMI): 37.6 Vital Signs Temperature: 97.5 F Pulse Rate: 89 Respiratory Rate: 24 Blood Pressure: 160/83 O2 Sat by Pulse Oximetry: 95 Lab/Tests/Diagnostic Imaging Lab/Tests/Diagnostic Imaging: Lab Review 05/13/21 05/13/21 05/13/21 12:51 13:02 13:02 WBC 22.47 H RBC 3.66 L Hgb 10.3 L Hct 33.2 L MCV 90.7 MCH 28.1 MCHC 31.0 L RDW Coeff of [place] 15.7 H Plt Count 269 Immature Gran % (Auto) 0.7 Neut % (Auto) 87.6 H Lymph % (Auto) 4.5 L [place] % (Auto) 5.7 Eos % (Auto) 1.2 Baso % (Auto) 0.3 Neut # (Auto) 19.7 H Lymph # (Auto) 1.0 [place] # (Auto) 1.3 Eos # (Auto) 0.3 Baso # (Auto) 0.1 Immature Gran # (Auto) 0.2 PT 11.8 H INR 1.14 APTT 28.1 Puncture Site L rad Base Excess 9.9 H O2 Saturation 93.1 L ABG pH 7.42 ABG pCO2 53.0 H ABG pO2 66.0 L ABG HCO3 34.4 H ABG Total CO2 36.0 H Cm Test Y Hemoglobin 1.5 Oxyhemoglobin 92.0 L Carboxyhemoglobin 2.6 H Total Hemoglobin 10.5 L O2 Delivery Device Cannula Oxygen Liter Flow 4.00 Sodium Potassium Chloride Carbon Dioxide Anion Gap BUN Creatinine Estimated GFR (MDRD) BUN/Creatinine Ratio Glucose Lactic Acid Uric Acid Calcium Magnesium Total Bilirubin AST ALT Alkaline Phosphatase Total Creatine Kinase Troponin I Total Protein Albumin Globulin Albumin/Globulin Ratio Lipase Procalcitonin D-Dimer Urine Color Urine Clarity Urine pH Ur Specific [place] Urine Protein Urine Glucose (UA) Urine Ketones Urine Blood Urine Nitrite Urine Bilirubin Urine Urobilinogen Ur Leukocyte Esterase Urine Microscopic RBC Urine Microscopic WBC Ur Squamous Epith Cells Urine Mucus Urine Opiates Screen Ur Oxycodone Screen Urine Methadone Screen Ur Propoxyphene Screen Ur Barbiturates Screen U Tricyclic Antidepress Ur Phencyclidine Scrn Ur Amphetamine Screen U Methamphetamines Scrn U Benzodiazepines Scrn Urine Cocaine Screen U Cannabinoids Screen Adenovirus (PCR) B. pertussis DNA (PCR) B.parapertussis DNA PCR C. pneumoniae DNA (PCR) Coronavirus OC43 (PCR) Coronavirus HKU1 (PCR) Coronavirus 229E (PCR) Coronavirus NL63 (PCR) Human Metapneumovir PCR Influenza Type A (PCR) Influ A Molecular Assay Influenza B (RT-PCR) Influ B Molecular Assay M. pneumoniae (PCR) Parainfluenza 1 (PCR) Parainfluenza 2 (PCR) Parainfluenza 3 (PCR) Parainfluenza 4 (PCR) RSV (PCR) Entero/Rhino (PCR) SARS-CoV-2 (PCR) 05/13/21 05/13/21 05/13/21 13:02 13:02 13:02 WBC RBC Hgb Hct MCV MCH MCHC RDW Coeff of [place] Plt Count Immature Gran % (Auto) Neut % (Auto) Lymph % (Auto) [place]ucks % (Auto) Eos % (Auto) Baso % (Auto) Neut # (Auto) Lymph # (Auto) [place] # (Auto) Eos # (Auto) Baso # (Auto) Immature Gran # (Auto) PT INR APTT Puncture Site Base Excess O2 Saturation ABG pH ABG pCO2 ABG pO2 ABG HCO3 ABG Total CO2 Cm Test Hemoglobin Oxyhemoglobin Carboxyhemoglobin Total Hemoglobin O2 Delivery Device Oxygen Liter Flow Sodium 134.3 L Potassium 4.48 Chloride 93.2 L Carbon Dioxide 34.9 H Anion Gap 10.68 BUN 13.4 Creatinine 1.10 Estimated GFR (MDRD) 49.00 BUN/Creatinine Ratio 12.18 Glucose 126.1 H Lactic Acid Uric Acid 5.42 Calcium 9.52 Magnesium 2.05 Total Bilirubin 1.58 H AST 19.1 ALT 12.9 Alkaline Phosphatase 100.5 Total Creatine Kinase 66.0 Troponin I < 0.012 Total Protein 7.74 Albumin 4.12 Globulin 3.62 Albumin/Globulin Ratio 1.13 Lipase 16.7 L Procalcitonin 0.16 H D-Dimer 582.40 H Urine Color Urine Clarity Urine pH Ur Specific [place] Urine Protein Urine Glucose (UA) Urine Ketones Urine Blood Urine Nitrite Urine Bilirubin Urine Urobilinogen Ur Leukocyte Esterase Urine Microscopic RBC Urine Microscopic WBC Ur Squamous Epith Cells Urine Mucus Urine Opiates Screen Ur Oxycodone Screen Urine Methadone Screen Ur Propoxyphene Screen Ur Barbiturates Screen U Tricyclic Antidepress Ur Phencyclidine Scrn Ur Amphetamine Screen U Methamphetamines Scrn U Benzodiazepines Scrn Urine Cocaine Screen U Cannabinoids Screen Adenovirus (PCR) B. pertussis DNA (PCR) B.parapertussis DNA PCR C. pneumoniae DNA (PCR) Coronavirus OC43 (PCR) Coronavirus HKU1 (PCR) Coronavirus 229E (PCR) Coronavirus NL63 (PCR) Human Metapneumovir PCR Influenza Type A (PCR) Influ A Molecular Assay Influenza B (RT-PCR) Influ B Molecular Assay M. pneumoniae (PCR) Parainfluenza 1 (PCR) Parainfluenza 2 (PCR) Parainfluenza 3 (PCR) Parainfluenza 4 (PCR) RSV (PCR) Entero/Rhino (PCR) SARS-CoV-2 (PCR) 05/13/21 05/13/21 05/13/21 13:02 13:05 13:05 WBC RBC Hgb Hct MCV MCH MCHC RDW Coeff of [place] Plt Count Immature Gran % (Auto) Neut % (Auto) Lymph % (Auto) [place] % (Auto) Eos % (Auto) Baso % (Auto) Neut # (Auto) Lymph # (Auto) [place] # (Auto) Eos # (Auto) Baso # (Auto) Immature Gran # (Auto) PT INR APTT Puncture Site Base Excess O2 Saturation ABG pH ABG pCO2 ABG pO2 ABG HCO3 ABG Total CO2 Cm Test Hemoglobin Oxyhemoglobin Carboxyhemoglobin Total Hemoglobin O2 Delivery Device Oxygen Liter Flow Sodium Potassium Chloride Carbon Dioxide Anion Gap BUN Creatinine Estimated GFR (MDRD) BUN/Creatinine Ratio Glucose Lactic Acid 1.70 Uric Acid Calcium Magnesium Total Bilirubin AST ALT Alkaline Phosphatase Total Creatine Kinase Troponin I Total Protein Albumin Globulin Albumin/Globulin Ratio Lipase Procalcitonin D-Dimer Urine Color Urine Clarity Urine pH Ur Specific [place] Urine Protein Urine Glucose (UA) Urine Ketones Urine Blood Urine Nitrite Urine Bilirubin Urine Urobilinogen Ur Leukocyte Esterase Urine Microscopic RBC Urine Microscopic WBC Ur Squamous Epith Cells Urine Mucus Urine Opiates Screen Negative Ur Oxycodone Screen Negative Urine Methadone Screen Negative Ur Propoxyphene Screen Negative Ur Barbiturates Screen Negative U Tricyclic Antidepress Negative Ur Phencyclidine Scrn Negative Ur Amphetamine Screen Negative U Methamphetamines Scrn Negative U Benzodiazepines Scrn Positive H Urine Cocaine Screen Negative U Cannabinoids Screen Negative Adenovirus (PCR) Not detected B. pertussis DNA (PCR) Not detected B.parapertussis DNA PCR Not detected C. pneumoniae DNA (PCR) Not detected Coronavirus OC43 (PCR) Not detected Coronavirus HKU1 (PCR) Not detected Coronavirus 229E (PCR) Not detected Coronavirus NL63 (PCR) Not detected Human Metapneumovir PCR Not detected Influenza Type A (PCR) Not detected Influ A Molecular Assay Negative by naat Influenza B (RT-PCR) Not detected Influ B Molecular Assay Negative by naat M. pneumoniae (PCR) Not detected Parainfluenza 1 (PCR) Not detected Parainfluenza 2 (PCR) Not detected Parainfluenza 3 (PCR) Not detected Parainfluenza 4 (PCR) Not detected RSV (PCR) Not detected Entero/Rhino (PCR) Detected H SARS-CoV-2 (PCR) Not detected 05/13/21 14:10 WBC RBC Hgb Hct MCV MCH MCHC RDW Coeff of [place] Plt Count Immature Gran % (Auto) Neut % (Auto) Lymph % (Auto) [place] % (Auto) Eos % (Auto) Baso % (Auto) Neut # (Auto) Lymph # (Auto) [place] # (Auto) Eos # (Auto) Baso # (Auto) Immature Gran # (Auto) PT INR APTT Puncture Site Base Excess O2 Saturation ABG pH ABG pCO2 ABG pO2 ABG HCO3 ABG Total CO2 Cm Test Hemoglobin Oxyhemoglobin Carboxyhemoglobin Total Hemoglobin O2 Delivery Device Oxygen Liter Flow Sodium Potassium Chloride Carbon Dioxide Anion Gap BUN Creatinine Estimated GFR (MDRD) BUN/Creatinine Ratio Glucose Lactic Acid Uric Acid Calcium Magnesium Total Bilirubin AST ALT Alkaline Phosphatase Total Creatine Kinase Troponin I Total Protein Albumin Globulin Albumin/Globulin Ratio Lipase Procalcitonin D-Dimer Urine Color Dark Urine Clarity Clear Urine pH 7.0 Ur Specific Mobile 1.025 Urine Protein 2+ H Urine Glucose (UA) Negative Urine Ketones Negative Urine Blood 1+ H Urine Nitrite Negative Urine Bilirubin 1+ H Urine Urobilinogen 4.0 H Ur Leukocyte Esterase Negative Urine Microscopic RBC 2-5 Urine Microscopic WBC 0-2 Ur Squamous Epith Cells 0-2 Urine Mucus 2+ Urine Opiates Screen Ur Oxycodone Screen Urine Methadone Screen Ur Propoxyphene Screen Ur Barbiturates Screen U Tricyclic Antidepress Ur Phencyclidine Scrn Ur Amphetamine Screen U Methamphetamines Scrn U Benzodiazepines Scrn Urine Cocaine Screen U Cannabinoids Screen Adenovirus (PCR) B. pertussis DNA (PCR) B.parapertussis DNA PCR C. pneumoniae DNA (PCR) Coronavirus OC43 (PCR) Coronavirus HKU1 (PCR) Coronavirus 229E (PCR) Coronavirus NL63 (PCR) Human Metapneumovir PCR Influenza Type A (PCR) Influ A Molecular Assay Influenza B (RT-PCR) Influ B Molecular Assay M. pneumoniae (PCR) Parainfluenza 1 (PCR) Parainfluenza 2 (PCR) Parainfluenza 3 (PCR) Parainfluenza 4 (PCR) RSV (PCR) Entero/Rhino (PCR) SARS-CoV-2 (PCR) Orders Category Date Time Status ADMIT PATIENT INPATIENT .TO [facility] (MONITORED BED) ADMISSION 05/13/21 15:32 Active ABG DRAW REQUEST Stat CARDIO 05/13/21 12:45 Completed EKG-(ED ONLY) Stat CARDIO 05/13/21 12:45 Completed METERED DOSE INHALATION Routine CARDIO 05/13/21 16:38 Ordered OXYGEN Routine CARDIO 05/13/21 12:45 Ordered TELEMETRY MONITORING TELE CARE 05/13/21 15:32 Active REGULAR DIET DIETARY 05/13/21 Dinner Ordered IV [ED IV/MEDIPORT/POWERPORT] .ONCE EMERGENCY 05/13/21 12:46 Active ABG COOX Stat LAB 05/13/21 12:51 Completed BLOOD CULTURE (ED ONLY) Stat LAB 05/13/21 13:02 Received CBC W/ AUTO DIFF DAILY@0600 LAB 05/14/21 06:00 Ordered CBC W/ AUTO DIFF DAILY@0600 LAB 05/15/21 06:00 Ordered CBC W/ AUTO DIFF DAILY@0600 LAB 05/16/21 06:00 Ordered CBC W/ AUTO DIFF Stat LAB 05/13/21 13:02 Completed CMP [COMPREHENSIVE METABOLIC PANEL] DAILY@0600 LAB 05/14/21 06:00 Ordered CMP [COMPREHENSIVE METABOLIC PANEL] DAILY@0600 LAB 05/15/21 06:00 Ordered CMP [COMPREHENSIVE METABOLIC PANEL] Stat LAB 05/13/21 13:02 Completed CPK [CREATINE KINASE] Stat LAB 05/13/21 13:02 Completed D-DIMER Stat LAB 05/13/21 13:02 Completed FLU A & B MOLECULAR [FLU A/B MOLECULAR] Stat LAB 05/13/21 13:05 Completed LACTIC ACID Stat LAB 05/13/21 13:02 Completed LIPASE Stat LAB 05/13/21 13:02 Completed MAGNESIUM Stat LAB 05/13/21 13:02 Completed PARTIAL THROMBOPLASTIN TIME Stat LAB 05/13/21 13:02 Completed PROCALCITONIN Stat LAB 05/13/21 13:02 Completed PT WITH INR Stat LAB 05/13/21 13:02 Completed RESPIRATORY PANEL 2.1 (PCR) Stat LAB 05/13/21 13:05 Completed RPR [RAPID PLASMA REAGIN] Stat LAB 05/13/21 13:02 Received SPUTUM CULTURE Stat LAB 05/13/21 13:05 Received TROPONIN I Stat LAB 05/13/21 13:02 Completed UA [URINALYSIS C & S IF INDICATED] Stat LAB 05/13/21 14:10 Completed URIC ACID Stat LAB 05/13/21 13:02 Completed URINE DRUG SCREEN (RAPID FOR ED) [DRUG SCREEN, URINE, LAB 05/13/21 13:05 Completed RAPID] Stat 0.9 % Sodium Chloride [Saline Flush] MEDS 05/13/21 12:45 Active 1 syr IVF PRN PRN Albuterol Inhaler(with Spacer) [Ventolin Hfa (Per Puff- MEDS 05/13/21 16:38 Ordered with Spacer)] 2 puff IH Q4-6H PRN Azithromycin Inj [Zithromax] 500 mg MEDS 05/14/21 09:00 Ordered 0.9 % Sodium Chloride [Sodium Chloride] 250 ml IV DAILY Azithromycin [Zithromax] MEDS 05/13/21 15:17 Discontinued 500 mg PO ONCE STA Budesonide/Formoterol Fumarate [Symbicort 160-4.5 Mcg MEDS 05/13/21 21:00 Ordered Inhaler] 2 puff IH BID Ceftriaxone 1 gm Vial [Rocephin 1 gm Vial] 1 gm MEDS 05/14/21 09:00 Active 0.9 % Sodium Chloride [Sodium Chloride 100Ml] 100 ml IV DAILY Ceftriaxone/D5w 1 gm Premix [Rocephin 1 gm/50 ml D5w] MEDS 05/13/21 15:14 Discontinued 1 gm in 50 ml IV ONCE Cholecalciferol (Vitamin D3) [Vitamin D] MEDS 05/13/21 17:00 Ordered DOSE unit PO QDAY Enoxaparin Sodium [Lovenox] MEDS 05/14/21 09:00 Ordered 40 mg SUBCUT DAILY Fluoxetine HCl [Prozac] MEDS 05/13/21 17:00 Ordered 40 mg PO QDAY Guaifenesin [Mucinex] MEDS 05/13/21 21:00 Ordered 600 mg PO BID Hydroxyzine HCl [Atarax] MEDS 05/13/21 17:00 Ordered 50 mg PO QHS Ipratropium Inhaler(Spacer) [Atrovent Hfa Inhaler (Per MEDS 05/13/21 17:00 Active Puff-with Spacer)] 2 puff IH Q6H Levothyroxine Sodium [Synthroid] MEDS 05/14/21 06:30 Active 75 mcg PO QDAC Meclizine HCl [Antivert] MEDS 05/13/21 16:38 Active 25 mg PO BID PRN Metoprolol Succinate [Toprol Xl] MEDS 05/13/21 17:00 Ordered 25 mg PO QDAY Mupirocin [Bactroban] MEDS 05/13/21 21:00 Ordered 1 applic TP BID Nystatin [Nystop Powder] MEDS 05/13/21 16:38 Ordered 1 applic TP TID PRN Penicillin G Benzathine [Bicillin l-A] MEDS 05/13/21 16:48 Stat 1,200,000 unit IM ONCE STA Potassium Chloride [Micro-K Cap] MEDS 05/14/21 09:00 Ordered 10 meq PO DAILY RESUSCITATION STATUS Routine OTHERS 05/13/21 16:22 Ordered CHEST, 1V AP ONLY Stat RADS 05/13/21 12:45 Completed OT CONSULTATION Routine THERAPIES 05/13/21 Ordered Medications Generic Name Dose Route Start Last Admin Trade Name Freq PRN Reason Stop Dose Admin Albuterol Sulfate 2 puff 05/13/21 16:38 Albuterol Sulfate (Ventolin Hfa) 18 Gm 1 Puff With Spacer IH Q4-6H PRN Cough Budesonide/Formoterol Fumarate 2 puff 05/13/21 21:00 Budesonide/Formoterol Fumarate 160/4.5 Mcg Inhaler IH BID IBIS Cholecalciferol 1,000 unit 05/14/21 09:00 Cholecalciferol (Vitamin D3) 1,000 Unit (25 Mcg) Tablet PO DAILY IBIS Enoxaparin Sodium 40 mg 05/14/21 09:00 Enoxaparin Sodium 40 Mg/0.4 Ml Syr SUBCUT DAILY IBIS Fluoxetine HCl 40 mg 05/14/21 09:00 Fluoxetine Hcl 20 Mg Capsule PO DAILY IBIS Guaifenesin 600 mg 05/13/21 21:00 Guaifenesin 600 Mg Tablet.Er PO BID IBIS Hydroxyzine HCl 50 mg 05/13/21 21:00 Hydroxyzine Hcl 25 Mg Tablet PO BEDTIME IBIS Azithromycin 500 mg/ Sodium 250 mls @ 125 mls/hr 05/14/21 09:00 Chloride IV 05/17/21 08:59 DAILY IBIS Ceftriaxone Sodium 1 gm/ 100 mls @ 150 mls/hr 05/14/21 09:00 Sodium Chloride IV 05/17/21 08:59 DAILY IBIS Ipratropium [place] 2 puff 05/13/21 17:00 Ipratropium [place]ridge 12.9 Gm Hfa Inhaler Per Puff With Spacer IH Q6H IBIS Levothyroxine Sodium 75 mcg 05/14/21 06:30 Levothyroxine Sodium 75 Mcg Tablet PO QDAC IBIS Meclizine HCl 25 mg 05/13/21 16:38 Meclizine Hcl 25 Mg Tablet PO BID PRN Dizziness Metoprolol Succinate 25 mg 05/14/21 09:00 Metoprolol Succinate 25 Mg Tab.Er.24h PO DAILY IBIS Mupirocin 1 applic 05/13/21 21:00 Mupirocin 22 Gm Oint TP 05/16/21 20:59 BID IBIS Nystatin 1 applic 05/13/21 16:38 Nystatin 15 Gm Powder TP TID PRN rash Potassium Chloride 10 meq 05/14/21 08:30 Potassium Chloride 10 Meq Capsule.Er PO DAILYWM IBIS Sodium Chloride 1 syr 05/13/21 12:45 0.9% Sodium Chloride 10 Ml Disp.Syrin IVF PRN PRN To flush IV Discontinued Medications Generic Name Dose Route Start Last Admin Trade Name Freq PRN Reason Stop Dose Admin Azithromycin 500 mg 05/13/21 15:17 05/13/21 15:21 Azithromycin 250 Mg Tablet PO 05/13/21 15:18 500 mg ONCE STA Administration CEFTRIAXONE/D5W 1 GM PREMIX 1 gm in 50 mls @ 75 mls/hr 05/13/21 15:14 05/13/21 15:19 Rocephin 1 Gm/50 Ml D5w IV 05/13/21 15:53 75 mls/hr ONCE STA Administration Penicillin G Benzathine 2,400,000 unit 05/13/21 16:48 Penicillin G Benzathine 1,200,000 Unit/2 Ml Disp.Syrin IM 05/13/21 16:49 ONCE STA Assessment (1) Pneumonia: Status: Acute Code(s): J18.9 - Pneumonia, unspecified organism SNOMED Code(s): 600410698 (2) Pseudomonas infection: Status: Acute Code(s): A49.8 - Other bacterial infections of unspecified site SNOMED Code(s): 03504732 (3) SIRS (systemic inflammatory response syndrome): Status: Acute Code(s): R65.10 - Systemic inflammatory response syndrome (SIRS) of non-infectious origin without acute organ dysfunction SNOMED Code(s): 028523169 (4) Body mass index (BMI) of 40.1 to 44.9 in adult: Status: Acute Code(s): Z68.41 - Body mass index [BMI] 40.0-44.9, adult SNOMED Code(s): 485331367 (5) Hyponatremia: Status: Acute Code(s): E87.1 - Hypo-osmolality and hyponatremia SNOMED Code(s): 65639837 (6) Hyperglycemia: Status: Acute Code(s): R73.9 - Hyperglycemia, unspecified SNOMED Code(s): 57215001 (7) Elevated d-dimer: Status: Acute Code(s): R79.89 - Other specified abnormal findings of blood chemistry SNOMED Code(s): 643914223 (8) Acquired hypothyroidism: Status: Acute Code(s): E03.9 - Hypothyroidism, unspecified SNOMED Code(s): 126872248 (9) Venous stasis: Status: Acute Code(s): I87.8 - Other specified disorders of veins SNOMED Code(s): 35499119 (10) Electronic cigarette use: Status: Acute Code(s): Z78.9 - Other specified health status SNOMED Code(s): 530652820 (11) correction resident: Status: Acute Code(s): Z59.3 - Problems related to living in residential institution SNOMED Code(s): 347473881 (12) Vulvar ulcer: Status: Acute Code(s): N76.6 - Ulceration of vulva SNOMED Code(s): 54845793 (13) Rhinovirus: Status: Acute Code(s): B34.8 - Other viral infections of unspecified site SNOMED Code(s): 41963790 Plan Plan: Pneumonia/normal procalcitonin/ SIRS/History of COPD: Recent hospital stay 03/01- through 03/05. The patient presented to the emergency room today with evidence of pneumonia and worsening respiratory status. This was similar to previous presentation. Her white count on admission for 1026 was 20.24 it is now 22.47. He did return to normal. Repeat pneumonia is likely. Port score suggest the patient does require hospitalization and inpatient status is recommended. We will admit to telemetry we will check labs each morning. We will follow-up with the blood and sputum's cultures. I will order urine for strep pneumoniae and Legionella. COPD CHF now with vulvar ulcers. and buttock abscess that she will require IV antibiotics. I have reviewed her labs and she has a chronic leukocytosis in the 20-22 range. Chronic anemia in the 8.3-11.4 range. Normal platelets. ABG looked okay. pH was 7.36. She did have some hypoxia with PO2 of 75 and CO2 was at 61. Patient has numerous medical problems which increases the concern for her pneumonia. Mild hyponatremia is present renal function is okay. Her lactic acid was negative at 1.94 but her procalcitonin was positive at 2.10. She had a history of Pseudomonas infection of the skin and because of this I will cover her with Levaquin and cefepime. Imaging was reviewed and chest x-ray showed worsening process elevated Ddimer no CT. CTA ordered. She will continue to get Lasix for diuresis, no BNP ordered, I have ordered this as well. She was started on antibiotics as requested. I will start patient on Levaquin 750 mg IV daily x5 days and we will use cefepime 2 g every 12 hours. This should cover for Pseudomonas. Additionally vanco 1g BID for MRSA coverage. Chronic leukocytosis etiology unknown. Chronic major medical problems reviewed with patient and nursing. Patient does have numerous medical problems that increase likelihood of complications. Covid negative. - Admit to inpatient status - Telemetery - am cbc/cmp - F/U with sputum and blood cultures. - Colostomy care - DASH diet encouraged. - OOB, incentive spirometry - Albuterol q 4 hours prn - Lovenox 40 mg subcutaneously daily for DVT Prophy -Continue budesonide Po medication. Continue Mucinex twice daily Venous stasis/stasis dermatitis/lymphedema: Poor health overall. The patient did spend several days in the hospital followed by halfway stay. She had completed a round of antibiotics and thenn presented today. At present legs are chronically edematous, chronically thickened scales and she has evidence of chronic lymphedema. I do not suspect any secondary infection. At last hospitalization she refused to elevate legs refused to get in the hospital bed. We will try to keep the legs elevated. History of Pseudomonas skin infection. So far no area to culture. We will continue to monitor. Leukocytosis:I still believe a peripheral smear and possibly flow cytometry may be beneficial to the patient as an outpatient. Etiology unknown. This may be a result of chronic venous stasis and chronic skin changes of the lower extremities. This may also be due to chronic infection as she returned to normal on 03/23/2021. Steady decline in leukocytosis through 8. She did spend a little while in the halfway. Minimal ambulation minimal activity. - Monitor CBC Vulvar Ulceration: Differential diagnosis considered today includes aphthous ulcers, Behcet's, herpetic lesions, syphilis, chancroid/STDs. RPR has been checked. I will give her Bicillin 2.4 million units to cover for syphilis. Based on presentation these appear to be aphthous ulcers of the vulva. I will cover with topical triamcinolone to the affected lesions. No evidence of secondary infection at this time. - Triamcinolone topically 2x daily - Bactroban topically 2x daily. CHF:No BNP was done in the ER I will add this. BMI 37.6:Discussed the federal guidelines suggest a healthy goal BMI of 18.5- 24.9 for people 18 65 and 23-30 for people age 65 and older. Overweight is considered BMI 25-30, Obesity 30-40 and Morbid obesity is defined as >100 lb overweight or BMI >40. With a BMI above goal, it is recommended to utilize a d iet/exercise program to get back into the appropriate range. Consider referral to water pump operator. For BMI >40 consider referral to bariatrics. If not already monitoring intake. I would recommend at least to keep a food diary. Document everything that is consumed into a food diary. Studies have shown that patients can lose up to 2x the weight by keeping track of foods. Offered handout on weight loss techniques. Apps that may be of benefit include [employer], Lose it. Regular exercise encouraged. Start with walking 5-10 minutes at a pace that is difficult to carry a conversation. - F/U as outpatient Anemia: Normocytic anemia. These are unchanged from values on 03/23/2021. MCV remains similar at 90.7 and RDW is the same at 15.7. We will continue to monitor. - Daily CBC - Monitor for worsening. Hyponatremia:Similar finding to last hospitalization. Now at 134.3. Patient has a mild hyponatremia. We will monitor with daily CMP. - CMP daily. Hyperglycemia:Sugars <126 fasting <200 random. MOnitor w/ CMP. Goal <150.The last A1c in February was below 6 on 02/11/2021 at 5.42. - Monitor CMP daily. Depression/anxiety:Continue home medications to include Prozac 40 mg daily. Continue Atarax at bedtime. HLD: Patient is not currently on a statin. We will address this as an outpatient. Blood pressure is controlled. Home medications reviewed with patient today. She is on metoprolol succinate 25 mg daily we will continue this during hospital stay. Monitor blood pressure. Patient goal of less than 150/90 at this time as she has no history of diabetes. Essential HTN:Initial blood pressure was elevated and she has had several more elevated since then. I will add losartan 50 mg daily as ARB will be helpful with CHF. Monitor blood pressure closely. Acquired hypothyroidism: Most recent TSH 1.350 normal 02/2021. Goal TSH for patient 1-3. We will continue home medications levothyroxine 75 mcg daily. We will check a TSH morning of 05/14/2021. - TSH 05/14/21. Diet:Cardiac 1800kcl DASH DVT Prophy:40mg subcut lovenox. Nicotine dependence/Vaping: Tobacco Cessation discussed today for 2 minutes. We reviewed lifestyle choices and discussed quitting. Ready to quit status discussed. The risks and hazards of continued tobacco abuse were discussed with the patient today and total tobacco cessation as recommended. It was clearly and unambiguously explained that continued tobacco usage will adversely affect overall morbidity and mortality of the patient. Patient was informed that tobacco use can lead to numerous cancers, worsening of cardiovascular and pulmonary systems and that lung damage is often permanent and irreversible. I advised the patient to inform me if any further assistance is requested, as we can offer counseling services, nicotine replacement inhaled, patch, lozenge, gum, or prescription medications to include Chantix or Wellbutrin for assistance. I will reassess the interest in tobacco cessation at the next and all subsequent visit. - Nicotine d/w patient - Patches d/w patient. Decline Disposition:Expected length of stay 3 to 4 days. Patient has bilateral pneu monia and vulvar ulcer. Ddimer is up, CTA ordered. We also will resume abx for vanco/cefepime/levaquin. 1 dose each of azithromycin and ceftriaxone in ER. We are waiting on cultures of sputum and BC. Urine antigens ordered. CTA ordered. NT pro BNP ordered. The patient is expected to stay as noted above 3 to 4 days. She meets inpatient criteria based on port score. BP is elevated will add ARB. We will continue to work on weight. We will diurese with Lasix. We will focus on overall care. Patient has numerous medical problems that need to be addressed as an outpatient. Chronic lymphedema bilateral LE. Chronic non compliance, poor overall health. Chronic home o2 use. 74 minutes spent rounding with patient today, d/w ER, review labs, imaging, telemetry, review w/ nursing. Not including documentation time.
[2021-05-13] MEDS ORDERED: TYLENOL PO PRN (17:47)
[2021-05-13] MEDS ORDERED: LEVAQUIN 750 MG/150 ML D5W 750 MG/150 ML BAG IV SCH (18:00)
[2021-05-13] MEDS: VENTOLIN HFA (PER PUFF-WITH SPACER) IH PRN (18:02)
[2021-05-13] MEDS: ATROVENT HFA INHALER (PER PUFF-WITH SPACER) IH SCH ×2 (18:02→23:00)
[2021-05-13] MEDS: COZAAR PO SCH (18:48)
[2021-05-13] MEDS: MUCINEX PO SCH (21:18)
[2021-05-13] MEDS: SYMBICORT 160-4.5 MCG INHALER IH SCH (21:18)
[2021-05-13] MEDS: BACTROBAN TP SCH (21:18)
[2021-05-13] MEDS: ATARAX PO SCH (21:19)
[2021-05-13] MEDS: MAXIPIME 2 GM/50 ML D5W 2 GM/50 ML BAG IV SCH (21:22)
[2021-05-13] MEDS: VANCOMYCIN 1 GM in SODIUM CHLORIDE 250 ML IV SCH ×2 (22:40→23:56)
[2021-05-14] MEDS: VANCOMYCIN 1 GM in SODIUM CHLORIDE 250 ML IV SCH ×3 (01:47→21:29)
[2021-05-14] MEDS: ATROVENT HFA INHALER (PER PUFF-WITH SPACER) IH SCH ×4 (04:20→23:00)
[2021-05-14] MEDS: SYNTHROID PO SCH (05:49)
[2021-05-14 06:07] LABS: BASOPHILS # (AUTO) 0.1 K/uL (0-0.2); BASOPHILS % (AUTO) 0.3 % (0.0-3.0); EOSINOPHILS # (AUTO) 0.3 K/ul (0.0-0.7); EOSINOPHILS % (AUTO) 1.8 % (0.0-7.0); HEMATOCRIT 29.3 % (37.0-47.0); HEMOGLOBIN 9.3 g/dl (12.0-16.0); IMMATURE GRANULOCYTE # (AUTO) 0.1 (0.0-1.0); IMMATURE GRANULOCYTE % (AUTO) 0.6 % (0.0-5.0); LYMPHOCYTES # (AUTO) 1.4 K/uL (0.60-3.4); LYMPHOCYTES % (AUTO) 7.8 (10.0-50.0); MEAN CORPUSCULAR HEMOGLOBIN 28.4 pg (27.0-31.0); MEAN CORPUSCULAR HGB CONC 31.7 (31.8-35.4); MEAN CORPUSCULAR VOLUME 89.3 fl (81.0-99.0); MONOCYTES # (AUTO) 1.2 K/uL (0.4-2.0); MONOCYTES % (AUTO) 6.9 (0-10); NEUTROPHILS # (AUTO) 14.5 K/ul (2.0-6.9); NEUTROPHILS % (AUTO) 82.6 % (42.2-75.2); PLATELET COUNT 244 10^3/uL (140-440); RDW COEFFICIENT OF VARIATION 15.9 % (11.6-14.8); RED BLOOD COUNT 3.28 10^6/ul (4.20-5.40); WHITE BLOOD COUNT 17.54 K/ul (4.6-10.2)
[2021-05-14 06:26] LABS: ALANINE AMINOTRANSFERASE 11.2 U/L (0-35); ALBUMIN 3.69 g/dL (3.5-5.0); ASPARTATE AMINO TRANSFERASE 18.6 U/L (14-36); BILIRUBIN,TOTAL 1.16 mg/dL (0.2-1.3); BLOOD UREA NITROGEN 16.3 mg/dL (7-17); CALCIUM 9.37 mg/dL (8.4-10.2); CARBON DIOXIDE 31.2 mmol/L (22-30.0); CHLORIDE 95.4 mmol/L (98-107); CREATININE 1.05 mg/dL (0.60-1.30); GLUCOSE 102.6 mg/dL (74-106); POTASSIUM 3.87 mmol/L (3.5-5.1); SODIUM 132.5 mmol/L (134.5-145); TOTAL PROTEIN 6.98 g/dL (6.3-8.2)
--- NOTE | 2021-05-14 07:26 | PCM.PROG ---
Date Seen by Provider: 05/14/21 Time Seen by Provider: 07:22 Subjective: 71-year-old female hospital day #2 with pneumonia, non-COVID positive rhinovirus positive vulvar ulcers. Known history of COPD, mild exacerbation likely.Labs this morning show white count improved from 22.47-17.54 hemoglobin from 10.3-9.3 and platelets have dropped to 244 suggesting a dilutional effect. Chemistry panel chronic hyponatremia sodium has dropped minimally to 132.5, potassium stable 3.87 chloride 95.4 CO2 31.2. Glucose stable 102.6, A1c 5.50 calcium 9.37 liver enzymes remained stable. D-dimer was elevated we have ordered a CT scan however it was not done. Patient has refused influenza vaccine, pneumococcal vaccine. We attempted 18-gauge IV x2 failed patient refused to allow another attempt. Patient was up in chair similar to last admission she did not want to get out of the chair. Breath sounds diminished coarseness crackles in bilateral bases occasional productive cough yellow sputum. No pain. Telemetry in place chronic bilateral lower extremity edema red and scaly. Bilateral arms and legs are scaly. Very dry skin. Fall precautions in place. IV infiltrated patient refused to allow another attempt. She has not allowed for the CT has not allowed for additional IVs for antibiotics. We will try again 05/14/2021.Overnight vitals reviewed remains afebrile heart rate was 10 3-1 05 at admission and has now been 84 through 91 since admission. Blood pressure stable was elevated to the emergency room but stable now. Last readings 136/71 and 97/63. Respiratory rate no longer tachypneic. Was 28 in emergency room and up to 32 on the floor but now back to 20 remote telemetry reviewed sinus rhythm FL interval 1.16 and QRS interval 0.06 no evidence of bundle branch block no atypia.The patient is currently on cefepime 2 g every 12 based on renal function, Levaquin 750 IV daily, vancomycin 1 g every 12. If she refuses IV we can talk about central line. The other option would be to switch to oral antibiotics and consider discharge based on patient's stability. SIRS criteria are no longer present. Ideally I would wait until blood cultures and sputum cultures returned. However this admission is very similar to the previous one back in February where patient is refusing most care. Poor overall hygiene. Patient ID was blown this morning. Nurse Deanna was able to get a new 20-gauge in the wrist. Patient was able to have the CT scan of the chest which showed no PE. Evaluation is limited by motion artifact. No acute large/central pulmonary thromboembolism.- Bibasilar predominant bronchiectasis and peribronchial cuffing concerning for small airways disease; infectious/inflammatory.- Interval evolution of the previously noted consolidative opacities in the lung bases. Bibasilar atelectatic changes and/or resolving pneumonia.Atherosclerotic changes in the aorta and coronary arteries. CT returned at 1106. Patient has done well throughout the day today. Microbiology is still not yet back. Gram-negative coccobacilli found on sputum sent to [facility] for identification. Blood cultures negative x1 day. Possible discharge in next 24 to 48 hours with improvement. REVIEW OF SYMPTOMS: (Positives bolded) General: weight loss,fever, chills, night sweats,fatigue,appetite loss HEENT: blurry vision, eye pain, eye discharge, dry eyes, decreased vision,sore throattinnitus, bloody nose, hearing loss, sinus pain/pressure, ear pain/pressure. Respiratory: shortness of breath,cough,hemoptysis, wheezing, pleurisy,BRIGGS Cardiovascular:chest pain, PND, palpitation,edema,orthopnea,syncope, swelling of extremities Gastro:Nausea,vomiting, diarrhea, hematemesis, abdominal pain, constipation Genito:hematuria, dysuria, glycosuria, hesitancy, frequency, incontinence, +Colostomy, Apodaca Musckelo:Arthralgia, myalgia, muscle weakness, joint swelling, NSAID use Skin:rash bilateral LE chronic venous stasis/stasiis derm, pruritis,sores, nail changes, skin thickening,Dry flaky skin everywhere, Vulvar lesions, change in wart/mole, itching, rash, new lesions,pruritus, nail changes Neuro: Migraine, numbness, ataxia, tremor, vertigo,weakness, memory loss, Irritability, dizziness Endocrine:excessive thirst, polyuria, cold intolerance, heat intolerance, goiter Psychiatric: depression, anxiety, anti-depressants,alcohol abuse, drug abuse, insomnia,change in sleep pattern and mood changes Heme/lymph:easy bruising, bleeding gums, blood clots, swollen glands, lymphedema, Allergic/immune:allergic rhinitis, hay fever, asthma, hives Objective: Vital Signs - 24 hr 05/13/21 12:31 05/13/21 13:16 05/13/21 14:55 Temperature 96.4 F L Pulse Rate 105 H 88 87 Respiratory Rate 28 H 28 H 18 Blood Pressure 173/102 H 170/99 H 142/85 H O2 Sat by Pulse Oximetry 87 L 94 L 98 05/13/21 16:05 05/13/21 16:11 05/13/21 16:27 Temperature 97.5 F L Pulse Rate 103 H 89 Respiratory Rate 32 H 24 Blood Pressure 160/83 H O2 Sat by Pulse Oximetry 91 L 95 95 05/13/21 17:29 05/13/21 19:30 05/13/21 21:28 Temperature 97.5 F L 99.1 F Pulse Rate 89 91 H Respiratory Rate 24 24 20 Blood Pressure 160/83 H 136/71 O2 Sat by Pulse Oximetry 95 98 05/14/21 05:10 Temperature 96.6 F L Pulse Rate 84 Respiratory Rate 20 Blood Pressure 97/63 O2 Sat by Pulse Oximetry 95 Constitutional:Appearance-Respiratory distress NONE, Using NC, pursed lip breathing. Accessory muscle use NONE Orientation- Oriented x 3, alertBuild and Nutrition-[morbidly obese]General- Patient is pleasant and cooperative with the interview and exam. Hard of hearing is present. Dry flaky skin bilateral UE and LE. Integumentary: General-rashes bilateral UE and LE dry and scaly, ulcers along vulva unchanged (nursing present in room). Unable to evaluate buttock as patient would not stand, did not want support/assistance. Bilateral LE with chronic lymphedematous changes, chronic stasis, stasis dermatitis, hemosiderin staining. Bilateral UE dry flaking. Bilateral LE dry flaking. 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 DP pulse 1+, PT 1+.Palpation- Normal skin moisture/turgor wrists/hands/arms. thickened/coarse, dry skin beyond knees bilaterally. Skin is warm to touch, appropriate. Capillary refill is normal bilateral Upper and lower extremity. Head/Neck:Head- normocephalic and atraumatic.Neck- without visible/palpable lumps or pulsations.Palpation- No bony tenderness about head/neck along frontal, occipital, temporal, parietal, mastoid, jawline, zygoma, orbit or any other location. NO temporal artery tenderness. No TMJ tenderness. Neck Supple.Thyroid-No thyromegaly, no nodules Eye:Bilaterally PERRLA, EOMI. No discharge. Upper and lower eyelids are normal. Sclera/conjunctiva normal without discharge. Cornea is normal and clear. Lens is normal. Eyeball appears normal. No ciliary flushing, no conjunctival injection. ENMT:Oropharynx- no pharyngeal erythema, Uvula midline. No post nasal drip. No exudate.Salivary glands- Non tender to palpation CHEST/LUNG:Inspection- symmetric chest wall no pectus deformity. increased effort, Distant heart sounds. Wheezes, crackles and rhonchi throughout. E/O chronic lung related disease. Accessory muscles not utilzed at presentPalpation - nontender sternum, ribline. No abnormal pulsations.Auscultation- Breath sounds coarse throughout tracheal sounds, bronchial sounds overlying sternum, Bronchovessicular sounds between scapulae posteriorly, vessicular breath sounds heard throughout periphery.Adventitious sounds- wheezes, rales, rhonchi.throughout. Coarse. CARDIOVASCULAR:Carotid artery-normal, no bruits or abnormal pulsations. Jugular vein- no pulsations.Palpation/Percussion- Normal PMI, no palpable thrillAuscultation- Regular rate and rhythm. No murmur noted in sitting, supine positions.Extremities- no digital clubbing, cyanosis, edema, increased warmth. ABDOMEN:Inspection- normal and no visible pulsations. Normal contour. Auscultation- Bowel sounds normal, no abdominal bruits.Palpation/Percussion- soft, non-tender, no rebound tenderness, no rigidity (guarding), no jar tenderness, no masses.Ostomy site RLQ abdomen. Apodaca in place. Gastrostomy site RLQ intact c/d/i. Non tender. Peripheral Vascular:Upper extremityLeft- Normal temperature with pink nailbeds and no ulcerations.Upper extremity Right-Normal temperature with pink nailbeds and no ulcerations.Lower extremity- coarse, thickened skiin, chronic changes present. Chronic 2+ edema, pitting edema, thickened skin, scaley.Edema- 3+ pitting edema. Musculoskeletal:Generalized-No generalized swelling or edema of upper extremities, Lower extremities as noted above. Limited ROM of bilateral shoulders/hips. Limited ambulation. 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 Limited ROM of knees and ankles as well due to chronic changes in skin. Neurological:General- Moves all 4 extremities minimally. ROM hips/shoulders reduced. Symmetrical face and body posture.Cranial nerves- individually evaluated II-XII and intact. PERRLA, Normal EOMI, visual/special senses appear intact, Face is symmetrical and normal sensation/movement, normal tongue, normal strength/posture of neck musculature. Neuropsych:Oriented- Person, place, time. (AAOx3),Mood/affect- normal and congruent. Able to articulate well.Speech-Normal speech, normal rate, normal tone, normal use of language, volume and coherence.Thought content- normal with ability to perform basic computations and apply abstract thought/reason. Associations- intact, no SI/HI, no hallucinations, delusions, obsessions. Judgment/insight- Appropriate.Memory-Recall intact, remote and recent memory intact.Knowledge- Age appropriate fund of knowledge, concentration and attention span normal. Lymphatic: Head/Neck- normal size and non tender to palpation. (1) Pneumonia: Status: Acute Code(s): J18.9 - Pneumonia, unspecified organism SNOMED Code(s): 234335807 (2) Pseudomonas infection: Status: Acute Code(s): A49.8 - Other bacterial infections of unspecified site SNOMED Code(s): 00607432 (3) SIRS (systemic inflammatory response syndrome): Status: Acute Code(s): R65.10 - Systemic inflammatory response syndrome (SIRS) of non-infectious origin without acute organ dysfunction SNOMED Code(s): 433920538 (4) Body mass index (BMI) of 40.1 to 44.9 in adult: Status: Acute Code(s): Z68.41 - Body mass index [BMI] 40.0-44.9, adult SNOMED Code(s): 024559647 (5) Hyponatremia: Status: Acute Code(s): E87.1 - Hypo-osmolality and hyponatremia SNOMED Code(s): 62083891 (6) Hyperglycemia: Status: Acute Code(s): R73.9 - Hyperglycemia, unspecified SNOMED Code(s): 46948983 (7) Elevated d-dimer: Status: Acute Code(s): R79.89 - Other specified abnormal findings of blood chemistry SNOMED Code(s): 740377339 (8) Acquired hypothyroidism: Status: Acute Code(s): E03.9 - Hypothyroidism, unspecified SNOMED Code(s): 246799633 (9) Venous stasis: Status: Acute Code(s): I87.8 - Other specified disorders of veins SNOMED Code(s): 62637789 (10) Electronic cigarette use: Status: Acute Code(s): Z78.9 - Other specified health status SNOMED Code(s): 685829652 (11) care home resident: Status: Acute Code(s): Z59.3 - Problems related to living in residential institution SNOMED Code(s): 218256816 (12) Vulvar ulcer: Status: Acute Code(s): N76.6 - Ulceration of vulva SNOMED Code(s): 36571633 (13) Rhinovirus: Status: Acute Code(s): B34.8 - Other viral infections of unspecified site SNOMED Code(s): 40889932 Plan: Pneumonia/normal procalcitonin/ SIRS/History of COPD: Hospital Day #2 pneumonia and vulvar ulcers. Recent abx use w/ hospital stay 03/01- through 03/05. Pneumonia on imaging. CT today no PE, bronchiectasis noted, peribronchial cuffing noded, small airway disease noted. Evolution of consolidative opacities. Bibasilar atelectatic changes and or resolving pneumonia. She is on Day #2 of vancomycin 1g q12 hours, cefepime 2gram q12 hours, levaquin 75mg IV. She had sputum culture with G- cocobacili. Urine ag testing not yet back. She has improved through night, WBC improving and VSS. Hemodiluation likely observed with the CBC. She lost her IV overnight. New one placed this am. I discussed if unable to resume the peripheral IV, we can try central line and or consider change to oral (linezolid and levaquin). She was adamant about not returning [facility], wants to go back home. SIRS criteria no longer present. Current coverage abx for pseudomonas/MRSA. We will await urine Ag, await culture C+S. Labs daily q am as ordered. Continue monitoring tele. Continue monitoring patient. Will add Prednisone 40mg PO daily x 5days. This will start am tomorrow. Improved when compared to 05/13/21. - Admit to inpatient status - Telemetery - am cbc/cmp - F/U with sputum and blood cultures. - Colostomy care - DASH diet encouraged. - OOB, incentive spirometry - Albuterol q 4 hours prn - Lovenox 40 mg subcutaneously daily for DVT Prophy -Continue budesonide Po medication. Continue Mucinex twice daily - Add prednisone daily 40mg. Start 05/15/21. Venous stasis/stasis dermatitis/lymphedema: Poor health overall. Legs are chronically edematous, chronically thickened scales and she has evidence of chronic lymphedema. I do not suspect any secondary infection. At last hospitalization she refused to elevate legs refused to get in the hospital bed. This is the trend again. We will try to keep the legs elevated. History of Pseudomonas skin infection. Covering pneumonia for pseudomonal process. So far no area to culture. We will continue to monitor. Leukocytosis:Peripheral smear and possibly flow cytometry may be beneficial to the patient as an outpatient. However this is likely due to chronic infection within lungs and or legs. Specific Etiology unknown. This may be a result of chronic venous stasis and chronic skin changes of the lower extremities as noted. This may also be due to chronic infection as her WBC returned to normal on 03/23/2021. Steady decline in leukocytosis through last hospital stay on abx, then she returned to >20 with this hospital stay. - Monitor CBC Vulvar Ulceration:Differential diagnosis considered remains unchanged. Aphthous ulcers, Behcet's, herpetic lesions, syphilis, chancroid/STDs. RPR has been checked. She received Bicillin 2.4 million units on day 1 to cover for syphilis. Based on presentation these appear to be aphthous ulcers of the vulva. Continue to cover with topical triamcinolone to the affected lesions. No evidence of secondary infection at this time. - Triamcinolone topically 2x daily - Bactroban topically 2x daily. CHF:No BNP was done in the ER, This returned as 90.20 and normal. NO e/o acute CHF exacerbation. BMI 37.6:Discussed weight loss/diet. Discussed need for portion control, DASH diet. - F/U as outpatient Anemia: Normocytic anemia. Dilutional effect overnight. We will continue to monitor. - Daily CBC - Monitor for worsening. Hyponatremia:Similar finding to last hospitalization. 132.5 today. We will repeat CMP in am tomorrow. Patient has a mild hyponatremia. We will monitor with daily CMP. - CMP daily. Hyperglycemia:Sugars <126 fasting <200 random. Monitor w/ CMP daily. Goal <150. A1C returned 5.50 and normal> She reports never diabetic historically. - Monitor CMP daily. Depression/anxiety:Continue home medications to include Prozac 40 mg daily. Continue Atarax at bedtime. Stable. HLD: Patient is not currently on a statin. We will address this as an outpatient. Blood pressure is controlled. Essential HTN:Initial blood pressure was elevated and she has had several more elevated since then. However today BP have all been stable and look great. - Monitor BP Acquired hypothyroidism: Most recent TSH 0.577 05/13/21. Goal TSH for patient 1- 3. Diet:Cardiac 1800kcl DASH DVT Prophy:40mg subcut lovenox. Nicotine dependence/Vaping: We reviewed lifestyle choices and discussed quitting. Ready to quit status discussed. The risks and hazards of continued tobacco abuse were discussed with the patient today and total tobacco cessation as recommended. It was clearly and unambiguously explained that continued tobacco usage will adversely affect overall morbidity and mortality of the patient. Patient was informed that tobacco use can lead to numerous cancers, worsening of cardiovascular and pulmonary systems and that lung damage is often permanent and irreversible. I advised the patient to inform me if any further assistance is requested, as we can offer counseling services, nicotine replacement inhaled, patch, lozenge, gum, or prescription medications to include Chantix or Wellbutrin for assistance. I will reassess the interest in tobacco cessation at the next and all subsequent visit. - Nicotine d/w patient - Patches d/w patient. Decline Disposition:71 yr CF HD #2, abx vancomycin day 2/5, levaquin day 2/5, cefepime 2g q 12 day 2/5. She had SPutum grow G- coccobacilli, awaiting results. BC negative. Labs improving. Sodium mild reduction. Vitals \normalized. They were able to get a new IV in wrist today. She had CT which showed improvement, no PE. Expected length of stay 1-2 days. Patient has bilateral pneumonia and vulvar ulcer. We will resume abx for vanco/cefepime/levaquin and likely change to levaquin/linezolid at d/c unless sputum culture gives us specifics. We are waiting on cultures of sputum and BC. Urine antigens ordered/pending. NT pro BNP returned normal. Monitor daily weight. The patient is expected to stay as noted above another few days. She meets inpatient criteria based on port score. She refuses tx back to [facility], adamant about desire to go home. BP was elevated added ARB and BP has looked great. We will continue to focus and work on weight/skin hygiene. We will continue to diurese with Lasix. We will focus on overall care. Patient has numerous medical problems that need to be addressed as an outpatient. Chronic lymphedema bilateral LE. Will add prednisone 40mg daily x 5 days. Chronic non compliance, poor overall health. Chronic home o2 use. 36 minutes spent rounding with patient today, d/w ER, review labs, imaging, telemetry, review w/ nursing. Not including documentation time.
[2021-05-14] MEDS ORDERED: ROCEPHIN 1 GM VIAL IM SCH (09:00)
[2021-05-14] MEDS ORDERED: ROCEPHIN 1 GM VIAL 1 GM in SODIUM CHLORIDE 100ML 100 ML IV SCH (09:00)
[2021-05-14] MEDS ORDERED: LIDOCAINE HCL 1% SDV IM SCH (09:00)
[2021-05-14] MEDS ORDERED: ZITHROMAX 500 MG in SODIUM CHLORIDE 250 ML IV SCH (09:00)
[2021-05-14] MEDS: MICRO-K CAP PO SCH (10:49)
[2021-05-14] MEDS: MUCINEX PO SCH ×2 (10:49→20:30)
[2021-05-14] MEDS: MAXIPIME 2 GM/50 ML D5W 2 GM/50 ML BAG IV SCH ×2 (10:49→20:31)
[2021-05-14] MEDS: TOPROL XL PO SCH (10:49)
[2021-05-14] MEDS: SYMBICORT 160-4.5 MCG INHALER IH SCH ×2 (10:50→20:32)
[2021-05-14] MEDS: KENALOG 0.1% TP PRN (10:50)
[2021-05-14] MEDS: PROZAC PO SCH (10:50)
[2021-05-14] MEDS: VITAMIN D PO SCH (10:50)
[2021-05-14] MEDS: COZAAR PO SCH (10:50)
[2021-05-14] MEDS: BACTROBAN TP SCH ×2 (10:51→20:32)
[2021-05-14] MEDS: LOVENOX SUBCUT SCH (10:51)
[2021-05-14] MEDS: VENTOLIN HFA (PER PUFF-WITH SPACER) IH PRN ×3 (11:12→23:00)
--- NOTE | 2021-05-14 11:21 | CT ---
EXAM: Chest CTA with contrast 05/14/2021 HISTORY: Elevated D-dimer. TECHNIQUE: Axial CT images were obtained through the chest with the administration of intravenous con trast in accordance with the PE protocol. Coronal, bilateral oblique and sagittal reformatted images were also submitted for interpretation. 3D/MIP images of the pulmonary vasculature were also genera phill. COMPARISON: Chest radiograph 05/13/21. CT chest 03/01/2021 FINDINGS: The pulmonary arteries are normal in size. No acute large/central pulmonary thromboembolism. There is no evidence of right heart strain. Lower neck is within normal limits. Major airways are patent. Bibasilar predominant bronchiectasis and peribronchial cuffing concerning for small airways disease. No pneumothorax or pleural fluid. C alcified granulomas. Interval evolution of the previously noted consolidative opacities in the lung bases. Bibasilar atelectatic changes and/or resolving pneumonia. Atelectasis in the lingula. The heart size is normal without pericardial effusion. The thoracic aorta is normal in size. Atheros clerotic changes in the aorta and coronary arteries. No lymphadenopathy. Calcified mediastinal hilar lymph nodes likely representing sequela of old granu lomatous disease. The visualized portions of the abdomen demonstrates calcified granulomas in the spleen. Incompletely visualized is a bowel containing right lateral wall abdominal hernia. Soft tissue structures are unremarkable. The bones are intact. IMPRESSION: - Evaluation is limited by motion artifact. - No acute large/central pulmonary thromboembolism. - Bibasilar predominant bronchiectasis and peribronchial cuffing concerning for small airways disease ; infectious/inflammatory. - Interval evolution of the previously noted consolidative opacities in the lung bases. Bibasilar at electatic changes and/or resolving pneumonia. - Atherosclerotic changes in the aorta and coronary arteries. All CT scans are performed using dose optimization techniques as appropriate to the performed exam an d include at least one of the following: Automated exposure control, adjustment of the mA and/or kV according t o size, and the use of iterative reconstruction technique.
[2021-05-14] MEDS: ATARAX PO SCH (20:30)
[2021-05-14] MEDS ORDERED: LEVAQUIN 750 MG/150 ML D5W 750 MG/150 ML BAG IV SCH (21:00)
[2021-05-15] MEDS: ATROVENT HFA INHALER (PER PUFF-WITH SPACER) IH SCH ×2 (04:40→11:32)
[2021-05-15] MEDS: VENTOLIN HFA (PER PUFF-WITH SPACER) IH PRN ×2 (04:40→11:31)
[2021-05-15 05:16] LABS: BASOPHILS # (AUTO) 0.1 K/uL (0-0.2); BASOPHILS % (AUTO) 0.4 % (0.0-3.0); EOSINOPHILS # (AUTO) 0.6 K/ul (0.0-0.7); EOSINOPHILS % (AUTO) 4.7 % (0.0-7.0); HEMATOCRIT 28.8 % (37.0-47.0); HEMOGLOBIN 8.9 g/dl (12.0-16.0); IMMATURE GRANULOCYTE # (AUTO) 0.1 (0.0-1.0); IMMATURE GRANULOCYTE % (AUTO) 0.4 % (0.0-5.0); LYMPHOCYTES # (AUTO) 1.3 K/uL (0.60-3.4); LYMPHOCYTES % (AUTO) 9.4 (10.0-50.0); MEAN CORPUSCULAR HGB CONC 30.9 (31.8-35.4); MEAN CORPUSCULAR VOLUME 90.6 fl (81.0-99.0); MONOCYTES # (AUTO) 0.9 K/uL (0.4-2.0); MONOCYTES % (AUTO) 6.7 (0-10); NEUTROPHILS # (AUTO) 10.6 K/ul (2.0-6.9); NEUTROPHILS % (AUTO) 78.4 % (42.2-75.2); PLATELET COUNT 271 10^3/uL (140-440); RDW COEFFICIENT OF VARIATION 15.9 % (11.6-14.8); RED BLOOD COUNT 3.18 10^6/ul (4.20-5.40); WHITE BLOOD COUNT 13.57 K/ul (4.6-10.2)
[2021-05-15 05:30] LABS: ALANINE AMINOTRANSFERASE 12.4 U/L (0-35); ALBUMIN 3.41 g/dL (3.5-5.0); ALKALINE PHOSPHATASE 93.2 U/L (53-141); BILIRUBIN,TOTAL 0.58 mg/dL (0.2-1.3); BLOOD UREA NITROGEN 16.8 mg/dL (7-17); CALCIUM 9.27 mg/dL (8.4-10.2); CARBON DIOXIDE 33.7 mmol/L (22-30.0); CHLORIDE 98.4 mmol/L (98-107); CREATININE 1.09 mg/dL (0.60-1.30); GLUCOSE 113.6 mg/dL (74-106); POTASSIUM 3.72 mmol/L (3.5-5.1); SODIUM 134.5 mmol/L (134.5-145); TOTAL PROTEIN 6.64 g/dL (6.3-8.2)
[2021-05-15] MEDS: SYNTHROID PO SCH (05:49)
[2021-05-15] MEDS ORDERED: PREDNISONE PO SCH (08:30)
[2021-05-15] MEDS ORDERED: LEVAQUIN PO SCH (08:30)
--- NOTE | 2021-05-15 09:11 | PCM.DC ---
Final Diagnosis: 1. Pneumonia/SIRS 2. Vulva ulcer likely aphthous ulcers (treated with 2.4million units PCN to cover syphilis, RPR pending) 3. Leukocytosis 4. Anemia 5. Morbid obesity 6. Tobacco abuse/Vape 7. Lymphedema 8. Dry skin 9. Ostomy. 10. Elevated d dimer negative CTA 11. Essential HTN Chronic 12. CHF chronic 13. Chronic venous stasis/dermatitis 14. HLD 15. Hypothyroidism 16. Deconditioning 17. Weakness/limited ability to care for self (1) Pneumonia: Status: Acute Code(s): J18.9 - Pneumonia, unspecified organism SNOMED Code(s): 912763911 (2) Pseudomonas infection: Status: Acute Code(s): A49.8 - Other bacterial infections of unspecified site SNOMED Code(s): 75802584 (3) SIRS (systemic inflammatory response syndrome): Status: Acute Code(s): R65.10 - Systemic inflammatory response syndrome (SIRS) of non-infectious origin without acute organ dysfunction SNOMED Code(s): 702103871 (4) Body mass index (BMI) of 40.1 to 44.9 in adult: Status: Acute Code(s): Z68.41 - Body mass index [BMI] 40.0-44.9, adult SNOMED Code(s): 472131612 (5) Hyponatremia: Status: Acute Code(s): E87.1 - Hypo-osmolality and hyponatremia SNOMED Code(s): 65787875 (6) Hyperglycemia: Status: Acute Code(s): R73.9 - Hyperglycemia, unspecified SNOMED Code(s): 38474803 (7) Elevated d-dimer: Status: Acute Code(s): R79.89 - Other specified abnormal findings of blood chemistry SNOMED Code(s): 327587394 (8) Acquired hypothyroidism: Status: Acute Code(s): E03.9 - Hypothyroidism, unspecified SNOMED Code(s): 782870474 (9) Venous stasis: Status: Acute Code(s): I87.8 - Other specified disorders of veins SNOMED Code(s): 10098842 (10) Electronic cigarette use: Status: Acute Code(s): Z78.9 - Other specified health status SNOMED Code(s): 510727572 (11) [facility] resident: Status: Acute Code(s): Z59.3 - Problems related to living in residential institution SNOMED Code(s): 678084367 (12) Vulvar ulcer: Status: Acute Code(s): N76.6 - Ulceration of vulva SNOMED Code(s): 28087977 (13) Rhinovirus: Status: Acute Code(s): B34.8 - Other viral infections of unspecified site SNOMED Code(s): 61410072 Reason for Hospitalization: 1. SOA, worsening 2. Pneumonia 3. New Vulvar ulcerations 4. Leukocytosis improving 5. anemia worse (monitor) CBC and CMP on 05/18/21 OV on 05/19/21 w/ Dr. Zepeda 1400 Prognosis/Condition at Discharge: Breathing stabilized/optimized Pneumonia treatment started W/U for vulva ulcers underway tx for chance of syphilis although aphthous ulcer of vulva most likely Poor skin hygiene chronic/unchanged Poor vascular access Overall medically optimized for outpatient therapy. Medications at Discharge: Ambulatory Orders Medication Instructions Recorded nystatin 100,000 unit/gram topical 1 applic TOPICAL TID PRN #60 gm 02/27/20 powder (Nystop) guaifenesin 600 mg tablet, 600 mg PO BID #14 tab 04/28/20 extended release 12 hr (Mucinex) cholecalciferol (vitamin D3) 25 25 mcg PO QDAY 07/30/20 mcg (1,000 unit) capsule diphenhydramine HCl 25 mg capsule 25 mg PO Q6H PRN 09/10/20 (Benadryl) multivitamin 1 tab PO QAM 09/10/20 mupirocin 2 % topical ointment 1 applic TOPICAL BID #22 g 01/22/21 meclizine 25 mg tablet 25 mg PO BID PRN #60 tab 01/25/21 budesonide-formoterol HFA 160 2 puff INHALATION BID #10.2 g 01/27/21 mcg-4.5 mcg/actuation aerosol inhaler (Symbicort) metoprolol succinate 25 mg 25 mg PO QDAY #90 tab 02/08/21 tablet,extended release 24 hr levothyroxine 75 mcg capsule 75 mcg PO QDAY #90 cap 02/12/21 ipratropium bromide 17 2 puff INHALATION Q6H #12.9 g 03/05/21 mcg/actuation HFA aerosol inhaler (Atrovent HFA) fluoxetine 40 mg capsule (Prozac) 40 mg PO QDAY #90 cap 04/15/21 hydroxyzine HCl 50 mg tablet 50 mg PO QHS #90 tab 04/15/21 albuterol sulfate 90 mcg/actuation 2 puff INHALATION Q4-6H PRN #18 g 05/06/21 aerosol inhaler (Ventolin HFA) furosemide 20 mg tablet 20 mg PO QAM #90 tab 05/06/21 potassium chloride 10 mEq 10 meq PO DAILY 05/13/21 tablet,extended release levofloxacin 750 mg tablet 750 mg PO DAILY 7 Days #4 tab 05/15/21 losartan 25 mg tablet 50 mg PO DAILY 30 Days #60 tab 05/15/21 prednisone 20 mg tablet 40 mg PO DAILYWM 5 Days #10 tab 05/15/21 triamcinolone acetonide 0.1 % 1 applic TOPICAL BID PRN 7 Days #1 05/15/21 topical cream ea Lab/Diagnostics: Laboratory Last Values WBC 13.57 K/ul (4.6-10.2) H 05/15/21 04:42 RBC 3.18 10^6/ul (4.20-5.40) L 05/15/21 04:42 Hgb 8.9 g/dl (12.0-16.0) L 05/15/21 04:42 Hct 28.8 % (37.0-47.0) L 05/15/21 04:42 MCV 90.6 fl (81.0-99.0) 05/15/21 04:42 MCH 28.0 pg (27.0-31.0) 05/15/21 04:42 MCHC 30.9 (31.8-35.4) L 05/15/21 04:42 RDW Coeff of [place] 15.9 % (11.6-14.8) H 05/15/21 04:42 Plt Count 271 10^3/uL (140-440) 05/15/21 04:42 Immature Gran % (Auto) 0.4 % (0.0-5.0) 05/15/21 04:42 Neut % (Auto) 78.4 % (42.2-75.2) H 05/15/21 04:42 Lymph % (Auto) 9.4 (10.0-50.0) L 05/15/21 04:42 [place] % (Auto) 6.7 (0-10) 05/15/21 04:42 Eos % (Auto) 4.7 % (0.0-7.0) 05/15/21 04:42 Baso % (Auto) 0.4 % (0.0-3.0) 05/15/21 04:42 Neut # (Auto) 10.6 K/ul (2.0-6.9) H 05/15/21 04:42 Lymph # (Auto) 1.3 K/uL (0.60-3.4) 05/15/21 04:42 [place] # (Auto) 0.9 K/uL (0.4-2.0) 05/15/21 04:42 Eos # (Auto) 0.6 K/ul (0.0-0.7) 05/15/21 04:42 Baso # (Auto) 0.1 K/uL (0-0.2) 05/15/21 04:42 Immature Gran # (Auto) 0.1 (0.0-1.0) 05/15/21 04:42 PT 11.8 SEC (9.3-11.0) H 05/13/21 13:02 INR 1.14 SI (0.0-3.9) 05/13/21 13:02 APTT 28.1 SEC (23.9-40.0) 05/13/21 13:02 Puncture Site L rad 05/13/21 12:51 Base Excess 9.9 (-2.0-3.0) H 05/13/21 12:51 O2 Saturation 93.1 % (94-98) L 05/13/21 12:51 ABG pH 7.42 (7.35-7.45) 05/13/21 12:51 ABG pCO2 53.0 mmHg (35-45) H 05/13/21 12:51 ABG pO2 66.0 mmHg (85-100) L 05/13/21 12:51 ABG HCO3 34.4 (21-28) H 05/13/21 12:51 ABG Total CO2 36.0 (19-24) H 05/13/21 12:51 Cm Test Y 05/13/21 12:51 Hemoglobin 1.5 (0-1.5) 05/13/21 12:51 Oxyhemoglobin 92.0 % (95-100) L 05/13/21 12:51 Carboxyhemoglobin 2.6 (0.5-1.5) H 05/13/21 12:51 Total Hemoglobin 10.5 g/dl (11.7-17.4) L 05/13/21 12:51 O2 Delivery Device Cannula 05/13/21 12:51 Oxygen Liter Flow 4.00 05/13/21 12:51 Sodium 134.5 mmol/L (134.5-145) 05/15/21 04:42 Potassium 3.72 mmol/L (3.5-5.1) 05/15/21 04:42 Chloride 98.4 mmol/L (98-107) 05/15/21 04:42 Carbon Dioxide 33.7 mmol/L (22-30.0) H 05/15/21 04:42 Anion Gap 6.12 05/15/21 04:42 BUN 16.8 mg/dL (7-17) 05/15/21 04:42 Creatinine 1.09 mg/dL (0.60-1.30) 05/15/21 04:42 Estimated GFR (MDRD) 49.00 mL/min 05/15/21 04:42 BUN/Creatinine Ratio 15.41 05/15/21 04:42 Glucose 113.6 mg/dL (74-106) H 05/15/21 04:42 Hemoglobin A1c 5.50 (4.0-6.0) 05/14/21 06:00 Lactic Acid 1.70 mmol/L (0.7-2.1) 05/13/21 13:02 Uric Acid 5.42 mg/dL (2.5-6.2) 05/13/21 13:02 Calcium 9.27 mg/dL (8.4-10.2) 05/15/21 04:42 Magnesium 2.05 mg/dL (1.6-2.3) 05/13/21 13:02 Total Bilirubin 0.58 mg/dL (0.2-1.3) 05/15/21 04:42 AST 23.0 U/L (14-36) 05/15/21 04:42 ALT 12.4 U/L (0-35) 05/15/21 04:42 Alkaline Phosphatase 93.2 U/L (53-141) 05/15/21 04:42 Total Creatine Kinase 66.0 U/L (30-135) 05/13/21 13:02 Troponin I < 0.012 ng/ml (0.0000-0.120) 05/13/21 13:02 NT-Pro-B Natriuret Pep 90.200 pg/mL (0-124) 05/13/21 13:02 Total Protein 6.64 g/dL (6.3-8.2) 05/15/21 04:42 Albumin 3.41 g/dL (3.5-5.0) L 05/15/21 04:42 Globulin 3.23 05/15/21 04:42 Albumin/Globulin Ratio 1.05 05/15/21 04:42 Lipase 16.7 U/L (23-300) L 05/13/21 13:02 Procalcitonin 0.16 ng/mL (0.09) H 05/13/21 13:02 TSH 0.577 uIU/L (0.465-4.68) 05/13/21 13:02 D-Dimer 582.40 ng/mL (<500) H 05/13/21 13:02 Urine Color Dark (YELLOW) 05/13/21 14:10 Urine Clarity Clear (CLEAR) 05/13/21 14:10 Urine pH 7.0 (5-9) 05/13/21 14:10 Ur Specific [place] 1.025 (1.005-1.030) 05/13/21 14:10 Urine Protein 2+ (NEGATIVE) H 05/13/21 14:10 Urine Glucose (UA) Negative (NEGATIVE) 05/13/21 14:10 Urine Ketones Negative (NEGATIVE) 05/13/21 14:10 Urine Blood 1+ (NEGATIVE) H 05/13/21 14:10 Urine Nitrite Negative (NEGATIVE) 05/13/21 14:10 Urine Bilirubin 1+ (NEGATIVE) H 05/13/21 14:10 Urine Urobilinogen 4.0 (0.2) H 05/13/21 14:10 Ur Leukocyte Esterase Negative (NEGATIVE) 05/13/21 14:10 Urine Microscopic RBC 2-5 (0-2) 05/13/21 14:10 Urine Microscopic WBC 0-2 (0-2) 05/13/21 14:10 Ur Squamous Epith Cells 0-2 (0-5) 05/13/21 14:10 Urine Mucus 2+ (NOT PRESENT) 05/13/21 14:10 Urine Opiates Screen Negative (NEGATIVE) 05/13/21 13:05 Ur Oxycodone Screen Negative (NEGATIVE) 05/13/21 13:05 Urine Methadone Screen Negative (NEGATIVE) 05/13/21 13:05 Ur Propoxyphene Screen Negative (NEGATIVE) 05/13/21 13:05 Ur Barbiturates Screen Negative (NEGATIVE) 05/13/21 13:05 U Tricyclic Antidepress Negative (NEGATIVE) 05/13/21 13:05 Ur Phencyclidine Scrn Negative (NEGATIVE) 05/13/21 13:05 Ur Amphetamine Screen Negative (NEGATIVE) 05/13/21 13:05 U Methamphetamines Scrn Negative (NEGATIVE) 05/13/21 13:05 U Benzodiazepines Scrn Positive (NEGATIVE) H 05/13/21 13:05 Urine Cocaine Screen Negative (NEGATIVE) 05/13/21 13:05 U Cannabinoids Screen Negative (NEGATIVE) 05/13/21 13:05 RPR Non reactive (Non Reactive) 05/13/21 13:02 Adenovirus (PCR) Not detected (NOT DETECT) 05/13/21 13:05 B. pertussis DNA (PCR) Not detected (NOT DETECT) 05/13/21 13:05 B.parapertussis DNA PCR Not detected (NOT DETECT) 05/13/21 13:05 C. pneumoniae DNA (PCR) Not detected (NOT DETECT) 05/13/21 13:05 Coronavirus OC43 (PCR) Not detected (NOT DETECT) 05/13/21 13:05 Coronavirus HKU1 (PCR) Not detected (NOT DETECT) 05/13/21 13:05 Coronavirus 229E (PCR) Not detected (NOT DETECT) 05/13/21 13:05 Coronavirus NL63 (PCR) Not detected (NOT DETECT) 05/13/21 13:05 Human Metapneumovir PCR Not detected (NOT DETECT) 05/13/21 13:05 Influenza Type A (PCR) Not detected (NOT DETECT) 05/13/21 13:05 Influ A Molecular Assay Negative by naat (NEGATIVE) 05/13/21 13:05 Influenza B (RT-PCR) Not detected (NOT DETECT) 05/13/21 13:05 Influ B Molecular Assay Negative by naat (NEGATIVE) 05/13/21 13:05 M. pneumoniae (PCR) Not detected (NOT DETECT) 05/13/21 13:05 Parainfluenza 1 (PCR) Not detected (NOT DETECT) 05/13/21 13:05 Parainfluenza 2 (PCR) Not detected (NOT DETECT) 05/13/21 13:05 Parainfluenza 3 (PCR) Not detected (NOT DETECT) 05/13/21 13:05 Parainfluenza 4 (PCR) Not detected (NOT DETECT) 05/13/21 13:05 RSV (PCR) Not detected (NOT DETECT) 05/13/21 13:05 Entero/Rhino (PCR) Detected (NOT DETECT) H 05/13/21 13:05 SARS-CoV-2 (PCR) Not detected (NOT DETECT) 05/13/21 13:05 CT Chest: 05/14/21 IMPRESSION: - Evaluation is limited by motion artifact. - No acute large/central pulmonary thromboembolism. - Bibasilar predominant bronchiectasis and peribronchial cuffing concerning for small airways disease; infectious/inflammatory. - Interval evolution of the previously noted consolidative opacities in the lung bases. Bibasilar atelectatic changes and/or resolving pneumonia. - Atherosclerotic changes in the aorta and coronary arteries. PENDING LABS Urine ag for S. Pneumonia and Legionella Sputum culture final G- coccobacilli likely H. Influenza (levaquin will cover) Blood culture 1/2 + likely staph epi, awaiting final. (Likely contaminant) Otherwise back to baseline and ready for d/c. Education Provided to Patient and Family: 1. Pneumonia 2. Levaquin R/B/A to meds d/w patient, SE reviewed, handout offered regarding medications listed. 3. Anemia 4. Leukocytosis 5. Skin hygiene 6. Pending labs 7. Vape safety cessation encouraged 8. Weight loss encouraged/obesity education 9. DASH diet 10. When to return to ED> Follow-ups: 05/19/[address] Zepeda 2 pm Discharge Disposition: Home Hospital Course: 71-year-old female hospital day #3 admitted on May 13 and discharged on May 15, [address] Zepeda. Patient was admitted for shortness of breath, pneumonia and vulvar ulcers. Initial chest ray in the emergency room suggested opacity in the left lung base represent pleural effusion with adjacent atelectasis and or pneumonia. Initial labs supported this diagnosis with an initial white blood cell count of 22.47 and a predominant neutrophilia of 87.6 and a lymphocytopenia. Chronic anemia 10.3 normocytic. This needs to be addressed as an outpatient. Patient was given Rocephin and azithromycin in the ER. Blood cultures and sputum cultures were collected. I admitted patient to the floor got urine antigen tests and changed her antibiotics to cefepime, vancomycin and Levaquin. I noted that her D-dimer was elevated and ordered a CT but was unable to get this due to the size of IV. Her skin is poor and she had very poor vascular access. On the morning of May 14 she was able to get access and CT showed no thromboembolism, bronchiectasis peribronchial cuffing evolution of the consolidative opacities suggesting bibasilar atelectasis and/or resolving pneumonia. Subsequently 1 of 2 blood cultures became positive with cocci which I suspect is a contaminant with staph epi lab is addressing this today. Additionally she lost IV access refused another IV refused central line and I will change her to oral Levaquin. Patient wants to go home on May 15 and I will prepare for discharge. Sputum culture grew gram-negative coccobacilli which is highly consistent with haemophilus influenza and Levaquin will cover this. I had considered discharge with linezolid as well. I do not believe I require the MRSA coverage at this time. Additionally, Levaquin should provide coverage for Pseudomonas if this grows. Labs this morning showed CBC white blood cell count 13.57, hemoglobin 8.9 and platelets 271. Still with a predominant neutrophilia. Chemistry panel stable. Sodium 134.5, potassium 3.72, chloride 98.4 glucose 113.6 GFR 49 creatinine 1.09. Day of discharge vital signs looked okay blood pressure was a little bit low I will back down on the losartan dose to 25 mg. Remains afebrile. Heart rate within normal limits blood pressure on the lower end of normal again I will lower the losartan as she is 110/59 and 91/53. O2 saturations on 4 L 96 to 97%. She will remain on this at home. Telemetry overnight reviewed and she remains in sinus rhythm with normal QRS interval of 10 6-0.08 and [place] intervals of point 1-2.16. Reviewed overnight nursing notes As well as input and output data. Patient has had 3 voids in the last 24 hours no bowel movements. Chronic obesity BMI 37.9. I was called at 5:00 this morning about the lack of vascular access and patient's refusal for further IV. Patient wants to go home. In light of the patient's wishes and the limitations for IV access I believe switching to oral antibiotics and discharge home is reasonable. I will switch to oral Levaquin and adjust oral antibiotics as needed based on return of labs. Patient feels she can sleep better at home anyway. Medically optimized for d/c. Will f/u with the pending cultures and adjust as needed. When to return d/w patient. Labs 05/18 and oV with me on 05/19/20. Day of D/C vitals Vital Signs - 24 hr 05/14/21 09:40 05/14/21 10:00 05/14/21 12:00 Temperature 98.4 F 98.2 F Pulse Rate 87 85 Respiratory Rate 18 20 Blood Pressure 101/66 104/66 O2 Sat by Pulse Oximetry 99 96 95 05/14/21 13:37 05/14/21 16:00 05/14/21 18:00 Temperature 98.3 F 98.0 F Pulse Rate 85 82 Respiratory Rate 18 16 Blood Pressure 121/64 100/59 L O2 Sat by Pulse Oximetry 97 98 96 05/14/21 21:26 05/15/21 04:41 05/15/21 05:42 Temperature 98.2 F 98.2 F Pulse Rate 76 73 Respiratory Rate 18 18 Blood Pressure 110/59 L 91/53 L O2 Sat by Pulse Oximetry 97 97 96 Constitutional:Appearance- No Respiratory distress, asleep on entry legs elevated, NC 4L chronic/home o2. Patient remains in bedside chair. Hard of hearing. Skin unchanged bilateral lower extremities. Chronic lymphedematous changes, scaling, poor care overall. Accessory muscle not used today.Orie ntation- Oriented x 3, alertBuild and Nutrition-[morbidly obese]General- Patient is cooperative with the interview and exam. I noted plan to go home today on oral abx. "ooh" is there no other way I can stay. We had discussed vascular access, likely going to change to PO levaquin anyway based on culture results/data and thus with her WBC improving, vitals stable and feeling better that likely best option was home w/ strict instructions to call/return if worsening. Integumentary: General-rashes, ulcers unchanged. Vulvar ulcer to be treated as OP with traimcinolone. bilateral UE dry, scaly, thickened. LE lymphedematous changes 3+ PE to bilateral knees. Still unable to evaluate buttock as patient would not stand, would not get into the bed, would not leave bedside chair, would not sit forward to allow me to evaluate. Bilateral LE with chronic lymphedematous changes, chronic stasis, stasis dermatitis, hemosiderin staining. 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 DP pulse 1+, PT 1+.Palpation- Normal skin moisture/turgor wrists/hands/arms. thickened/coarse, dry skin beyond knees bilaterally. Skin is warm to touch, appropriate. Capillary refill is normal bilateral Upper and lower extremity. Eye:Bilaterally PERRLA, EOMI. No discharge. Upper and lower eyelids are normal. Sclera/conjunctiva normal without discharge. Cornea is normal and clear. Lens is normal. Eyeball appears normal. No ciliary flushing, no conjunctival injection. ENMT:Nose and sinus- No sinus tenderness along frontal/maxillary region. External appearance normal and midline.Nares- bilateral quiet airflow, no discharge.Nasal mucosa- No bleeding noted and no ulcerations observed. Kidron, moist. Turbinates non boggy.Lips-normal color, moist without cracks/lesions Oral Cavity/Palate- hard/soft palate intact without lesions, oral mucosa pink and moist. Dentition assessed [] and discussed appropriate oral care. Tongue normal midline.Oropharynx- no pharyngeal erythema, Uvula midline. No post nasal drip. No exudate.Salivary glands- Non tender to palpation CHEST/LUNG:Inspection- symmetric chest wall no pectus deformity. increased effort, Distant heart sounds. Wheezes, crackles and rhonchi throughout. E/O chronic lung related disease. Accessory muscles utilzed.Palpation- nontender sternum, ribline. No abnormal pulsations.Auscultation- Breath sounds coarse throughout tracheal sounds, bronchial sounds overlying sternum, Bronchovessicular sounds between scapulae posteriorly, vessicular breath sounds heard throughout periphery.Adventitious sounds- wheezes, rales, rhonchi.throughout. Coarse. CARDIOVASCULAR:Carotid artery-normal, no bruits or abnormal pulsations. Jugular vein- no pulsations.Palpation/Percussion- Normal PMI, no palpable thrillAuscultation- Regular rate and rhythm. No murmur noted in sitting, supine positions.Extremities- no digital clubbing, cyanosis, increased warmth. NO e/o infection. +Edema. ABDOMEN:Inspection- normal and no visible pulsations. Normal contour.Auscultat ion- Bowel sounds normal, no abdominal bruits.Palpation/Percussion- soft, non- tender, no rebound tenderness, no rigidity (guarding), no jar tenderness, no masses.Ostomy site RLQ abdomen. Peripheral Vascular:Upper extremityLeft- Normal temperature with pink nailbeds and no ulcerations.Upper extremity Right-Normal temperature with pink nailbeds and no ulcerations.Lower extremity- coarse, thickened skiin, chronic changes present. Chronic 2+ edema, pitting edema, thickened skin, scaley.Edema- 3+ bilateral LE pitting edema. Musculoskeletal:Generalized-Limited ROM of bilateral shoulders/hips. Limited ambulation. 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 Limited ROM shoulders, Limited ROM of knees and ankles as well due to chronic changes in skin. Decreased effort. Patient performs minimal activities. Neurological:General- Moves all 4 extremities symmetrically. Symmetrical face and body posture.Cranial nerves- individually evaluated II-XII and intact. PERRLA, Normal EOMI, visual/special senses appear intact, Face is symmetrical and normal sensation/movement, normal tongue, normal strength/posture of neck musculature. Neuropsych:Oriented- Person, place, time. (AAOx3),Mood/affect- Minimally involved. Flat.Speech-Normal speech, normal rate, normal tone,Associations- intact, no SI/HI, no hallucinations, delusions, obsessions.Judgment/insight- Limited. Lymphatic: Head/Neck- normal size and non tender to palpation. Plan: 1. Pneumonia improving, lost IV access. Oral abx to start 05/15/21. Levaquin 750mg daily start 05/16/21. Will f/u w/ results of pending cultures. 2. CBC/CMP on 05/18/21 3. F/U with DR. Zepeda on 05/19/21 at 1400 4. Smoking and Vaping Cessation Encouraged 5. Skin hygiene encouraged, lotion skin 2x daily 6. Apply steroid cream to vulva rash only 1-2x daily. 7. Monitor for worsening. 8. F/U in the emergency room if worsening condition. 9. Resume home meds. 10. Avoid all tobacco. Discharge time 37 minutes. not including documentation. Talked with nursing, reviewed telemetry, reviewed labs, imaging, overnight vitals, overnight data. D/w in person am nursing.
[2021-05-15] MEDS: COZAAR PO SCH (10:05)
[2021-05-15] MEDS: MICRO-K CAP PO SCH (10:05)
[2021-05-15] MEDS: VITAMIN D PO SCH (10:05)
[2021-05-15] MEDS: TOPROL XL PO SCH (10:05)
[2021-05-15] MEDS: PROZAC PO SCH (10:05)
[2021-05-15] MEDS: SYMBICORT 160-4.5 MCG INHALER IH SCH (10:06)
[2021-05-15] MEDS: MUCINEX PO SCH (10:06)
[2021-05-15] MEDS: BACTROBAN TP SCH (10:07)
[2021-05-15] MEDS: KENALOG 0.1% TP PRN (10:07)
[2021-05-15] MEDS: LOVENOX SUBCUT SCH (10:10)
[2021-05-15 14:37] VITALS: BP 117/65; TEMP 97.9
[2021-05-18 15:12] LABS: BACTERIA IDENTIFICATION Final report (.)
== END 2021-05-15 15:20 | disposition home or self-care (01) | DRG 194 ==
LOC: ED 12:30 → MEDSURG A 15:38
PROVIDERS: ADMIT Family Medicine; ATTEND Family Medicine
DX: R79.89 Other specified abnormal findings of blood chemistry; Z86.16 Personal history of COVID-19; Z20.822 Contact with and (suspected) exposure to COVID-19; R65.10 Systemic inflammatory response syndrome (SIRS) of non-infectious origin without acute organ dysfunction; N76.6 Ulceration of vulva; I50.9 Heart failure, unspecified; I87.2 Venous insufficiency (chronic) (peripheral); B34.8 Other viral infections of unspecified site; A49.8 Other bacterial infections of unspecified site; F17.200 Nicotine dependence, unspecified, uncomplicated; I87.8 Other specified disorders of veins; E03.9 Hypothyroidism, unspecified; R73.9 Hyperglycemia, unspecified; D64.9 Anemia, unspecified; E87.1 Hypo-osmolality and hyponatremia; Z68.41 Body mass index [BMI] 40.0-44.9, adult; I10 Essential (primary) hypertension; Z78.9 Other specified health status; D72.829 Elevated white blood cell count, unspecified; I89.0 Lymphedema, not elsewhere classified; Z93.3 Colostomy status; J18.9 Pneumonia, unspecified organism; R53.1 Weakness; E66.01 Morbid (severe) obesity due to excess calories

== ENCOUNTER 2022-11-18 10:41 | Observation (INO) ==
[2022-11-18 10:55] VITALS: BMI 35.1
--- NOTE | 2022-11-18 11:20 | ED.PDOC ---
General ED Provider: Dr. KENYA RITTER DO Chief Complaint: Respiratory Complaint Stated Complaint: Patient is a 72 yo F here for R sided chest wall pain for 2 weeks Patient afebrile and vitally stable arrives by ems No interventions en route She denies falls or injuires She is wearing baseline home oxygen at 4 L No sick contacts No recent surgeries She has no provoking or pallaiting factors She denies headache, chills, sob, abdominal pain or dysuria Paitent stable and pleasant to speak wiht She called EMS because she has trouble getting around in her wheelchair Time Seen by Provider: 11/18/22 10:51 Information Source: Patient and EMT Primary Care Provider: LUIS MIGUEL FONG MD Nursing and Triage Documentation Reviewed and Agree: Yes Does patient meet sepsis criteria?: No System Inflammatory Response Syndrome: Not Applicable Sepsis Protocol: For patient's 13 years and over: Temp is 96.8 and below OR 101 and greater Pulse >90 BPM Resp >20/minute Acutely Altered Mental Status Are patient's symptoms suggestive of a new infection, such as: -Pneumonia -Skin, Soft Tissue -Endocarditis -UTI -Bone, Joint Infection -Implantable Device -Acute Abdominal Infection -Wound Infection -Meningitis -Blood Stream Catheter Infection -Unknown Review of Systems Review Of Systems Constitutional: Denies Chills or Fever Eyes: Denies Blindness or Blurred vision Ears, Nose, Mouth, Throat: Denies Ear pain or Ear discharge Respiratory: Denies Cough or Shortness of Breath Cardiac: Reports Chest pain; Denies Lightheadedness GI: Denies Abdominal pain, Constipated or Diarrhea : Denies Burning, Dysuria or Discharge Musculoskeletal: Denies Back pain or Joint pain Skin: Denies Bruising or Rash Neurological: Denies Anxiety or Depressed Endocrine: Reports No symptoms Hematologic/Lymphatic: Reports No symptoms All Other Systems: Reviewed and Negative [facility] Medical History Anemia Bilateral lower leg cellulitis BPV (benign positional vertigo) CHF (congestive heart failure) Chronic obstructive pulmonary disease Chronic respiratory failure with hypoxia, on home oxygen therapy Chronic venous stasis dermatitis of both lower extremities Colostomy present on admission (~05/16/19) COVID-19 Decreased mobility and endurance Diverticular disease Edema of both lower extremities due to peripheral venous insufficiency Elevated white blood cell count, unspecified Generalized anxiety disorder History of epistaxis Hyperlipidemia Hypertension, essential, benign Hypothyroidism Major depressive disorder, recurrent, unspecified Morbid obesity with BMI of 40.0-44.9, adult On home oxygen therapy Stasis dermatitis of both legs Tobacco abuse disorder Tobacco use Venous insufficiency (chronic) (peripheral) Vitamin D deficiency Social History (Updated 10/21/21 @ 10:21 by BILLIE KEVIN) Smoking and tobacco status: Current every day smoker Tobacco type: cigarettes Smoking cigarettes per day: 2 Years smoked: 52 Tobacco: How many years used: 50 Quit status: has quit before Second hand smoke exposure: Yes Smoking risk assessment performed: No Alcohol intake: never Details: I have had 1 cigarette in 3 days. Substance use type: does not use Yanira/quaker: ISLAM Special yanira needs: No Agree to transfusion: Yes Adopted: Yes Caregiver/support person: Yes Household members: children Housing: house Marital status: W / Lives independently: No (lives with family) Number of children: 4 Number of grandchildren: 11 Highest education level completed: some college, no degree Financial difficulty paying for basics: not applicable service: No Current occupational status: retired Current occupational exposures/hazards: No Pets and animals: Yes Leisure activites: other History of recent travel: No Sexually active: No Do you think of yourself as: straight/heterosexual Current gender identity: female Seatbelt use: never Helmet use: No (N/A) Drives intoxicated or rides with intoxicated 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: No Current diet type/program: regular Caffeine: Yes Water heater temperature set < 120 degrees: Yes Working smoke detector in home: Yes Fire extinguisher in home: Yes Carbon monoxide detector in home: Yes Firearms in home: No Surgical History History of section (Unknown) History of intestinal surgery History of tubal ligation Female Reproductive History Menstrual Hx Hysterectomy: No Hx Tubal Ligation: Yes Physical Exam Physical Exam Appearance: Reports Well-appearing, Well-nourished and Obese Ill-appearing: Not Applicable Pain Distress: Mild Eyes: Reports JM, EOMI and Conjunctiva clear ENT: Reports Ears normal and Other (Face mask in place) Neck: Supple Respiratory: Reports Airway patent and Breath sounds clear; Denies Crackles or Rhonchi Cardiovascular: Reports RRR; Denies No rub or No murmur GI/: Reports Soft, Nontender and Other (Central abdominal obeisty) Musculoskeletal: Reports Normal strength and ROM intact Skin: Reports Warm, Dry and Other (gao hung stasis bronzing) Neurological: Reports Sensation intact and Motor intact Psychiatric: Reports Affect appropriate and Mood appropriate Interpretation EKG Interpretation Time of EKG #1: 11:05 Rate: Normal Rhythm: Sinus Ectopy: None [place]: NL ST Segment: Normal Interpretation: NSR rate 84 no qt prolongation no stemi Radiology Interpretation Radiology Interpretation By: ED Physician Radiology Results: Negative Exam Interpreted: CXR Xray Comments: no pneumothorax no consolidaitons Critical Care Note Critical Care Note Total Critical Care Time (mins): 0 Course Course 11/18/22 11:10 11/18/22 11:10 Orders, Labs, Meds: Lab Review 11/18/22 11:10 WBC 9.30 RBC 3.95 L Hgb 10.1 L Hct 33.3 L MCV 84.3 MCH 25.6 L MCHC 30.3 L RDW Coeff of [place] 16.0 H Plt Count 198 Immature Gran % (Auto) 0.4 Neut % (Auto) 74.3 Lymph % (Auto) 15.3 [place] % (Auto) 4.0 Eos % (Auto) 5.7 Baso % (Auto) 0.3 Neut # (Auto) 6.9 Lymph # (Auto) 1.4 [place] # (Auto) 0.4 Eos # (Auto) 0.5 Baso # (Auto) 0.0 Immature Gran # (Auto) 0.0 Sodium 134.8 Potassium 3.62 Chloride 92.3 L Carbon Dioxide 35.8 H Anion Gap 10.32 BUN 15.3 Creatinine 1.33 H Estimated GFR (MDRD) 39.00 BUN/Creatinine Ratio 11.50 Glucose 120.3 H Lactic Acid 1.64 Calcium 9.16 Total Bilirubin 0.61 AST 24.0 ALT 13.1 Alkaline Phosphatase 93.7 Troponin I < 0.012 NT-Pro-B Natriuret Pep 69 Total Protein 7.69 Albumin 4.08 Globulin 3.61 Albumin/Globulin Ratio 1.13 TSH 1.150 Free T4 1.38 D-Dimer 932.61 H Orders Category Date Time Status OBSERVATION [PLACE PATIENT OBSERVATION] .TO MEDSURG ADMISSION 11/18/22 14:12 Ordered (NON-MONITORED BED) EKG-(ED ONLY) Stat CARDIO 11/18/22 10:51 Completed NPO REMINDER: IMAGING ONCE CARE 11/18/22 12:32 Completed CBC W/ AUTO DIFF Stat LAB 11/18/22 11:10 Completed COMPREHENSIVE METABOLIC PANEL Stat LAB 11/18/22 11:10 Completed D-DIMER Stat LAB 11/18/22 11:10 Completed FREE T4 (FREE THYROXINE) Stat LAB 11/18/22 11:10 Completed LACTIC ACID Stat LAB 11/18/22 11:10 Completed PROBNP ED [NT-PROBNP(ED)] Stat LAB 11/18/22 11:10 Completed TROPONIN I Stat LAB 11/18/22 11:10 Completed TROPONIN I Stat LAB 11/18/22 14:10 Ordered TSH [THYROID STIMULATING HORMONE] Stat LAB 11/18/22 11:10 Completed Doxycycline Hyclate Meds 11/18/22 14:10 Discontinued 100 mg PO ONCE ONE CT CHEST PE PROTOCOL Stat RADS 11/18/22 12:32 Completed CXR [CHEST, 2 VIEWS PA & LAT] Stat RADS 11/18/22 10:52 Completed Medications Discontinued Medications Generic Name Dose Route Start Last Admin Trade Name Freq PRN Reason Stop Dose Admin Doxycycline Hyclate 100 mg 11/18/22 14:10 Doxycycline Hyclate 100 Mg Capsule PO 11/18/22 14:11 ONCE ONE Vital Signs: Temp Pulse Resp BP Pulse Ox 11/18/22 10:47 99.2 F 86 22 H 138/[address] PE ordered for elevated d dimer and chest pain MDM: Patient is a 72 yo F here for R rib pain Patient afebrile and vitally stable on home baseline 4 L nasal canula Exam reassuring '3+ labs and 3+ images reviewed by me Consults to Hospitalist for observation to trend tropeolins Doxycycline here for RLL pneumonia WDX: Right rib pain, elevated d dimer, pneumonia, discomfort acute condition moderate complexity DDX: I considered sepsis, shock, ACS, PE but these were not found SDOH: Patient has PCP and family support We discussed all findings Patient declined discharge on abx and wishes to stay for observation to ensure no cardiac problems by trending troponin, initial negative Patient stable passed PO challenge KYARA Risk Score KYARA Risk Score: Risk Score Odds of by 30D 0 0.1 (0.1-0.2) 1 0.3 (0.2-0.3) 2 0.4 (0.3-0.5) 3 0.7 (0.6-0.9) 4 1.2 (1.0-1.5) 5 2.2 (1.9-2.6) 6 3.0 (2.5-3.6) 7 4.8 (3.8-6.1) Discharge Plan Discharge Patient Disposition: PLACED OBSERVATION Discharge Problem: Rib pain on right side, Pleural effusion, left, Anemia, D-dimer, elevated, Pneumonia Did you review [place] [employer]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
[2022-11-18 11:21] LABS: BASOPHILS % (AUTO) 0.3 % (0.0-3.0); EOSINOPHILS # (AUTO) 0.5 K/ul (0.0-0.7); EOSINOPHILS % (AUTO) 5.7 % (0.0-7.0); HEMATOCRIT 33.3 % (37.0-47.0); HEMOGLOBIN 10.1 g/dl (12.0-16.0); IMMATURE GRANULOCYTE % (AUTO) 0.4 % (0.0-5.0); LYMPHOCYTES # (AUTO) 1.4 K/uL (0.60-3.4); LYMPHOCYTES % (AUTO) 15.3 (10.0-50.0); MEAN CORPUSCULAR HEMOGLOBIN 25.6 pg (27.0-31.0); MEAN CORPUSCULAR HGB CONC 30.3 (31.8-35.4); MEAN CORPUSCULAR VOLUME 84.3 fl (81.0-99.0); MONOCYTES # (AUTO) 0.4 K/uL (0.4-2.0); NEUTROPHILS # (AUTO) 6.9 K/ul (2.0-6.9); NEUTROPHILS % (AUTO) 74.3 % (42.2-75.2); PLATELET COUNT 198 10^3/uL (140-440); RED BLOOD COUNT 3.95 10^6/ul (4.20-5.40)
[2022-11-18 11:59] LABS: ALANINE AMINOTRANSFERASE 13.1 U/L (0-35); ALBUMIN 4.08 g/dL (3.5-5.0); ALKALINE PHOSPHATASE 93.7 U/L (53-141); BILIRUBIN,TOTAL 0.61 mg/dL (0.2-1.3); BLOOD UREA NITROGEN 15.3 mg/dL (7-17); CALCIUM 9.16 mg/dL (8.4-10.2); CARBON DIOXIDE 35.8 mmol/L (22-30.0); CHLORIDE 92.3 mmol/L (98-107); CREATININE 1.33 mg/dL (0.60-1.30); GLUCOSE 120.3 mg/dL (74-106); POTASSIUM 3.62 mmol/L (3.5-5.1); SODIUM 134.8 mmol/L (134.5-145); TOTAL PROTEIN 7.69 g/dL (6.3-8.2)
[2022-11-18 12:11] LABS: TROPONIN I < 0.012 ng/ml (0.0000-0.120)
--- NOTE | 2022-11-18 12:32 | DI ---
EXAM: CHEST RADIOGRAPH TECHNIQUE: Two views of the chest. COMPARISON: 07/09/2021 HISTORY: Right chest pain FINDINGS: The heart and mediastinum are stable. A small left pleural effusion is suspected. Otherwise, the misael gs and pleural spaces are unchanged. No acute abnormality of the bones or soft tissues is identified. IMPRESSION: Stable exam with a small left pleural effusion
--- NOTE | 2022-11-18 13:52 | CT ---
EXAM: CHEST CTA WITH CONTRAST (PULMONARY ARTERY) HISTORY: Elevated D-dimer. Chest pain. TECHNIQUE: CTA acquisition of the chest from the thoracic inlet to the upper abdomen following IV con trast administration timed to filling of the pulmonary artery. 3D/MIP/VR images were utilized. COMPARISON: CT pulmonary angiogram 05/14/2021. FINDINGS: Lines, Tubes, Devices: None. Pulmonary arteries: - Diagnostic quality: Adequate. - Central(Main/Lobar/Interlobar): No embolus. - Peripheral (Segmental/Subsegmental): No embolus. - Right ventricle/Left ventricle ratio (normal <0.9): Normal. - Main pulmonary artery: Normal caliber. Lung Parenchyma, Pleura, and Airways: Small amount of secretions and the a right main bronchus. Thic kening of the peripheral airways and scattered mucus plugging. Tree in bud nodules in the right lower lobe. Rounded atelectasis and calcified granuloma in the right lower lobe. No pleural effusion. Thoracic Inlet, Mediastinum, and Mildred: Thyroid gland is unremarkable. Calcified granulomas in the med iastinal and hilar lymph nodes. Heart, Vessels, and Pericardium: Scattered atherosclerotic calcifications of the aorta. Coronary porsche ry calcifications. No cariomegaly. No pericardial effusion. Bones and Soft Tissues: No acute osseous abnormality. No mass or adenopathy. Upper Abdomen: Partially imaged bowel containing hernia in the right upper quadrant. Calcified granu gege in the spleen. IMPRESSION: No pulmonary embolus. Infectious/inflammatory bronchiolitis versus aspiration, most pronounced in the right lower lobe. Rounded atelectasis and calcified granuloma in the right lower lobe. All CT scans are performed using dose optimization techniques as appropriate to the performed exam an d include at least one of the following: Automated exposure control, adjustment of the mA and/or kV according t o size, and the use of iterative reconstruction technique.
--- NOTE | 2022-11-18 14:09 | PCM ---
Date of Service Date Seen by Provider: 11/18/22 Time Seen by Provider: 14:45 Admit Day/Time Admission Date: 11/18/22 Admission Time: 14:12 Reason for Admission Chief Complaint: PNEUMONIA Hospital Provider Hospital Provider: Prasanna Tse PA-C, [facility] [place] [facility] Phys[place] Primary Care Physician: LUIS MIGUEL FONG MD History of Present Illness History of Present Illness: Patient is a 72-year-old female with past medical history of COPD on 3 to 4 L chronically, heart failure, hypothyroidism, hypertension, GERD, venous stasis, depression who presents for right-sided chest wall pain for the past 2 weeks and cough. She feels her breathing is at baseline and may be slightly worse. She feels the swelling in her legs is at baseline. She denies any left-sided chest pain. She describes it as right-sided, sharp and stabbing, and worse with deep breaths. She denies any nausea or vomiting. No fever. In the ER she was found to have infectious/inflammatory bronchiolitis versus aspiration, most pronounced in the right lower lobe. Labs overall unremarkable other than elevated d dimer. She was given doxycycline for pneumonia. Denies difficulty swallowing or recent choking while eating or drinking. Patient is overall deconditioned. She states she wears 3 to 4 L at all times. She states that she typically gets around in her wheelchair. She can transfer from wheelchair to bedside commode and then back. Otherwise she does not typically ambulate. Case Discussed With Case Discussed With: Patient's case was discussed with the ER Physicians, Dr. Mott. [facility] Medical History Bilateral lower leg cellulitis L03.116 - Cellulitis of left lower limb (ICD-10) BPV (benign positional vertigo) H81.13 - Benign paroxysmal vertigo, bilateral (ICD-10) Chronic obstructive pulmonary disease J44.9 - Chronic obstructive pulmonary disease, unspecified (ICD-10) Chronic respiratory failure with hypoxia, on home oxygen therapy J96.11 - Chronic respiratory failure with hypoxia (ICD-10) Z99.81 - Dependence on supplemental oxygen (ICD-10) Chronic venous stasis dermatitis of both lower extremities I87.2 - Venous insufficiency (chronic) (peripheral) (ICD-10) Colostomy present on admission (~05/16/19) Z93.3 - Colostomy status (ICD-10) COVID-19 U07.1 - COVID-19 (ICD-10) Decreased mobility and endurance Z74.09 - Other reduced mobility (ICD-10) Diverticular disease K57.90 - Diverticulosis of intestine, part unspecified, without perforation or abscess without bleeding (ICD-10) Edema of both lower extremities due to peripheral venous insufficiency I87.2 - Venous insufficiency (chronic) (peripheral) (ICD-10) Elevated white blood cell count, unspecified D72.829 - Elevated white blood cell count, unspecified (ICD-10) Generalized anxiety disorder F41.1 - Generalized anxiety disorder (ICD-10) History of epistaxis Z87.898 - Personal history of other specified conditions (ICD-10) Hypothyroidism E03.9 - Hypothyroidism, unspecified (ICD-10) Major depressive disorder, recurrent, unspecified F33.9 - Major depressive disorder, recurrent, unspecified (ICD-10) Morbid obesity with BMI of 40.0-44.9, adult E66.01 - Morbid (severe) obesity due to excess calories (ICD-10) Z68.41 - Body mass index [BMI] 40.0-44.9, adult (ICD-10) On home oxygen therapy Z99.81 - Dependence on supplemental oxygen (ICD-10) Stasis dermatitis of both legs I87.2 - Venous insufficiency (chronic) (peripheral) (ICD-10) Tobacco abuse disorder Z72.0 - Tobacco use (ICD-10) Tobacco use Z72.0 - Tobacco use (ICD-10) Venous insufficiency (chronic) (peripheral) I87.2 - Venous insufficiency (chronic) (peripheral) (ICD-10) Vitamin D deficiency E55.9 - Vitamin D deficiency, unspecified (ICD-10) Surgical History History of section (Unknown) Z98.891 - Other specified postprocedural states (ICD-10) History of intestinal surgery Z98.890 - Other specified postprocedural states (ICD-10) History of tubal ligation Z98.51 - Tubal ligation status (ICD-10) Social History Smoking and tobacco status: Current every day smoker Tobacco type: cigarettes Smoking cigarettes per day: 2 Years smoked: 52 Tobacco: How many years used: 50 Quit status: has quit before Second hand smoke exposure: Yes Smoking risk assessment performed: No Alcohol intake: never Details: I have had 1 cigarette in 3 days. Substance use type: does not use Yanira/christian: AMISH Special yanira needs: No Agree to transfusion: Yes Adopted: Yes Caregiver/support person: Yes Household members: children Housing: house Marital status: W / Lives independently: No (lives with family) Number of children: 4 Number of grandchildren: 11 Highest education level completed: some college, no degree Financial difficulty paying for basics: not applicable service: No Current occupational status: retired Current occupational exposures/hazards: No Pets and animals: Yes Leisure activites: other History of recent travel: No Sexually active: No Do you think of yourself as: straight/heterosexual Current gender identity: female Seatbelt use: never Helmet use: No (N/A) Drives intoxicated or rides with intoxicated sales route driver: No Current diet type/program: regular Caffeine: Yes Water heater temperature set < 120 degrees: Yes Working smoke detector in home: Yes Fire extinguisher in home: Yes Carbon monoxide detector in home: Yes Firearms in home: No Allergies Allergies Allergy/AdvReac Type Severity Reaction Status Date / Time No Known Allergies Allergy Unknown Uncoded 10/21/21 10:25 Current Medications Home Medications metoprolol succinate 25 mg tablet,extended release 24 hr 25 mg PO QDAY #90 tabs 09/08/21 [Rx Confirmed 11/18/22 Last Taken Unknown] hydroxyzine HCl 50 mg tablet 50 mg PO QHS #90 tabs 10/08/21 [Rx Confirmed 11/18/22 Last Taken Unknown] levothyroxine 75 mcg tablet 75 mcg PO QDAY #90 tabs 10/08/21 [Rx Confirmed 11/18/22 Last Taken Unknown] furosemide 20 mg tablet 20 mg PO QAM #90 tabs 11/10/21 [Rx Confirmed 11/18/22 Last Taken Unknown] Symbicort 160 mcg-4.5 mcg/actuation HFA aerosol inhaler (budesonide-formoterol) See Rx Instructions .Route .COMPLEX #10.2 grams 05/03/22 [Rx Confirmed 11/18/22 Last Taken Unknown] albuterol sulfate 90 mcg/actuation aerosol inhaler (Ventolin HFA) See Rx Instructions .Route .COMPLEX #18 grams 10/26/22 [Rx Confirmed 11/18/22 Last Taken Unknown] omeprazole 20 mg capsule,delayed release 20 mg PO BID 11/18/22 [History Confirmed 11/18/22 Last Taken Unknown] potassium chloride 20 mEq/15 mL oral liquid 20 meq PO BID 11/18/22 [History Confirmed 11/18/22 Last Taken Unknown] sertraline 50 mg tablet 50 mg PO .hs 11/18/22 [History Confirmed 11/18/22 Last Taken Unknown] Home Albuterol Sulfate (Albuterol Sulfate 8 Gm Inhaler) 2 puff IH Q4-6H PRN PRN Reason: SHORTNESS OF BREATH/WHEEZING Budesonide/Formoterol Fumarate (Budesonide/Formoterol Fumarate 160/4.5 Mcg Inhaler) 2 puff IH BID [facility] Enoxaparin Sodium (Enoxaparin Sodium 40 Mg/0.4 Ml Syr) 40 mg SUBCUT DAILY [facility] Fluconazole (Fluconazole 150 Mg Tablet) 150 mg PO DAILY [facility] Furosemide (Furosemide 20 Mg Tablet) 20 mg PO DAILY [facility] CEFTRIAXONE/D5W 1 GM PREMIX (Rocephin 1 Gm/50 Ml D5w) 1 gm in 50 mls @ 75 mls/hr IV DAILY [facility] Stop: 11/21/22 15:59 Azithromycin 500 mg/ Sodium (Chloride) 250 mls @ 125 mls/hr IV DAILY [facility] Stop: 11/21/22 08:59 Levothyroxine Sodium (Levothyroxine Sodium 75 Mcg Tablet) 75 mcg PO QDAY [facility] Methylprednisolone Sodium Succinate (Methylprednisolone Sod Succ/Pf 125 Mg/2 Ml Vial) 40 mg IVP Q12HR [facility] Metoprolol Succinate (Metoprolol Succinate 25 Mg Tab.Er.24h) 25 mg PO QDAY [facility] Omeprazole (Omeprazole 20 Mg Capsule.Dr) 20 mg PO BIDAC [facility] Potassium Chloride (Potassium Chloride 40 Meq/30 Ml Cup) 20 meq PO BID [facility] Sertraline HCl (Sertraline Hcl 50 Mg Tablet) 50 mg PO .[facility] Discontinued Medications Doxycycline Hyclate (Doxycycline Hyclate 100 Mg Capsule) 100 mg PO ONCE ONE Stop: 11/18/22 14:11 Last Admin: 11/18/22 14:53 Dose: Not Given Review of Systems Constitutional: Reports Fatigue and Weakness; Denies Fever Head: Reports Normocephalic and Atraumatic Eyes: Denies Vision Changes Ears: Denies Pain or Drainage Nose: Reports Congestion; Denies Post Nasal Drip Throat: Denies Sore Throat or Difficulty Swallowing Cardiovascular: Reports Chest pain (right lateral side) and Edema (chronic ); Denies Chest Pressure Respiratory: Reports Cough and Shortness of air (chronic ) Gastrointestinal: Denies Nausea or Vomiting Genitourinary: Reports Other (+yeast, chronic ); Denies Dysuria or Frequency Dermatologic: Reports Rashes (yeast in folds and groin ) Neurological: Denies Dizziness, Syncope or Seizure Psychiatric: Reports Depression; Denies Anxiety Physical examination Most Recent Vital Signs: Most Recent Vital Signs Temperature 99.2 F 11/18/22 10:47 Temperature Source Oral 11/18/22 10:47 Pulse Rate 86 11/18/22 10:47 Respiratory Rate 22 H 11/18/22 10:47 Blood Pressure 138/80 11/18/22 10:47 O2 Sat by Pulse Oximetry 97 11/18/22 10:47 Height 5 ft 3 in 11/18/22 10:47 Weight 198 lb 6.656 oz 11/18/22 10:47 Telemetry Heart Rate 65 05/15/21 07:00 Telemetry SPO2 97 05/14/21 01:00 Appearance: Positive Alert and Oriented x3 and Ill-Appearing Skin: Positive Rashes (yeast rash in folds and under breasts. No secondary infection noted. No sign of rash over area of pain on right lateral chest wall such as shingles. ) HEENT: Positive Normocephalic and Atraumatic Neck: Positive Supple and Midline Trachea Chest/Lungs: Positive Clear to Auscultation Bilaterally and Other (diminished cole ); Negative Rales, Rhonci or Wheezes Heart: Positive RRR GI/: Positive Soft, Nontender, Bowel Sounds Normal and No Distention Extremities: Positive Edema (skin changes consistent with chronic venous stasis of cole lower ext. Very thick redness scaling skin. ) Neurological: Positive Cranial Nerves Intact, Alert, Oriented and Other (+generalized weakness, deconditioned ) Psychiatric: Positive Oriented x4, Appropriate Mood and Appropriate Affect Labs This Visit Labs This Visit: Labs This Visit 11/18/22 11:10 WBC 9.30 RBC 3.95 L Hgb 10.1 L Hct 33.3 L MCV 84.3 MCH 25.6 L MCHC 30.3 L RDW Coeff of [place] 16.0 H Plt Count 198 Immature Gran % (Auto) 0.4 Neut % (Auto) 74.3 Lymph % (Auto) 15.3 [place] % (Auto) 4.0 Eos % (Auto) 5.7 Baso % (Auto) 0.3 Neut # (Auto) 6.9 Lymph # (Auto) 1.4 [place] # (Auto) 0.4 Eos # (Auto) 0.5 Baso # (Auto) 0.0 Immature Gran # (Auto) 0.0 Sodium 134.8 Potassium 3.62 Chloride 92.3 L Carbon Dioxide 35.8 H Anion Gap 10.32 BUN 15.3 Creatinine 1.33 H Estimated GFR (MDRD) 39.00 BUN/Creatinine Ratio 11.50 Glucose 120.3 H Lactic Acid 1.64 Calcium 9.16 Total Bilirubin 0.61 AST 24.0 ALT 13.1 Alkaline Phosphatase 93.7 Troponin I < 0.012 NT-Pro-B Natriuret Pep 69 Total Protein 7.69 Albumin 4.08 Globulin 3.61 Albumin/Globulin Ratio 1.13 TSH 1.150 Free T4 1.38 D-Dimer 932.61 H Imaging Imaging: EXAM: CHEST RADIOGRAPH TECHNIQUE: Two views of the chest. COMPARISON: 07/09/2021 HISTORY: Right chest pain FINDINGS: The heart and mediastinum are stable. A small left pleural effusion is suspected. Otherwise, the lungs and pleural spaces are unchanged. No acute abnormality of the bones or soft tissues is identified. IMPRESSION: Stable exam with a small left pleural effusion EXAM: CHEST CTA WITH CONTRAST (PULMONARY ARTERY) HISTORY: Elevated D-dimer. Chest pain. TECHNIQUE: CTA acquisition of the chest from the thoracic inlet to the upper abdomen following IV contrast administration timed to filling of the pulmonary artery. 3D/MIP/VR images were utilized. COMPARISON: CT pulmonary angiogram 05/14/2021. FINDINGS: Lines, Tubes, Devices: None. Pulmonary arteries: - Diagnostic quality: Adequate. - Central(Main/Lobar/Interlobar): No embolus. - Peripheral (Segmental/Subsegmental): No embolus. - Right ventricle/Left ventricle ratio (normal <0.9): Normal. - Main pulmonary artery: Normal caliber. Lung Parenchyma, Pleura, and Airways: Small amount of secretions and the a right main bronchus. Thickening of the peripheral airways and scattered mucus plugging. Tree in bud nodules in the right lower lobe. Rounded atelectasis and calcified granuloma in the right lower lobe. No pleural effusion. Thoracic Inlet, Mediastinum, and Mildred: Thyroid gland is unremarkable. Calcified granulomas in the mediastinal and hilar lymph nodes. Heart, Vessels, and Pericardium: Scattered atherosclerotic calcifications of the aorta. Coronary artery calcifications. No cariomegaly. No pericardial effusion. Bones and Soft Tissues: No acute osseous abnormality. No mass or adenopathy. Upper Abdomen: Partially imaged bowel containing hernia in the right upper quadrant. Calcified granulomas in the spleen. IMPRESSION: No pulmonary embolus. Infectious/inflammatory bronchiolitis versus aspiration, most pronounced in the right lower lobe. Rounded atelectasis and calcified granuloma in the right lower lobe. Infectious/inflammatory bronchiolitis versus aspiration, most pronounced in the right lower lobe. Labs overall unremarkable. Review Statement Review Statement: I have independently reviewed and interpreted the labs/EKGs/imaging that were ordered by the ER provider. I have reviewed all outside records that are available currently in our EMR including imaging/notes/labs from previous vi sits. Plan Plan: 1. Acute infectious bronchiolitis, right - Pt denies symptoms of aspiration. With patient's underlying COPD will go ahead and cover atypicals with azithromycin. Will also treat with rocephin. 2. Pleurisy - Will give solumedrol, will avoid toradol in this elderly pt with elevated Cr. 3. Chronic respiratory failure - Baseline O2 requirements. RT consult. Continue inhalers. 4. COPD - Doesn't appear to be in exacerbation. Continue home inhalers. 5. Hypertension - Continue home meds 6. Gerd - Continue home meds 7. Heart failure, unknown type - No echo in system. Not exacerbated. Continue home lasix and potassium. DVT Prophylaxis: Lovenox Time Spent: Greater than 80 minutes spent with patient, 50% of the time spent with this patient was devoted to counseling and coordination of care. [facility] minutes spent discussing advance care planning. FULL CODE. Smoking Cessation: 3 minutes spent discussing smoking cessation. Admit to: Obs Discussed Plan of Care with Dr. Latisha Kelley.
[2022-11-18] MEDS: DOXYCYCLINE HYCLATE PO ONE ×2 (14:51→14:53)
[2022-11-18] MEDS ORDERED: VENTOLIN HFA IH PRN (15:30)
[2022-11-18] MEDS ORDERED: ZOLOFT PO SCH ×2 (15:30→21:00)
[2022-11-18] MEDS: SOLU-MEDROL 125 MG IVP SCH ×2 (15:50→21:04)
[2022-11-18] MEDS: ROCEPHIN 1 GM/50 ML D5W 1 GM/50 ML BAG IV SCH (15:50)
[2022-11-18] MEDS: DIFLUCAN PO SCH (15:50)
[2022-11-18] MEDS: POTASSIUM CHL 10% ORAL SOL PO SCH (17:21)
[2022-11-18] MEDS: PRILOSEC PO SCH (17:21)
[2022-11-18] MEDS: ZITHROMAX 500 MG in SODIUM CHLORIDE 250 ML IV SCH (17:49)
[2022-11-18] MEDS: SYMBICORT 160-4.5 MCG INHALER IH SCH (20:24)
[2022-11-19 05:31] LABS: BASOPHILS % (AUTO) 0.1 % (0.0-3.0); EOSINOPHILS % (AUTO) 0.1 % (0.0-7.0); HEMATOCRIT 30.9 % (37.0-47.0); HEMOGLOBIN 9.3 g/dl (12.0-16.0); IMMATURE GRANULOCYTE # (AUTO) 0.1 (0.0-1.0); IMMATURE GRANULOCYTE % (AUTO) 0.6 % (0.0-5.0); LYMPHOCYTES # (AUTO) 0.6 K/uL (0.60-3.4); LYMPHOCYTES % (AUTO) 5.6 (10.0-50.0); MEAN CORPUSCULAR HEMOGLOBIN 25.5 pg (27.0-31.0); MEAN CORPUSCULAR HGB CONC 30.1 (31.8-35.4); MEAN CORPUSCULAR VOLUME 84.9 fl (81.0-99.0); MONOCYTES # (AUTO) 0.1 K/uL (0.4-2.0); MONOCYTES % (AUTO) 0.6 (0-10); NEUTROPHILS # (AUTO) 10.5 K/ul (2.0-6.9); PLATELET COUNT 211 10^3/uL (140-440); RDW COEFFICIENT OF VARIATION 15.8 % (11.6-14.8); RED BLOOD COUNT 3.64 10^6/ul (4.20-5.40); WHITE BLOOD COUNT 11.29 K/ul (4.6-10.2)
[2022-11-19 05:43] LABS: ALBUMIN 3.77 g/dL (3.5-5.0); ALKALINE PHOSPHATASE 74.8 U/L (53-141); ASPARTATE AMINO TRANSFERASE 20.6 U/L (14-36); BILIRUBIN,TOTAL 0.51 mg/dL (0.2-1.3); BLOOD UREA NITROGEN 16.4 mg/dL (7-17); CALCIUM 9.12 mg/dL (8.4-10.2); CARBON DIOXIDE 33.4 mmol/L (22-30.0); CHLORIDE 93.8 mmol/L (98-107); CREATININE 1.18 mg/dL (0.60-1.30); GLUCOSE 157.8 mg/dL (74-106); POTASSIUM 4.38 mmol/L (3.5-5.1); SODIUM 131.9 mmol/L (134.5-145); TOTAL PROTEIN 7.12 g/dL (6.3-8.2)
[2022-11-19] MEDS: PRILOSEC PO SCH (05:56)
[2022-11-19] MEDS ORDERED: LASIX TAB PO SCH (06:30)
[2022-11-19] MEDS ORDERED: SYNTHROID PO SCH (06:30)
[2022-11-19] MEDS: ROCEPHIN 1 GM/50 ML D5W 1 GM/50 ML BAG IV SCH (08:45)
[2022-11-19] MEDS: LOVENOX SUBCUT SCH ×2 (08:45→08:54)
[2022-11-19] MEDS: SOLU-MEDROL 125 MG IVP SCH (08:45)
[2022-11-19] MEDS: DIFLUCAN PO SCH (08:46)
[2022-11-19] MEDS: POTASSIUM CHL 10% ORAL SOL PO SCH (08:46)
[2022-11-19] MEDS: SYMBICORT 160-4.5 MCG INHALER IH SCH (08:47)
[2022-11-19] MEDS ORDERED: TOPROL XL PO SCH (09:00)
[2022-11-19] MEDS ORDERED: TYLENOL PO PRN (09:06)
[2022-11-19] MEDS: ZITHROMAX 500 MG in SODIUM CHLORIDE 250 ML IV SCH (10:00)
[2022-11-19 10:20] VITALS: BP 103/60; PULSE 82; RESP 15; TEMP 96.6
--- NOTE | 2022-11-19 10:28 | DCSUM ---
Admission Date Admission Date: 11/18/22 Discharge Date Discharge Date: 11/19/22 Admission Diagnosis Admission Diagnosis: 1. Acute infectious bronchiolitis, right 2. Pleurisy Discharge Diagnosis Discharge Diagnosis: 1. Acute infectious bronchiolitis, right 2. Pleurisy, right 3. Chronic respiratory failure 4. COPD 5. Hypertension 6. Gerd 7. Heart failure, unknown type Hospital Provider Hospital Provider: PRASANNA TSE PA-C, [facility] [place] Phys[place] Primary Care Physician: LUIS MIGUEL FONG MD Summary of History and Physical Summary of History and Physical: Patient is a 72-year-old female with past medical history of COPD on 3 to 4 L chronically, heart failure, hypothyroidism, hypertension, GERD, venous stasis, depression who presents for right-sided chest wall pain for the past 2 weeks and cough. She feels her breathing is at baseline and may be slightly worse. She feels the swelling in her legs is at baseline. She denies any left-sided chest pain. She describes it as right-sided, sharp and stabbing, and worse with deep breaths. She denies any nausea or vomiting. No fever. In the ER she was found to have infectious/inflammatory bronchiolitis versus aspiration, most pronounced in the right lower lobe. Labs overall unremarkable other than elevated d dimer. She was given doxycycline for pneumonia. Denies difficulty swallowing or recent choking while eating or drinking. Patient is overall deconditioned. She states she wears 3 to 4 L at all times. She states that she typically gets around in her wheelchair. She can transfer from wheelchair to bedside commode and then back. Otherwise she does not typically ambulate. Hospital Course Subjective: Patient was treated with Rocephin, azithromycin, Solu-Medrol for her pleurisy and bronchiolitis. Discussed with patient that it can also just be viral and therefore antibiotics may or may not work however with her COPD and predisposition for bacterial infection we will go ahead and treat with antibiotics including atypical coverage. Due to her pleurisy type pain will also recommend Tylenol and we will do some prednisone as well. She is concerned about steroids as she often gets thrush. We will prescribe her nystatin solution to swish and spit. Labs overall unremarkable. Patient on baseline home O2 oxygen requirement. No fever. Sodium mildly low. She will follow-up with her PCP next week encouraged her to call on Monday for appointment. Red flags and when to return discussed. Patient agreeable to plan of care. Appearance: Pleasant, No Apparent Distress, Alert and Other (Chronically ill appearing ) HEENT: MMM and Supple CVS: No Murmur, No Rubs and No Gallop Abdomen: Soft, Non-Tender, No Distention and Other (colostomy noted) Respiratory: No Accessory Muscle Use Extremities: No Edema (+chronic venous stasis cole ) Vital Signs: Most Recent Vital Signs Temperature 96.6 F L 11/19/22 10:00 Temperature Source Temporal Artery Scan 11/19/22 10:00 Temperature Source Oral 11/18/22 10:47 Pulse Rate 82 11/19/22 10:00 Respiratory Rate 15 11/19/22 10:00 Blood Pressure 103/60 11/19/22 10:00 Blood Pressure Mean 74 11/19/22 10:00 Blood Pressure Left Arm 128/73 11/18/22 15:04 Blood Pressure Location Right Radial Artery 11/19/22 10:00 Blood Pressure Position Sitting 11/19/22 10:00 O2 Sat by Pulse Oximetry 96 11/19/22 10:00 Oxygen Delivery Method Nasal Cannula 11/19/22 10:00 Oxygen Flow Rate 3 11/19/22 10:00 Height 5 ft 3 in 11/18/22 15:04 Weight 198 lb 6 oz 11/18/22 15:04 Telemetry Heart Rate 65 05/15/21 07:00 Telemetry SPO2 97 05/14/21 01:00 Imaging: EXAM: CHEST RADIOGRAPH TECHNIQUE: Two views of the chest. COMPARISON: 07/09/2021 HISTORY: Right chest pain FINDINGS: The heart and mediastinum are stable. A small left pleural effusion is suspected. Otherwise, the lungs and pleural spaces are unchanged. No acute abnormality of the bones or soft tissues is identified. IMPRESSION: Stable exam with a small left pleural effusion EXAM: CHEST CTA WITH CONTRAST (PULMONARY ARTERY) HISTORY: Elevated D-dimer. Chest pain. TECHNIQUE: CTA acquisition of the chest from the thoracic inlet to the upper abdomen following IV contrast administration timed to filling of the pulmonary artery. 3D/MIP/VR images were utilized. COMPARISON: CT pulmonary angiogram 05/14/2021. FINDINGS: Lines, Tubes, Devices: None. Pulmonary arteries: - Diagnostic quality: Adequate. - Central(Main/Lobar/Interlobar): No embolus. - Peripheral (Segmental/Subsegmental): No embolus. - Right ventricle/Left ventricle ratio (normal <0.9): Normal. - Main pulmonary artery: Normal caliber. Lung Parenchyma, Pleura, and Airways: Small amount of secretions and the a right main bronchus. Thickening of the peripheral airways and scattered mucus plugging. Tree in bud nodules in the right lower lobe. Rounded atelectasis and calcified granuloma in the right lower lobe. No pleural effusion. Thoracic Inlet, Mediastinum, and Mildred: Thyroid gland is unremarkable. Calcified granulomas in the mediastinal and hilar lymph nodes. Heart, Vessels, and Pericardium: Scattered atherosclerotic calcifications of the aorta. Coronary artery calcifications. No cariomegaly. No pericardial effusion. Bones and Soft Tissues: No acute osseous abnormality. No mass or adenopathy. Upper Abdomen: Partially imaged bowel containing hernia in the right upper quadrant. Calcified granulomas in the spleen. IMPRESSION: No pulmonary embolus. Infectious/inflammatory bronchiolitis versus aspiration, most pronounced in the right lower lobe. Rounded atelectasis and calcified granuloma in the right lower lobe. Lab Results Last 24 Hours: 11/19/22 11/18/22 11/18/22 05:00 14:33 11:10 WBC 11.29 H 9.30 RBC 3.64 L 3.95 L Hgb 9.3 L 10.1 L Hct 30.9 L 33.3 L MCV 84.9 84.3 MCH 25.5 L 25.6 L MCHC 30.1 L 30.3 L RDW Coeff of [place] 15.8 H 16.0 H Plt Count 211 198 Immature Gran % (Auto) 0.6 0.4 Neut % (Auto) 93.0 H 74.3 Lymph % (Auto) 5.6 L 15.3 [place] % (Auto) 0.6 4.0 Eos % (Auto) 0.1 5.7 Baso % (Auto) 0.1 0.3 Neut # (Auto) 10.5 H 6.9 Lymph # (Auto) 0.6 1.4 [place] # (Auto) 0.1 L 0.4 Eos # (Auto) 0.0 0.5 Baso # (Auto) 0.0 0.0 Immature Gran # (Auto) 0.1 0.0 Sodium 131.9 L 134.8 Potassium 4.38 3.62 Chloride 93.8 L 92.3 L Carbon Dioxide 33.4 H 35.8 H Anion Gap 9.08 10.32 BUN 16.4 15.3 Creatinine 1.18 1.33 H Estimated GFR (MDRD) 45.00 39.00 BUN/Creatinine Ratio 13.89 11.50 Glucose 157.8 H 120.3 H Lactic Acid 1.64 Calcium 9.12 9.16 Total Bilirubin 0.51 0.61 AST 20.6 24.0 ALT 15.0 13.1 Alkaline Phosphatase 74.8 93.7 Troponin I < 0.012 < 0.012 NT-Pro-B Natriuret Pep 69 Total Protein 7.12 7.69 Albumin 3.77 4.08 Globulin 3.35 3.61 Albumin/Globulin Ratio 1.12 1.13 Procalcitonin 0.16 H TSH 1.150 Free T4 1.38 D-Dimer 932.61 H Discharge Instructions Discharge Planning: Discharge Planning > [address] Latisha Kelley. Discharge Medications: Medications at Discharge (Home Meds & RX) metoprolol succinate 25 mg tablet,extended release 24 hr 25 mg PO QDAY #90 tabs 09/08/21 hydroxyzine HCl 50 mg tablet 50 mg PO QHS #90 tabs 10/08/21 levothyroxine 75 mcg tablet 75 mcg PO QDAY #90 tabs 10/08/21 furosemide 20 mg tablet 20 mg PO QAM #90 tabs 11/10/21 Symbicort 160 mcg-4.5 mcg/actuation HFA aerosol inhaler (budesonide-formoterol) See Rx Instructions .Route .COMPLEX #10.2 grams 05/03/22 albuterol sulfate 90 mcg/actuation aerosol inhaler (Ventolin HFA) See Rx Instructions .Route .COMPLEX #18 grams 10/26/22 omeprazole 20 mg capsule,delayed release 20 mg PO BID 11/18/22 potassium chloride 20 mEq/15 mL oral liquid 20 meq PO BID 11/18/22 sertraline 50 mg tablet 50 mg PO .hs 11/18/22 azithromycin 250 mg tablet (Zithromax Z-Gennaro) See Rx Instructions PO .COMPLEX #6 tabs 11/19/22 nystatin 100,000 unit/mL oral suspension 4 ml PO QID THRUSH 7 days #112 mL 11/19/22 prednisone 20 mg tablet 20 mg PO DAILY 5 days #5 tabs 11/19/22 Discharge Plan Discharge Discharge Orders: Discharge Patient (ONCE); Ordered 11/19/22 Ordered By: PRASANNA TSE Activity Restrictions/Additional Instructions: DISCHARGE TO HOME DX: BRONCHIOLITIS, PLEURISY ACTIVITY: TOELRATED DIET: HEART [facility] PHARMACY: [facility] MEDICATIONS: Resume home medications as prescribed NEW MEDICATIONS: Azithromycin 250mg (SEE PACKAGE INSTRUCTIONS) - 5 days worth Nystatin ORAL - to be taken at first sign of thrush Prednisone 20mg x 5 days F/U WITH PCP NEXT WEEK, CALL ON MONDAY FOR APT Instructions: Pleurisy (DC) Care Plan Goals: Problem: Impaired Respiratory Status Goal: Exhibit optimal respiratory function Instructions: Activities as tolerated Apply oxygen as ordered Elevate head of bed Notify MD of increased congestion Patient Disposition: HOME SELF-CARE Prescriptions: New prednisone 20 mg tablet 20 mg PO DAILY 5 Days Qty: 5 0RF azithromycin [Zithromax Z-Gennaro] 250 mg tablet See Rx Instructions .ROUTE .COMPLEX Qty: 6 0RF Rx Instructions: For 250 mg dose pack: take 500 mg today (day 1), then 250 mg for 4 days (days 2-5) nystatin 100,000 unit/mL suspension 4 ml PO QID 7 Days Qty: 112 0RF Rx Instructions: swish and swallow. START WITH FIRST SIGN OF THRUSH. Continued metoprolol succinate 25 mg tablet extended release 24 hr 25 mg PO QDAY Qty: 90 1RF hydroxyzine HCl 50 mg tablet 50 mg PO QHS Qty: 90 0RF levothyroxine 75 mcg tablet 75 mcg PO QDAY Qty: 90 0RF furosemide 20 mg tablet 20 mg PO QAM Qty: 90 0RF budesonide-formoterol [Symbicort] 160-4.5 mcg/actuation HFA aerosol inhaler See Rx Instructions .ROUTE .COMPLEX Qty: 10.2 0RF Dose Instruction: INHALE 2 PUFFS BY MOUTH TWICE DAILY Rx Instructions: INHALE 2 PUFFS BY MOUTH TWICE DAILY albuterol sulfate [Ventolin HFA] 90 mcg/actuation HFA aerosol inhaler See Rx Instructions .ROUTE .COMPLEX Qty: 18 0RF Dose Instruction: INHALE 2 PUFFS EVERY FOUR TO SIX HOURS NEEDED FOR SHORTNESS OF BREATH OR WHEEZING Rx Instructions: INHALE 2 PUFFS EVERY FOUR TO SIX HOURS NEEDED FOR SHORTNESS OF BREATH OR WHEEZING omeprazole 20 mg capsule,delayed release(DR/EC) 20 mg PO BID Patient Comments: TAKE 1 CAPSULE BY MOUTH TWICE DAILY sertraline 50 mg tablet 50 mg PO .hs Patient Comments: TAKE 1 AND 1/2 TABLETS BY MOUTH EVERY DAY AT BEDTIME potassium chloride 20 mEq/15 mL liquid 20 meq PO BID Patient Comments: TAKE 15 ML BY MOUTH EVERY DAY WITH MEALS Did you review [place] ASSISTANT TRACK AND FIELD COACH for ALL controlled substances?: Not Applicable Discussed opioids are addictive and Narcan is available by prescription or from pharmacy.: No Condition: Stable
== END 2022-11-19 14:00 | disposition home or self-care (01) ==
LOC: MEDSURG B 10:41 → ED 10:41 → MEDSURG B 14:54
PROVIDERS: ADMIT Hospitalist; ATTEND Physician Assistant
DX: R79.1 Abnormal coagulation profile; I87.2 Venous insufficiency (chronic) (peripheral); B37.2 Candidiasis of skin and nail; Z79.899 Other long term (current) drug therapy; Z93.3 Colostomy status; Z99.81 Dependence on supplemental oxygen; Z74.3 Need for continuous supervision; D64.9 Anemia, unspecified; F17.210 Nicotine dependence, cigarettes, uncomplicated; R07.9 Chest pain, unspecified; R09.1 Pleurisy; K21.9 Gastro-esophageal reflux disease without esophagitis; J18.9 Pneumonia, unspecified organism; I10 Essential (primary) hypertension; J21.9 Acute bronchiolitis, unspecified; R07.82 Intercostal pain; E03.9 Hypothyroidism, unspecified; Z51.81 Encounter for therapeutic drug level monitoring; F32.A Depression, unspecified; I50.9 Heart failure, unspecified; M62.81 Muscle weakness (generalized)

== ENCOUNTER 2023-01-30 17:29 | Observation (INO) ==
[2023-01-30] MEDS ORDERED: SOLU-MEDROL 125 MG IM ONE (17:53)
[2023-01-30] MEDS ORDERED: ALBUTEROL 0.083% NEB NEB ONE (17:53)
--- NOTE | 2023-01-30 17:53 | ED.PDOC ---
General ED Provider: Dr. EDITH LR MD Chief Complaint: Shortness of Air Stated Complaint: Shortness of breath Time Seen by Provider: 01/30/23 17:51 Mode of Arrival: Ambulance Primary Care Provider: LUIS MIGUEL FONG MD Nursing and Triage Documentation Reviewed and Agree: Yes Respiratory Complaint Exam Shortness of Air Complaint/Exam Symptoms Are: Still present Timing: Constant Initial Severity: Mild Current Severity: Mild Character: Reports Dyspnea on exertion Review of Systems Review Of Systems Constitutional: Reports Weakness Respiratory: Reports Shortness of Breath and Wheezing All Other Systems: Reviewed and Negative [facility] Medical History Bilateral lower leg cellulitis L03.116 - Cellulitis of left lower limb (ICD-10) BPV (benign positional vertigo) H81.13 - Benign paroxysmal vertigo, bilateral (ICD-10) Chronic obstructive pulmonary disease J44.9 - Chronic obstructive pulmonary disease, unspecified (ICD-10) Chronic respiratory failure with hypoxia, on home oxygen therapy J96.11 - Chronic respiratory failure with hypoxia (ICD-10) Z99.81 - Dependence on supplemental oxygen (ICD-10) Chronic venous stasis dermatitis of both lower extremities I87.2 - Venous insufficiency (chronic) (peripheral) (ICD-10) Colostomy present on admission (~05/16/19) Z93.3 - Colostomy status (ICD-10) COVID-19 U07.1 - COVID-19 (ICD-10) Decreased mobility and endurance Z74.09 - Other reduced mobility (ICD-10) Diverticular disease K57.90 - Diverticulosis of intestine, part unspecified, without perforation or abscess without bleeding (ICD-10) Edema of both lower extremities due to peripheral venous insufficiency I87.2 - Venous insufficiency (chronic) (peripheral) (ICD-10) Elevated white blood cell count, unspecified D72.829 - Elevated white blood cell count, unspecified (ICD-10) Generalized anxiety disorder F41.1 - Generalized anxiety disorder (ICD-10) History of epistaxis Z87.898 - Personal history of other specified conditions (ICD-10) Hypothyroidism E03.9 - Hypothyroidism, unspecified (ICD-10) Major depressive disorder, recurrent, unspecified F33.9 - Major depressive disorder, recurrent, unspecified (ICD-10) Morbid obesity with BMI of 40.0-44.9, adult E66.01 - Morbid (severe) obesity due to excess calories (ICD-10) Z68.41 - Body mass index [BMI] 40.0-44.9, adult (ICD-10) On home oxygen therapy Z99.81 - Dependence on supplemental oxygen (ICD-10) Stasis dermatitis of both legs I87.2 - Venous insufficiency (chronic) (peripheral) (ICD-10) Tobacco abuse disorder Z72.0 - Tobacco use (ICD-10) Tobacco use Z72.0 - Tobacco use (ICD-10) Venous insufficiency (chronic) (peripheral) I87.2 - Venous insufficiency (chronic) (peripheral) (ICD-10) Vitamin D deficiency E55.9 - Vitamin D deficiency, unspecified (ICD-10) Social History Smoking and tobacco status: Current every day smoker Tobacco type: cigarettes Smoking cigarettes per day: 2 Years smoked: 52 Tobacco: How many years used: 50 Quit status: has quit before Second hand smoke exposure: Yes Smoking risk assessment performed: No Alcohol intake: never Details: I have had 1 cigarette in 3 days. Substance use type: does not use Yanira/congregational: [employer] Special yanira needs: No Agree to transfusion: Yes Adopted: Yes Caregiver/support person: Yes Household members: children Housing: house Marital status: W / Lives independently: No (lives with family) Number of children: 4 Number of grandchildren: 11 Highest education level completed: some college, no degree Financial difficulty paying for basics: not applicable service: No Current occupational status: retired Current occupational exposures/hazards: No Pets and animals: Yes Leisure activites: other History of recent travel: No Sexually active: No Do you think of yourself as: straight/heterosexual Current gender identity: female Seatbelt use: never Helmet use: No (N/A) Drives intoxicated or rides with intoxicated pickup driver: No Current diet type/program: regular Caffeine: Yes Water heater temperature set < 120 degrees: Yes Working smoke detector in home: Yes Fire extinguisher in home: Yes Carbon monoxide detector in home: Yes Firearms in home: No Surgical History History of section (Unknown) Z98.891 - Other specified postprocedural states (ICD-10) History of intestinal surgery Z98.890 - Other specified postprocedural states (ICD-10) History of tubal ligation Z98.51 - Tubal ligation status (ICD-10) Female Reproductive History Menstrual Hx Hysterectomy: No Hx Tubal Ligation: Yes Physical Exam Physical Exam Appearance: Reports Well-appearing Ill-appearing: None Pain Distress: None Eyes: Reports JM and EOMI ENT: Reports Ears normal and Nose normal Neck: Supple Respiratory: Reports Breath sounds diminished and Wheezes Cardiovascular: Reports Pulses normal, No rub, No murmur and Irregular rhythm GI/: Reports Soft, Nontender and No masses Musculoskeletal: Reports Normal strength and ROM intact Skin: Reports Warm and Normal color Neurological: Reports Sensation intact and Motor intact Psychiatric: Reports Affect appropriate Interpretation EKG Interpretation EKG Interpretation By: ED Physician Time of EKG #1: 18:12 Rate: Normal Rhythm: Sinus Ectopy: None [place]: NL ST Segment: Normal 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, 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 ST changes Critical Care Note Critical Care Note Total Critical Care Time (mins): 0 Course Course 01/30/23 18:00 01/30/23 18:00 Orders, Labs, Meds: Lab Review 01/30/23 01/30/23 18:00 19:25 WBC 10.60 H RBC 3.71 L Hgb 9.1 L Hct 31.3 L MCV 84.4 MCH 24.5 L MCHC 29.1 L RDW Coeff of [place] 17.4 H Plt Count 215 Immature Gran % (Auto) 0.4 Neut % (Auto) 78.5 H Lymph % (Auto) 12.9 [place] % (Auto) 4.8 Eos % (Auto) 3.2 Baso % (Auto) 0.2 Neut # (Auto) 8.3 H Lymph # (Auto) 1.4 [place] # (Auto) 0.5 Eos # (Auto) 0.3 Baso # (Auto) 0.0 Immature Gran # (Auto) 0.0 Sodium 134.5 Potassium 4.05 Chloride 92.6 L Carbon Dioxide 35.0 H Anion Gap 10.95 BUN 15.4 Creatinine 1.29 Estimated GFR (MDRD) 41.00 BUN/Creatinine Ratio 11.93 Glucose 109.3 H Calcium 8.95 Total Bilirubin 0.74 AST 18.6 ALT 11.0 Alkaline Phosphatase 104.2 Troponin I < 0.012 NT-Pro-B Natriuret Pep 116 Total Protein 7.41 Albumin 3.80 Globulin 3.61 Albumin/Globulin Ratio 1.05 SARS CoV-2 RNA Rapid JAYDON Negative Orders Category Date Time Status ADMIT OBSERVATION [PLACE PATIENT OBSERVATION] .TO ADMISSION 01/30/23 20:01 Active MEDSURG (MONITORED BED) EKG-(ED ONLY) Stat CARDIO 01/30/23 17:54 Completed NEBULIZER TREATMENT Routine CARDIO 01/30/23 17:53 Completed NEBULIZER TREATMENT Stat CARDIO 01/30/23 17:53 Completed TELEMETRY MONITORING TELE CARE 01/30/23 20:01 Active Monitor [ED MAINTENANCE DEPARTMENT TECHNICIAN APPLIED] .ONCE EMERGENCY 01/30/23 17:54 Active CBC W/ AUTO DIFF Stat LAB 01/30/23 18:00 Completed CMP [COMPREHENSIVE METABOLIC PANEL] Stat LAB 01/30/23 18:00 Completed PROBNP ED [NT-PROBNP(ED)] Stat LAB 01/30/23 18:00 Completed SARS COV-2 RNA RAPID JAYDON Stat LAB 01/30/23 19:25 Completed TROPONIN I Stat LAB 01/30/23 18:00 Completed Albuterol Sulfate 0.083% Neb [Albuterol 0.083% Neb] Meds 01/30/23 17:53 Discontinued 2.5 mg NEB ONCE ONE Levofloxacin/D5w [Levaquin 500 mg/100 ml D5w] Meds 01/30/23 19:10 Active 500 mg in 100 ml IV ONCE Methylprednisolone Sod Succ/Pf [Solu-Medrol 125 mg] Meds 01/30/23 17:53 Discontinued 125 mg IM ONCE ONE CXR [CHEST, 1V AP ONLY] Stat RADS 01/30/23 17:53 Completed Medications Discontinued Medications Generic Name Dose Route Start Last Admin Trade Name Freq PRN Reason Stop Dose Admin Albuterol Sulfate 2.5 mg 01/30/23 17:53 01/30/23 18:28 Albuterol Sulfate 0.083% Vial.Neb NEB 01/30/23 17:54 2.5 mg ONCE ONE Administration Levofloxacin/Dextrose 500 mg in 100 mls @ 100 mls/hr 01/30/23 19:10 01/30/23 19:19 Levaquin 500 Mg/100 Ml D5w IV 01/30/23 20:09 100 mls/hr ONCE ONE Administration Methylprednisolone Sodium Succinate 125 mg 01/30/23 17:53 01/30/23 18:35 Methylprednisolone Sod Succ/Pf 125 Mg/2 Ml Vial IM 01/30/23 17:54 125 mg ONCE ONE Administration Vital Signs: Temp Pulse Resp BP Pulse Ox 01/30/23 18:12 97.5 F L 81 23 H 141/69 H 100 72 years old female past medical history of COPD who came to the ER from home for shortness of breath. Patient is on home oxygen 3 L and has been feeling short of breath her home inhalers are not helping. Patient was given albuterol nebulizer treatment Solu-Medrol 125 mg IV once placed on oxygen WBC 10.6, hgb 9.1 which is her baseline.chest x-ray showing small left pleural effusion with poss infiltrate. Patient still wheezing after respiratory treatmen and solumedrol, she also received levaquin 500 mg. discussed case with hospitalist Alex and she accepted the patient to be admitted under her services. Discharge Plan Discharge Patient Disposition: ADMITTED INPATIENT Discharge Problem: Acute exacerbation of chronic obstructive pulmonary disease Instructions: COPD (Chronic Obstructive Pulmonary Disease) (ED) Prescriptions: No Action metoprolol succinate 25 mg tablet extended release 24 hr 25 mg PO QDAY Qty: 90 1RF hydroxyzine HCl 50 mg tablet 50 mg PO QHS Qty: 90 0RF levothyroxine 75 mcg tablet 75 mcg PO QDAY Qty: 90 0RF furosemide 20 mg tablet 20 mg PO QAM Qty: 90 0RF budesonide-formoterol [Symbicort] 160-4.5 mcg/actuation HFA aerosol inhaler See Rx Instructions .ROUTE .COMPLEX Qty: 10.2 0RF Dose Instruction: INHALE 2 PUFFS BY MOUTH TWICE DAILY Rx Instructions: INHALE 2 PUFFS BY MOUTH TWICE DAILY albuterol sulfate [Ventolin HFA] 90 mcg/actuation HFA aerosol inhaler See Rx Instructions .ROUTE .COMPLEX Qty: 18 0RF Dose Instruction: INHALE 2 PUFFS EVERY FOUR TO SIX HOURS NEEDED FOR SHORTNESS OF BREATH OR WHEEZING Rx Instructions: INHALE 2 PUFFS EVERY FOUR TO SIX HOURS NEEDED FOR SHORTNESS OF BREATH OR WHEEZING omeprazole 20 mg capsule,delayed release(DR/EC) 20 mg PO BID Patient Comments: TAKE 1 CAPSULE BY MOUTH TWICE DAILY sertraline 50 mg tablet 50 mg PO .hs Patient Comments: TAKE 1 AND 1/2 TABLETS BY MOUTH EVERY DAY AT BEDTIME potassium chloride 20 mEq/15 mL liquid 20 meq PO BID Patient Comments: TAKE 15 ML BY MOUTH EVERY DAY WITH MEALS azithromycin [Zithromax Z-Gennaro] 250 mg tablet See Rx Instructions .ROUTE .COMPLEX Qty: 6 0RF Rx Instructions: For 250 mg dose pack: take 500 mg today (day 1), then 250 mg for 4 days (days 2-5) Did you review [place] TEXTILE MACHINE OPERATOR for ALL controlled substances?: Not Applicable Activity Restrictions/Additional Instructions: take medication as perscribed follow up with PCP within 3 days of discharge ED Provider: EDITH LR Condition: Poor Physician Progress Note: []
[2023-01-30 18:06] LABS: BASOPHILS % (AUTO) 0.2 % (0.0-3.0); EOSINOPHILS # (AUTO) 0.3 K/ul (0.0-0.7); EOSINOPHILS % (AUTO) 3.2 % (0.0-7.0); HEMATOCRIT 31.3 % (37.0-47.0); HEMOGLOBIN 9.1 g/dl (12.0-16.0); IMMATURE GRANULOCYTE % (AUTO) 0.4 % (0.0-5.0); LYMPHOCYTES # (AUTO) 1.4 K/uL (0.60-3.4); LYMPHOCYTES % (AUTO) 12.9 (10.0-50.0); MEAN CORPUSCULAR HEMOGLOBIN 24.5 pg (27.0-31.0); MEAN CORPUSCULAR HGB CONC 29.1 (31.8-35.4); MEAN CORPUSCULAR VOLUME 84.4 fl (81.0-99.0); MONOCYTES # (AUTO) 0.5 K/uL (0.4-2.0); MONOCYTES % (AUTO) 4.8 (0-10); NEUTROPHILS # (AUTO) 8.3 K/ul (2.0-6.9); NEUTROPHILS % (AUTO) 78.5 % (42.2-75.2); PLATELET COUNT 215 10^3/uL (140-440); RDW COEFFICIENT OF VARIATION 17.4 % (11.6-14.8); RED BLOOD COUNT 3.71 10^6/ul (4.20-5.40)
[2023-01-30 18:18] LABS: ALKALINE PHOSPHATASE 104.2 U/L (53-141); ASPARTATE AMINO TRANSFERASE 18.6 U/L (14-36); BILIRUBIN,TOTAL 0.74 mg/dL (0.2-1.3); BLOOD UREA NITROGEN 15.4 mg/dL (7-17); CALCIUM 8.95 mg/dL (8.4-10.2); CHLORIDE 92.6 mmol/L (98-107); CREATININE 1.29 mg/dL (0.60-1.30); GLUCOSE 109.3 mg/dL (74-106); POTASSIUM 4.05 mmol/L (3.5-5.1); SODIUM 134.5 mmol/L (134.5-145); TOTAL PROTEIN 7.41 g/dL (6.3-8.2)
[2023-01-30 18:30] LABS: TROPONIN I < 0.012 ng/ml (0.0000-0.120)
--- NOTE | 2023-01-30 19:02 | DI ---
EXAM: CHEST ONE-VIEW HISTORY: Shortness of breath COMPARISON: Chest radiographs from 11/18/2022 FINDINGS: The previous also is stable. A small left pleural effusion is detected with subjacent opa city. The pulmonary vasculature is normal. No pneumothoraces. IMPRESSION: 1. Small left pleural effusion with subjacent atelectasis and/or infiltrate. .
[2023-01-30] MEDS ORDERED: LEVAQUIN 500 MG/100 ML D5W 500 MG/100 ML BAG IV ONE (19:10)
[2023-01-30 19:46] LABS: SARS COV-2 RNA RAPID NAAT NEGATIVE (NEGATIVE)
[2023-01-30] MEDS ORDERED: ALBUTEROL 0.083% NEB NEB PRN (20:57)
[2023-01-30] MEDS ORDERED: TYLENOL PO PRN (20:57)
[2023-01-30] MEDS: DUONEB NEB SCH (22:16)
[2023-01-30 22:44] VITALS: BMI 33.5
[2023-01-31] MEDS: ATARAX PO SCH ×2 (00:19→20:26)
[2023-01-31] MEDS: DUONEB NEB SCH ×7 (01:27→21:15)
[2023-01-31] MEDS: SOLU-MEDROL 40 MG IVP SCH ×5 (04:56→21:59)
[2023-01-31 05:22] LABS: BASOPHILS % (AUTO) 0.1 % (0.0-3.0); EOSINOPHILS % (AUTO) 0.2 % (0.0-7.0); HEMATOCRIT 29.1 % (37.0-47.0); HEMOGLOBIN 8.4 g/dl (12.0-16.0); IMMATURE GRANULOCYTE # (AUTO) 0.1 (0.0-1.0); IMMATURE GRANULOCYTE % (AUTO) 0.6 % (0.0-5.0); LYMPHOCYTES # (AUTO) 0.4 K/uL (0.60-3.4); LYMPHOCYTES % (AUTO) 4.4 (10.0-50.0); MEAN CORPUSCULAR HEMOGLOBIN 24.2 pg (27.0-31.0); MEAN CORPUSCULAR HGB CONC 28.9 (31.8-35.4); MEAN CORPUSCULAR VOLUME 83.9 fl (81.0-99.0); MONOCYTES % (AUTO) 0.4 (0-10); NEUTROPHILS # (AUTO) 7.9 K/ul (2.0-6.9); NEUTROPHILS % (AUTO) 94.3 % (42.2-75.2); PLATELET COUNT 227 10^3/uL (140-440); RDW COEFFICIENT OF VARIATION 17.1 % (11.6-14.8); RED BLOOD COUNT 3.47 10^6/ul (4.20-5.40); WHITE BLOOD COUNT 8.38 K/ul (4.6-10.2)
[2023-01-31] MEDS ORDERED: LASIX TAB PO SCH (06:00)
[2023-01-31] MEDS ORDERED: PRILOSEC PO SCH (06:00)
[2023-01-31 06:05] LABS: ALANINE AMINOTRANSFERASE 13.4 U/L (0-35); ALBUMIN 3.58 g/dL (3.5-5.0); ALKALINE PHOSPHATASE 85.6 U/L (53-141); ASPARTATE AMINO TRANSFERASE 19.5 U/L (14-36); BILIRUBIN,TOTAL 0.71 mg/dL (0.2-1.3); BLOOD UREA NITROGEN 16.3 mg/dL (7-17); CALCIUM 8.74 mg/dL (8.4-10.2); CARBON DIOXIDE 30.7 mmol/L (22-30.0); CHLORIDE 93.7 mmol/L (98-107); CREATININE 1.07 mg/dL (0.60-1.30); GLUCOSE 213.5 mg/dL (74-106); POTASSIUM 3.89 mmol/L (3.5-5.1); SODIUM 131.4 mmol/L (134.5-145); TOTAL PROTEIN 6.98 g/dL (6.3-8.2)
[2023-01-31] MEDS: POTASSIUM CHL 10% ORAL SOL PO SCH ×2 (08:23→16:55)
[2023-01-31] MEDS: SYNTHROID PO SCH (08:24)
[2023-01-31] MEDS: TOPROL XL PO SCH (08:24)
[2023-01-31] MEDS ORDERED: SYMBICORT 160-4.5 MCG INHALER IH SCH (09:00)
[2023-01-31 09:06] LABS: IRON 36.8 ug/dL (37-170)
[2023-01-31] MEDS: LEVAQUIN 750 MG/150 ML D5W 750 MG/150 ML BAG IV SCH (09:43)
[2023-01-31] MEDS: FERROUS SULFATE PO SCH ×2 (10:41→20:26)
--- NOTE | 2023-01-31 10:41 | PCM ---
Date of Service Date Seen by Provider: 01/31/23 Time Seen by Provider: 08:40 Admit Day/Time Admission Date: 01/30/23 Reason for Admission Chief Complaint: ACUTE ON CHRONIC RESP FAILURE/COPD EXACERBATION Hospital Provider Hospital Provider: ALESSANDRA VELA, [facility] [place] Primary Care Physician Primary Care Physician: LUIS MIGUEL FONG MD History of Present Illness History of Present Illness: This 72 year old female presented to the ER with shortness of breath that started earlier in the day. She states she used her inhalers prior to calling EMS without relief of symptoms. She has a history of COPD and wears 3L O2 c ontinuously. Her chest X-Ray showed small left pleural effusion. She received Levaquin IV, Albuterol nebulizer treatment, and Methylprednisolone 125 mg in the ER. She states that she is feeling a little better today but still not breathing well. Denies any fever, chills, chest pain, productive cough, or other symptoms. Case Discussed With Case Discussed With: Patient's case was discussed with the ER Physicians, Dr. Whelan. [facility] Medical History Bilateral lower leg cellulitis L03.116 - Cellulitis of left lower limb (ICD-10) BPV (benign positional vertigo) H81.13 - Benign paroxysmal vertigo, bilateral (ICD-10) Chronic obstructive pulmonary disease J44.9 - Chronic obstructive pulmonary disease, unspecified (ICD-10) Chronic respiratory failure with hypoxia, on home oxygen therapy J96.11 - Chronic respiratory failure with hypoxia (ICD-10) Z99.81 - Dependence on supplemental oxygen (ICD-10) Chronic venous stasis dermatitis of both lower extremities I87.2 - Venous insufficiency (chronic) (peripheral) (ICD-10) Colostomy present on admission (~05/16/19) Z93.3 - Colostomy status (ICD-10) COVID-19 U07.1 - COVID-19 (ICD-10) Decreased mobility and endurance Z74.09 - Other reduced mobility (ICD-10) Diverticular disease K57.90 - Diverticulosis of intestine, part unspecified, without perforation or abscess without bleeding (ICD-10) Edema of both lower extremities due to peripheral venous insufficiency I87.2 - Venous insufficiency (chronic) (peripheral) (ICD-10) Elevated white blood cell count, unspecified D72.829 - Elevated white blood cell count, unspecified (ICD-10) Generalized anxiety disorder F41.1 - Generalized anxiety disorder (ICD-10) GERD (gastroesophageal reflux disease) K21.9 - Gastro-esophageal reflux disease without esophagitis (ICD-10) History of epistaxis Z87.898 - Personal history of other specified conditions (ICD-10) Hypothyroidism E03.9 - Hypothyroidism, unspecified (ICD-10) Major depressive disorder, recurrent, unspecified F33.9 - Major depressive disorder, recurrent, unspecified (ICD-10) Morbid obesity with BMI of 40.0-44.9, adult E66.01 - Morbid (severe) obesity due to excess calories (ICD-10) Z68.41 - Body mass index [BMI] 40.0-44.9, adult (ICD-10) On home oxygen therapy Z99.81 - Dependence on supplemental oxygen (ICD-10) Stasis dermatitis of both legs I87.2 - Venous insufficiency (chronic) (peripheral) (ICD-10) Tobacco abuse disorder Z72.0 - Tobacco use (ICD-10) Tobacco use Z72.0 - Tobacco use (ICD-10) Venous insufficiency (chronic) (peripheral) I87.2 - Venous insufficiency (chronic) (peripheral) (ICD-10) Vitamin D deficiency E55.9 - Vitamin D deficiency, unspecified (ICD-10) Surgical History History of section (Unknown) Z98.891 - Other specified postprocedural states (ICD-10) History of intestinal surgery Z98.890 - Other specified postprocedural states (ICD-10) History of tubal ligation Z98.51 - Tubal ligation status (ICD-10) Social History Smoking and tobacco status: Former smoker Tobacco: How many years used: 50 (QUIT MONTH AGO) How long ago did patient quit smoking: MONTH OR SO Quit status: has quit before Second hand smoke exposure: Yes Smoking risk assessment performed: No Alcohol intake: never Details: I have had 1 cigarette in 3 days. Substance use type: does not use Yanira/buddhist: EVANGELICAL Special yanira needs: No Agree to transfusion: Yes Adopted: Yes Caregiver/support person: Yes Household members: children Housing: house Marital status: W / Lives independently: No (lives with family) Number of children: 4 Number of grandchildren: 11 Highest education level completed: some college, no degree Financial difficulty paying for basics: not applicable service: No Current occupational status: retired Current occupational exposures/hazards: No Pets and animals: Yes Leisure activites: other History of recent travel: No Sexually active: No Do you think of yourself as: straight/heterosexual Current gender identity: female Seatbelt use: never Helmet use: No (N/A) Drives intoxicated or rides with intoxicated buggy driver: No Current diet type/program: regular Caffeine: Yes Water heater temperature set < 120 degrees: Yes Working smoke detector in home: Yes Fire extinguisher in home: Yes Carbon monoxide detector in home: Yes Firearms in home: No Allergies Allergies Allergy/AdvReac Type Severity Reaction Status Date / Time No Known Allergies Allergy Unknown Uncoded 01/30/23 18:19 Current Medications Home Medications metoprolol succinate 25 mg tablet,extended release 24 hr 25 mg PO QDAY #90 tabs 09/08/21 [Rx Confirmed 01/30/23 Last Taken 01/29/23] hydroxyzine HCl 50 mg tablet 50 mg PO QHS #90 tabs 10/08/21 [Rx Confirmed 01/30/23 Last Taken 01/29/23] levothyroxine 75 mcg tablet 75 mcg PO QDAY #90 tabs 10/08/21 [Rx Confirmed 01/30/23 Last Taken 01/29/23] furosemide 20 mg tablet 20 mg PO QAM #90 tabs 11/10/21 [Rx Confirmed 01/30/23 Last Taken 01/29/23] albuterol sulfate 90 mcg/actuation aerosol inhaler (Ventolin HFA) See Rx Instructions .Route .COMPLEX #18 grams 10/26/22 [Rx Confirmed 01/30/23 Last Taken 01/30/23] omeprazole 20 mg capsule,delayed release 20 mg PO BID 11/18/22 [History Confirmed 01/30/23 Last Taken 01/30/23] potassium chloride 20 mEq/15 mL oral liquid 20 meq PO BID 11/18/22 [History Confirmed 01/30/23 Last Taken 01/29/23] sertraline 50 mg tablet 50 mg PO .hs 11/18/22 [History Confirmed 01/30/23 Last Taken 01/29/23] fluticasone furoate 100 mcg-vilanterol 25 mcg/dose inhalation powder (Breo Ellipta) 1 inh inhalation DAILY 01/30/23 [History Confirmed 01/30/23 Last Taken 01/30/23] Home Acetaminophen (Acetaminophen 325 Mg Tablet) 650 mg PO Q4H PRN PRN Reason: Mild Pain Albuterol Sulfate (Albuterol Sulfate 0.083% Vial.Neb) 2.5 mg NEB RTQID PRN PRN Reason: Wheezing Albuterol/Ipratropium (Ipratropium/Albuterol Vial.Neb) 3 ml NEB RTQ4H [facility] Last Admin: 01/31/23 09:55 Dose: 3 ml Ferrous Sulfate (Ferrous Sulfate 324 Mg Tablet.) 324 mg PO BID [facility] Last Admin: 01/31/23 10:41 Dose: 324 mg Furosemide (Furosemide 20 Mg Tablet) 20 mg PO QDAC2 [facility] Hydroxyzine HCl (Hydroxyzine Hcl 25 Mg Tablet) 50 mg PO BEDTIME [facility] Last Admin: 01/31/23 00:19 Dose: 50 mg Levofloxacin/Dextrose (Levaquin 750 Mg/150 Ml D5w) 750 mg in 150 mls @ 100 mls/hr IV DAILY [facility] Stop: 02/03/23 08:59 Last Admin: 01/31/23 09:43 Dose: 100 mls/hr Levothyroxine Sodium (Levothyroxine Sodium 75 Mcg Tablet) 75 mcg PO QDAC2 [facility] Last Admin: 01/31/23 08:24 Dose: 75 mcg Methylprednisolone Sodium Succinate (Methylprednisolone Sod Succ/Pf 40 Mg/Ml Vial) 40 mg IVP Q8H [facility] Last Admin: 01/31/23 04:56 Dose: 40 mg Metoprolol Succinate (Metoprolol Succinate 25 Mg Tab.Er.24h) 25 mg PO DAILY [facility] Last Admin: 01/31/23 08:24 Dose: 25 mg Omeprazole (Omeprazole 20 Mg Capsule.) 20 mg PO BIDAC2 [facility] Potassium Chloride (Potassium Chloride 40 Meq/30 Ml Cup) 20 meq PO BIDWM2 [facility] Last Admin: 01/31/23 08:23 Dose: 20 meq Sertraline HCl (Sertraline Hcl 50 Mg Tablet) 50 mg PO BEDTIME [facility] Sodium Chloride (0.9% Sodium Chloride 10 Ml Disp.Syrin) 1 syr IVF Q8HR [facility] Last Admin: 01/31/23 04:55 Dose: 1 syr Discontinued Medications Albuterol Sulfate (Albuterol Sulfate 0.083% Vial.Neb) 2.5 mg NEB ONCE ONE Stop: 01/30/23 17:54 Last Admin: 01/30/23 18:28 Dose: 2.5 mg Albuterol/Ipratropium (Ipratropium/Albuterol Vial.Neb) 3 ml NEB Q4H [facility] Last Admin: 01/31/23 05:52 Dose: Not Given Budesonide/Formoterol Fumarate (Budesonide/Formoterol Fumarate 160/4.5 Mcg Inhaler) 2 puff IH BID [facility] Furosemide (Furosemide 20 Mg Tablet) 20 mg PO QAM [facility] Last Admin: 01/31/23 05:01 Dose: 20 mg Levofloxacin/Dextrose (Levaquin 500 Mg/100 Ml D5w) 500 mg in 100 mls @ 100 mls/hr IV ONCE ONE Stop: 01/30/23 20:09 Last Admin: 01/30/23 19:19 Dose: 100 mls/hr Methylprednisolone Sodium Succinate (Methylprednisolone Sod Succ/Pf 125 Mg/2 Ml Vial) 125 mg IM ONCE ONE Stop: 01/30/23 17:54 Last Admin: 01/30/23 18:35 Dose: 125 mg Methylprednisolone Sodium Succinate (Methylprednisolone Sod Succ/Pf 40 Mg/Ml Vial) 40 mg IVP Q8H [facility] Last Admin: 01/31/23 05:51 Dose: Not Given Omeprazole (Omeprazole 20 Mg Capsule.) 20 mg PO BID [facility] Last Admin: 01/31/23 05:01 Dose: 20 mg Review of Systems Constitutional: Reports No symptoms Head: Reports Normocephalic Eyes: Reports No symptoms Ears: Reports No symptoms Nose: Reports No symptoms Mouth: Reports No symptoms Throat: Reports No symptoms Cardiovascular: Reports No symptoms Respiratory: Reports Shortness of air Gastrointestinal: Reports No symptoms Genitourinary: Reports No Symptoms Musculoskeletal: Reports No symptoms Endocrine: Reports No symptoms Hematology: Reports No symptoms Immunology: Reports No symptoms Neurological: Reports No symptoms Psychiatric: Reports No symptoms Physical examination Most Recent Vital Signs: Most Recent Vital Signs Temperature 98.9 F 01/31/23 05:45 Temperature Source Temporal Artery Scan 01/31/23 05:45 Temperature Source Oral 01/30/23 18:12 Pulse Rate 95 01/31/23 05:45 Respiratory Rate 18 01/31/23 05:45 Blood Pressure 130/77 01/31/23 05:45 Blood Pressure Mean 94 01/31/23 05:45 Blood Pressure Left Arm 156/88 01/30/23 22:19 Blood Pressure Location Right Arm 01/31/23 05:45 Blood Pressure Position Supine 01/31/23 02:00 O2 Sat by Pulse Oximetry 95 01/31/23 10:10 Oxygen Delivery Method Nasal Cannula 01/31/23 10:10 Oxygen Flow Rate 3 01/31/23 10:10 Height 5 ft 3 in 01/31/23 09:11 Weight 190 lb 01/31/23 09:11 Telemetry Type Remote Telemetry 01/31/23 07:00 Telemetry Monitoring Continues 01/31/23 07:00 Telemetry Heart Rate 83 01/31/23 07:00 Telemetry SPO2 99 01/31/23 07:00 EKG SC Interval 0.2 01/31/23 07:00 EKG QRS Interval 0.04 L 01/31/23 07:00 Telemetry Strip Reading SR 01/31/23 07:00 Appearance: Positive Well-appearing, Well-nourished, No Apparent Distress and Alert and Oriented x3 HEENT: Positive Normocephalic Neck: Positive Supple Chest/Lungs: Positive Symmetrical With Equal Breath Sounds, Good Air Movement all 4 Lung Patel and Other (Coarse in bases) Heart: Positive RRR and Pulses Normal GI/: Positive Soft, Nontender, Bowel Sounds Normal, No Distention and No Organomegaly Musculoskeletal: Positive Not Examined Extremities: Positive Intact Peripheral Pulses, Stable Joints Without Laxity and Other (Chronic venous stasis bilaterally) Neurological: Positive Motor intact, Reflexes Intact, Alert and Oriented Psychiatric: Positive Oriented x4, Appropriate Mood, Appropriate Affect, Intact Memory and Normal Judgement Labs This Visit Labs This Visit: Labs This Visit 01/30/23 01/30/23 01/31/23 18:00 19:25 04:53 WBC 10.60 H 8.38 RBC 3.71 L 3.47 L Hgb 9.1 L 8.4 L Hct 31.3 L 29.1 L MCV 84.4 83.9 MCH 24.5 L 24.2 L MCHC 29.1 L 28.9 L RDW Coeff of [place] 17.4 H 17.1 H Plt Count 215 227 Immature Gran % (Auto) 0.4 0.6 Neut % (Auto) 78.5 H 94.3 H Lymph % (Auto) 12.9 4.4 L [place] % (Auto) 4.8 0.4 Eos % (Auto) 3.2 0.2 Baso % (Auto) 0.2 0.1 Neut # (Auto) 8.3 H 7.9 H Lymph # (Auto) 1.4 0.4 L [place] # (Auto) 0.5 0.0 L Eos # (Auto) 0.3 0.0 Baso # (Auto) 0.0 0.0 Immature Gran # (Auto) 0.0 0.1 Sodium 134.5 131.4 L Potassium 4.05 3.89 Chloride 92.6 L 93.7 L Carbon Dioxide 35.0 H 30.7 H Anion Gap 10.95 10.89 BUN 15.4 16.3 Creatinine 1.29 1.07 Estimated GFR (MDRD) 41.00 50.00 BUN/Creatinine Ratio 11.93 15.23 Glucose 109.3 H 213.5 H D Calcium 8.95 8.74 Iron 36.8 L TIBC 267 % Saturation 14 Ferritin 49.50 Total Bilirubin 0.74 0.71 AST 18.6 19.5 ALT 11.0 13.4 Alkaline Phosphatase 104.2 85.6 Troponin I < 0.012 NT-Pro-B Natriuret Pep 116 Total Protein 7.41 6.98 Albumin 3.80 3.58 Globulin 3.61 3.40 Albumin/Globulin Ratio 1.05 1.05 SARS CoV-2 RNA Rapid JAYDON Negative Imaging Imaging: EXAM: CHEST ONE-VIEW COMPARISON: Chest radiographs from 11/18/2022 FINDINGS: The previous also is stable. A small left pleural effusion is detected with subjacent opacity. The pulmonary vasculature is normal. No pneumothoraces. IMPRESSION: 1. Small left pleural effusion with subjacent atelectasis and/or infiltrate. Review Statement Review Statement: I have independently reviewed and interpreted the labs/EKGs/imaging that were ordered by the ER provider. I have reviewed all outside records that are available currently in our EMR including imaging/notes/labs from previous visits. Plan Plan: 1. COPD exacerbation - on baseline O2, SOB on exertion, Levaquin 500 mg IVPB daily, albuterol 2.5 mg nebs PRN wheezing, Duoneb 3 mL RT Q4, 2. Iron deficiency anemia - chronic, iron low, Ferrous sulfate 324 mg BID, CBC daily 3. CHFm unknown type - Chronic, stable, not in exacerbation, I&O, daily weight, continue home medications 4. Hypertension - Chronic, stable, continue home medications 5. Hyperlipidemia - Chronic, stable, continue home medications DVT Prophylaxis: Ambulation Time Spent: Greater than 80 minutes spent with patient, 50% of the time spent with this patient was devoted to counseling and coordination of care. [facility] Plannin minutes spent discussing advance care planning. Disposition: Admit to: Med/Surg Observation Full Code Discussed Plan of Care with Dr. Miley Kelley. Medications Medication Orders: Medications Ordered Category Date Time Status 0.9 % Sodium Chloride [Saline Flush] Meds 01/31/23 05:00 Active 1 syr IVF Q8HR Acetaminophen [Tylenol] Meds 01/30/23 20:57 Active 650 mg PO Q4H PRN Albuterol Sulfate 0.083% Neb [Albuterol 0.083% Neb] Meds 01/30/23 20:57 Active 2.5 mg NEB RTQID PRN Ferrous Sulfate Meds 01/31/23 10:00 Active 324 mg PO BID Furosemide [Lasix Tab] Meds 02/01/23 06:00 Active 20 mg PO QDAC2 Hydroxyzine HCl [Atarax] Meds 01/30/23 23:45 Active 50 mg PO BEDTIME Ipratropium/Albuterol Neb [Duoneb] Meds 01/31/23 02:00 Active 3 ml NEB RTQ4H Levofloxacin/D5w [Levaquin 750 mg/150 ml D5w] Meds 01/31/23 09:00 Active 750 mg in 150 ml IV DAILY Levothyroxine Sodium [Synthroid] Meds 01/31/23 09:00 Active 75 mcg PO QDAC2 Methylprednisolone Sod Succ/Pf [Solu-Medrol 40 mg] Meds 01/31/23 05:00 Active 40 mg IVP Q8H Metoprolol Succinate [Toprol Xl] Meds 01/31/23 09:00 Active 25 mg PO DAILY Omeprazole [Prilosec] Meds 01/31/23 17:00 Active 20 mg PO BIDAC2 Potassium Chloride [Potassium Chl 10% Oral Lily] Meds 01/31/23 07:30 Active 20 meq PO BIDWM2 Sertraline HCl [Zoloft] Meds 01/31/23 21:00 Active 50 mg PO BEDTIME
[2023-01-31] MEDS: PRILOSEC PO SCH (16:55)
[2023-01-31] MEDS ORDERED: ZOLOFT PO SCH (21:00)
[2023-02-01] MEDS: DUONEB NEB SCH ×3 (01:07→09:42)
[2023-02-01 02:15] VITALS: RESP 17
[2023-02-01 05:27] LABS: BASOPHILS % (AUTO) 0.1 % (0.0-3.0); EOSINOPHILS # (AUTO) 0.1 K/ul (0.0-0.7); EOSINOPHILS % (AUTO) 0.3 % (0.0-7.0); HEMATOCRIT 26.9 % (37.0-47.0); HEMOGLOBIN 8.1 g/dl (12.0-16.0); IMMATURE GRANULOCYTE # (AUTO) 0.1 (0.0-1.0); IMMATURE GRANULOCYTE % (AUTO) 0.8 % (0.0-5.0); LYMPHOCYTES # (AUTO) 0.9 K/uL (0.60-3.4); LYMPHOCYTES % (AUTO) 5.4 (10.0-50.0); MEAN CORPUSCULAR HEMOGLOBIN 24.8 pg (27.0-31.0); MEAN CORPUSCULAR HGB CONC 30.1 (31.8-35.4); MEAN CORPUSCULAR VOLUME 82.3 fl (81.0-99.0); MONOCYTES # (AUTO) 0.6 K/uL (0.4-2.0); MONOCYTES % (AUTO) 3.8 (0-10); NEUTROPHILS # (AUTO) 15.2 K/ul (2.0-6.9); NEUTROPHILS % (AUTO) 89.6 % (42.2-75.2); PLATELET COUNT 251 10^3/uL (140-440); RDW COEFFICIENT OF VARIATION 17.5 % (11.6-14.8); RED BLOOD COUNT 3.27 10^6/ul (4.20-5.40); WHITE BLOOD COUNT 16.99 K/ul (4.6-10.2)
[2023-02-01] MEDS: SYNTHROID PO SCH (05:28)
[2023-02-01] MEDS: PRILOSEC PO SCH (05:28)
[2023-02-01 05:42] LABS: ALANINE AMINOTRANSFERASE 14.3 U/L (0-35); ALBUMIN 3.53 g/dL (3.5-5.0); ALKALINE PHOSPHATASE 77.8 U/L (53-141); ASPARTATE AMINO TRANSFERASE 23.4 U/L (14-36); BILIRUBIN,TOTAL 0.32 mg/dL (0.2-1.3); BLOOD UREA NITROGEN 21.8 mg/dL (7-17); CALCIUM 8.49 mg/dL (8.4-10.2); CARBON DIOXIDE 32.8 mmol/L (22-30.0); CHLORIDE 93.6 mmol/L (98-107); CREATININE 1.36 mg/dL (0.60-1.30); POTASSIUM 4.21 mmol/L (3.5-5.1); SODIUM 133.4 mmol/L (134.5-145); TOTAL PROTEIN 6.71 g/dL (6.3-8.2)
[2023-02-01 05:51] VITALS: BP 110/65; PULSE 78; TEMP 98.5
[2023-02-01] MEDS: SOLU-MEDROL 40 MG IVP SCH (05:59)
[2023-02-01] MEDS ORDERED: LASIX TAB PO SCH (06:00)
[2023-02-01] MEDS: LEVAQUIN 750 MG/150 ML D5W 750 MG/150 ML BAG IV SCH (08:12)
[2023-02-01] MEDS: POTASSIUM CHL 10% ORAL SOL PO SCH (08:13)
[2023-02-01] MEDS: FERROUS SULFATE PO SCH (08:13)
[2023-02-01] MEDS: TOPROL XL PO SCH (08:13)
--- NOTE | 2023-02-01 09:39 | DCSUM ---
Admission Date Admission Date: 01/30/23 Discharge Date Discharge Date: 02/01/23 Admission Diagnosis Admission Diagnosis: 1. COPD exacerbation 2. Iron deficiency anemia 3. CHF unknown type 4. Hypertension 5. Hyperlipidemia Discharge Diagnosis Discharge Diagnosis: 1. COPD exacerbation - Improving 2. Iron deficiency anemia - Stable 3. CHF unknown type - Stable 4. Hypertension - Stable 5. Hyperlipidemia - Stable Hospital Provider Hospital Provider: ALESSANDRA VELA, [facility] [place] Primary Care Physician Primary Care Physician: LUIS MIGUEL FONG MD Summary of History and Physical Summary of History and Physical: This 72 year old female presented to the ER with shortness of breath that started earlier in the day. She states she used her inhalers prior to calling EMS without relief of symptoms. She has a history of COPD and wears 3L O2 continuously. Her chest X-Ray showed small left pleural effusion. She received Levaquin IV, Albuterol nebulizer treatment, and Methylprednisolone 125 mg in the ER. She states that she is feeling a little better today but still not breathing well. Denies any fever, chills, chest pain, productive cough, or other symptoms. Hospital Course Subjective: Over course of stay, patient has received levaquin, nebulizer treatments, and steroids for treatment of COPD exacerbation. Has not required additional oxygen during stay and remained on home 3L via [place]. Hemoglobin was found to be chronically low. Iron studies completed and low. Started on ferrous sulfate 324mg BID. WBC did increase, however, procal negative and has been receiving steroids during stay. Likely reactive. All other home medications continued. No changes made. Patient had complaints of continued weakness at home and has no transportation for her to received physical therapy. Discussed options with patient and she would like to receive home health if able. Requires walker for ambulation daily. Appearance: Pleasant, No Apparent Distress and Alert HEENT: MMM and Supple CVS: No Murmur Abdomen: Soft, Non-Tender and No Distention Respiratory: No Dyspnea Extremities: No Edema, No Calf Tenderness and Other (chronic venous stasis bilaterally) Vital Signs: Most Recent Vital Signs Temperature 98.5 F 02/01/23 05:47 Temperature Source Oral 02/01/23 05:47 Temperature Source Oral 01/30/23 18:12 Pulse Rate 78 02/01/23 05:47 Respiratory Rate 17 02/01/23 05:47 Blood Pressure 110/65 02/01/23 05:47 Blood Pressure Mean 80 02/01/23 05:47 Blood Pressure Left Arm 156/88 01/30/23 22:19 Blood Pressure Location Left Arm 02/01/23 05:47 Blood Pressure Position Supine 02/01/23 05:47 O2 Sat by Pulse Oximetry 97 02/01/23 05:47 Oxygen Delivery Method Nasal Cannula 02/01/23 07:28 Oxygen Flow Rate 3 02/01/23 07:28 Height 5 ft 3 in 01/31/23 09:11 Weight 189 lb 7 oz 02/01/23 05:47 Telemetry Type Remote Telemetry 02/01/23 07:00 Telemetry Monitoring Continues 02/01/23 07:00 Telemetry Heart Rate 87 02/01/23 07:00 Telemetry SPO2 100 02/01/23 07:00 EKG MD Interval 0.17 02/01/23 07:00 EKG QRS Interval 0.08 02/01/23 07:00 Telemetry Strip Reading SR 02/01/23 07:00 Lab Results Last 24 Hours: 02/01/23 01/31/23 04:53 04:53 WBC 16.99 H D RBC 3.27 L Hgb 8.1 L Hct 26.9 L MCV 82.3 MCH 24.8 L MCHC 30.1 L RDW Coeff of [place] 17.5 H Plt Count 251 Immature Gran % (Auto) 0.8 Neut % (Auto) 89.6 H Lymph % (Auto) 5.4 L [place] % (Auto) 3.8 Eos % (Auto) 0.3 Baso % (Auto) 0.1 Neut # (Auto) 15.2 H Lymph # (Auto) 0.9 [place] # (Auto) 0.6 Eos # (Auto) 0.1 Baso # (Auto) 0.0 Immature Gran # (Auto) 0.1 Sodium 133.4 L Potassium 4.21 Chloride 93.6 L Carbon Dioxide 32.8 H Anion Gap 11.21 BUN 21.8 H Creatinine 1.36 H Estimated GFR (MDRD) 38.00 BUN/Creatinine Ratio 16.02 Glucose 148.0 H D Calcium 8.49 Ferritin 49.50 Total Bilirubin 0.32 AST 23.4 ALT 14.3 Alkaline Phosphatase 77.8 Total Protein 6.71 Albumin 3.53 Globulin 3.18 Albumin/Globulin Ratio 1.11 Procalcitonin < 0.05 Discharge Instructions Discharge Planning: Discharge Planning > 40 minutes If patient is discharged with left ventricular systolic dysfunction: NA Discharged with a beta tomas? [] If no, why not? [] Discharged with an charleen/arb? [] If no, why not? [] Regular diet Activity as tolerated Home health PT/OT Complete course of levaquin and steroids for treatment of COPD exacerbation Start taking iron twice a day for iron deficiency anemia Follow-up with PCP next week. Discharge Medications: Medications at Discharge (Home Meds & RX) metoprolol succinate 25 mg tablet,extended release 24 hr 25 mg PO QDAY #90 tabs 09/08/21 hydroxyzine HCl 50 mg tablet 50 mg PO QHS #90 tabs 10/08/21 levothyroxine 75 mcg tablet 75 mcg PO QDAY #90 tabs 10/08/21 furosemide 20 mg tablet 20 mg PO QAM #90 tabs 11/10/21 albuterol sulfate 90 mcg/actuation aerosol inhaler (Ventolin HFA) See Rx Instructions .Route .COMPLEX #18 grams 10/26/22 omeprazole 20 mg capsule,delayed release 20 mg PO BID 11/18/22 potassium chloride 20 mEq/15 mL oral liquid 20 meq PO BID 11/18/22 sertraline 50 mg tablet 50 mg PO .hs 11/18/22 fluticasone furoate 100 mcg-vilanterol 25 mcg/dose inhalation powder (Breo Ellipta) 1 inh inhalation DAILY 01/30/23 ferrous sulfate 324 mg (65 mg iron) tablet,delayed release 324 mg PO BID #60 tabs 02/01/23 levofloxacin 750 mg tablet 750 mg PO Q24H #7 tabs 02/01/23 methylprednisolone 4 mg tablets in a dose pack (Medrol (Genn[place])) See Rx Instructions PO .COMPLEX #21 ea 02/01/23 Discharge Plan Discharge Discharge Orders: Discharge Patient (ONCE); Ordered 02/01/23 Ordered By: SHERRY COLON Activity Restrictions/Additional Instructions: Regular diet Activity as tolerated Home health PT/OT Complete course of levaquin and steroids for treatment of COPD exacerbation Start taking iron twice a day for iron deficiency anemia Follow-up with PCP next week. Instructions: Iron Deficiency Anemia (GEN), COPD (Chronic Obstructive Pulmonary Disease) (ED) Care Plan Goals: Problem: Impaired Respiratory Status Goal: Exhibit optimal respiratory function Instructions: Activities as tolerated Apply oxygen as ordered Elevate head of bed Notify MD of increased congestion Patient Disposition: HOME WITH FAMILY CARE Prescriptions: New ferrous sulfate 324 mg (65 mg iron) Tablet,Delayed Release (Dr/Ec) 324 mg PO BID Qty: 60 0RF levofloxacin 750 mg tablet 750 mg PO Q24H Qty: 7 0RF methylprednisolone [Medrol (Gennrao)] 4 mg tablets,dose pack See Rx Instructions .ROUTE .COMPLEX Qty: 21 0RF Rx Instructions: orally per package directions Continued metoprolol succinate 25 mg tablet extended release 24 hr 25 mg PO QDAY Qty: 90 1RF hydroxyzine HCl 50 mg tablet 50 mg PO QHS Qty: 90 0RF levothyroxine 75 mcg tablet 75 mcg PO QDAY Qty: 90 0RF furosemide 20 mg tablet 20 mg PO QAM Qty: 90 0RF albuterol sulfate [Ventolin HFA] 90 mcg/actuation HFA aerosol inhaler See Rx Instructions .ROUTE .COMPLEX Qty: 18 0RF Dose Instruction: INHALE 2 PUFFS EVERY FOUR TO SIX HOURS NEEDED FOR SHORTNESS OF BREATH OR WHEEZING Rx Instructions: INHALE 2 PUFFS EVERY FOUR TO SIX HOURS NEEDED FOR SHORTNESS OF BREATH OR WHEEZING omeprazole 20 mg capsule,delayed release(DR/EC) 20 mg PO BID Patient Comments: TAKE 1 CAPSULE BY MOUTH TWICE DAILY sertraline 50 mg tablet 50 mg PO .hs Patient Comments: TAKE 1 AND 1/2 TABLETS BY MOUTH EVERY DAY AT BEDTIME potassium chloride 20 mEq/15 mL liquid 20 meq PO BID Patient Comments: TAKE 15 ML BY MOUTH EVERY DAY WITH MEALS fluticasone furoate-vilanterol [Breo Ellipta] 100-25 mcg/dose blister with device 1 inh INHALATION DAILY Patient Comments: INHALE 1 PUFF BY MOUTH EVERY DAY Did you review [place] [employer] for ALL controlled substances?: No Discussed opioids are addictive and Narcan is available by prescription or from pharmacy.: No Condition: Poor
[2023-02-01] MEDS ORDERED: NYSTATIN ORAL SUSP PO ONE (10:44)
[2023-02-03] MEDS ORDERED: LEVAQUIN 750 MG/150 ML D5W 750 MG/150 ML BAG IV SCH (09:00)
== END 2023-02-01 13:07 | disposition home or self-care (01) ==
LOC: MEDSURG B 17:29 → ED 17:29 → MEDSURG B 22:25
PROVIDERS: ADMIT Hospitalist; ATTEND Nurse Practitioner Family
DX: E78.5 Hyperlipidemia, unspecified; Z20.822 Contact with and (suspected) exposure to COVID-19; D50.9 Iron deficiency anemia, unspecified; J44.1 Chronic obstructive pulmonary disease with (acute) exacerbation; F17.210 Nicotine dependence, cigarettes, uncomplicated; I10 Essential (primary) hypertension